=== PATIENT | female | born 1960 | race Caucasian/White ===

== ENCOUNTER 2020-02-05 20:45 | Emergency (ER) | payer MEDICARE, MEDICAID, SELFPAY ==
[2020-02-05 21:00] VITALS: BP 139/71; BP 150/61; PULSE 83; PULSE 98; RESP 24; TEMP 36.6; O2SAT 94; O2SAT 96; BMI 40.7
--- NOTE | 2020-02-05 21:14 | ECG_ITS ---
Test Reason : DIABEETES Blood Pressure : / mmHG Vent. Rate : 082 BPM Atrial Rate : 082 BPM P-R Int : 128 ms QRS Dur : 080 ms QT Int : 372 ms P-R-T Axes : 079 071 068 degrees QTc Int : 434 ms Normal sinus rhythm Normal ECG When compared with ECG of 23-AUG-2011 15:49, Questionable change in QRS axis T wave inversion no longer evident in Inferior leads Referred By: Gladys Pedersen Electronically Signed By:DESHAUN GOEL MD
--- NOTE | 2020-02-05 21:15 | XR_ITS ---
EXAMINATION: XR CHEST CLINICAL INFORMATION: Cough COMPARISON: Chest x-ray 10/25/2018 TECHNIQUE: 2 views of the chest were obtained. FINDINGS: Cardiac silhouette is normal in size. Lungs are well aerated. No lobar consolidation. No pleural effusion or pneumothorax. Moderate degenerative changes of the thoracic spine. Partially visualized fusion hardware of the cervical spine. Calcification adjacent to the right humeral head consistent with tendinosis. IMPRESSION: No acute pulmonary pathology.
--- NOTE | 2020-02-05 21:18 | ED.GENADULT ---
HPI - General Adult General Chief complaint: General Medical Stated complaint: nausea Time Seen by Provider: 02/05/20 21:14 History of Present Illness HPI narrative: This is a 59-year-old female smoker who states that she has become progressively more fatigued with associated increase in thirst and urination and noted that she had a bad yeast infection in her perineal area. She states that she contacted her primary care provider to set up an appointment, but is still waiting to hear back. Patient sources that she then proceeded to urgent care where she was noted to have a point of care glucose greater than 500. In addition, patient states that she has COPD and is not currently on any medication and has had some feelings of increased shortness of breath but denies any fevers, chills, new cough, increased phlegm production. In addition, patient states she has felt like she has gained weight with an increase in abdominal girth and some noted bilateral lower extremity swelling. Related Data Previous Rx's Medication Instructions Recorded gabapentin 800 mg tablet See Rx Instructions PO TID #60 tab 02/03/20 metformin 500 mg PO BID 14 Days #28 tab 02/06/20 Allergies Allergy/AdvReac Type Severity Reaction Status Date / Time bupropion [From WELLBUTRIN] Allergy Intermediate ITCHING Unverified 01/07/20 17:55 amoxicillin [AMOXICILLIN] Allergy Unknown UNKNOWN Unverified 01/07/20 17:55 influenza virus vaccine, Allergy Unknown RASH Unverified 01/07/20 17:55 specific [FLU VACCINE] latex [Latex] Allergy Unknown UNKNOWN Unverified 01/07/20 17:55 latex Allergy Unknown rash Unverified 10/20/19 00:00 phenazopyridine [Pyridium] Allergy Unknown Verified 08/26/19 00:00 Sulfa (Sulfonamide Allergy Unknown UNKNOWN, Unverified 01/07/20 17:55 Antibiotics) itch, itching vancomycin Allergy Unknown unknown Unverified 10/20/19 00:00 reaction adhesive bandage Allergy Unknown Uncoded 08/26/19 00:00 Influenza Vac Typ A&B Surf Allergy Unknown rash Uncoded 10/20/19 00:00 Ant influenza virus vaccine Allergy Unknown rash Uncoded 08/26/19 00:00 Review of Systems Review of Systems: Pertinent positives and negatives as stated in HPI 10 point review of systems is otherwise negative. PMFSH Past Medical History Source: nursing notes reviewed Medical History Asthma COPD (chronic obstructive pulmonary disease) Social History Social History Advance Directives: No Advance Directives Information Provided: Yes Physical Exam Vital Signs: Vital Signs: Vital Signs Temp Pulse Resp BP Pulse Ox 02/05/20 22:00 98.2 F 89 16 109/53 L 94 02/05/20 21:00 98 F 83 24 H 150/61 H 94 Body Mass Index 40.7 VITAL SIGNS: Reviewed. GENERAL: Well developed, well nourished, in no acute distress. HEAD: Normocephalic/atraumatic, EYES: PERRLA, EOMI intact without pain, no nystagmus/pallor/icterus noted EARS: Ext canals without abnormality, TMs non-bulging and non-erythematous NOSE: Nares patent bilateral OROPHARYNX: no oral lesions noted, posterior pharynx clear and non-erythematous without noted tonsillar enlargement/erythema/exudates NECK: Supple, no adenopathy LUNGS: Normal breath sounds. No adventitious sounds or accessory muscle use. SpO2<94%> CARDIOVASCULAR: Regular rate and rhythm without noted murmurs, no JVD , bilateral lower extremity non pitting edema. ABDOMEN: obese,Soft, non-tender, non-distended with bowel sounds. No rigidity. No guarding. No palpable masses or hernias noted MUSCULOSKELETAL: No tenderness, deformities, or effusions noted on gross inspection. EXTREMITIES: No cyanosis, clubbing or edema. SKIN: Inspection of the skin reveals no rashes, ulcerations, jaundice, pallor, or petechiae. NEUROLOGIC: Alert and oriented x 4. Strength and sensation to light touch were grossly intact Course Course Course Narrative: This is a 59-year-old female with history and clinical presentation consistent with new diagnosis of diabetes. Labs, chest x-ray, EKG, as well as 2 L of IV fluid were ordered. On review of all investigations there is no evidence for acute infection or anemia, no evidence of DKA /HHS and patient improved with 2 L of IV fluids with the decrease an point of care glucose from 558 to just over 300. patient was also treated for [place] vulvovaginitis with fluconazole as well as initial dose of metformin. All results and findings were discussed with her bedside and she was discharged to home with a 2 week prescription for metformin and strict recommendations to follow-up with her primary care provider. Review of EKG and chest x-ray were negative for any acute abnormalities. Medical Decision Making Lab Data Result diagrams: 02/05/20 21:25 02/05/20 21:25 Labs: Lab Results 02/05/20 02/05/20 02/05/20 Range/Units 21:25 21:25 21:25 WBC 7.8 (4.8-10.8) X10*3/uL RBC 4.84 (4.20-5.50) X10*6/uL Hgb 14.6 (12.0-16.0) g/dl Hct 43.4 (37-47) % MCV 89.7 (80-98) fL MCH 30.2 (27.0-33.0) pg MCHC 33.6 (31.0-35.0) g/dl RDW 13.0 (11.0-16.0) % Plt Count 149 L (160-400) X10*3/uL MPV 10.0 (9.4-12.3) fL Immature Gran % (Auto) 0.3 (0.0-0.4) % Neut % (Auto) 64.2 (45-73) % Lymph % (Auto) 29.0 (20-40) % [place] % (Auto) 5.8 (2-11) % Eos % (Auto) 0.4 (0-4) % Baso % (Auto) 0.3 (0-2) % Lymph # (Auto) 2.3 (1.2-4.9) X10*3/uL [place] # (Auto) 0.5 (0.1-1.2) X10*3/uL Eos # (Auto) 0.0 (0.0-0.4) X10*3/uL Baso # (Auto) 0.0 (0.0-0.2) X10*3/uL Abs Immat Gran (auto) 0.02 (0.00-0.03) X10*3/uL Absolute Neuts (auto) 5.0 (2.0-8.3) X10*3/uL Absolute Nucleated RBC 0.000 (0.0-0.012) X10*3/uL Nucleated RBC % (auto) 0.0 (0.0-0.2) /100WBC Smear Tech's Comments VERIFIED Sodium (135-145) mmol/L Potassium (3.3-5.1) mmol/l Chloride (96-108) mmol/L Carbon Dioxide (22-29) mmol/L Anion Gap (12-20) BUN (9-16) mg/dL Creatinine (0.5-1.4) mg/dL Estim Creat Clear Calc Estimated GFR Random Glucose (60-115) mg/dL Calcium (8.4-10.2) mg/dL Magnesium (1.6-2.6) mg/dL Total Bilirubin (0.0-1.0) mg/dL AST (5-31) U/L ALT (0-31) U/L Alkaline Phosphatase (39-117) U/L Total Protein (6.5-8.0) g/dL Albumin (3.5-5.0) g/dL Urine Color YELLOW Urine Appearance CLEAR Urine pH 6.5 (5.0-8.0) Ur Specific [place] <= 1.005 (1.005-1.025) Urine Protein NEG (NEG-TRACE) MG/DL Urine Glucose (UA) >=1000 H (NEG) MG/DL Urine Ketones 5 (NEG) MG/DL Urine Blood TRACE (NEG) Urine Nitrite NEG (NEG) Ur Leukocyte Esterase NEG (NEG) Urine RBC 0-2 (0) /HPF Urine WBC 0 (0-4) /HPF Ur Squamous Epith Cells TRACE /LPF Urine Bacteria TRACE /LPF Urine Yeast TRACE /HPF Acetone, Qual Small H (Negative) 02/05/20 Range/Units 21:25 WBC (4.8-10.8) X10*3/uL RBC (4.20-5.50) X10*6/uL Hgb (12.0-16.0) g/dl Hct (37-47) % MCV (80-98) fL MCH (27.0-33.0) pg MCHC (31.0-35.0) g/dl RDW (11.0-16.0) % Plt Count (160-400) X10*3/uL MPV (9.4-12.3) fL Immature Gran % (Auto) (0.0-0.4) % Neut % (Auto) (45-73) % Lymph % (Auto) (20-40) % [place] % (Auto) (2-11) % Eos % (Auto) (0-4) % Baso % (Auto) (0-2) % Lymph # (Auto) (1.2-4.9) X10*3/uL [place] # (Auto) (0.1-1.2) X10*3/uL Eos # (Auto) (0.0-0.4) X10*3/uL Baso # (Auto) (0.0-0.2) X10*3/uL Abs Immat Gran (auto) (0.00-0.03) X10*3/uL Absolute Neuts (auto) (2.0-8.3) X10*3/uL Absolute Nucleated RBC (0.0-0.012) X10*3/uL Nucleated RBC % (auto) (0.0-0.2) /100WBC Smear Tech's Comments Sodium 130 L (135-145) mmol/L Potassium 4.0 (3.3-5.1) mmol/l Chloride 90 L (96-108) mmol/L Carbon Dioxide 32 H (22-29) mmol/L Anion Gap 12 (12-20) BUN 6 L (9-16) mg/dL Creatinine 0.83 (0.5-1.4) mg/dL Estim Creat Clear Calc 86.4 Estimated GFR > 60 Random Glucose 558 H* (60-115) mg/dL Calcium 8.9 (8.4-10.2) mg/dL Magnesium 1.8 (1.6-2.6) mg/dL Total Bilirubin 0.3 (0.0-1.0) mg/dL AST 30 (5-31) U/L ALT 40 H (0-31) U/L Alkaline Phosphatase 98 (39-117) U/L Total Protein 6.5 (6.5-8.0) g/dL Albumin 3.8 (3.5-5.0) g/dL Urine Color Urine Appearance Urine pH (5.0-8.0) Ur Specific [place] (1.005-1.025) Urine Protein (NEG-TRACE) MG/DL Urine Glucose (UA) (NEG) MG/DL Urine Ketones (NEG) MG/DL Urine Blood (NEG) Urine Nitrite (NEG) Ur Leukocyte Esterase (NEG) Urine RBC (0) /HPF Urine WBC (0-4) /HPF Ur Squamous Epith Cells /LPF Urine Bacteria /LPF Urine Yeast /HPF Acetone, Qual (Negative) ECG Data Attestation: I personally reviewed and interpreted this ECG as follows: Interpretation: NSR, HR-82, no evidence of ischemia Discharge Plan Discharge Clinical Impression: Diabetes Qualifiers: Diabetes mellitus type: other specified (including SHANE) 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 Prescriptions: New metformin 500 mg tablet 500 mg PO BID 14 Days Qty: 28 RF: 0 No Action gabapentin 800 mg tablet See Rx Instructions PO TID Qty: 60 RF: 0 Referrals: Melissa Topete MD [Primary Care Provider] - 2 days (For further outpatient management of your newly diagnosed diabetes. You have been provided 14 days of metformin that should be taken twice daily.)
[2020-02-05 22:00] VITALS: BP 109/53; PULSE 89; RESP 16; TEMP 36.8; O2SAT 94
[2020-02-05 22:06] LABS: Basophils Percent Auto 0.3 % (0-2); Hematocrit 43.4 % (37-47); Hemoglobin 14.6 g/dl (12.0-16.0); Imm Gran Abs Auto 0.02 X10*3/uL (0.00-0.03); Imm Gran Pct Auto 0.3 % (0.0-0.4); MANUAL DIFF FLAG SCAN; Mean Corpuscular HGB Conc 33.6 g/dl (31.0-35.0); Mean Corpuscular Hemoglobin 30.2 pg (27.0-33.0); Mean Corpuscular Volume 89.7 fL (80-98); Monocytes Absolute Auto 0.5 X10*3/uL (0.1-1.2); PLT CLUMP 1; Red Blood Count 4.84 X10*6/uL (4.20-5.50); SCAN SMEAR FLAG 1
[2020-02-05 22:07] LABS: Eosinophils Percent Auto 0.4 % (0-4); Lymphocytes Absolute Auto 2.3 X10*3/uL (1.2-4.9); Monocytes Percent Auto 5.8 % (2-11); Neutrophils Percent Auto 64.2 % (45-73); Platelet Count 149 X10*3/uL (160-400); White Blood Count 7.8 X10*3/uL (4.8-10.8)
[2020-02-05 22:25] LABS: Glucose Urine UA >=1000 MG/DL (NEG); Leukocyte Esterase Urine NEG (NEG); Nitrite Urine NEG (NEG); PH 6.5 (5.0-8.0); Specific Gravity - Urine <= 1.005 (1.005-1.025); Urine Blood TRACE (NEG); Urine Ketones 5 MG/DL (NEG); Urine Protein NEG (NEG-TRACE)
[2020-02-05 22:30] LABS: Acetone, serum QL Small (Negative)
[2020-02-05 22:32] LABS: Appearance Urine CLEAR; Color Urine YELLOW
[2020-02-05 22:38] LABS: SLIDE REVIEW VERIFIED
[2020-02-05] MEDS: 0.9 % Sodium Chloride 1,000 ML 999 ML IVCONT (22:40)
[2020-02-05 22:45] LABS: Alanine Aminotransferase 40 U/L (0-31); Albumin Level 3.8 g/dL (3.5-5.0); Alkaline Phosphatase 98 U/L (39-117); Anion Gap 12 (12-20); Aspartate Amino Transferase 30 U/L (5-31); Bilirubin Total 0.3 mg/dL (0.0-1.0); Blood Urea Nitrogen 6 mg/dL (9-16); Calcium 8.9 mg/dL (8.4-10.2); Carbon Dioxide 32 mmol/L (22-29); Chloride 90 mmol/L (96-108); Creatinine Clr Calc Pharmacy 86.4; Estimated Glomerular Filt Rate > 60; Glucose Random 558 mg/dL (60-115); Magnesium 1.8 mg/dL (1.6-2.6); Sodium 130 mmol/L (135-145); Total Protein 6.5 g/dL (6.5-8.0)
[2020-02-05 23:06] LABS: Bacteria Urine TRACE /LPF; RBC Urine 0-2 /HPF (0); Squamous Epithelial Cell Urine TRACE /LPF; WBC Urine 0 /HPF (0-4)
[2020-02-05] MEDS: Fluconazole 150 MG TABLET PO (23:48)
[2020-02-06] MEDS: metFORMIN HCl 500 MG TABLET PO (00:04)
[2020-02-06 01:00] LABS: Glucose, Whole Blood 398 mg/dL (60-115)
[2020-02-06] MEDS: 0.9 % Sodium Chloride 1,000 ML 999 ML IVCONT (01:21)
== END 2020-02-06 02:08 | disposition home or self-care (01) ==
PROVIDERS: Emergency Provider Student in an Organized Health Care Education/Training Program; PCP Internal Medicine
DX: E13.69 Other specified diabetes mellitus with other specified complication (principal); J44.9 Chronic obstructive pulmonary disease, unspecified; Z79.899 Other long term (current) drug therapy
CPT/HCPCS: 36415; 71046; 80053; 81001; 81003; 82009; 82947; 83735; 85025; 93005; 96360; 96361; 99283; 99284

== ENCOUNTER → 2020-04-05 08:28 | Outpatient (BNVA) | payer MEDICARE, MEDICAID, SELFPAY | PROVIDERS: PCP Internal Medicine; Referring Provider Internal Medicine; Visit Provider Internal Medicine Endocrinology, Diabetes & Metabolism | DX: Z76.89 Persons encountering health services in other specified circumstances (principal) | CPT/HCPCS: 82947; 99202 ==

== ENCOUNTER 2020-04-05 09:51 | Outpatient (REF) | payer MEDICARE, MEDICAID, SELFPAY ==
[2020-04-05 14:18] LABS: Alanine Aminotransferase 31 U/L (0-31); Alkaline Phosphatase 64 U/L (39-117); Anion Gap 18 (12-20); Aspartate Amino Transferase 33 U/L (5-31); Bilirubin Total 0.3 mg/dL (0.0-1.0); Blood Urea Nitrogen 8 mg/dL (9-16); Carbon Dioxide 26 mmol/L (22-29); Chloride 98 mmol/L (96-108); Estimated Glomerular Filt Rate > 60; Glucose Fasting 139 mg/dL (60-99); Potassium 4.5 mmol/l (3.3-5.1); Sodium 137 mmol/L (135-145)
[2020-04-05 14:24] LABS: Alanine Aminotransferase 31 U/L (0-31); Aspartate Amino Transferase 33 U/L (5-31); Cholesterol 275 mg/dL; HDL Cholesterol 42 mg/dL; LDL Cholesterol Calculated 158 mg/dl; Triglycerides 379 mg/dL
[2020-04-05 14:42] LABS: Creatinine Urine 120.84 mg/dL; Free T4 (Free Thyroxine) 1.03 ng/dL (0.71-1.85); Microalbum/Creatinine Ratio Ur 9.9 ug/mg cr; Vitamin D 25-OH Total 29.8 ng/mL (>30)
[2020-04-05 14:43] LABS: Vitamin B12 580 pg/mL (200-900)
[2020-04-06 06:58] LABS: LDL Cholesterol Direct 210 mg/dL (<100)
== END 2020-04-05 09:52 | disposition home or self-care (01) ==
LOC: HO.10HDL 09:51
PROVIDERS: Absent Provider Internal Medicine; PCP Internal Medicine; Visit Provider Internal Medicine Endocrinology, Diabetes & Metabolism
DX: E11.40 Type 2 diabetes mellitus with diabetic neuropathy, unspecified (principal); E11.65 Type 2 diabetes mellitus with hyperglycemia
CPT/HCPCS: 80053; 80061; 82043; 82306; 82607; 82947; 83721; 84439; 84443; 84450; 84460; 99202

== ENCOUNTER → 2020-05-16 14:22 | Outpatient (BNVA) | payer MEDICARE, MEDICAID, SELFPAY | PROVIDERS: PCP Internal Medicine; Visit Provider Dietitian, Registered ==

== ENCOUNTER → 2020-06-13 11:06 | Outpatient (BNVA) | payer MEDICARE, MEDICAID, SELFPAY | PROVIDERS: PCP Internal Medicine; Visit Provider Dietitian, Registered ==

== ENCOUNTER → 2020-07-06 14:12 | Outpatient (BNVA) | payer MEDICARE, MEDICAID, SELFPAY | PROVIDERS: PCP Internal Medicine; Visit Provider Internal Medicine Endocrinology, Diabetes & Metabolism | DX: E11.65 Type 2 diabetes mellitus with hyperglycemia (principal); E11.42 Type 2 diabetes mellitus with diabetic polyneuropathy; E78.5 Hyperlipidemia, unspecified; E66.01 Morbid (severe) obesity due to excess calories; Z68.41 Body mass index [BMI] 40.0-44.9, adult | CPT/HCPCS: 82947; 99212 ==

== ENCOUNTER 2021-02-20 | Outpatient (REF) | payer MEDICARE, MEDICAID, SELFPAY ==
[2021-02-21 12:56] LABS: Influenza A PCR NEGATIVE (Negative); Influenza B PCR NEGATIVE (Negative); Resp Syncy Virus RNA Qual PCR NEGATIVE (Negative); SARS COV2 PCR INHOUSE NEGATIVE (Negative)
== END 2021-02-20 00:01 | disposition home or self-care (01) ==
LOC: HO.LNP
PROVIDERS: Visit Provider Physician Assistant Medical
DX: Z20.822 Contact with and (suspected) exposure to COVID-19 (principal); N39.0 Urinary tract infection, site not specified; J06.9 Acute upper respiratory infection, unspecified; R05.9 Cough, unspecified
CPT/HCPCS: 0241U; 87086; 87088; 87186

== ENCOUNTER 2021-02-21 16:22 | Outpatient (REF) | payer MEDICARE, MEDICAID, SELFPAY ==
--- NOTE | ~2021-02-21 | XR_ITS ---
EXAMINATION: XR CHEST CLINICAL INFORMATION: Cough. COMPARISON: Chest x-ray February 05, 2020 TECHNIQUE: 2 views of the chest were obtained. FINDINGS: Lungs are clear. No pulmonary vascular congestion. There is no pleural effusion. The heart size is normal. The cardiac and mediastinal contours are normal. . There are multilevel degenerative changes of dorsal spine. Orthopedic plate and screw at lower cervical spine. XR/XR chest 2V IMPRESSION: No acute abnormality of the chest.
== END 2021-02-21 16:23 | disposition home or self-care (01) ==
LOC: HO.HMGCX 16:22
PROVIDERS: PCP Internal Medicine; Visit Provider Physician Assistant Medical
DX: R05.9 Cough, unspecified (principal)
CPT/HCPCS: 71046

== ENCOUNTER 2021-03-12 12:45 | Emergency (ER) | payer MEDICARE, MEDICAID, SELFPAY ==
--- NOTE | ~2021-03-12 | CT_ITS ---
EXAMINATION: CT HEAD WITHOUT CONTRAST CLINICAL INFORMATION: Right facial droop. Rule out stroke. COMPARISON: None TECHNIQUE: Contiguous axial imaging was performed from the skull base to vertex without intravenous administration of contrast. This CT examination was performed using dose optimization techniques as appropriate, variously including the following: *Automated exposure control *Adjustment of mA and/or kV according to patient size (this includes techniques or standardized protocols for targeted exams where dose is matched to indication/reason for exam; i.e. extremities or head) *Use of iterative reconstruction technique DLP: 688 mGy-cm FINDINGS: There is no evidence of acute intracranial hemorrhage or territorial infarction. No abnormal mass effect or midline shift is seen. Viera to white matter differentiation is well preserved. No extra-axial fluid collections are identified. No acute fracture.. The mastoid air cells and visualized portions of the paranasal sinuses are well aerated. CT/CT head/brain wo con IMPRESSION: No CT evidence of acute intracranial hemorrhage or edematous territorial infarction. Subtle early/evolving infarctions may not be evident on noncontrast CT . Consider further evaluation with CTA head or MRI, as clinically indicated.. The report will be called to the ordering clinician by a [facility] [employer].
--- NOTE | ~2021-03-12 | CT_ITS ---
EXAMINATION: CT FACIAL BONES WITH CONTRAST CLINICAL INFORMATION: Right facial swelling. Rule out abscess. COMPARISON: None TECHNIQUE: Axial images through the facial bones following contrast. The patient received 85 mL Omnipaque [address] examination was performed using dose optimization techniques as appropriate, variously including the following: *Automated exposure control *Adjustment of mA and/or kV according to patient size (this includes techniques or standardized protocols for targeted exams where dose is matched to indication/reason for exam; i.e. extremities or head) *Use of iterative reconstruction technique DLP: 295 mGy-cm FINDINGS: There is soft tissue swelling over the right side of the face and inferior preseptal soft tissues of the right orbit. There is poor dentition and multiple dental caries. There is increased soft tissue seen adjacent to the upper and lower teeth/first premolar questionable for a focal abscess. This measures 1 x 2 cm axial image 65 series 2. There are inflammatory changes in the right maxillary sinus with membranous soft tissue thickening. The paranasal sinuses are otherwise clear. There are degenerative changes of the temporomandibular joints. Visualized intracranial structures are normal. There are small bilateral cervical lymph nodes. There are degenerative changes of the cervical spine. There is postsurgical change at the C3-C4 disc space level. CT/CT facial bones w con IMPRESSION: Poor dentition and multiple dental caries. Soft tissue swelling over the right side of the face and inferior preseptal orbital soft tissues. Focal asymmetric soft tissue measuring 1 x 2 cm in the right side of the face adjacent to the upper and lower teeth/first premolar questionable for abscess. Right maxillary sinus disease.
--- NOTE | ~2021-03-12 | XR_ITS ---
EXAMINATION: XR KNEE, RIGHT CLINICAL INFORMATION: Right knee pain, rule out fracture COMPARISON: None TECHNIQUE: Four views of the right knee. FINDINGS: Bones and soft tissues are normal. No fracture or joint effusion. Alignment is anatomic. Mild medial compartment joint space narrowing. No abnormal soft tissue calcification. XR/XR knee RT 3V IMPRESSION: Mild degenerative disease of the right knee.
[2021-03-12 12:56] VITALS: BP 125/77; PULSE 93; RESP 18; TEMP 36.7; O2SAT 96; BMI 37.8
--- NOTE | 2021-03-12 14:55 | PC.NURSE ---
patient being moved from [facility] to ED 21
[2021-03-12 15:18] LABS: MANUAL DIFF FLAG NO
[2021-03-12 15:22] LABS: Basophils Percent Auto 0.3 % (0-2); Eosinophils Absolute Auto 0.1 X10*3/uL (0.0-0.4); Eosinophils Percent Auto 0.6 % (0-4); Hemoglobin 14.3 g/dl (12.0-16.0); Imm Gran Abs Auto 0.03 X10*3/uL (0.00-0.03); Imm Gran Pct Auto 0.3 % (0.0-0.4); Lymphocytes Absolute Auto 2.9 X10*3/uL (1.2-4.9); Lymphocytes Percent Auto 33.3 % (20-40); Mean Corpuscular HGB Conc 32.5 g/dl (31.0-35.0); Mean Corpuscular Hemoglobin 30.4 pg (27.0-33.0); Mean Corpuscular Volume 93.6 fL (80.0-98.0); Mean Platelet Volume 9.3 fL (9.4-12.3); Monocytes Absolute Auto 0.6 X10*3/uL (0.1-1.2); Monocytes Percent Auto 6.7 % (2-11); Neutrophils Absolute Auto 5.1 x10*3/uL (2.0-8.3); Neutrophils Percent Auto 58.8 % (45-73); Platelet Count 167 X10*3/uL (160-400); Red Cell Distribution Width 12.8 % (11.0-16.0); White Blood Count 8.8 X10*3/uL (4.8-10.8)
--- NOTE | 2021-03-12 15:25 | PC.NURSE ---
patient a&ox3, iv inserted, labs drawn, patient noted to have rt facial droop- with rt facial swelling noted, pt has equal back closer and strength in upper/lower extremities, no arm drift noted, speaking in clear/full sentences, able to close both eyes equally.
[2021-03-12 15:39] LABS: Alanine Aminotransferase 16 U/L (0-31); Albumin Level 3.7 g/dL (3.5-5.0); Alkaline Phosphatase 58 U/L (39-117); Anion Gap 15 (12-20); Aspartate Amino Transferase 14 U/L (5-31); Bilirubin Total 0.3 mg/dL (0.0-1.0); Blood Urea Nitrogen 7 mg/dL (9-16); C Reactive Protein 1.29 mg/dL (< or = 0.50); Calcium 9.2 mg/dL (8.4-10.2); Carbon Dioxide 26 mmol/L (22-29); Chloride 100 mmol/L (96-108); Creatinine Clr Calc Pharmacy 106.7; Estimated Glomerular Filt Rate > 60; Glucose Random 135 mg/dL (60-115); Potassium 4.4 mmol/L (3.3-5.1); Sodium 137 mmol/L (135-145); Total Protein 6.6 g/dL (6.5-8.0)
[2021-03-12 15:56] LABS: Appearance Urine HAZY; Color Urine DK YELLOW; Glucose Urine UA NEG (NEG); Leukocyte Esterase Urine 2+ (NEG); Nitrite Urine POS (NEG); Specific Gravity - Urine >= 1.030 (1.005-1.025); UACC Culture Trigger YES; Urine Blood 2+ (NEG); Urine Ketones 5 MG/DL (NEG); Urine Protein 1+ MG/DL (NEG-TRACE)
[2021-03-12 16:00] VITALS: BP 124/80; PULSE 92; RESP 18; TEMP 36.8; O2SAT 94
--- NOTE | 2021-03-12 16:03 | PC.NURSE ---
pt at radiology
[2021-03-12 16:04] LABS: Erythrocyte Sedimentation Rate 16 MM/HR (0-20)
[2021-03-12 16:35] LABS: WBC Urine TNTC /HPF (0-4)
[2021-03-12 16:36] LABS: Bacteria Urine 2+ /LPF; Calcium Oxalate Crystals Urine 1+ /LPF; Mucus Urine 1+ /LPF; Squamous Epithelial Cell Urine 1+ /LPF
--- NOTE | 2021-03-12 16:49 | ECG_ITS ---
Test Reason : CHEST PAIN Blood Pressure : / mmHG Vent. Rate : 087 BPM Atrial Rate : 087 BPM P-R Int : 132 ms QRS Dur : 074 ms QT Int : 344 ms P-R-T Axes : 070 072 066 degrees QTc Int : 413 ms Normal sinus rhythm Normal ECG When compared with ECG of 05-FEB-2020 22:18, No significant change was found Referred By: Tobias Mercer Electronically Signed By:DESHAUN GOEL MD
--- NOTE | 2021-03-12 16:51 | ED.GENADULT ---
HPI - General Adult General Chief complaint: General Medical Stated complaint: dental pain, rt knee pain, swelling Time Seen by Provider: 03/12/21 14:35 Source: patient and family () Mode of arrival: ambulatory Limitations: no limitations History of Present Illness HPI narrative: 60-year-old female who presents emergency department right-sided facial pain, right sided facial droop, right arm numbness, headache, nausea and dysuria x2 days. The patient is a difficult informed that his questions seem to make her angry. Patient states that 4 days prior she had chest pain the center of her chest, she states that she was seen in urgent care clinic and then went to [facility] and was discharged. She states that yesterday at 9:00 a.m. she developed right-sided facial pain with swelling. She felt that she may have had a dental infection. She states that this morning at 4:00 a.m., she woke up and her right side of her face was swollen. She also states that she was unable to move her right lip. She reported her that she had right arm tingling this but she denied this when I asked. She had associated headache which is since resolved. She had nausea with no vomiting. She has also noted dysuria and urinary frequency for 2 days and believes that she has a urinary tract infection. She is also complaining of right knee pain that she states is chronic but she has had for many years but it is worse over the past 1-2 weeks. The patient denies fever, chills, chest pain, shortness of breath, dyspnea on exertion. She has not had any myalgias arthralgias. She denies any known recent tick bites, she does not have any pets and she states she has not been in a wooded areas. Patient does have a history of opiate addiction but takes Suboxone 8 mg/2 mg twice a day. The patient was initially triaged EM area however given her multiple complaints, I did evaluate her in EM area and had her transferred to the emergency department for workup for possible stroke. Related Data Home Medications Medication Instructions Recorded Confirmed buprenorphine 8 mg-naloxone 2 mg 1 film BUCCAL DAILY 02/11/20 10/19/20 sublingual film (Suboxone) risperidone 4 mg tablet 4 mg PO BEDTIME 02/11/20 10/19/20 trazodone 100 mg tablet mg PO 02/11/20 10/19/20 dextroamphetamine-amphetamine 30 1 tab PO BID 02/18/20 10/19/20 mg tablet divalproex 500 mg tablet,extended mg PO 02/18/20 10/19/20 release 24 hr ondansetron HCl 4 mg tablet 4 mg PO Q8H 04/12/20 10/19/20 Previous Rx's Medication Instructions Recorded blood sugar diagnostic (FreeStyle #100 ea 02/23/20 Lite Strips) blood-glucose meter (FreeStyle #1 ea 02/23/20 [place] Lite) lancets 28 gauge (FreeStyle #100 ea 02/23/20 Lancets) diclofenac sodium 1 % topical gel 2 g TOPICAL BID PRN #100 g 06/16/20 walker with seat #1 ea 08/11/20 Shower Chair #1 ea 08/18/20 albuterol sulfate 90 mcg/actuation 2 puff PO Q4H PRN #8.5 g 10/19/20 aerosol inhaler metformin 1,000 mg tablet 1,000 mg PO BID 30 Days #60 tab 11/16/20 Symbicort 160 mcg-4.5 2 puff PO BID #10.2 g NS 12/28/20 mcg/actuation HFA aerosol inhaler (budesonide-formoterol) cefpodoxime 200 mg tablet 200 mg PO BID #14 tab 02/20/21 doxycycline hyclate 100 mg tablet 100 mg PO BID 5 Days #10 tab 02/20/21 prednisone 20 mg tablet 40 mg PO DAILY 5 Days #10 tab 02/20/21 gabapentin 800 mg tablet 800 mg PO TID #90 tab 03/06/21 Allergies Allergy/AdvReac Type Severity Reaction Status Date / Time bupropion [From WELLBUTRIN] Allergy Intermediate ITCHING Verified 03/12/21 12:56 influenza virus vaccine, Allergy Unknown RASH Verified 03/12/21 12:56 specific [FLU VACCINE] latex Allergy Unknown rash Verified 03/12/21 12:56 Sulfa (Sulfonamide Allergy Unknown UNKNOWN, Verified 03/12/21 12:56 Antibiotics) itch, itching Review of Systems Review of Systems: Yes all other systems are reviewed and are negative PMFSH Past Medical History Medical History Cigarette smoker motivated to quit COPD (chronic obstructive pulmonary disease) Depression Diabetes mellitus with hyperglycemia, without long-term current use of insulin Diabetic neuropathy Dyslipidemia Dysuria GERD (gastroesophageal reflux disease) Left shoulder pain Lumbar degenerative disc disease Mixed incontinence urge and stress Nausea Obesity Opiate addiction TEA on CPAP Patchy loss of hair Smoker unmotivated to quit Type 2 diabetes mellitus without complication, with no history of insulin use Surgical History H/O colonoscopy H/O tubal ligation History of lumbar fusion History of lumbar spinal fusion History of partial hysterectomy Hx of cholecystectomy Family History Family History Father Aneurysm Social History Social History Alcohol intake: never Cigarette Packs Per Day: 0.5 Cigarettes Per Day: 10 Advance Directives: No Advance Directives Information Provided: Yes Patient : No Physical Exam Vital Signs: Vital Signs: Last Vital Signs Temp 98.3 F 03/12/21 16:00 Pulse 92 03/12/21 16:00 Resp 18 03/12/21 16:00 BP 124/80 03/12/21 16:00 Pulse Ox 94 03/12/21 16:00 Body Mass Index 37.8 Const: Other: Awake, alert, female patient, she gets extremely agitated when she has to answer questions and gets agitated with her when he corrects her answers. She is oriented to person and place. She does not appear to be in any distress. Orientation/consciousness: oriented to person and oriented to place HENMT: Other: The patient's right side of her face appears to be swollen compared to her left, she does have a right facial droop involving her lower half of her face only and spares her forehead bilaterally, she does not have any tenderness with palpation of her buddhist artery areas, she does however have tenderness with palpation over her upper and lower mandible, she does have poor dentition but I do not see any obvious gingival swelling or abscess. Eyes: General: appearance normal, both eyes and all related structures Pupils: Pinpoint pupils EOM: EOMs intact bilaterally Neck: Neck: Yes normal visual inspection, Yes no lymphadenopathy, Yes trachea midline and Yes supple Chest: Chest palpation & inspection: normal inspection of the chest and normal palpation of entire chest wall Resp: Effort & Inspection: normal respiratory effort and able to speak in complete sentences Auscultation: clear to auscultation bilaterally Cardio: Rate: regular rate Rhythm: regular rhythm Heart sounds: S1 normal heart sound present, S2 normal heart sound present and no murmurs GI: Inspection: Yes normal to inspection Palpation (GI): Soft to palpation, nontender and no guarding Auscultation: normal bowel sounds : General: Yes no CVA tenderness Back/Spine/Pelvis: Back: no CVA tenderness Skin: General skin exam: no rashes or lesions noted Neuro: General: oriented to person and oriented to place Cranial nerves: Yes Bilaterally intact EOM present, Yes Nystagmus not present, Yes Midline tongue present, Yes Symmetric palate elevation present and Yes Individual cranial nerve findings present II: normal, III: normal, IV: normal, V: normal, : normal, VII: abnormal (Right lower facial droop, spares forehead), VIII: normal, IX: normal, X: normal, XI: normal and XII: normal Cognition (Neuro): normal cognition Motor exam (neuro): 5/5 motor strength present throughout Extrem: Other: Patient has tenderness palpation of her right knee, she is able walk in the emergency department without any difficulty General: Yes normal to inspection Psych: Appearance: grossly normal Speech and movement: Normal speech and movement present Affect: Labile affect present Attitude: Belligerent attititude/behavior present Thought process: Normal thought process present Thought content: Normal thought content present NIH Stroke Scale Internal: Initial- Upon Arrival (Into the emergency department) Level of Consciousness: Alert Level of Consciousness Questions: Answers both questions correctly Level of Consciousness Commands: Performs both tasks correctly Best Gaze: Normal Visual: No visual loss Facial Palsy: Partial paralysis Motor Arm (Right): No drift Motor Arm (Left): No drift Motor Leg (Right): No drift Motor Leg (Left): No drift Limb Ataxia: Absent Sensory: Normal Best Language: No aphasia Dysarthia: Normal Extinction and Inattention: No abnormality Score: 2 Course Course Course Narrative: 60-year-old female who presents emergency department for evaluation of right-sided facial pain which began 24 hours prior to evaluation, right sided facial pain and swelling with lower right-sided facial droop that spares the upper face which began at 4:00 a.m. on the day of arrival. She did report right sided arm tingling this to her but this is now resolved. She has also had dysuria for 2 days. Initial vital signs were normal and repeat vital signs at 4:00 p.m. were normal. Physical examination did reveal a partial right facial droop to the lower face sparing the upper face. She also has right-sided facial swelling with tenderness with palpation of her right upper and lower mandible with dental caries. The patient's NIH stroke scale was 2. The patient's symptoms have been present for greater than 24 hours therefore she is outside of the thrombolytics window therefore she was not given tPA and she is outside of the clot retrieval window. Differential includes but is not limited to stroke, Egan's palsy, dental infection, Lyme infection, urinary tract infection. 1706: Laboratory evaluation: CBC was normal. CMP revealed an elevated glucose of 135. CRP was slightly elevated at 1.29. ESR was normal at 16. UA revealed 2+ blood, positive nitrates, 2+ leukocyte esterase. Microscopic revealed 1-4 RBCs, too numerous to count wbc's, 1+ epithelial cells, 1+ calcium oxalate crystals, 2+ bacteria. Given these findings, the patient will be treated for urinary tract infection and possible facial infection with ceftriaxone 1 g IV. I am also concerned that the patient may have a stroke given her right facial droop and reported right arm tingling this which is now resolved. The patient is outside of the thrombo lytic and clot retrieval window.The nurse swallowing test. The patient will be treated for nicotine withdrawal with nicotine patch 21 mg to her skin and nicotine gum. The patient is on Suboxone and this medication will need to be continued. I will discuss admission with the covering hospitalist. 1723: I did discuss the patient's presentation with Dr. Agustin and the patient will be admitted for further management and workup. After discussion, I did order a CT scan of the patient's face with IV contrast to rule out a possible dental abscess as the cause of her facial swelling and pain. Medical Decision Making Lab Data Result diagrams: 03/12/21 15:14 03/12/21 15:14 Labs: Lab Results 03/12/21 03/12/21 03/12/21 Range/Units 15:14 15:14 15:14 WBC 8.8 (4.8-10.8) X10*3/uL RBC 4.70 (4.20-5.50) X10*6/uL Hgb 14.3 (12.0-16.0) g/dl Hct 44.0 (37.0-47.0) % MCV 93.6 (80.0-98.0) fL MCH 30.4 (27.0-33.0) pg MCHC 32.5 (31.0-35.0) g/dl RDW 12.8 (11.0-16.0) % Plt Count 167 (160-400) X10*3/uL MPV 9.3 L (9.4-12.3) fL Immature Gran % (Auto) 0.3 (0.0-0.4) % Neut % (Auto) 58.8 (45-73) % Lymph % (Auto) 33.3 (20-40) % Weber % (Auto) 6.7 (2-11) % Eos % (Auto) 0.6 (0-4) % Baso % (Auto) 0.3 (0-2) % Lymph # (Auto) 2.9 (1.2-4.9) X10*3/uL [place] # (Auto) 0.6 (0.1-1.2) X10*3/uL Eos # (Auto) 0.1 (0.0-0.4) X10*3/uL Baso # (Auto) 0.0 (0.0-0.2) X10*3/uL Abs Immat Gran (auto) 0.03 (0.00-0.03) X10*3/uL Absolute Neuts (auto) 5.1 (2.0-8.3) x10*3/uL Absolute Nucleated RBC 0.000 (0.0-0.012) X10*3/uL Nucleated RBC % (auto) 0.0 (0.0-0.2) /100WBC ESR 16 (0-20) MM/HR Sodium 137 (135-145) mmol/L Potassium 4.4 (3.3-5.1) mmol/L Chloride 100 (96-108) mmol/L Carbon Dioxide 26 (22-29) mmol/L Anion Gap 15 (12-20) BUN 7 L (9-16) mg/dL Creatinine 0.66 (0.5-1.4) mg/dL Estim Creat Clear Calc 106.7 Estimated GFR > 60 Random Glucose 135 H D (60-115) mg/dL Calcium 9.2 (8.4-10.2) mg/dL Total Bilirubin 0.3 (0.0-1.0) mg/dL AST 14 D (5-31) U/L ALT 16 (0-31) U/L Alkaline Phosphatase 58 (39-117) U/L C-Reactive Protein 1.29 H (< or = 0.50) mg/dL Total Protein 6.6 (6.5-8.0) g/dL Albumin 3.7 (3.5-5.0) g/dL Urine Color Urine Appearance Urine pH (5.0-8.0) Ur Specific [place] (1.005-1.025) Urine Protein (NEG-TRACE) MG/DL Urine Glucose (UA) (NEG) MG/DL Urine Ketones (NEG) MG/DL Urine Blood (NEG) Urine Nitrite (NEG) Ur Leukocyte Esterase (NEG) Urine RBC (0) /HPF Urine WBC (0-4) /HPF Ur Squamous Epith Cells /LPF Calcium Oxalate Crystal /LPF Urine Bacteria /LPF Urine Mucus /LPF 03/12/21 Range/Units 15:50 WBC (4.8-10.8) X10*3/uL RBC (4.20-5.50) X10*6/uL Hgb (12.0-16.0) g/dl Hct (37.0-47.0) % MCV (80.0-98.0) fL MCH (27.0-33.0) pg MCHC (31.0-35.0) g/dl RDW (11.0-16.0) % Plt Count (160-400) X10*3/uL MPV (9.4-12.3) fL Immature Gran % (Auto) (0.0-0.4) % Neut % (Auto) (45-73) % Lymph % (Auto) (20-40) % Weber % (Auto) (2-11) % Eos % (Auto) (0-4) % Baso % (Auto) (0-2) % Lymph # (Auto) (1.2-4.9) X10*3/uL [place] # (Auto) (0.1-1.2) X10*3/uL Eos # (Auto) (0.0-0.4) X10*3/uL Baso # (Auto) (0.0-0.2) X10*3/uL Abs Immat Gran (auto) (0.00-0.03) X10*3/uL Absolute Neuts (auto) (2.0-8.3) x10*3/uL Absolute Nucleated RBC (0.0-0.012) X10*3/uL Nucleated RBC % (auto) (0.0-0.2) /100WBC ESR (0-20) MM/HR Sodium (135-145) mmol/L Potassium (3.3-5.1) mmol/L Chloride (96-108) mmol/L Carbon Dioxide (22-29) mmol/L Anion Gap (12-20) BUN (9-16) mg/dL Creatinine (0.5-1.4) mg/dL Estim Creat Clear Calc Estimated GFR Random Glucose (60-115) mg/dL Calcium (8.4-10.2) mg/dL Total Bilirubin (0.0-1.0) mg/dL AST (5-31) U/L ALT (0-31) U/L Alkaline Phosphatase (39-117) U/L C-Reactive Protein (< or = 0.50) mg/dL Total Protein (6.5-8.0) g/dL Albumin (3.5-5.0) g/dL Urine Color DK YELLOW Urine Appearance HAZY Urine pH 6.0 (5.0-8.0) Ur Specific [place] >= 1.030 H (1.005-1.025) Urine Protein 1+ H (NEG-TRACE) MG/DL Urine Glucose (UA) NEG (NEG) MG/DL Urine Ketones 5 (NEG) MG/DL Urine Blood 2+ H (NEG) Urine Nitrite POS H (NEG) Ur Leukocyte Esterase 2+ H (NEG) Urine RBC 1-4 (0) /HPF Urine WBC TNTC H (0-4) /HPF Ur Squamous Epith Cells 1+ /LPF Calcium Oxalate Crystal 1+ /LPF Urine Bacteria 2+ /LPF Urine Mucus 1+ /LPF Discharge Plan Discharge Patient Disposition: Admitted As Inpatient Prescriptions: No Action (DME) blood-glucose meter [FreeStyle [place] Lite] Kit See Rx Instructions .ROUTE .MEDSUPPLY Qty: 1 RF: 0 (DME) FreeStyle Lite Strips Strip See Rx Instructions .ROUTE .MEDSUPPLY Qty: 100 RF: 5 (DME) lancets [FreeStyle Lancets] 28 gauge misc See Rx Instructions .ROUTE .MEDSUPPLY Qty: 100 RF: 5 ondansetron HCl 4 mg tablet 4 mg PO Q8H RF: 0 (DME) walker with seat See Rx Instructions .Route .MEDSUPPLY Qty: 1 RF: 0 (DME) Shower Chair Misc See Rx Instructions .ROUTE .MEDSUPPLY Qty: 1 RF: 0 metformin 1,000 mg tablet 1,000 mg PO BID 30 Days Qty: 60 RF: 3 budesonide-formoterol [Symbicort] 160-4.5 mcg/actuation HFA aerosol inhaler 2 puff PO BID Qty: 10.2 RF: 1 gabapentin 800 mg tablet 800 mg PO TID Qty: 90 RF: 0 risperidone 4 mg tablet 4 mg PO BEDTIME RF: 0 trazodone 100 mg tablet PO RF: 0 buprenorphine-naloxone [Suboxone] 8-2 mg film 1 film buccal DAILY RF: 0 dextroamphetamine-amphetamine 30 mg tablet 1 tab PO BID RF: 0 divalproex 500 mg tablet extended release 24 hr PO RF: 0 albuterol sulfate 90 mcg/actuation HFA aerosol inhaler 2 puff PO Q4H PRN (Reason: dyspnea) Qty: 8.5 RF: 3 diclofenac sodium 1 % gel 2 g topical BID PRN (Reason: left shoulder pain) Qty: 100 RF: 0 doxycycline hyclate 100 mg tablet 100 mg PO BID 5 Days Qty: 10 RF: 0 cefpodoxime 200 mg tablet 200 mg PO BID Qty: 14 RF: 0 prednisone 20 mg tablet 40 mg PO DAILY 5 Days Qty: 10 RF: 0
[2021-03-12] MEDS: Nicotine Polacrilex 2 MG GUM BUCCAL (17:02)
[2021-03-12] MEDS: Nicotine 21 MG PATCH.TD24 TRANSDERMA (17:02)
[2021-03-12 17:17] LABS: Troponin-I High Sensitivity 3.6 ng/L (<3.5-17.0)
[2021-03-12 17:36] LABS: COVID-19 Test Negative (Negative)
[2021-03-12 18:00] VITALS: BP 126/82; PULSE 90; RESP 18; TEMP 36.8; O2SAT 95
--- NOTE | 2021-03-12 19:00 | PC.NURSE ---
patient loud and inappropriate/rude with staff, pt is angry that she has to stay in the hospital
[2021-03-12 20:00] VITALS: BP 126/79; PULSE 94; RESP 18; TEMP 36.8; O2SAT 96
--- NOTE | 2021-03-12 20:12 | ED.GENADULT ---
HPI - General Adult General Chief complaint: General Medical Stated complaint: dental pain, rt knee pain, swelling Time Seen by Provider: 03/12/21 14:35 Source: patient and family () Mode of arrival: ambulatory Limitations: no limitations Related Data Home Medications Medication Instructions Recorded Confirmed buprenorphine 8 mg-naloxone 2 mg 1 film BUCCAL DAILY 02/11/20 03/12/21 sublingual film (Suboxone) risperidone 4 mg tablet 4 mg PO BEDTIME 02/11/20 03/12/21 trazodone 100 mg tablet 100 mg PO BEDTIME 02/11/20 03/12/21 dextroamphetamine-amphetamine 30 1 tab PO BID 02/18/20 03/12/21 mg tablet divalproex 500 mg tablet,extended 1 tab PO TID 03/12/21 03/12/21 release 24 hr Previous Rx's Medication Instructions Recorded blood sugar diagnostic (FreeStyle #100 ea 02/23/20 Lite Strips) blood-glucose meter (FreeStyle #1 ea 02/23/20 [place] Lite) lancets 28 gauge (FreeStyle #100 ea 02/23/20 Lancets) walker with seat #1 ea 08/11/20 Shower Chair #1 ea 08/18/20 albuterol sulfate 90 mcg/actuation 2 puff PO Q4H PRN #8.5 g 10/19/20 aerosol inhaler metformin 1,000 mg tablet 1,000 mg PO BID 30 Days #60 tab 11/16/20 Symbicort 160 mcg-4.5 2 puff PO BID #10.2 g NS 12/28/20 mcg/actuation HFA aerosol inhaler (budesonide-formoterol) gabapentin 800 mg tablet 800 mg PO TID #90 tab 03/06/21 amoxicillin 875 mg-potassium 1 tab PO BID #20 tab 03/12/21 clavulanate 125 mg tablet (Augmentin) Allergies Allergy/AdvReac Type Severity Reaction Status Date / Time bupropion [From WELLBUTRIN] Allergy Intermediate ITCHING Verified 03/12/21 12:56 influenza virus vaccine, Allergy Unknown RASH Verified 03/12/21 12:56 specific [FLU VACCINE] latex Allergy Unknown rash Verified 03/12/21 12:56 Sulfa (Sulfonamide Allergy Unknown UNKNOWN, Verified 03/12/21 12:56 Antibiotics) itch, itching PMFSH Past Medical History Medical History Cigarette smoker motivated to quit COPD (chronic obstructive pulmonary disease) Depression Diabetes mellitus with hyperglycemia, without long-term current use of insulin Diabetic neuropathy Dyslipidemia Dysuria GERD (gastroesophageal reflux disease) Left shoulder pain Lumbar degenerative disc disease Mixed incontinence urge and stress Nausea Obesity Opiate addiction TEA on CPAP Patchy loss of hair Smoker unmotivated to quit Type 2 diabetes mellitus without complication, with no history of insulin use Surgical History H/O colonoscopy H/O tubal ligation History of lumbar fusion History of lumbar spinal fusion History of partial hysterectomy Hx of cholecystectomy Family History Family History Father Aneurysm Social History Social History Alcohol intake: never Cigarette Packs Per Day: 0.5 Cigarettes Per Day: 10 Advance Directives: No Advance Directives Information Provided: Yes Patient : No Physical Exam Vital Signs: Vital Signs: Last Vital Signs Temp 98.2 F 03/12/21 20:00 Pulse 94 03/12/21 20:00 Resp 18 03/12/21 20:00 BP 126/79 03/12/21 20:00 Pulse Ox 96 03/12/21 20:00 Body Mass Index 37.8 Course Course Course Narrative: Taken at sign-out pending results of CT scan. CT scan shows dental infection with possible developing abscess. Repeat exam shows facial asymmetry is most consistent with swelling as opposed to droop or neuro deficit Will treat with IV antibiotics and discharged home. No evidence for stroke or other neurologic abnormality. Medical Decision Making Lab Data Result diagrams: 03/12/21 15:14 03/12/21 15:14 Labs: Lab Results 03/12/21 03/12/21 03/12/21 Range/Units 15:14 15:14 15:14 WBC 8.8 (4.8-10.8) X10*3/uL RBC 4.70 (4.20-5.50) X10*6/uL Hgb 14.3 (12.0-16.0) g/dl Hct 44.0 (37.0-47.0) % MCV 93.6 (80.0-98.0) fL MCH 30.4 (27.0-33.0) pg MCHC 32.5 (31.0-35.0) g/dl RDW 12.8 (11.0-16.0) % Plt Count 167 (160-400) X10*3/uL MPV 9.3 L (9.4-12.3) fL Immature Gran % (Auto) 0.3 (0.0-0.4) % Neut % (Auto) 58.8 (45-73) % Lymph % (Auto) 33.3 (20-40) % [place] % (Auto) 6.7 (2-11) % Eos % (Auto) 0.6 (0-4) % Baso % (Auto) 0.3 (0-2) % Lymph # (Auto) 2.9 (1.2-4.9) X10*3/uL [place] # (Auto) 0.6 (0.1-1.2) X10*3/uL Eos # (Auto) 0.1 (0.0-0.4) X10*3/uL Baso # (Auto) 0.0 (0.0-0.2) X10*3/uL Abs Immat Gran (auto) 0.03 (0.00-0.03) X10*3/uL Absolute Neuts (auto) 5.1 (2.0-8.3) x10*3/uL Absolute Nucleated RBC 0.000 (0.0-0.012) X10*3/uL Nucleated RBC % (auto) 0.0 (0.0-0.2) /100WBC ESR 16 (0-20) MM/HR Sodium 137 (135-145) mmol/L Potassium 4.4 (3.3-5.1) mmol/L Chloride 100 (96-108) mmol/L Carbon Dioxide 26 (22-29) mmol/L Anion Gap 15 (12-20) BUN 7 L (9-16) mg/dL Creatinine 0.66 (0.5-1.4) mg/dL Estim Creat Clear Calc 106.7 Estimated GFR > 60 Random Glucose 135 H D (60-115) mg/dL Calcium 9.2 (8.4-10.2) mg/dL Total Bilirubin 0.3 (0.0-1.0) mg/dL AST 14 D (5-31) U/L ALT 16 (0-31) U/L Alkaline Phosphatase 58 (39-117) U/L Troponin I High Sens (<3.5-17.0) ng/L C-Reactive Protein 1.29 H (< or = 0.50) mg/dL Total Protein 6.6 (6.5-8.0) g/dL Albumin 3.7 (3.5-5.0) g/dL Urine Color Urine Appearance Urine pH (5.0-8.0) Ur Specific [place] (1.005-1.025) Urine Protein (NEG-TRACE) MG/DL Urine Glucose (UA) (NEG) MG/DL Urine Ketones (NEG) MG/DL Urine Blood (NEG) Urine Nitrite (NEG) Ur Leukocyte Esterase (NEG) Urine RBC (0) /HPF Urine WBC (0-4) /HPF Ur Squamous Epith Cells /LPF Calcium Oxalate Crystal /LPF Urine Bacteria /LPF Urine Mucus /LPF COVID-19 (PRINCESS) (Negative) COVID-19 Clin Com 03/12/21 03/12/21 03/12/21 Range/Units 15:17 15:50 17:03 WBC (4.8-10.8) X10*3/uL RBC (4.20-5.50) X10*6/uL Hgb (12.0-16.0) g/dl Hct (37.0-47.0) % MCV (80.0-98.0) fL MCH (27.0-33.0) pg MCHC (31.0-35.0) g/dl RDW (11.0-16.0) % Plt Count (160-400) X10*3/uL MPV (9.4-12.3) fL Immature Gran % (Auto) (0.0-0.4) % Neut % (Auto) (45-73) % Lymph % (Auto) (20-40) % [place] % (Auto) (2-11) % Eos % (Auto) (0-4) % Baso % (Auto) (0-2) % Lymph # (Auto) (1.2-4.9) X10*3/uL [place] # (Auto) (0.1-1.2) X10*3/uL Eos # (Auto) (0.0-0.4) X10*3/uL Baso # (Auto) (0.0-0.2) X10*3/uL Abs Immat Gran (auto) (0.00-0.03) X10*3/uL Absolute Neuts (auto) (2.0-8.3) x10*3/uL Absolute Nucleated RBC (0.0-0.012) X10*3/uL Nucleated RBC % (auto) (0.0-0.2) /100WBC ESR (0-20) MM/HR Sodium (135-145) mmol/L Potassium (3.3-5.1) mmol/L Chloride (96-108) mmol/L Carbon Dioxide (22-29) mmol/L Anion Gap (12-20) BUN (9-16) mg/dL Creatinine (0.5-1.4) mg/dL Estim Creat Clear Calc Estimated GFR Random Glucose (60-115) mg/dL Calcium (8.4-10.2) mg/dL Total Bilirubin (0.0-1.0) mg/dL AST (5-31) U/L ALT (0-31) U/L Alkaline Phosphatase (39-117) U/L Troponin I High Sens 3.6 (<3.5-17.0) ng/L C-Reactive Protein (< or = 0.50) mg/dL Total Protein (6.5-8.0) g/dL Albumin (3.5-5.0) g/dL Urine Color DK YELLOW Urine Appearance HAZY Urine pH 6.0 (5.0-8.0) Ur Specific [place] >= 1.030 H (1.005-1.025) Urine Protein 1+ H (NEG-TRACE) MG/DL Urine Glucose (UA) NEG (NEG) MG/DL Urine Ketones 5 (NEG) MG/DL Urine Blood 2+ H (NEG) Urine Nitrite POS H (NEG) Ur Leukocyte Esterase 2+ H (NEG) Urine RBC 1-4 (0) /HPF Urine WBC TNTC H (0-4) /HPF Ur Squamous Epith Cells 1+ /LPF Calcium Oxalate Crystal 1+ /LPF Urine Bacteria 2+ /LPF Urine Mucus 1+ /LPF COVID-19 ([facility]INCESS) Negative (Negative) COVID-19 Clin Com See Note Discharge Plan Discharge Clinical Impression: Dental abscess Patient Disposition: Home, Self-Care Instructions: Dental Abscess (ED) Prescriptions: New amoxicillin-pot clavulanate [Augmentin] 875-125 mg tablet 1 tab PO BID Qty: 20 RF: 0 No Action (DME) blood-glucose meter [FreeStyle [place] Lite] Kit See Rx Instructions .ROUTE .MEDSUPPLY Qty: 1 RF: 0 (DME) FreeStyle Lite Strips Strip See Rx Instructions .ROUTE .MEDSUPPLY Qty: 100 RF: 5 (DME) lancets [FreeStyle Lancets] 28 gauge misc See Rx Instructions .ROUTE .MEDSUPPLY Qty: 100 RF: 5 (DME) walker with seat See Rx Instructions .Route .MEDSUPPLY Qty: 1 RF: 0 (DME) Shower Chair Misc See Rx Instructions .ROUTE .MEDSUPPLY Qty: 1 RF: 0 metformin 1,000 mg tablet 1,000 mg PO BID 30 Days Qty: 60 RF: 3 budesonide-formoterol [Symbicort] 160-4.5 mcg/actuation HFA aerosol inhaler 2 puff PO BID Qty: 10.2 RF: 1 gabapentin 800 mg tablet 800 mg PO TID Qty: 90 RF: 0 divalproex 500 mg tablet extended release 24 hr 1 tab PO TID RF: 0 risperidone 4 mg tablet 4 mg PO BEDTIME RF: 0 trazodone 100 mg tablet 100 mg PO BEDTIME RF: 0 buprenorphine-naloxone [Suboxone] 8-2 mg film 1 film buccal DAILY RF: 0 dextroamphetamine-amphetamine 30 mg tablet 1 tab PO BID RF: 0 albuterol sulfate 90 mcg/actuation HFA aerosol inhaler 2 puff PO Q4H PRN (Reason: dyspnea) Qty: 8.5 RF: 3
[2021-03-12] MEDS: Piperacillin Sodium/Tazobactam 3.375 GM in 0.9 % Sodium Chloride 50 ML IV (20:17)
[2021-03-12] MEDS: Buprenorphine/Naloxone 8/2 mg FILM 1 FILM SUBLINGUAL (20:17)
--- NOTE | 2021-03-12 20:19 | PC.NURSE ---
patient to discharge home after abx
[2021-03-13 17:57] LABS: A. Phagocytphilium DNA,RT-PCR NOT DETECTED (NOT DETECTED); Babesia Microti DNA, RT-PCR NOT DETECTED (NOT DETECTED); Borrelia Miyamotoi,DNA RT-PCR NOT DETECTED (NOT DETECTED); E.Chaffeensis DNA RT-PCR NOT DETECTED (NOT DETECTED); Lyme(Borrelia ssp)DNA RT-PCR NOT DETECTED (NOT DETECTED); Source-Tick borne disease EDTA
== END 2021-03-12 20:53 | disposition home or self-care (01) ==
PROVIDERS: Emergency Medicine Emergency Medical Services; Emergency Provider Emergency Medicine; PCP Internal Medicine
DX: K04.7 Periapical abscess without sinus (principal); M25.561 Pain in right knee; R51.9 Headache, unspecified; F17.210 Nicotine dependence, cigarettes, uncomplicated; Z20.822 Contact with and (suspected) exposure to COVID-19; Z71.6 Tobacco abuse counseling; Z79.899 Other long term (current) drug therapy
CPT/HCPCS: 36415; 70450; 70487; 73562; 80053; 81001; 84484; 85025; 85652; 86140; 87086; 87088; 87186; 87635; 87798; 87801; 93005; 96365; 99284; J2543

== ENCOUNTER → 2021-03-20 09:49 | Outpatient (BNVA) | payer MEDICARE, MEDICAID, SELFPAY | PROVIDERS: PCP Internal Medicine; Visit Provider Nurse Practitioner Gerontology | DX: E11.42 Type 2 diabetes mellitus with diabetic polyneuropathy (principal); E66.01 Morbid (severe) obesity due to excess calories; S99.922A Unspecified injury of left foot, initial encounter; L84 Corns and callosities; Z68.38 Body mass index [BMI] 38.0-38.9, adult | CPT/HCPCS: 82947; 83036; 99212 ==

== ENCOUNTER 2021-03-20 10:49 | Outpatient (REF) | payer MEDICARE, MEDICAID, SELFPAY ==
[2021-03-20 14:30] LABS: Estimated Average Glucose 131 mg/dL; Hemoglobin A1c % 6.2 %
[2021-03-20 14:41] LABS: Alanine Aminotransferase 22 U/L (0-31); Albumin Level 4.2 g/dL (3.5-5.0); Alkaline Phosphatase 56 U/L (39-117); Anion Gap 22 (12-20); Aspartate Amino Transferase 23 U/L (5-31); Bilirubin Total 0.3 mg/dL (0.0-1.0); Blood Urea Nitrogen 11 mg/dL (9-16); Calcium 9.3 mg/dL (8.4-10.2); Carbon Dioxide 20 mmol/L (22-29); Chloride 99 mmol/L (96-108); Cholesterol 320 mg/dL; Estimated Glomerular Filt Rate > 60; Glucose Fasting 86 mg/dL (60-99); HDL Cholesterol 48 mg/dL; LDL Cholesterol Calculated 211 mg/dl; Potassium 5.1 mmol/L (3.3-5.1); Sodium 136 mmol/L (135-145); Total Protein 7.3 g/dL (6.5-8.0); Triglycerides 309 mg/dL
[2021-03-20 14:49] LABS: Creatinine Urine 173.98 mg/dL; Microalbum/Creatinine Ratio Ur 20.1 ug/mg cr
== END 2021-03-20 10:50 | disposition home or self-care (01) ==
LOC: HO.10HDL 10:49
PROVIDERS: Visit Provider Nurse Practitioner Gerontology
DX: E11.42 Type 2 diabetes mellitus with diabetic polyneuropathy (principal)
CPT/HCPCS: 36415; 80053; 80061; 82043; 82947; 83036; 99212

== ENCOUNTER 2021-03-23 12:37 | Outpatient (RCR) | payer MEDICARE, MEDICAID, SELFPAY | END 2021-03-30 11:40 | disposition home or self-care (01) | LOC: HO.WCC 12:37 | PROVIDERS: PCP Internal Medicine; Visit Provider Surgery | DX: E11.69 Type 2 diabetes mellitus with other specified complication (principal); M79.5 Residual foreign body in soft tissue; F17.210 Nicotine dependence, cigarettes, uncomplicated; L84 Corns and callosities; Z79.84 Long term (current) use of oral hypoglycemic drugs | CPT/HCPCS: 99212 ==

== ENCOUNTER 2021-04-26 11:12 | Outpatient (REF) | payer MEDICARE, MEDICAID, SELFPAY ==
--- NOTE | ~2021-04-26 | XR_ITS ---
EXAMINATION: XR CHEST CLINICAL INFORMATION: Cough. COMPARISON: Chest 02/21/2021 TECHNIQUE: 2 views of the chest were obtained. FINDINGS: The lungs are well-expanded with patchy opacities in both lower lobes suspicious for developing infiltrates. Heart size and pulmonary vascularity is normal. There is moderate spondylosis dorsal spine. There is lower anterior cervical fusion XR/XR chest 2V IMPRESSION: Patchy opacity in both lower lobes left greater than right suggestive of developing infiltrates.
== END 2021-04-26 11:13 | disposition home or self-care (01) ==
LOC: HO.HMGCX 11:12
PROVIDERS: PCP Internal Medicine; Visit Provider Physician Assistant
DX: R05.9 Cough, unspecified (principal)
CPT/HCPCS: 71046

== ENCOUNTER → 2021-05-01 08:27 | Outpatient (BNVA) | payer MEDICARE, MEDICAID, SELFPAY | PROVIDERS: PCP Internal Medicine; Referring Provider Internal Medicine; Visit Provider Physician Assistant Surgical ==

== ENCOUNTER → 2021-05-03 08:11 | Outpatient (BNVA) | payer MEDICARE, MEDICAID, SELFPAY | PROVIDERS: PCP Internal Medicine; Visit Provider Surgery | DX: Z13.89 Encounter for screening for other disorder (principal) | CPT/HCPCS: Q3014 ==

== ENCOUNTER 2021-05-08 10:04 | Outpatient (REF) | payer MEDICARE, MEDICAID, SELFPAY ==
--- NOTE | ~2021-05-08 | XR_ITS ---
EXAMINATION: XR CHEST CLINICAL INFORMATION: Obesity COMPARISON: Previous chest x-rays most recent 04/26/2021 TECHNIQUE: 2 views of the chest were obtained. FINDINGS: The cardiac and mediastinal contours are normal. The lungs are clear. The previously identified increased opacities at the lung bases, left greater than right, appear improved. There is no pleural effusion or pneumothorax. There are degenerative changes of the thoracic spine. There are postsurgical changes of the cervical spine. There is soft tissue calcification adjacent to the right greater tuberosity. XR/XR chest 2V IMPRESSION: Resolved basilar infiltrates 04/26/2021 exam.
--- NOTE | 2021-05-08 10:21 | ECG_ITS ---
Test Reason : E66.01 Blood Pressure : / mmHG Vent. Rate : 093 BPM Atrial Rate : 093 BPM P-R Int : 128 ms QRS Dur : 074 ms QT Int : 344 ms P-R-T Axes : 077 076 072 degrees QTc Int : 427 ms Normal sinus rhythm Normal ECG When compared with ECG of 12-MAR-2021 17:10, No significant change was found Referred By: Maximo Asencio Electronically Signed By:Miguel A Girard
[2021-05-08 10:37] LABS: MANUAL DIFF FLAG NO
[2021-05-08 10:47] LABS: Basophils Percent Auto 0.3 % (0-2); Eosinophils Absolute Auto 0.1 X10*3/uL (0.0-0.4); Eosinophils Percent Auto 0.8 % (0-4); Hematocrit 45.8 % (37.0-47.0); Hemoglobin 14.8 g/dl (12.0-16.0); Imm Gran Abs Auto 0.03 X10*3/uL (0.00-0.03); Imm Gran Pct Auto 0.3 % (0.0-0.4); Lymphocytes Absolute Auto 3.2 X10*3/uL (1.2-4.9); Lymphocytes Percent Auto 37.1 % (20-40); Mean Corpuscular HGB Conc 32.3 g/dl (31.0-35.0); Mean Corpuscular Hemoglobin 30.2 pg (27.0-33.0); Mean Corpuscular Volume 93.5 fL (80.0-98.0); Mean Platelet Volume 9.7 fL (9.4-12.3); Monocytes Absolute Auto 0.5 X10*3/uL (0.1-1.2); Monocytes Percent Auto 6.3 % (2-11); Neutrophils Absolute Auto 4.7 x10*3/uL (2.0-8.3); Neutrophils Percent Auto 55.2 % (45-73); Platelet Count 179 X10*3/uL (160-400); Red Cell Distribution Width 13.2 % (11.0-16.0); White Blood Count 8.6 X10*3/uL (4.8-10.8)
[2021-05-08 10:58] LABS: Estimated Average Glucose 131 mg/dL; Hemoglobin A1c % 6.2 %
[2021-05-08 11:15] LABS: Alanine Aminotransferase 21 U/L (0-31); Albumin Level 3.9 g/dL (3.5-5.0); Alkaline Phosphatase 50 U/L (39-117); Anion Gap 17 (12-20); Aspartate Amino Transferase 15 U/L (5-31); Bilirubin Total 0.4 mg/dL (0.0-1.0); Blood Urea Nitrogen 11 mg/dL (9-16); C Reactive Protein 0.72 mg/dL (< or = 0.50); Calcium 9.3 mg/dL (8.4-10.2); Carbon Dioxide 23 mmol/L (22-29); Chloride 101 mmol/L (96-108); Cholesterol 247 mg/dL; Estimated Glomerular Filt Rate > 60; Glucose Random 135 mg/dL (60-115); HDL Cholesterol 43 mg/dL; Iron 75 mcg/dL (30-160); LDL Cholesterol Calculated 144 mg/dl; Percent Iron Saturation 22 % (15-50); Potassium 4.4 mmol/L (3.3-5.1); Sodium 137 mmol/L (135-145); Total Iron Binding Capacity 339 mcg/dL (228-428); Total Protein 6.6 g/dL (6.5-8.0); Triglycerides 300 mg/dL; Unsaturated Iron Binding 264 ug/dL
[2021-05-08 11:30] LABS: Ferritin 116 ng/mL (10-250); Insulin 23 uU/mL (2-29)
[2021-05-08 11:32] LABS: Free T4 (Free Thyroxine) 1.18 ng/dL (0.71-1.85); Thyroid Stimulating Hormone 1.21 uIU/mL (0.32-4.0)
[2021-05-08 11:46] LABS: Folate 12.2 ng/mL (> or = 4.0); Vitamin B12 312 pg/mL (200-900)
[2021-05-08 14:24] LABS: H Pylori Breath Test Negative (Negative)
[2021-05-09 15:06] LABS: Calcium (PTHI) 9.4 mg/dL (8.6-10.4); PTHI 20 pg/mL (14-64)
[2021-05-11 15:51] LABS: Zinc 75 mcg/dL (60-130)
[2021-05-12 11:52] LABS: Vitamin B1 11 nmol/L (8-30)
[2021-05-12 15:31] LABS: Vitamin A 42 mcg/dL (38-98)
== END 2021-05-08 10:05 | disposition home or self-care (01) ==
LOC: HO.XRAY 10:04
PROVIDERS: Nurse Practitioner Gerontology; PCP Internal Medicine; Visit Provider Surgery
DX: E11.42 Type 2 diabetes mellitus with diabetic polyneuropathy (principal); E66.01 Morbid (severe) obesity due to excess calories; Z68.41 Body mass index [BMI] 40.0-44.9, adult; G47.33 Obstructive sleep apnea (adult) (pediatric); J44.9 Chronic obstructive pulmonary disease, unspecified; K21.9 Gastro-esophageal reflux disease without esophagitis; Z99.89 Dependence on other enabling machines and devices
CPT/HCPCS: 36415; 71046; 80053; 80061; 82306; 82607; 82728; 82746; 83013; 83036; 83525; 83540; 83970; 84425; 84439; 84443; 84590; 84630; 85025; 86140; 93005; 99211

== ENCOUNTER → 2021-05-15 08:43 | Outpatient (BNVA) | payer MEDICARE, MEDICAID, SELFPAY | PROVIDERS: PCP Internal Medicine; Visit Provider Physician Assistant Surgical ==

== ENCOUNTER → 2021-06-02 08:13 | Outpatient (BNVA) | payer MEDICARE, MEDICAID, SELFPAY | PROVIDERS: PCP Internal Medicine; Visit Provider Surgery | DX: Z13.89 Encounter for screening for other disorder (principal) | CPT/HCPCS: Q3014 ==

== ENCOUNTER → 2021-06-05 08:08 | Outpatient (BNVA) | payer MEDICARE, MEDICAID, SELFPAY | PROVIDERS: PCP Internal Medicine; Visit Provider Dietitian, Registered | DX: E66.9 Obesity, unspecified (principal); E11.9 Type 2 diabetes mellitus without complications | CPT/HCPCS: 97802 ==

== ENCOUNTER 2021-06-07 09:21 | Outpatient (REF) | payer MEDICARE, MEDICAID, SELFPAY ==
--- NOTE | ~2021-06-07 | FL_ITS ---
EXAMINATION: XR FLUOROSCOPY UPPER GI WITH AIR CLINICAL INFORMATION: Morbid/severe obesity due to excess calories. COMPARISON: None. TECHNIQUE: Routine upper GI air-contrast study was performed in upright and lying positions. FINDINGS: Following oral administration of thick barium and effervescent granules, there is normal propagation of bolus from the oral cavity through the pharynx and esophagus and into the stomach without any evidence of obstruction, narrowing or stricture. There is C6, C7 and T1 ventral plate and screws for C6-C7 and C7-T1 disc fusion. On placing patient supine and prone lying, the course, caliber and peristalsis of the stomach are normal. No gastroesophageal reflux or hiatal hernia seen. The mucosal pattern of the stomach, duodenal bulb and the sweep is normal. Incidental findings of L4-L5 and L5-S1 disc prosthesis with posterior hardware for fusion. FLUOROSCOPY TIME: 2.3 minutes. DOSE AREA PRODUCT: 38.581 Gy-cm2 (cobb-centimeter squared) FL/FL upper GI w air IMPRESSION: Unremarkable upper GI air-contrast study.
--- NOTE | ~2021-06-07 | US_ITS ---
EXAMINATION: US COMPLETE ABDOMEN WITH LIVER ELASTOGRAPHY CLINICAL INFORMATION: Obesity COMPARISON: Previous CT of the abdomen and pelvis September 2018 TECHNIQUE: Real-time imaging of the abdominal viscera. Noninvasive ultrasound liver fibrosis assessment is performed using [employer] ElastPQ point quantification shear wave elastography (2D-SWE) with a C5-2 MHz transducer. Multiple elastography samples are obtained. FINDINGS: PANCREAS: Normal. ABDOMINAL AORTA: The proximal, middle, and distal aortic segments are normal in caliber. INFERIOR VENA CAVA: Visualized portions are normal. LIVER: Liver echotexture is increased. The liver is normal in size and contour.. No focal lesion or intrahepatic biliary duct dilatation. The right lobe measures 16 cm in length. The left lobe measures 15 cm in length. Portal flow is normal/hepatopedal Shear wave liver elastography median stiffness is 1.5 m/s (reference: normal median stiffness is 1.3 m/s or less). IQR/median stiffness to assess sampling precision is 0.13 (reference: good quality data set is IQR/median stiffness of 0.15 or less). GALLBLADDER: Surgically removed COMMON BILE DUCT: Normal in caliber measuring 1.1 cm in diameter. RIGHT KIDNEY: Normal. No hydronephrosis. No renal calculi or focal parenchymal lesions. The kidney measures 12.3 cm in maximum dimension. LEFT KIDNEY: Normal. No hydronephrosis. No renal calculi or focal parenchymal lesions. The kidney measures 12.3 cm in maximum dimension. SPLEEN: Upper normal in size.. The spleen measures 12.8 cm in maximum dimension. FREE FLUID: None. US/US abdomen comp w elastography IMPRESSION: 1. Impression: Echogenic liver probably representing fatty infiltration. Upper normal-size spleen. Postcholecystectomy. 2. Liver elastography: Adequate liver sampling. In the absence of other known clinical signs, rules out compensated advanced chronic liver disease. REFERENCE: Society of Radiologists in Ultrasound Liver Stiffness Thresholds (2020): LIVER STIFFNESS THRESHOLDS: *Liver Stiffness equal or less than 1.3 m/s: High probability of being normal. *Liver Stiffness less than 1.7 m/s: In the absence of other known clinical signs, rules out compensated advanced chronic liver disease. *Liver Stiffness 1.7-2.1 m/s: Suggestive of compensated advanced chronic liver disease but need further test for confirmation. *Liver Stiffness over 2.1 m/s: Rules in compensated advanced chronic liver disease. *Liver Stiffness over 2.4 m/s: Suggestive of clinically significant portal hypertension. QUALITY OF DATA SET: *IQR/Median value equal or less than 0.15 implies a quality data set. *IQR/Median value over 0.15 implies a poor quality data set. SIGNIFICANT CHANGE FROM PRIOR EXAM: Significant change if liver stiffness measurement is 10% or greater from prior exam. OTHER CONSIDERATIONS: The stage of liver fibrosis may be overestimated in the setting of acute hepatitis, liver inflammation, elevated liver function tests, hepatic vascular congestion, obstructive cholestasis, non-fasting state, and infiltrative diseases such as amyloidosis and lymphoma. In some patients with NAFLD, the liver stiffness thresholds for compensated advanced chronic liver disease may be lower. In causes other than viral hepatitis and NAFLD, liver stiffness thresholds are not well established.
== END 2021-06-07 09:22 | disposition home or self-care (01) ==
LOC: HO.US 09:21
PROVIDERS: PCP Internal Medicine; Visit Provider Surgery
DX: E66.01 Morbid (severe) obesity due to excess calories (principal); Z68.41 Body mass index [BMI] 40.0-44.9, adult; E11.42 Type 2 diabetes mellitus with diabetic polyneuropathy; G47.33 Obstructive sleep apnea (adult) (pediatric); J44.9 Chronic obstructive pulmonary disease, unspecified; K21.9 Gastro-esophageal reflux disease without esophagitis; Z99.89 Dependence on other enabling machines and devices
CPT/HCPCS: 74246; 76705; 76981

== ENCOUNTER → 2021-06-27 12:30 | Outpatient (BNVA) | payer MEDICARE, MEDICAID, SELFPAY | PROVIDERS: PCP Internal Medicine; Visit Provider Counselor Mental Health | DX: F06.30 Mood disorder due to known physiological condition, unspecified (principal) | CPT/HCPCS: 90832 ==

== ENCOUNTER → 2021-07-04 08:10 | Outpatient (BNVA) | payer MEDICARE, MEDICAID, SELFPAY | PROVIDERS: PCP Internal Medicine; Referring Provider Surgery; Visit Provider Dietitian, Registered | DX: E66.9 Obesity, unspecified (principal); E11.9 Type 2 diabetes mellitus without complications; Z71.3 Dietary counseling and surveillance | CPT/HCPCS: 97803 ==

== ENCOUNTER → 2021-07-07 08:15 | Outpatient (BNVA) | payer MEDICARE, MEDICAID, SELFPAY | PROVIDERS: PCP Internal Medicine; Visit Provider Surgery | DX: Z13.89 Encounter for screening for other disorder (principal) ==

== ENCOUNTER 2021-07-12 15:21 | Emergency (ER) | payer MEDICARE, MEDICAID, SELFPAY ==
--- NOTE | 2021-07-12 | ECG_ITS ---
Test Reason : WEAKNESS Blood Pressure : / mmHG Vent. Rate : 081 BPM Atrial Rate : 081 BPM P-R Int : 130 ms QRS Dur : 084 ms QT Int : 362 ms P-R-T Axes : 077 064 058 degrees QTc Int : 420 ms Normal sinus rhythm Normal ECG When compared with ECG of 08-MAY-2021 10:34, No significant change was found Referred By: Generic ED Physician Electronically Signed By:RAFAELA YOUNG MD
[2021-07-12 15:53] VITALS: BP 112/62; PULSE 96; RESP 19; TEMP 36.6; O2SAT 94; BMI 40.6
[2021-07-12 16:32] LABS: Anion Gap 15 (12-20); Blood Urea Nitrogen 12 mg/dL (9-16); Calcium 9.4 mg/dL (8.4-10.2); Carbon Dioxide 26 mmol/L (22-29); Chloride 100 mmol/L (96-108); Estimated Glomerular Filt Rate > 60; Glucose Fasting 158 mg/dL (60-99); Potassium 4.4 mmol/L (3.3-5.1); Sodium 137 mmol/L (135-145)
[2021-07-12 19:51] LABS: Alanine Aminotransferase 16 U/L (0-31); Albumin Level 3.8 g/dL (3.5-5.0); Alkaline Phosphatase 53 U/L (39-117); Aspartate Amino Transferase 15 U/L (5-31); Bilirubin Direct < 0.2 mg/dL (0.0-0.5); Bilirubin Total 0.4 mg/dL (0.0-1.0); Total Protein 6.5 g/dL (6.5-8.0)
[2021-07-12 19:55] LABS: Appearance Urine HAZY; Color Urine YELLOW; Glucose Urine UA NEG (NEG); Leukocyte Esterase Urine TRACE (NEG); Nitrite Urine NEG (NEG); PH 5.5 (5.0-8.0); Specific Gravity - Urine >= 1.030 (1.005-1.025); UACC Culture Trigger YES; Urine Blood 1+ (NEG); Urine Ketones 15 MG/DL (NEG); Urine Protein TRACE MG/DL (NEG-TRACE)
[2021-07-12 20:01] LABS: Bacteria Urine 1+ /LPF; Squamous Epithelial Cell Urine 4+ /LPF
[2021-07-12 20:10] LABS: Influenza A Negative (Negative); Influenza B2 Negative (Negative)
[2021-07-12 20:11] LABS: COVID-19 Test Negative (Negative)
[2021-07-12 20:47] LABS: Basophils Percent Auto 0.4 % (0-2); Eosinophils Absolute Auto 0.1 X10*3/uL (0.0-0.4); Eosinophils Percent Auto 0.9 % (0-4); Hematocrit 45.8 % (37.0-47.0); Hemoglobin 14.2 g/dl (12.0-16.0); Imm Gran Abs Auto 0.04 X10*3/uL (0.00-0.03); Imm Gran Pct Auto 0.6 % (0.0-0.4); MANUAL DIFF FLAG SCAN; Monocytes Absolute Auto 0.5 X10*3/uL (0.1-1.2); Monocytes Percent Auto 7.7 % (2-11); PLT CLUMP 1; Red Cell Distribution Width 12.7 % (11.0-16.0); SCAN SMEAR FLAG 1
[2021-07-12 20:49] LABS: Lymphocytes Absolute Auto 3.4 X10*3/uL (1.2-4.9); Lymphocytes Percent Auto 48.4 % (20-40); Mean Corpuscular Hemoglobin 29.6 pg (27.0-33.0); Mean Corpuscular Volume 95.4 fL (80.0-98.0); Mean Platelet Volume 9.9 fL (9.4-12.3); Neutrophils Absolute Auto 2.9 x10*3/uL (2.0-8.3)
--- NOTE | 2021-07-12 20:54 | ED.GENADULT ---
HPI - General Adult General Chief complaint: General Medical Stated complaint: hot flashes/body aches/high blood sugar Time Seen by Provider: 07/12/21 15:24 Source: patient Mode of arrival: ambulatory History of Present Illness HPI narrative: 61-year-old female with a past medical history of ADHD, COPD, depression, diabetes, HLD, GERD, obesity, TEA on CPAP, on Suboxone, presenting to the ED complaining of low back pain radiating down bilateral LE, hot flashes, chills, dysuria, generalized fatigue x several weeks. Also reports subjective fever & intermittent urinary incontinence at night. Denies CP, SOB, abdominal pain, nausea/vomiting, diarrhea, urinary retention Onset (ago): week(s) Related Data Home Medications Medication Instructions Recorded Confirmed buprenorphine 8 mg-naloxone 2 mg 1 film BUCCAL DAILY 02/11/20 06/13/21 sublingual film (Suboxone) risperidone 4 mg tablet 4 mg PO BEDTIME 02/11/20 06/13/21 trazodone 100 mg tablet 100 mg PO BEDTIME 02/11/20 06/13/21 dextroamphetamine-amphetamine 30 1 tab PO BID 02/18/20 06/13/21 mg tablet divalproex 500 mg tablet,extended 1 tab PO TID 03/12/21 06/13/21 release 24 hr Previous Rx's Medication Instructions Recorded blood-glucose meter (FreeStyle #1 ea 02/23/20 [place] Lite) lancets 28 gauge (FreeStyle #100 ea 02/23/20 Lancets) walker with seat #1 ea 08/11/20 Shower Chair #1 ea 08/18/20 Symbicort 160 mcg-4.5 2 puff PO BID #10.2 g NS 12/28/20 mcg/actuation HFA aerosol inhaler (budesonide-formoterol) blood-glucose meter (FreeStyle #1 ea 03/20/21 Lite Meter) blood sugar diagnostic (FreeStyle #100 ea 03/22/21 Lite Strips) atorvastatin 10 mg tablet 10 mg PO BEDTIME #30 tab 05/09/21 nicotine 21 mg/24 hr daily 1 patch TRANSDERMAL DAILY #28 ea 05/09/21 transdermal patch cholecalciferol (vitamin D3) 125 125 mcg PO DAILY #30 cap 05/11/21 mcg (5,000 unit) capsule mecobalamin (vitamin B12) 1,000 1,000 mcg SUBLINGUAL DAILY #30 tab 05/11/21 mcg disintegrating tablet,sublingual metformin 1,000 mg tablet 1,000 mg PO BID 30 Days #60 tab 05/16/21 gabapentin 800 mg tablet 800 mg PO TID #90 tab 05/30/21 azithromycin 250 mg tablet See Rx Instructions PO .COMPLEX #6 06/13/21 tab diclofenac potassium 50 mg tablet 50 mg PO BID PRN #30 tab 06/13/21 acetaminophen 500 mg tablet 500 mg PO Q6H PRN #20 tab 07/12/21 (Tylenol Extra Strength) albuterol sulfate 90 mcg/actuation 2 puff INHALATION QID PRN #8.5 g 07/12/21 aerosol inhaler (Ventolin HFA) cefuroxime axetil 250 mg tablet 250 mg PO BID 7 Days #14 tab 07/12/21 cyclobenzaprine 5 mg tablet 5 mg PO Q8H PRN 5 Days #14 tab 07/12/21 lidocaine 5 % topical patch 1 patch TOPICAL DAILY PRN #30 ea 07/12/21 (Lidoderm) MDD remove after 12 hours naproxen 500 mg tablet 500 mg PO BID PRN 10 Days #20 tab 07/12/21 Allergies Allergy/AdvReac Type Severity Reaction Status Date / Time bupropion [From WELLBUTRIN] Allergy Intermediate ITCHING Verified 06/13/21 13:50 influenza virus vaccine, Allergy Unknown RASH Verified 06/13/21 13:50 specific [FLU VACCINE] latex Allergy Unknown rash Verified 06/13/21 13:50 Sulfa (Sulfonamide Allergy Unknown UNKNOWN, Verified 06/13/21 13:50 Antibiotics) itch, itching Review of Systems Review of Systems: Constitutional: No Fever, + Chills, No Night Sweats, + Fatigue, + Malaise ENT/Mouth: No Ear Pain, No Nasal Congestion, No sore throat, No Rhinorrhea, No Swallowing Difficulty Eyes: No Eye Pain, No Swelling, No Redness, No Discharge, No Vision Changes Cardiovascular: No Chest Pain, No SOB, No Edema, No Palpitations Respiratory: No Cough, No Sputum, No Dyspnea Gastrointestinal: No Nausea, No Vomiting, No Diarrhea, No Constipation, No Abdominal pain Genitourinary: No irregular bleeding, + Dysuria, No Urinary Frequency, No Hematuria, +intermittent Urinary Incontinence (only at night), no urinary retention, No Urgency, No Flank Pain, No Urinary Flow Changes Musculoskeletal: No joint pain, No Myalgias, No Joint Swelling Skin: No Skin Lesions, No rash Neuro: +generalized Weakness, No Numbness, No Paresthesias, No Dizziness, No Headache Yes all other systems are reviewed and are negative Neurologic: Denies Abnormal speech present and Denies Sensory deficit (Neuro) [facility] Past Medical History Attestation statement: The following information was validated with the patient. Medical History ADHD Cigarette smoker motivated to quit COPD (chronic obstructive pulmonary disease) Depression Diabetes mellitus with hyperglycemia, without long-term current use of insulin Diabetic neuropathy DM2 (diabetes mellitus, type 2) Dyslipidemia Dysuria GERD (gastroesophageal reflux disease) History of pneumonia Insomnia Left shoulder pain Lumbar degenerative disc disease Mixed incontinence urge and stress Nausea Obesity Obesity due to excess calories Opiate addiction TEA on CPAP Patchy loss of hair Smoker unmotivated to quit Type 2 diabetes mellitus without complication, with no history of insulin use Surgical History H/O colonoscopy H/O tubal ligation History of lumbar fusion History of lumbar spinal fusion History of partial hysterectomy Hx of cholecystectomy Family History Family History Father Aneurysm Social History Social History Household Members: Children Household Members Other:: daughter Housing: House Alcohol intake: never Patient Tobacco Use Status: Current everyday Tobacco user Cigarette Packs Per Day: 0.5 Cigarettes Per Day: 10 e-Cigarette/Vaping Use: Never Used Second Hand Smoke Exposure: Yes Advance Directives: No Advance Directives Information Provided: No Current occupational status: unemployed Cognitive needs: Yes (walker) Hearing needs: No Vision needs: Yes (glasses) Physical Exam ED Vital Signs: Vital Signs - 24 hr 07/12/21 15:53 Temperature 98 F Pulse Rate 96 Respiratory Rate 19 Blood Pressure 112/62 Pulse Oximetry 94 BMI result Body Mass Index 40.6 Const General: cooperative, healthy appearing, no acute distress, alert, awake and Physically active Orientation/consciousness: patient oriented x3 Limitations: no limitations HENMT Head: Yes normal to inspection and Yes atraumatic Ears: hearing grossly normal bilaterally General nose exam: Normal external nose present Face and sinus: Yes normal facial exam Eyes General: appearance normal, both eyes and all related structures EOM: EOMs intact bilaterally Neck Other: No midline cervical spinous tenderness Neck: Yes normal visual inspection Resp Effort & Inspection: normal respiratory effort and no respiratory distress Auscultation: clear to auscultation bilaterally Cardio Rate: regular rate Heart sounds: S1 normal heart sound present and S2 normal heart sound present GI Inspection: Yes normal to inspection Palpation (GI): Soft to palpation, nontender, no guarding and not rigid General: Yes no CVA tenderness Back/Spine/Pelvis Other: No midline thoracic/lumbar spinous tenderness or paraspinal tenderness. + bilateral lower lumbar/buttock tenderness to palpation Back: no CVA tenderness Skin Rashes: no rashes Wounds: no wounds Neuro Other: Strength intact throughout, ambulating with steady gait, no saddle anesthesia General: patient oriented x3, gait normal, tone normal and moves all extremities Cognition (Neuro): normal cognition Speech: No Abnormal speech present Gait exam (Neuro): Normal gait present Motor exam (neuro): 5/5 motor strength present throughout Sensory Exam: No Sensory deficit (Neuro) Extrem General: Yes normal to inspection Course Course Course Narrative: -2054--WBC and platelet count pending, other labs unremarkable > patient would like to leave prior to remaining results. -COVID-19/influenza negative, UA infected will DC with Ceftin Discussed worrisome signs and symptoms and strict return precautions and need close follow-up with PCP, she verbalized understanding of like to be discharged at once prior to all results Medical Decision Making MDM Narrative Medical decision making narrative: 61-year-old female with a past medical history of ADHD, COPD, depression, diabetes, HLD, GERD, obesity, TEA on CPAP, on Suboxone, presenting to the ED complaining of low back pain radiating down bilateral LE, hot flashes, chills, dysuria, generalized fatigue x several weeks. On exam vital signs stable, NAD/nontoxic, no midline spinous tenderness throughout, no saddle anesthesia, ambulating with steady gait. Lungs CTA. No focal deficits. Concern for viral syndrome vs metabolic or infectious etiologies vs lumbar radiculopathy/sciatic nerve pain. Unlikely cauda equina/cord compression or epidural abscess Plan: EKG, Labs, UA, influenza/COVID 19 testing Lab Data Result diagrams: 07/12/21 20:41 07/12/21 16:12 Labs: Lab Results 07/12/21 07/12/21 07/12/21 Range/Units 16:12 19:45 19:45 RBC (4.20-5.50) X10*6/uL Hgb (12.0-16.0) g/dl Hct (37.0-47.0) % MCV (80.0-98.0) fL MCH (27.0-33.0) pg MCHC (31.0-35.0) g/dl RDW (11.0-16.0) % MPV (9.4-12.3) fL Immature Gran % (Auto) (0.0-0.4) % Neut % (Auto) (45-73) % Lymph % (Auto) (20-40) % Andrew % (Auto) (2-11) % Eos % (Auto) (0-4) % Baso % (Auto) (0-2) % Lymph # (Auto) (1.2-4.9) X10*3/uL Andrew # (Auto) (0.1-1.2) X10*3/uL Eos # (Auto) (0.0-0.4) X10*3/uL Baso # (Auto) (0.0-0.2) X10*3/uL Abs Immat Gran (auto) (0.00-0.03) X10*3/uL Absolute Neuts (auto) (2.0-8.3) x10*3/uL Absolute Nucleated RBC (0.0-0.012) X10*3/uL Nucleated RBC % (auto) (0.0-0.2) /100WBC Sodium 137 (135-145) mmol/L Potassium 4.4 (3.3-5.1) mmol/L Chloride 100 (96-108) mmol/L Carbon Dioxide 26 (22-29) mmol/L Anion Gap 15 (12-20) BUN 12 (9-16) mg/dL Creatinine 0.71 (0.5-1.4) mg/dL Estim Creat Clear Calc 102.0 Estimated GFR > 60 Fasting Glucose 158 H (60-99) mg/dL Calcium 9.4 (8.4-10.2) mg/dL Magnesium 2.0 (1.6-2.6) mg/dL Total Bilirubin 0.4 (0.0-1.0) mg/dL Direct Bilirubin < 0.2 (0.0-0.5) mg/dL AST 15 (5-31) U/L ALT 16 (0-31) U/L Alkaline Phosphatase 53 (39-117) U/L Total Protein 6.5 (6.5-8.0) g/dL Albumin 3.8 (3.5-5.0) g/dL Urine Color Urine Appearance Urine pH (5.0-8.0) Ur Specific Crocker (1.005-1.025) Urine Protein (NEG-TRACE) MG/DL Urine Glucose (UA) (NEG) MG/DL Urine Ketones (NEG) MG/DL Urine Blood (NEG) Urine Nitrite (NEG) Ur Leukocyte Esterase (NEG) Urine RBC (0) /HPF Urine WBC (0-4) /HPF Ur Squamous Epith Cells /LPF Urine Bacteria /LPF COVID-19 ([facility]) Negative (Negative) COVID-19 Clin Com See Note Influenza Type A ([facility]) Negative (Negative) Influenza Type B ([facility]OLOME) Negative (Negative) Influenza A & B Note See Note 07/12/21 07/12/21 Range/Units 19:45 20:41 RBC 4.80 (4.20-5.50) X10*6/uL Hgb 14.2 (12.0-16.0) g/dl Hct 45.8 (37.0-47.0) % MCV 95.4 (80.0-98.0) fL MCH 29.6 (27.0-33.0) pg MCHC 31.0 (31.0-35.0) g/dl RDW 12.7 (11.0-16.0) % MPV 9.9 (9.4-12.3) fL Immature Gran % (Auto) 0.6 H (0.0-0.4) % Neut % (Auto) 42.0 L (45-73) % Lymph % (Auto) 48.4 H (20-40) % Andrew % (Auto) 7.7 (2-11) % Eos % (Auto) 0.9 (0-4) % Baso % (Auto) 0.4 (0-2) % Lymph # (Auto) 3.4 (1.2-4.9) X10*3/uL Andrew # (Auto) 0.5 (0.1-1.2) X10*3/uL Eos # (Auto) 0.1 (0.0-0.4) X10*3/uL Baso # (Auto) 0.0 (0.0-0.2) X10*3/uL Abs Immat Gran (auto) 0.04 H (0.00-0.03) X10*3/uL Absolute Neuts (auto) 2.9 (2.0-8.3) x10*3/uL Absolute Nucleated RBC 0.000 (0.0-0.012) X10*3/uL Nucleated RBC % (auto) 0.0 (0.0-0.2) /100WBC Sodium (135-145) mmol/L Potassium (3.3-5.1) mmol/L Chloride (96-108) mmol/L Carbon Dioxide (22-29) mmol/L Anion Gap (12-20) BUN (9-16) mg/dL Creatinine (0.5-1.4) mg/dL Estim Creat Clear Calc Estimated GFR Fasting Glucose (60-99) mg/dL Calcium (8.4-10.2) mg/dL Magnesium (1.6-2.6) mg/dL Total Bilirubin (0.0-1.0) mg/dL Direct Bilirubin (0.0-0.5) mg/dL AST (5-31) U/L ALT (0-31) U/L Alkaline Phosphatase (39-117) U/L Total Protein (6.5-8.0) g/dL Albumin (3.5-5.0) g/dL Urine Color YELLOW Urine Appearance HAZY Urine pH 5.5 (5.0-8.0) Ur Specific Crocker >= 1.030 H (1.005-1.025) Urine Protein TRACE (NEG-TRACE) MG/DL Urine Glucose (UA) NEG (NEG) MG/DL Urine Ketones 15 (NEG) MG/DL Urine Blood 1+ H (NEG) Urine Nitrite NEG (NEG) Ur Leukocyte Esterase TRACE H (NEG) Urine RBC 5-9 H (0) /HPF Urine WBC 10-14 H (0-4) /HPF Ur Squamous Epith Cells 4+ /LPF Urine Bacteria 1+ /LPF COVID-19 ([facility]) (Negative) COVID-19 Clin Com Influenza Type A ([facility]) (Negative) Influenza Type B ([facility]) (Negative) Influenza A & B Note ECG Data Attestation: I personally reviewed and interpreted this ECG as follows: Prior ECG tracings: available for review Interpretation: EKG normal sinus rhythm at a rate of 81. QRS 84. QTC 420. No STEMI. Unchanged from prior EKGs Discharge Plan Discharge Clinical Impression: UTI (urinary tract infection), Lumbar radiculopathy Patient Disposition: Home, Self-Care Instructions: Urinary Tract Infection in Women (DC), Back Pain (ED) Additional Instructions: You have urinary tract infection, Ceftin is an antibiotic please take as prescribed. Your blood work was reassuring/unremarkable Flexeril is a muscle relaxer, take at night as it makes you drowsy, do not drive, drink alcohol, or operate machinery while taking it Naproxen as an anti-inflammatory / pain medication, take with food Lidoderm patches are numbing patches, apply to painful area In addition take Tylenol at home If symptoms persist or worsen, pain becomes unbearable, you developed urinary retention or incontinence, or weakness return to the ED Prescriptions: New cyclobenzaprine 5 mg tablet 5 mg PO Q8H PRN (Reason: pain (scale score 7-10)) 5 Days Qty: 14 0RF lidocaine [Lidoderm] 5 % adhesive patch,medicated 1 patch topical DAILY MDD remove after 12 hours PRN (Reason: pain) Qty: 30 0RF Rx Instructions: leave on most painful area for up to 12 hrs naproxen 500 mg tablet 500 mg PO BID PRN (Reason: pain) 10 Days Qty: 20 0RF acetaminophen [Tylenol Extra Strength] 500 mg tablet 500 mg PO Q6H PRN (Reason: pain or fever) Qty: 20 0RF cefuroxime axetil 250 mg tablet 250 mg PO BID 7 Days Qty: 14 0RF No Action (DME) blood-glucose meter [FreeStyle [place] Lite] Kit See Rx Instructions .ROUTE .MEDSUPPLY Qty: 1 0RF Rx Instructions: check blood sugar twice a day before meals and keep a log of the readings (DME) lancets [FreeStyle Lancets] 28 gauge misc See Rx Instructions .ROUTE .MEDSUPPLY Qty: 100 5RF Rx Instructions: used to check (DME) walker with seat See Rx Instructions .Route .MEDSUPPLY Qty: 1 0RF Rx Instructions: As directed (DME) Shower Chair Misc See Rx Instructions .ROUTE .MEDSUPPLY Qty: 1 0RF Rx Instructions: As directed budesonide-formoterol [Symbicort] 160-4.5 mcg/actuation HFA aerosol inhaler 2 puff PO BID Qty: 10.2 1RF (DME) FreeStyle Lite Strips Strip See Rx Instructions .ROUTE .MEDSUPPLY Qty: 100 5RF Rx Instructions: check blood sugar twice a day atorvastatin 10 mg tablet 10 mg PO BEDTIME Qty: 30 11RF cholecalciferol (vitamin D3) 125 mcg (5,000 unit) capsule 125 mcg PO DAILY Qty: 30 2RF mecobalamin (vitamin B12) 1,000 mcg tablet,disintegrating 1,000 mcg sublingual DAILY Qty: 30 2RF Rx Instructions: place tablet under tongue and allow to dissolve for at least30 secs before swallowing metformin 1,000 mg tablet 1,000 mg PO BID 30 Days Qty: 60 4RF Rx Instructions: Needs labs for more refills gabapentin 800 mg tablet 800 mg PO TID Qty: 90 2RF albuterol sulfate [Ventolin HFA] 90 mcg/actuation HFA aerosol inhaler 2 puff inhalation QID PRN (Reason: shortness of breath or wheezing) Qty: 8.5 1RF divalproex 500 mg tablet extended release 24 hr 1 tab PO TID 0RF risperidone 4 mg tablet 4 mg PO BEDTIME 0RF trazodone 100 mg tablet 100 mg PO BEDTIME 0RF buprenorphine-naloxone [Suboxone] 8-2 mg film 1 film buccal DAILY 0RF dextroamphetamine-amphetamine 30 mg tablet 1 tab PO BID 0RF azithromycin 250 mg tablet See Rx Instructions PO .COMPLEX Qty: 6 0RF Rx Instructions: For 250 mg dose pack: take 500 mg today (day 1), then 250 mg for 4 days (days 2-5) PO diclofenac potassium 50 mg tablet 50 mg PO BID PRN (Reason: pain) Qty: 30 0RF nicotine 21 mg/24 hr patch 24 hour 1 patch transdermal DAILY Qty: 28 0RF (DME) blood-glucose meter [FreeStyle Lite Meter] Kit See Rx Instructions .ROUTE .MEDSUPPLY Qty: 1 0RF Rx Instructions: As directed twice a day Referrals: Melissa Topete MD [Primary Care Provider] - 2 days
[2021-07-12 21:05] LABS: Platelet Count 142 X10*3/uL (160-400)
[2021-07-12 21:06] LABS: SLIDE REVIEW VERIFIED
== END 2021-07-12 21:26 | disposition home or self-care (01) ==
PROVIDERS: Physician Assistant; Emergency Provider Internal Medicine; PCP Internal Medicine
DX: M54.16 Radiculopathy, lumbar region (principal); N39.0 Urinary tract infection, site not specified; M79.10 Myalgia, unspecified site; N95.1 Menopausal and female climacteric states; J44.9 Chronic obstructive pulmonary disease, unspecified; F17.210 Nicotine dependence, cigarettes, uncomplicated; Z71.6 Tobacco abuse counseling; Z20.822 Contact with and (suspected) exposure to COVID-19; Z79.899 Other long term (current) drug therapy
CPT/HCPCS: 36415; 80048; 80076; 81001; 83735; 85025; 87086; 87502; 87635; 93005; 99283; 99284

== ENCOUNTER → 2021-07-19 08:12 | Outpatient (BNVA) | payer MEDICARE, MEDICAID, SELFPAY | PROVIDERS: PCP Internal Medicine; Referring Provider Surgery; Visit Provider Dietitian, Registered | DX: E66.9 Obesity, unspecified (principal); E11.9 Type 2 diabetes mellitus without complications | CPT/HCPCS: 97803 ==

== ENCOUNTER 2021-07-28 16:16 | Emergency (ER) | payer MEDICARE, MEDICAID, SELFPAY ==
--- NOTE | ~2021-07-28 | XR_ITS ---
EXAMINATION: XR CHEST CLINICAL INFORMATION: Dyspnea COMPARISON: May 08, 2021 TECHNIQUE: AP portable view of the chest was obtained. FINDINGS: There is no evidence of acute parenchymal disease, pneumothorax, or pleural effusion. Heart normal size. No evidence of pulmonary edema. Patient is status post previous cervical spine surgery. There is calcific tendinitis of the right shoulder. XR/XR chest 1V IMPRESSION: No significant acute parenchymal disease.
--- NOTE | ~2021-07-28 | US_ITS ---
EXAMINATION: US VENOUS ULTRASOUND WITH DOPPLER LOWER EXTREMITY, BILATERAL CLINICAL INFORMATION: Bilateral lower extremity swelling and pain. COMPARISON: 10/17/2019 TECHNIQUE: Ultrasound of the deep veins is performed from the hip to the calf with compression sonography and color and pulse Doppler assessment. Spectral analysis with color-flow imaging is performed. FINDINGS: RIGHT: There is normal venous compression and respiratory variation and augmented flow. The visualized common femoral vein, superficial femoral vein, profunda femoral vein, popliteal vein, and the trifurcation region shows no evidence of deep venous thrombosis. There is no significant popliteal fossa cyst. LEFT: There is normal venous compression and respiratory variation and augmented flow. The visualized common femoral vein, superficial femoral vein, profunda femoral vein, popliteal vein, and the trifurcation region shows no evidence of deep venous thrombosis. There is no significant popliteal fossa cyst. US/US venous duplex LE BI IMPRESSION: No DVT demonstrated in the bilateral lower extremity.
--- NOTE | ~2021-07-28 | CT_ITS ---
EXAMINATION: CT LUMBAR SPINE WITHOUT CONTRAST CLINICAL INFORMATION: Pain COMPARISON: Lumbar spine radiographs TECHNIQUE: Multidetector helical imaging of the lumbar spine was obtained without contrast. Coronal and sagittal reformats were performed at an independent workstation. This CT examination was performed using dose optimization techniques as appropriate, variously including the following: *Automated exposure control *Adjustment of mA and/or kV according to patient size (this includes techniques or standardized protocols for targeted exams where dose is matched to indication/reason for exam; i.e. extremities or head) *Use of iterative reconstruction technique DLP; 956 mGy-cm FINDINGS: There are 5 nonrib-bearing lumbar-type vertebral bodies. No acute fracture. There is reversal of the usual lumbar lordosis. Status post L4-L5 posterior spinal fusion with interbody disc spacers across L4-L5 and L5-S1. No evidence of hardware fracture or complication. Susceptibility artifact from fusion hardware somewhat limits evaluation at these levels. Moderate multilevel degenerative disc disease at additional levels with Schmorl's nodes and vacuum disc phenomenon with multilevel facet arthropathy. Streak artifact obscures evaluation of the canal at L4-L5 and L5-S1. At L2-L3 there is a small posterior disc osteophyte complex resulting in mild canal stenosis. No severe canal stenosis at the visualized levels. Facet arthropathy results in mild neural foraminal narrowing on the left at L5-S1. At L4-L5 the right L4 exiting nerve root appears to contact a small broad-based disc bulge. No prevertebral soft tissue swelling. Limited views of the abdomen are remarkable for a circumaortic left renal vein. Surgical clips are seen in the left pelvis. CT/CT lumbar spine wo con IMPRESSION: Status post L4-L5 posterior spinal fusion with interbody disc spacers across L4-L5 and L5-S1. No evidence of hardware fracture or complication. Moderate multilevel degenerative disc disease with multilevel facet arthropathy, result of the usual cervical spine lordosis and mild canal stenosis at L2-L3. No severe canal stenosis appreciated however the canal is obscured by streak artifact at L4-L5 and L5-S1 secondary to hardware. At L4-L5 the right L4 exiting nerve root appears to contact a small broad-based disc bulge. Facet arthropathy results in mild neural foraminal narrowing on the left at L5-S1.
[2021-07-28 16:50] VITALS: BP 124/85; PULSE 93; RESP 24; TEMP 37; O2SAT 95; BMI 43.4
--- NOTE | 2021-07-28 16:51 | ECG_ITS ---
Test Reason : LEG PAIN Blood Pressure : / mmHG Vent. Rate : 074 BPM Atrial Rate : 074 BPM P-R Int : 142 ms QRS Dur : 076 ms QT Int : 372 ms P-R-T Axes : 068 071 067 degrees QTc Int : 412 ms Normal sinus rhythm Normal ECG When compared with ECG of 12-JUL-2021 15:55, No significant change was found Referred By: Generic ED Physician Electronically Signed By:RAFAELA YOUNG MD
[2021-07-28 17:12] LABS: Appearance Urine HAZY; Color Urine YELLOW; Glucose Urine UA NEG (NEG); Leukocyte Esterase Urine 1+ (NEG); Nitrite Urine NEG (NEG); PH 6.5 (5.0-8.0); Specific Gravity - Urine 1.015 (1.005-1.025); UACC Culture Trigger YES; Urine Blood NEG (NEG); Urine Ketones NEG (NEG); Urine Protein NEG (NEG-TRACE)
[2021-07-28 18:09] LABS: Basophils Percent Auto 0.3 % (0-2); Eosinophils Absolute Auto 0.1 X10*3/uL (0.0-0.4); Eosinophils Percent Auto 0.7 % (0-4); Hematocrit 44.2 % (37.0-47.0); Hemoglobin 14.3 g/dl (12.0-16.0); Imm Gran Abs Auto 0.04 X10*3/uL (0.00-0.03); Imm Gran Pct Auto 0.4 % (0.0-0.4); Lymphocytes Absolute Auto 3.2 X10*3/uL (1.2-4.9); Lymphocytes Percent Auto 34.9 % (20-40); MANUAL DIFF FLAG NO; Mean Corpuscular HGB Conc 32.4 g/dl (31.0-35.0); Mean Corpuscular Hemoglobin 29.8 pg (27.0-33.0); Mean Corpuscular Volume 92.1 fL (80.0-98.0); Mean Platelet Volume 9.6 fL (9.4-12.3); Monocytes Absolute Auto 0.7 X10*3/uL (0.1-1.2); Monocytes Percent Auto 7.6 % (2-11); Neutrophils Absolute Auto 5.1 x10*3/uL (2.0-8.3); Neutrophils Percent Auto 56.1 % (45-73); Platelet Count 156 X10*3/uL (160-400); Red Cell Distribution Width 12.7 % (11.0-16.0); White Blood Count 9.1 X10*3/uL (4.8-10.8)
[2021-07-28 18:14] LABS: RBC Urine 0-2 /HPF (0); Renal Epithelial Cells Urine 1+ /LPF; UACC CULT YES
[2021-07-28 18:23] LABS: Anion Gap 15 (12-20); Blood Urea Nitrogen 14 mg/dL (9-16); Calcium 9.2 mg/dL (8.4-10.2); Carbon Dioxide 29 mmol/L (22-29); Chloride 98 mmol/L (96-108); Creatinine Clr Calc Pharmacy 95.9; Estimated Glomerular Filt Rate > 60; Glucose Random 148 mg/dL (60-115); Potassium 4.6 mmol/L (3.3-5.1); Sodium 137 mmol/L (135-145)
[2021-07-28 18:30] LABS: Troponin-I High Sensitivity < 3.5 ng/L (<3.5-17.0)
--- NOTE | 2021-07-28 21:02 | ED_ITS ---
HPI - General Adult General Chief complaint: General Medical Stated complaint: leg pain Time Seen by Provider: 07/28/21 21:00 Source: patient Mode of arrival: ambulatory Limitations: no limitations History of Present Illness MD complaint: LE edema, back pain, feels like she can't walk Onset (ago): week(s) (1) Location: back, left, right and lower extremity Radiation: non-radiation Severity: moderate Quality: stabbing, dull and constant Pain Consistency: constant Relieving factors: none Exacerbating factors: movement Associated symptoms: other (frequent urination - told she had UTI 2 weeks ago sent home with abx did not finish course stopped taking after a few days because the burning went away) Treatments prior to arrival: other (take suboxone) Related Data Home Medications Medication Instructions Recorded Confirmed buprenorphine 8 mg-naloxone 2 mg 1 film BUCCAL DAILY 02/11/20 06/13/21 sublingual film (Suboxone) risperidone 4 mg tablet 4 mg PO BEDTIME 02/11/20 06/13/21 trazodone 100 mg tablet 100 mg PO BEDTIME 02/11/20 06/13/21 dextroamphetamine-amphetamine 30 1 tab PO BID 02/18/20 06/13/21 mg tablet divalproex 500 mg tablet,extended 1 tab PO TID 03/12/21 06/13/21 release 24 hr Previous Rx's Medication Instructions Recorded blood-glucose meter (FreeStyle #1 ea 02/23/20 Hiland Lite) lancets 28 gauge (FreeStyle #100 ea 02/23/20 Lancets) walker with seat #1 ea 08/11/20 Shower Chair #1 ea 08/18/20 Symbicort 160 mcg-4.5 2 puff PO BID #10.2 g NS 12/28/20 mcg/actuation HFA aerosol inhaler (budesonide-formoterol) blood-glucose meter (FreeStyle #1 ea 03/20/21 Lite Meter) blood sugar diagnostic (FreeStyle #100 ea 03/22/21 Lite Strips) atorvastatin 10 mg tablet 10 mg PO BEDTIME #30 tab 05/09/21 nicotine 21 mg/24 hr daily 1 patch TRANSDERMAL DAILY #28 ea 05/09/21 transdermal patch cholecalciferol (vitamin D3) 125 125 mcg PO DAILY #30 cap 05/11/21 mcg (5,000 unit) capsule mecobalamin (vitamin B12) 1,000 1,000 mcg SUBLINGUAL DAILY #30 tab 05/11/21 mcg disintegrating tablet,sublingual metformin 1,000 mg tablet 1,000 mg PO BID 30 Days #60 tab 05/16/21 gabapentin 800 mg tablet 800 mg PO TID #90 tab 05/30/21 azithromycin 250 mg tablet See Rx Instructions PO .COMPLEX #6 06/13/21 tab diclofenac potassium 50 mg tablet 50 mg PO BID PRN #30 tab 06/13/21 acetaminophen 500 mg tablet 500 mg PO Q6H PRN #20 tab 07/12/21 (Tylenol Extra Strength) albuterol sulfate 90 mcg/actuation 2 puff INHALATION QID PRN #8.5 g 07/12/21 aerosol inhaler (Ventolin HFA) cefuroxime axetil 250 mg tablet 250 mg PO BID 7 Days #14 tab 07/12/21 cyclobenzaprine 5 mg tablet 5 mg PO Q8H PRN 5 Days #14 tab 07/12/21 lidocaine 5 % topical patch 1 patch TOPICAL DAILY PRN #30 ea 07/12/21 (Lidoderm) MDD remove after 12 hours naproxen 500 mg tablet 500 mg PO BID PRN 10 Days #20 tab 07/12/21 diazepam 5 mg tablet (Valium) 5 mg PO TID PRN #8 tab 07/28/21 furosemide 20 mg tablet (Lasix) 20 mg PO DAILY #3 tab 07/28/21 lidocaine 4 % topical patch 1 patch TOPICAL DAILY PRN #10 ea 07/28/21 nitrofurantoin 100 mg PO BID 7 Days #14 cap 07/28/21 monohydrate/macrocrystals 100 mg capsule (Macrobid) Allergies Allergy/AdvReac Type Severity Reaction Status Date / Time bupropion [From WELLBUTRIN] Allergy Intermediate ITCHING Verified 07/28/21 16:54 influenza virus vaccine, Allergy Unknown RASH Verified 07/28/21 16:54 specific [FLU VACCINE] latex Allergy Unknown rash Verified 07/28/21 16:54 Sulfa (Sulfonamide Allergy Unknown UNKNOWN, Verified 07/28/21 16:54 Antibiotics) itch, itching Review of Systems Review of Systems: Constitutional : No Weight loss, No Fever, No Chills, ENT/Mouth : No Hearing loss, No Ear Pain, No Nasal Congestion, No Sinus Pain, No Hoarseness, No sore throat, No Rhinorrhea, No Swallowing Difficulty Cardiovascular : No Chest Pain, No SOB, pos lower ext edema Respiratory : No Cough, No Dyspnea Gastrointestinal : No Nausea, No Vomiting, No Diarrhea, No abdominal Pain, No Hematochezia, No Melena Genitourinary : No Dysuria, pos Urinary Frequency, No Hematuria, No Urinary Incontinence, Musculoskeletal : positive back pain Skin : No Skin Lesions, No rash Neuro : No Weakness, No Numbness, No Paresthesias, no loss of bowel or bladder incontinence, no saddle anesthesia All other systems reviewed and are negative [facility] Past Medical History Attestation statement: The following information was validated with the patient. Medical History ADHD Cigarette smoker motivated to quit COPD (chronic obstructive pulmonary disease) Depression Diabetes mellitus with hyperglycemia, without long-term current use of insulin Diabetic neuropathy DM2 (diabetes mellitus, type 2) Dyslipidemia Dysuria GERD (gastroesophageal reflux disease) History of pneumonia Insomnia Left shoulder pain Lumbar degenerative disc disease Mixed incontinence urge and stress Nausea Obesity Obesity due to excess calories Opiate addiction TEA on CPAP Patchy loss of hair Smoker unmotivated to quit Type 2 diabetes mellitus without complication, with no history of insulin use Surgical History H/O colonoscopy H/O tubal ligation History of lumbar fusion History of lumbar spinal fusion History of partial hysterectomy Hx of cholecystectomy Family History Family History Father Aneurysm Social History Social History Household Members: Children Household Members Other:: daughter Housing: House Alcohol intake: never Patient Tobacco Use Status: Current everyday Tobacco user Cigarette Packs Per Day: 0.5 Cigarettes Per Day: 10 e-Cigarette/Vaping Use: Never Used Second Hand Smoke Exposure: Yes Advance Directives: No Advance Directives Information Provided: No Current occupational status: unemployed Cognitive needs: Yes (walker) Hearing needs: No Vision needs: Yes (glasses) Physical Exam ED Vital Signs: Vital Signs - 24 hr 07/28/21 16:50 07/28/21 22:28 Temperature 98.6 F Pulse Rate 93 84 Respiratory Rate 24 H 16 Blood Pressure 124/85 108/66 Pulse Oximetry 95 96 BMI result Body Mass Index 43.4 Appearance: Alert. Oriented X3. No acute distress. Anxious seems somewhat agitated Eyes: Pupils equal, round and reactive to light. ENT: Pharynx normal. Neck: Normal inspection. Neck supple. CVS: Normal heart rate and rhythm. Pulses normal. Respiratory: No respiratory distress. Breath sounds normal. Abdomen: Soft and nontender. Rectal: normal rectal tone, sensation inner thigh Back: ttp along lower lumbar spine Skin: Skin warm and dry. Normal skin color. Normal skin turgor. Extremities: 1+ pitting lower extremity edema along ankles. No calf ttp Neuro: Oriented X 3. No motor deficit. No sensory deficit. L5 5/5 bilaterally 2+ DTR in achilles no clonus present Course Course Course Narrative: able to go to and from bathroom with her walker without issue negative workup at this time no hardware failure Medical Decision Making [facility] Narrative Medical decision making narrative: 61 yo female with hx of chronic pain and recovery on suboxone, depression, prior back pain with surgeries, DM, UTI recently untreated, HLD, here with c/o LE edema - will order labs, US to r/o DVT though she has been sitting in a chair with her feet dangling could be dependent edema. Also c/o back pain - she is neuro intact doubt CE syndrome will obtain CT lumbar films - valium and lidocaine patches. She also has UTI did not finish recent abx course will start on macrobid. She is overall not toxic - did discuss she needs MRI with PCP and likely our pain managmeent clinic. Lab Data Result diagrams: 07/28/21 17:49 07/28/21 17:49 Labs: Lab Results 07/28/21 07/28/21 07/28/21 Range/Units 16:58 17:49 17:49 WBC 9.1 (4.8-10.8) X10*3/uL RBC 4.80 (4.20-5.50) X10*6/uL Hgb 14.3 (12.0-16.0) g/dl Hct 44.2 (37.0-47.0) % MCV 92.1 (80.0-98.0) fL MCH 29.8 (27.0-33.0) pg MCHC 32.4 (31.0-35.0) g/dl RDW 12.7 (11.0-16.0) % Plt Count 156 L (160-400) X10*3/uL MPV 9.6 (9.4-12.3) fL Immature Gran % (Auto) 0.4 (0.0-0.4) % Neut % (Auto) 56.1 (45-73) % Lymph % (Auto) 34.9 (20-40) % [place] % (Auto) 7.6 (2-11) % Eos % (Auto) 0.7 (0-4) % Baso % (Auto) 0.3 (0-2) % Lymph # (Auto) 3.2 (1.2-4.9) X10*3/uL [place] # (Auto) 0.7 (0.1-1.2) X10*3/uL Eos # (Auto) 0.1 (0.0-0.4) X10*3/uL Baso # (Auto) 0.0 (0.0-0.2) X10*3/uL Abs Immat Gran (auto) 0.04 H (0.00-0.03) X10*3/uL Absolute Neuts (auto) 5.1 (2.0-8.3) x10*3/uL Absolute Nucleated RBC 0.000 (0.0-0.012) X10*3/uL Nucleated RBC % (auto) 0.0 (0.0-0.2) /100WBC Sodium 137 (135-145) mmol/L Potassium 4.6 (3.3-5.1) mmol/L Chloride 98 (96-108) mmol/L Carbon Dioxide 29 (22-29) mmol/L Anion Gap 15 (12-20) BUN 14 (9-16) mg/dL Creatinine 0.73 (0.5-1.4) mg/dL Estim Creat Clear Calc 95.9 Estimated GFR > 60 Random Glucose 148 H (60-115) mg/dL Calcium 9.2 (8.4-10.2) mg/dL Total Bilirubin 0.3 (0.0-1.0) mg/dL Direct Bilirubin < 0.2 (0.0-0.5) mg/dL AST 23 D (5-31) U/L ALT 25 (0-31) U/L Alkaline Phosphatase 60 (39-117) U/L Troponin I High Sens (<3.5-17.0) ng/L B-Natriuretic Peptide (<100) pg/mL Total Protein 6.8 (6.5-8.0) g/dL Albumin 4.1 (3.5-5.0) g/dL Urine Color YELLOW Urine Appearance HAZY Urine pH 6.5 (5.0-8.0) Ur Specific [place] 1.015 (1.005-1.025) Urine Protein NEG (NEG-TRACE) MG/DL Urine Glucose (UA) NEG (NEG) MG/DL Urine Ketones NEG (NEG) MG/DL Urine Blood NEG (NEG) Urine Nitrite NEG (NEG) Ur Leukocyte Esterase 1+ H (NEG) Urine RBC 0-2 (0) /HPF Urine WBC 10-14 H (0-4) /HPF Ur Squamous Epith Cells NONE /LPF Ur Renal Epithelial Cell 1+ /LPF Urine Bacteria NONE /LPF 07/28/21 07/28/21 Range/Units 17:49 22:16 WBC (4.8-10.8) X10*3/uL RBC (4.20-5.50) X10*6/uL Hgb (12.0-16.0) g/dl Hct (37.0-47.0) % MCV (80.0-98.0) fL MCH (27.0-33.0) pg MCHC (31.0-35.0) g/dl RDW (11.0-16.0) % Plt Count (160-400) X10*3/uL MPV (9.4-12.3) fL Immature Gran % (Auto) (0.0-0.4) % Neut % (Auto) (45-73) % Lymph % (Auto) (20-40) % [place] % (Auto) (2-11) % Eos % (Auto) (0-4) % Baso % (Auto) (0-2) % Lymph # (Auto) (1.2-4.9) X10*3/uL [place] # (Auto) (0.1-1.2) X10*3/uL Eos # (Auto) (0.0-0.4) X10*3/uL Baso # (Auto) (0.0-0.2) X10*3/uL Abs Immat Gran (auto) (0.00-0.03) X10*3/uL Absolute Neuts (auto) (2.0-8.3) x10*3/uL Absolute Nucleated RBC (0.0-0.012) X10*3/uL Nucleated RBC % (auto) (0.0-0.2) /100WBC Sodium (135-145) mmol/L Potassium (3.3-5.1) mmol/L Chloride (96-108) mmol/L Carbon Dioxide (22-29) mmol/L Anion Gap (12-20) BUN (9-16) mg/dL Creatinine (0.5-1.4) mg/dL Estim Creat Clear Calc Estimated GFR Random Glucose (60-115) mg/dL Calcium (8.4-10.2) mg/dL Total Bilirubin (0.0-1.0) mg/dL Direct Bilirubin (0.0-0.5) mg/dL AST (5-31) U/L ALT (0-31) U/L Alkaline Phosphatase (39-117) U/L Troponin I High Sens < 3.5 (<3.5-17.0) ng/L B-Natriuretic Peptide 10 (<100) pg/mL Total Protein (6.5-8.0) g/dL Albumin (3.5-5.0) g/dL Urine Color Urine Appearance Urine pH (5.0-8.0) Ur Specific [place] (1.005-1.025) Urine Protein (NEG-TRACE) MG/DL Urine Glucose (UA) (NEG) MG/DL Urine Ketones (NEG) MG/DL Urine Blood (NEG) Urine Nitrite (NEG) Ur Leukocyte Esterase (NEG) Urine RBC (0) /HPF Urine WBC (0-4) /HPF Ur Squamous Epith Cells /LPF Ur Renal Epithelial Cell /LPF Urine Bacteria /LPF ECG Data Interpretation: Rate: 74 Rhythm: NSR Ava: normal Normal P waves. Normal DEDE. Normal QRS complex. ST T wave : normal no MICKEY qTC: normal prior studies: no acute ischemia The study has been interpreted contemporaneously by me. S Discharge Plan Discharge Clinical Impression: Leg edema UTI (urinary tract infection) Qualifiers: Urinary tract infection type: acute cystitis Hematuria presence: without hematuria Qualified Code(s): N30.00 - Acute cystitis without hematuria Low back pain Qualifiers: Chronicity: chronic Back pain laterality: bilateral Sciatica presence: without sciatica Qualified Code(s): M54.50 - Low back pain, unspecified Patient Disposition: Home, Self-Care Instructions: Urinary Tract Infection in Women (ED), Leg Edema (ED), Chronic Back Pain (DC) Additional Instructions: return to ED for any worsening symptoms or concerns you need MRI with your doctor please call as soon as possible Prescriptions: New diazepam [Valium] 5 mg tablet 5 mg PO TID PRN (Reason: muscle spasm) Qty: 8 0RF lidocaine 4 % adhesive patch,medicated 1 patch topical DAILY PRN (Reason: pain) Qty: 10 0RF Rx Instructions: may leave on for up to 12 hrs furosemide [Lasix] 20 mg tablet 20 mg PO DAILY Qty: 3 0RF nitrofurantoin monohyd/m-cryst [Macrobid] 100 mg capsule 100 mg PO BID 7 Days Qty: 14 0RF Rx Instructions: must administer with a meal/food No Action (DME) blood-glucose meter [FreeStyle Hiland Lite] Kit See Rx Instructions .ROUTE .MEDSUPPLY Qty: 1 0RF Rx Instructions: check blood sugar twice a day before meals and keep a log of the readings (DME) lancets [FreeStyle Lancets] 28 gauge misc See Rx Instructions .ROUTE .MEDSUPPLY Qty: 100 5RF Rx Instructions: used to check (DME) walker with seat See Rx Instructions .Route .MEDSUPPLY Qty: 1 0RF Rx Instructions: As directed (DME) Shower Chair Misc See Rx Instructions .ROUTE .MEDSUPPLY Qty: 1 0RF Rx Instructions: As directed budesonide-formoterol [Symbicort] 160-4.5 mcg/actuation HFA aerosol inhaler 2 puff PO BID Qty: 10.2 1RF (DME) FreeStyle Lite Strips Strip See Rx Instructions .ROUTE .MEDSUPPLY Qty: 100 5RF Rx Instructions: check blood sugar twice a day atorvastatin 10 mg tablet 10 mg PO BEDTIME Qty: 30 11RF cholecalciferol (vitamin D3) 125 mcg (5,000 unit) capsule 125 mcg PO DAILY Qty: 30 2RF mecobalamin (vitamin B12) 1,000 mcg tablet,disintegrating 1,000 mcg sublingual DAILY Qty: 30 2RF Rx Instructions: place tablet under tongue and allow to dissolve for at least30 secs before swallowing metformin 1,000 mg tablet 1,000 mg PO BID 30 Days Qty: 60 4RF Rx Instructions: Needs labs for more refills gabapentin 800 mg tablet 800 mg PO TID Qty: 90 2RF albuterol sulfate [Ventolin HFA] 90 mcg/actuation HFA aerosol inhaler 2 puff inhalation QID PRN (Reason: shortness of breath or wheezing) Qty: 8.5 1RF divalproex 500 mg tablet extended release 24 hr 1 tab PO TID 0RF cyclobenzaprine 5 mg tablet 5 mg PO Q8H PRN (Reason: pain (scale score 7-10)) 5 Days Qty: 14 0RF lidocaine [Lidoderm] 5 % adhesive patch,medicated 1 patch topical DAILY MDD remove after 12 hours PRN (Reason: pain) Qty: 30 0RF Rx Instructions: leave on most painful area for up to 12 hrs naproxen 500 mg tablet 500 mg PO BID PRN (Reason: pain) 10 Days Qty: 20 0RF acetaminophen [Tylenol Extra Strength] 500 mg tablet 500 mg PO Q6H PRN (Reason: pain or fever) Qty: 20 0RF cefuroxime axetil 250 mg tablet 250 mg PO BID 7 Days Qty: 14 0RF risperidone 4 mg tablet 4 mg PO BEDTIME 0RF trazodone 100 mg tablet 100 mg PO BEDTIME 0RF buprenorphine-naloxone [Suboxone] 8-2 mg film 1 film buccal DAILY 0RF dextroamphetamine-amphetamine 30 mg tablet 1 tab PO BID 0RF azithromycin 250 mg tablet See Rx Instructions PO .COMPLEX Qty: 6 0RF Rx Instructions: For 250 mg dose pack: take 500 mg today (day 1), then 250 mg for 4 days (days 2-5) PO diclofenac potassium 50 mg tablet 50 mg PO BID PRN (Reason: pain) Qty: 30 0RF nicotine 21 mg/24 hr patch 24 hour 1 patch transdermal DAILY Qty: 28 0RF (DME) blood-glucose meter [FreeStyle Lite Meter] Kit See Rx Instructions .ROUTE .MEDSUPPLY Qty: 1 0RF Rx Instructions: As directed twice a day
[2021-07-28 21:16] LABS: Alanine Aminotransferase 25 U/L (0-31); Albumin Level 4.1 g/dL (3.5-5.0); Alkaline Phosphatase 60 U/L (39-117); Aspartate Amino Transferase 23 U/L (5-31); Bilirubin Direct < 0.2 mg/dL (0.0-0.5); Bilirubin Total 0.3 mg/dL (0.0-1.0); Total Protein 6.8 g/dL (6.5-8.0)
[2021-07-28] MEDS: Nitrofurantoin Monohyd/M-Cryst 100 MG CAPSULE PO (22:04)
[2021-07-28] MEDS: diazePAM 2 MG TABLET 5 MG PO (22:04)
[2021-07-28] MEDS: Lidocaine 4 % Patch ADH..PATCH 2 PATCH TRANSDERMA (22:09)
[2021-07-28 22:28] VITALS: BP 108/66; PULSE 84; RESP 16; O2SAT 96
[2021-07-28 22:40] LABS: B Type Natriuretic Peptide 10 pg/mL (<100)
== END 2021-07-28 23:53 | disposition home or self-care (01) ==
PROVIDERS: Emergency Provider Emergency Medicine; PCP Internal Medicine
DX: R60.0 Localized edema (principal); N30.00 Acute cystitis without hematuria; M54.50 Low back pain, unspecified; J44.9 Chronic obstructive pulmonary disease, unspecified; F17.210 Nicotine dependence, cigarettes, uncomplicated; Z79.899 Other long term (current) drug therapy; Z71.6 Tobacco abuse counseling
CPT/HCPCS: 36415; 71045; 72131; 80048; 80076; 81001; 83880; 84484; 85025; 87086; 87088; 87186; 93005; 93970; 99284

== ENCOUNTER 2021-08-03 13:57 | Outpatient (REF) | payer MEDICARE, MEDICAID, SELFPAY ==
--- NOTE | ~2021-08-03 | XR_ITS ---
EXAMINATION: XR BILATERAL HIPS WITH AP PELVIS CLINICAL INFORMATION: Pain. COMPARISON: CT lumbar spine dated from 07/28/2021. TECHNIQUE: AP view of the pelvis and single views of each hip were obtained. FINDINGS: No acute fractures or malalignment. The femoral heads are well-seated in their respective acetabula. Mild to moderate degenerative osteoarthritis in both hips with joint space narrowing, subcortical a cyst and osteophytes. SI joints are symmetric. Pubic symphysis is maintained. Partially imaged lumbar fusion hardware. XR/XR hip BI w [id number] IMPRESSION: No acute fractures or malalignment. 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
== END 2021-08-03 13:58 | disposition home or self-care (01) ==
LOC: HO.HMGCX 13:57
PROVIDERS: PCP Internal Medicine; Visit Provider Internal Medicine
DX: M25.551 Pain in right hip (principal); M25.552 Pain in left hip; R26.89 Other abnormalities of gait and mobility
CPT/HCPCS: 73521

== ENCOUNTER → 2021-08-04 08:12 | Outpatient (BNVA) | payer MEDICARE, MEDICAID, SELFPAY | PROVIDERS: PCP Internal Medicine; Visit Provider Dietitian, Registered | DX: E66.9 Obesity, unspecified (principal); Z68.41 Body mass index [BMI] 40.0-44.9, adult; E11.9 Type 2 diabetes mellitus without complications; Z71.3 Dietary counseling and surveillance | CPT/HCPCS: 97803 ==

== ENCOUNTER → 2021-08-28 09:58 | Outpatient (BNVA) | payer MEDICARE, MEDICAID, SELFPAY | PROVIDERS: PCP Internal Medicine; Visit Provider Nurse Practitioner Family | DX: M51.36 Other intervertebral disc degeneration, lumbar region (principal); M47.816 Spondylosis without myelopathy or radiculopathy, lumbar region; M54.16 Radiculopathy, lumbar region; M16.0 Bilateral primary osteoarthritis of hip; M25.551 Pain in right hip; M25.552 Pain in left hip; Z98.1 Arthrodesis status | CPT/HCPCS: 99202 ==

== ENCOUNTER 2021-09-13 13:00 | Outpatient (REF) | payer MEDICARE, MEDICAID, SELFPAY ==
[2021-09-13 13:53] LABS: Appearance Urine HAZY; Color Urine YELLOW; Glucose Urine UA NEG (NEG); Leukocyte Esterase Urine 1+ (NEG); Nitrite Urine POS (NEG); Specific Gravity - Urine >= 1.030 (1.005-1.025); UACC Culture Trigger YES; Urine Blood 3+ (NEG); Urine Ketones NEG (NEG); Urine Protein 2+ MG/DL (NEG-TRACE)
[2021-09-13 14:06] LABS: Squamous Epithelial Cell Urine 2+ /LPF
[2021-09-13 14:07] LABS: Bacteria Urine 1+ /LPF; WBC Urine 50-75 /HPF (0-4)
[2021-09-13 14:08] LABS: WBC Clumps Urine NOTED
== END 2021-09-13 13:01 | disposition home or self-care (01) ==
LOC: HO.HMGCLDS 13:00
PROVIDERS: Visit Provider Internal Medicine
DX: R30.0 Dysuria (principal)
CPT/HCPCS: 81001; 87086; 87088; 87186

== ENCOUNTER 2021-09-17 19:17 | Observation (INO) | payer MEDICARE, MEDICAID, SELFPAY ==
--- NOTE | ~2021-09-17 | CT_ITS ---
EXAMINATION: CT ABDOMEN AND PELVIS WITHOUT CONTRAST CLINICAL INFORMATION: Abdominal pain, nausea and vomiting. COMPARISON: Abdominal ultrasound dated from 06/07/2021. CT abdomen/pelvis dated from 10/16/2018. TECHNIQUE: Multidetector volumetric imaging was performed from the superior aspect of the liver through the pubic symphysis. Sagittal and coronal reformatted images were obtained on the technologist's workstation. This CT examination was performed using dose optimization techniques as appropriate, variously including the following: *Automated exposure control *Adjustment of mA and/or kV according to patient size (this includes techniques or standardized protocols for targeted exams where dose is matched to indication/reason for exam; i.e. extremities or head) *Use of iterative reconstruction technique DLP: 903 mGy-cm FINDINGS: LUNG BASES: No focal consolidation or pleural effusion. LIVER, GALLBLADDER, AND BILIARY TREE: Chronic hepatomegaly and hepatic steatosis. Cholecystectomy with unchanged mild dilatation of the common bile duct. No intrahepatic biliary ductal dilatation. PANCREAS: Atrophic. The main pancreatic duct is nondilated. There is no pericholecystic fat stranding or free fluid. SPLEEN: Mild chronic splenomegaly. ADRENAL GLANDS: Unremarkable. KIDNEYS AND URETERS: The kidneys are normal in size, shape, and attenuation. No hydronephrosis, hydroureter, or calculi seen. No perinephric stranding. BLADDER: Underdistended limiting its evaluation. GASTROINTESTINAL TRACT: Small hiatal hernia. The stomach and the small bowel are nondilated. There is diffuse colonic distention with large amount of stool burden. No evidence of acute diverticulitis or acute colitis. ABDOMINAL WALL: Anterior abdominal rectus muscle diastases. Lower surgical abdominal scarring. LYMPH NODES: No lymphadenopathy by size criteria. VASCULAR: Scattered atherosclerotic disease. PELVIC VISCERA: Hysterectomy. No pelvic mass. OSSEOUS STRUCTURES: Posterior instrumentation with interdisc spacers at L4-L5 and L5-S1. No acute or aggressive appearing osseous abnormalities. CT/CT abdomen pelvis wo con IMPRESSION: Colonic distention and significant amount of stool burden suggesting constipation. Chronic hepatosplenomegaly, redemonstration of hepatic steatosis.
[2021-09-17 19:23] VITALS: BP 160/76; PULSE 100; RESP 18; TEMP 37.2; O2SAT 95
[2021-09-17 19:59] VITALS: BMI 37.8
[2021-09-17 20:12] LABS: MANUAL DIFF FLAG NO
[2021-09-17 20:13] LABS: Basophils Percent Auto 0.5 % (0-2); Eosinophils Percent Auto 0.5 % (0-4); Hematocrit 44.8 % (37.0-47.0); Hemoglobin 14.8 g/dl (12.0-16.0); Imm Gran Abs Auto 0.02 X10*3/uL (0.00-0.03); Imm Gran Pct Auto 0.2 % (0.0-0.4); Lymphocytes Percent Auto 33.6 % (20-40); Mean Corpuscular Hemoglobin 29.8 pg (27.0-33.0); Mean Corpuscular Volume 90.3 fL (80.0-98.0); Mean Platelet Volume 9.6 fL (9.4-12.3); Monocytes Absolute Auto 0.7 X10*3/uL (0.1-1.2); Monocytes Percent Auto 7.3 % (2-11); Neutrophils Absolute Auto 5.1 x10*3/uL (2.0-8.3); Neutrophils Percent Auto 57.9 % (45-73); Platelet Count 175 X10*3/uL (160-400); Red Blood Count 4.96 X10*6/uL (4.20-5.50); Red Cell Distribution Width 12.4 % (11.0-16.0); White Blood Count 8.9 X10*3/uL (4.8-10.8)
[2021-09-17 20:14] LABS: Appearance Urine HAZY; Color Urine YELLOW; Glucose Urine UA NEG (NEG); Leukocyte Esterase Urine TRACE (NEG); Nitrite Urine NEG (NEG); Urine Blood NEG (NEG); Urine Ketones NEG (NEG); Urine Protein NEG (NEG-TRACE)
[2021-09-17 20:24] LABS: Bacteria Urine 1+ /LPF; RBC Urine 0 /HPF (0); Squamous Epithelial Cell Urine 1+ /LPF; WBC Urine 0-2 /HPF (0-4)
[2021-09-17 20:35] LABS: Alanine Aminotransferase 25 U/L (0-31); Alkaline Phosphatase 89 U/L (39-117); Anion Gap 15 (12-20); Aspartate Amino Transferase 19 U/L (5-31); Bilirubin Total 0.4 mg/dL (0.0-1.0); Blood Urea Nitrogen 7 mg/dL (9-16); Carbon Dioxide 28 mmol/L (22-29); Chloride 98 mmol/L (96-108); Creatinine Clr Calc Pharmacy 91.5; Estimated Glomerular Filt Rate > 60; Glucose Random 139 mg/dL (60-115); Lipase 38 U/L (8-78); Potassium 4.2 mmol/L (3.3-5.1); Sodium 137 mmol/L (135-145); Total Protein 7.2 g/dL (6.5-8.0)
--- NOTE | 2021-09-17 22:56 | ECG_ITS ---
Test Reason : NAUSEA/VOMITING Blood Pressure : / mmHG Vent. Rate : 081 BPM Atrial Rate : 081 BPM P-R Int : 130 ms QRS Dur : 068 ms QT Int : 328 ms P-R-T Axes : 063 069 057 degrees QTc Int : 381 ms Normal sinus rhythm Normal ECG When compared with ECG of 28-JUL-2021 17:52, No significant change was found Referred By: Tete Longo Electronically Signed By:Miugel A Girard
[2021-09-17 22:58] VITALS: BP 132/78; PULSE 103; RESP 18; TEMP 36.7; O2SAT 95
--- NOTE | 2021-09-17 22:58 | ED.NAVMDI ---
HPI - Nausea/Vomiting/Diarrhea General Chief complaint: Nausea/Vomiting/Diarrhea Stated complaint: Vomiting Time Seen by Provider: 09/17/21 22:56 History of Present Illness HPI Narrative: Patient is a 61-year-old female presents today with abdominal pain nausea vomiting patient vomiting mostly clear liquids. Status post cholecystectomy in the past. Status post hysterectomy in the past. No history of small-bowel obstruction in the past. Complaining of nausea vomiting getting worse. Positive history of diabetes. Positive minimal coughing. No fever no chills. No shortness of breath. No diaphoresis. Patient immunized for COVID. Related Data Home Medications Medication Instructions Recorded Confirmed buprenorphine 8 mg-naloxone 2 mg 1 film BUCCAL DAILY 02/11/20 09/05/21 sublingual film (Suboxone) risperidone 4 mg tablet 4 mg PO BEDTIME 02/11/20 09/05/21 dextroamphetamine-amphetamine 30 1 tab PO BID 02/18/20 09/05/21 mg tablet divalproex 500 mg tablet,extended 1 tab PO TID 03/12/21 09/05/21 release 24 hr Previous Rx's Medication Instructions Recorded blood-glucose meter (FreeStyle #1 ea 02/23/20 [facility] Lite) lancets 28 gauge (FreeStyle #100 ea 02/23/20 Lancets) walker with seat #1 ea 08/11/20 Shower Chair #1 ea 08/18/20 Symbicort 160 mcg-4.5 2 puff PO BID #10.2 g NS 12/28/20 mcg/actuation HFA aerosol inhaler (budesonide-formoterol) blood-glucose meter (FreeStyle #1 ea 03/20/21 Lite Meter) blood sugar diagnostic (FreeStyle #100 ea 03/22/21 Lite Strips) atorvastatin 10 mg tablet 10 mg PO BEDTIME #30 tab 05/09/21 cholecalciferol (vitamin D3) 125 125 mcg PO DAILY #30 cap 05/11/21 mcg (5,000 unit) capsule mecobalamin (vitamin B12) 1,000 1,000 mcg SUBLINGUAL DAILY #30 tab 05/11/21 mcg disintegrating tablet,sublingual albuterol sulfate 90 mcg/actuation 2 puff INHALATION QID PRN #8.5 g 07/12/21 aerosol inhaler (Ventolin HFA) furosemide 20 mg tablet (Lasix) 20 mg PO DAILY #3 tab 07/28/21 metformin 1,000 mg tablet 1,000 mg PO BID 30 Days #60 tab 08/11/21 gabapentin 800 mg tablet See Rx Instructions PO BID #90 tab 08/17/21 nitrofurantoin macrocrystal 100 mg 100 mg PO Q12H 10 Days #20 cap 08/17/21 capsule triamcinolone acetonide 0.1 % 1 appl TOPICAL DAILY 10 Days #15 g 08/17/21 topical cream carboxymethylcellulose-citric acid 3 cap PO BID #90 cap 08/28/21 0.75 gram capsule (Plenity (Welcome Kit)) sulindac 200 mg tablet 200 mg PO BID PRN 30 Days #60 tab 08/29/21 cephalexin 500 mg capsule 500 mg PO Q12H 10 Days #20 cap 09/15/21 ondansetron 4 mg disintegrating 4 mg PO TID PRN 5 Days #10 tab 09/18/21 tablet Allergies Allergy/AdvReac Type Severity Reaction Status Date / Time bupropion [From WELLBUTRIN] Allergy Intermediate ITCHING Verified 09/17/21 19:59 influenza virus vaccine, Allergy Unknown RASH Verified 09/17/21 19:59 specific [FLU VACCINE] latex Allergy Unknown rash Verified 09/17/21 19:59 Sulfa (Sulfonamide Allergy Unknown UNKNOWN, Verified 09/17/21 19:59 Antibiotics) itch, itching Review of Systems Review of Systems: Positive nausea vomiting diarrhea positive generalized malaise Yes all other systems are reviewed and are negative PMFSH Past Medical History Attestation statement: The following information was validated with the patient. Medical History ADHD Bilateral groin pain Cigarette smoker motivated to quit COPD (chronic obstructive pulmonary disease) Depression Diabetes mellitus with hyperglycemia, without long-term current use of insulin Diabetic neuropathy DM2 (diabetes mellitus, type 2) Dyslipidemia Dysuria GERD (gastroesophageal reflux disease) History of pneumonia Insomnia Left shoulder pain Lumbar degenerative disc disease Mixed incontinence urge and stress Nausea Obesity Obesity due to excess calories Opiate addiction TEA on CPAP Patchy loss of hair Smoker unmotivated to quit Type 2 diabetes mellitus without complication, with no history of insulin use Surgical History H/O colonoscopy H/O tubal ligation History of lumbar fusion History of lumbar spinal fusion History of partial hysterectomy Hx of cholecystectomy Family History Family History Father Aneurysm Social History Social History Household Members: Children Household Members Other:: daughter Housing: House Alcohol intake: never Patient Tobacco Use Status: Current everyday Tobacco user Cigarette Packs Per Day: 0.5 Cigarettes Per Day: 10 e-Cigarette/Vaping Use: Currently Using Second Hand Smoke Exposure: Yes Advance Directives: No Current occupational status: unemployed Cognitive needs: Yes (walker) Hearing needs: No Vision needs: Yes (glasses) Physical Exam Vital Signs: Vital Signs: Last Vital Signs Temp 98.0 F 09/17/21 22:58 Pulse 103 H 09/17/21 22:58 Resp 18 09/17/21 22:58 BP 132/78 09/17/21 22:58 Pulse Ox 95 09/17/21 22:58 BMI result Body Mass Index 37.8 MDM - Nausea/Vomiting/Diarrhea MDM Narrative Medical decision making narrative: Patient is 61 years old presented with nausea vomiting also had diarrhea. Patient claims she has vomiting mostly clear liquid. Patient's electrolytes unremarkable. CT scan of the abdomen showed no obstruction no abscess no perforation it did show constipation. Patient was given a Fleet enema with good results. Patient's symptom improved with Zofran and Reglan. Question gastroparesis. Will start patient on regular doses of Reglan. Patient's urine showed no signs of infection. White count is normal. In stable condition. Patient's EKG showed a sinus pattern heart rate is 80 ME QRS QT within normal limits is no acute ST segment elevation. Medical Records Attestation: I reviewed the patient's medical records. Lab Data Attestation: I reviewed the patient's lab results. Result diagrams: 09/17/21 20:06 09/17/21 20:06 Labs: Lab Results 09/17/21 09/17/21 09/17/21 Range/Units 20:06 20:06 20:06 WBC 8.9 (4.8-10.8) X10*3/uL RBC 4.96 (4.20-5.50) X10*6/uL Hgb 14.8 (12.0-16.0) g/dl Hct 44.8 (37.0-47.0) % MCV 90.3 (80.0-98.0) fL MCH 29.8 (27.0-33.0) pg MCHC 33.0 (31.0-35.0) g/dl RDW 12.4 (11.0-16.0) % Plt Count 175 (160-400) X10*3/uL MPV 9.6 (9.4-12.3) fL Immature Gran % (Auto) 0.2 (0.0-0.4) % Neut % (Auto) 57.9 (45-73) % Lymph % (Auto) 33.6 (20-40) % [place] % (Auto) 7.3 (2-11) % Eos % (Auto) 0.5 (0-4) % Baso % (Auto) 0.5 (0-2) % Lymph # (Auto) 3.0 (1.2-4.9) X10*3/uL [place] # (Auto) 0.7 (0.1-1.2) X10*3/uL Eos # (Auto) 0.0 (0.0-0.4) X10*3/uL Baso # (Auto) 0.0 (0.0-0.2) X10*3/uL Abs Immat Gran (auto) 0.02 (0.00-0.03) X10*3/uL Absolute Neuts (auto) 5.1 (2.0-8.3) x10*3/uL Absolute Nucleated RBC 0.000 (0.0-0.012) X10*3/uL Nucleated RBC % (auto) 0.0 (0.0-0.2) /100WBC Sodium 137 (135-145) mmol/L Potassium 4.2 (3.3-5.1) mmol/L Chloride 98 (96-108) mmol/L Carbon Dioxide 28 (22-29) mmol/L Anion Gap 15 (12-20) BUN 7 L (9-16) mg/dL Creatinine 0.76 (0.5-1.4) mg/dL Estim Creat Clear Calc 91.5 Estimated GFR > 60 Random Glucose 139 H (60-115) mg/dL Calcium 10.0 D (8.4-10.2) mg/dL Total Bilirubin 0.4 (0.0-1.0) mg/dL AST 19 (5-31) U/L ALT 25 (0-31) U/L Alkaline Phosphatase 89 D (39-117) U/L Total Protein 7.2 (6.5-8.0) g/dL Albumin 4.0 (3.5-5.0) g/dL Lipase 38 (8-78) U/L Urine Color YELLOW Urine Appearance HAZY Urine pH 7.0 (5.0-8.0) Ur Specific [place] 1.020 (1.005-1.025) Urine Protein NEG (NEG-TRACE) MG/DL Urine Glucose (UA) NEG (NEG) MG/DL Urine Ketones NEG (NEG) MG/DL Urine Blood NEG (NEG) Urine Nitrite NEG (NEG) Ur Leukocyte Esterase TRACE H (NEG) Urine RBC 0 (0) /HPF Urine WBC 0-2 (0-4) /HPF Ur Squamous Epith Cells 1+ /LPF Urine Bacteria 1+ /LPF COVID-19 ([facility]INCESS) (Negative) COVID-19 Clin Com 09/17/21 Range/Units 23:30 WBC (4.8-10.8) X10*3/uL RBC (4.20-5.50) X10*6/uL Hgb (12.0-16.0) g/dl Hct (37.0-47.0) % MCV (80.0-98.0) fL MCH (27.0-33.0) pg MCHC (31.0-35.0) g/dl RDW (11.0-16.0) % Plt Count (160-400) X10*3/uL MPV (9.4-12.3) fL Immature Gran % (Auto) (0.0-0.4) % Neut % (Auto) (45-73) % Lymph % (Auto) (20-40) % [place] % (Auto) (2-11) % Eos % (Auto) (0-4) % Baso % (Auto) (0-2) % Lymph # (Auto) (1.2-4.9) X10*3/uL [place] # (Auto) (0.1-1.2) X10*3/uL Eos # (Auto) (0.0-0.4) X10*3/uL Baso # (Auto) (0.0-0.2) X10*3/uL Abs Immat Gran (auto) (0.00-0.03) X10*3/uL Absolute Neuts (auto) (2.0-8.3) x10*3/uL Absolute Nucleated RBC (0.0-0.012) X10*3/uL Nucleated RBC % (auto) (0.0-0.2) /100WBC Sodium (135-145) mmol/L Potassium (3.3-5.1) mmol/L Chloride (96-108) mmol/L Carbon Dioxide (22-29) mmol/L Anion Gap (12-20) BUN (9-16) mg/dL Creatinine (0.5-1.4) mg/dL Estim Creat Clear Calc Estimated GFR Random Glucose (60-115) mg/dL Calcium (8.4-10.2) mg/dL Total Bilirubin (0.0-1.0) mg/dL AST (5-31) U/L ALT (0-31) U/L Alkaline Phosphatase (39-117) U/L Total Protein (6.5-8.0) g/dL Albumin (3.5-5.0) g/dL Lipase (8-78) U/L Urine Color Urine Appearance Urine pH (5.0-8.0) Ur Specific [place] (1.005-1.025) Urine Protein (NEG-TRACE) MG/DL Urine Glucose (UA) (NEG) MG/DL Urine Ketones (NEG) MG/DL Urine Blood (NEG) Urine Nitrite (NEG) Ur Leukocyte Esterase (NEG) Urine RBC (0) /HPF Urine WBC (0-4) /HPF Ur Squamous Epith Cells /LPF Urine Bacteria /LPF COVID-19 (PRINCESS) Negative (Negative) COVID-19 Clin Com See Note Discharge Plan Discharge Clinical Impression: Diabetic gastroparesis Patient Disposition: Home, Self-Care Instructions: Gastroparesis (ED) Prescriptions: New ondansetron 4 mg tablet,disintegrating 4 mg PO TID PRN (Reason: nausea and vomiting) 5 Days Qty: 10 0RF No Action (DME) blood-glucose meter [FreeStyle [facility] Lite] Kit See Rx Instructions .ROUTE .MEDSUPPLY Qty: 1 0RF Rx Instructions: check blood sugar twice a day before meals and keep a log of the readings (DME) lancets [FreeStyle Lancets] 28 gauge misc See Rx Instructions .ROUTE .MEDSUPPLY Qty: 100 5RF Rx Instructions: used to check (DME) walker with seat See Rx Instructions .Route .MEDSUPPLY Qty: 1 0RF Rx Instructions: As directed (DME) Shower Chair Misc See Rx Instructions .ROUTE .MEDSUPPLY Qty: 1 0RF Rx Instructions: As directed budesonide-formoterol [Symbicort] 160-4.5 mcg/actuation HFA aerosol inhaler 2 puff PO BID Qty: 10.2 1RF (DME) FreeStyle Lite Strips Strip See Rx Instructions .ROUTE .MEDSUPPLY Qty: 100 5RF Rx Instructions: check blood sugar twice a day atorvastatin 10 mg tablet 10 mg PO BEDTIME Qty: 30 11RF cholecalciferol (vitamin D3) 125 mcg (5,000 unit) capsule 125 mcg PO DAILY Qty: 30 2RF mecobalamin (vitamin B12) 1,000 mcg tablet,disintegrating 1,000 mcg sublingual DAILY Qty: 30 2RF Rx Instructions: place tablet under tongue and allow to dissolve for at least30 secs before swallowing albuterol sulfate [Ventolin HFA] 90 mcg/actuation HFA aerosol inhaler 2 puff inhalation QID PRN (Reason: shortness of breath or wheezing) Qty: 8.5 1RF metformin 1,000 mg tablet 1,000 mg PO BID 30 Days Qty: 60 2RF Rx Instructions: Needs labs for more refills Plenity (Welcome Kit) 0.75 gram capsule 3 cap PO BID Qty: 90 0RF Rx Instructions: administer before lunch and evening meal/dinner sulindac 200 mg tablet 200 mg PO BID PRN (Reason: pain) 30 Days Qty: 60 0RF cephalexin 500 mg capsule 500 mg PO Q12H 10 Days Qty: 20 0RF furosemide [Lasix] 20 mg tablet 20 mg PO DAILY Qty: 3 0RF divalproex 500 mg tablet extended release 24 hr 1 tab PO TID 0RF risperidone 4 mg tablet 4 mg PO BEDTIME 0RF buprenorphine-naloxone [Suboxone] 8-2 mg film 1 film buccal DAILY 0RF dextroamphetamine-amphetamine 30 mg tablet 1 tab PO BID 0RF gabapentin 800 mg tablet See Rx Instructions PO BID Qty: 90 2RF Rx Instructions: 1 tablet in am and 2 tablets in pm triamcinolone acetonide 0.1 % cream 1 appl topical DAILY 10 Days Qty: 15 0RF nitrofurantoin macrocrystal 100 mg capsule 100 mg PO Q12H 10 Days Qty: 20 0RF Rx Instructions: must administer with a meal/food (DME) blood-glucose meter [FreeStyle Lite Meter] Kit See Rx Instructions .ROUTE .MEDSUPPLY Qty: 1 0RF Rx Instructions: As directed twice a day Referrals: Melissa Topete MD [Primary Care Provider] -
[2021-09-17] MEDS: ondansetron HCL 4 MG/2 ML VIAL IVPUSH (23:24)
[2021-09-17] MEDS: Metoclopramide HCl 10 MG/2 ML VIAL IVPUSH (23:24)
[2021-09-17] MEDS: 0.9 % Sodium Chloride 1,000 ML 999 ML IV (23:25)
[2021-09-17 23:51] LABS: COVID-19 Test Negative (Negative)
--- NOTE | 2021-09-18 00:12 | PC.NURSE ---
Pt just returned from radiology to ED Bed 8. Reports that nausea has improved slightly since medicating, but describing heartburn-like discomfort. notified.
[2021-09-18] MEDS: Famotidine/PF 20 MG/2 ML VIAL IVPUSH (00:36)
--- NOTE | 2021-09-18 00:42 | PC.NURSE ---
Patient refused oral Maalox at this time, but accepted Pepcid administration for heartburn. Pt reports that nausea continues, and for this reason, won't tolerate Maalox. aware. Pt continues to dry heave/gag at this time. Call oden within reach.
[2021-09-18] MEDS: Sodium Phosphate,Mono-Dibasic 133 ML ENEMA PR (01:14)
[2021-09-18] MEDS: ondansetron HCL 4 MG/2 ML VIAL IVPUSH (01:14)
[2021-09-18] MEDS: Prochlorperazine Edisylate 10 MG/2 ML VIAL 5 MG IVPUSH (02:03)
--- NOTE | 2021-09-18 02:06 | PC.NURSE ---
Fleet enema administered per MD orders-patient tolerated well. Patient reports small, soft, brown BM after Fleet enema. Patient continues to c/o nausea and vomiting small amounts of whitish, foamy vomitus every 1-15 min. Provider notified-Zofran IV push administered-effect pending. Patient unable to tolerate oral fluid/bites of food. Provider is aware.
[2021-09-18 04:02] VITALS: BP 128/55; PULSE 99; RESP 18; O2SAT 94
--- NOTE | 2021-09-18 05:21 | PC.NURSE ---
Patient reports nausea improving, no vomiting at present-patient resting in bed with her eyes closed. + BSx4, + flatus-small soft brown BM earlier today.
--- NOTE | 2021-09-18 06:02 | P.HPHOSP_ITS ---
History of Present Illness Date of Service: 09/18/21 Chief Complaint: nausea/vomiting 61-year-old female with a past medical history of hypertension, hyperlipidemia, diabetes, diabetic neuropathy, anxiety, depression, chronic back pain, GERD, obesity, TEA on CPAP, insomnia, tobacco dependence, ADHD presented to the hospital today with a chief complaint of nausea vomiting and abdominal discomfort. Patient reports that the past 1 day she has been having nausea and vomiting; had multiple episodes of vomiting; denies any blood in the vomitus. Denies any concerns for food poisoning. Also complains of abdominal discomfort. Denies any diarrhea. Denies any chest pain or palpitations. Denies any history of cannabis use. Reports that she is on Suboxone. Review of all other systems is negative except mentioned above ER course: Per ER team patient noted a mild abdominal discomfort; CT scan showed constipation; labs essentially benign; given Zofran and Reglan with no significant improvement. Decided to admit to the hospital for observation. Patient was given enema PMF Medical History ADHD Bilateral groin pain Cigarette smoker motivated to quit COPD (chronic obstructive pulmonary disease) Depression Diabetes mellitus with hyperglycemia, without long-term current use of insulin Diabetic neuropathy DM2 (diabetes mellitus, type 2) Dyslipidemia Dysuria GERD (gastroesophageal reflux disease) History of pneumonia Insomnia Left shoulder pain Lumbar degenerative disc disease Mixed incontinence urge and stress Nausea Obesity Obesity due to excess calories Opiate addiction TEA on CPAP Patchy loss of hair Smoker unmotivated to quit Type 2 diabetes mellitus without complication, with no history of insulin use Family History Father Aneurysm Surgical History H/O colonoscopy H/O tubal ligation History of lumbar fusion History of lumbar spinal fusion History of partial hysterectomy Hx of cholecystectomy Social History Household Members: Children Household Members Other:: daughter Housing: House Alcohol intake: never Patient Tobacco Use Status: Current everyday Tobacco user Cigarette Packs Per Day: 0.5 Cigarettes Per Day: 10 e-Cigarette/Vaping Use: Currently Using Second Hand Smoke Exposure: Yes Advance Directives: No Current occupational status: unemployed Cognitive needs: Yes (walker) Hearing needs: No Vision needs: Yes (glasses) Meds Allergies Allergy/AdvReac Type Severity Reaction Status Date / Time bupropion [From WELLBUTRIN] Allergy Intermediate ITCHING Verified 09/17/21 19:59 influenza virus vaccine, Allergy Unknown RASH Verified 09/17/21 19:59 specific [FLU VACCINE] latex Allergy Unknown rash Verified 09/17/21 19:59 Sulfa (Sulfonamide Allergy Unknown UNKNOWN, Verified 09/17/21 19:59 Antibiotics) itch, itching Home Medications Medication Instructions Recorded Confirmed Last Taken Type atorvastatin 10 mg tablet 1 tab PO BEDTIME 09/18/21 09/18/21 Unknown History buprenorphine 8 mg-naloxone 2 mg strip SUBLINGUAL 09/18/21 Unknown History sublingual film buspirone 10 mg tablet 1 tab BID 09/18/21 09/18/21 Unknown History cephalexin 500 mg capsule 1 cap PO Q12H 09/18/21 09/18/21 Unknown History dextroamphetamine-amphetamine 30 1 tab PO BID 09/18/21 09/18/21 Unknown History mg tablet dextroamphetamine-amphetamine 30 1 tab PO BID 09/18/21 09/18/21 Unknown History mg tablet (Adderall) divalproex 500 mg tablet,extended 3 tab PO QPM 09/18/21 09/18/21 Unknown History release 24 hr divalproex 500 mg tablet,extended 3 tab PO QPM 09/18/21 09/18/21 Unknown History release 24 hr (Depakote ER) doxepin 25 mg capsule 1 - 2 cap PO BEDTIME 09/18/21 09/18/21 Unknown History doxepin 50 mg capsule 1 cap PO BEDTIME 09/18/21 09/18/21 Unknown History gabapentin 800 mg tablet 1 tab PO TID 09/18/21 09/18/21 Unknown History metformin 1,000 mg tablet 1 tab PO BID 09/18/21 09/18/21 Unknown History risperidone 2 mg tablet (Risperdal) 1 tab PO BEDTIME 09/18/21 09/18/21 Unknown History risperidone 4 mg tablet (Risperdal) 1 tab PO BEDTIME 09/18/21 09/18/21 Unknown History sulindac 200 mg tablet 1 tab PO BID PRN 09/18/21 09/18/21 Unknown History trazodone 100 mg tablet 3 tab PO BEDTIME 09/18/21 09/18/21 Unknown History Physical Exam Vital Signs and Narrative: Vital Signs: Last Vital Signs Temp 98.0 F 09/17/21 22:58 Pulse 99 09/18/21 04:02 Resp 18 09/18/21 04:02 BP 128/55 L 09/18/21 04:02 Pulse Ox 94 09/18/21 04:02 BMI result Body Mass Index 37.8 Gen: Appears be in no acute distress HEENT: NCAT, Moist mucosa. Pulmonary: Vesicular breath sounds, fair air entry CVS: Normal S1-S2 Abdomen: BS+, Soft, Nontender Extremities: Warm well perfused Neuro: Alert and awake. Results Labs CBC and Chem 7: 09/17/21 20:06 09/17/21 20:06 Labs: Laboratory Results - last 24 hr 09/17/21 09/17/21 09/17/21 20:06 20:06 20:06 MCV 90.3 MCH 29.8 MCHC 33.0 RDW 12.4 Plt Count 175 MPV 9.6 Immature Gran % (Auto) 0.2 Neut % (Auto) 57.9 Lymph % (Auto) 33.6 [place] % (Auto) 7.3 Eos % (Auto) 0.5 Baso % (Auto) 0.5 Lymph # (Auto) 3.0 [place] # (Auto) 0.7 Eos # (Auto) 0.0 Baso # (Auto) 0.0 Abs Immat Gran (auto) 0.02 Absolute Neuts (auto) 5.1 Absolute Nucleated RBC 0.000 Nucleated RBC % (auto) 0.0 Anion Gap 15 Estim Creat Clear Calc 91.5 Estimated GFR > 60 Random Glucose 139 H Calcium 10.0 D Total Bilirubin 0.4 AST 19 ALT 25 Alkaline Phosphatase 89 D Total Protein 7.2 Albumin 4.0 Lipase 38 Urine Color YELLOW Urine Appearance HAZY Urine pH 7.0 Ur Specific [place] 1.020 Urine Protein NEG Urine Glucose (UA) NEG Urine Ketones NEG Urine Blood NEG Urine Nitrite NEG Ur Leukocyte Esterase TRACE H Urine RBC 0 Urine WBC 0-2 Ur Squamous Epith Cells 1+ Urine Bacteria 1+ COVID-19 ([facility]INCESS) COVID-19 Clin Com 09/17/21 23:30 MCV MCH MCHC RDW Plt Count MPV Immature Gran % (Auto) Neut % (Auto) Lymph % (Auto) [place] % (Auto) Eos % (Auto) Baso % (Auto) Lymph # (Auto) [place] # (Auto) Eos # (Auto) Baso # (Auto) Abs Immat Gran (auto) Absolute Neuts (auto) Absolute Nucleated RBC Nucleated RBC % (auto) Anion Gap Estim Creat Clear Calc Estimated GFR Random Glucose Calcium Total Bilirubin AST ALT Alkaline Phosphatase Total Protein Albumin Lipase Urine Color Urine Appearance Urine pH Ur Specific [place] Urine Protein Urine Glucose (UA) Urine Ketones Urine Blood Urine Nitrite Ur Leukocyte Esterase Urine RBC Urine WBC Ur Squamous Epith Cells Urine Bacteria COVID-19 ([facility]INCESS) Negative COVID-19 Clin Com See Note Imaging Radiologist's Impressions: Impressions Abdomen/Pelvis CT 09/18/21 00:13 IMPRESSION: Colonic distention and significant amount of stool burden suggesting constipation. Chronic hepatosplenomegaly, redemonstration of hepatic steatosis. Assessment and Plan (1) Nausea & vomiting: Status: Acute 61-year-old female with a past medical history of hypertension, hyperlipidemia, diabetes, diabetic neuropathy, anxiety, depression, chronic back pain, GERD, obesity, TEA on CPAP, insomnia, tobacco dependence, ADHD presented to the hospital today with a chief complaint of nausea vomiting and abdominal discomfort. Nausea/vomiting /abdominal discomfort: Improving Will keep the patient on Reglan Supportive care Will also obtain gastric emptying study to check for any gastroparesis given history of diabetes. Constipation: Bowel regimen History of diabetes: Insulin sliding scale history of opiate dependence: Patient on Suboxone. Addiction Medicine consult. For all other chronic conditions, home medications will be continued, pending med rec. DVT prophylaxis: Lovenox Code status: Full code Quality Stroke Does the patient have a stroke diagnosis?: No VTE Prior VTE?: No VTE Risk Level:: Medical - moderate - high VTE Device Contraindication: Treatment Not Indicated VTE Drug Contraindication: N/A - Med Ordered
[2021-09-18 08:09] VITALS: BP 122/78; PULSE 72; RESP 14; TEMP 36.9; O2SAT 92
[2021-09-18 08:17] LABS: Glucose, Whole Blood 121 mg/dL (60-115)
--- NOTE | 2021-09-18 08:42 | PHA.MEDREC ---
Pharmacy Consult ? Medication Reconciliation Pharmacy has completed the medication reconciliation.
[2021-09-18] MEDS: Gabapentin 400 MG CAPSULE 800 MG PO ×2 (10:10→15:41)
[2021-09-18] MEDS: Amphetamine Mixed Salts 10 MG TABLET 30 MG PO (10:10)
[2021-09-18] MEDS: busPIRone HCl 10 MG TABLET PO (10:11)
--- NOTE | 2021-09-18 11:39 | MHC.RECOVSUP ---
Recovery Support note: Patient is a 61 year old Lithuanian speaking female who presented to [facility] due to vomiting. This marketing underwriter met with patient to discuss Suboxone. Patient reports she last took her Suboxone yesterday and that she has not taking any opioids or illicit substances. Discussed case with Jessica RADFORD and patient's attending, plan for patient to resume Suboxone while inpatient.
[2021-09-18] MEDS: Buprenorphine/Naloxone 8/2 mg FILM 2 FILM SUBLINGUAL (15:41)
[2021-09-18] MEDS: Heparin Sodium,Porcine 5,000 UNIT/ML VIAL 5000 UNIT SUBCUT (15:41)
[2021-09-18] MEDS: Acetaminophen 325 MG TABLET 650 MG PO (15:41)
[2021-09-18 16:00] VITALS: BP 171/63; PULSE 78; RESP 20; TEMP 37.1; O2SAT 97
[2021-09-18 16:03] LABS: Glucose, Whole Blood 114 mg/dL (60-115)
--- NOTE | 2021-09-18 17:33 | PM.DS ---
DS: Providers Provider Date of Service: 09/18/21 Date of admission: 09/18/21 06:00 Primary care physician: Melissa Topete MD Consults: 09/18/21 06:00 Addiction Medicine Routine Consulting Provider: Kitty Holden Reason for consultation: pt on suboxone DS: Diagnosis Discharge Diagnosis (1) Nausea & vomiting: Status: Acute DS: Summary Hospital Course Hospital Course: Chief Complaint:? nausea/vomiting ?61-year-old female with a past medical history of hypertension, hyperlipidemia, diabetes, diabetic neuropathy, anxiety, depression, chronic back pain, GERD, obesity, TEA on CPAP, insomnia, tobacco dependence, ADHD presented to the hospital today with a chief complaint of nausea vomiting and abdominal discomfort. Patient reports that the past 1 day she has been having nausea and vomiting; had multiple episodes of vomiting; denies any blood in the vomitus.? Denies any concerns for food poisoning.? Also complains of abdominal discomfort.? Denies any diarrhea.? Denies any chest pain or palpitations.? Denies any history of cannabis use.? Reports that she is on Suboxone.? Review of all other systems is negative except mentioned above ER course: Per ER team patient noted a mild abdominal discomfort; CT scan showed constipation; labs essentially benign; given Zofran and Reglan with no significant improvement.? Decided to admit to the hospital for observation. ? Patient was given enema Hospital course: She presented with nausea and vomitting. CT of abdomen and pelvis showed no acute finding other than constipation. She was admitted for diabetes gastroparesis and treated conservatively with antiemetics, enema for constipation, she has had BM, nausea and vomitting have resolved and her diet was advanced and is tolerating. She will be discharged with Zofran PRN for n/v, Bisacodyl and Colace for constipation and encourage to drink plenty of fluid and high fiber diet Time Spent with Patient Time attestation: Total time spent providing and/or coordinating discharge services: Discharge coordination time: Greater than 30 minutes Quality: Safe Use of Opioids Does Pt have an Active Cancer Diagnosis on the Problem List?: No Quality: Stroke Does the patient have a stroke diagnosis?: No Physical Exam Vital Signs: Vital Signs: Last Vital Signs Temp 98.7 F 09/18/21 16:00 Pulse 78 09/18/21 16:00 Resp 20 09/18/21 16:00 BP 171/63 H 09/18/21 16:00 Pulse Ox 97 09/18/21 16:00 BMI result Body Mass Index 37.8 DS: Data Data Completed and Pending Labs on day of discharge: Laboratory Results - last 24 hr 09/17/21 09/17/21 09/17/21 20:06 20:06 20:06 WBC 8.9 RBC 4.96 Hgb 14.8 Hct 44.8 MCV 90.3 MCH 29.8 MCHC 33.0 RDW 12.4 Plt Count 175 MPV 9.6 Immature Gran % (Auto) 0.2 Neut % (Auto) 57.9 Lymph % (Auto) 33.6 [place] % (Auto) 7.3 Eos % (Auto) 0.5 Baso % (Auto) 0.5 Lymph # (Auto) 3.0 [place] # (Auto) 0.7 Eos # (Auto) 0.0 Baso # (Auto) 0.0 Abs Immat Gran (auto) 0.02 Absolute Neuts (auto) 5.1 Absolute Nucleated RBC 0.000 Nucleated RBC % (auto) 0.0 Sodium 137 Potassium 4.2 Chloride 98 Carbon Dioxide 28 Anion Gap 15 BUN 7 L Creatinine 0.76 Estim Creat Clear Calc 91.5 Estimated GFR > 60 POC Glucose Random Glucose 139 H Calcium 10.0 D Total Bilirubin 0.4 AST 19 ALT 25 Alkaline Phosphatase 89 D Total Protein 7.2 Albumin 4.0 Lipase 38 Urine Color YELLOW Urine Appearance HAZY Urine pH 7.0 Ur Specific [place] 1.020 Urine Protein NEG Urine Glucose (UA) NEG Urine Ketones NEG Urine Blood NEG Urine Nitrite NEG Ur Leukocyte Esterase TRACE H Urine RBC 0 Urine WBC 0-2 Ur Squamous Epith Cells 1+ Urine Bacteria 1+ COVID-19 ([facility]) COVID-19 Clin Com 09/17/21 09/18/21 09/18/21 23:30 08:05 15:35 WBC RBC Hgb Hct MCV MCH MCHC RDW Plt Count MPV Immature Gran % (Auto) Neut % (Auto) Lymph % (Auto) [place] % (Auto) Eos % (Auto) Baso % (Auto) Lymph # (Auto) [place] # (Auto) Eos # (Auto) Baso # (Auto) Abs Immat Gran (auto) Absolute Neuts (auto) Absolute Nucleated RBC Nucleated RBC % (auto) Sodium Potassium Chloride Carbon Dioxide Anion Gap BUN Creatinine Estim Creat Clear Calc Estimated GFR POC Glucose 121 H 114 Random Glucose Calcium Total Bilirubin AST ALT Alkaline Phosphatase Total Protein Albumin Lipase Urine Color Urine Appearance Urine pH Ur Specific [place] Urine Protein Urine Glucose (UA) Urine Ketones Urine Blood Urine Nitrite Ur Leukocyte Esterase Urine RBC Urine WBC Ur Squamous Epith Cells Urine Bacteria COVID-19 ([facility]) Negative COVID-19 Clin Com See Note Discharge Plan Discharge Anticipated Discharge Date/Time: 09/18/21 17:27 Patient Disposition: Home, Self-Care Discharge Diagnosis: Diabetes gastroparesis, Constipation Referrals: Melissa Topete MD [Primary Care Provider] - Discharge Medications: New ondansetron 4 mg tablet,disintegrating 4 mg PO BEDTIME 4 Days Qty: 4 0RF bisacodyl 5 mg Tablet,Delayed Release (Dr/Ec) 10 mg PO BEDTIME Qty: 60 0RF docusate sodium [Colace] 100 mg capsule 100 mg PO BID Qty: 60 0RF Continued atorvastatin 10 mg tablet 10 mg PO BEDTIME 0RF doxepin 25 mg capsule 25 - 50 mg PO BEDTIME 0RF dextroamphetamine-amphetamine 30 mg tablet 30 mg PO BID@0900,1300 0RF risperidone [Risperdal] 2 mg tablet 2 mg PO BEDTIME 0RF gabapentin 800 mg tablet 800 mg PO TID 0RF trazodone 100 mg tablet 300 mg PO BEDTIME 0RF cephalexin 500 mg capsule 500 mg PO Q12H 0RF metformin 1,000 mg tablet 500 mg PO BIDWM 0RF buspirone 10 mg tablet 10 mg PO BID 0RF divalproex 500 mg tablet extended release 24 hr 1,500 mg PO QPM 0RF sulindac 200 mg tablet 200 mg PO BID PRN (Reason: pain) 0RF buprenorphine-naloxone 8-2 mg film 2 strip sublingual DAILY 0RF Discharge Orders: Discharge Order (Routine); Ordered 09/18/21 Ordered By: Alfred Terrell Diet: advance to usual diet and diabetic diet Activity on Discharge: As tolerated Stand Alone Forms: Patient Portal Discharge page Care Plan Goals: control of diabetes and gastroparesis Health Concerns: diabetes with diabetes complications Plan of Treatment: Take zofran as directed for nausea or vomitting, follow up with your Doctor in a week, call for appointment Take Bisacodyl and colace for consitpation, also drink plenty of fluid and eat high fiber diet or take over the counter Metamucil Assessment: as above Patient Instructions: Gastroparesis (ED)
[2021-09-18 17:46] VITALS: BP 124/56; PULSE 85; RESP 20; TEMP 37; O2SAT 99
--- NOTE | 2021-09-18 17:46 | PC.NURSE ---
pt brought up from ED overflow. said if pt eats dinner without vomiting she could be discharged home. Pt tolerated dinner with no vomiting. Dr Terrell made aware. BP taken 124/56 pt reports last BM 09/[address] Terrell made aware and discharge order put in.
== END 2021-09-18 18:03 | disposition home or self-care (01) ==
LOC: HO.ED 09-18 01:38 → HO.EDOVER 09-18 06:07 → HO.S3 09-18 14:27
PROVIDERS: Admitting Provider Hospitalist; Emergency Provider Emergency Medicine Emergency Medical Services; PCP Internal Medicine; Visit Provider Internal Medicine
DX: R11.2 Nausea with vomiting, unspecified (principal); R10.9 Unspecified abdominal pain; E11.43 Type 2 diabetes mellitus with diabetic autonomic (poly)neuropathy; E11.65 Type 2 diabetes mellitus with hyperglycemia; E11.42 Type 2 diabetes mellitus with diabetic polyneuropathy; R16.0 Hepatomegaly, not elsewhere classified; K76.0 Fatty (change of) liver, not elsewhere classified; K91.5 Postcholecystectomy syndrome; M62.08 Separation of muscle (nontraumatic), other site; I10 Essential (primary) hypertension; G89.29 Other chronic pain; M54.9 Dorsalgia, unspecified; K59.00 Constipation, unspecified; K21.9 Gastro-esophageal reflux disease without esophagitis; J44.9 Chronic obstructive pulmonary disease, unspecified; E66.01 Morbid (severe) obesity due to excess calories; G47.33 Obstructive sleep apnea (adult) (pediatric); U07.0 Vaping-related disorder; F17.210 Nicotine dependence, cigarettes, uncomplicated; F41.8 Other specified anxiety disorders; F90.9 Attention-deficit hyperactivity disorder, unspecified type; Z68.37 Body mass index [BMI] 37.0-37.9, adult; Z20.822 Contact with and (suspected) exposure to COVID-19; Z90.49 Acquired absence of other specified parts of digestive tract; Z90.710 Acquired absence of both cervix and uterus; Z88.2 Allergy status to sulfonamides; Z88.7 Allergy status to serum and vaccine; Z88.8 Allergy status to other drugs, medicaments and biological substances; Z91.040 Latex allergy status; Z99.89 Dependence on other enabling machines and devices; Z79.891 Long term (current) use of opiate analgesic; Z79.84 Long term (current) use of oral hypoglycemic drugs; Z79.899 Other long term (current) drug therapy
CPT/HCPCS: 36415; 74176; 80053; 81001; 82947; 83690; 85025; 87635; 93005; 96361; 96372; 96374; 96375; 96376; 99218; 99285; J2405; J2765

== ENCOUNTER 2021-10-12 10:06 | Day surgery (SDC) | payer MEDICARE, MEDICAID, SELFPAY ==
--- NOTE | 2021-10-11 10:38 | P.CONAN_ITS ---
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 (Acute) BMI 37.0-37.9, adult (Acute) History of pneumonia (Acute) Vitamin B12 deficiency (Acute) Vitamin D deficiency (Acute) Insomnia (Acute) ADHD (Acute) BMI 38.0-38.9,adult (Acute) Community acquired bilateral lower lobe pneumonia (Acute) Obesity due to excess calories (Acute) DM2 (diabetes mellitus, type 2) (Acute) Injury of left heel (Acute) UTI (urinary tract infection) (Acute) Cough (Acute) Cigarette smoker motivated to quit (Acute) Type 2 diabetes mellitus without complication, with no history of insulin use (Acute) Dysuria (Acute) Left shoulder pain (Acute) Patchy loss of hair (Acute) Dyslipidemia (Acute) History of lumbar spinal fusion (Acute) Low back pain (Acute) Smoker unmotivated to quit (Acute) Diabetic neuropathy (Acute) Obesity (Acute) Lumbar degenerative disc disease (Acute) GERD (gastroesophageal reflux disease) (Acute) Mixed incontinence urge and stress (Acute) TEA on CPAP (Acute) Depression (Acute) COPD (chronic obstructive pulmonary disease) (Acute) Past Medical History Medical History (Updated 10/11/21 @ 10:40 by Ana Watkins NP) ADHD COPD (chronic obstructive pulmonary disease) Depressive 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 Diabetic neuropathy DM2 (diabetes mellitus, type 2) Dyslipidemia GERD (gastroesophageal reflux disease) Nausea Opiate addiction TEA on CPAP Family History Family History Father Aneurysm Surgical History Surgical History H/O colonoscopy H/O tubal ligation History of lumbar fusion History of partial hysterectomy Hx of cholecystectomy Social History Social History Household Members: Children Household Members Other:: daughter Housing: House Alcohol intake: never Patient Tobacco Use Status: Current everyday Tobacco user Cigarette Packs Per Day: 0.5 Cigarettes Per Day: 10 e-Cigarette/Vaping Use: Currently Using Second Hand Smoke Exposure: Yes Current occupational status: unemployed Cognitive needs: Yes (walker) Hearing needs: No Vision needs: Yes (glasses) Meds Allergies Allergy/AdvReac Type Severity Reaction Status Date / Time bupropion [From WELLBUTRIN] Allergy Intermediate ITCHING Verified 09/17/21 19:59 influenza virus vaccine, Allergy Unknown RASH Verified 09/17/21 19:59 specific [FLU VACCINE] latex Allergy Unknown rash Verified 09/17/21 19:59 Sulfa (Sulfonamide Allergy Unknown UNKNOWN, Verified 09/17/21 19:59 Antibiotics) itch, itching Home Medications Medication Instructions Recorded Confirmed Last Taken Type atorvastatin 10 mg tablet 10 mg PO BEDTIME 09/18/21 10/04/21 Unknown History buprenorphine 8 mg-naloxone 2 mg 2 strip sublingual DAILY 09/18/21 10/04/21 Unk nown History sublingual film buspirone 10 mg tablet 10 mg PO BID 09/18/21 10/04/21 Unknown History cephalexin 500 mg capsule 500 mg PO Q12H 09/18/21 10/04/21 Unknown History dextroamphetamine-amphetamine 30 30 mg PO BID@0900,1300 09/18/21 10/04/21 Unknown History mg tablet divalproex 500 mg tablet,extended 1,500 mg PO QPM 09/18/21 10/04/21 Unknown History release 24 hr doxepin 25 mg capsule 25 - 50 mg PO BEDTIME 09/18/21 10/04/21 Unknown History gabapentin 800 mg tablet 800 mg PO TID 09/18/21 10/04/21 Unknown History metformin 1,000 mg tablet 500 mg PO BIDWM 09/18/21 10/04/21 Unknown History risperidone 2 mg tablet (Risperdal) 2 mg PO BEDTIME 09/18/21 10/04/21 Unknown History sulindac 200 mg tablet 200 mg PO BID PRN pain 09/18/21 10/04/21 Unknown History trazodone 100 mg tablet 300 mg PO BEDTIME 09/18/21 10/04/21 Unknown History albuterol sulfate 90 mcg/actuation 2 puff PO QID PRN wheezing 10/04/21 10/04/21 Unknown History aerosol inhaler (Ventolin HFA) Exam Exam Date and Time: October 11, 2021 1038 Pertinent Lab Results Pertinent Lab Results: Laboratory Tests 09/17/21 09/17/21 20:06 20:06 WBC 8.9 Hgb 14.8 Hct 44.8 Plt Count 175 Sodium 137 Potassium 4.2 Chloride 98 Carbon Dioxide 28 BUN 7 L Creatinine 0.76 Narrative Narrative: EKG 08/2021 Vent. Rate : 081 BPM ? ? Atrial Rate : 081 BPM ?? P-R Int : 130 ms? QRS Dur : 068 ms ? ? QT Int : 328 ms ? ? ? P-R-T Axes : 063 069 057 degrees ?? QTc Int : 381 ms ? Normal sinus rhythm Normal ECG When compared with ECG of 28-JUL-2021 17:52, No significant change was found Assessment and Plan Assessment Anesthesia Assessment: Chart Reviewed
--- NOTE | ~2021-10-12 | FL_ITS ---
EXAMINATION: XR FLUOROSCOPY WITH IMAGES CLINICAL INFORMATION: Intra-articular right hip injection. COMPARISON: None. TECHNIQUE: FLUOROSCOPY PERFORMED BY: Dr. Ludin De. FLUOROSCOPY TIME: 0.2 minutes. DAP: 3.60 Gy-cm2 FLUOROSCOPIC IMAGES: 1 FINDINGS: Single AP image demonstrates contrast within the right hip joint space with needle over the superior aspect of the hip joint. Spurring of the greater trochanter is noted. FL/FL guidance in OR IMPRESSION: Intra-articular injection for pain management procedure.
[2021-10-12 10:21] VITALS: BMI 37.8
--- NOTE | 2021-10-12 10:29 | PC.NURSE ---
cough. smoker. lungs dim and clear throughout.
[2021-10-12 10:40] VITALS: BP 140/80; PULSE 80; RESP 16; TEMP 36.2; O2SAT 96
--- NOTE | 2021-10-12 10:50 | P.CONAN_ITS ---
HPI - Anesthesia Eval Pulmonary Results: No Data to Display [facility] Active Problems Active Problems: All Active Problems (Updated 10/11/21 @ 10:40 by Ana Watkins NP) Osteoarthritis, hip, bilateral (Acute) Bilateral hip pain (Acute) Lumbar spondylosis (Acute) Bilateral groin pain (Acute) BMI 37.0-37.9, adult (Acute) History of pneumonia (Acute) Vitamin B12 deficiency (Acute) Vitamin D deficiency (Acute) Insomnia (Acute) BMI 38.0-38.9,adult (Acute) Community acquired bilateral lower lobe pneumonia (Acute) Obesity due to excess calories (Acute) Injury of left heel (Acute) UTI (urinary tract infection) (Acute) Cough (Acute) Cigarette smoker motivated to quit (Acute) Type 2 diabetes mellitus without complication, with no history of insulin use (Acute) Dysuria (Acute) Left shoulder pain (Acute) Patchy loss of hair (Acute) History of lumbar spinal fusion (Acute) Low back pain (Acute) Smoker unmotivated to quit (Acute) Obesity (Acute) Lumbar degenerative disc disease (Acute) Mixed incontinence urge and stress (Acute) Depression (Acute) Past Medical History Medical History ADHD COPD (chronic obstructive pulmonary disease) Depressive 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 Diabetic neuropathy DM2 (diabetes mellitus, type 2) Dyslipidemia GERD (gastroesophageal reflux disease) Nausea Opiate addiction TEA on CPAP Family History Family History Father Aneurysm Family history of problems with anesthesia: No Surgical History Surgical History H/O colonoscopy H/O tubal ligation History of lumbar fusion History of partial hysterectomy Hx of cholecystectomy History of Problems with Anesthesia: No Social History Social History Household Members: Children Household Members Other:: daughter Housing: House Alcohol intake: never Patient Tobacco Use Status: Current everyday Tobacco user Tobacco use type: Cigarette Cigarette Packs Per Day: 0.5 Cigarettes Per Day: 6 e-Cigarette/Vaping Use: Currently Using Second Hand Smoke Exposure: Yes Use of substances other than those prescribed or required for medical reasons: No Are you DNR?: No Advance Directives: No Advance Directives Information Provided: Yes Recently lost weight without trying: Yes How much weight loss: 14-23 pounds Nutrition Risks: No Nutritional Risk Patient : No Current occupational status: unemployed Cognitive needs: Yes (walker) Hearing needs: No Vision needs: Yes (glasses) Meds Allergies Allergy/AdvReac Type Severity Reaction Status Date / Time bupropion [From WELLBUTRIN] Allergy Intermediate ITCHING Verified 09/17/21 19:59 influenza virus vaccine, Allergy Unknown RASH Verified 09/17/21 19:59 specific [FLU VACCINE] latex Allergy Unknown rash Verified 09/17/21 19:59 Sulfa (Sulfonamide Allergy Unknown UNKNOWN, Verified 09/17/21 19:59 Antibiotics) itch, itching Active Medications: Current Medications Albuterol Sulfate (Albuterol Sulfate (0.083%) 2.5 Mg/3 Ml Vial.Neb) 2.5 mg INHALE ONCE PRN PRN Reason: Shortness of Breath/Wheezing Fentanyl (Fentanyl Citrate/Pf 100 Mcg/2 Ml Vial) 25 mcg IVPUSH Q5M PRN; Protocol PRN Reason: Pain, Moderate (Pain Scale 4-6 Lactated Ringer's (Lr) 1,000 mls @ 100 mls/hr IVCONT .Q10H RAO Ondansetron HCl (Ondansetron Hcl 4 Mg/2 Ml Vial) 4 mg IVPUSH ONCE PRN PRN Reason: Nausea and Vomiting Oxycodone HCl (Oxycodone Hcl Immed Release 5 Mg Tablet) 5 mg PO ONCE PRN PRN Reason: Pain, Severe (Pain Scale 7-10) Home Medications Medication Instructions Recorded Confirmed Last Taken Type atorvastatin 10 mg tablet 10 mg PO BEDTIME 09/18/21 10/04/21 Unknown History buprenorphine 8 mg-naloxone 2 mg 2 strip sublingual DAILY 09/18/21 10/04/21 Unknown History sublingual film buspirone 10 mg tablet 10 mg PO BID 09/18/21 10/04/21 Unknown History cephalexin 500 mg capsule 500 mg PO Q12H 09/18/21 10/04/21 Unknown History dextroamphetamine-amphetamine 30 30 mg PO BID@0900,1300 09/18/21 10/04/21 Unknown History mg tablet divalproex 500 mg tablet,extended 1,500 mg PO QPM 09/18/21 10/04/21 Unknown History release 24 hr doxepin 25 mg capsule 25 - 50 mg PO BEDTIME 09/18/21 10/04/21 Unknown History gabapentin 800 mg tablet 800 mg PO TID 09/18/21 10/04/21 10/12/21 History metformin 1,000 mg tablet 500 mg PO BIDWM 09/18/21 10/04/21 Unknown History risperidone 2 mg tablet (Risperdal) 2 mg PO BEDTIME 09/18/21 10/04/21 Unknown History sulindac 200 mg tablet 200 mg PO BID PRN pain 09/18/21 10/04/21 Unknown History trazodone 100 mg tablet 300 mg PO BEDTIME 09/18/21 10/04/21 Unknown History albuterol sulfate 90 mcg/actuation 2 puff PO QID PRN wheezing 10/04/21 10/04/21 10/12/21 History aerosol inhaler (Ventolin HFA) Exam Exam Date and Time: October 12, 2021 1050 Height,Weight and Vital Signs: Height 5 ft 4 in Weight 99.79 kg Last Vital Signs Temp 97.2 F 10/12/21 10:40 Pulse 80 10/12/21 10:40 Resp 16 10/12/21 10:40 BP 140/80 H 10/12/21 10:40 Pulse Ox 96 10/12/21 10:40 O2 Del Method 10/12/21 10:40 Airway Mallampati Class: III TM Dist: >3cm Neck ROM: Full Partial: Lower Loose/Missing/Broken Teeth: Yes and Lower Heart: rrr Lungs: clear Assessment and Plan Final Anesthetic Review Family History of Problems with Anesthesia: No History of Problems with Anesthesia: No NPO: Yes ASA Class: III Final Preanesthetic Review: No Changes in Pt Med Stat, Meds/Allgs Chart Reviewed, Consent Obtained/Reviewed and Anes Risks/Benef Reviewed Patient Risk: High Procedure Risk: Low Anesthetic Plan Anesthetic Plan: MAC: Disposition: Standard PACU
--- NOTE | 2021-10-12 10:57 | PC.NURSE ---
attempted two iv insertions with no success. patient agitated. anesthesia by bedside attempting iv insertion with ultrasound. refusing ac and bilateral hand insertion. wants forearm only.
[2021-10-12] MEDS: Lactated Ringers 1,000 ML 100 ML IVCONT (11:13)
[2021-10-12 11:15] LABS: Glucose, Whole Blood 157 mg/dL (60-115)
--- NOTE | 2021-10-12 11:46 | MHC.SHP ---
Pre-Procedural Eval Section A Date of Service: 10/12/21 Section B Chief Complaint: osteoarthritis Details of Present Illness: right hip joint arthritis Relevant Family History (Specify if Yes): No Relevant Social History: Other (specify) Present Medications: None Medical History: No relevant PMH History of Previous Operations: No relevant previous surgery Allergies: Allergies Allergy/AdvReac Type Severity Reaction Status Date / Time bupropion [From WELLBUTRIN] Allergy Intermediate ITCHING Verified 09/17/21 19:59 influenza virus vaccine, Allergy Unknown RASH Verified 09/17/21 19:59 specific [FLU VACCINE] latex Allergy Unknown rash Verified 09/17/21 19:59 Sulfa (Sulfonamide Allergy Unknown UNKNOWN, Verified 09/17/21 19:59 Antibiotics) itch, itching Review of Systems Sugical H&P ROS: Negative: Constitution, Cardiovascular, Respiratory, Neurological, Psychiatric, Hem-Onc, Allergic/Immunologic, Gastrointestinal, Genitourinary, Musculoskeletal, Integumentary, Endocrine and Eyes/Ears/Nose/Throat Exam Surgical H&P Exam: Normal: HEENT, Normal: Heart, Normal: Lungs, Normal: Extremities, Normal: Abdomen, Normal: Skin and Normal: Neurological Plan Diagnosis/Plan: Change I have reviewed the history and physical and performed a pertinent physical examination on my patient. I will perform right hip steroid injection today. The patient needs to be scheduled for the left hip joint injectionon another day.
--- NOTE | 2021-10-12 12:09 | P.BOP_ITS ---
Brief Operative Note Date of Service: 10/12/21 Pre-op diagnosis: Osteoarthritis right hip Post-op diagnosis: same Procedure: right hip steroid injection Implants: none Surgeon: Ludin De MD Anesthesia: MAC Was an Cottage Supervisor used for this Procedure?: No Estimated blood loss (mL): 0 Pathology: none sent Condition: stable Disposition: PACU
--- NOTE | 2021-10-12 12:11 | W.PM.OPN ---
Operative Note Operative Note Date of Service: 10/12/21 Narrative: after obtaining informed consent the patient was brought to the operating room where she was positioned in left lateral decubitus position on the operating table. [employer] monitors were applied and patient was was not sedated. Time-out was performed delineating correct site and side of the procedure name and date of of the patient risk of fire needs for antibiotics. The patient is lateral hip and upper thigh were prepped and ChloraPrep and draped with sterile towels. C-arm was brought of the opting field and picture of the smaller femoral head was mated target of the injection. The projection of the trochanter to the skin was injected with small amount of lidocaine 1%. After that 22 gauge 5 in needle was inserted through the skin and started to advance to were the right hip on anterior posterior and lateral intermittent views. When tip of the needle on anterior posterior view entered the silhouette of the hip joint injection of the contrast was performed demonstrating arthrogram. After that injection solution of bupivacaine 0.5% mixed with Kenalog 40 mg was injected into the joint. Upon completion of the injection needle was withdrawn sterile Band-Aid was applied. Patient tolerated procedure well she was taking outside of the operating room to recovery room where she recovered uneventfully.
[2021-10-12 12:17] VITALS: BP 107/44; PULSE 74; RESP 16; TEMP 36.6; O2SAT 92
[2021-10-12 12:32] VITALS: BP 120/60; PULSE 78; RESP 18; O2SAT 92
[2021-10-12 12:47] VITALS: BP 129/55; PULSE 74; RESP 16; O2SAT 94
[2021-10-12 13:02] VITALS: BP 121/51; PULSE 67; RESP 16; O2SAT 93
[2021-10-12 13:17] VITALS: BP 126/53; PULSE 83; RESP 18; TEMP 36.6; O2SAT 95
== END 2021-10-12 13:47 | disposition home or self-care (01) ==
PROVIDERS: PCP Internal Medicine; Visit Provider Anesthesiology
PROC: (CPT 20610; principal; 2021-10-12 11:30)
DX: M16.0 Bilateral primary osteoarthritis of hip (principal); M25.551 Pain in right hip; M25.552 Pain in left hip; G89.4 Chronic pain syndrome; M47.816 Spondylosis without myelopathy or radiculopathy, lumbar region; M51.36 Other intervertebral disc degeneration, lumbar region; M54.9 Dorsalgia, unspecified; R26.89 Other abnormalities of gait and mobility; Z98.1 Arthrodesis status; F11.20 Opioid dependence, uncomplicated; G47.33 Obstructive sleep apnea (adult) (pediatric); F90.9 Attention-deficit hyperactivity disorder, unspecified type; E11.40 Type 2 diabetes mellitus with diabetic neuropathy, unspecified; E11.65 Type 2 diabetes mellitus with hyperglycemia; F17.210 Nicotine dependence, cigarettes, uncomplicated; Z88.2 Allergy status to sulfonamides; Z88.8 Allergy status to other drugs, medicaments and biological substances; Z91.040 Latex allergy status; Z88.7 Allergy status to serum and vaccine
CPT/HCPCS: 20610; 82947; J2250; J3010; J3300; Q9966

== ENCOUNTER → 2021-10-13 08:27 | Outpatient (BNVA) | payer MEDICARE, MEDICAID, SELFPAY | PROVIDERS: PCP Internal Medicine; Visit Provider Surgery | DX: E66.01 Morbid (severe) obesity due to excess calories (principal); Z68.41 Body mass index [BMI] 40.0-44.9, adult | CPT/HCPCS: Q3014 ==

== ENCOUNTER 2021-10-17 11:41 | Outpatient (REF) | payer MEDICARE, MEDICAID, SELFPAY ==
[2021-10-17 12:11] LABS: MANUAL DIFF FLAG NO
[2021-10-17 12:34] LABS: Basophils Percent Auto 0.4 % (0-2); Eosinophils Percent Auto 0.5 % (0-4); Hematocrit 46.9 % (37.0-47.0); Imm Gran Abs Auto 0.06 X10*3/uL (0.00-0.03); Imm Gran Pct Auto 0.7 % (0.0-0.4); Lymphocytes Absolute Auto 3.7 X10*3/uL (1.2-4.9); Lymphocytes Percent Auto 43.9 % (20-40); Mean Corpuscular Hemoglobin 28.9 pg (27.0-33.0); Mean Corpuscular Volume 90.4 fL (80.0-98.0); Mean Platelet Volume 9.6 fL (9.4-12.3); Monocytes Absolute Auto 0.5 X10*3/uL (0.1-1.2); Monocytes Percent Auto 6.2 % (2-11); Neutrophils Absolute Auto 4.1 x10*3/uL (2.0-8.3); Neutrophils Percent Auto 48.3 % (45-73); Platelet Count 176 X10*3/uL (160-400); Red Blood Count 5.19 X10*6/uL (4.20-5.50); Red Cell Distribution Width 12.6 % (11.0-16.0); White Blood Count 8.4 X10*3/uL (4.8-10.8)
[2021-10-17 12:39] LABS: INTERNATIONAL NORM RATIO 0.9 (0.9-1.1); Prothrombin Time 10.7 SEC (10.0-13.1)
[2021-10-17 12:42] LABS: Partial Thromboplastin Time 30.7 SEC (24.1-38.0)
[2021-10-17 12:54] LABS: Estimated Average Glucose 151 mg/dL; Hemoglobin A1c % 6.9 %
[2021-10-17 12:56] LABS: Alanine Aminotransferase 30 U/L (0-31); Albumin Level 4.1 g/dL (3.5-5.0); Alkaline Phosphatase 65 U/L (39-117); Anion Gap 14 (12-20); Aspartate Amino Transferase 30 U/L (5-31); Bilirubin Total 0.4 mg/dL (0.0-1.0); Blood Urea Nitrogen 15 mg/dL (9-16); Calcium 9.1 mg/dL (8.4-10.2); Carbon Dioxide 31 mmol/L (22-29); Chloride 100 mmol/L (96-108); Cholesterol 309 mg/dL; Estimated Glomerular Filt Rate > 60; Glucose Random 152 mg/dL (60-115); HDL Cholesterol 42 mg/dL; LDL Cholesterol Calculated 206 mg/dl; Potassium 4.1 mmol/L (3.3-5.1); Sodium 141 mmol/L (135-145); Total Protein 6.8 g/dL (6.5-8.0); Triglycerides 306 mg/dL
[2021-10-17 13:22] LABS: Insulin 17 uU/mL (2-29); TSH reflex Free T4 1.26 uIU/mL (0.32-4.0)
== END 2021-10-17 11:42 | disposition home or self-care (01) ==
LOC: HO.LAB 11:41
PROVIDERS: PCP Internal Medicine; Visit Provider Surgery
DX: E66.9 Obesity, unspecified (principal); E11.65 Type 2 diabetes mellitus with hyperglycemia; Z68.37 Body mass index [BMI] 37.0-37.9, adult
CPT/HCPCS: 36415; 80053; 80061; 83036; 83525; 84443; 85025; 85610; 85730; 86140

== ENCOUNTER 2021-10-24 08:33 | Inpatient (IN) | payer MEDICARE, MEDICAID, SELFPAY ==
[2021-10-13 14:05] VITALS: BMI 40.1
--- NOTE | 2021-10-20 08:30 | HO.ANESPROP2 ---
Documented by User: Ana Watkins NP 10/20/21 08:32 HPI - Anesthesia Eval Consult details Narrative: 61yo F for Gastrectomy Sleeve,EGD, Possible diaphragmatic hernia,possible ventral hernia,possible open Suboxone daily - instructed to decrease per Dr Luis ALFONSO Active Problems Active Problems: All Active Problems (Updated 10/13/21 @ 15:56 by Maximo Asencio MD) GERD (gastroesophageal reflux disease) (Acute) Osteoarthritis, hip, bilateral (Acute) Bilateral hip pain (Acute) Lumbar spondylosis (Acute) Bilateral groin pain (Acute) BMI 37.0-37.9, adult (Acute) History of pneumonia (Acute) Vitamin B12 deficiency (Acute) Vitamin D deficiency (Acute) Insomnia (Acute) BMI 38.0-38.9,adult (Acute) Community acquired bilateral lower lobe pneumonia (Acute) Obesity due to excess calories (Acute) Injury of left heel (Acute) UTI (urinary tract infection) (Acute) Cough (Acute) Cigarette smoker motivated to quit (Acute) Type 2 diabetes mellitus without complication, with no history of insulin use (Acute) Dysuria (Acute) Left shoulder pain (Acute) Patchy loss of hair (Acute) History of lumbar spinal fusion (Acute) Low back pain (Acute) Smoker unmotivated to quit (Acute) Obesity (Acute) Lumbar degenerative disc disease (Acute) Mixed incontinence urge and stress (Acute) Depression (Acute) Past Medical History Medical History ADHD Bilateral groin pain Cigarette smoker motivated to quit COPD (chronic obstructive pulmonary disease) Depression Depressive 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 Diabetes mellitus with hyperglycemia, without long-term current use of insulin Diabetic neuropathy DM2 (diabetes mellitus, type 2) Dyslipidemia Dysuria History of pneumonia Insomnia Left shoulder pain Lumbar degenerative disc disease Mixed incontinence urge and stress Nausea Obesity Obesity due to excess calories Opiate addiction TEA on CPAP Patchy loss of hair Smoker unmotivated to quit Type 2 diabetes mellitus without complication, with no history of insulin use Family History Family History Father Aneurysm Family history of problems with anesthesia: No Surgical History Surgical History H/O colonoscopy H/O tubal ligation History of lumbar fusion History of lumbar spinal fusion History of partial hysterectomy Hx of cholecystectomy History of Problems with Anesthesia: No Social History Social History Household Members: Children Household Members Other:: daughter Housing: House Are you a primary palliative care nurse to a significant other at home: No Do you presently have visiting nurse or other home services: No Alcohol intake: never Patient Tobacco Use Status: Current everyday Tobacco user Tobacco use type: Cigarette Cigarette Packs Per Day: 0.5 Cigarettes Per Day: 6 Smoked in Last 30 Days: Yes e-Cigarette/Vaping Use: Currently Using Patient Given Instructions on How to Stop Smoking: Yes Date Education Initiated: 10/13/21 Second Hand Smoke Exposure: Yes Have you been hit, kicked, punched, or otherwise hurt by someone within the past year? If so, by whom?: No Are you DNR?: No Advance Directives: No Advance Directives Information Provided: Yes (Mailed w/ instructions) Advance Directives on File: No Recently lost weight without trying: No Patient : No Current occupational status: unemployed Cognitive needs: Yes (walker) Hearing needs: No Vision needs: Yes (glasses) Meds Allergies Allergy/AdvReac Type Severity Reaction Status Date / Time bupropion [From WELLBUTRIN] Allergy Intermediate ITCHING Verified 10/13/21 15:59 influenza virus vaccine, Allergy Unknown RASH Verified 10/13/21 15:59 specific [FLU VACCINE] latex Allergy Unknown rash Verified 10/13/21 15:59 Sulfa (Sulfonamide Allergy Unknown UNKNOWN, Verified 10/13/21 15:59 Antibiotics) itch, itching Home Medications Medication Instructions Recorded Confirmed Last Taken Type atorvastatin 10 mg tablet 10 mg PO BEDTIME 09/18/21 10/13/21 Unknown History buprenorphine 8 mg-naloxone 2 mg 2 strip sublingual DAILY 09/18/21 10/13/21 Unknown History sublingual film buspirone 10 mg tablet 10 mg PO BID 09/18/21 10/13/21 Unknown History dextroamphetamine-amphetamine 30 30 mg PO BID@0900,1300 09/18/21 10/13/21 Unknown History mg tablet divalproex 500 mg tablet,extended 1,500 mg PO QPM 09/18/21 10/13/21 Unknown History release 24 hr doxepin 25 mg capsule 25 - 50 mg PO BEDTIME 09/18/21 10/13/21 Unknown History gabapentin 800 mg tablet 800 mg PO TID 09/18/21 10/13/21 10/12/21 History metformin 1,000 mg tablet 500 mg PO BIDWM 09/18/21 10/13/21 Unknown History risperidone 2 mg tablet (Risperdal) 2 mg PO BEDTIME 09/18/21 10/13/21 Unknown History sulindac 200 mg tablet 200 mg PO BID PRN pain 09/18/21 10/13/21 Unknown History trazodone 100 mg tablet 300 mg PO BEDTIME 09/18/21 10/13/21 Unknown History albuterol sulfate 90 mcg/actuation 2 puff PO QID PRN wheezing 10/04/21 10/13/21 10/12/21 History aerosol inhaler (Ventolin HFA) Exam Exam Date and Time: October 20, 2021 0830 Height,Weight and Vital Signs: Height 5 ft 2 in Weight 99.7 kg Pertinent Lab Results Pertinent Lab Results: Laboratory Tests 10/17/21 12:00 Blood Type B Positive Antibody Screen NEGATIVE Laboratory Tests 10/17/21 10/17/21 12:00 12:00 WBC 8.4 Hgb 15.0 Hct 46.9 Plt Count 176 Sodium 141 Potassium 4.1 Chloride 100 Carbon Dioxide 31 H BUN 15 D Creatinine 0.73 Narrative Narrative: EKG 08/2021 Vent. Rate : 081 BPM ? ? Atrial Rate : 081 BPM ?? P-R Int : 130 ms? QRS Dur : 068 ms ? ? QT Int : 328 ms ? ? ? P-R-T Axes : 063 069 057 degrees ?? QTc Int : 381 ms ? Normal sinus rhythm Normal ECG When compared with ECG of 28-JUL-2021 17:52, No significant change was found Assessment and Plan Assessment Anesthesia Assessment: Chart Reviewed Final Anesthetic Review Family History of Problems with Anesthesia: No History of Problems with Anesthesia: No Documented by User: Marie Pascual MD 10/24/21 11:21 [facility] Past Medical History Medical History ADHD Bilateral groin pain Cigarette smoker motivated to quit COPD (chronic obstructive pulmonary disease) Depression Depressive 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 Diabetes mellitus with hyperglycemia, without long-term current use of insulin Diabetic neuropathy DM2 (diabetes mellitus, type 2) Dyslipidemia Dysuria History of pneumonia Insomnia Left shoulder pain Lumbar degenerative disc disease Mixed incontinence urge and stress Nausea Obesity Obesity due to excess calories Opiate addiction TEA on CPAP Patchy loss of hair Smoker unmotivated to quit Type 2 diabetes mellitus without complication, with no history of insulin use Family History Family History Father Aneurysm Surgical History Surgical History H/O colonoscopy H/O tubal ligation History of lumbar fusion History of lumbar spinal fusion History of partial hysterectomy Hx of cholecystectomy Social History Social History Household Members: Children Household Members Other:: daughter Housing: House Are you a primary palliative care nurse to a significant other at home: No Do you presently have visiting nurse or other home services: No Alcohol intake: never Patient Tobacco Use Status: Current everyday Tobacco user Tobacco use type: Cigarette Cigarette Packs Per Day: 0.5 Cigarettes Per Day: 6 Smoked in Last 30 Days: Yes e-Cigarette/Vaping Use: Currently Using Patient Given Instructions on How to Stop Smoking: Yes Date Education Initiated: 10/13/21 Second Hand Smoke Exposure: Yes Have you been hit, kicked, punched, or otherwise hurt by someone within the past year? If so, by whom?: No Are you DNR?: No Advance Directives: No Advance Directives Information Provided: Yes (Mailed w/ instructions) Advance Directives on File: No Recently lost weight without trying: No Patient : No Current occupational status: unemployed Cognitive needs: Yes (walker) Hearing needs: No Vision needs: Yes (glasses) Meds Allergies Allergy/AdvReac Type Severity Reaction Status Date / Time bupropion [From WELLBUTRIN] Allergy Intermediate ITCHING Verified 10/13/21 15:59 influenza virus vaccine, Allergy Unknown RASH Verified 10/13/21 15:59 specific [FLU VACCINE] latex Allergy Unknown rash Verified 10/13/21 15:59 Sulfa (Sulfonamide Allergy Unknown UNKNOWN, Verified 10/13/21 15:59 Antibiotics) itch, itching Home Medications Medication Instructions Recorded Confirmed Last Taken Type atorvastatin 10 mg tablet 10 mg PO BEDTIME 09/18/21 10/13/21 Unknown History buprenorphine 8 mg-naloxone 2 mg 2 strip sublingual DAILY 09/18/21 10/13/21 Unknown History sublingual film buspirone 10 mg tablet 10 mg PO BID 09/18/21 10/13/21 Unknown History dextroamphetamine-amphetamine 30 30 mg PO BID@0900,1300 09/18/21 10/13/21 Unknown History mg tablet divalproex 500 mg tablet,extended 1,500 mg PO QPM 09/18/21 10/13/21 Unknown History release 24 hr doxepin 25 mg capsule 25 - 50 mg PO BEDTIME 09/18/21 10/13/21 Unknown History gabapentin 800 mg tablet 800 mg PO TID 09/18/21 10/13/21 10/12/21 History metformin 1,000 mg tablet 500 mg PO BIDWM 09/18/21 10/13/21 Unknown History risperidone 2 mg tablet (Risperdal) 2 mg PO BEDTIME 09/18/21 10/13/21 Unknown History sulindac 200 mg tablet 200 mg PO BID PRN pain 09/18/21 10/13/21 Unknown History trazodone 100 mg tablet 300 mg PO BEDTIME 09/18/21 10/13/21 Unknown History albuterol sulfate 90 mcg/actuation 2 puff PO QID PRN wheezing 10/04/21 10/13/21 10/12/21 History aerosol inhaler (Ventolin HFA) Exam Height,Weight and Vital Signs: Height 5 ft 2 in Weight 99.7 kg Vital Signs Temp Pulse Resp BP Pulse Ox O2 Del Method 10/24/21 08:52 97.9 F 90 18 125/69 94 Room Air Pertinent Lab Results Pertinent Lab Results: Laboratory Tests 10/17/21 12:00 Blood Type B Positive Antibody Screen NEGATIVE Laboratory Tests 10/17/21 10/17/21 12:00 12:00 WBC 8.4 Hgb 15.0 Hct 46.9 Plt Count 176 Sodium 141 Potassium 4.1 Chloride 100 Carbon Dioxide 31 H BUN 15 D Creatinine 0.73 Laboratory Results - last 24 hr 10/24/21 10/24/21 08:57 09:00 POC Glucose 168 H COVID-19 (PRINCESS) Negative COVID-19 Clin Com See Note Airway Mallampati Class: III TM Dist: >3cm Neck ROM: Full Partial: Lower Loose/Missing/Broken Teeth: Yes (Broken top front) Heart: RRR Lungs: CTAB Assessment and Plan Assessment Anesthesia Assessment: Anesthesia Plan Discussed Final Anesthetic Review NPO: Yes ASA Class: III Final Preanesthetic Review: No Changes in Pt Med Stat, Meds/Allgs Chart Reviewed, Consent Obtained/Reviewed and Anes Risks/Benef Reviewed Patient Risk: Intermediate Procedure Risk: Intermediate Assessment/Block/Sedation in SS: Assess/Block/Sedation-SS Anesthetic Plan Anesthetic Plan: GA Disposition: Standard PACU and Inp. Admit - Standard Bed
--- NOTE | 2021-10-21 22:42 | P.HPSUR_ITS ---
Pre-Procedural Eval Section A Date of Service: 10/21/21 The patient is an INPATIENT: Yes The History & Physical has been completed within 30 days and I have reviewed it.: Yes Section B Chief Complaint: obesity Relevant Family History (Specify if Yes): No Relevant Social History: None Present Medications: None Medical History: No relevant PMH History of Previous Operations: No relevant previous surgery Allergies: Allergies Allergy/AdvReac Type Severity Reaction Status Date / Time bupropion [From WELLBUTRIN] Allergy Intermediate ITCHING Verified 10/13/21 15:59 influenza virus vaccine, Allergy Unknown RASH Verified 10/13/21 15:59 specific [FLU VACCINE] latex Allergy Unknown rash Verified 10/13/21 15:59 Sulfa (Sulfonamide Allergy Unknown UNKNOWN, Verified 10/13/21 15:59 Antibiotics) itch, itching Review of Systems Sugical H&P ROS: Negative: Constitution, Cardiovascular, Respiratory, Neurological, Psychiatric, Hem-Onc, Allergic/Immunologic, Gastrointestinal, Genitourinary, Musculoskeletal, Integumentary, Endocrine and Eyes/Ears/Nose/Throat Exam Surgical H&P Exam: Normal: HEENT, Normal: Heart, Normal: Lungs, Normal: Extremi ties, Normal: Abdomen, Normal: Skin and Normal: Neurological Plan Diagnosis/Plan: Unchanged I have reviewed the history and physical and performed a pertinent physical examination on my patient. No changes have occurred unless specified.
[2021-10-24] VITALS (21 sets, daily range): BP systolic 125–200; BP diastolic 66–101; PULSE 72–98; RESP 16–18; TEMP 35.9–36.8; O2SAT 79–98
--- NOTE | 2021-10-24 08:56 | PHA.MEDREC ---
Pharmacy Consult ? Medication Reconciliation Pharmacy has reviewed the medication reconciliation completed by nursing. Medina Bahena, AbrilD
[2021-10-24 09:04] LABS: Glucose, Whole Blood 168 mg/dL (60-115)
[2021-10-24 09:21] LABS: COVID-19 Test Negative (Negative)
[2021-10-24] MEDS: Lactated Ringers 1,000 ML 999 ML IV (09:52)
--- NOTE | 2021-10-24 11:20 | P.PNGS_ITS ---
Subjective Subjective Date of Service: 10/25/21 Interval history: Feels well. Mild incisional pain. She is tolerating phase 1 bariatric diet Very sleepy from own sedative medications Physical Exam Vital Signs: Vital Signs: Last Vital Signs Temp 97.9 F 10/24/21 08:52 Pulse 90 10/24/21 08:52 Resp 18 10/24/21 08:52 BP 125/69 10/24/21 08:52 Pulse Ox 94 10/24/21 08:52 O2 Del Method 10/24/21 08:52 BMI result Body Mass Index 40.1 GI: Inspection: Yes normal to inspection, Yes incision (clean, dry and intact) and Yes obesity Extrem: Right lower extremity: normal to inspection (no calf tenderness) Left lower extremity: normal to inspection (no calf tenderness) Objective Data Labs CBC & Chem 7: 10/25/21 05:57 10/25/21 05:57 Labs: Laboratory Results - last 24 hr 10/24/21 10/24/21 08:57 09:00 POC Glucose 168 H COVID-19 ([facility]INCESS) Negative COVID-19 Clin Com See Note Procedures Date of Service Date of Service: 10/25/21 Progress Note: A&P Assessment and plan (1) Obesity: Status: Acute Assessment and Plan: s/p laparoscopic sleeve gastrectomy, lysis of adhesions, diaphragmatic hernia repair and gastropexy Doing well. Stop Gabapentin and Trazodone Will monitor for a few more hours to make sure she is more awake before d ischarge (2) BMI 37.0-37.9, adult: Status: Acute (3) GERD (gastroesophageal reflux disease): Status: Acute (4) DM2 (diabetes mellitus, type 2): Status: Acute (5) ADHD: Status: Acute (6) COPD (chronic obstructive pulmonary disease): Status: Acute (7) Depression: Status: Acute (8) Steatosis, liver: Status: Acute (9) Status post sleeve gastrectomy: Status: Acute (10) Hepatomegaly: Status: Acute Time Spent With Patient Time: Total time spent is greater than 50% in coordination of care (as documented) at patient's floor/unit and/or counseling patient: Quality Stroke Does the patient have a stroke diagnosis?: No VTE Prior VTE?: No VTE Risk Level:: Surgical - moderate VTE Device Contraindication: N/A - Device Ordered VTE Drug Contraindication: Treatment Not Indicated
--- NOTE | 2021-10-24 11:23 | P.BOP_ITS ---
Brief Operative Note Date of Service: 10/24/21 Pre-op diagnosis: Severe obesity with comorbidities (see below) Post-op diagnosis: same (& severe hepatomegaly) Procedure: INITIAL PATIENT BMI ON PRESENTATION AT OUR OFFICE: 38.1 kg/m2 LAST BMI BEFORE SURGERY: 37.8 kg/m2 COMORBIDITIES: GERD, non-insulin dependent diabetes, ADHD, COPD, DJD, depression, anxiety, liver steatosis, insomnia, liver fibrosis ?The patient presented to the Weight Management Program with significant obesity that was negatively impacting the patient's comorbidities as listed above.? The program is a phased program with a special focus on preoperative medical weight management to promote substantial weight loss and prepare the patients for the second phase of the program: bariatric surgery. The patient participated in an intensive weekly lifestyle ?intervention and exercise program during which the patient ?has lost between the initial office visit and the last preoperative visit 1.5 lbs, or 1% of initial actual body weight. It was deemed appropriate for the patient to now have bariatric surgery. In light of the current Covid-19 pandemic and the well documented strong association of obesity and increased risk of worse outcomes if infected with Covid-19 (REFERENCES: https://pubmed.ncbi.nlm.nih.gov/92868193/ ,? https://pubmed.ncbi.nlm.nih.gov/73957927/ ), any delay in undergoing bariatric surgery may lead to the patient's worsening health condition and increased?risk of more severe Covid-19 disease if infected. In addition a recent?study from [facility] published in [facility] on 04/17/2021 (file: ///[email or web address]) found that, among patients with obesity, substantial weight loss achieved with surgery was associated with improved outcomes of COVID-19 infection. The findings suggest that obesity can be a modifiable risk factor for the severity of COVID-19 infection. In addition, the patient met the BMI-criteria for bariatric surgery based on the BMI on initial presentation. The patient should not be penalized for achieving such weight loss because ?it is not sustainable long-term without surgical intervention and it was achieved in preparation for bariatric surgery ?under my direction and based on my published research ([email or web address]).[email or web address] and? https://www.soard.org/article/I5793-0161(60)01349-X/pdf ) ?that a 10% preoperative weight loss improves long-term weight loss after surgery and reduces perioperative complications.? Insurance carriers such as [facility] have endorsed my recommendations ?and have included in their policies criteria to include a 10% preoperative weight loss requirement. PROCEDURE: Esophago-gastroscopy, laparoscopic sleeve gastrectomy and laparoscopic gastropexy INDICATIONS: This is a 61 year-old female who was electively scheduled for laparoscopic, possibly open sleeve gastrectomy. The risks and complications of the procedure were discussed with the patient in advance, particularly the possibility of ; pulmonary embolism; staple line leak; bleeding; GERD; cardiac, pulmonary, or renal complications; as well as long-term problems such as insufficient weight loss, vitamin deficiency, strictures, or ulcers. The patient understood all the risks, and was in agreement to proceed with surgery. DESCRIPTION OF PROCEDURE: After informed consent was obtained from the patient, the patient was given preoperative antibiotics, and was transferred to the operating room. After successful induction of general anesthesia, pneumatic compression devices were placed on both lower extremities. An upper endoscopy was performed next. The oropharynx and esophagus appeared to be within normal limits. There was no diaphragmatic hernia present of moderate size consistent with the findings of the preoperative upper GI. The stomach was entered. Then after all fluid and air were suctioned and the stomach was fully decompressed, the scope was withdrawn and secured in the mid esophagus. The patient was then prepped and draped in the usual sterile manner, and abdominal access was established at the right upper quadrant with the Slava technique. A 12 mm blunt port was inserted, and the abdomen was insufflated with CO2 to a pressure of 15 mmHg. Under direct visualization, additional ports were placed, specifically two 5 mm Versi-step ports to the left upper quadrant, and a 5 mm Versi-Step port to the right upper quadrant. 1% lidocaine plain was used to infiltrate all port sites as well as all fascia defects. Using the EndoClose suture passer device, I placed a #1 Polysorb tie across the falciform ligament in order to retract it up against the abdominal wall and prevent injury of the ligament with our instruments during the procedure. Following that, the patient was placed in a steep reverse Trendelenburg position. An additional 5 mm port was placed to the right flank for the Mediflex retractor that was used to retract the left lobe of the liver. There was severe hepatomegaly and that made the exposure very difficult and prolonged the operation significantly with a total operative time of 2 hours. The gastro-esophageal fat pad was opened with the ultrasonic device (Thunderbeat, Olympus) and the anterior esophagus and hiatus were exposed. The angle of His was opened with the ultrasonic device the fundus of the stomach from any diaphragmatic and splenic attachments. I then opened the gastrocolic ligament between the transverse colon and the greater curvature of the stomach with the ultrasonic device to enter the lesser sac and facilitate the ligation of the short gastric vessels. I started at a mid-point along the greater curvature and using the Thunderbeat, all short gastric vessels were divided all the way to the angle of His until the left merissa was completely dissected at its entirety. I then divided the gastro-colic ligament distally to a distance of about 3-4 cm proximal to the pylorus. The stomach was then divided transversely with one Endo MAISHA-45 purple, one MAISHA- 60 purple load, four MAISHA-45 orange loads and two MAISHA-60 articulating orange loads using the AEON stapler and loads. Every effort was made that the gastric sleeve had a tubular shape and an even caliber throughout. Once the sleeve resection was completed, the staple line of the gastric sleeve was reinforced wi th Hemoclips. The resected stomach was retrieved without difficulty from the Slava port. A gastropexy was then performed in order to prevent postoperative GERD and partial gastric volvulus. Several interrupted 2.0 Surgidac sutures were placed between the sleeve's staple line and the previously divided greater omentum and gastro-colic ligament using the Endo-Stitch device. ?An upper endoscopy was performed. There was no narrowing at the GE junction. The scope was easily advanced all the way to the pylorus which was clearly visualized. There was no narrowing anywhere and the sleeve's caliber was even throughout. The sleeve's staple line was inspected and there was no evidence of ischemia, bleeding or dehiscence. At that point the gastroscope was withdrawn from the patient?s mouth while we were decompressing the bowel and the stomach from any remaining air. I looked into the lesser sac to see how the sleeve was situating and it was situating well. There was no bleeding from the staple line, spleen, or short gastric vessels. The Mediflex retractor was removed, and the undersurface of the liver was inspected and there was no bleeding. The patient was placed in supine position. I closed the fascial defect of the 12 mm port site with a figure of eight #1 Polysorb suture. Then 40ml of Rupivacaine plain with 10 mg of Dexamethasone were used to infiltrate the fascial closure as well as all skin incisions. A total of 7ml of Zynrelef was placed into the Slava wound. At this point, the abdomen was deflated, all ports were removed under direct vision, and no bleeding was noted from any of the port sites. The skin incisions were irrigated with saline and were closed with 4-0 absorbable monofilament sutures. Steri-Strips and OpSites were used to cover all incisions. The patient was extubated and was transferred in stable condition to the recovery room for further care. I was present and performed all garcia parts of the procedure. Frank was the or first assist registered nurse. There were no residents to assist with this case. Ramos Asencio MD, PhD, FACS Surgeon: Maximo Asencio MD Anesthesia: GETA, local and other (TAP block & 7ml Zynrelef) Was an Division Order Analyst used for this Procedure?: No Division Order Analyst: Radha Marie Estimated blood loss (mL): 10 IV fluids (mL): 2,000 Urine output (mL): 0 (No Shin to record) Pathology: other (Stomach) Condition: stable Disposition: PACU
[2021-10-24] MEDS: ceFAZolin Sodium/Dextrose,Iso 2 GM/50 ML PIGGYBACK IV ×2 (11:36→17:34)
--- NOTE | 2021-10-24 14:40 | PM.DS ---
DS: Providers Provider Date of Service: 10/25/21 Date of admission: 10/24/21 08:33 Primary care physician: Melissa Topete MD DS: Diagnosis Discharge Diagnosis (1) Obesity: Status: Acute (2) BMI 37.0-37.9, adult: Status: Acute (3) GERD (gastroesophageal reflux disease): Status: Acute (4) DM2 (diabetes mellitus, type 2): Status: Acute (5) ADHD: Status: Acute (6) COPD (chronic obstructive pulmonary disease): Status: Acute (7) Depression: Status: Acute (8) Steatosis, liver: Status: Acute (9) Status post sleeve gastrectomy: Status: Acute (10) Hepatomegaly: Status: Acute DS: Summary Hospital Course Hospital Course: ADMITTING DIAGNOSIS: morbid obesity, GERD, TEA, hyperlipidemia, COPD, asthma, SDHD, hx opiod use DISCHARGE DIAGNOSIS: same, s/p laparoscopic sleeve gastrectomy PAST SURGICAL HISTORY: hysterectomy, cholecystectomy PROCEDURE: upper endoscopy, laparoscopic sleeve gastrectomy DISCHARGE SUMMARY: History of Present Illness: The patient is a 61 year-old woman with a BMI of 38.0kg/m2 and associated co-morbidities as described above. The patient had extensive work-up, lost 1 lb preoperatively and was electively scheduled for laparoscopic, possible open sleeve gastrectomy and gastropexy. Risks and complications of the surgery were discussed with the patient in advance, particularly the possibility of , pulmonary embolism, anastomotic leak, bleeding, bowel injury, GERD, cardiac, renal or pulmonary complications. The patient understood all the risks and was in agreement with the surgical plan. Hospital Course: The patient underwent an uneventful laparoscopic sleeve gastrectomy with gastropexy on the day of admission. Postoperatively, the patient was transferred to the surgical floor. The patient received IV Acetaminophen and IV dilaudid for pain control. Patient was started on bariatric phase 1 diet POD #0. On postoperative day one, the patient was feeling well without nausea, vomiting, fevers, or tachycardia. The patient had some mild incisional pain and the abdomen was soft. On the morning of postoperative day one, the patient was continued on 1 ounce of water or ice every half hour. During the day, the patient did fairly well, having some incisional pain, but able to ambulate adequately and to tolerate liquids well. Since the patient is doing well, we decided that the patient was ready to be discharged. The patient was given instructions to follow-up with me next week and to call my office for any fever over 101, persistent abdominal pain, nausea, vomiting, GERD, symptoms of DVT such as calf tenderness, or leg swelling, or pulmonary embolism such as chest pain or shortness of breath. The patient was also instructed to drink 40-60 ounces of liquids per day using the 1-ounce cups. The patient had been given prescriptions for Tylenol for pain, Zofran prn for nausea, and pantoprazole and carafate previously. The patient was encouraged to ambulate and use the incentive spirometer. The patient was allowed to shower, but no baths, and encouraged to stay active at home. All of these instructions were given to the patient personally. All questions were answered and the patient understood all instructions, the instructions were also given to the patient in print. Time Spent with Patient Time attestation: Total time spent providing and/or coordinating discharge services: Discharge coordination time: Less than 30 minutes Quality: Safe Use of Opioids Does Pt have an Active Cancer Diagnosis on the Problem List?: No Quality: Stroke Does the patient have a stroke diagnosis?: No Physical Exam Vital Signs: Vital Signs: Last Vital Signs Temp 97.9 F 10/24/21 08:52 Pulse 90 10/24/21 08:52 Resp 18 10/24/21 08:52 BP 125/69 10/24/21 08:52 Pulse Ox 94 10/24/21 08:52 O2 Del Method 10/24/21 08:52 BMI result Body Mass Index 40.1 DS: Data Data Completed and Pending Pending studies at discharge: Pending at discharge 10/24/21 13:36 Surgical [PTH] Routine Labs on day of discharge: Laboratory Results - last 24 hr 10/24/21 10/24/21 08:57 09:00 POC Glucose 168 H COVID-19 (PRINCESS) Negative COVID-19 Clin Com See Note Discharge Plan Discharge Patient Disposition: Home, Self-Care Discharge Diagnosis: s/p sleeve gastrectomy Referrals: Melissa Topete MD [Primary Care Provider] - 1 Week Discharge Medications: Continued doxepin 25 mg capsule 25 - 50 mg PO BEDTIME dextroamphetamine-amphetamine 30 mg tablet 30 mg PO BID@0900,1300 risperidone [Risperdal] 2 mg tablet 2 mg PO BEDTIME buspirone 10 mg tablet 10 mg PO BID buprenorphine-naloxone 8-2 mg film 1 strip sublingual BID albuterol sulfate [Ventolin HFA] 90 mcg/actuation HFA aerosol inhaler 2 puff PO QID PRN (Reason: wheezing) Discontinued atorvastatin 10 mg tablet 10 mg PO BEDTIME gabapentin 800 mg tablet 800 mg PO TID trazodone 100 mg tablet 300 mg PO BEDTIME metformin 1,000 mg tablet 500 mg PO BIDWM divalproex 500 mg tablet extended release 24 hr 1,500 mg PO QPM bisacodyl 5 mg Tablet,Delayed Release (Dr/Ec) 10 mg PO BEDTIME Qty: 60 0RF docusate sodium [Colace] 100 mg capsule 100 mg PO BID Qty: 60 0RF polyethylene glycol 3350 [Miralax] 17 gram powder in packet 17 g PO DAILY Qty: 14 0RF Rx Instructions: Mix each packet with 8oz of water and do 7 packets on 10/22/21 and another 7 packets on 10/23/21 Discharge Orders: Discharge Order (Routine); Ordered 10/25/21 Ordered By: Yosef Egan Activity on Discharge: No heavy lifting Stand Alone Forms: Patient Portal Discharge page Care Plan Goals: weight loss Health Concerns: obesity Plan of Treatment: No tub baths, sex or returning to work until discussed at first post op appointment. No exercise, alcohol, tobacco or illegal drug use. Continue to use incentive spirometer hourly while awake. Walk in home for 5- 10 minutes every 2 hours during the first week. Continue phase 1 diet today and start phase 2 diet tomorrow morning. Follow all instructions in the bariatric handbook and call with any questions. 1. Please call your doctor or come back to the emergency room should any new symptoms arise. 2. You will receive a courtesy call from [facility] 24-48 hours after discharge. 3. Activity: abstain from alcohol, practice limited stair climbing, no bending, no driving, no exercise, no illicit substances, no lifting, no sex, no tub bath, no work. 4. Diet: continue as discussed with Dr. Asencio. 5. Dressing Change/Wound Care: Do not change or remove surgical dressings unless they are wet or soiled. 6. Call your doctor if: - Your temperature exceeds 101.5 F - You experience excessive pain or swelling - You have an unexpected reaction to medication - You have excessive bleeding - You experience continued vomiting/nausea - Your incision begins to separate - Your incision shows signs of infection such as increased redness, swelling, excessive pain, heat, or drainage (light blood or clear fluid is normal) 7. General instructions: No lifting greater than 5 lbs for the next 4 weeks[address] driving within 24 hours of taking narcotic pain medications. If you do not move your bowels in the next 2 days, please take milk of magnesia over the counter. Please follow the post op diet and do not advance your diet until you are seen in the office in about 2 weeks. Please walk around your home every hour or two to prevent blood clots from forming in your legs. You do not need to wake from sleeping to walk. Please sleep in a bed or couch to prevent kinking at the hips and knees. Please take your incentive spirometer (your lung decision support manager) home with you and use it for the next few days to prevent pneumonias. You may shower, no hot tubs, baths or swimming pools. Please call the office with any questions or concerns such as increasing abdominal pain, fever, chills, shortness of breath, chest pain, leg pain or swelling, or redness or drainage from your incisions. Do not hesitate to contact the office with any questions at . The patient's medical history has been reviewed and they are considered low risk for post op DVT and therefore DVT prophylaxis is not considered necessary. Travel after surgery was reviewed. The patient has not disclosed any travel plans during the first 30 days after surgery and they have been advised that within the first 30 days after surgery any bus, plane, train or car travel over 2 hours in duration is contraindicated due to the possibility of developing blood clots from immobility. Any travel, needs to include periods of ambulation of 10 minutes in duration every 2 hours. The patient was instructed to discuss any plans for travel during this period with their bariatric surgeon. Assessment: stable, post op sleeve gastrectomy Discharge Date/Time: 10/25/21 12:42
[2021-10-24] MEDS: Famotidine/PF 20 MG/2 ML VIAL IVPUSH ×2 (14:55→20:22)
[2021-10-24] MEDS: Metoclopramide HCl 10 MG/2 ML VIAL IVPUSH (15:20)
[2021-10-24 15:24] LABS: Hematocrit 46.9 % (37.0-47.0); Hemoglobin 15.1 g/dl (12.0-16.0)
[2021-10-24 15:34] LABS: Anion Gap 15 (12-20); Blood Urea Nitrogen 10 mg/dL (9-16); Calcium 8.7 mg/dL (8.4-10.2); Carbon Dioxide 24 mmol/L (22-29); Chloride 100 mmol/L (96-108); Creatinine Clr Calc Pharmacy 79.6; Estimated Glomerular Filt Rate > 60; Glucose Random 251 mg/dL (60-115); Potassium 3.8 mmol/L (3.3-5.1); Sodium 135 mmol/L (135-145)
[2021-10-24] MEDS: Lactated Ringers 1,000 ML 100 ML IVCONT (15:34)
[2021-10-24] MEDS: Gabapentin 400 MG CAPSULE 800 MG PO ×2 (16:11→20:28)
[2021-10-24] MEDS: HYDROmorphone HCl 0.5 MG/0.5 ML SYRINGE 0.25 MG IVPUSH ×3 (17:09→21:49)
[2021-10-24] MEDS: Labetalol HCL 100 MG/20 ML VIAL 10 MG IVPUSH (17:45)
--- NOTE | 2021-10-24 20:04 | PHA.MEDREC ---
Pharmacy Consult ? Medication Reconciliation Pharmacy has completed the medication reconciliation. Spoke to patient directly. She also had a list of her current meds on her person. List has been updated.
[2021-10-24] MEDS: ondansetron HCL 4 MG/2 ML VIAL IVPUSH (20:23)
[2021-10-24] MEDS: busPIRone HCl 10 MG TABLET PO (20:26)
[2021-10-24] MEDS: Doxepin HCl 25 MG CAPSULE PO (20:26)
[2021-10-24] MEDS: risperiDONE 2 MG TABLET PO (20:27)
[2021-10-24] MEDS: Buprenorphine/Naloxone 8/2 mg FILM 1 FILM SUBLINGUAL (20:37)
[2021-10-25] MEDS: Lactated Ringers 1,000 ML 100 ML IVCONT (01:21)
[2021-10-25 03:16] VITALS: BP 129/76; PULSE 84; RESP 17; TEMP 36.3; O2SAT 94
--- NOTE | 2021-10-25 04:41 | PC.NURSE ---
Around 0330 pt unable to hold medicine cup to drink her water, able to pick the cup up but then drops it, also able to grab the call [place] but then drops it. Vital signs stable, no c/o pain or nausea, but alert & oriented but very drowsy. [place] text sent to ALON Diaz. 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 No facial asymmetry noted. Asked pt to hold her arms out, she's able to for a few seconds then her arms drop down. 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 After all of this, around 0 she states that this is nothing new, she has trouble at home with her knees buckling and gripping things. Although, she did not make that known to me when all of this started. ALON Diaz is aware.
[2021-10-25] MEDS: ondansetron HCL 4 MG/2 ML VIAL IVPUSH (04:48)
[2021-10-25 06:35] LABS: MANUAL DIFF FLAG NO
[2021-10-25 06:49] LABS: Basophils Percent Auto 0.1 % (0-2); Hematocrit 43.5 % (37.0-47.0); Imm Gran Abs Auto 0.09 X10*3/uL (0.00-0.03); Imm Gran Pct Auto 0.6 % (0.0-0.4); Lymphocytes Absolute Auto 1.6 X10*3/uL (1.2-4.9); Lymphocytes Percent Auto 10.8 % (20-40); Mean Corpuscular HGB Conc 32.2 g/dl (31.0-35.0); Mean Corpuscular Hemoglobin 29.4 pg (27.0-33.0); Mean Corpuscular Volume 91.4 fL (80.0-98.0); Mean Platelet Volume 10.1 fL (9.4-12.3); Monocytes Absolute Auto 0.8 X10*3/uL (0.1-1.2); Monocytes Percent Auto 5.1 % (2-11); Neutrophils Absolute Auto 12.4 x10*3/uL (2.0-8.3); Neutrophils Percent Auto 83.4 % (45-73); Platelet Count 182 X10*3/uL (160-400); Red Blood Count 4.76 X10*6/uL (4.20-5.50); Red Cell Distribution Width 12.9 % (11.0-16.0); White Blood Count 14.9 X10*3/uL (4.8-10.8)
[2021-10-25 07:10] LABS: Anion Gap 12 (12-20); Blood Urea Nitrogen 8 mg/dL (9-16); Calcium 8.6 mg/dL (8.4-10.2); Carbon Dioxide 28 mmol/L (22-29); Chloride 102 mmol/L (96-108); Creatinine Clr Calc Pharmacy 94.2; Estimated Glomerular Filt Rate > 60; Glucose Random 185 mg/dL (60-115); Potassium 4.3 mmol/L (3.3-5.1); Sodium 138 mmol/L (135-145)
[2021-10-25 07:56] VITALS: BP 125/64; PULSE 85; RESP 18; TEMP 36
[2021-10-25] MEDS: Amphetamine Mixed Salts 10 MG TABLET 30 MG PO (08:50)
[2021-10-25] MEDS: Buprenorphine/Naloxone 8/2 mg FILM 1 FILM SUBLINGUAL (08:50)
[2021-10-25] MEDS: Famotidine/PF 20 MG/2 ML VIAL IVPUSH (08:53)
--- NOTE | 2021-10-25 11:18 | HO.POSTANES ---
Post Anesthesia Evaluation Post Anesthesia Evaluation Vital Signs: Vital Signs Temp Pulse Resp BP Pulse Ox O2 Del Method 10/25/21 07:56 96.8 F 85 18 125/64 10/25/21 03:16 97.3 F 84 17 129/76 94 Room Air 10/24/21 23:43 97.5 F 74 17 157/72 H 94 Room Air Anesthesia: General Endotracheal-GETA Mental Status: Awake Pain Control: Satisfactory Nausea/Vomiting: None Hydration: Adequate Anesthesia-Related Issues: No Anes. Related Issues
[2021-10-25 11:23] VITALS: BP 113/63; PULSE 88; RESP 16; TEMP 37.1; O2SAT 91
== END 2021-10-25 12:42 | disposition home or self-care (01) | DRG 621 ==
LOC: HO.SSSA 14:39 → HO.S3 17:32
PROVIDERS: Physician Assistant; Admitting Provider Surgery; PCP Internal Medicine; Visit Provider Surgery
PROC: 0DB64Z3 Excision of Stomach, Percutaneous Endoscopic Approach, Vertical (ICD-10-PCS; CPT 43845; principal; 2021-10-24 10:10)
DX: E66.01 Morbid (severe) obesity due to excess calories (principal); J44.9 Chronic obstructive pulmonary disease, unspecified; F90.9 Attention-deficit hyperactivity disorder, unspecified type; E11.9 Type 2 diabetes mellitus without complications; G47.33 Obstructive sleep apnea (adult) (pediatric); Z98.1 Arthrodesis status; F17.210 Nicotine dependence, cigarettes, uncomplicated; K21.9 Gastro-esophageal reflux disease without esophagitis; Z68.37 Body mass index [BMI] 37.0-37.9, adult; Z20.822 Contact with and (suspected) exposure to COVID-19; Z71.6 Tobacco abuse counseling; R16.0 Hepatomegaly, not elsewhere classified; Z91.040 Latex allergy status; Z88.2 Allergy status to sulfonamides; Z88.7 Allergy status to serum and vaccine; Z88.8 Allergy status to other drugs, medicaments and biological substances; Z79.899 Other long term (current) drug therapy
CPT/HCPCS: 36415; 80048; 82947; 85014; 85018; 85025; 86850; 86900; 86901; 87635; 88307; 88342; A4649; C9088; J0131; J0690; J1100; J1170; J2250; J2405; J2765; J2795; J3010

== ENCOUNTER → 2021-11-08 13:21 | Outpatient (BNVA) | payer MEDICARE, MEDICAID, SELFPAY | PROVIDERS: PCP Internal Medicine; Visit Provider Anesthesiology | DX: Z98.1 Arthrodesis status (principal); M51.36 Other intervertebral disc degeneration, lumbar region; M47.816 Spondylosis without myelopathy or radiculopathy, lumbar region; M54.16 Radiculopathy, lumbar region; M16.0 Bilateral primary osteoarthritis of hip; M25.551 Pain in right hip; M25.552 Pain in left hip | CPT/HCPCS: Q3014 ==

== ENCOUNTER → 2021-11-29 15:29 | Outpatient (BNVA) | payer MEDICARE, MEDICAID, SELFPAY | PROVIDERS: PCP Internal Medicine; Visit Provider Physician Assistant | DX: Z90.3 Acquired absence of stomach [part of] (principal) | CPT/HCPCS: 99212 ==

== ENCOUNTER → 2021-12-15 09:49 | Outpatient (BNVA) | payer MEDICARE, MEDICAID, SELFPAY | PROVIDERS: PCP Internal Medicine; Visit Provider Physician Assistant | DX: E11.65 Type 2 diabetes mellitus with hyperglycemia (principal); E11.40 Type 2 diabetes mellitus with diabetic neuropathy, unspecified; Z90.49 Acquired absence of other specified parts of digestive tract; Z90.3 Acquired absence of stomach [part of] | CPT/HCPCS: 99212 ==

== ENCOUNTER → 2021-12-28 12:32 | Outpatient (BNVA) | payer MEDICARE, MEDICAID, SELFPAY | PROVIDERS: PCP Internal Medicine; Visit Provider Physician Assistant | DX: M70.61 Trochanteric bursitis, right hip (principal) | CPT/HCPCS: 20610; 99202; J1020 ==

== ENCOUNTER 2022-02-05 12:14 | Outpatient (REF) | payer MEDICARE, MEDICAID, SELFPAY ==
[2022-02-05 13:56] LABS: MANUAL DIFF FLAG NO
[2022-02-05 14:02] LABS: Basophils Percent Auto 0.5 % (0-2); Eosinophils Percent Auto 0.7 % (0-4); Hematocrit 44.5 % (37.0-47.0); Hemoglobin 14.4 g/dl (12.0-16.0); Imm Gran Abs Auto 0.02 X10*3/uL (0.00-0.03); Imm Gran Pct Auto 0.3 % (0.0-0.4); Lymphocytes Absolute Auto 2.5 X10*3/uL (1.2-4.9); Lymphocytes Percent Auto 41.2 % (20-40); Mean Corpuscular HGB Conc 32.4 g/dl (31.0-35.0); Mean Corpuscular Hemoglobin 28.7 pg (27.0-33.0); Mean Corpuscular Volume 88.8 fL (80.0-98.0); Monocytes Absolute Auto 0.4 X10*3/uL (0.1-1.2); Monocytes Percent Auto 6.3 % (2-11); Neutrophils Absolute Auto 3.1 x10*3/uL (2.0-8.3); Platelet Count 142 X10*3/uL (160-400); Red Blood Count 5.01 X10*6/uL (4.20-5.50); Red Cell Distribution Width 13.2 % (11.0-16.0)
[2022-02-05 14:24] LABS: Alanine Aminotransferase 11 U/L (0-31); Albumin Level 4.2 g/dL (3.5-5.0); Alkaline Phosphatase 70 U/L (39-117); Anion Gap 14 (12-20); Aspartate Amino Transferase 16 U/L (5-31); Bilirubin Total 0.5 mg/dL (0.0-1.0); Blood Urea Nitrogen 15 mg/dL (9-16); Calcium 9.3 mg/dL (8.4-10.2); Carbon Dioxide 31 mmol/L (22-29); Chloride 98 mmol/L (96-108); Cholesterol 241 mg/dL; Estimated Glomerular Filt Rate > 60; Glucose Fasting 94 mg/dL (60-99); HDL Cholesterol 48 mg/dL; LDL Cholesterol Calculated 168 mg/dl; Potassium 3.9 mmol/L (3.3-5.1); Sodium 139 mmol/L (135-145); Total Protein 6.8 g/dL (6.5-8.0); Triglycerides 129 mg/dL
== END 2022-02-05 12:15 | disposition home or self-care (01) ==
LOC: HO.HMGCLDS 12:14
PROVIDERS: PCP Internal Medicine; Visit Provider Internal Medicine
DX: E11.40 Type 2 diabetes mellitus with diabetic neuropathy, unspecified (principal); E66.01 Morbid (severe) obesity due to excess calories; Z68.41 Body mass index [BMI] 40.0-44.9, adult; G47.00 Insomnia, unspecified; K21.9 Gastro-esophageal reflux disease without esophagitis; R12 Heartburn
CPT/HCPCS: 36415; 80053; 80061; 82306; 85025

== ENCOUNTER 2022-02-06 15:11 | Outpatient (REF) | payer MEDICARE, MEDICAID, SELFPAY ==
[2022-02-06 17:05] LABS: Creatinine Urine 167.19 mg/dL; Microalbum/Creatinine Ratio Ur 5.9 ug/mg cr
== END 2022-02-06 15:12 | disposition home or self-care (01) ==
LOC: HO.HMGCLDS 15:11
PROVIDERS: PCP Internal Medicine; Visit Provider Internal Medicine
DX: E11.40 Type 2 diabetes mellitus with diabetic neuropathy, unspecified (principal); G47.00 Insomnia, unspecified; E66.01 Morbid (severe) obesity due to excess calories; K21.9 Gastro-esophageal reflux disease without esophagitis; R12 Heartburn; Z68.41 Body mass index [BMI] 40.0-44.9, adult
CPT/HCPCS: 82043

== ENCOUNTER → 2022-02-07 14:30 | Outpatient (BNVA) | payer MEDICARE, MEDICAID, SELFPAY | PROVIDERS: PCP Internal Medicine; Visit Provider Physician Assistant Surgical | DX: E66.01 Morbid (severe) obesity due to excess calories (principal); Z90.3 Acquired absence of stomach [part of]; Z68.31 Body mass index [BMI] 31.0-31.9, adult | CPT/HCPCS: Q3014 ==

== ENCOUNTER → 2022-02-09 08:30 | Outpatient (BNVA) | payer MEDICARE, MEDICAID, SELFPAY | PROVIDERS: PCP Internal Medicine; Visit Provider Nurse Practitioner Family | DX: K21.9 Gastro-esophageal reflux disease without esophagitis (principal); K59.01 Slow transit constipation | CPT/HCPCS: 99202 ==

== ENCOUNTER 2022-02-14 08:17 | Outpatient (REF) | payer MEDICARE, MEDICAID, SELFPAY ==
[2022-02-14 11:27] LABS: MANUAL DIFF FLAG NO
[2022-02-14 11:34] LABS: Basophils Percent Auto 0.6 % (0-2); Eosinophils Absolute Auto 0.1 X10*3/uL (0.0-0.4); Eosinophils Percent Auto 1.1 % (0-4); Hematocrit 45.3 % (37.0-47.0); Hemoglobin 14.2 g/dl (12.0-16.0); Imm Gran Abs Auto 0.01 X10*3/uL (0.00-0.03); Imm Gran Pct Auto 0.2 % (0.0-0.4); Lymphocytes Percent Auto 47.5 % (20-40); Mean Corpuscular HGB Conc 31.3 g/dl (31.0-35.0); Mean Corpuscular Hemoglobin 28.3 pg (27.0-33.0); Mean Corpuscular Volume 90.4 fL (80.0-98.0); Mean Platelet Volume 10.9 fL (9.4-12.3); Monocytes Absolute Auto 0.4 X10*3/uL (0.1-1.2); Monocytes Percent Auto 7.1 % (2-11); Neutrophils Absolute Auto 2.7 x10*3/uL (2.0-8.3); Neutrophils Percent Auto 43.5 % (45-73); Platelet Count 146 X10*3/uL (160-400); Red Blood Count 5.01 X10*6/uL (4.20-5.50); Red Cell Distribution Width 13.2 % (11.0-16.0); White Blood Count 6.2 X10*3/uL (4.8-10.8)
== END 2022-02-14 08:18 | disposition home or self-care (01) ==
LOC: HO.HMGCLDS 08:17
PROVIDERS: PCP Internal Medicine; Visit Provider Internal Medicine
DX: R23.3 Spontaneous ecchymoses (principal)
CPT/HCPCS: 36415; 85025

== ENCOUNTER 2022-03-01 10:35 | Outpatient (REF) | payer MEDICARE, MEDICAID, SELFPAY ==
--- NOTE | ~2022-03-01 | MM_ITS ---
EXAMINATION: MM SCREENING DIGITAL BREAST TOMOSYNTHESIS, BILATERAL CLINICAL INFORMATION: Screening. Asymptomatic. COMPARISON: Mammography: None TECHNIQUE: Digital breast tomosynthesis is performed in both the craniocaudal and mediolateral oblique views along with computer-aided detection (CAD). Synthesized 2D images are generated from the tomosynthesis. FINDINGS: There are scattered areas of fibroglandular density (ACR BI-RADS breast composition Category b). Within the lateral aspect of the right breast there is a circumscribed 5 mm density approximately 7.5 cm from the nipple. No suspicious grouping of microcalcifications identified. About the upper outer aspect of the left breast approximately 4 cm from the nipple there is a 7 x 5 mm partially circumscribed density. Bilateral spot compression films are recommended as well as possible ultrasound if these findings are persistent. MM/MM tomosynthesis screening BI IMPRESSION: Bilateral breast densities for further evaluation as described. ASSESSMENT: BI-RADS 0: Incomplete - Need Additional Imaging Evaluation RECOMMENDATION: 1. Additional views of the bilateral breasts 2. Targeted ultrasound if warranted after review of the additional views. 3. Radiology department staff will contact the patient for additional imaging. This patient's information was entered into a reminder system with a target due date for their next mammogram.
== END 2022-03-01 10:36 | disposition home or self-care (01) ==
LOC: HO.MAMMO 10:35
PROVIDERS: PCP Internal Medicine; Visit Provider Internal Medicine
DX: Z12.31 Encounter for screening mammogram for malignant neoplasm of breast (principal)
CPT/HCPCS: 77063; 77067

== ENCOUNTER → 2022-03-05 13:36 | Outpatient (BNV) | payer MEDICARE, MEDICAID, SELFPAY | PROVIDERS: PCP Internal Medicine; Visit Provider Internal Medicine Medical Oncology | DX: D69.6 Thrombocytopenia, unspecified (principal) | CPT/HCPCS: 99204; 99212; 99213 ==

== ENCOUNTER 2022-03-09 09:15 | Outpatient (REF) | payer MEDICARE, MEDICAID, SELFPAY ==
--- NOTE | ~2022-03-09 | US_ITS ---
EXAMINATION: US VENOUS WITH DOPPLER UPPER EXTREMITY, RIGHT CLINICAL INFORMATION: Edema COMPARISON: None TECHNIQUE: Ultrasound of the upper extremity is performed using compression sonography and color and pulse Doppler flow with assessment of augmentation of flow. There is also imaging and Doppler assessment of the jugular and subclavian veins. Spectral analysis with color-flow imaging is performed. FINDINGS: Respiratory variation, normal compression, and augmented flow are noted throughout the upper extremity including the axillary, brachial, cubital, and radial and ulnar veins. There is normal flow in the internal jugular and subclavian veins. There is no visible deep or superficial thrombophlebitis. If the patient's symptoms progress, a followup ultrasound in 5 -7 days might be of value to exclude proximal propagation from a nonvisualized distal arm vein. US/US venous duplex UE RT IMPRESSION: No DVT demonstrated in the right upper extremity
== END 2022-03-09 09:16 | disposition home or self-care (01) ==
LOC: HO.US 09:15
PROVIDERS: Visit Provider Internal Medicine Medical Oncology
DX: R60.0 Localized edema (principal)
CPT/HCPCS: 93971

== ENCOUNTER → 2022-03-13 09:02 | Outpatient (BNVA) | payer MEDICARE, MEDICAID, SELFPAY | PROVIDERS: PCP Internal Medicine; Visit Provider Nurse Practitioner Family | DX: K21.9 Gastro-esophageal reflux disease without esophagitis (principal); R13.10 Dysphagia, unspecified; Z79.899 Other long term (current) drug therapy | CPT/HCPCS: 99212 ==

== ENCOUNTER 2022-03-14 13:51 | Outpatient (REF) | payer MEDICARE, MEDICAID, SELFPAY ==
--- NOTE | ~2022-03-14 | MM_ITS ---
EXAMINATION: MM DIAGNOSTIC DIGITAL BREAST TOMOSYNTHESIS, BILATERAL US DIAGNOSTIC ULTRASOUND BREAST, BILATERAL CLINICAL INFORMATION: Recall from baseline mammography for small nodule mid 9:00 right breast and upper outer left breast, respectively. COMPARISON: Mammography: 03/01/2022 (baseline, BI-RADS 0) TECHNIQUE: Digital breast tomosynthesis is performed. 2D images are generated from the tomosynthesis. The following views are obtained: Bilateral spot CC, bilateral spot ML x2. Ultrasound of each breast is performed using grayscale imaging and color Doppler without and with harmonics, targeted to the areas for additional evaluation. FINDINGS: There are scattered areas of fibroglandular density (ACR BI-RADS breast composition Category b). The additional views demonstrate small circumscribed nodule mid outer right breast and small circumscribed nodule mid outer left breast. No angulation or associated calcification. Ultrasound right breast demonstrates probable cyst under 5 mm right breast mid 11:00 position which may correspond to the finding on mammography. There is no associated color flow. No definite increased through-transmission of sound. No solid mass or architectural abnormality. Ultrasound left breast demonstrates circumscribed nodule 4 x 5 mm mid 1:00 position which may correspond to finding on mammography. No associated color flow. No architectural abnormality. Results are discussed with the patient at time of visit. The bilateral small solitary nodularity have benign features. Recommendation is for short interval follow-up bilateral mammography in 6 months. MM/MM tomosynthesis added view BI IMPRESSION: -Small solitary benign-appearing nodule mid outer right breast. -Small solitary benign-appearing nodule mid outer left breast. ASSESSMENT: BI-RADS 3: Probably Benign RECOMMENDATION: Diagnostic bilateral mammography in 6 months. This patient's information was entered into a reminder system with a target due date for their next mammogram.
== END 2022-03-14 13:52 | disposition home or self-care (01) ==
LOC: HO.MAMMO 13:51
PROVIDERS: PCP Internal Medicine; Visit Provider Internal Medicine
DX: R92.2 Inconclusive mammogram (principal)
CPT/HCPCS: 76642; 77062; 77066

== ENCOUNTER → 2022-07-19 12:56 | Outpatient (BNVA) | payer MEDICARE, MEDICAID, SELFPAY | PROVIDERS: PCP Internal Medicine; Visit Provider Physician Assistant Surgical | DX: E66.3 Overweight (principal); L98.7 Excessive and redundant skin and subcutaneous tissue; B37.0 Candidal stomatitis; Z90.3 Acquired absence of stomach [part of]; Z68.28 Body mass index [BMI] 28.0-28.9, adult | CPT/HCPCS: 99212 ==

== ENCOUNTER 2022-07-21 12:24 | Emergency (ER) | payer OTHER, SELFPAY ==
--- NOTE | ~2022-07-21 | XR_ITS ---
EXAMINATION: XR CERVICAL SPINE CLINICAL INFORMATION: Pain COMPARISON: Previous x-ray November 2010 TECHNIQUE: 3 views of the cervical spine were obtained. FINDINGS: Odontoid view is limited. There is exaggerated cervical lordosis. Bone alignment is otherwise normal. There is fusion hardware with interbody disc interspacer at C4-C5. There is anterior hardware with plate and screws at C5-C6 and C6-C7. Surgical hardware appears intact and unchanged from 2011. There is mild degenerative spondylosis and degenerative disc disease at C3-C4. Bilateral facet arthritis. Prevertebral soft tissues are normal. XR/XR cervical spine 3V IMPRESSION: Stable postsurgical changes from C4-C5 to C6-C7. Degenerative changes. Limited odontoid view.
--- NOTE | ~2022-07-21 | XR_ITS ---
EXAMINATION: XR LUMBOSACRAL SPINE CLINICAL INFORMATION: Low back pain COMPARISON: Previous x-ray August [address] July 2021 TECHNIQUE: Three views of the lumbosacral spine. FINDINGS: Bone alignment is normal. No fracture or dislocation. Postsurgical changes from fusion at L4-L5 and L5-S1 with interbody disc spacers. Posterior fusion hardware with rods and interpedicular screws at L4-L5. Orthopedic hardware appears intact and unchanged. Multilevel degenerative spondylosis and degenerative disc disease of the more proximal lumbar spine. Constipation. Surgical clips in bilateral upper quadrants. XR/XR lumbar spine 2-3V IMPRESSION: No fracture or dislocation. Postsurgical changes. Degenerative changes. Constipation.
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
[2022-07-21 12:46] VITALS: BP 122/73; PULSE 78; RESP 16; TEMP 36; O2SAT 99; BMI 28.5
[2022-07-21] MEDS: Lidocaine 4 % Patch ADH..PATCH 2 PATCH TRANSDERMA (13:12)
[2022-07-21] MEDS: Acetaminophen 325 MG TABLET 650 MG PO (13:13)
== END 2022-07-21 14:55 | disposition home or self-care (01) ==
PROVIDERS: Emergency Provider Emergency Medicine; PCP Internal Medicine
DX: S39.012A Strain of muscle, fascia and tendon of lower back, initial encounter (principal); S16.1XXA Strain of muscle, fascia and tendon at neck level, initial encounter; V43.02XA Car driver injured in collision with other type car in nontraffic accident, initial encounter; F17.210 Nicotine dependence, cigarettes, uncomplicated; F11.20 Opioid dependence, uncomplicated; Y93.89 Activity, other specified; Y92.481 Parking lot as the place of occurrence of the external cause; Y99.9 Unspecified external cause status
CPT/HCPCS: 72040; 72100; 99283

== ENCOUNTER → 2022-08-13 12:45 | Outpatient (BNVA) | payer MEDICARE, MEDICAID, SELFPAY | PROVIDERS: PCP Internal Medicine; Visit Provider Nurse Practitioner Family | DX: K21.9 Gastro-esophageal reflux disease without esophagitis (principal); K59.01 Slow transit constipation | CPT/HCPCS: 99212 ==

== ENCOUNTER → 2022-10-25 11:12 | Outpatient (BNVA) | payer MEDICARE, MEDICAID, OTHER, SELFPAY | PROVIDERS: PCP Internal Medicine; Visit Provider Physician Assistant Surgical | DX: E66.3 Overweight (principal); L98.7 Excessive and redundant skin and subcutaneous tissue; Z90.3 Acquired absence of stomach [part of]; Z68.26 Body mass index [BMI] 26.0-26.9, adult | CPT/HCPCS: 99212 ==

== ENCOUNTER 2022-11-01 09:59 | Outpatient (AMB) | payer MEDICARE, MEDICAID, SELFPAY ==
--- NOTE | 2022-11-01 10:08 | MHC.OFFVIS ---
Intake Vital Signs 11/01/22 10:09 Height 5 ft 3 in Weight 148 lb BMI 26.2 BP 116/56 L Blood Pressure Location Rt brachial Position Sitting Respiration 18 Pulse 83 Pulse Source Pulse Oximeter Pulse Oximetry (%) 98 Oxygen Delivery Method Room Air Intake Visit Reasons: Follow Up/Osteoarthritis Intake Note: patient comes in for follow up. Allergies bupropion [From Wellbutrin] Allergy (Intermediate, Verified 11/01/22 10:08) Itching influenza virus vaccine, specific [FLU VACCINE] Allergy (Unknown, Verified 11/01/22 10:08) RASH latex Allergy (Unknown, Verified 11/01/22 10:08) Rash Sulfa (Sulfonamide Antibiotics) Allergy (Unknown, Verified 11/01/22 10:08) UNKNOWN, itch, itching baclofen Allergy (Verified 11/01/22 10:08) twitching, falling down HPI HPI Comments History of Present Illness Details [place] is in the office for the follow-up and discussion. She was referred to me to perform intra-articular hip injection. She received intra-articular hip injection? on 10/12/2021 for intra-articular hip injection steroids. She reported no pain relief from the procedure. She is 62 years old and could be a good candidate for total hip replacement. I discussed in 2021 with her possibility of referring her to an orthopedic surgeon for evaluation and indications for total hip replacement. The patient came today however to discuss her lower back pain with me. She is suffering from postlaminectomy syndrome. She has pain in the lower back with minimal radiation bilaterally. She reports that she had 4 surgeries on her lumbar spine on her x-ray of the lumbar spine there is intradiscal hardware at L5-S1 interspace as well as L4-5 interspace and there is also transpedicular screws and rods fusing L4-5 vertebra as. Today we had very difficult and prolonged discussion about her condition. I told her that I need to have an MRI of her lumbar spine and 6 views of the x-ray of the lumbar spine to make appropriate decision on what is actually her pain generator. She is very upset that I cannot make my conclusion today. Explained to her that we need to meet again after the evaluation studies MRI and x-ray will be done in our x-ray department. She requests me to start her on gabapentin 800 mg t.i.d.. She reports that in the past she had 400 mg t.i.d. gabapentin and she had initially good pain relieve with this medicine but now she reports that gabapentin ceased helping her. PE she requests me and I will do start her on gabapentin 800 mg t.i.d.. We also will request [facility] to send us the reports of the surgeries he received in this organization. She has her surgeries done 20 years ago so therefore it might be impossible to obtain her records. Prior: ?chronic pain in her back, lower legs, bilateral hips and groins.? Getting worse for the past 6 months .? Denies trauma, injury, or falls.? significant bilateral hips pain that is worsening with movements, prolonged standing, unable to bend down and stiffness. Patient states she had 5 back surgeries in the past, last being a lumbar fusion. She had completed physical therapy years ago without improvement in her symptoms. Currently, she is unable to participate in PT due to severe pain. . CT lumbar spine was consistent with post L4-L5 posterior spinal fusion with interbody disc spacers across L4-L5 and L5-S1 without evidence of hardware fracture or complication. Venous US 07/28/21 was negative for DVT in both lower extremities. ?She has tried gabapentin, Tylenol, ibuprofen, naproxen, meloxicam and topical creams with mild relief. Reports gabapentin has been helpful. She is currently on Suboxone for?history of OUD.?? Patient has been seen in [facility] and [facility] for knee injections in the past.. [facility] Medical History (Updated 11/01/22 @ 10:43 by Ludin De MD) ADHD Bilateral finger arthralgia Bilateral groin pain Bilateral hip pain Cigarette smoker motivated to quit Coccyx pain Community acquired bilateral lower lobe pneumonia COPD (chronic obstructive pulmonary disease) Cough Depression Depressive 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 Diabetes mellitus with diabetic neuropathy, without long-term current use of insulin Dyslipidemia Dysuria Heartburn Hepatomegaly History of pneumonia Injury of left heel Insomnia Left shoulder pain Low back pain Lumbar degenerative disc disease Lumbar spondylosis Mixed incontinence urge and stress Opiate addiction TEA on CPAP Osteoarthritis, hip, bilateral Pain or burning when swallowing Vitamin B12 deficiency Vitamin D deficiency Surgical History H/O colonoscopy H/O neck surgery H/O tubal ligation History of lumbar fusion History of lumbar spinal fusion History of partial hysterectomy Hx of cholecystectomy Status post sleeve gastrectomy Family History Father Aneurysm Other No family history of cancer Social History Household Members: Children Household Members Other:: daughter Housing: House Are you a primary health care attorney to a significant other at home: No Do you presently have visiting nurse or other home services: No Alcohol intake: never Patient Tobacco Use Status: Current everyday Tobacco user Tobacco use type: Cigarette Cigarettes Per Day: 10 e-Cigarette/Vaping Use: Currently Using Second Hand Smoke Exposure: Yes service: No Current occupational status: unemployed Cognitive needs: Yes (walker) Hearing needs: No Vision needs: Yes (glasses) Review of Systems Const All systems reviewed & are unremarkable except as noted in HPI and below ENT Reports Normal hearing present Neuro Reports Normal hearing present, Denies confusion and Denies Sensory deficit (Neuro) Psych Denies confusion Physical Exam Vital Signs: Last Vital Signs Pulse 83 11/01/22 10:09 Resp 18 11/01/22 10:09 BP 116/56 L 11/01/22 10:09 Pulse Ox 98 11/01/22 10:09 Oxygen Delivery Method Room Air 11/01/22 10:09 BMI result Body Mass Index 26.2 Const General: cooperative, alert, awake, in distress (due to pain) mild and moderate and anxious; No confusion Nutritional Appearance: obese morbidly obese Orientation/consciousness: patient oriented x3 and No confusion Limitations: ambulation with walker HEENT Head: Yes normal to inspection, Yes normocephalic and No occipital foramen tenderness Ears: hearing grossly normal bilaterally and external ears normal Face and sinus: Yes normal facial exam and Yes face symmetric Eyes General: appearance normal, both eyes and all related structures Visual Pandey: normal visual pandey by confrontation Pupils: Equal, round and reactive pupils present EOM: EOMs intact bilaterally Neck Neck: Yes normal visual inspection, Yes full ROM, Yes no lymphadenopathy, Yes supple, No anterior neck swelling and Yes no JVD Chest Chest palpation & inspection: normal inspection of the chest Resp Effort & Inspection: normal respiratory effort, able to speak in complete sentences, no audible wheezes, no cough, no respiratory distress and symmetric chest movement Cardio Jugular venous distension: no JVD Bruits: no carotid bruits Peripheral pulses: radial pulses present, posterior tibial pulses present and dorsalis pedis present GI Inspection: Yes normal to inspection, No distended, Yes Abdominal panniculus present and Yes obesity Palpation (GI): Soft to palpation and nontender General: Yes no CVA tenderness Back/Spine/Pelvis Other: Limited exam due to significant back and groin pain with movements or walking, able to stand on heels and tip toes with moderate difficulty due to pain. Can flex forward up to 50-60 degrees and extend to 5-10 degrees before experiencing moderate lumbar pain. Facet loading positive bilaterally, ROM limited to pain. Demonstrates 4/5 strength of quadriceps bilaterally as well as flexion/dorsiflexion of bilateral feet against resistance. 2+ pedal pulses bilaterally. Straight leg rise with dorsiflexion positive on the left. Significant groin pain with bilateral internal and external hip rotations. Antalgic gate, ambulates slowly with walker. Back: no CVA tenderness Cervical Spine: cervical ROM normal Thoracic/Lumbar Spine: thoracic and lumbar spine normal to inspection, Thoracic/lumbar spine scar(s), Lasegue's sign positive, pain with thoraco-lumbar ROM, paraspinal muscle tenderness, thoraco-lumbar ROM limited with forward flexion (WNL) and with lateral flexion to the left (limited by pain) and straight leg raise positive left other (at 20 degrees) Pelvis: pain with anterior-posterior compression, pain with lateral compression, buttock tenderness bilaterally and no sciatic notch tenderness Skin General skin exam: no rashes or lesions noted Neuro General: patient oriented x3, moves all extremities, Normal light touch and pain sensation, deep tendon reflexes 2+ bilaterally and No confusion Cranial nerves: Yes Equal, round and reactive pupils present and Yes Normal hearing present Cognition (Neuro): normal cognition Gait exam (Neuro): Antalgic gait present and Assistive device used Motor exam (neuro): no tremor noted and Normal motor muscle tone present throughout Sensory Exam: No Sensory deficit (Neuro) Deep tendon reflexes (DTR's): Right patellar reflex intensity grade: 1+, Left patellar reflex intensity grade: 2+, Right ankle reflex intensity grade: 1+ and Left ankle reflex intensity grade: 1+ Extrem General: Yes full ROM, Yes capillary refill normal, Yes no clubbing, cyanosis or edema and Yes no calf tenderness Psych Appearance: grossly normal Mental Status: mental status grossly normal Speech and movement: Normal speech and movement present, Pressured speech present and Psychomotor agitation in speech present Affect: normal affect and Irritable affect present Attitude: cooperative and Avoids eye contact (attititude/behavior) Thought process: Normal thought process present and Circumstantial thought process present Thought content: Normal thought content present, suicidality, no hallucinations and No Depressive thoughts present Insight: Good insight present (Psych) Judgement: Good judgement present (Psych) Results Reviewed Results Reviewed: XR BILATERAL HIPS WITH AP PELVIS 08/03/21 FINDINGS: No acute fractures or malalignment. The femoral heads are well-seated in their respective acetabula. Mild to moderate degenerative osteoarthritis in both hips with joint space narrowing, subcortical a cyst and osteophytes. SI joints are symmetric. Pubic symphysis is maintained. Partially imaged lumbar fusion hardware. IMPRESSION: No acute fractures or malalignment. 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 CT LUMBAR SPINE WITHOUT CONTRAST 07/28/21 FINDINGS: There are 5 nonrib-bearing lumbar-type vertebral bodies. No acute fracture. There is reversal of the usual lumbar lordosis. Status post L4-L5 posterior spinal fusion with interbody disc spacers across L4-L5 and L5-S1. No evidence of hardware fracture or complication. Susceptibility artifact from fusion hardware somewhat limits evaluation at these levels. Moderate multilevel degenerative disc disease at additional levels with Schmorl's nodes and vacuum disc phenomenon with multilevel facet arthropathy. Streak artifact obscures evaluation of the canal at L4-L5 and L5-S1. At L2-L3 there is a small posterior disc osteophyte complex resulting in mild canal stenosis. No severe canal stenosis at the visualized levels. Facet arthropathy results in mild neural foraminal narrowing on the left at L5-S1. At L4-L5 the right L4 exiting nerve root appears to contact a small broad-based disc bulge. No prevertebral soft tissue swelling. Limited views of the abdomen are remarkable for a circumaortic left renal vein. Surgical clips are seen in the left pelvis. IMPRESSION: Status post L4-L5 posterior spinal fusion with interbody disc spacers across L4-L5 and L5-S1. No evidence of hardware fracture or complication. Moderate multilevel degenerative disc disease with multilevel facet arthropathy, result of the usual cervical spine lordosis and mild canal stenosis at L2-L3. No severe canal stenosis appreciated however the canal is obscured by streak artifact at L4-L5 and L5-S1 secondary to hardware. At L4-L5 the right L4 exiting nerve root appears to contact a small broad-based disc bulge. Facet arthropathy results in mild neural foraminal narrowing on the left at L5-S1. US VENOUS ULTRASOUND WITH DOPPLER LOWER EXTREMITY, BILATERAL 07/28/21 CLINICAL INFORMATION: Bilateral lower extremity swelling and pain. FINDINGS: RIGHT: There is normal venous compression and respiratory variation and augmented flow. The visualized common femoral vein, superficial femoral vein, profunda femoral vein, popliteal vein, and the trifurcation region shows no evidence of deep venous thrombosis. There is no significant popliteal fossa cyst. LEFT: There is normal venous compression and respiratory variation and augmented flow. The visualized common femoral vein, superficial femoral vein, profunda femoral vein, popliteal vein, and the trifurcation region shows no evidence of deep venous thrombosis. There is no significant popliteal fossa cyst. IMPRESSION: No DVT demonstrated in the bilateral lower extremity. Assessment & Plan Assessment & Plan (1) Postlaminectomy syndrome: Code(s): M96.1 - Postlaminectomy syndrome, not elsewhere classified (2) History of lumbar spinal fusion: Code(s): Z98.1 - Arthrodesis status (3) Lumbar degenerative disc disease: Code(s): M51.36 - Other intervertebral disc degeneration, lumbar region (4) Lumbar spondylosis: Code(s): M47.816 - Spondylosis without myelopathy or radiculopathy, lumbar region (5) Lumbar radiculopathy: Code(s): M54.16 - Radiculopathy, lumbar region (6) Osteoarthritis, hip, bilateral: Code(s): M16.0 - Bilateral primary osteoarthritis of hip (7) Bilateral hip pain: Code(s): M25.551 - Pain in right hip; M25.552 - Pain in left hip (8) Low back pain: Code(s): M54.5 - Low back pain Qualifiers: Back pain laterality: bilateral Chronicity: chronic Sciatica presence: without sciatica Qualified Code(s): M54.50 - Low back pain, unspecified; G89.29 - Other chronic pain Plan 1. Patient with chronic pain syndrome related to arthritis and degenerative changes of her lumbar spine, s/p 5 back surgeries with lumbar fusion. Her most troublesome pain is consistent with lower back pain without radiation. She is working with walker, she reports she cannot ambulate normally because of her lower back pain. 2.Trial of oxaprozin as she has failed many over the counter and prescribed NSAIDs. Patient is aware to take it with food once daily, to avoid other NSAIDs and monitor for any side effects. 3. She failed hip injection to alleviate pain in the hips. However her concerns now are lower back pain. I will send her for x-ray of the lumbar spine. I also will preauthorize her for MRIs of the lumbar spine. We will try to obtain medical records about her procedures on the lower back. It was long time ago and the maybe not available. 4. This patient is on Suboxone for OUD. We can offer her neuromodulation treatments provided she can not pass through psychological evaluation. She was also diagnosed with thrombocytopenia however the range of platelets are between 130 in [id number] per micro L. 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 5. I will increase her gabapentin to 800 mg t.i.d.. 6. When her MRI will be ready she will schedule appointment with us again. Anticoagulation: Patient not on anticoagulant Justification for interventional therapy: ? Patient with average pain > 6/10 ? Patient has exhausted conservative therapy ? Patient unable to tolerate physical therapy due to pain The risks, consequences, alternatives, and benefits of various treatment options were discussed with the patient in great detail, including conservative management, injections and procedures. I informed her of the hyperglycemic effects of steroids. Orders: Orders XR lumbar spine 6V w bending Today M96.1 - Postlaminectomy syndrome, not elsewhere classified MR lumbar spine wo/w con Today M96.1 - Postlaminectomy syndrome, not elsewhere classified Medications: New gabapentin 800 mg PO TID 30 days 90 tabs 6RF Discontinued gabapentin Discontinued Reason: Doctor's Order 400 mg PO TID 90 caps 6RF E11.40 - Type 2 diabetes mellitus with diabetic neuropathy, unspecified Coding Level of Care Code Est Pt Level 4 (50274) Diagnoses Postlaminectomy syndrome M96.1 History of lumbar spinal fusion Z98.1 Lumbar degenerative disc disease M51.36 Lumbar spondylosis M47.816 Lumbar radiculopathy M54.16 Osteoarthritis, hip, bilateral M16.0 Bilateral hip pain M25.551; M25.552 Low back pain M54.50; G89.29 Back pain laterality: bilateral Chronicity: chronic Sciatica presence: without sciatica
[2022-11-01 10:09] VITALS: BP 116/56; PULSE 83; RESP 18; O2SAT 98; BMI 26.2
== END 2022-11-01 10:43 | disposition home or self-care (01) ==
PROVIDERS: PCP Internal Medicine; Visit Provider Anesthesiology
DX: M96.1 Postlaminectomy syndrome, not elsewhere classified (principal); Z98.1 Arthrodesis status; M51.36 Other intervertebral disc degeneration, lumbar region; M47.816 Spondylosis without myelopathy or radiculopathy, lumbar region; M54.16 Radiculopathy, lumbar region; M16.0 Bilateral primary osteoarthritis of hip; M25.551 Pain in right hip; M25.552 Pain in left hip; M54.50 Low back pain, unspecified; G89.29 Other chronic pain
CPT/HCPCS: 99214

== ENCOUNTER → 2022-11-01 09:59 | Outpatient (BNVA) | payer MEDICARE, MEDICAID, OTHER, SELFPAY | PROVIDERS: PCP Internal Medicine; Visit Provider Anesthesiology | DX: M96.1 Postlaminectomy syndrome, not elsewhere classified (principal); M51.36 Other intervertebral disc degeneration, lumbar region; M47.26 Other spondylosis with radiculopathy, lumbar region; M16.0 Bilateral primary osteoarthritis of hip; G89.29 Other chronic pain; M54.50 Low back pain, unspecified; M25.551 Pain in right hip; M25.552 Pain in left hip; Z98.1 Arthrodesis status | CPT/HCPCS: 99212 ==

== ENCOUNTER 2022-11-12 10:47 | Outpatient (REF) | payer MEDICARE, MEDICAID, SELFPAY ==
--- NOTE | ~2022-11-12 | XR_ITS ---
EXAMINATION: XR LUMBOSACRAL SPINE WITH OBLIQUES CLINICAL INFORMATION: Postlaminectomy syndrome. COMPARISON: None available. TECHNIQUE: AP, both oblique, and lateral views of the lumbar spine. Lateral view of the lumbosacral junction. FINDINGS: There is reversal of lumbar lordosis with disc cages at L4-L5 and L5-S1 disc level. There is posterior hardware from L4 through L5 vertebra. There are degenerative disc changes at all lumbar disc levels with moderate bridging osteophytes at L1-L2 and L2-L3 disc levels. No aggressive lytic or sclerotic process seen. The paravertebral soft tissues are normal. SI joints are normal. XR/XR lumbar spine 6V w bending IMPRESSION: 1. Degenerative disc changes at all lumbar disc levels with moderate bridging osteophytes at the L1-L2 and L2-L3 disc levels. 2. There is posterior hardware from L4 through L5 vertebra and disc cages at the L4-L5 and L5-S1 disc level. No acute fracture or dislocation seen.
== END 2022-11-12 10:48 | disposition home or self-care (01) ==
LOC: HO.XRAY 10:47
PROVIDERS: PCP Internal Medicine; Visit Provider Anesthesiology
DX: M96.1 Postlaminectomy syndrome, not elsewhere classified (principal)
CPT/HCPCS: 72114

== ENCOUNTER 2022-11-22 13:48 | Outpatient (AMB) | payer MEDICARE, MEDICAID, SELFPAY ==
[2022-11-22 14:53] VITALS: BP 122/60; PULSE 79; O2SAT 94; BMI 26.4
--- NOTE | 2022-11-22 14:53 | MHC.PC.OV ---
Vital Signs 11/22/22 14:53 Height 5 ft 3 in Weight 149 lb BMI 26.4 BP 122/60 Blood Pressure Location Rt brachial Position Sitting Pulse 79 Pulse Source Pulse Oximeter Pulse Oximetry (%) 94 Oxygen Delivery Method Room Air Intake Visit Reasons: Urinating in Bed Intake Note: pt is here today for urinating in bed, Allergies bupropion [From Wellbutrin] Allergy (Intermediate, Verified 11/22/22 15:10) Itching influenza virus vaccine, specific [FLU VACCINE] Allergy (Unknown, Verified 11/22/22 15:10) RASH latex Allergy (Unknown, Verified 11/22/22 15:10) Rash Sulfa (Sulfonamide Antibiotics) Allergy (Unknown, Verified 11/22/22 15:10) UNKNOWN, itch, itching baclofen Allergy (Verified 11/22/22 15:10) twitching, falling down Medication List - Last Reconciled 11/22/22 by Melissa Topete MD albuterol sulfate 2.5 mg (3 mL) inhalation Q6H PRN albuterol sulfate 90 mcg/actuation (Ventolin HFA) 2 puffs PO QID PRN atorvastatin 20 mg PO DAILY buprenorphine-naloxone 8-2 mg 1 strip sublingual BID clotrimazole 1% 1 appl topical BID dextroamphetamine-amphetamine 30 mg 30 mg PO BID@0900,1300 diclofenac sodium 1% 2 grams topical QID PRN divalproex ER 1,500 mg PO QPM famotidine 40 mg PO BEDTIME gabapentin 800 mg PO TID 30 days linaclotide (Linzess) 145 mcg PO DAILY nystatin 1 mL PO QID pantoprazole 40 mg PO DAILY risperidone (Risperdal) 2 mg PO BEDTIME sertraline 100 mg PO QAM tamsulosin (Flomax) 0.4 mg PO DAILY trazodone 3 tabs PO BEDTIME Tobacco use date assessed: 11/22/22 Dental Screening Dental Screen Date: 11/22/22 Did you have a dental visit in the last 12 months?: Yes Did you have a dental problem in the last 6 months where you did not have access to dental care?: No Was dental information given to patient?: No HPI Urinating in Bed HPI Details 62 year old lady with diabetes mellitus, dyslipidemia, thrombocytopenia, with chronic low back pain status post postlaminectomy syndrome, here today complaining of enuresis, the last several days now. She denies any urinary frequency, dysuria. Diabetes mellitus stable and well controlled with present treatment, with hemoglobin A1c today at 5.3%. Urinalysis done showed presence of leukocytes, no nitrites no blood, no glucose with positive ketones. Patient's reports feeling uncomfortable , with sensation of something falling inside her vaginal canal. [facility] Medical History (Updated 11/22/22 @ 15:29 by Melissa Topete MD) ADHD Bilateral finger arthralgia Bilateral groin pain Bilateral hip pain Cigarette smoker motivated to quit Coccyx pain Community acquired bilateral lower lobe pneumonia COPD (chronic obstructive pulmonary disease) Cough Depression Depressive 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 Diabetes mellitus with diabetic neuropathy, without long-term current use of insulin Dyslipidemia Dysuria Heartburn Hepatomegaly History of pneumonia Injury of left heel Insomnia Left shoulder pain Low back pain Lumbar degenerative disc disease Lumbar spondylosis Mixed incontinence urge and stress Opiate addiction TEA on CPAP Osteoarthritis, hip, bilateral Pain or burning when swallowing Prolapse of female pelvic organs Vitamin B12 deficiency Vitamin D deficiency Surgical History H/O colonoscopy H/O neck surgery H/O tubal ligation History of lumbar fusion History of lumbar spinal fusion History of partial hysterectomy Hx of cholecystectomy Status post sleeve gastrectomy Family History Father Aneurysm Other No family history of cancer Social History Household Members: Children Household Members Other:: daughter Housing: House Are you a primary hearing healthcare practitioner to a significant other at home: No Do you presently have visiting nurse or other home services: No Alcohol intake: never Patient Tobacco Use Status: Current everyday Tobacco user Tobacco use type: Cigarette Cigarettes Per Day: 10 e-Cigarette/Vaping Use: Currently Using Second Hand Smoke Exposure: Yes service: No Current occupational status: unemployed Cognitive needs: Yes (walker) Hearing needs: No Vision needs: Yes (glasses) Questionnaire Thrive Questionnaire Date Thrive assessed: 05/07/22 AUDIT C Alcohol Use Questionnaire (AUDIT-C) 1. How often do you have a drink containing alcohol?: Never 3. How often do you have six or more drinks on one occasion?: Never Total Score: 0 Score Reviewed/Action Taken: Yes AMANDA-7 AMB Questionnaire AMANDA-7 Date AMANDA - 7 assessed: 05/07/22 Source: Developed by Drs. Mark Cota, Alva Ghotra, Adis Kramer and colleagues, with an educational adeel from [employer]. Review of Systems Const Denies chills, Denies fever(s) and Denies headache(s) ENT Reports no additional complaints, Denies vertigo and Denies headache(s) Card Denies chest pain, Denies chest pain at rest, Denies rapid heart rate, Denies irregular heart rhythm, Denies lightheadedness, Denies palpitations and Denies dyspnea Resp Denies chest congestion, Denies cough and Denies dyspnea GI Denies abdominal pain, Denies melena, Denies bloating, Denies change in bowel habits, Denies change in stool character, Denies heartburn and Denies fecal incontinence Denies urinary frequency, Denies difficulty voiding, Denies genital pruritis, Denies genital lesions, Denies dysuria, Denies urinary hesitancy, Reports urinary urgency and Denies vaginal discharge Musc Denies abnormal gait Neuro Denies abnormal gait, Denies burning sensations, Denies vertigo, Denies headache(s), Denies lack of coordination and Denies focal weakness Endo Denies polyphagia, Denies polydipsia and Denies palpitations Physical exam (Primary Care) Vital Signs: Last Vital Signs Pulse 79 11/22/22 14:53 BP 122/60 11/22/22 14:53 Pulse Ox 94 11/22/22 14:53 Oxygen Delivery Method Room Air 11/22/22 14:53 BMI result Body Mass Index 26.4 Tobacco/Smoking Status: Tobacco use Status Tobacco use date assessed 11/22/22 11/22/22 14:56 Patient Tobacco Use Status Current everyday Tobacco 11/22/22 14:56 Tobacco use type Cigarette 11/22/22 14:56 e-Cigarette/Vaping Use Currently Using 11/22/22 14:56 Thrive Assessment: Date of Thrive Assessment Date Thrive assessed 05/07/22 11/22/22 14:56 Const Other: Alert oriented x3, in no acute cardiorespiratory distress noted, ambulatory with a stooped posture and antalgic gait HENMT Head: Yes normocephalic and Yes atraumatic Face and sinus: Yes face symmetric Resp Auscultation: clear to auscultation bilaterally Cardio Other: S1-S2 present regular rate and rhythm GI Palpation (GI): Soft to palpation, nontender, no guarding and no masses General: Yes no CVA tenderness External Female Exam: normal external appearance and normal appearance of the urethra Speculum Exam - Vagina: normal appearance of the vagina and normal vaginal discharge Bimanual Exam- Adnexa, other: cystocele Back/Spine/Pelvis Back: no CVA tenderness Thoracic/Lumbar Spine: Lasegue's sign negative, bend over test abnormal and paraspinal muscle tenderness Results AMB Hemoglobin A1c AMB Hemoglobin A1c 5.3 % Last Edit by Yoko Wilder CMA on 11/22/22 15:19 AMB Urinalysis, Automated UA Leukoctes 70 Joanna/uL Last Edit by Yoko Wilder CMA on 11/22/22 15:21 UA Nitrite Negative Last Edit by Yoko Wilder CMA on 11/22/22 15:21 UA Urobilinogen 1 mg/dL Last Edit by Yoko Wilder CMA on 11/22/22 15:21 UA Protein 30 mg/dL Last Edit by Yoko Wilder CMA on 11/22/22 15:21 UA pH 5.5 Last Edit by Yoko Wilder CMA on 11/22/22 15:21 UA Blood 0 Benjamin/uL Last Edit by Yoko Wilder CMA on 11/22/22 15:21 UA Specific [place] 1.025 Last Edit by Yoko Wilder CMA on 11/22/22 15:21 UA Ketone Positive Last Edit by Yoko Wilder CMA on 11/22/22 15:21 UA Bilirubin 2 mg/dL Last Edit by Yoko Wilder CMA on 11/22/22 15:21 UA Glucose 0 mg/dL Last Edit by Yoko Wilder CMA on 11/22/22 15:21 Results Reviewed Results Reviewed: Laboratory Last Values Hgb A1c (Clinic) 5.3 % (4.0-6.0) 11/22/22 15:13 Urine pH (Auto) 5.5 11/22/22 15:13 Specific [place] (Auto) 1.025 11/22/22 15:13 Urine Protein (Auto) 30 mg/dL 11/22/22 15:13 Glucose (UA)(Auto) 0 mg/dL 11/22/22 15:13 Urine Ketones (Auto) Positive 11/22/22 15:13 Urine Blood (Auto) 0 Benjamin/uL 11/22/22 15:13 Urine Nitrite (Auto) Negative 11/22/22 15:13 Urine Bilirubin (Auto) 2 mg/dL 11/22/22 15:13 Urine Urobilinogen (Auto) 1 mg/dL 11/22/22 15:13 Leukocyte Esterase (Auto) 70 Joanna/uL 11/22/22 15:13 Assessment and Plan Assessment & Plan (1) Urinary incontinence: Code(s): R32 - Unspecified urinary incontinence Plan: Urine culture sent, empirically started on nitrofurantoin 100 mg per capsule to take 1 every 12 hours for 10 days. (2) Prolapse of female pelvic organs: Code(s): N81.9 - Female genital prolapse, unspecified Plan: Urogynecology consult order (3) Dyslipidemia: Code(s): E78.5 - Hyperlipidemia, unspecified Plan: Ordered a fasting lipid panel to be recheck in 3 months. Continue atorvastatin 20 mg daily (4) Diabetes mellitus with diabetic neuropathy, without long-term current use of insulin: Code(s): E11.40 - Type 2 diabetes mellitus with diabetic neuropathy, unspecified Plan: Recent lab results reviewed with patient, with sugar and hemoglobin A1c stable and at goal. Reinforced diabetic diet and regular exercise with patient. Counseled regarding importance of yearly diabetes retinopathy screening. Patient advised to inspect feet daily, for any signs of injury, callus or infection. Compliance with diet and regular exercise again stressed. Blood pressure goal is less than 130/80, goal LDL is less than 100 and goal hemoglobin A1c is less than 7% Orders: Orders Hemoglobin A1c 3 Months E11.40 - Type 2 diabetes mellitus with diabetic neuropathy, unspecified, E78.5 - Hyperlipidemia, unspecified Basic Metabolic Panel Fasting 3 Months E11.40 - Type 2 diabetes mellitus with diabetic neuropathy, unspecified, E78.5 - Hyperlipidemia, unspecified Lipid Panel 3 Months E11.40 - Type 2 diabetes mellitus with diabetic neuropathy, unspecified, E78.5 - Hyperlipidemia, unspecified Microalbumin, Random (w Creat) 3 Months E11.40 - Type 2 diabetes mellitus with diabetic neuropathy, unspecified, E78.5 - Hyperlipidemia, unspecified Urine Culture 11/23/22 R32 - Unspecified urinary incontinence, R35.0 - Frequency of micturition AMB Hemoglobin A1c 11/22/22 E11.40 - Type 2 diabetes mellitus with diabetic neuropathy, unspecified AMB Urinalysis Automated 11/22/22 Z13.9 - Encounter for screening, unspecified Referrals Urogynecology Referral N81.9 - Female genital prolapse, unspecified, R32 - Unspecified urinary incontinence Medications: New nitrofurantoin macrocrystal must administer with a meal/food 100 mg PO Q12H 20 caps 0RF Coding Level of Care Code Est Pt Level 3 (21786) Diagnoses Urinary incontinence R32 Prolapse of female pelvic organs N81.9 Dyslipidemia E78.5 Diabetes mellitus with diabetic neuropathy, without long-term current use of insulin E11.40
== END 2022-11-22 15:44 | disposition home or self-care (01) ==
PROVIDERS: PCP Internal Medicine; Visit Provider Internal Medicine
DX: R32 Unspecified urinary incontinence (principal); N81.9 Female genital prolapse, unspecified; E78.5 Hyperlipidemia, unspecified; E11.40 Type 2 diabetes mellitus with diabetic neuropathy, unspecified
CPT/HCPCS: 81003; 83036; 99213

== ENCOUNTER 2022-11-22 15:42 | Outpatient (REF) | payer MEDICARE, MEDICAID, SELFPAY | END 2022-11-22 15:43 | disposition home or self-care (01) | LOC: HO.LAB 15:42 | PROVIDERS: Visit Provider Internal Medicine | DX: R32 Unspecified urinary incontinence (principal); R35.0 Frequency of micturition | CPT/HCPCS: 87086 ==

== ENCOUNTER 2022-12-13 10:12 | Outpatient (AMB) | payer MEDICARE, MEDICAID, SELFPAY ==
--- NOTE | 2022-12-13 10:13 | MHC.OFFVIS ---
Intake Vital Signs 12/13/22 10:20 Height 5 ft 3 in Weight 149 lb BMI 26.4 BP 108/58 L Blood Pressure Location Rt brachial Position Sitting Respiration 18 Pulse 63 Pulse Source Pulse Oximeter Pulse Oximetry (%) 97 Oxygen Delivery Method Room Air Intake Visit Reasons: Follow up/MRI, X-Ray results Intake Note: patient comes in for follow up. Allergies bupropion [From Wellbutrin] Allergy (Intermediate, Verified 12/13/22 10:20) Itching influenza virus vaccine, specific [FLU VACCINE] Allergy (Unknown, Verified 12/13/22 10:20) RASH latex Allergy (Unknown, Verified 12/13/22 10:20) Rash Sulfa (Sulfonamide Antibiotics) Allergy (Unknown, Verified 12/13/22 10:20) UNKNOWN, itch, itching baclofen Allergy (Verified 12/13/22 10:20) twitching, falling down HPI HPI Comments History of Present Illness Details Justa is in the office for the follow-up and discussion. She was referred to me to perform intra-articular hip injection. She received intra-articular hip injection? on 10/12/2021 for intra-articular hip injection steroids. She reported no pain relief from the procedure. She is 62 years old and could be a good candidate for total hip replacement. I discussed in 2021 with her possibility of referring her to an orthopedic surgeon for evaluation and indications for total hip replacement. The patient came today however to discuss her lower back pain with me. She is suffering from postlaminectomy syndrome. She has pain in the lower back with minimal radiation bilaterally. She reports that she had 4 surgeries on her lumbar spine on her x-ray of the lumbar spine there is intradiscal hardware at L5-S1 interspace as well as L4-5 interspace and there is also transpedicular screws and rods fusing L4-5 vertebra as. T I send her to MRI of the lumbar spine results of which dictated as below. She has multiple changes in the MRI specially above the level of her fusion. She has reversal of spinal lordosis. She has kissing osteophytes of the L1 through L3 and into L4 lumbar vertebra as. Those are most seen on the x-ray which was done for her as well. She has Modic type 1 changes in upper lumbar vertebra as. She has minimal facet arthritis. She has some ligamentum flavum thickening. There is no spinal canal or foraminal stenosis on any levels. Therefore I think that this patient is suffering from postlaminectomy syndrome. I would like to consider neuromodulation for her including pain pump and spinal cord stimulator. I will send her for psychological evaluation 1st. Also there is significant Modic changes which could be addressed with intracept procedure. She also reported today she that she fell in her house and now her right-sided ribs are hurting her. I will prescribe her ibuprofen 400 mg for 10 days on the clock not p.r.n. to take for this kind of pain. Prior: ?chronic pain in her back, lower legs, bilateral hips and groins.? Getting worse for the past 6 months .? Denies trauma, injury, or falls.? significant bilateral hips pain that is worsening with movements, prolonged standing, unable to bend down and stiffness. Patient states she had 5 back surgeries in the past, last being a lumbar fusion. She had completed physical therapy years ago without improvement in her symptoms. Currently, she is unable to participate in PT due to severe pain. . CT lumbar spine was consistent with post L4-L5 posterior spinal fusion with interbody disc spacers across L4-L5 and L5-S1 without evidence of hardware fracture or complication. Venous US 07/28/21 was negative for DVT in both lower extremities. ?She has tried gabapentin, Tylenol, ibuprofen, naproxen, meloxicam and topical creams with mild relief. Reports gabapentin has been helpful. She is currently on Suboxone for?history of OUD.?? Patient has been seen in [facility] and [facility] for knee injections in the past. COUNT INCLUDES THE [facility] Medical History (Updated 11/22/22 @ 15:29 by Melissa Topete MD) ADHD Bilateral finger arthralgia Bilateral groin pain Bilateral hip pain Cigarette smoker motivated to quit Coccyx pain Community acquired bilateral lower lobe pneumonia COPD (chronic obstructive pulmonary disease) Cough Depression Depressive 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 Diabetes mellitus with diabetic neuropathy, without long-term current use of insulin Dyslipidemia Dysuria Heartburn Hepatomegaly History of pneumonia Injury of left heel Insomnia Left shoulder pain Low back pain Lumbar degenerative disc disease Lumbar spondylosis Mixed incontinence urge and stress Opiate addiction TEA on CPAP Osteoarthritis, hip, bilateral Pain or burning when swallowing Prolapse of female pelvic organs Vitamin B12 deficiency Vitamin D deficiency Surgical History H/O colonoscopy H/O neck surgery H/O tubal ligation History of lumbar fusion History of lumbar spinal fusion History of partial hysterectomy Hx of cholecystectomy Status post sleeve gastrectomy Family History Father Aneurysm Other No family history of cancer Social History Household Members: Children Household Members Other:: daughter Housing: House Are you a primary transitional care manager to a significant other at home: No Do you presently have visiting nurse or other home services: No Alcohol intake: never Patient Tobacco Use Status: Current everyday Tobacco user Tobacco use type: Cigarette Cigarettes Per Day: 10 e-Cigarette/Vaping Use: Currently Using Second Hand Smoke Exposure: Yes service: No Current occupational status: unemployed Cognitive needs: Yes (walker) Hearing needs: No Vision needs: Yes (glasses) Review of Systems Const All systems reviewed & are unremarkable except as noted in HPI and below ENT Reports Normal hearing present Neuro Reports Normal hearing present, Denies confusion and Denies Sensory deficit (Neuro) Psych Denies confusion Physical Exam Vital Signs: Last Vital Signs Pulse 63 12/13/22 10:20 Resp 18 12/13/22 10:20 BP 108/58 L 12/13/22 10:20 Pulse Ox 97 12/13/22 10:20 Oxygen Delivery Method Room Air 12/13/22 10:20 BMI result Body Mass Index 26.4 Const General: cooperative, alert, awake, in distress (due to pain) mild and moderate and anxious; No confusion Nutritional Appearance: obese morbidly obese Orientation/consciousness: patient oriented x3 and No confusion Limitations: ambulation with walker HEENT Head: Yes normal to inspection, Yes normocephalic and No occipital foramen tenderness Ears: hearing grossly normal bilaterally and external ears normal Face and sinus: Yes normal facial exam and Yes face symmetric Eyes General: appearance normal, both eyes and all related structures Visual Evangelista: normal visual evangelista by confrontation Pupils: Equal, round and reactive pupils present EOM: EOMs intact bilaterally Neck Neck: Yes normal visual inspection, Yes full ROM, Yes no lymphadenopathy, Yes supple, No anterior neck swelling and Yes no JVD Chest Chest palpation & inspection: normal inspection of the chest Resp Effort & Inspection: normal respiratory effort, able to speak in complete sentences, no audible wheezes, no cough, no respiratory distress and symmetric chest movement Cardio Jugular venous distension: no JVD Bruits: no carotid bruits Peripheral pulses: radial pulses present, posterior tibial pulses present and dorsalis pedis present GI Inspection: Yes normal to inspection, No distended, Yes Abdominal panniculus present and Yes obesity Palpation (GI): Soft to palpation and nontender General: Yes no CVA tenderness Back/Spine/Pelvis Other: Limited exam due to significant back and groin pain with movements or walking, able to stand on heels and tip toes with moderate difficulty due to pain. Can flex forward up to 50-60 degrees and extend to 5-10 degrees before experiencing moderate lumbar pain. Facet loading positive bilaterally, ROM limited to pain. Demonstrates 4/5 strength of quadriceps bilaterally as well as flexion/dorsiflexion of bilateral feet against resistance. 2+ pedal pulses bilaterally. Straight leg rise with dorsiflexion positive on the left. Significant groin pain with bilateral internal and external hip rotations. Antalgic gate, ambulates slowly with walker. Back: no CVA tenderness Cervical Spine: cervical ROM normal Thoracic/Lumbar Spine: thoracic and lumbar spine normal to inspection, Thoracic/lumbar spine scar(s), Lasegue's sign positive, pain with thoraco-lumbar ROM, paraspinal muscle tenderness, thoraco-lumbar ROM limited with forward flexion (WNL) and with lateral flexion to the left (limited by pain) and straight leg raise positive left other (at 20 degrees) Pelvis: pain with anterior-posterior compression, pain with lateral compression, buttock tenderness bilaterally and no sciatic notch tenderness Skin General skin exam: no rashes or lesions noted Neuro General: patient oriented x3, moves all extremities, Normal light touch and pain sensation, deep tendon reflexes 2+ bilaterally and No confusion Cranial nerves: Yes Equal, round and reactive pupils present and Yes Normal hearing present Cognition (Neuro): normal cognition Gait exam (Neuro): Antalgic gait present and Assistive device used Motor exam (neuro): no tremor noted and Normal motor muscle tone present throughout Sensory Exam: No Sensory deficit (Neuro) Deep tendon reflexes (DTR's): Right patellar reflex intensity grade: 1+, Left patellar reflex intensity grade: 2+, Right ankle reflex intensity grade: 1+ and Left ankle reflex intensity grade: 1+ Extrem General: Yes full ROM, Yes capillary refill normal, Yes no clubbing, cyanosis or edema and Yes no calf tenderness Psych Appearance: grossly normal Mental Status: mental status grossly normal Speech and movement: Normal speech and movement present, Pressured speech present and Psychomotor agitation in speech present Affect: normal affect and Irritable affect present Attitude: cooperative and Avoids eye contact (attititude/behavior) Thought process: Normal thought process present and Circumstantial thought process present Thought content: Normal thought content present, suicidality, no hallucinations and No Depressive thoughts present Insight: Good insight present (Psych) Judgement: Good judgement present (Psych) Results Reviewed Results Reviewed: MRI lumbar spine without contrast 11/19/2022 Interpretation the conus is identified at T12-L1 level with normal signal and no evidence of a mass. There is straightening of the usual lumbar lordosis. There are normal vertebral body heights. No bone marrow edema is seen given the metallic artifact. T10-T11 no disc is herniation is seen. T11-T12 minimal disc bulge T12-L1 no disc herniation. L1-L2 no disc herniation. L2-L3 loss of disc space height with very prominent anterior endplate Modic type discogenic reactive changes. There are mild broad-based disc protrusions which mildly indents on the thecal sac. The neural foramina is patent. At L3-L4 level there is a mild broad-based disc bulge with minimally indents the thecal sacs neural foramina patent. Prominent Modic type 1 endplate discogenic reactive changes. L4-L5 there are status post discectomy and fusion changes within intervertebral disc spacers and bilateral pedicle screws in the L4 and L5 vertebral bodies. No canal or foraminal narrowing is seen given the metallic artifact. Prominent Modic type 1 endplate discogenic reactive changes. L5-S1 there status post cystectomy infusion changes within the intervertebral disc spacer. No canal or foraminal narrowing is seen given the metallic artifact. There is no evidence of any a symmetric atrophy or muscle edema involving visualized paraspinal or iliopsoas muscle. A tiny T2 bright rounded focus associated with right kidney statistically may be represented renal cyst. Addendum A colon findings: Postsurgical changes from instrumental posterior spinal fusion spanning L4-5 with interbody spacer in place. There is also interbody device at L5-S1. Slight reversal of usual lumbar lordosis. No significant spondylolisthesis. No suspicious marrow spinal of focal osseous lesions. Endplate marrow edema at L2-L3. There is also some mild edema involving anterior aspect of L1 vertebral body. Vertebral body heights are maintained. The intervertebral discs are normal height and signal. The conus medullaris terminates the level of L1. The distal spinal cord is normal in appearance. The cauda equina nerve roots appears normal. There is some fatty atrophy as well as mild edema involving the medial aspect of psoas muscles. Likely reflecting sequela of denervation. Limited evaluation of intra-abdominal structures without significant abnormalities. The abdominal aorta is normal contour in caliber. Spinal levels: T12-L1 mild facet arthropathy no significant spinal canal or neural foraminal narrowing. L1-L2 no significant spinal canal or neural foraminal narrowing. Shallow disc bulge and mild facet arthropathy. Ligamentum flavum thickening. L2-L3 shallow broad-based disc bulge, mild facet arthropathy, ligamentum flavum thickening. Mild central canal stenosis and ventral thecal sac flattening. No significant neural foraminal narrowing. L3-L4: No significant spinal canal or neural foraminal narrowing. Shallow disc bulge and mild facet arthropathy. L4-5: No significant spinal canal neural foraminal narrowing. L5-S1 no significant spinal canal stenosis neural foramina somewhat obscured due to hardware susceptibility artifact without evidence of high-grade stenosis. Impression postsurgical changes from L4-5 instrumental posterior spinal fusion and L4-5 and L5 S for 1 interbody fusion. Overall mild multilevel lumbar spondylosis as described above without high-grade spinal canal or neural foraminal narrowing. X-ray lumbar sacral spine 11/12/2022. Findings: There is reversal of lumbar lordosis with disc ages at L4-5 and L5-S1 disc levels. There is posterior hardware from L4 through L5 vertebra. There is degenerative disc changes and all lumbar disc levels with moderate bridging osteophytes at L1-L2 and L2-L3 disc levels. No aggressive lytic or sclerotic process seen. The paravertebral soft tissues are normal. SI joints are normal. Assessment & Plan Assessment & Plan (1) Postlaminectomy syndrome: Code(s): M96.1 - Postlaminectomy syndrome, not elsewhere classified (2) History of lumbar spinal fusion: Code(s): Z98.1 - Arthrodesis status (3) Lumbar degenerative disc disease: Code(s): M51.36 - Other intervertebral disc degeneration, lumbar region (4) Lumbar spondylosis: Code(s): M47.816 - Spondylosis without myelopathy or radiculopathy, lumbar region (5) Lumbar radiculopathy: Code(s): M54.16 - Radiculopathy, lumbar region (6) Osteoarthritis, hip, bilateral: Code(s): M16.0 - Bilateral primary osteoarthritis of hip (7) Bilateral hip pain: Code(s): M25.551 - Pain in right hip; M25.552 - Pain in left hip (8) Low back pain: Code(s): M54.5 - Low back pain Qualifiers: Back pain laterality: bilateral Chronicity: chronic Sciatica presence: without sciatica Qualified Code(s): M54.50 - Low back pain, unspecified; G89.29 - Other chronic pain Plan 1. Patient with chronic pain syndrome related to arthritis and degenerative changes of her lumbar spine, s/p 5 back surgeries with lumbar fusion. After MRI becomes more clear that she is suffering from postlaminectomy syndrome. No spinal canal stenosis. The vertebras above the fusion are demonstrating Modic 1 type changes which could be another pain generator for her. She reports most significant pain when she is laying in bed. Spinal cord stimulator, intrathecal drug delivery system pain pump could be considered for the patient provided that she can past psychological evaluation. She has a psychologist who will be able to confirm that she is currently stable. She is on Suboxone for opioid use disorder. 2. I will prescribed NSAIDs ibuprofen 400 mg for minor sprain on the right loin side she sustained after falling in her household. 4. She failed hip injection to alleviate pain in the hips. However her concerns now are lower back pain. I 4. This patient is on Suboxone for OUD. We can offer her neuromodulation treatments provided she can pass through psychological evaluation. She was also diagnosed with thrombocytopenia however the range of platelets are between 130 in [id number] per micro L. 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 LAST PLATELET COUT IS [id number]. 5. I will increase her gabapentin to 800 mg t.i.d.. 6. When her MRI will be ready she will schedule appointment with us again. Anticoagulation: Patient not on anticoagulant Justification for interventional therapy: ? Patient with average pain > 6/10 ? Patient has exhausted conservative therapy ? Patient unable to tolerate physical therapy due to pain The risks, consequences, alternatives, and benefits of various treatment options were discussed with the patient in great detail, including conservative management, injections and procedures. I informed her of the hyperglycemic effects of steroids. Medications: New ibuprofen Take medications not p.r.n. but rather on the clock every 6 hours for 10 days and then stop. 400 mg PO Q6H 40 tabs 0RF pain 10 days Coding Level of Care Code Est Pt Level 4 (22606) Diagnoses Postlaminectomy syndrome M96.1 History of lumbar spinal fusion Z98.1 Lumbar degenerative disc disease M51.36 Lumbar spondylosis M47.816 Lumbar radiculopathy M54.16 Osteoarthritis, hip, bilateral M16.0 Bilateral hip pain M25.551; M25.552 Low back pain M54.50; G89.29 Back pain laterality: bilateral Chronicity: chronic Sciatica presence: without sciatica
[2022-12-13 10:20] VITALS: BP 108/58; PULSE 63; RESP 18; O2SAT 97; BMI 26.4
== END 2022-12-13 10:41 | disposition home or self-care (01) ==
PROVIDERS: PCP Internal Medicine; Visit Provider Anesthesiology
DX: M96.1 Postlaminectomy syndrome, not elsewhere classified (principal); Z98.1 Arthrodesis status; M51.36 Other intervertebral disc degeneration, lumbar region; M47.816 Spondylosis without myelopathy or radiculopathy, lumbar region; M54.16 Radiculopathy, lumbar region; M16.0 Bilateral primary osteoarthritis of hip; M25.551 Pain in right hip; M25.552 Pain in left hip; M54.50 Low back pain, unspecified; G89.29 Other chronic pain
CPT/HCPCS: 99214

== ENCOUNTER → 2022-12-13 10:12 | Outpatient (BNVA) | payer MEDICARE, MEDICAID, SELFPAY | PROVIDERS: PCP Internal Medicine; Visit Provider Anesthesiology | DX: M96.1 Postlaminectomy syndrome, not elsewhere classified (principal); M16.0 Bilateral primary osteoarthritis of hip; M51.36 Other intervertebral disc degeneration, lumbar region; M47.816 Spondylosis without myelopathy or radiculopathy, lumbar region; M54.16 Radiculopathy, lumbar region; M25.552 Pain in left hip; M25.551 Pain in right hip; M54.50 Low back pain, unspecified; G89.29 Other chronic pain; Z98.1 Arthrodesis status | CPT/HCPCS: 99212 ==

== ENCOUNTER 2022-12-20 11:11 | Outpatient (AMB) | payer MEDICARE, MEDICAID, SELFPAY ==
--- NOTE | 2022-12-20 11:16 | AM.OFFWIN_ITS ---
Intake Vital Signs 12/20/22 11:18 Weight 151 lb BP 110/70 Blood Pressure Location Lt brachial Position Sitting Pulse 72 Pulse Source Pulse Oximeter Pulse Oximetry (%) 96 Oxygen Delivery Method Room Air Intake Visit Reasons: EST/right rib pain Intake Note: Patient here because she was knocked down by her dog while walking it and now has right rib and shoulder pain. Patient Tobacco Use Status: Current everyday Tobacco user Allergies bupropion [From Wellbutrin] Allergy (Intermediate, Verified 12/20/22 11:18) Itching influenza virus vaccine, specific [FLU VACCINE] Allergy (Unknown, Verified 12/20/22 11:18) RASH latex Allergy (Unknown, Verified 12/20/22 11:18) Rash Sulfa (Sulfonamide Antibiotics) Allergy (Unknown, Verified 12/20/22 11:18) UNKNOWN, itch, itching baclofen Allergy (Verified 12/20/22 11:18) twitching, falling down Do you need a note to return to daycare/school/sports/work: No HPI HPI Comments History of Present Illness Details 62-year-old female who presents for right rib pain. Patient was walking her dog and fell on her right side proximally for 5 days ago. She has dressings in right-sided rib to be reduced back this wounds pain with deep inspiration. [facility] Medical History (Updated 11/22/22 @ 15:29 by Melissa Topete MD) ADHD Bilateral finger arthralgia Bilateral groin pain Bilateral hip pain Cigarette smoker motivated to quit Coccyx pain Community acquired bilateral lower lobe pneumonia COPD (chronic obstructive pulmonary disease) Cough Depression Depressive 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 Diabetes mellitus with diabetic neuropathy, without long-term current use of insulin Dyslipidemia Dysuria Heartburn Hepatomegaly History of pneumonia Injury of left heel Insomnia Left shoulder pain Low back pain Lumbar degenerative disc disease Lumbar spondylosis Mixed incontinence urge and stress Opiate addiction TEA on CPAP Osteoarthritis, hip, bilateral Pain or burning when swallowing Prolapse of female pelvic organs Vitamin B12 deficiency Vitamin D deficiency Surgical History H/O colonoscopy H/O neck surgery H/O tubal ligation History of lumbar fusion History of lumbar spinal fusion History of partial hysterectomy Hx of cholecystectomy Status post sleeve gastrectomy Family History Father Aneurysm Other No family history of cancer Social History Household Members: Children Household Members Other:: daughter Housing: House Are you a primary hospice care transitions coordinator to a significant other at home: No Do you presently have visiting nurse or other home services: No Alcohol intake: never Patient Tobacco Use Status: Current everyday Tobacco user Tobacco use type: Cigarette Cigarettes Per Day: 10 e-Cigarette/Vaping Use: Currently Using Second Hand Smoke Exposure: Yes service: No Current occupational status: unemployed Cognitive needs: Yes (walker) Hearing needs: No Vision needs: Yes (glasses) Review of Systems Const All systems reviewed & are unremarkable except as noted in HPI and below Musc Details: Right rib pain Physical Exam Vital Signs: Last Vital Signs Pulse 72 12/20/22 11:18 BP 110/70 12/20/22 11:18 Pulse Ox 96 12/20/22 11:18 Oxygen Delivery Method Room Air 12/20/22 11:18 Const General: cooperative, no acute distress and alert Extrem Other: TTP anterior axillary line on the right side right ribs 5-7 Assessment & Plan Assessment & Plan (1) Rib pain on right side: Code(s): R07.81 - Pleurodynia Plan VSS. exam notable for point tenderness anterior x-ray lateral right side. We should check x-ray to evaluate for rib fracture if negative will treat symptomatically for rib fracture given low sensitivity of x-rays and inability to access CT scanning. On preliminary read no obvious fracture present. Will still treat symptomatically for rib contusion versus fracture. Discharge instructions, follow up and treatment are discussed with patient in my usual fashion. Alternatives in treatment are also discussed. The patient will return for worsening symptoms or as needed. Advised that any labs/imaging ordered will be followed up on and contact made if further treatment needed. Counseled that patient's condition may require further evaluation and/or treatment. Symptoms of concern for worsening disorder discussed in detail in my customary manner. Patient does verbalize understanding of the plan, there are no apparent barriers to communication. The patient is given the opportunity to ask questions and have them answered to his/her satisfaction Orders: Orders XR chest 2V Today R07.81 - Pleurodynia Medications: New lidocaine 5% leave on most painful area for up to 12 hrs 1 patch topical DAILY 15 ea 0RF meloxicam 7.5 mg PO DAILY 7 tabs 0RF Patient Instructions: The x-rays do not show any obvious fracture. If experiencing new worsening symptoms such as shortness of breath worsening pain or any concerning symptoms I mentioned above Coding Level of Care Code Est Pt Level 3 (02544) Diagnoses Rib pain on right side R07.81
[2022-12-20 11:18] VITALS: BP 110/70; PULSE 72; O2SAT 96
== END 2022-12-20 11:51 | disposition home or self-care (01) ==
PROVIDERS: PCP Internal Medicine; Visit Provider Physician Assistant
DX: R07.81 Pleurodynia (principal)
CPT/HCPCS: 99213

== ENCOUNTER 2022-12-20 11:39 | Outpatient (REF) | payer MEDICARE, MEDICAID, SELFPAY ==
--- NOTE | ~2022-12-20 | XR_ITS ---
EXAMINATION: XR CHEST CLINICAL INFORMATION: Pleurodynia. COMPARISON: 07/28/2021 chest radiograph. TECHNIQUE: 2 views of the chest were obtained. FINDINGS: No significant abnormality is noted involving the heart, lungs, mediastinum, bony thorax or soft tissues. Cervical spine fusion hardware appears intact. XR/XR chest 2V IMPRESSION: No acute cardiopulmonary process.
== END 2022-12-20 11:40 | disposition home or self-care (01) ==
LOC: HO.HMGCX 11:39
PROVIDERS: PCP Internal Medicine; Visit Provider Physician Assistant
DX: R07.81 Pleurodynia (principal)
CPT/HCPCS: 71046

== ENCOUNTER 2023-01-03 15:38 | Emergency (ER) | payer MEDICARE, MEDICAID, SELFPAY ==
[2023-01-03 16:20] VITALS: BP 100/51; PULSE 63; RESP 18; TEMP 36.7; O2SAT 97; BMI 27.5
--- NOTE | 2023-01-03 16:21 | ED.EYEPROB ---
HPI - Eye Problem General Chief complaint: Eye Problems Stated complaint: biliteral eye discharge and swollen Time Seen by Provider: 01/03/23 20:22 Source: patient Mode of arrival: ambulatory Limitations: no limitations History of Present Illness HPI Narrative: Patient been having frequent redness of the both eyes for last 6 months with watering unknown allergen comes here for similar itching and burning sensation for last 1 week no fever no trauma no other rash Related Data Home Medications Medication Instructions Recorded Confirmed buprenorphine 8 mg-naloxone 2 mg 1 strip sublingual BID 09/18/21 10/25/22 sublingual film dextroamphetamine-amphetamine 30 30 mg PO BID@0900,1300 09/18/21 10/25/22 mg tablet risperidone 2 mg tablet (Risperdal) 2 mg PO BEDTIME 09/18/21 10/25/22 trazodone 100 mg tablet 3 tab PO BEDTIME 03/05/22 10/25/22 sertraline 100 mg tablet 100 mg PO QAM 07/31/22 10/25/22 atorvastatin 20 mg tablet 20 mg PO DAILY 08/13/22 10/25/22 divalproex 500 mg tablet,extended 1,500 mg PO QPM 08/13/22 10/25/22 release 24 hr nystatin 100,000 unit/mL oral 1 ml PO QID 08/13/22 10/25/22 suspension Previous Rx's Medication Instructions Recorded clotrimazole 1 % topical cream 1 appl topical BID #90 grams 06/25/22 famotidine 40 mg tablet 40 mg PO BEDTIME #90 tabs 08/13/22 diclofenac sodium 1 % topical gel 2 g topical QID PRN pain and 08/28/22 stiffness in fingers #100 grams albuterol sulfate 2.5 mg/3 mL 2.5 mg (3 mL) inhalation Q6H PRN 08/30/22 (0.083 %) solution for nebulization shortness of breath or wheezing #90 mL pantoprazole 40 mg tablet,delayed 40 mg PO DAILY #90 tabs 10/08/22 release albuterol sulfate 90 mcg/actuation 2 puff PO QID PRN wheezing #8.5 10/25/22 aerosol inhaler (Ventolin HFA) grams gabapentin 800 mg tablet 800 mg PO TID 30 days #90 tabs 11/01/22 nitrofurantoin 100 mg PO Q12H 10 days #20 caps 08/10/23 monohydrate/macrocrystals 100 mg capsule tamsulosin 0.4 mg capsule (Flomax) 0.4 mg PO DAILY #90 caps 12/03/22 ibuprofen 400 mg tablet 400 mg PO Q6H pain 10 days #40 tabs 12/13/22 lidocaine 5 % topical patch 1 patch topical DAILY #15 ea 12/20/22 meloxicam 7.5 mg tablet 7.5 mg PO DAILY #7 tabs 12/20/22 linaclotide 290 mcg capsule 290 mcg PO QAM #30 caps 12/21/22 (Linzess) diphenhydramine HCl 25 mg capsule 50 mg (2 x 25 mg) PO TID PRN 01/03/23 (Benadryl) allergic reaction #30 caps olopatadine 0.1 % eye drops 1 drp ophthalmic (eye) BID #5 mL 01/03/23 (Pataday Twice Daily Relief) Allergies Allergy/AdvReac Type Severity Reaction Status Date / Time bupropion [From Wellbutrin] Allergy Intermediate Itching Verified 12/20/22 11:18 influenza virus vaccine, Allergy Unknown RASH Verified 12/20/22 11:18 specific [FLU VACCINE] latex Allergy Unknown Rash Verified 12/20/22 11:18 Sulfa (Sulfonamide Allergy Unknown UNKNOWN, Verified 12/20/22 11:18 Antibiotics) itch, itching baclofen Allergy twitching, Verified 12/20/22 11:18 falling down PMFSH Past Medical History Medical History Prolapse of female pelvic organs Bilateral finger arthralgia Coccyx pain Diabetes mellitus with diabetic neuropathy, without long-term current use of insulin Pain or burning when swallowing Heartburn Hepatomegaly Osteoarthritis, hip, bilateral Bilateral hip pain Lumbar spondylosis Bilateral groin pain Depressive 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 History of pneumonia Vitamin B12 deficiency Vitamin D deficiency Insomnia ADHD Community acquired bilateral lower lobe pneumonia Injury of left heel Cough Cigarette smoker motivated to quit Dysuria Left shoulder pain Dyslipidemia Low back pain Lumbar degenerative disc disease Mixed incontinence urge and stress TEA on CPAP Opiate addiction Depression COPD (chronic obstructive pulmonary disease) Surgical History H/O neck surgery Status post sleeve gastrectomy History of lumbar spinal fusion H/O colonoscopy Hx of cholecystectomy History of partial hysterectomy H/O tubal ligation History of lumbar fusion Family History Family History Father Aneurysm Other No family history of cancer Social History Social History Household Members: Children Household Members Other:: daughter Housing: House Are you a primary reproductive healthcare assistant to a significant other at home: No Do you presently have visiting nurse or other home services: No Alcohol intake: never Patient Tobacco Use Status: Current everyday Tobacco user Tobacco use type: Cigarette Cigarettes Per Day: 10 e-Cigarette/Vaping Use: Currently Using Second Hand Smoke Exposure: Yes Advance Directives: No Advance Directives Information Provided: No service: No Current occupational status: unemployed Cognitive needs: Yes (walker) Hearing needs: No Vision needs: Yes (glasses) Physical Exam Vital Signs: Vital Signs: Last Vital Signs Temp 98.0 F 01/03/23 16:20 Pulse 63 01/03/23 16:20 Resp 18 01/03/23 16:20 BP 100/51 L 01/03/23 16:20 Pulse Ox 97 01/03/23 16:20 O2 Del Method Room Air 01/03/23 16:20 BMI result Body Mass Index 27.5 Eyes: Visual Pandey: normal visual pandey by confrontation Alignment and Position: alignment normal Periorbital: periorbital findings abnormal (Swelling of infraorbital area bilateral) Eyelids: Yes eyelids normal Conjunctivae: conjunctival abnormal (Inflamed conjunctiva) bilateral Sclerae: scleral abnormal (Inflamed) bilateral Corneas: corneas normal Pupils: Equal, round and reactive pupils present EOM: EOMs intact bilaterally and EOM abnormal Direct Ophthalmoscopy: no photophobia and anterior chamber normal Neuro: Cranial nerves: Yes Equal, round and reactive pupils present Course Course Course Narrative: This is an RME: Additional HPI, ROS, PE not included below will be deferred to primary provider. This is a [id number]-female, with a hx of ADHD, COPD, dysplipidemia, hepatomegaly, lumbar spondylosis, TEA, presenting to the emergency department with complaints of left eye burning and drainage x 1 week, worsening today. Pt states that 6 months ago she used an eye patch that she had an allergic reaction to and her eye was swollen shut. She states that her symptoms improved, but has had continued problems with her eye which includes intermittent lower eye swelling and drainage. She states that starting one week ago, she has had a burning sensation in her left eye with blurred vision. Endorsing photophobia. She does not wear contact lenses. She called her eye physician who is unable to see her until March. Plan: Further ER evaluation needed, [facility], eye exam Medical Decision Making Medical Decision Making MDM Narrative: Patient with bilateral allergic conjunctivitis discharge on Pataday eyedrops and Benadryl Discharge Plan Discharge Clinical Impression: Allergic conjunctivitis Patient Disposition: Home, Self-Care Instructions: Allergies (ED), Conjunctivitis (ED) Additional Instructions: Use eyedrops as prescribed Take Benadryl as advised Prescriptions: New olopatadine [Pataday Twice Daily Relief] 0.1 % drops 1 drp ophthalmic (eye) BID Qty: 5 0RF Rx Instructions: separate doses by at least 6-8 hours diphenhydramine HCl [Benadryl] 25 mg capsule 50 mg PO TID PRN (Reason: allergic reaction) Qty: 30 0RF No Action clotrimazole 1 % cream 1 appl topical BID Qty: 90 3RF diclofenac sodium 1 % gel 2 g topical QID PRN (Reason: pain and stiffness in fingers) Qty: 100 0RF pantoprazole 40 mg tablet,delayed release (DR/EC) 40 mg PO DAILY Qty: 90 3RF Rx Instructions: take one tablet half an hour before breakfast albuterol sulfate [Ventolin HFA] 90 mcg/actuation HFA aerosol inhaler 2 puff PO QID PRN (Reason: wheezing) Qty: 8.5 3RF nitrofurantoin monohyd/m-cryst 100 mg capsule 100 mg PO Q12H 10 Days Qty: 20 0RF Rx Instructions: must administer with a meal/food tamsulosin [Flomax] 0.4 mg capsule 0.4 mg PO DAILY Qty: 90 0RF Linzess 290 mcg capsule 290 mcg PO QAM Qty: 30 4RF dextroamphetamine-amphetamine 30 mg tablet 30 mg PO BID@0900,1300 risperidone [Risperdal] 2 mg tablet 2 mg PO BEDTIME buprenorphine-naloxone 8-2 mg film 1 strip sublingual BID trazodone 100 mg tablet 3 tab PO BEDTIME albuterol sulfate 2.5 mg /3 mL (0.083 %) solution for nebulization 2.5 mg inhalation Q6H PRN (Reason: shortness of breath or wheezing) Qty: 90 1RF sertraline 100 mg tablet 100 mg PO QAM lidocaine 5 % adhesive patch,medicated 1 patch topical DAILY Qty: 15 0RF Rx Instructions: leave on most painful area for up to 12 hrs meloxicam 7.5 mg tablet 7.5 mg PO DAILY Qty: 7 0RF gabapentin 800 mg tablet 800 mg PO TID 30 Days Qty: 90 6RF ibuprofen 400 mg tablet 400 mg PO Q6H 10 Days Qty: 40 0RF Rx Instructions: Take medications not p.r.n. but rather on the clock every 6 hours for 10 days and then stop. atorvastatin 20 mg tablet 20 mg PO DAILY nystatin 100,000 unit/mL suspension 1 ml PO QID Rx Instructions: swish and swallow divalproex 500 mg tablet extended release 24 hr 1,500 mg PO QPM famotidine 40 mg tablet 40 mg PO BEDTIME Qty: 90 3RF
[2023-01-03 20:49] VITALS: BP 142/60; PULSE 60; RESP 16; O2SAT 96
[2023-01-03] MEDS: dexAMETHasone 2 MG TABLET 10 MG PO (20:55)
== END 2023-01-03 20:59 | disposition home or self-care (01) ==
PROVIDERS: Emergency Provider Internal Medicine; PCP Internal Medicine
DX: H10.13 Acute atopic conjunctivitis, bilateral (principal); E11.9 Type 2 diabetes mellitus without complications; E78.5 Hyperlipidemia, unspecified; F11.20 Opioid dependence, uncomplicated; F17.210 Nicotine dependence, cigarettes, uncomplicated; Z98.84 Bariatric surgery status; Z90.49 Acquired absence of other specified parts of digestive tract; Z90.711 Acquired absence of uterus with remaining cervical stump
CPT/HCPCS: 99282; 99283; J8540

== ENCOUNTER 2023-01-21 15:49 | Outpatient (AMB) | payer MEDICARE, MEDICAID, SELFPAY ==
--- NOTE | 2023-01-21 15:49 | A.OFFVIS_ITS ---
Intake Intake Visit Reasons: ITDD TRIAL/IMPLANT PROC. QUEST./Confirmed Allergies bupropion [From Wellbutrin] Allergy (Intermediate, Verified 01/21/23 15:49) Itching influenza virus vaccine, specific [FLU VACCINE] Allergy (Unknown, Verified 01/21/23 15:49) RASH latex Allergy (Unknown, Verified 01/21/23 15:49) Rash Sulfa (Sulfonamide Antibiotics) Allergy (Unknown, Verified 01/21/23 15:49) UNKNOWN, itch, itching baclofen Allergy (Verified 01/21/23 15:49) twitching, falling down HPI HPI Comments History of Present Illness Details Justa is in the office for the follow-up and discussion. She was referred to me to perform intra-articular hip injection. She received intra- articular hip injection? on 10/12/2021 for intra-articular hip injection steroids. She reported no pain relief from the procedure. She is 62 years old and could be a good candidate for total hip replacement. I discussed in 2021 with her possibility of referring her to an orthopedic surgeon for evaluation and indications for total hip replacement. The patient came today however to discuss her lower back pain with me. She is suffering from postlaminectomy syndrome. She has pain in the lower back with minimal radiation bilaterally. She reports that she had 4 surgeries on her lumbar spine on her x-ray of the lumbar spine there is intradiscal hardware at L5-S1 interspace as well as L4-5 interspace and there is also transpedicular screws and rods fusing L4-5 vertebra as. I send her to MRI of the lumbar spine results of which dictated as below. She has multiple changes in the MRI specially above the level of her fusion. She has reversal of spinal lordosis. She has kissing osteophytes of the L1 through L3 and into L4 lumbar vertebra as. Those are most seen on the x-ray which was done for her as well. She has Modic type 1 changes in upper lumbar vertebra as. She has minimal facet arthritis. She has some ligamentum flavum thickening. There is no spinal canal or foraminal stenosis on any levels. Therefore I think that this patient is suffering from postlaminectomy syndrome. I would like to consider neuromodulation for her including pain pump and spinal cord stimulator. I will send her for psychological evaluation 1st. Also there is significant Modic changes which could be addressed with intracept procedure. All this options were given to the patient. The patient after consideration decided that she wants to go for the pain pump. She adamantly refused to try spinal cord stimulator. She said that she had spinal cord stimulator in the past and it did not work for her. I offered her also intrasept procedure but she adamantly refused to go for intracept as well. I will schedule her for trial with bupivacaine because she is on Suboxone for OUD. Risks and benefits of the procedure were explained today to the patient. The patient will be scheduled for trial. Prior: ?chronic pain in her back, lower legs, bilateral hips and groins.? Getting worse for the past 6 months .? Denies trauma, injury, or falls.? significant bilateral hips pain that is worsening with movements, prolonged standing, unable to bend d own and stiffness. Patient states she had 5 back surgeries in the past, last being a lumbar fusion. She had completed physical therapy years ago without improvement in her symptoms. Currently, she is unable to participate in PT due to severe pain. . CT lumbar spine was consistent with post L4-L5 posterior spinal fusion with interbody disc spacers across L4-L5 and L5-S1 without evidence of hardware fracture or complication. Venous US 07/28/21 was negative for DVT in both lower extremities. ?She has tried gabapentin, Tylenol, ibuprofen, naproxen, meloxicam and topical creams with mild relief. Reports gabapentin has been helpful. She is currently on Suboxone for?history of OUD.?? Patient has been seen in [facility] and [facility] for knee injections in the past. [facility] Medical History Prolapse of female pelvic organs Bilateral finger arthralgia Coccyx pain Diabetes mellitus with diabetic neuropathy, without long-term current use of insulin Pain or burning when swallowing Heartburn Hepatomegaly Osteoarthritis, hip, bilateral Bilateral hip pain Lumbar spondylosis Bilateral groin pain Depressive 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 History of pneumonia Vitamin B12 deficiency Vitamin D deficiency Insomnia ADHD Community acquired bilateral lower lobe pneumonia Injury of left heel Cough Cigarette smoker motivated to quit Dysuria Left shoulder pain Dyslipidemia Low back pain Lumbar degenerative disc disease Mixed incontinence urge and stress TEA on CPAP Opiate addiction Depression COPD (chronic obstructive pulmonary disease) Surgical History H/O neck surgery Status post sleeve gastrectomy History of lumbar spinal fusion H/O colonoscopy Hx of cholecystectomy History of partial hysterectomy H/O tubal ligation History of lumbar fusion Family History Father Aneurysm Other No family history of cancer Social History Household Members: Children Household Members Other:: daughter Housing: House Are you a primary home care and home health aides teacher to a significant other at home: No Do you presently have visiting nurse or other home services: No Alcohol intake: never Patient Tobacco Use Status: Current everyday Tobacco user Tobacco use type: Cigarette Cigarettes Per Day: 10 e-Cigarette/Vaping Use: Currently Using Second Hand Smoke Exposure: Yes service: No Current occupational status: unemployed Cognitive needs: Yes (walker) Hearing needs: No Vision needs: Yes (glasses) Review of Systems Const All systems reviewed & are unremarkable except as noted in HPI and below Results Reviewed Results Reviewed: MRI lumbar spine without contrast 11/19/2022 Interpretation the conus is identified at T12-L1 level with normal signal and no evidence of a mass. There is straightening of the usual lumbar lordosis. There are normal vertebral body heights. No bone marrow edema is seen given the metallic artifact. T10-T11 no disc is herniation is seen. T11-T12 minimal disc bulge T12-L1 no disc herniation. L1-L2 no disc herniation. L2-L3 loss of disc space height with very prominent anterior endplate Modic type discogenic reactive changes. There are mild broad-based disc protrusions which mildly indents on the thecal sac. The neural foramina is patent. At L3-L4 level there is a mild broad-based disc bulge with minimally indents the thecal sacs neural foramina patent. Prominent Modic type 1 endplate discogenic reactive changes. L4-L5 there are status post discectomy and fusion changes within intervertebral disc spacers and bilateral pedicle screws in the L4 and L5 vertebral bodies. No canal or foraminal narrowing is seen given the metallic artifact. Prominent Modic type 1 endplate discogenic reactive changes. L5-S1 there status post cystectomy infusion changes within the intervertebral disc spacer. No canal or foraminal narrowing is seen given the metallic artifact. There is no evidence of any a symmetric atrophy or muscle edema involving visualized paraspinal or iliopsoas muscle. A tiny T2 bright rounded focus associated with right kidney statistically may be represented renal cyst. Addendum A colon findings: Postsurgical changes from instrumental posterior spinal fusion spanning L4-5 with interbody spacer in place. There is also interbody device at L5-S1. Slig ht reversal of usual lumbar lordosis. No significant spondylolisthesis. No suspicious marrow spinal of focal osseous lesions. Endplate marrow edema at L2- L3. There is also some mild edema involving anterior aspect of L1 vertebral body. Vertebral body heights are maintained. The intervertebral discs are normal height and signal. The conus medullaris terminates the level of L1. The distal spinal cord is normal in appearance. The cauda equina nerve roots appears normal. There is some fatty atrophy as well as mild edema involving the medial aspect of psoas muscles. Likely reflecting sequela of denervation. Limited evaluation of intra-abdominal structures without significant abnormalities. The abdominal aorta is normal contour in caliber. Spinal levels: T12-L1 mild facet arthropathy no significant spinal canal or neural foraminal narrowing. L1-L2 no significant spinal canal or neural foraminal narrowing. Shallow disc bulge and mild facet arthropathy. Ligamentum flavum thickening. L2-L3 shallow broad-based disc bulge, mild facet arthropathy, ligamentum flavum thickening. Mild central canal stenosis and ventral thecal sac flattening. No significant neural foraminal narrowing. L3-L4: No significant spinal canal or neural foraminal narrowing. Shallow disc bulge and mild facet arthropathy. L4-5: No significant spinal canal neural foraminal narrowing. L5-S1 no significant spinal canal stenosis neural foramina somewhat obscured due to hardware susceptibility artifact without evidence of high-grade stenosis. Impression postsurgical changes from L4-5 instrumental posterior spinal fusion and L4-5 and L5 S for 1 interbody fusion. Overall mild multilevel lumbar spondylosis as described above without high-grade spinal canal or neural foraminal narrowing. X-ray lumbar sacral spine 11/12/2022. Findings: There is reversal of lumbar lordosis with disc ages at L4-5 and L5-S1 disc levels. There is posterior hardware from L4 through L5 vertebra. There is degenerative disc changes and all lumbar disc levels with moderate bridging osteophytes at L1-L2 and L2-L3 disc levels. No aggressive lytic or sclerotic process seen. The paravertebral soft tissues are normal. SI joints are normal. Assessment & Plan Assessment & Plan (1) Postlaminectomy syndrome: Code(s): M96.1 - Postlaminectomy syndrome, not elsewhere classified (2) History of lumbar spinal fusion: Code(s): Z98.1 - Arthrodesis status (3) Lumbar degenerative disc disease: Code(s): M51.36 - Other intervertebral disc degeneration, lumbar region (4) Lumbar spondylosis: Code(s): M47.816 - Spondylosis without myelopathy or radiculopathy, lumbar region (5) Lumbar radiculopathy: Code(s): M54.16 - Radiculopathy, lumbar region (6) Osteoarthritis, hip, bilateral: Code(s): M16.0 - Bilateral primary osteoarthritis of hip (7) Bilateral hip pain: Code(s): M25.551 - Pain in right hip; M25.552 - Pain in left hip (8) Low back pain: Code(s): M54.5 - Low back pain Qualifiers: Back pain laterality: bilateral Chronicity: chronic Sciatica presence: without sciatica Qualified Code(s): M54.50 - Low back pain, unspecified; G89.29 - Other chronic pain (9) Chronic pain syndrome: Code(s): G89.4 - Chronic pain syndrome (10) Thrombocytopenia: Code(s): D69.6 - Thrombocytopenia, unspecified Plan 1. Patient with chronic pain syndrome related to arthritis and degenerative changes of her lumbar spine, s/p 5 back surgeries with lumbar fusion. After MRI becomes more clear that she is suffering from postlaminectomy syndrome. No spinal canal stenosis. The vertebras above the fusion are demonstrating Modic 1 type changes which could be another pain generator for her. She reports most significant pain when she is laying in bed. Spinal cord stimulator, intrathecal drug delivery system pain pump are considered. the patient the patient chose to go for pain pump trial. She is on Suboxone for opioid use disorder. She was diagnosed with thrombocytopenia but her platelets last time were 137,000. Nevertheless I need her to submit platelets 2 days before the trial. Because she is on Suboxone the 1st trial will be with bupivacaine. Trial with clonidine and baclofen could be considered. If she wants to go for opioid trial she needs to stop her medications Suboxone for 1 week before the trial and 4 months before the implant. Anticoagulation: Patient not on anticoagulant Justification for interventional therapy: ? Patient with average pain > 6/10 ? Patient has exhausted conservative therapy ? Patient unable to tolerate physical therapy due to pain The risks, consequences, alternatives, and benefits of various treatment options were discussed with the patient in great detail, including conservative management, injections and procedures. I informed her of the hyperglycemic effects of steroids. Orders: Orders Complete Blood Count Man Dif Today D69.6 - Thrombocytopenia, unspecified Patient Instructions: I here by testify that I spent 30 minutes in conversation with this patient as well as planning her care and organizing this note. Telehealth Telehealth Location of provider rendering services: practice address Location of patient: address on file Patient Identification confirmed using: Name, : Yes Telehealth method: voice only Patient verbally consented to treatment: Yes Patient verbally consented to billing insurance company: Yes Patient informed of any privacy concerns related to visit: Yes Coding Level of Care Code Tele Est Pt Level 4 (67356) Diagnoses Postlaminectomy syndrome M96.1 History of lumbar spinal fusion Z98.1 Lumbar degenerative disc disease M51.36 Lumbar spondylosis M47.816 Lumbar radiculopathy M54.16 Osteoarthritis, hip, bilateral M16.0 Bilateral hip pain M25.551; M25.552 Low back pain M54.50; G89.29 Back pain laterality: bilateral Chronicity: chronic Sciatica presence: without sciatica Chronic pain syndrome G89.4 Thrombocytopenia D69.6
== END 2023-01-21 16:18 | disposition home or self-care (01) ==
LOC: HO.PMC 15:49
PROVIDERS: PCP Internal Medicine; Visit Provider Anesthesiology
DX: M96.1 Postlaminectomy syndrome, not elsewhere classified (principal); Z98.1 Arthrodesis status; M51.36 Other intervertebral disc degeneration, lumbar region; M16.0 Bilateral primary osteoarthritis of hip; M47.816 Spondylosis without myelopathy or radiculopathy, lumbar region; M54.16 Radiculopathy, lumbar region; M25.551 Pain in right hip; M25.552 Pain in left hip
CPT/HCPCS: 99443

== ENCOUNTER → 2023-01-21 15:49 | Outpatient (BNVA) | payer MEDICARE, MEDICAID, SELFPAY | PROVIDERS: PCP Internal Medicine; Visit Provider Anesthesiology ==

== ENCOUNTER 2023-01-23 12:09 | Outpatient (AMB) | payer MEDICARE, MEDICAID, SELFPAY ==
--- NOTE | 2023-01-23 12:53 | MHC.PC.OV ---
Vital Signs 01/23/23 12:54 Height 5 ft 4 in Weight 157 lb BMI 26.9 BP 100/70 Blood Pressure Location Lt brachial Position Sitting Pulse 71 Pulse Source Pulse Oximeter Pulse Oximetry (%) 94 Oxygen Delivery Method Room Air Intake Visit Reasons: Hair Loss Intake Note: Pt is here today for he hair loss Allergies bupropion [From Wellbutrin] Allergy (Intermediate, Verified 10/11/23 11:28) Itching influenza virus vaccine, specific [FLU VACCINE] Allergy (Unknown, Verified 10/11/23 11:28) RASH latex Allergy (Unknown, Verified 10/11/23 11:28) Rash Sulfa (Sulfonamide Antibiotics) Allergy (Unknown, Verified 10/11/23 11:28) UNKNOWN, itch, itching baclofen Allergy (Verified 10/11/23 11:28) twitching, falling down Medication List - Last Reconciled 10/12/23 by Melissa Topete MD acetaminophen ER (Tylenol Arthritis Pain) 650 mg PO Q8H PRN albuterol sulfate 2.5 mg (3 mL) inhalation Q6H PRN albuterol sulfate 90 mcg/actuation (Ventolin HFA) 2 puffs PO QID PRN amoxicillin 500 mg PO Q8H budesonide-formoterol 160-4.5 mcg/actuation (Symbicort) 2 puffs inhalation Q12H buprenorphine-naloxone 8-2 mg 1 strip sublingual BID clotrimazole 1% 1 appl topical BID dextroamphetamine-amphetamine 10 mg 1 tab PO DAILY dextroamphetamine-amphetamine 30 mg 30 mg PO BID@0900,1300 diclofenac sodium 1% 2 grams topical QID PRN divalproex ER 1,500 mg PO QPM doxepin 50 mg PO BEDTIME Dulera 200-5 mcg/actuation (mometasone-formoterol) 2 puffs inhalation Q12H NS gabapentin 800 mg PO TID 30 days linaclotide (Linzess) 290 mcg PO QAM pantoprazole 40 mg PO DAILY risperidone (Risperdal) 2 mg PO BEDTIME rosuvastatin 5 mg PO DAILY sertraline 100 mg PO QAM trazodone 3 tabs PO BEDTIME Veozah (fezolinetant) 45 mg PO DAILY NS Tobacco use date assessed: 01/23/23 Dental Screening Dental Screen Date: 01/23/23 Did you have a dental visit in the last 12 months?: Yes Did you have a dental problem in the last 6 months where you did not have access to dental care?: Yes Was dental information given to patient?: Patient has dentist HPI Hair Loss HPI Details 63-year-old lady here today complaining of noticeable hair loss. Currently on on her frontal scalp. Reviewed recent labs which does not show any evidence of anemia, no evidence of infection, normal renal function, electrolytes, fasting glucose, but cholesterol levels are elevated. Patient states that she does have a lot of stress in her family life, however this is nothing new. [facility]LY [facility] Medical History (Updated 10/11/23 @ 11:35 by Melissa Topete MD) Vasomotor symptoms due to menopause Impaired fasting glucose Smoker unmotivated to quit Cough present for greater than 3 weeks Hair thinning Prolapse of female pelvic organs Bilateral finger arthralgia Coccyx pain Diabetes mellitus with diabetic neuropathy, without long-term current use of insulin Pain or burning when swallowing Heartburn Hepatomegaly Osteoarthritis, hip, bilateral Bilateral hip pain Lumbar spondylosis Bilateral groin pain Depressive 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 History of pneumonia Vitamin B12 deficiency Vitamin D deficiency Insomnia ADHD Community acquired bilateral lower lobe pneumonia Injury of left heel Cough Cigarette smoker motivated to quit Dysuria Left shoulder pain Dyslipidemia Low back pain Lumbar degenerative disc disease Mixed incontinence urge and stress TEA on CPAP Opiate addiction Depression COPD (chronic obstructive pulmonary disease) Surgical History (Updated 10/11/23 @ 11:35 by Melissa Topete MD) H/O neck surgery Status post sleeve gastrectomy History of lumbar spinal fusion H/O colonoscopy Hx of cholecystectomy History of partial hysterectomy H/O tubal ligation History of lumbar fusion Family History Father Aneurysm Other No family history of cancer Social History Household Members: Children Household Members Other:: daughter Housing: House Are you a primary transitional care nurse to a significant other at home: No Do you presently have visiting nurse or other home services: No Alcohol intake: never Comment: NOT INDICATED Patient Tobacco Use Status: Current everyday Tobacco user Tobacco use type: Cigarette Cigarettes Per Day: 10 e-Cigarette/Vaping Use: Currently Using Second Hand Smoke Exposure: Yes service: No Current occupational status: unemployed Cognitive needs: Yes (walker) Hearing needs: No Vision needs: Yes (glasses) Questionnaire Thrive Questionnaire Date Thrive assessed: 05/07/22 AMANDA-7 AMB Questionnaire AMANDA-7 Date AMANDA - 7 assessed: 05/07/22 Source: Developed by Drs. Mark Cota, Alva Ghotra, Adis Kramer and colleagues, with an educational adeel from [employer]. Review of Systems Const Denies body aches, Reports difficulty sleeping, Reports excessive sweating, Denies headache(s) and Reports lethargy ENT Denies dysphagia, Denies dizziness, Denies headache(s), Denies neck pain and Denies sinus pain Card Denies chest pain, Denies irregular heart rhythm, Denies lightheadedness and Denies dyspnea Resp Denies chest congestion and Denies dyspnea GI Denies abdominal pain and Denies dysphagia Reports no additional complaints Musc Denies muscle cramps, Denies muscle weakness and Denies neck pain Skin/Breast Denies breast swelling, Denies breast pain, Denies breast mass, Reports dry skin, Denies pruritus, Denies lesions and Denies rash Neuro Denies dizziness and Denies headache(s) Endo Reports excessive sweating Aaron/Lymph Denies easy bleeding and Denies easy bruising Aller/Immun Reports seasonal rhinorrhea Physical exam (Primary Care) Vital Signs: Last Vital Signs Pulse 71 01/23/23 12:54 BP 100/70 01/23/23 12:54 Pulse Ox 94 01/23/23 12:54 Oxygen Delivery Method Room Air 01/23/23 12:54 BMI result Body Mass Index 26.9 Tobacco/Smoking Status: Tobacco use Status Tobacco use date assessed 01/23/23 01/23/23 12:58 Patient Tobacco Use Status Current everyday Tobacco 01/23/23 12:58 Tobacco use type Cigarette 01/23/23 12:58 e-Cigarette/Vaping Use Currently Using 01/23/23 12:58 Thrive Assessment: Date of Thrive Assessment Date Thrive assessed 05/07/22 01/23/23 12:58 Const Other: Mild thinning on frontal part of his scalp. No patchy alopecia seen Orientation/consciousness: patient oriented x3 HENMT Mouth: Normal oral and palatal mucosa present and moist mucous membranes Eyes General: appearance normal, both eyes and all related structures Neck Other: Nonpalpable thyroid gland Neck: Yes full ROM, Yes no lymphadenopathy and Yes supple Resp Effort & Inspection: normal respiratory effort and able to speak in complete sentences Auscultation: clear to auscultation bilaterally Cardio Other: S1-S2 present regular rate and rhythm GI Other: Normal bowel sounds soft, nontender with no mass palpated Skin General skin exam: no rashes or lesions noted Neuro General: patient oriented x3, moves all extremities and no focal motor deficits Assessment and Plan Assessment & Plan (1) Hair thinning: Code(s): L65.9 - Nonscarring hair loss, unspecified Plan: Advised to avoid who using shampoos with a lot of chemicals in it, advised to try switching to Jose's baby shampoo instead, avoid hair dyes with harsh chemicals, avoid pulling hair back into a tight ponytail. If symptoms progress will refer to dermatology for further evaluation. Explained to patient that this is all possibly due to hormonal changes now that she is undergoing menopause Coding Level of Care Code Est Pt Level 3 (37841) Diagnoses Hair thinning L65.9
[2023-01-23 12:54] VITALS: BP 100/70; PULSE 71; O2SAT 94; BMI 26.9
== END 2023-01-23 14:59 | disposition home or self-care (01) ==
PROVIDERS: PCP Internal Medicine; Visit Provider Internal Medicine
DX: L65.9 Nonscarring hair loss, unspecified (principal)
CPT/HCPCS: 99213

== ENCOUNTER 2023-02-02 10:19 | Outpatient (REF) | payer MEDICARE, MEDICAID, SELFPAY ==
[2023-02-02 11:12] LABS: Baso%MD 0.3 %; Eos%MD 0.3 %; Hemoglobin 13.4 g/dl (12.0-16.0); IG%MD 0.3 %; Lymph%MD 39.8 %; Mean Corpuscular HGB Conc 31.9 g/dl (31.0-35.0); Mean Corpuscular Hemoglobin 30.4 pg (27.0-33.0); Mean Corpuscular Volume 95.2 fL (80.0-98.0); Mean Platelet Volume 10.3 fL (9.4-12.3); Mono%MD 7.6 %; Neut%MD 51.7 %; Platelet Count 142 X10*3/uL (160-400); Red Blood Count 4.41 X10*6/uL (4.20-5.50); Red Cell Distribution Width 13.4 % (11.0-16.0); White Blood Count 6.3 X10*3/uL (4.8-10.8)
[2023-02-02 13:33] LABS: Lymphocytes Absolute Manual 2.9 X10*3/uL (1.2-4.9); Lymphocytes Percent Manual 46 % (20-40); Monocytes Absolute Manual 0.1 X10*3/uL (0.1-1.2); Monocytes Percent Manual 2 % (2-11); Neutrophils Percent Manual 52 % (45-73)
[2023-02-02 13:34] LABS: Band Neutrophils Percent 0 % (3-5); Neutrophils Absolute Manual 3.3 X10*3/uL (2.0-8.3)
[2023-02-02 13:35] LABS: Platelet Estimate SLIGHTLY DECREASED (NORMAL); Platelet Morphology Comment NORMAL; RBC Morphology NORMAL
== END 2023-02-02 10:20 | disposition home or self-care (01) ==
LOC: HO.LAB 10:19
PROVIDERS: PCP Internal Medicine; Visit Provider Anesthesiology
DX: D69.6 Thrombocytopenia, unspecified (principal)
CPT/HCPCS: 36415; 85007; 85027

== ENCOUNTER 2023-02-05 07:25 | Outpatient (REF) | payer MEDICARE, MEDICAID, SELFPAY ==
--- NOTE | ~2023-02-05 | FL_ITS ---
EXAMINATION: XR FLUOROSCOPY WITH IMAGES CLINICAL INFORMATION: Chronic pain syndrome. COMPARISON: None available. TECHNIQUE: Fluoroscopy Supervised By: Dr. Ludin De. Fluoroscopy Time: 0.2. Cumulative Dose: 4.11 mGy. DAP: 0.0714 Gycm2. Images: 2. FINDINGS: Image demonstrates needle projecting over the spinal canal at the L2-L3 interlaminar level FL/FL guidance in treatment room IMPRESSION: Fluoroscopy guidance for lumbar puncture
== END 2023-02-05 07:26 | disposition home or self-care (01) ==
LOC: CF 07:25
PROVIDERS: Visit Provider Anesthesiology
DX: M96.1 Postlaminectomy syndrome, not elsewhere classified (principal); M51.36 Other intervertebral disc degeneration, lumbar region; M47.816 Spondylosis without myelopathy or radiculopathy, lumbar region; M54.16 Radiculopathy, lumbar region; G89.4 Chronic pain syndrome
CPT/HCPCS: 62323

== ENCOUNTER 2023-02-05 10:57 | Outpatient (AMB) | payer OTHER, MEDICARE, MEDICAID, SELFPAY ==
[2023-02-05 11:01] VITALS: BP 110/68; BP 98/80; PULSE 66; PULSE 71; RESP 16; O2SAT 95; O2SAT 97; BMI 26.9
--- NOTE | 2023-02-05 11:01 | A.OFFVIS_ITS ---
Intake Vital Signs 02/05/23 11:01 02/05/23 11:01 02/05/23 12:58 Height 5 ft 4 in 5 ft 4 in 5 ft 4 in Weight 157 lb 157 lb 157 lb BMI 26.9 26.9 26.9 BP 98/80 110/68 114/68 Blood Pressure Location Lt brachial Rt brachial Rt brachial Position Sitting Supine Sitting Respiration 16 16 16 Pulse 71 66 71 Pulse Source Pulse Oximeter Pulse Oximeter Pulse Oximeter Pulse Oximetry (%) 97 95 97 Oxygen Delivery Method Room Air Room Air Room Air Comment pre-op post-op @12:29 pm Intake Visit Reasons: ITDD TRIAL W/BUPI/LOCAL Allergies bupropion [From Wellbutrin] Allergy (Intermediate, Verified 02/05/23 12:14) Itching influenza virus vaccine, specific [FLU VACCINE] Allergy (Unknown, Verified 02/05/23 12:14) RASH latex Allergy (Unknown, Verified 02/05/23 12:14) Rash Sulfa (Sulfonamide Antibiotics) Allergy (Unknown, Verified 02/05/23 12:14) UNKNOWN, itch, itching baclofen Allergy (Verified 02/05/23 12:14) twitching, falling down HPI HPI Comments History of Present Illness Details Justa is in the injection center for the trial of ITDD . She came today with c/o pain in the left thigh which she thinks is a new pain for her. She was referred to me to perform intra-articular hip injection. She received intra- articular hip injection? on 10/12/2021 for intra-articular hip injection steroids. She reported no pain relief from the procedure. She is 62 years old and could be a good candidate for total hip replacement. I discussed in 2021 with her possibility of referring her to an orthopedic surgeon for evaluation and indications for total hip replacement. She is suffering from postlaminectomy syndrome. She has pain in the lower back with minimal radiation bilaterally. She reports that she had 4 surgeries on her lumbar spine on her x-ray of the lumbar spine there is intradiscal hardware at L5-S1 interspace as well as L4-5 interspace and there is also transpedicular screws and rods fusing L4-5 vertebra as. I send her to MRI of the lumbar spine results of which dictated as below. She has multiple changes in the MRI specially above the level of her fusion. She has reversal of spinal lordosis. She has kissing osteophytes of the L1 through L3 and into L4 lumbar vertebra as. Those are most seen on the x-ray which was done for her as well. She has Modic type 1 changes in upper lumbar vertebras. She has minimal facet arthritis and ligamentum flavum thickening. There is no spinal canal or foraminal stenosis on any levels. Therefore I think that this patient is suffering from postlaminectomy syndrome. I would like to consider neuromodulation for her including pain pump and spinal cord stimulator. She past psych evaluation. Also there is significant Modic changes which could be addressed with intracept procedure. All this options were given to the patient. The patient after consideration decided that she wants to go for the pain pump. She adamantly refused to try spinal cord stimulator. She said that she had spinal cord stimulator in the past and it did not work for her. I offered her also intrasept procedure but she adamantly refused to go for intracept as well. I will schedule her for trial with bupivacaine because she is on Suboxone for OUD. Risks and benefits of the procedure were explained today to the patient. The patient will be scheduled fo r trial. [facility] Medical History Hair thinning Prolapse of female pelvic organs Bilateral finger arthralgia Coccyx pain Diabetes mellitus with diabetic neuropathy, without long-term current use of insulin Pain or burning when swallowing Heartburn Hepatomegaly Osteoarthritis, hip, bilateral Bilateral hip pain Lumbar spondylosis Bilateral groin pain Depressive 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 History of pneumonia Vitamin B12 deficiency Vitamin D deficiency Insomnia ADHD Community acquired bilateral lower lobe pneumonia Injury of left heel Cough Cigarette smoker motivated to quit Dysuria Left shoulder pain Dyslipidemia Low back pain Lumbar degenerative disc disease Mixed incontinence urge and stress TEA on CPAP Opiate addiction Depression COPD (chronic obstructive pulmonary disease) Surgical History H/O neck surgery Status post sleeve gastrectomy History of lumbar spinal fusion H/O colonoscopy Hx of cholecystectomy History of partial hysterectomy H/O tubal ligation History of lumbar fusion Family History Father Aneurysm Other No family history of cancer Social History Household Members: Children Household Members Other:: daughter Housing: House Are you a primary personal care attendant to a significant other at home: No Do you presently have visiting nurse or other home services: No Alcohol intake: never Patient Tobacco Use Status: Current everyday Tobacco user Tobacco use type: Cigarette Cigarettes Per Day: 10 e-Cigarette/Vaping Use: Currently Using Second Hand Smoke Exposure: Yes service: No Current occupational status: unemployed Cognitive needs: Yes (walker) Hearing needs: No Vision needs: Yes (glasses) Review of Systems Const All systems reviewed & are unremarkable except as noted in HPI and below ENT Reports Normal hearing present Neuro Reports Normal hearing present, Denies confusion and Denies Sensory deficit (Neuro) Psych Denies confusion Physical Exam Vital Signs: Last Vital Signs Pulse 71 02/05/23 12:58 Resp 16 02/05/23 12:58 BP 114/68 02/05/23 12:58 Pulse Ox 97 02/05/23 12:58 Oxygen Delivery Method Room Air 02/05/23 12:58 BMI result Body Mass Index 26.9 Const General: cooperative, alert, awake, in distress (due to pain) mild and moderate and anxious; No confusion Nutritional Appearance: obese morbidly obese Orientation/consciousness: patient oriented x3 and No confusion Limitations: ambulation with walker HEENT Head: Yes normal to inspection, Yes normocephalic and No occipital foramen tenderness Ears: hearing grossly normal bilaterally and external ears normal Face and sinus: Yes normal facial exam and Yes face symmetric Eyes General: appearance normal, both eyes and all related structures Visual Evangelista: normal visual evangelista by confrontation Pupils: Equal, round and reactive pupils present EOM: EOMs intact bilaterally Neck Neck: Yes normal visual inspection, Yes full ROM, Yes no lymphadenopathy, Yes supple, No anterior neck swelling and Yes no JVD Chest Chest palpation & inspection: normal inspection of the chest Resp Effort & Inspection: normal respiratory effort, able to speak in complete sentences, no audible wheezes, no cough, no respiratory distress and symmetric chest movement Cardio Jugular venous distension: no JVD Bruits: no carotid bruits Peripheral pulses: radial pulses present, posterior tibial pulses present and dorsalis pedis present GI Inspection: Yes normal to inspection, No distended, Yes Abdominal panniculus present and Yes obesity Palpation (GI): Soft to palpation and nontender General: Yes no CVA tenderness Back/Spine/Pelvis Other: Limited exam due to significant back and groin pain with movements or walking, able to stand on heels and tip toes with moderate difficulty due to pain. Can flex forward up to 50-60 degrees and extend to 5-10 degrees before experiencing moderate lumbar pain. Facet loading positive bilaterally, ROM limited to pain. Demonstrates 4/5 strength of quadriceps bilaterally as well as flexion/dorsiflexion of bilateral feet against resistance. 2+ pedal pulses bilaterally. Straight leg rise with dorsiflexion positive on the left. Significant groin pain with bilateral internal and external hip rotations. Antalgic gate, ambulates slowly with walker. Lateral and medial left hip rotation causes significant groin discomfort. The patient also reports groin pain with walking Back: no CVA tenderness Cervical Spine: cervical ROM normal Thoracic/Lumbar Spine: thoracic and lumbar spine normal to inspection, Thoracic/lumbar spine scar(s), Lasegue's sign positive, pain with thoraco-lumbar ROM, paraspinal muscle tenderness, thoraco-lumbar ROM limited with forward flexion (WNL) and with lateral flexion to the left (limited by pain) and straight leg raise positive left other (at 20 degrees) Pelvis: pain with anterior-posterior compression, pain with lateral compression, buttock tenderness bilaterally and no sciatic notch tenderness Skin General skin exam: no rashes or lesions noted Neuro General: patient oriented x3, moves all extremities, Normal light touch and pain sensation, deep tendon reflexes 2+ bilaterally and No confusion Cranial nerves: Yes Equal, round and reactive pupils present and Yes Normal hearing present Cognition (Neuro): normal cognition Gait exam (Neuro): Antalgic gait present and Assistive device used Motor exam (neuro): no tremor noted and Normal motor muscle tone present th roughout Sensory Exam: No Sensory deficit (Neuro) Deep tendon reflexes (DTR's): Right patellar reflex intensity grade: 1+, Left patellar reflex intensity grade: 2+, Right ankle reflex intensity grade: 1+ and Left ankle reflex intensity grade: 1+ Extrem General: Yes full ROM, Yes capillary refill normal, Yes no clubbing, cyanosis or edema and Yes no calf tenderness Psych Appearance: grossly normal Mental Status: mental status grossly normal Speech and movement: Normal speech and movement present, Pressured speech present and Psychomotor agitation in speech present Affect: normal affect and Irritable affect present Attitude: cooperative and Avoids eye contact (attititude/behavior) Thought process: Normal thought process present and Circumstantial thought process present Thought content: Normal thought content present Assessment & Plan Assessment & Plan (1) Postlaminectomy syndrome: Code(s): M96.1 - Postlaminectomy syndrome, not elsewhere classified (2) History of lumbar spinal fusion: Code(s): Z98.1 - Arthrodesis status (3) Lumbar degenerative disc disease: Code(s): M51.36 - Other intervertebral disc degeneration, lumbar region (4) Lumbar spondylosis: Code(s): M47.816 - Spondylosis without myelopathy or radiculopathy, lumbar region (5) Lumbar radiculopathy: Code(s): M54.16 - Radiculopathy, lumbar region (6) Osteoarthritis, hip, bilateral: Code(s): M16.0 - Bilateral primary osteoarthritis of hip (7) Bilateral hip pain: Code(s): M25.551 - Pain in right hip; M25.552 - Pain in left hip (8) Low back pain: Code(s): M54.5 - Low back pain Qualifiers: Back pain laterality: bilateral Chronicity: chronic Sciatica presence: without sciatica Qualified Code(s): M54.50 - Low back pain, unspecified; G89.29 - Other chronic pain (9) Chronic pain syndrome: Code(s): G89.4 - Chronic pain syndrome Plan: Intrathecal pain pump trial Informed consent was explained to the patient. All questions were explained and answered.? The patient was taken inside of the operating room where he was positioned prone on the operating table.? Time-out was performed delineating patient's name and date of , correct site, side, the nature of the procedure, patient's allergy, preoperative antibiotic if needed.? All operating room staff And the patient were participating in OR time-out procedure. ?the patient's lower back was prepped with ChloraPrep and draped with sterile? utility draped.? Sterilely draped C-arm was brought over the operating field and sq picture of? lumbar vertebrae were delineated on the screen. the target of needle insertion was chosen between L2 and L3 vertebrae. extensive hardware in the patient's L4-5 and S1 lower back was noted.? The projection of the right lamina of the L2 vertebra was chosen as the starting point of the injection.? 22 gauge 3-1/2 inch whittackre needle was inserted thr ough the skin after skin wheal was raised with lidocaine 2%.? The needle was directed to the interlaminar space.? The advancement of the needle was performed on intermittent anterior posterior and lateral views.? On anterior posterior view needle was keppped strictly in the midline.? On the lateral view needle entered in the projection of the center of the spinal canal.? At that moment the stylet was removed from the needle and clear flow CSF was detected in the needle hub.? After that ? 0.4 mL solution containing 2 mg of bupivacaine PF was injected into the needle. After that needle was removed sterile dressing was applied.? Patient tolerated procedure well.? She was taken outside of the operating room to the recovery room where he recovered uneventfully. (10) Thrombocytopenia: Code(s): D69.6 - Thrombocytopenia, unspecified Plan Reports today with the new severe pain in the anterior hip and thigh. Reports pain radiation in the groin. Had x ray 1 year ago demonstrating hip osteoarthritis. She received hip steroid injection with pain aggravation only. I will refer her to Orthopedic surgery for possible evaluation of total hip replacement. The pain pump trial as above. Patient with chronic pain syndrome related to arthritis and degenerative changes of her lumbar spine, s/p 5 back surgeries with lumbar fusion. After MRI becomes more clear that she is suffering from postlaminectomy syndrome. No spinal canal stenosis. The vertebras above the fusion are demonstrating Modic 1 type changes which could be another pain generator for her. She reports most significant pain when she is laying in bed. Spinal cord stimulator, intrathecal drug delivery system pain pump are conside red. the patient the patient chose to go for pain pump trial. She is on Suboxone for opioid use disorder. She was diagnosed with thrombocytopenia but her platelets last time were 137,000. Nevertheless I need her to submit platelets 2 days before the trial. Because she is on Suboxone the 1st trial will be with bupivacaine. Trial with clonidine and baclofen could be considered. If she wants to go for opioid trial she needs to stop her medications Suboxone for 1 week before the trial and 4 months before the implant. Anticoagulation: Patient not on anticoagulant Justification for interventional therapy: ? Patient with average pain > 6/10 ? Patient has exhausted conservative therapy ? Patient unable to tolerate physical therapy due to pain The risks, consequences, alternatives, and benefits of various treatment options were discussed with the patient in great detail, including conservative management, injections and procedures. I informed her of the hyperglycemic effects of steroids. Orders: Orders FL guidance in treatment room Today G89.4 - Chronic pain syndrome Coding Level of Care Code Procedure Only Diagnoses Postlaminectomy syndrome M96.1 History of lumbar spinal fusion Z98.1 Lumbar degenerative disc disease M51.36 Lumbar spondylosis M47.816 Lumbar radiculopathy M54.16 Osteoarthritis, hip, bilateral M16.0 Bilateral hip pain M25.551; M25.552 Low back pain M54.50; G89.29 Back pain laterality: bilateral Chronicity: chronic Sciatica presence: without sciatica Chronic pain syndrome G89.4 Thrombocytopenia D69.6
[2023-02-05 12:58] VITALS: BP 114/68; PULSE 71; RESP 16; O2SAT 97; BMI 26.9
== END 2023-02-05 12:35 | disposition home or self-care (01) ==
LOC: HO.PMCPRC 10:58
PROVIDERS: PCP Internal Medicine; Visit Provider Anesthesiology
DX: M96.1 Postlaminectomy syndrome, not elsewhere classified (principal); G89.4 Chronic pain syndrome; Z98.1 Arthrodesis status; M51.36 Other intervertebral disc degeneration, lumbar region
CPT/HCPCS: 62323

== ENCOUNTER 2023-02-11 10:20 | Outpatient (AMB) | payer MEDICARE, MEDICAID, SELFPAY ==
--- NOTE | 2023-02-11 10:27 | A.OFFVIS_ITS ---
Intake Vital Signs 02/11/23 10:49 Height 5 ft 4 in Weight 158 lb BMI 27.1 BP 113/52 L Blood Pressure Location Rt brachial Position Sitting Respiration 16 Pulse 68 Pulse Source Pulse Oximeter Pulse Oximetry (%) 95 Oxygen Delivery Method Room Air Intake Visit Reasons: ITDD TRIAL W/BUPI 02/05/23 Allergies bupropion [From Wellbutrin] Allergy (Intermediate, Verified 02/11/23 10:49) Itching influenza virus vaccine, specific [FLU VACCINE] Allergy (Unknown, Verified 02/11/23 10:49) RASH latex Allergy (Unknown, Verified 02/11/23 10:49) Rash Sulfa (Sulfonamide Antibiotics) Allergy (Unknown, Verified 02/11/23 10:49) UNKNOWN, itch, itching baclofen Allergy (Verified 02/11/23 10:49) twitching, falling down HPI HPI Comments History of Present Illness Details Justa is back in my office to discuss the results of the trial of intrathecal drug delivery system pain pump. She reported 2 days of 50% pain reduction. She reported that her activities of daily living improved, her mobility remain the same mostly on the account of right hip pain. She had significant right hip arthritis. She received intra-articular hip injections in the past with no result. She requests me to send her for orthopedic surgery consult in relation to THR on the left. As of her pain pump she would like me to schedule her for implantation of intrathecal drug delivery system pain pump. Risks and benefits were carefully explained to the patient. She does not want to continue trialing. She requests me to prescribe her motorized scooter to improve her mobility. I will issue prescription to her on paper. She will bring it to [facility]. She is suffering from postlaminectomy syndrome. She has pain in the lower back with minimal radiation bilaterally. She reports that she had 4 surgeries on her lumbar spine on her x-ray of the lumbar spine there is intradiscal hardware at L5-S1 interspace as well as L4-5 interspace and there is also transpedicular screws and rods fusing L4-5 vertebra as. I send her to MRI of the lumbar spine results of which dictated as below. She has multiple changes in the MRI specially above the level of her fusion. She has reversal of spinal lordosis. She has kissing osteophytes of the L1 through L3 and into L4 lumbar vertebra as. Those are most seen on the x-ray which was done for her as well. She has Modic type 1 changes in upper lumbar vertebras. She has minimal facet arthritis and ligamentum flavum thickening. There is no spinal canal or foraminal stenosis on any levels. Therefore I think that this patient is suffering from postlaminectomy syndrome. I would like to consider neuromodulation for her including pain pump and spinal cord stimulator. She past psych evaluation. She has negative about spinal cord stimulation and insisted on intrathecal drug delivery system pain pump. Also there is significant Modic changes which could be addressed with intracept procedure. All this options were again given to the patient. She would like to proceed with bupivacaine pain pump. The patient after consideration decided that she wants to go for the pain pump. She adamantly refused to try spinal cord stimulator. She said that she had spinal cord stimulator in the past and it did not work for her. I offered her also intrasept procedure but she adamantly refused to go for intracept as well. She is on Suboxone for OUD. Risks and benefits of the procedure were explained today to the patient. The patient will be scheduled for trial. [facility] Medical History Hair thinning Prolapse of female pelvic organs Bilateral finger arthralgia Coccyx pain Diabetes mellitus with diabetic neuropathy, without long-term current use of insulin Pain or burning when swallowing Heartburn Hepatomegaly Osteoarthritis, hip, bilateral Bilateral hip pain Lumbar spondylosis Bilateral groin pain Depressive 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 History of pneumonia Vitamin B12 deficiency Vitamin D deficiency Insomnia ADHD Community acquired bilateral lower lobe pneumonia Injury of left heel Cough Cigarette smoker motivated to quit Dysuria Left shoulder pain Dyslipidemia Low back pain Lumbar degenerative disc disease Mixed incontinence urge and stress TEA on CPAP Opiate addiction Depression COPD (chronic obstructive pulmonary disease) Surgical History H/O neck surgery Status post sleeve gastrectomy History of lumbar spinal fusion H/O colonoscopy Hx of cholecystectomy History of partial hysterectomy H/O tubal ligation History of lumbar fusion Family History Father Aneurysm Other No family history of cancer Social History Household Members: Children Household Members Other:: daughter Housing: House Are you a primary out of school hours care worker to a significant other at home: No Do you presently have visiting nurse or other home services: No Alcohol intake: never Patient Tobacco Use Status: Current everyday Tobacco user Tobacco use type: Cigarette Cigarettes Per Day: 10 e-Cigarette/Vaping Use: Currently Using Second Hand Smoke Exposure: Yes service: No Current occupational status: unemployed Cognitive needs: Yes (walker) Hearing needs: No Vision needs: Yes (glasses) Review of Systems Const All systems reviewed & are unremarkable except as noted in HPI and below ENT Reports Normal hearing present Neuro Reports Normal hearing present, Denies confusion and Denies Sensory deficit (Neuro) Psych Denies confusion Physical Exam Vital Signs: Last Vital Signs Pulse 68 02/11/23 10:49 Resp 16 02/11/23 10:49 BP 113/52 L 02/11/23 10:49 Pulse Ox 95 02/11/23 10:49 Oxygen Delivery Method Room Air 02/11/23 10:49 BMI result Body Mass Index 27.1 Const General: cooperative, alert, awake, in distress (due to pain) mild and moderate and anxious; No confusion Nutritional Appearance: obese morbidly obese Orientation/consciousness: patient oriented x3 and No confusion Limitations: ambulation with walker HEENT Head: Yes normal to inspection, Yes normocephalic and No occipital foramen tenderness Ears: hearing grossly normal bilaterally and external ears normal Face and sinus: Yes normal facial exam and Yes face symmetric Eyes General: appearance normal, both eyes and all related structures Visual Evangelista: normal visual evangelista by confrontation Pupils: Equal, round and reactive pupils present EOM: EOMs intact bilaterally Neck Neck: Yes normal visual inspection, Yes full ROM, Yes no lymphadenopathy, Yes supple, No anterior neck swelling and Yes no JVD Chest Chest palpation & inspection: normal inspection of the chest Resp Effort & Inspection: normal respiratory effort, able to speak in complete sentences, no audible wheezes, no cough, no respiratory distress and symmetric chest movement Cardio Jugular venous distension: no JVD Bruits: no carotid bruits Peripheral pulses: radial pulses present, posterior tibial pulses present and dorsalis pedis present GI Inspection: Yes normal to inspection, No distended, Yes Abdominal panniculus present and Yes obesity Palpation (GI): Soft to palpation and nontender General: Yes no CVA tenderness Back/Spine/Pelvis Other: Limited exam due to significant back and groin pain with movements or walking, able to stand on heels and tip toes with moderate difficulty due to pain. Can flex forward up to 50-60 degrees and extend to 5-10 degrees before experiencing moderate lumbar pain. Facet loading positive bilaterally, ROM limited to pain. Demonstrates 4/5 strength of quadriceps bilaterally as well as flexion/dorsiflexion of bilateral feet against resistance. 2+ pedal pulses bilaterally. Straight leg rise with dorsiflexion positive on the left. Significant groin pain with bilateral internal and external hip rotations. Antalgic gate, ambulates slowly with walker. Lateral and medial left hip rotation causes significant groin discomfort. The patient also reports groin pain with walking Back: no CVA tenderness Cervical Spine: cervical ROM normal Thoracic/Lumbar Spine: thoracic and lumbar spine normal to inspection, Thoracic/lumbar spine scar(s), Lasegue's sign positive, pain with thoraco-lumbar ROM, paraspinal muscle tenderness, thoraco-lumbar ROM limited with forward flexion (WNL) and with lateral flexion to the left (limited by pain) and straight leg raise positive left other (at 20 degrees) Pelvis: pain with anterior-posterior compression, pain with lateral compression, buttock tenderness bilaterally and no sciatic notch tenderness Skin General skin exam: no rashes or lesions noted Neuro General: patient oriented x3, moves all extremities, Normal light touch and pain sensation, deep tendon reflexes 2+ bilaterally and No confusion Cranial nerves: Yes Equal, round and reactive pupils present and Yes Normal hearing present Cognition (Neuro): normal cognition Gait exam (Neuro): Antalgic gait present and Assistive device used Motor exam (neuro): no tremor noted and Normal motor muscle tone present throughout Sensory Exam: No Sensory deficit (Neuro) Deep tendon reflexes (DTR's): Right patellar reflex intensity grade: 1+, Left patellar reflex intensity grade: 2+, Right ankle reflex intensity grade: 1+ and Left ankle reflex intensity grade: 1+ Extrem General: Yes full ROM, Yes capillary refill normal, Yes no clubbing, cyanosis or edema and Yes no calf tenderness Psych Appearance: grossly normal Mental Status: mental status grossly normal Speech and movement: Normal speech and movement present, Pressured speech present and Psychomotor agitation in speech present Affect: normal affect and Irritable affect present Attitude: cooperative and Avoids eye contact (attititude/behavior) Thought process: Normal thought process present and Circumstantial thought process present Thought content: Normal thought content present Assessment & Plan Assessment & Plan (1) Osteoarthritis of right hip: Code(s): M16.11 - Unilateral primary osteoarthritis, right hip (2) Postlaminectomy syndrome: Code(s): M96.1 - Postlaminectomy syndrome, not elsewhere classified (3) History of lumbar spinal fusion: Code(s): Z98.1 - Arthrodesis status (4) Lumbar degenerative disc disease: Code(s): M51.36 - Other intervertebral disc degeneration, lumbar region (5) Lumbar spondylosis: Code(s): M47.816 - Spondylosis without myelopathy or radiculopathy, lumbar region (6) Lumbar radiculopathy: Code(s): M54.16 - Radiculopathy, lumbar region (7) Osteoarthritis, hip, bilateral: Code(s): M16.0 - Bilateral primary osteoarthritis of hip (8) Bilateral hip pain: Code(s): M25.551 - Pain in right hip; M25.552 - Pain in left hip (9) Low back pain: Code(s): M54.5 - Low back pain Qualifiers: Back pain laterality: bilateral Chronicity: chronic Sciatica presence: without sciatica Qualified Code(s): M54.50 - Low back pain, unspecified; G89.29 - Other chronic pain (10) Chronic pain syndrome: Code(s): G89.4 - Chronic pain syndrome Plan: (11) Thrombocytopenia: Code(s): D69.6 - Thrombocytopenia, unspecified Plan Severe hip OA, intra-articular hip injection did not work, see arthrogram image please. Patient is knee interested in THR. Will schedule her for the pain pump implantation. She had only 50% pain relief however it was lasting for 48 hours. This is much longer than presumable action of bupivacaine. Risks and benefits and caution were explained to the patient in regarding of the pain pump.. Adamantly refused SCS, adamantly refused intercept. Patient with chronic pain syndrome related to arthritis and degenerative changes of her lumbar spine, s/p 5 back surgeries with lumbar fusion. After MRI becomes more clear that she is suffering from postlaminectomy syndrome. No spinal canal stenosis. The vertebras above the fusion are demonstrating Modic 1 type changes which could be another pain generator for her. She reports most significant pain when she is laying in bed. the patient the patient chose to go for pain pump trial. She is on Suboxone for opioid use disorder. She was diagnosed with thrombocytopenia but her platelets last time were 137,000. I entered the scheduling CBC to be done to to 4 days before the procedure She is on Suboxone for OUD. Patient not on anticoagulant Justification for interventional therapy: ? Patient with average pain > 6/10 ? Patient has exhausted conservative therapy ? Patient unable to tolerate physical therapy due to pain The risks, consequences, alternatives, and benefits of various treatment options were discussed with the patient in great detail, including conservative management, injections and procedures. I informed her of the hyperglycemic effects of steroids. Orders: Orders Complete Blood Count Auto Diff Today D69.6 - Thrombocytopenia, unspecified Referrals Orthopedics Referral M16.11 - Unilateral primary osteoarthritis, right hip Patient Instructions: I here by testify that I spent 40 minutes in conversation with this patient as well as planning her care, make necessary referral regarding to THR, organizing her note, and make preparation necessary for future surgery. Coding Level of Care Code Est Pt Level 5 (43561) Diagnoses Osteoarthritis of right hip M16.11 Postlaminectomy syndrome M96.1 History of lumbar spinal fusion Z98.1 Lumbar degenerative disc disease M51.36 Lumbar spondylosis M47.816 Lumbar radiculopathy M54.16 Osteoarthritis, hip, bilateral M16.0 Bilateral hip pain M25.551; M25.552 Low back pain M54.50; G89.29 Back pain laterality: bilateral Chronicity: chronic Sciatica presence: without sciatica Chronic pain syndrome G89.4 Thrombocytopenia D69.6
[2023-02-11 10:49] VITALS: BP 113/52; PULSE 68; RESP 16; O2SAT 95; BMI 27.1
== END 2023-02-11 11:05 | disposition home or self-care (01) ==
PROVIDERS: PCP Internal Medicine; Visit Provider Anesthesiology
DX: M16.11 Unilateral primary osteoarthritis, right hip (principal); M96.1 Postlaminectomy syndrome, not elsewhere classified; Z98.1 Arthrodesis status; M51.36 Other intervertebral disc degeneration, lumbar region; M47.816 Spondylosis without myelopathy or radiculopathy, lumbar region; M54.16 Radiculopathy, lumbar region; M16.0 Bilateral primary osteoarthritis of hip; M25.551 Pain in right hip; M25.552 Pain in left hip; M54.50 Low back pain, unspecified; G89.29 Other chronic pain; G89.4 Chronic pain syndrome
CPT/HCPCS: 99215

== ENCOUNTER → 2023-02-11 10:20 | Outpatient (BNVA) | payer OTHER, MEDICARE, MEDICAID, SELFPAY | PROVIDERS: PCP Internal Medicine; Visit Provider Anesthesiology | DX: M16.11 Unilateral primary osteoarthritis, right hip (principal); M96.1 Postlaminectomy syndrome, not elsewhere classified; M51.36 Other intervertebral disc degeneration, lumbar region; M47.816 Spondylosis without myelopathy or radiculopathy, lumbar region; M16.0 Bilateral primary osteoarthritis of hip; M54.16 Radiculopathy, lumbar region; M54.50 Low back pain, unspecified; G89.29 Other chronic pain; D69.6 Thrombocytopenia, unspecified; Z98.1 Arthrodesis status | CPT/HCPCS: 99212 ==

== ENCOUNTER 2023-02-19 12:23 | Outpatient (AMB) | payer MEDICARE, MEDICAID, SELFPAY ==
--- NOTE | 2023-02-19 12:28 | A.OFFVIS_ITS ---
Intake VS Expanded 02/19/23 12:32 BP 110/53 L Blood Pressure Location Rt brachial Blood Pressure Position Sitting Pulse 65 Pulse Source Pulse Oximeter Temp 97.4 F Temperature Source Tympanic Pulse Oximetry 97 Oxygen Delivery Method Room Air Height 5 ft 4 in Weight 163 lb 2.273 oz BMI 28.0 Intake Visit Reasons: (OV) PO LSG 10/24/21 Allergies bupropion [From Wellbutrin] Allergy (Intermediate, Verified 02/19/23 12:37) Itching influenza virus vaccine, specific [FLU VACCINE] Allergy (Unknown, Verified 01/22 05/14 12:37) RASH latex Allergy (Unknown, Verified 02/19/23 12:37) Rash Sulfa (Sulfonamide Antibiotics) Allergy (Unknown, Verified 02/19/23 12:37) UNKNOWN, itch, itching baclofen Allergy (Verified 02/19/23 12:37) twitching, falling down Medication List - Last Reconciled 02/19/23 by ALON Inman albuterol sulfate 2.5 mg (3 mL) inhalation Q6H PRN albuterol sulfate 90 mcg/actuation (Ventolin HFA) 2 puffs PO QID PRN atorvastatin 20 mg PO DAILY buprenorphine-naloxone 8-2 mg 1 strip sublingual BID clotrimazole 1% 1 appl topical BID dextroamphetamine-amphetamine 30 mg 30 mg PO BID@0900,1300 diclofenac sodium 1% 2 grams topical QID PRN divalproex ER 1,500 mg PO QPM gabapentin 800 mg PO TID 30 days linaclotide (Linzess) 290 mcg PO QAM olopatadine 0.1% (Pataday Twice Daily Relief) 1 drp ophthalmic (eye) BID pantoprazole 40 mg PO DAILY risperidone (Risperdal) 2 mg PO BEDTIME sertraline 100 mg PO QAM trazodone 3 tabs PO BEDTIME HPI HPI Comments History of Present Illness Details This?is a?62?yo female who is s/p LSG 10/24/2021. Presents for 15 month post op visit. Weight at last visit on 10/25/2022 was 148 pounds with a BMI of 26.2, weight today is 163 pounds, representing a 15 pound weight gain with a BMI today of 28.? She reports that her home scale says 154lbs. No complaints of nausea, emesis, abdominal pain or reflux, or constipation. Present meal plan includes: has a Celebrate protein shake in morning, has a muffin not eating lunch meat, side, veg for dinner will sometimes have a protein bar or bowl of cereal at night All meals last 20 - 30 minutes and does not drink and eat at the same time. Exercise routine includes: limited due to pain, walks with a walker Pt reports problems with excess skin of abdomen. She continues to have difficulty with rashes, not well controlled by clotrimazole. If sweat or moisture collects in the skin fold it becomes very malodorous, has to wash frequently. Very uncomfortable and painful even when walking due to the heaviness of the skin. She also complains of problems of excess skin of arms. She develops irritation from excess skin rubbing against her body. Also causes discomfort due to heaviness. [facility] Medical History Hair thinning Prolapse of female pelvic organs Bilateral finger arthralgia Coccyx pain Diabetes mellitus with diabetic neuropathy, without long-term current use of insulin Pain or burning when swallowing Heartburn Hepatomegaly Osteoarthritis, hip, bilateral Bilateral hip pain Lumbar spondylosis Bilateral groin pain Depressive 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 History of pneumonia Vitamin B12 deficiency Vitamin D deficiency Insomnia ADHD Community acquired bilateral lower lobe pneumonia Injury of left heel Cough Cigarette smoker motivated to quit Dysuria Left shoulder pain Dyslipidemia Low back pain Lumbar degenerative disc disease Mixed incontinence urge and stress TEA on CPAP Opiate addiction Depression COPD (chronic obstructive pulmonary disease) Surgical History H/O neck surgery Status post sleeve gastrectomy History of lumbar spinal fusion H/O colonoscopy Hx of cholecystectomy History of partial hysterectomy H/O tubal ligation History of lumbar fusion Family History Father Aneurysm Other No family history of cancer Social History Household Members: Children Household Members Other:: daughter Housing: House Are you a primary life care planner to a significant other at home: No Do you presently have visiting nurse or other home services: No Alcohol intake: never Patient Tobacco Use Status: Current everyday Tobacco user Tobacco use type: Cigarette Cigarettes Per Day: 10 e-Cigarette/Vaping Use: Currently Using Second Hand Smoke Exposure: Yes service: No Current occupational status: unemployed Cognitive needs: Yes (walker) Hearing needs: No Vision needs: Yes (glasses) Physical Exam Const General: cooperative, comfortable and no acute distress Orientation/consciousness: patient oriented x3 GI Other: soft, nontender, nondistended, incisions well healed, no hernia, no masses Grade II pannus, some scattered erythema at umbilicus Neuro General: patient oriented x3 Assessment & Plan Assessment & Plan (1) Overweight: Code(s): E66.3 - Overweight (2) Status post sleeve gastrectomy: Comment: 10/24/2021 Code(s): Z90.3 - Acquired absence of stomach [part of] Plan Pt eating off plan items, skipping meals, not getting enough protein. New meal plan: breakfast- 2 scoops in 8 oz unsweetened almond milk, no muffin lunch- another shake dinner- 4-6 forks protein, 4-6 forks veg, 2-4 forkfuls starch at this time she is only interested in panniculectomy. Continue clotrimazole ointment for rashes of excess skin. Excess skin of abdomen is causing recurrent painful rashes not completely resolved by topical rx, and causing limitation to physical function. pt aware that she needs to be smoke free for 1 month prior to additional surgery. She feels motivated to quit and has nicotine patches at home. RTC 3 months for 18 month visit. Patient is overweight and is not considered stable at this time. I spent a total of 30 minutes reviewing/updating records, examining the patient and counseling the patient on weight management as detailed above. Coding Level of Care Code Est Pt Level 4 (46790) Diagnoses Overweight E66.3 Status post sleeve gastrectomy Z90.3
[2023-02-19 12:32] VITALS: BP 110/53; PULSE 65; TEMP 36.3; O2SAT 97; BMI 28.0
== END 2023-02-19 13:06 | disposition home or self-care (01) ==
PROVIDERS: PCP Internal Medicine; Visit Provider Physician Assistant Surgical
DX: E66.3 Overweight (principal); Z68.28 Body mass index [BMI] 28.0-28.9, adult; Z90.3 Acquired absence of stomach [part of]; Z98.84 Bariatric surgery status; L98.7 Excessive and redundant skin and subcutaneous tissue
CPT/HCPCS: 99214

== ENCOUNTER → 2023-02-19 12:23 | Outpatient (BNVA) | payer MEDICARE, MEDICAID, SELFPAY | PROVIDERS: PCP Internal Medicine; Visit Provider Physician Assistant Surgical | DX: E66.3 Overweight (principal); Z90.3 Acquired absence of stomach [part of]; Z68.28 Body mass index [BMI] 28.0-28.9, adult | CPT/HCPCS: 99212 ==

== ENCOUNTER 2023-02-21 08:55 | Outpatient (REF) | payer MEDICARE, MEDICAID, SELFPAY ==
[2023-02-21 11:40] LABS: Estimated Average Glucose 105 mg/dL; Hemoglobin A1c % 5.3 % (<6.0)
[2023-02-21 12:13] LABS: Anion Gap 9 (12-20); Blood Urea Nitrogen 16 mg/dL (9-16); Calcium 9.5 mg/dL (8.4-10.2); Carbon Dioxide 35 mmol/L (22-29); Chloride 103 mmol/L (96-108); Cholesterol 252 mg/dL (<200); Estimated Glomerular Filt Rate > 60; Glucose Fasting 105 mg/dL (60-99); HDL Cholesterol 57 mg/dL (>40); LDL Cholesterol Calculated 173 mg/dL (<100); Sodium 143 mmol/L (135-145); Triglycerides 111 mg/dL (<150)
[2023-02-21 12:27] LABS: Creatinine Urine 165.78 mg/dL
== END 2023-02-21 08:56 | disposition home or self-care (01) ==
LOC: HO.HMGCLDS 08:55
PROVIDERS: PCP Internal Medicine; Visit Provider Internal Medicine
DX: E78.5 Hyperlipidemia, unspecified (principal); E11.40 Type 2 diabetes mellitus with diabetic neuropathy, unspecified
CPT/HCPCS: 36415; 80048; 80061; 82043; 82570; 83036

== ENCOUNTER 2023-02-28 11:42 | Outpatient (REF) | payer MEDICARE, MEDICAID, SELFPAY ==
--- NOTE | ~2023-02-28 | XR_ITS ---
EXAMINATION: XR PELVIS CLINICAL INFORMATION: Hip pain. COMPARISON: Radiographs dated 08/03/2021. TECHNIQUE: AP view of the pelvis. FINDINGS: Bony alignment and mineralization are normal. The acetabular joint spaces are well-maintained. There is mild irregularity of the acetabular roofs. The femoral heads appear smooth. There is no fracture or dislocation. The sacroiliac joints are symmetric and well-maintained, and the pubic symphysis is intact. There are incompletely characterized degenerative changes of the lower lumbar spine, and orthopedic hardware is noted at L4-L5 and L5-S1. XR/XR pelvis 1-2V IMPRESSION: There is very mild degenerative change of the hips. No fracture or dislocation is seen.
== END 2023-02-28 11:43 | disposition home or self-care (01) ==
LOC: HO.HOSX 11:42
PROVIDERS: Visit Provider Orthopaedic Surgery
DX: M16.12 Unilateral primary osteoarthritis, left hip (principal); M79.605 Pain in left leg; G89.4 Chronic pain syndrome; M96.1 Postlaminectomy syndrome, not elsewhere classified; E11.40 Type 2 diabetes mellitus with diabetic neuropathy, unspecified; Z79.891 Long term (current) use of opiate analgesic; Z79.899 Other long term (current) drug therapy
CPT/HCPCS: 72170; 99212

== ENCOUNTER 2023-02-28 14:36 | Outpatient (AMB) | payer MEDICARE, MEDICAID, SELFPAY ==
--- NOTE | 2023-02-28 14:43 | MHC.OFFVIS ---
Intake Vital Signs 02/28/23 14:44 Height 5 ft 4 in Weight 163 lb BMI 28.0 Intake Visit Reasons: ov- discuss right hip arthroplasty Intake Note: Justa is a 62 year old female who presents today to discuss possible Left LEYDI. On suboxone, moving forward with intrathecal drug delivery system pain pump for post laminectomy syndrome. Patient reports that she has had no previous treatment of the left hip, her pain is felt on the thigh and radiates to the groin area. Allergies bupropion [From Wellbutrin] Allergy (Intermediate, Verified 02/19/23 12:37) Itching influenza virus vaccine, specific [FLU VACCINE] Allergy (Unknown, Verified 02/19/23 12:37) RASH latex Allergy (Unknown, Verified 02/19/23 12:37) Rash Sulfa (Sulfonamide Antibiotics) Allergy (Unknown, Verified 02/19/23 12:37) UNKNOWN, itch, itching baclofen Allergy (Verified 02/19/23 12:37) twitching, falling down HPI ov- discuss right hip arthroplasty HPI Details This is a 62 year old Diabetic woman who presents with complaints of left leg & hip pain. She has pain with daily activity, which she says is constant. She says this has been present o ~2 months now and finds no relief from her pain. She says her pain occurs primarily in her thigh as well as an ache, when she walks. She walks using a walker and denies any prior treatment for her left hip. She says she has been using a walker for the last year or so . She says she has tried hip joint injections for her right hip, which didn't help at all. She is on Suboxone and Gabapentin for pain control. She has a hx of chronic pain syndrome, postlaminectomy syndrome, and follows with pain management for lumbar injections, which are not helpful, and is scheduled to have an intrathecal pain pump implanted on 03/22/23. [facility] Medical History Hair thinning Prolapse of female pelvic organs Bilateral finger arthralgia Coccyx pain Diabetes mellitus with diabetic neuropathy, without long-term current use of insulin Pain or burning when swallowing Heartburn Hepatomegaly Osteoarthritis, hip, bilateral Bilateral hip pain Lumbar spondylosis Bilateral groin pain Depressive 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 History of pneumonia Vitamin B12 deficiency Vitamin D deficiency Insomnia ADHD Community acquired bilateral lower lobe pneumonia Injury of left heel Cough Cigarette smoker motivated to quit Dysuria Left shoulder pain Dyslipidemia Low back pain Lumbar degenerative disc disease Mixed incontinence urge and stress TEA on CPAP Opiate addiction Depression COPD (chronic obstructive pulmonary disease) Surgical History H/O neck surgery Status post sleeve gastrectomy History of lumbar spinal fusion H/O colonoscopy Hx of cholecystectomy History of partial hysterectomy H/O tubal ligation History of lumbar fusion Family History Father Aneurysm Other No family history of cancer Social History Household Members: Children Household Members Other:: daughter Housing: House Are you a primary dog daycare provider to a significant other at home: No Do you presently have visiting nurse or other home services: No Alcohol intake: never Patient Tobacco Use Status: Current everyday Tobacco user Tobacco use type: Cigarette Cigarettes Per Day: 10 e-Cigarette/Vaping Use: Currently Using Second Hand Smoke Exposure: Yes service: No Current occupational status: unemployed Cognitive needs: Yes (walker) Hearing needs: No Vision needs: Yes (glasses) Review of Systems Const All systems reviewed & are unremarkable except as noted in HPI and below Physical Exam Vital Signs: BMI result Body Mass Index 28.0 Const General: no acute distress, alert and awake Orientation/consciousness: patient oriented x3 HEENT Head: Yes normocephalic and Yes atraumatic Eyes EOM: EOMs intact bilaterally Resp Effort & Inspection: normal respiratory effort and able to speak in complete sentences Cardio Jugular venous distension: no JVD Skin General skin exam: turgor normal Rashes: no rashes Neuro General: patient oriented x3 Extrem Other: Left Hip: Very mild pain with FADIR Stooped gait with limited hip flexion bilaterally Psych Appearance: grossly normal Affect: normal affect Attitude: cooperative Results Reviewed Results Reviewed: I personally reviewed relevant radiographs s/p lumbar fusion Mild right hip OA and moderate left hip OA Assessment & Plan Assessment & Plan (1) Osteoarthritis of left hip: Code(s): M16.12 - Unilateral primary osteoarthritis, left hip Plan: This is a 62 year old woman with left hip OA, and ~2 months of pain in her thigh. She has pain with daily activity, worse with ambulation, and no relieving factors. She denies any prior treatment and ambulates with an assistive walker. She currently follows with Pain Management for multiple pain generators and is scheduled to have an intrathecal pain pump implanted on 03/22/23. She is currently on Suboxone BID. I discussed her diagnosis and treatment options. I recommend left hip injection. I prescribed NSAIDs for her, she will follow up when completed for review. (2) Chronic pain syndrome: Code(s): G89.4 - Chronic pain syndrome (3) Postlaminectomy syndrome: Code(s): M96.1 - Postlaminectomy syndrome, not elsewhere classified (4) Diabetes mellitus with diabetic neuropathy, without long-term current use of insulin: Code(s): E11.40 - Type 2 diabetes mellitus with diabetic neuropathy, unspecified Plan: Her most recent HgA1c was 5.3% on 02/21/23. Plan Scribed for Emanuel Kunz MD by Jose Antonio Servin, medical detail representative, on 02/28/23 at 3:00 PM, EST. Orders: Orders XR pelvis 1-2V 02/28/23 M25.559 - Pain in unspecified hip Referrals Pain Management Referral M16.12 - Unilateral primary osteoarthritis, left hip Coding Level of Care Code Est Pt Level 4 (01745) Diagnoses Osteoarthritis of left hip M16.12 Chronic pain syndrome G89.4 Postlaminectomy syndrome M96.1 Diabetes mellitus with diabetic neuropathy, without long-term current use of insulin E11.40
[2023-02-28 14:44] VITALS: BMI 28.0
== END 2023-02-28 15:30 | disposition home or self-care (01) ==
PROVIDERS: PCP Internal Medicine; Visit Provider Orthopaedic Surgery
DX: M16.12 Unilateral primary osteoarthritis, left hip (principal); M96.1 Postlaminectomy syndrome, not elsewhere classified; G89.4 Chronic pain syndrome; E11.40 Type 2 diabetes mellitus with diabetic neuropathy, unspecified
CPT/HCPCS: 99214

== ENCOUNTER 2023-03-08 12:06 | Outpatient (AMB) | payer MEDICARE, MEDICAID, SELFPAY ==
[2023-03-08 12:10] VITALS: BMI 28.0
--- NOTE | 2023-03-08 12:10 | MHC.OFFVIS ---
Intake Vital Signs 03/08/23 12:10 Height 5 ft 4 in Weight 163 lb BMI 28.0 Intake Visit Reasons: OV - Left Hip Pain Intake Note: Justa is a 62 year old female who presents today for a follow up of her left hip pain. Currently on suboxone BID. At her last visit on 02/28/23 she was given a prescription for Celebrex and a referral to pain mgmt for injection. Booked for pain pump on 03/22/23, recently contacted pain mgmt for medication as celebrex is not helping they provided her with tylenol arthritis. Allergies bupropion [From Wellbutrin] Allergy (Intermediate, Verified 03/27/23 13:04) Itching influenza virus vaccine, specific [FLU VACCINE] Allergy (Unknown, Verified 03/27/23 13:04) RASH latex Allergy (Unknown, Verified 03/27/23 13:04) Rash Sulfa (Sulfonamide Antibiotics) Allergy (Unknown, Verified 03/27/23 13:04) UNKNOWN, itch, itching baclofen Allergy (Verified 03/27/23 13:04) twitching, falling down HPI OV - Left Hip Pain HPI Details Justa is a 62 year old Diabetic woman who presents with complaints of worsening left hip pain. She says her sister on 03/06/23, which has been difficult for her. She was last seen on 02/28/23 and was referred back to Pain Management. She has pain with daily activity, which she says is constant. She says this has been present for ~2 months now and finds no relief from her pain. She says her pain occurs primarily in her thigh as well as an ache, when she walks. She walks using a walker and denies any prior treatment for her left hip. She says she has been using a walker for the last year or so . She says she has tried hip joint injections for her right hip, which didn't help at all. She is on Suboxone and Gabapentin for pain control. She has a hx of chronic pain syndrome, postlaminectomy syndrome, and follows with pain management for lumbar injections, which are not helpful, and is scheduled to have an intrathecal pain pump implanted on 03/22/23. [facility] Medical History Hair thinning Prolapse of female pelvic organs Bilateral finger arthralgia Coccyx pain Diabetes mellitus with diabetic neuropathy, without long-term current use of insulin Pain or burning when swallowing Heartburn Hepatomegaly Osteoarthritis, hip, bilateral Bilateral hip pain Lumbar spondylosis Bilateral groin pain Depressive 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 History of pneumonia Vitamin B12 deficiency Vitamin D deficiency Insomnia ADHD Community acquired bilateral lower lobe pneumonia Injury of left heel Cough Cigarette smoker motivated to quit Dysuria Left shoulder pain Dyslipidemia Low back pain Lumbar degenerative disc disease Mixed incontinence urge and stress TEA on CPAP Opiate addiction Depression COPD (chronic obstructive pulmonary disease) Surgical History H/O neck surgery Status post sleeve gastrectomy History of lumbar spinal fusion H/O colonoscopy Hx of cholecystectomy History of partial hysterectomy H/O tubal ligation History of lumbar fusion Family History Father Aneurysm Other No family history of cancer Social History Household Members: Children Household Members Other:: daughter Housing: House Are you a primary neonatal intensive care unit nurse to a significant other at home: No Do you presently have visiting nurse or other home services: No Alcohol intake: never Comment: NOT INDICATED Patient Tobacco Use Status: Current everyday Tobacco user Tobacco use type: Cigarette Cigarettes Per Day: 10 e-Cigarette/Vaping Use: Currently Using Second Hand Smoke Exposure: Yes service: No Current occupational status: unemployed Cognitive needs: Yes (walker) Hearing needs: No Vision needs: Yes (glasses) Review of Systems Const All systems reviewed & are unremarkable except as noted in HPI and below Physical Exam Vital Signs: BMI result Body Mass Index 28.0 Const General: no acute distress, alert and awake Orientation/consciousness: patient oriented x3 HEENT Head: Yes normocephalic and Yes atraumatic Eyes EOM: EOMs intact bilaterally Resp Effort & Inspection: normal respiratory effort and able to speak in complete sentences Cardio Jugular venous distension: no JVD Skin General skin exam: turgor normal Rashes: no rashes Neuro General: patient oriented x3 Extrem Other: Left Hip: Very mild pain with FADIR Stooped gait with limited hip flexion bilaterally Psych Appearance: grossly normal Affect: normal affect Attitude: cooperative Assessment & Plan Assessment & Plan (1) Osteoarthritis of left hip: Code(s): M16.12 - Unilateral primary osteoarthritis, left hip Plan: This is a 62 year old woman with left hip OA, and ~2 months of pain in her thigh. She has pain with daily activity, worse with ambulation, and no relieving factors. She denies any prior treatment and ambulates with an assistive walker. She currently follows with Pain Management for multiple pain generators and is scheduled to have an intrathecal pain pump implanted on 03/22/23. She is currently on Suboxone BID. I discussed her diagnosis and treatment options. I recommend NSAIDs and she follow with Pain Management for treatment. (2) Chronic pain syndrome: Code(s): G89.4 - Chronic pain syndrome (3) Postlaminectomy syndrome: Code(s): M96.1 - Postlaminectomy syndrome, not elsewhere classified (4) Diabetes mellitus with diabetic neuropathy, without long-term current use of insulin: Code(s): E11.40 - Type 2 diabetes mellitus with diabetic neuropathy, unspecified Plan: Her most recent HgA1c was 5.3% on 02/21/23. (5) Osteoarthritis of right hip: Code(s): M16.11 - Unilateral primary osteoarthritis, right hip Plan: No relief from hip arthrogram in the past. Plan Scribed for Emanuel Kunz MD by Jose Antonio Servin, bilingual medical receptionist, on 03/08/23 at 12:25 PM, EST. Coding Level of Care Code Est Pt Level 4 (25181) Diagnoses Osteoarthritis of left hip M16.12 Chronic pain syndrome G89.4 Postlaminectomy syndrome M96.1 Diabetes mellitus with diabetic neuropathy, without long-term current use of insulin E11.40 Osteoarthritis of right hip M16.11
== END 2023-03-08 13:17 | disposition home or self-care (01) ==
PROVIDERS: PCP Internal Medicine; Visit Provider Orthopaedic Surgery
DX: M16.0 Bilateral primary osteoarthritis of hip (principal); G89.4 Chronic pain syndrome; M96.1 Postlaminectomy syndrome, not elsewhere classified; E11.40 Type 2 diabetes mellitus with diabetic neuropathy, unspecified
CPT/HCPCS: 99214

== ENCOUNTER → 2023-03-08 12:06 | Outpatient (BNVA) | payer MEDICARE, MEDICAID, SELFPAY | PROVIDERS: PCP Internal Medicine; Visit Provider Orthopaedic Surgery | DX: M16.12 Unilateral primary osteoarthritis, left hip (principal); M16.11 Unilateral primary osteoarthritis, right hip; M96.1 Postlaminectomy syndrome, not elsewhere classified; E11.40 Type 2 diabetes mellitus with diabetic neuropathy, unspecified; G89.4 Chronic pain syndrome | CPT/HCPCS: 99212 ==

== ENCOUNTER 2023-03-20 10:47 | Outpatient (REF) | payer MEDICARE, MEDICAID, SELFPAY ==
[2023-03-20 10:58] LABS: MANUAL DIFF FLAG NO
[2023-03-20 11:48] LABS: Basophils Percent Auto 0.4 % (0-2); Eosinophils Percent Auto 0.4 % (0-4); Hematocrit 43.7 % (37.0-47.0); Hemoglobin 13.8 g/dl (12.0-16.0); Imm Gran Abs Auto 0.03 X10*3/uL (0.00-0.03); Imm Gran Pct Auto 0.3 % (0.0-0.4); Lymphocytes Absolute Auto 3.3 X10*3/uL (1.2-4.9); Mean Corpuscular HGB Conc 31.6 g/dl (31.0-35.0); Mean Corpuscular Hemoglobin 29.7 pg (27.0-33.0); Monocytes Absolute Auto 0.7 X10*3/uL (0.1-1.2); Monocytes Percent Auto 7.5 % (2-11); Neutrophils Absolute Auto 5.8 x10*3/uL (2.0-8.3); Neutrophils Percent Auto 58.4 % (45-73); Platelet Count 191 X10*3/uL (160-400); Red Blood Count 4.65 X10*6/uL (4.20-5.50); Red Cell Distribution Width 13.2 % (11.0-16.0); White Blood Count 9.9 X10*3/uL (4.8-10.8)
== END 2023-03-20 10:48 | disposition home or self-care (01) ==
LOC: HO.LAB 10:47
PROVIDERS: PCP Internal Medicine; Visit Provider Anesthesiology
DX: D69.6 Thrombocytopenia, unspecified (principal)
CPT/HCPCS: 36415; 85025

== ENCOUNTER 2023-03-22 10:52 | Day surgery (SDC) | payer MEDICARE, MEDICAID, SELFPAY ==
[2023-03-21 09:25] VITALS: BMI 27.1
--- NOTE | 2023-03-21 09:50 | P.CONAN_ITS ---
Documented by User: Ana Watkins NP 03/21/23 09:51 HPI - Anesthesia Eval Consult details Narrative: 62yo F for Intrathecal Drug Delivery Pain Pump Implant Suboxone daily PMFSH Active Problems Active Problems: All Active Problems (Updated 02/28/23 @ 15:07 by Jose Antonio Servin) Osteoarthritis of left hip (Acute) Hair thinning (Acute) Chronic pain syndrome (Acute) Prolapse of female pelvic organs (Acute) Postlaminectomy syndrome (Acute) Urinary incontinence (Acute) Low back pain (Acute) Bilateral finger arthralgia (Acute) Overweight (Acute) Thrombocytopenia (Acute) Dyslipidemia (Acute) Thrombocytopenia (Acute) Diabetes mellitus with diabetic neuropathy, without long-term current use of insulin (Acute) Osteoarthritis of right hip (Acute) Status post sleeve gastrectomy (Acute) Steatosis, liver (Acute) COPD (chronic obstructive pulmonary disease) (Acute) ADHD (Acute) GERD (gastroesophageal reflux disease) (Acute) Insomnia (Acute) Past Medical History Medical History Hair thinning Prolapse of female pelvic organs Bilateral finger arthralgia Coccyx pain Diabetes mellitus with diabetic neuropathy, without long-term current use of insulin Pain or burning when swallowing Heartburn Hepatomegaly Osteoarthritis, hip, bilateral Bilateral hip pain Lumbar spondylosis Bilateral groin pain Depressive 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 History of pneumonia Vitamin B12 deficiency Vitamin D deficiency Insomnia ADHD Community acquired bilateral lower lobe pneumonia Injury of left heel Cough Cigarette smoker motivated to quit Dysuria Left shoulder pain Dyslipidemia Low back pain Lumbar degenerative disc disease Mixed incontinence urge and stress TEA on CPAP Opiate addiction Depression COPD (chronic obstructive pulmonary disease) Family History Family History Father Aneurysm Other No family history of cancer Family history of problems with anesthesia: No Surgical History Surgical History H/O neck surgery Status post sleeve gastrectomy History of lumbar spinal fusion H/O colonoscopy Hx of cholecystectomy History of partial hysterectomy H/O tubal ligation History of lumbar fusion History of Problems with Anesthesia: No Social History Social History Household Members: Children Household Members Other:: daughter Housing: House Are you a primary medicare contact specialist to a significant other at home: No Do you presently have visiting nurse or other home services: No Alcohol intake: never Patient Tobacco Use Status: Current everyday Tobacco user Tobacco use type: Cigarette Cigarettes Per Day: 10 e-Cigarette/Vaping Use: Currently Using Second Hand Smoke Exposure: Yes Are you DNR?: No Advance Directives: No Advance Directives Information Provided: Yes service: No Current occupational status: unemployed Cognitive needs: Yes (walker) Hearing needs: No Vision needs: Yes (glasses) Meds Allergies Allergy/AdvReac Type Severity Reaction Status Date / Time bupropion [From Wellbutrin] Allergy Intermediate Itching Verified 03/22/23 11:06 influenza virus vaccine, Allergy Unknown RASH Verified 03/22/23 11:06 specific [FLU VACCINE] latex Allergy Unknown Rash Verified 03/22/23 11:06 Sulfa (Sulfonamide Allergy Unknown UNKNOWN, Verified 03/22/23 11:06 Antibiotics) itch, itching baclofen Allergy twitching, Verified 03/22/23 11:06 falling down Home Medications Medication Instructions Recorded Confirmed Last Taken Type buprenorphine 8 mg-naloxone 2 mg 1 strip sublingual BID 09/18/21 03/22/23 03/22/23 08:30 History sublingual film dextroamphetamine-amphetamine 30 30 mg PO BID@0900,1300 09/18/21 03/22/23 03/22/23 08:30 History mg tablet risperidone 2 mg tablet (Risperdal) 2 mg PO BEDTIME 09/18/21 03/22/23 Unknown History trazodone 100 mg tablet 3 tab PO BEDTIME 03/05/22 03/22/23 Unknown History sertraline 100 mg tablet 100 mg PO QAM 07/31/22 03/22/23 03/22/23 08:30 History divalproex 500 mg tablet,extended 1,500 mg PO QPM 08/13/22 03/22/23 Unknown History release 24 hr Exam Height,Weight and Vital Signs: Height 5 ft 4 in Weight 71.668 kg Pertinent Lab Results Pertinent Lab Results: Laboratory Tests 02/21/23 03/20/23 09:10 10:57 WBC 9.9 Hgb 13.8 Hct 43.7 Plt Count 191 D Sodium 143 Potassium 4.0 Chloride 103 Carbon Dioxide 35 H BUN 16 Creatinine 0.75 Assessment and Plan Assessment Anesthesia Assessment: Chart Reviewed Final Anesthetic Review Family History of Problems with Anesthesia: No History of Problems with Anesthesia: No Documented by User: Genesis Alfaro MD 03/22/23 11:53 PMFSH Past Medical History Medical History Hair thinning Prolapse of female pelvic organs Bilateral finger arthralgia Coccyx pain Diabetes mellitus with diabetic neuropathy, without long-term current use of insulin Pain or burning when swallowing Heartburn Hepatomegaly Osteoarthritis, hip, bilateral Bilateral hip pain Lumbar spondylosis Bilateral groin pain Depressive 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 History of pneumonia Vitamin B12 deficiency Vitamin D deficiency Insomnia ADHD Community acquired bilateral lower lobe pneumonia Injury of left heel Cough Cigarette smoker motivated to quit Dysuria Left shoulder pain Dyslipidemia Low back pain Lumbar degenerative disc disease Mixed incontinence urge and stress TEA on CPAP Opiate addiction Depression COPD (chronic obstructive pulmonary disease) Family History Family History Father Aneurysm Other No family history of cancer Surgical History Surgical History H/O neck surgery Status post sleeve gastrectomy History of lumbar spinal fusion H/O colonoscopy Hx of cholecystectomy History of partial hysterectomy H/O tubal ligation History of lumbar fusion Social History Social History Household Members: Children Household Members Other:: daughter Housing: House Are you a primary medicare contact specialist to a significant other at home: No Do you presently have visiting nurse or other home services: No Alcohol intake: never Patient Tobacco Use Status: Current everyday Tobacco user Tobacco use type: Cigarette Cigarettes Per Day: 10 e-Cigarette/Vaping Use: Currently Using Second Hand Smoke Exposure: Yes Are you DNR?: No Advance Directives: No Advance Directives Information Provided: Yes service: No Current occupational status: unemployed Cognitive needs: Yes (walker) Hearing needs: No Vision needs: Yes (glasses) Meds Allergies Allergy/AdvReac Type Severity Reaction Status Date / Time bupropion [From Wellbutrin] Allergy Intermediate Itching Verified 03/22/23 11:06 influenza virus vaccine, Allergy Unknown RASH Verified 03/22/23 11:06 specific [FLU VACCINE] latex Allergy Unknown Rash Verified 03/22/23 11:06 Sulfa (Sulfonamide Allergy Unknown UNKNOWN, Verified 03/22/23 11:06 Antibiotics) itch, itching baclofen Allergy twitching, Verified 03/22/23 11:06 falling down Home Medications Medication Instructions Recorded Confirmed Last Taken Type buprenorphine 8 mg-naloxone 2 mg 1 strip sublingual BID 09/18/21 03/22/23 03/22/23 08:30 History sublingual film dextroamphetamine-amphetamine 30 30 mg PO BID@0900,1300 09/18/21 03/22/23 03/22/23 08:30 History mg tablet risperidone 2 mg tablet (Risperdal) 2 mg PO BEDTIME 09/18/21 03/22/23 Unknown History trazodone 100 mg tablet 3 tab PO BEDTIME 03/05/22 03/22/23 Unknown History sertraline 100 mg tablet 100 mg PO QAM 07/31/22 03/22/23 03/22/23 08:30 History divalproex 500 mg tablet,extended 1,500 mg PO QPM 08/13/22 03/22/23 Unknown History release 24 hr Exam Airway Mallampati Class: III TM Dist: >3cm Neck ROM: Full Assessment and Plan Assessment Anesthesia Assessment: Anesthesia Plan Discussed Final Anesthetic Review NPO: Yes ASA Class: III Final Preanesthetic Review: No Changes in Pt Med Stat and Consent Obtained/Reviewed Patient Risk: Intermediate Procedure Risk: Low Anesthetic Plan Anesthetic Plan: GA Disposition: Standard PACU
[2023-03-22] VITALS (9 sets, daily range): BP systolic 105–150; BP diastolic 56–91; PULSE 71–97; RESP 12–16; TEMP 36.3–36.9; O2SAT 93–100; BMI 29.0
--- NOTE | ~2023-03-22 | FL_ITS ---
EXAMINATION: XR FLUOROSCOPY WITH IMAGES CLINICAL INFORMATION: Intrathecal drug delivery pain pump implant. COMPARISON: None available. TECHNIQUE: Fluoroscopy Supervised By: Dr. Ludin De. Fluoroscopy Time: 0.7 minutes. Cumulative Dose: 31.3 mGy. DAP: 5.41 Gycm2. Images: 2. FINDINGS: Images demonstrate catheter in the lower thoracic and upper lumbar spinal canal. Postsurgical changes to the lower lumbar spine FL/FL guidance in OR IMPRESSION: Fluoroscopy guidance for pain management procedure
[2023-03-22] MEDS: Lactated Ringers 1,000 ML 100 ML IVCONT (11:41)
--- NOTE | 2023-03-22 12:20 | MHC.SHP ---
Pre-Procedural Eval Section A Date of Service: 03/22/23 The patient is an INPATIENT: No Changes since office visit: Yes Patient answered all questions The History & Physical has been completed within 30 days and I have reviewed it.: No Section B Chief Complaint: Postlaminectomy syndrome, not elsewhere classified Details of Present Illness: as above Relevant Family History (Specify if Yes): No Relevant Social History: None Present Medications: see Short Stay Collaborative assessment Medical History: Significant History ( opioid use disorder) History of Previous Operations: No relevant previous surgery ( postlaminectomy syndrome) Allergies: Allergies Allergy/AdvReac Type Severity Reaction Status Date / Time bupropion [From Wellbutrin] Allergy Intermediate Itching Verified 03/22/23 11:06 influenza virus vaccine, Allergy Unknown RASH Verified 03/22/23 11:06 specific [FLU VACCINE] latex Allergy Unknown Rash Verified 03/22/23 11:06 Sulfa (Sulfonamide Allergy Unknown UNKNOWN, Verified 03/22/23 11:06 Antibiotics) itch, itching baclofen Allergy twitching, Verified 03/22/23 11:06 falling down Review of Systems Sugical H&P ROS: Negative: Respiratory, Neurological, Hem-Onc, Allergic/Immunologic, Genitourinary, Integumentary, Endocrine and Eyes/Ears/Nose/Throat and Yes, Specify: Constitution ( obesity), Cardiovascular ( COPD), Psychiatric ( opioid use disorder, insomnia), Gastrointestinal ( GERD) and Musculoskeletal ( postlaminectomy syndrome) Exam Surgical H&P Exam: Normal: HEENT, Normal: Heart, Normal: Lungs, Normal: Extremities, Normal: Skin and Normal: Neurological and Significant Findings: Abdomen ( enlarged) Plan Diagnosis/Plan: Unchanged I have reviewed the history and physical and performed a pertinent physical examination on my patient. No changes have occurred unless specified. Time Spent With Patient Time: Total time managing care of this patient today __10_ minutes.
--- NOTE | 2023-03-22 15:17 | W.PM.OPN ---
Operative Note Operative Note Date of Service: 03/22/23 Narrative: Implantation of intrathecal drug delivery system pain pump [employer]. After obtaining informed consent and explaining to the patient risks, benefits and alternatives to treat her pain, the patient was brought up to the operating room where she was positioned supine on the stretcher..? [place] [employer] monitors were applied and General anesthesia with LMA was initiated. The patient received antibiotic cefazolin 2 g 30 minutes before incision. Time-out was performed delineating correct site and side of the procedure, name and date of of the patient, risk of fire, need for antibiotic prophylaxis risk of DVT and need for DVT prophylaxis. ? After that the patient?s entire back? and upper buttocks were prepped with Chloraprep and draped with full body drape including ioban film. Sterilely drape C-arm was brought over the OR field and square pictures of the L1, L2, L3 vertebrae were demonstrated on the screen. hardware at L4-5 and inter discal spacers at L5-S1 were noted on the screen. the entrance point? for the catheter was chosen as the L2-L3 interspace. In the strict midline fashion 8.5 cm vertical skin incision was made with #10 scalpel. The incision was widened with the Weitlaner retractor and deepened with electrocautery. Thorough hemostasis was obtained using electrocautery. The prevertebral fascia was freed from overlaying tissues. After that 100 mm introducer spinal 16 g needle was Inserted under x-ray guidance in the projection of the right L3 pedicle on AP view. The needle advanced to word [id number] under the x-ray guidance with intemittent A-P? and lateral pictures toward the spinal canal. When on the lateral view the needle entered the center of the spinal canal and on the AP view the tip of the needle was position in the strict midline location the stylet was removed and the clear flow of the CSF was obtain through the needle hub. Intrathecal Ascenda catheter was inserted through the needle and advanced under the x-ray guidance toward the T9 mid body vertebral body projection. The stylet was removed from the catheter and the flow of CSF fluid slightly bloody tinged but then turning into the straw color and clear was observed coming from the catheter.? 2. Pursestring sutures were applied surrounding? the a needle and the were tied.? After that the needle was withdrawn with care taken to keep the catheter in place.? Anchoring device was dislodged on the catheter and advanced until it met prevertebral fascia.? It was engaged on the body of the catheter.? Two anchoring Tycron sutures were used to suture left wing of the anchor to prevertebral fascia and 1 anchoring suture was used to stitch in the right wing of anchoring device to prevertebral fascia. ?After that the thorough irrigation of the wound was performed and wound was packed with vancomycin soaked 4 x 4. Attention then was concentrated on the patient's left upper buttock.Sterilely draped C-arm was brought over the operative field again and position of the patient's left iliac crest was demonstrated on the screen.? 2 cm below the projection of the? iliac crest? to the skin of the local anesthetic lidocaine plus Ropivacaine 1-1 was injected in the linear oblique fashion.? After that 9.5 cm incision was performed in patient's? left upper buttock alongside the injected line. ? Thorough hemostasis was obtained using cautery device.? After that the wound was widened and made 3cm deep .? The wound was extended medially and laterally as well as caudally and cranially to form the space to accommodate the body of the pump.? Thorough hemostasis was performed.? The wound was irrigated with vancomycin containing normal saline and then tunneling device was used to connect both wounds and dislodged the intrathecal catheter into the side wound.? The catheter was trimmed appropriately after that and sutureless connection device was mounted on the catheter.? After that sutureless connection device was connected to the pump.? Aspiration of the side port of the pump revealed clear straw-colored flow of CSF.? Three anchoring 1-0 Tycron sutures were applied in most superior lateral most superior medial and the most inferior lateral corner of the wound.? After that the sutures were connected to the brackets on the body of the pump, intrathecal catheter was gathered behind the body of the pump and pump was dislodged into the wound.? After that the anchoring sutures were tied.? After that noncoring needle was used again to reach side port of the pump in clear flow of CSF 0.5 mL was demonstrated in the syringe connected to the noncoring needle. ? Thorough irrigation was performed again in both wounds.? Thorough hemostasis was verified.? 0 polisorb sutures were used to close both wounds, 2-0 suture of the same nature were used to approximate the skin.? [place] were applied to the skin line and Bacitracin ointment was applied to the staple lines.? Sterile dressing with sterile 4x4s was performed, a fixed to the skin with Medipore tape, abdominal binder was applied.? Upon completion of the procedure patient was awaken , extubated and taken outside of the operating room to recovery room where she recovered uneventfully.?
--- NOTE | 2023-03-22 15:22 | PM.OP ---
Brief Operative Note Date of Service: 03/22/23 Pre-op diagnosis: postlaminectomy syndrome Post-op diagnosis: same Procedure: implantation of [employer] intrathecal drug delivery system pain pump Implants: SynchroMed 2 pain pump and ascenda intrathecal catheter Surgeon: Ludin De MD Was an Funeral Car Chauffeur used for this Procedure?: No Estimated blood loss (mL): 20 Condition: stable Disposition: PACU
[2023-03-22] MEDS: fentaNYL citrate/PF 100 MCG/2 ML VIAL 50 MCG IVPUSH (16:25)
[2023-03-22] MEDS: oxyCODONE HCl Immed Release 5 MG TABLET PO (16:26)
== END 2023-03-22 17:02 | disposition home or self-care (01) ==
PROVIDERS: PCP Internal Medicine; Visit Provider Anesthesiology
PROC: (CPT 62350; principal; 2023-03-22 12:20)
DX: M96.1 Postlaminectomy syndrome, not elsewhere classified (principal); M54.50 Low back pain, unspecified; G89.4 Chronic pain syndrome; M53.3 Sacrococcygeal disorders, not elsewhere classified; M51.36 Other intervertebral disc degeneration, lumbar region; M47.816 Spondylosis without myelopathy or radiculopathy, lumbar region; M54.16 Radiculopathy, lumbar region; M25.551 Pain in right hip; M16.11 Unilateral primary osteoarthritis, right hip; G47.33 Obstructive sleep apnea (adult) (pediatric); J44.9 Chronic obstructive pulmonary disease, unspecified; F11.20 Opioid dependence, uncomplicated; E11.40 Type 2 diabetes mellitus with diabetic neuropathy, unspecified; Z79.84 Long term (current) use of oral hypoglycemic drugs; D69.6 Thrombocytopenia, unspecified; Z98.1 Arthrodesis status; Z79.899 Other long term (current) drug therapy; Z99.89 Dependence on other enabling machines and devices; Z88.8 Allergy status to other drugs, medicaments and biological substances; Z88.7 Allergy status to serum and vaccine; Z98.84 Bariatric surgery status; Z98.890 Other specified postprocedural states; F17.210 Nicotine dependence, cigarettes, uncomplicated
CPT/HCPCS: 62350; 62362; C1755; C1772; J0665; J0690; J1100; J2250; J2371; J2405; J2704; J2795; J3010; J3370

== ENCOUNTER → 2023-03-22 10:52 | Outpatient (BNV) | payer OTHER, MEDICARE, MEDICAID, SELFPAY | PROVIDERS: PCP Internal Medicine; Visit Provider Anesthesiology | DX: M96.1 Postlaminectomy syndrome, not elsewhere classified (principal) | CPT/HCPCS: 62362 ==

== ENCOUNTER 2023-03-27 12:56 | Outpatient (AMB) | payer MEDICARE, MEDICAID, SELFPAY ==
[2023-03-27 13:03] VITALS: BP 120/57; PULSE 81; RESP 12; O2SAT 97; BMI 29.2
--- NOTE | 2023-03-27 13:03 | MHC.OFFVIS ---
Intake Vital Signs 03/27/23 13:03 Height 5 ft 4 in Weight 170 lb BMI 29.2 BP 120/57 L Blood Pressure Location Rt brachial Position Sitting Respiration 12 Pulse 81 Pulse Source Pulse Oximeter Pulse Oximetry (%) 97 Oxygen Delivery Method Room Air Intake Visit Reasons: S/p ITDD Implant 03/22/23/Confirmed Allergies bupropion [From Wellbutrin] Allergy (Intermediate, Verified 03/27/23 13:04) Itching influenza virus vaccine, specific [FLU VACCINE] Allergy (Unknown, Verified 03/27/23 13:04) RASH latex Allergy (Unknown, Verified 03/27/23 13:04) Rash Sulfa (Sulfonamide Antibiotics) Allergy (Unknown, Verified 03/27/23 13:04) UNKNOWN, itch, itching baclofen Allergy (Verified 03/27/23 13:04) twitching, falling down Medication List - Last Reconciled 03/27/23 by Opal Kingsley LPN acetaminophen ER (Arthritis Pain Relief (acetaminophen) ER) 650 mg PO Q8H PRN albuterol sulfate 2.5 mg (3 mL) inhalation Q6H PRN albuterol sulfate 90 mcg/actuation (Ventolin HFA) 2 puffs PO QID PRN buprenorphine-naloxone 8-2 mg 1 strip sublingual BID clotrimazole 1% 1 appl topical BID dextroamphetamine-amphetamine 30 mg 30 mg PO BID@0900,1300 diclofenac sodium 1% 2 grams topical QID PRN divalproex ER 1,500 mg PO QPM gabapentin 800 mg PO TID 30 days linaclotide (Linzess) 290 mcg PO QAM pantoprazole 40 mg PO DAILY risperidone (Risperdal) 2 mg PO BEDTIME sertraline 100 mg PO QAM trazodone 3 tabs PO BEDTIME HPI HPI Comments History of Present Illness Details Justa is here today for the follow-up after the implantation of intrathecal drug delivery system pain pump on 03/22/2023. She reported that the pain postoperatively is very severe. She reports that Dilaudid does not help her pain. The dressing was removed. The wounds are are washed with ChloraPrep. The incisions are clean, no swelling, no redness, no local temperature no pathological discharge. The wounds were covered with bacitracin dressing and Tegaderm applied to the skin. Most likely her increased pain sensation secondary to hyperalgesia. I explained to the patient that because of her Suboxone she receives on regular basis very little she would have help from the opioid medications. She insists on prescribing her Percocet instead of hydromorphone which was prescribed to her after surgery. I do not mind to prescribe her moderate doses of Percocet if she feels that this is more helpful for postoperative pain. Staple removals will be done in 1 week. Prior: results of the trial of intrathecal drug delivery system pain pump. She reported 2 days of 50% pain reduction. She reported that her activities of daily living improved, her mobility remain the same mostly on the account of right hip pain. She had significant right hip arthritis. She received intra-articular hip injections in the past with no result. She requests me to send her for orthopedic surgery consult in relation to THR on the left. As of her pain pump she would like me to schedule her for implantation of intrathecal drug delivery system pain pump. Risks and benefits were carefully explained to the patient. She does not want to continue trialing. She requests me to prescribe her motorized scooter to improve her mobility. I will issue prescription to her on paper. She will bring it to [facility]. She is suffering from postlaminectomy syndrome. She has pain in the lower back with minimal radiation bilaterally. She reports that she had 4 surgeries on her lumbar spine on her x-ray of the lumbar spine there is intradiscal hardware at L5-S1 interspace as well as L4-5 interspace and there is also transpedicular screws and rods fusing L4-5 vertebra as. I send her to MRI of the lumbar spine results of which dictated as below. She has multiple changes in the MRI specially above the level of her fusion. She has reversal of spinal lordosis. She has kissing osteophytes of the L1 through L3 and into L4 lumbar vertebra as. Those are most seen on the x-ray which was done for her as well. She has Modic type 1 changes in upper lumbar vertebras. She has minimal facet arthritis and ligamentum flavum thickening. There is no spinal canal or foraminal stenosis on any levels. Therefore I think that this patient is suffering from postlaminectomy syndrome. I would like to consider neuromodulation for her including pain pump and spinal cord stimulator. She past psych evaluation. She has negative about spinal cord stimulation and insisted on intrathecal drug delivery system pain pump. Also there is significant Modic changes which could be addressed with intracept procedure. All this options were again given to the patient. She would like to proceed with bupivacaine pain pump. The patient after consideration decided that she wants to go for the pain pump. She adamantly refused to try spinal cord stimulator. She said that she had spinal cord stimulator in the past and it did not work for her. I offered her also intrasept procedure but she adamantly refused to go for intracept as well. She is on Suboxone for OUD. Risks and benefits of the procedure were explained today to the patient. The patient will be scheduled for trial. [facility] Medical History Hair thinning Prolapse of female pelvic organs Bilateral finger arthralgia Coccyx pain Diabetes mellitus with diabetic neuropathy, without long-term current use of insulin Pain or burning when swallowing Heartburn Hepatomegaly Osteoarthritis, hip, bilateral Bilateral hip pain Lumbar spondylosis Bilateral groin pain Depressive 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 History of pneumonia Vitamin B12 deficiency Vitamin D deficiency Insomnia ADHD Community acquired bilateral lower lobe pneumonia Injury of left heel Cough Cigarette smoker motivated to quit Dysuria Left shoulder pain Dyslipidemia Low back pain Lumbar degenerative disc disease Mixed incontinence urge and stress TEA on CPAP Opiate addiction Depression COPD (chronic obstructive pulmonary disease) Surgical History H/O neck surgery Status post sleeve gastrectomy History of lumbar spinal fusion H/O colonoscopy Hx of cholecystectomy History of partial hysterectomy H/O tubal ligation History of lumbar fusion Family History Father Aneurysm Other No family history of cancer Social History Household Members: Children Household Members Other:: daughter Housing: House Are you a primary home health care respiratory therapist to a significant other at home: No Do you presently have visiting nurse or other home services: No Alcohol intake: never Comment: NOT INDICATED Patient Tobacco Use Status: Current everyday Tobacco user Tobacco use type: Cigarette Cigarettes Per Day: 10 e-Cigarette/Vaping Use: Currently Using Second Hand Smoke Exposure: Yes service: No Current occupational status: unemployed Cognitive needs: Yes (walker) Hearing needs: No Vision needs: Yes (glasses) Review of Systems Const All systems reviewed & are unremarkable except as noted in HPI and below ENT Reports Normal hearing present Neuro Reports Normal hearing present, Denies confusion and Denies Sensory deficit (Neuro) Psych Denies confusion Physical Exam Vital Signs: Last Vital Signs Pulse 81 03/27/23 13:03 Resp 12 03/27/23 13:03 BP 120/57 L 03/27/23 13:03 Pulse Ox 97 03/27/23 13:03 Oxygen Delivery Method Room Air 03/27/23 13:03 BMI result Body Mass Index 29.2 Const General: cooperative, alert, awake, in distress (due to pain) mild and moderate and anxious; No confusion Nutritional Appearance: obese morbidly obese Orientation/consciousness: patient oriented x3 and No confusion Limitations: ambulation with walker HEENT Head: Yes normal to inspection, Yes normocephalic and No occipital foramen tenderness Ears: hearing grossly normal bilaterally and external ears normal Face and sinus: Yes normal facial exam and Yes face symmetric Eyes General: appearance normal, both eyes and all related structures Visual Pandey: normal visual pandey by confrontation Pupils: Equal, round and reactive pupils present EOM: EOMs intact bilaterally Neck Neck: Yes normal visual inspection, Yes full ROM, Yes no lymphadenopathy, Yes supple, No anterior neck swelling and Yes no JVD Chest Chest palpation & inspection: normal inspection of the chest Resp Effort & Inspection: normal respiratory effort, able to speak in complete sentences, no audible wheezes, no cough, no respiratory distress and symmetric chest movement Cardio Jugular venous distension: no JVD Bruits: no carotid bruits Peripheral pulses: radial pulses present, posterior tibial pulses present and dorsalis pedis present GI Inspection: Yes normal to inspection, No distended, Yes Abdominal panniculus present and Yes obesity Palpation (GI): Soft to palpation and nontender General: Yes no CVA tenderness Back/Spine/Pelvis Other: Limited exam due to significant back and groin pain with movements or walking, able to stand on heels and tip toes with moderate difficulty due to pain. Can flex forward up to 50-60 degrees and extend to 5-10 degrees before experiencing moderate lumbar pain. Facet loading positive bilaterally, ROM limited to pain. Demonstrates 4/5 strength of quadriceps bilaterally as well as flexion/dorsiflexion of bilateral feet against resistance. 2+ pedal pulses bilaterally. Straight leg rise with dorsiflexion positive on the left. Significant groin pain with bilateral internal and external hip rotations. Antalgic gate, ambulates slowly with walker. Lateral and medial left hip rotation causes significant groin discomfort. The patient also reports groin pain with walking Back: no CVA tenderness Cervical Spine: cervical ROM normal Thoracic/Lumbar Spine: thoracic and lumbar spine normal to inspection, Thoracic/lumbar spine scar(s), Lasegue's sign positive, pain with thoraco-lumbar ROM, paraspinal muscle tenderness, thoraco-lumbar ROM limited with forward flexion (WNL) and with lateral flexion to the left (limited by pain) and straight leg raise positive left other (at 20 degrees) Pelvis: pain with anterior-posterior compression, pain with lateral compression, buttock tenderness bilaterally and no sciatic notch tenderness Skin General skin exam: no rashes or lesions noted Neuro General: patient oriented x3, moves all extremities, Normal light touch and pain sensation, deep tendon reflexes 2+ bilaterally and No confusion Cranial nerves: Yes Equal, round and reactive pupils present and Yes Normal hearing present Cognition (Neuro): normal cognition Gait exam (Neuro): Antalgic gait present and Assistive device used Motor exam (neuro): no tremor noted and Normal motor muscle tone present throughout Sensory Exam: No Sensory deficit (Neuro) Deep tendon reflexes (DTR's): Right patellar reflex intensity grade: 1+, Left patellar reflex intensity grade: 2+, Right ankle reflex intensity grade: 1+ and Left ankle reflex intensity grade: 1+ Extrem General: Yes full ROM, Yes capillary refill normal, Yes no clubbing, cyanosis or edema and Yes no calf tenderness Psych Appearance: grossly normal Mental Status: mental status grossly normal Speech and movement: Normal speech and movement present, Pressured speech present and Psychomotor agitation in speech present Affect: normal affect and Irritable affect present Attitude: cooperative and Avoids eye contact (attititude/behavior) Thought process: Normal thought process present and Circumstantial thought process present Thought content: Normal thought content present Assessment & Plan Assessment & Plan (1) Osteoarthritis of right hip: Code(s): M16.11 - Unilateral primary osteoarthritis, right hip (2) Postlaminectomy syndrome: Code(s): M96.1 - Postlaminectomy syndrome, not elsewhere classified (3) History of lumbar spinal fusion: Code(s): Z98.1 - Arthrodesis status (4) Lumbar degenerative disc disease: Code(s): M51.36 - Other intervertebral disc degeneration, lumbar region (5) Lumbar spondylosis: Code(s): M47.816 - Spondylosis without myelopathy or radiculopathy, lumbar region (6) Lumbar radiculopathy: Code(s): M54.16 - Radiculopathy, lumbar region (7) Osteoarthritis, hip, bilateral: Code(s): M16.0 - Bilateral primary osteoarthritis of hip (8) Bilateral hip pain: Code(s): M25.551 - Pain in right hip; M25.552 - Pain in left hip (9) Low back pain: Code(s): M54.5 - Low back pain Qualifiers: Back pain laterality: bilateral Chronicity: chronic Sciatica presence: without sciatica Qualified Code(s): M54.50 - Low back pain, unspecified; G89.29 - Other chronic pain (10) Chronic pain syndrome: Code(s): G89.4 - Chronic pain syndrome Plan: (11) Thrombocytopenia: Code(s): D69.6 - Thrombocytopenia, unspecified Plan She had only 50% pain relief however it was lasting for 48 hours. This is much longer than presumable action of bupivacaine. Risks and benefits and caution were explained to the patient in regarding of the pain pump.. Implantation of the pump was performed of 03/22/2023. Dressing changed today. She insists on prescribing her Percocet. She reports that Dilaudid does not work for her. I will prescribe her short course of Percocet no more than 5 days. Dressing change in staple removals are on 04/03/2023. Adamantly refused SCS, adamantly refused intercept. Patient with chronic pain syndrome related to arthritis and degenerative changes of her lumbar spine, s/p 5 back surgeries with lumbar fusion. After MRI becomes more clear that she is suffering from postlaminectomy syndrome. No spinal canal stenosis. The vertebras above the fusion are demonstrating Modic 1 type changes which could be another pain generator for her. She reports most significant pain when she is laying in bed. Medications: New oxycodone-acetaminophen 7.5-325 mg (Percocet) Partial Fill upon patient request. 1 tab PO Q8H PRN 14 tabs 0RF postoperative pain 5 days Coding Level of Care Code Est Pt Level 3 (18518) Diagnoses Osteoarthritis of right hip M16.11 Postlaminectomy syndrome M96.1 History of lumbar spinal fusion Z98.1 Lumbar degenerative disc disease M51.36 Lumbar spondylosis M47.816 Lumbar radiculopathy M54.16 Osteoarthritis, hip, bilateral M16.0 Bilateral hip pain M25.551; M25.552 Low back pain M54.50; G89.29 Back pain laterality: bilateral Chronicity: chronic Sciatica presence: without sciatica Chronic pain syndrome G89.4 Thrombocytopenia D69.6
== END 2023-03-27 13:32 | disposition home or self-care (01) ==
PROVIDERS: PCP Internal Medicine; Visit Provider Anesthesiology
DX: M16.11 Unilateral primary osteoarthritis, right hip (principal); M96.1 Postlaminectomy syndrome, not elsewhere classified; Z98.1 Arthrodesis status; M51.36 Other intervertebral disc degeneration, lumbar region; M47.816 Spondylosis without myelopathy or radiculopathy, lumbar region; M54.16 Radiculopathy, lumbar region; M16.0 Bilateral primary osteoarthritis of hip; M25.551 Pain in right hip; M25.552 Pain in left hip; M54.50 Low back pain, unspecified; G89.29 Other chronic pain; G89.4 Chronic pain syndrome
CPT/HCPCS: 99024

== ENCOUNTER → 2023-03-27 12:56 | Outpatient (BNVA) | payer MEDICARE, MEDICAID, SELFPAY | PROVIDERS: PCP Internal Medicine; Visit Provider Anesthesiology | DX: M16.11 Unilateral primary osteoarthritis, right hip (principal); M96.1 Postlaminectomy syndrome, not elsewhere classified; M51.36 Other intervertebral disc degeneration, lumbar region; M47.816 Spondylosis without myelopathy or radiculopathy, lumbar region; M54.16 Radiculopathy, lumbar region; M16.0 Bilateral primary osteoarthritis of hip; M25.551 Pain in right hip; M25.552 Pain in left hip; M54.50 Low back pain, unspecified; G89.29 Other chronic pain; Z98.1 Arthrodesis status | CPT/HCPCS: 99212 ==

== ENCOUNTER 2023-04-03 12:52 | Outpatient (AMB) | payer MEDICARE, MEDICAID, SELFPAY ==
--- NOTE | 2023-04-03 12:53 | MHC.OFFVIS ---
Intake Vital Signs 04/03/23 13:07 Height 5 ft 4 in Weight 170 lb BMI 29.2 BP 124/60 Blood Pressure Location Lt brachial Position Sitting Respiration 16 Pulse 82 Pulse Source Pulse Oximeter Pulse Oximetry (%) 96 Oxygen Delivery Method Room Air Intake Visit Reasons: S/p ITDD *REFILL*Implant 03/22/23/lvm Allergies bupropion [From Wellbutrin] Allergy (Intermediate, Verified 04/03/23 13:08) Itching influenza virus vaccine, specific [FLU VACCINE] Allergy (Unknown, Verified 04/03/23 13:08) RASH latex Allergy (Unknown, Verified 04/03/23 13:08) Rash Sulfa (Sulfonamide Antibiotics) Allergy (Unknown, Verified 04/03/23 13:08) UNKNOWN, itch, itching baclofen Allergy (Verified 04/03/23 13:08) twitching, falling down HPI HPI Comments History of Present Illness Details Justa is here today for the follow-up after the implantation of intrathecal drug delivery system pain pump on 03/22/2023. We removed the dressing today and exposed the wounds. I worse the wounds with ChloraPrep and then removed all the haydee. There is no swelling, no redness, no pathological discharge, no or minimal tenderness on palpation. The intrathecal pump was read and refilled under ultrasound guidance. See the refill as below. She reports some pain relieve on PTM does she reports it lasts about 1 hour. We readjusted the doses today and new doses to be continuous 0.5 mg a day plus 3 doses of 2 mg on demand with each dose of the medication to be 6 hours apart with maximum of 3 doses in 24 hours. The wounds were covered with bacitracin dressing and Tegaderm applied to the skin. Prior: results of the trial of intrathecal drug delivery system pain pump. She reported 2 days of 50% pain reduction. She reported that her activities of daily living improved, her mobility remain the same mostly on the account of right hip pain. She had significant right hip arthritis. She received intra-articular hip injections in the past with no result. She requests me to send her for orthopedic surgery consult in relation to THR on the left. As of her pain pump she would like me to schedule her for implantation of intrathecal drug delivery system pain pump. Risks and benefits were carefully explained to the patient. She does not want to continue trialing. She requests me to prescribe her motorized scooter to improve her mobility. I will issue prescription to her on paper. She will bring it to [facility]. She is suffering from postlaminectomy syndrome. She has pain in the lower back with minimal radiation bilaterally. She reports that she had 4 surgeries on her lumbar spine on her x-ray of the lumbar spine there is intradiscal hardware at L5-S1 interspace as well as L4-5 interspace and there is also transpedicular screws and rods fusing L4-5 vertebra as. I send her to MRI of the lumbar spine results of which dictated as below. She has multiple changes in the MRI specially above the level of her fusion. She has reversal of spinal lordosis. She has kissing osteophytes of the L1 through L3 and into L4 lumbar vertebra as. Those are most seen on the x-ray which was done for her as well. She has Modic type 1 changes in upper lumbar vertebras. She has minimal facet arthritis and ligamentum flavum thickening. There is no spinal canal or foraminal stenosis on any levels. Therefore I think that this patient is suffering from postlaminectomy syndrome. I would like to consider neuromodulation for her including pain pump and spinal cord stimulator. She past psych evaluation. She has negative about spinal cord stimulation and insisted on intrathecal drug delivery system pain pump. Also there is significant Modic changes which could be addressed with intracept procedure. All this options were again given to the patient. She would like to proceed with bupivacaine pain pump. The patient after consideration decided that she wants to go for the pain pump. She adamantly refused to try spinal cord stimulator. She said that she had spinal cord stimulator in the past and it did not work for her. I offered her also intrasept procedure but she adamantly refused to go for intracept as well. She is on Suboxone for OUD. Risks and benefits of the procedure were explained today to the patient. The patient will be scheduled for trial. [facility] Medical History Hair thinning Prolapse of female pelvic organs Bilateral finger arthralgia Coccyx pain Diabetes mellitus with diabetic neuropathy, without long-term current use of insulin Pain or burning when swallowing Heartburn Hepatomegaly Osteoarthritis, hip, bilateral Bilateral hip pain Lumbar spondylosis Bilateral groin pain Depressive 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 History of pneumonia Vitamin B12 deficiency Vitamin D deficiency Insomnia ADHD Community acquired bilateral lower lobe pneumonia Injury of left heel Cough Cigarette smoker motivated to quit Dysuria Left shoulder pain Dyslipidemia Low back pain Lumbar degenerative disc disease Mixed incontinence urge and stress TAE on CPAP Opiate addiction Depression COPD (chronic obstructive pulmonary disease) Surgical History H/O neck surgery Status post sleeve gastrectomy History of lumbar spinal fusion H/O colonoscopy Hx of cholecystectomy History of partial hysterectomy H/O tubal ligation History of lumbar fusion Family History Father Aneurysm Other No family history of cancer Social History Household Members: Children Household Members Other:: daughter Housing: House Are you a primary caregivers homecare to a significant other at home: No Do you presently have visiting nurse or other home services: No Alcohol intake: never Comment: NOT INDICATED Patient Tobacco Use Status: Current everyday Tobacco user Tobacco use type: Cigarette Cigarettes Per Day: 10 e-Cigarette/Vaping Use: Currently Using Second Hand Smoke Exposure: Yes service: No Current occupational status: unemployed Cognitive needs: Yes (walker) Hearing needs: No Vision needs: Yes (glasses) Review of Systems Const All systems reviewed & are unremarkable except as noted in HPI and below ENT Reports Normal hearing present Neuro Reports Normal hearing present, Denies confusion and Denies Sensory deficit (Neuro) Psych Denies confusion Physical Exam Vital Signs: Last Vital Signs Pulse 82 04/03/23 13:07 Resp 16 04/03/23 13:07 BP 124/60 04/03/23 13:07 Pulse Ox 96 04/03/23 13:07 Oxygen Delivery Method Room Air 04/03/23 13:07 BMI result Body Mass Index 29.2 Const General: cooperative, alert, awake, in distress (due to pain) mild and moderate and anxious; No confusion Nutritional Appearance: obese morbidly obese Orientation/consciousness: patient oriented x3 and No confusion Limitations: ambulation with walker HEENT Head: Yes normal to inspection, Yes normocephalic and No occipital foramen tenderness Ears: hearing grossly normal bilaterally and external ears normal Face and sinus: Yes normal facial exam and Yes face symmetric Eyes General: appearance normal, both eyes and all related structures Visual Pandey: normal visual pandey by confrontation Pupils: Equal, round and reactive pupils present EOM: EOMs intact bilaterally Neck Neck: Yes normal visual inspection, Yes full ROM, Yes no lymphadenopathy, Yes supple, No anterior neck swelling and Yes no JVD Chest Chest palpation & inspection: normal inspection of the chest Resp Effort & Inspection: normal respiratory effort, able to speak in complete sentences, no audible wheezes, no cough, no respiratory distress and symmetric chest movement Cardio Jugular venous distension: no JVD Bruits: no carotid bruits Peripheral pulses: radial pulses present, posterior tibial pulses present and dorsalis pedis present GI Inspection: Yes normal to inspection, No distended, Yes Abdominal panniculus present and Yes obesity Palpation (GI): Soft to palpation and nontender General: Yes no CVA tenderness Back/Spine/Pelvis Other: Limited exam due to significant back and groin pain with movements or walking, able to stand on heels and tip toes with moderate difficulty due to pain. Can flex forward up to 50-60 degrees and extend to 5-10 degrees before experiencing moderate lumbar pain. Facet loading positive bilaterally, ROM limited to pain. Demonstrates 4/5 strength of quadriceps bilaterally as well as flexion/dorsiflexion of bilateral feet against resistance. 2+ pedal pulses bilaterally. Straight leg rise with dorsiflexion positive on the left. Significant groin pain with bilateral internal and external hip rotations. Antalgic gate, ambulates slowly with walker. Lateral and medial left hip rotation causes significant groin discomfort. The patient also reports groin pain with walking Back: no CVA tenderness Cervical Spine: cervical ROM normal Thoracic/Lumbar Spine: thoracic and lumbar spine normal to inspection, Thoracic/lumbar spine scar(s), Lasegue's sign positive, pain with thoraco-lumbar ROM, paraspinal muscle tenderness, thoraco-lumbar ROM limited with forward flexion (WNL) and with lateral flexion to the left (limited by pain) and straight leg raise positive left other (at 20 degrees) Pelvis: pain with anterior-posterior compression, pain with lateral compression, buttock tenderness bilaterally and no sciatic notch tenderness Skin General skin exam: no rashes or lesions noted Neuro General: patient oriented x3, moves all extremities, Normal light touch and pain sensation, deep tendon reflexes 2+ bilaterally and No confusion Cranial nerves: Yes Equal, round and reactive pupils present and Yes Normal hearing present Cognition (Neuro): normal cognition Gait exam (Neuro): Antalgic gait present and Assistive device used Motor exam (neuro): no tremor noted and Normal motor muscle tone present throughout Sensory Exam: No Sensory deficit (Neuro) Deep tendon reflexes (DTR's): Right patellar reflex intensity grade: 1+, Left patellar reflex intensity grade: 2+, Right ankle reflex intensity grade: 1+ and Left ankle reflex intensity grade: 1+ Extrem General: Yes full ROM, Yes capillary refill normal, Yes no clubbing, cyanosis or edema and Yes no calf tenderness Psych Appearance: grossly normal Mental Status: mental status grossly normal Speech and movement: Normal speech and movement present, Pressured speech present and Psychomotor agitation in speech present Affect: normal affect and Irritable affect present Attitude: cooperative and Avoids eye contact (attititude/behavior) Thought process: Normal thought process present and Circumstantial thought process present Thought content: Normal thought content present Assessment & Plan Assessment & Plan (1) Osteoarthritis of right hip: Code(s): M16.11 - Unilateral primary osteoarthritis, right hip (2) Postlaminectomy syndrome: Code(s): M96.1 - Postlaminectomy syndrome, not elsewhere classified (3) History of lumbar spinal fusion: Code(s): Z98.1 - Arthrodesis status (4) Lumbar degenerative disc disease: Code(s): M51.36 - Other intervertebral disc degeneration, lumbar region (5) Lumbar spondylosis: Code(s): M47.816 - Spondylosis without myelopathy or radiculopathy, lumbar region (6) Lumbar radiculopathy: Code(s): M54.16 - Radiculopathy, lumbar region (7) Osteoarthritis, hip, bilateral: Code(s): M16.0 - Bilateral primary osteoarthritis of hip (8) Bilateral hip pain: Code(s): M25.551 - Pain in right hip; M25.552 - Pain in left hip (9) Low back pain: Code(s): M54.5 - Low back pain Qualifiers: Back pain laterality: bilateral Chronicity: chronic Sciatica presence: without sciatica Qualified Code(s): M54.50 - Low back pain, unspecified; G89.29 - Other chronic pain Plan: Patient with chronic pain syndrome related to arthritis and degenerative changes of her lumbar spine, s/p 5 back surgeries with lumbar fusion. After MRI becomes more clear that she is suffering from postlaminectomy syndrome. No spinal canal stenosis. The vertebras above the fusion are demonstrating Modic 1 type changes which could be another pain generator for her. She reports most significant pain when she is laying in bed. (10) Chronic pain syndrome: Code(s): G89.4 - Chronic pain syndrome Plan: (11) Thrombocytopenia: Code(s): D69.6 - Thrombocytopenia, unspecified Plan Intrathecal pump refill. HE CHANGE OF THE MEDICATION IN her PAIN PUMP. The name and date of were verified and informed consent was obtained for the procedure. Informed consent was obtained. The pump was interrogated and the residual amount of fluid was found to be 15 mL. SHE WAS POSITIONED prone on the bed AND THE AREA OF THE INTRATHECAL PUMP WAS PREPPED WITH CHLORAPREP. The fenestrated drape was sterilely applied over the area of the pump. Sterile gloves were worn and of the aspiration system was assembled containing 2 in 22 gauge noncoring needle, the needle was connected to extension tubing which was connected to the 20 cc sterile syringe. The pain pump was palpated under the skin in the patient's right buttock area. The needle was inserted through the skin and the central plug of the pain pump and fluid was aspirated. The clear fluid was going into the syringe the total amount of the fluid was 6.0 mL .. After that a new batch? of medication was obtained which was containing bupivacaine 10 milligrams/mL. The admixture was made in 20 cc syringe prepared by [facility] compounding pharmacy. The syringe was connected to the bacterial filter, and then connected to the extension tubing. After that the medication in the syringe was slowly instilled into the pump with aspirations at 15 and 5 cc [place].? The pump was reprogrammed for the doses of bupivacaine continuous rate 0.5 milligrams/mL as well as on demand 3 times a day every 6 hours 1 dose of 2 mg given over the time of 20 minutes. A bridge bolus of 1 mg was given over the course of 41 hours. Coding Level of Care Code Est Pt Level 4 (21991) Procedure Only Diagnoses Osteoarthritis of right hip M16.11 Postlaminectomy syndrome M96.1 History of lumbar spinal fusion Z98.1 Lumbar degenerative disc disease M51.36 Lumbar spondylosis M47.816 Lumbar radiculopathy M54.16 Osteoarthritis, hip, bilateral M16.0 Bilateral hip pain M25.551; M25.552 Low back pain M54.50; G89.29 Back pain laterality: bilateral Chronicity: chronic Sciatica presence: without sciatica Chronic pain syndrome G89.4 Thrombocytopenia D69.6
[2023-04-03 13:07] VITALS: BP 124/60; PULSE 82; RESP 16; O2SAT 96; BMI 29.2
== END 2023-04-03 13:43 | disposition home or self-care (01) ==
PROVIDERS: PCP Internal Medicine; Visit Provider Anesthesiology
DX: G89.4 Chronic pain syndrome (principal); M96.1 Postlaminectomy syndrome, not elsewhere classified; Z98.1 Arthrodesis status; Z45.1 Encounter for adjustment and management of infusion pump; M51.36 Other intervertebral disc degeneration, lumbar region; M47.816 Spondylosis without myelopathy or radiculopathy, lumbar region; M54.16 Radiculopathy, lumbar region; M16.0 Bilateral primary osteoarthritis of hip
CPT/HCPCS: 62370

== ENCOUNTER → 2023-04-03 12:52 | Outpatient (BNVA) | payer MEDICARE, MEDICAID, SELFPAY | PROVIDERS: PCP Internal Medicine; Visit Provider Anesthesiology | DX: M16.11 Unilateral primary osteoarthritis, right hip (principal); M96.1 Postlaminectomy syndrome, not elsewhere classified; M51.36 Other intervertebral disc degeneration, lumbar region; M47.816 Spondylosis without myelopathy or radiculopathy, lumbar region; M54.16 Radiculopathy, lumbar region; M16.0 Bilateral primary osteoarthritis of hip; M25.551 Pain in right hip; M25.552 Pain in left hip; M54.50 Low back pain, unspecified; G89.29 Other chronic pain; D69.6 Thrombocytopenia, unspecified; Z98.1 Arthrodesis status | CPT/HCPCS: 62370 ==

== ENCOUNTER 2023-04-10 11:33 | Outpatient (AMB) | payer MEDICARE, MEDICAID, SELFPAY ==
[2023-04-10 11:58] VITALS: BP 110/68; PULSE 68; O2SAT 96; BMI 30.1
--- NOTE | 2023-04-10 11:58 | A.OFFPC_ITS ---
Vital Signs 04/10/23 11:58 Height 5 ft 4 in Weight 175 lb 4 oz BMI 30.1 BP 110/68 Blood Pressure Location Rt brachial Position Sitting Pulse 68 Pulse Source Pulse Oximeter Pulse Oximetry (%) 96 Oxygen Delivery Method Room Air Intake Visit Reasons: 3 Month follow Medications Intake Note: Pt is here to follow up for labs results pt also c/o a cough for over a month she says she is coughing all day and night she did 2 at home covid test that were neg Allergies bupropion [From Wellbutrin] Allergy (Intermediate, Verified 05/16/23 05:43) Itching influenza virus vaccine, specific [FLU VACCINE] Allergy (Unknown, Verified 05/16/23 05:43) RASH latex Allergy (Unknown, Verified 05/16/23 05:43) Rash Sulfa (Sulfonamide Antibiotics) Allergy (Unknown, Verified 05/16/23 05:43) UNKNOWN, itch, itching baclofen Allergy (Verified 05/16/23 05:43) twitching, falling down Medication List - Last Reconciled 04/10/23 by Melissa Topete MD acetaminophen ER (Arthritis Pain Relief (acetaminophen) ER) 650 mg PO Q8H PRN albuterol sulfate 2.5 mg (3 mL) inhalation Q6H PRN albuterol sulfate 90 mcg/actuation (Ventolin HFA) 2 puffs PO QID PRN buprenorphine-naloxone 8-2 mg 1 strip sublingual BID clotrimazole 1% 1 appl topical BID dextroamphetamine-amphetamine 30 mg 30 mg PO BID@0900,1300 diclofenac sodium 1% 2 grams topical QID PRN divalproex ER 1,500 mg PO QPM gabapentin 800 mg PO TID 30 days linaclotide (Linzess) 290 mcg PO QAM pantoprazole 40 mg PO DAILY risperidone (Risperdal) 2 mg PO BEDTIME sertraline 100 mg PO QAM trazodone 3 tabs PO BEDTIME Tobacco use date assessed: 04/10/23 Dental Screening Dental Screen Date: 04/10/23 Did you have a dental visit in the last 12 months?: Yes Did you have a dental problem in the last 6 months where you did not have access to dental care?: No Was dental information given to patient?: Patient has dentist HPI 3 Month follow Medications HPI Details 62-year-old lady with hyperlipidemia, im paired fasting glucose, here today for follow-up. She has been trying to follow recommended diet, but unable to exercise much due to her back pain, and joint pains. She also has been complaining of a chronic cough present now for the last several weeks, denies any accompanying shortness of breath, no chest pain, no phlegm, no accompanying chest pain reported. Continues to smoke cigarettes, down to just 10 cigarettes a day, but unwilling to quit at present time. [facility] Medical History (Updated 04/10/23 @ 12:41 by Melissa Topete MD) Impaired fasting glucose Smoker unmotivated to quit Cough present for greater than 3 weeks Hair thinning Prolapse of female pelvic organs Bilateral finger arthralgia Coccyx pain Diabetes mellitus with diabetic neuropathy, without long-term current use of insulin Pain or burning when swallowing Heartburn Hepatomegaly Osteoarthritis, hip, bilateral Bilateral hip pain Lumbar spondylosis Bilateral groin pain Depressive 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 History of pneumonia Vitamin B12 deficiency Vitamin D deficiency Insomnia ADHD Community acquired bilateral lower lobe pneumonia Injury of left heel Cough Cigarette smoker motivated to quit Dysuria Left shoulder pain Dyslipidemia Low back pain Lumbar degenerative disc disease Mixed incontinence urge and stress TEA on CPAP Opiate addiction Depression COPD (chronic obstructive pulmonary disease) Surgical History H/O neck surgery Status post sleeve gastrectomy History of lumbar spinal fusion H/O colonoscopy Hx of cholecystectomy History of partial hysterectomy H/O tubal ligation History of lumbar fusion Family History Father Aneurysm Other No family history of cancer Social History Household Members: Children Household Members Other:: daughter Housing: House Are you a primary careers adviser to a significant other at home: No Do you presently have visiting nurse or other home services: No Alcohol intake: never Comment: NOT INDICATED Patient Tobacco Use Status: Current everyday Tobacco user Tobacco use type: Cigarette Cigarettes Per Day: 10 e-Cigarette/Vaping Use: Currently Using Second Hand Smoke Exposure: Yes service: No Current occupational status: unemployed Cognitive needs: Yes (walker) Hearing needs: No Vision needs: Yes (glasses) Questionnaire Thrive Questionnaire Date Thrive assessed: 05/07/22 AMANDA-7 AMB Questionnaire AMANDA-7 Date AMANDA - 7 assessed: 05/07/22 Source: Developed by Drs. Mark Cota, Alva Ghotra, Adis Kramer and colleagues, with an educational adeel from [employer]. Review of Systems Const Denies chills and Denies fever(s) ENT Reports no additional complaints Card Denies chest pain, Denies rapid heart rate, Denies irregular heart rhythm, Denies lightheadedness, Denies palpitations and Denies dyspnea Resp Denies chest congestion, Denies cough and Denies dyspnea GI Denies abdominal pain, Denies melena, Denies change in bowel habits, Denies change in stool character, Denies heartburn and Denies fecal incontinence Denies urinary frequency, Denies genital pruritis, Denies dysuria and Denies urinary hesitancy Musc Denies abnormal gait Neuro Denies abnormal gait, Denies burning sensations, Denies lack of coordination and Denies focal weakness Endo Denies polyphagia, Denies polydipsia and Denies palpitations Physical exam (Primary Care) Vital Signs: Last Vital Signs Pulse 68 04/10/23 11:58 BP 110/68 04/10/23 11:58 Pulse Ox 96 04/10/23 11:58 Oxygen Delivery Method Room Air 04/10/23 11:58 BMI result Body Mass Index 30.1 Tobacco/Smoking Status: Tobacco use Status Tobacco use date assessed 04/10/23 04/10/23 12:05 Patient Tobacco Use Status Current everyday Tobacco 04/10/23 12:05 Tobacco use type Cigarette 04/10/23 12:05 e-Cigarette/Vaping Use Currently Using 04/10/23 12:05 Thrive Assessment: Date of Thrive Assessment Date Thrive assessed 05/07/22 04/10/23 12:05 Const Other: Alert oriented x3, no acute distress noted, ambulatory with normal gait Orientation/consciousness: patient oriented x3 HENMT Mouth: Normal oral and palatal mucosa present, tongue normal, oropharynx normal and moist mucous membranes Neck Neck: Yes full ROM, Yes no lymphadenopathy and Yes supple Resp Effort & Inspection: normal respiratory effort and able to speak in complete sentences Auscultation: clear to auscultation bilaterally Cardio Other: S1-S2 present regular rate and rhythm GI Other: Normal bowel sounds soft, nontender with no mass palpated Neuro General: patient oriented x3, tone normal, moves all extremities, Normal light touch and pain sensation, no focal motor deficits and CN's II-XI intact bilaterally Extrem General: Yes full ROM, Yes no joint enlargement and Yes no clubbing, cyanosis or edema Results Reviewed Results Reviewed: Laboratory Tests 03/20/23 10:57 WBC 9.9 Hgb 13.8 Hct 43.7 Plt Count 191 D Name: Justa Larsen Age/Sex: 62/F : 1960 Unit#: [id number] Attend Dr: Melissa Topete MD Re02/21/23 Status: DEP REF Location: [facility] Disch: SPEC : [id number] ELICIA: 02/21/23 STATUS: COMP REQ : [id number] RECD: 02/21/[address]: Melissa Topete MD COMP: 02/21/23 ENTERED: 02/21/[address]: ORDERED: Met Prof Fast, Lipid Panel Test Result Flag Reference Site Sodium 143 135-145 mmol/L Potassium 4.0 3.3-5.1 mmol/L CL 103 96-108 mmol/L CO2 35 H 22-29 mmol/L Gap 9 L 12-20 BUN 16 9-16 mg/dL Creat 0.75 0.5-1.4 mg/dL EGFR > 60 NOTE: For -Russian individuals, multiply the result by 1.210. Chronic Kidney Disease: Estimated GFR < 60 mL/min/1.73m2 Severe Kidney Disease: Estimated GFR < 15 mL/min/1.73m2 FBS 105 H 60-99 mg/dL A fasting glucose from 100-125 mg/dl is considered impaired (pre-diabetes). CA 9.5 # 8.4-10.2 mg/dL Triglyceride 111 <150 mg/dL Desirable Triglyceride: less than 150 mg/dL Borderline High Triglyceride 150-199 mg/dL High Triglyceride: 200-499 mg/dL Very High Triglyceride: greater than or equal to 5OO mg/dL Cholesterol 252 H <200 mg/dL Desirable Cholesterol: less than 200 mg/dL Borderline High Cholesterol: 200-239 mg/dL High Cholesterol: greater than 239 mg/dL LDL Calculated 173 H <100 mg/dL Desirable LDL: less than 100 mg/dL Near Optimal/Above Optimal LDL: 110-129 mg/dL Borderline High LDL: 130-159 mg/dL High LDL: 160-189 mg/dL Very High LDL: greater than or equal to 190 mg/dL HDL 57 >40 mg/dL Desirable HDL: greater than 40 mg/dL Note: This HDL assay may give artificially low results in patients with liver disease. Assessment and Plan Assessment & Plan (1) COPD (chronic obstructive pulmonary disease): Code(s): J44.9 - Chronic obstructive pulmonary disease, unspecified Plan: Strongly advised to quit smoking, patient states not ready to quit at present. pulmonary function test ordered started on Symbicort to use as directed, gargle after each use will check for COVID a, SARS and influenza (2) Dyslipidemia: Code(s): E78.5 - Hyperlipidemia, unspecified Plan: Reviewed recent fasting lipid profile with patient with elevated LDL cholesterol. Prescribed rosuvastatin 5 mg taken once daily , in addition to adherence to low-cholesterol diet and regular exercise, at least 30 minutes 3 to 4 times a week. Advised patient to make healthy food choices, eat more fruits, vegetables, whole grains, wild caught fish and low-fat dairy. Limit amount of m eat and fried or fatty food products, as well as processed foods and fast foods. Follow-up scheduled with repeat fasting lipid panel in 3 months. (3) Impaired fasting glucose: Code(s): R73.01 - Impaired fasting glucose Plan: Your fasting blood sugars elevated above 100 mg/dL. Impaired glucose metabolism O2 at risk for developing diabetes mellitus type 2, as well as heart attack and stroke later on. Lifestyle changes at just weight loss, healthy eating habits, and regular exercise are important, and can prevent the progression to diabetes Orders: Orders Lipid Panel 06/21/23 E78.5 - Hyperlipidemia, unspecified, R73.01 - Impaired fasting glucose Aspartate Amino Transferase 06/21/23 E78.5 - Hyperlipidemia, unspecified, R73.01 - Impaired fasting glucose Glucose Fasting 06/21/23 E78.5 - Hyperlipidemia, unspecified, R73.01 - Impaired fasting glucose SARS-CoV2/FLU/RSV 04/10/23 R09.89 - Other specified symptoms and signs involving the circulatory and respiratory systems PFT pulmonary function test 04/10/23 R05.8 - Other specified cough, F17.200 - Nicotine dependence, unspecified, uncomplicated Hemoglobin A1c 06/21/23 E78.5 - Hyperlipidemia, unspecified, R73.01 - Impaired fasting glucose Alanine Aminotransferase 06/21/23 E78.5 - Hyperlipidemia, unspecified, R73.01 - Impaired fasting glucose Medications: New rosuvastatin 5 mg PO DAILY 30 tabs 4RF budesonide-formoterol 160-4.5 mcg/actuation (Symbicort) 2 puffs inhalation Q12H 10.2 grams 3RF J44.9 - Chronic obstructive pulmonary disease, unspecified Coding Level of Care Code Est Pt Level 4 (26398) Diagnoses COPD (chronic obstructive pulmonary disease) J44.9 Dyslipidemia E78.5 Impaired fasting glucose R73.01
== END 2023-04-10 12:36 | disposition home or self-care (01) ==
PROVIDERS: PCP Internal Medicine; Visit Provider Internal Medicine
DX: J44.9 Chronic obstructive pulmonary disease, unspecified (principal); E78.5 Hyperlipidemia, unspecified; R73.01 Impaired fasting glucose
CPT/HCPCS: 99214

== ENCOUNTER 2023-04-10 12:26 | Outpatient (REF) | payer MEDICARE, MEDICAID, SELFPAY ==
[2023-04-10 19:34] LABS: Influenza A PCR NEGATIVE (Negative); Influenza B PCR NEGATIVE (Negative); Resp Syncy Virus RNA Qual PCR NEGATIVE (Negative); SARS COV2 PCR INHOUSE NEGATIVE (Negative)
== END 2023-04-10 12:27 | disposition home or self-care (01) ==
LOC: HO.LNP 12:26
PROVIDERS: Visit Provider Internal Medicine
DX: R09.89 Other specified symptoms and signs involving the circulatory and respiratory systems (principal); R05.8 Other specified cough; F17.200 Nicotine dependence, unspecified, uncomplicated; Z11.52 Encounter for screening for COVID-19
CPT/HCPCS: 0241U

== ENCOUNTER → 2023-05-02 10:55 | Outpatient (BNVA) | payer MEDICARE, MEDICAID, SELFPAY | PROVIDERS: PCP Internal Medicine; Visit Provider Anesthesiology | DX: M16.11 Unilateral primary osteoarthritis, right hip (principal); M96.1 Postlaminectomy syndrome, not elsewhere classified; M51.36 Other intervertebral disc degeneration, lumbar region; M47.816 Spondylosis without myelopathy or radiculopathy, lumbar region; M54.16 Radiculopathy, lumbar region; M16.0 Bilateral primary osteoarthritis of hip; M25.551 Pain in right hip; M25.552 Pain in left hip; M54.50 Low back pain, unspecified; G89.29 Other chronic pain; D69.6 Thrombocytopenia, unspecified; Z98.1 Arthrodesis status | CPT/HCPCS: 62370 ==

== ENCOUNTER 2023-05-02 10:56 | Outpatient (AMB) | payer MEDICARE, MEDICAID, SELFPAY ==
--- NOTE | 2023-05-02 11:36 | A.OFFVIS_ITS ---
Intake Vital Signs 05/02/23 11:37 Height 5 ft 4 in Weight 179 lb 6 oz BMI 30.8 BP 130/90 H Blood Pressure Location Lt brachial Position Sitting Respiration 16 Pulse 84 Pulse Source Pulse Oximeter Pulse Oximetry (%) 96 Oxygen Delivery Method Room Air Intake Visit Reasons: ITDD Refill /Lvm Intake Note: Patient comes in for intrathecal pain pump medication refill. Reports pain level 6/10. Allergies bupropion [From Wellbutrin] Allergy (Intermediate, Verified 05/02/23 11:37) Itching influenza virus vaccine, specific [FLU VACCINE] Allergy (Unknown, Verified 05/02/23 11:37) RASH latex Allergy (Unknown, Verified 05/02/23 11:37) Rash Sulfa (Sulfonamide Antibiotics) Allergy (Unknown, Verified 05/02/23 11:37) UNKNOWN, itch, itching baclofen Allergy (Verified 05/02/23 11:37) twitching, falling down HPI HPI Comments History of Present Illness Details Justa is here today for the follow-up after the implantation of intrathecal drug delivery system pain pump on 03/22/2023. She is here to receive her 1st pump refill. She reports that application of the PTM dose results in 1 hour of pain relief. She requests escalation of the dose of the bupivacaine with frequency of every 6 hours 3 times a day. This will be performed on the pump refill-see as below.. Prior: results of the trial of intrathecal drug delivery system pain pump. Mary Grace carr reported 2 days of 50% pain reduction. She reported that her activities of daily living improved, her mobility remain the same mostly on the account of right hip pain. She had significant right hip arthritis. She received intra- articular hip injections in the past with no result. She requests me to send her for orthopedic surgery consult in relation to THR on the left. As of her pain pump she would like me to schedule her for implantation of intrathecal drug delivery system pain pump. Risks and benefits were carefully explained to the patient. She does not want to continue trialing. She requests me to prescribe her motorized scooter to improve her mobility. I will issue prescription to her on paper. She will bring it to [facility]. She is suffering from postlaminectomy syndrome. She has pain in the lower back with minimal radiation bilaterally. She reports that she had 4 surgeries on her lumbar spine on her x-ray of the lumbar spine there is intradiscal h ardware at L5-S1 interspace as well as L4-5 interspace and there is also transpedicular screws and rods fusing L4-5 vertebra as. I send her to MRI of the lumbar spine results of which dictated as below. She has multiple changes in the MRI specially above the level of her fusion. She has reversal of spinal lordosis. She has kissing osteophytes of the L1 through L3 and into L4 lumbar vertebra as. Those are most seen on the x-ray which was done for her as well. She has Modic type 1 changes in upper lumbar vertebras. She has minimal facet arthritis and ligamentum flavum thickening. There is no spinal canal or foraminal stenosis on any levels. Therefore I think that this patient is suffering from postlaminectomy syndrome. I would like to consider neuromodulation for her including pain pump and spinal cord stimulator. She past psych evaluation. She has negative about spinal cord stimulation and insisted on intrathecal drug delivery system pain pump. Also there is significant Modic changes which could be addressed with intracept procedure. All this options were again given to the patient. She would like to proceed with bupivacaine pain pump. The patient after consideration decided that she wants to go for the pain pump. She adamantly refused to try spinal cord stimulator. She said that she had spinal cord stimulator in the past and it did not work for her. I offered her also intrasept procedure but she adamantly refused to go for intracept as well. She is on Suboxone for OUD. Risks and benefits of the procedure were explained today to the patient. The patient will be scheduled for trial. [facility] Medical History (Updated 04/10/23 @ 12:41 by Melissa Topete MD) Impaired fasting glucose Smoker unmotivated to quit Cough present for greater than 3 weeks Hair thinning Prolapse of female pelvic organs Bilateral finger arthralgia Coccyx pain Diabetes mellitus with diabetic neuropathy, without long-term current use of insulin Pain or burning when swallowing Heartburn Hepatomegaly Osteoarthritis, hip, bilateral Bilateral hip pain Lumbar spondylosis Bilateral groin pain Depressive 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 History of pneumonia Vitamin B12 deficiency Vitamin D deficiency Insomnia ADHD Community acquired bilateral lower lobe pneumonia Injury of left heel Cough Cigarette smoker motivated to quit Dysuria Left shoulder pain Dyslipidemia Low back pain Lumbar degenerative disc disease Mixed incontinence urge and stress TEA on CPAP Opiate addiction Depression COPD (chronic obstructive pulmonary disease) Surgical History H/O neck surgery Status post sleeve gastrectomy History of lumbar spinal fusion H/O colonoscopy Hx of cholecystectomy History of partial hysterectomy H/O tubal ligation History of lumbar fusion Family History Father Aneurysm Other No family history of cancer Social History Household Members: Children Household Members Other:: daughter Housing: House Are you a primary care center manager to a significant other at home: No Do you presently have visiting nurse or other home services: No Alcohol intake: never Comment: NOT INDICATED Patient Tobacco Use Status: Current everyday Tobacco user Tobacco use type: Cigarette Cigarettes Per Day: 10 e-Cigarette/Vaping Use: Currently Using Second Hand Smoke Exposure: Yes service: No Current occupational status: unemployed Cognitive needs: Yes (walker) Hearing needs: No Vision needs: Yes (glasses) Review of Systems Const All systems reviewed & are unremarkable except as noted in HPI and below ENT Reports Normal hearing present Neuro Reports Normal hearing present, Denies confusion and Denies Sensory deficit (Neuro) Psych Denies confusion Physical Exam Vital Signs: Last Vital Signs Pulse 84 05/02/23 11:37 Resp 16 05/02/23 11:37 BP 130/90 H 05/02/23 11:37 Pulse Ox 96 05/02/23 11:37 Oxygen Delivery Method Room Air 05/02/23 11:37 BMI result Body Mass Index 30.8 Const General: cooperative, alert, awake, in distress (due to pain) mild and moderate and anxious; No confusion Nutritional Appearance: obese morbidly obese Orientation/consciousness: patient oriented x3 and No confusion Limitations: ambulation with walker HEENT Head: Yes normal to inspection, Yes normocephalic and No occipital foramen tenderness Ears: hearing grossly normal bilaterally and external ears normal Face and sinus: Yes normal facial exam and Yes face symmetric Eyes General: appearance normal, both eyes and all related structures Visual Pandey: normal visual pandey by confrontation Pupils: Equal, round and reactive pupils present EOM: EOMs intact bilaterally Neck Neck: Yes normal visual inspection, Yes full ROM, Yes no lymphadenopathy, Yes supple, No anterior neck swelling and Yes no JVD Chest Chest palpation & inspection: normal inspection of the chest Resp Effort & Inspection: normal respiratory effort, able to speak in complete sentences, no audible wheezes, no cough, no respiratory distress and symmetric chest movement Cardio Jugular venous distension: no JVD Bruits: no carotid bruits Peripheral pulses: radial pulses present, posterior tibial pulses present and dorsalis pedis present GI Inspection: Yes normal to inspection, No distended, Yes Abdominal panniculus present and Yes obesity Palpation (GI): Soft to palpation and nontender General: Yes no CVA tenderness Back/Spine/Pelvis Other: Limited exam due to significant back and groin pain with movements or walking, able to stand on heels and tip toes with moderate difficulty due to pain. Can flex forward up to 50-60 degrees and extend to 5-10 degrees before experiencing moderate lumbar pain. Facet loading positive bilaterally, ROM limited to pain. Demonstrates 4/5 strength of quadriceps bilaterally as well as flexion/dorsiflexion of bilateral feet against resistance. 2+ pedal pulses bilaterally. Straight leg rise with dorsiflexion positive on the left. Significant groin pain with bilateral internal and external hip rotations. Antalgic gate, ambulates slowly with walker. Lateral and medial left hip rotation causes significant groin discomfort. The patient also reports groin pain with walking Back: no CVA tenderness Cervical Spine: cervical ROM normal Thoracic/Lumbar Spine: thoracic and lumbar spine normal to inspection, Thoracic/lumbar spine scar(s), Lasegue's sign positive, pain with thoraco-lumbar ROM, paraspinal muscle tenderness, thoraco-lumbar ROM limited with forward flexion (WNL) and with lateral flexion to the left (limited by pain) and straight leg raise positive left other (at 20 degrees) Pelvis: pain with anterior-posterior compression, pain with lateral compression, buttock tenderness bilaterally and no sciatic notch tenderness Skin General skin exam: no rashes or lesions noted Neuro General: patient oriented x3, moves all extremities, Normal light touch and pain sensation, deep tendon reflexes 2+ bilaterally and No confusion Cranial nerves: Yes Equal, round and reactive pupils present and Yes Normal hearing present Cognition (Neuro): normal cognition Gait exam (Neuro): Antalgic gait present and Assistive device used Motor exam (neuro): no tremor noted and Normal motor muscle tone present throug hout Sensory Exam: No Sensory deficit (Neuro) Deep tendon reflexes (DTR's): Right patellar reflex intensity grade: 1+, Left patellar reflex intensity grade: 2+, Right ankle reflex intensity grade: 1+ and Left ankle reflex intensity grade: 1+ Extrem General: Yes full ROM, Yes capillary refill normal, Yes no clubbing, cyanosis or edema and Yes no calf tenderness Psych Appearance: grossly normal Mental Status: mental status grossly normal Speech and movement: Normal speech and movement present, Pressured speech present and Psychomotor agitation in speech present Affect: normal affect and Irritable affect present Attitude: cooperative and Avoids eye contact (attititude/behavior) Thought process: Normal thought process present and Circumstantial thought process present Thought content: Normal thought content present Assessment & Plan Assessment & Plan (1) Osteoarthritis of right hip: Code(s): M16.11 - Unilateral primary osteoarthritis, right hip (2) Postlaminectomy syndrome: Code(s): M96.1 - Postlaminectomy syndrome, not elsewhere classified (3) History of lumbar spinal fusion: Code(s): Z98.1 - Arthrodesis status (4) Lumbar degenerative disc disease: Code(s): M51.36 - Other intervertebral disc degeneration, lumbar region (5) Lumbar spondylosis: Code(s): M47.816 - Spondylosis without myelopathy or radiculopathy, lumbar region (6) Lumbar radiculopathy: Code(s): M54.16 - Radiculopathy, lumbar region (7) Osteoarthritis, hip, bilateral: Code(s): M16.0 - Bilateral primary osteoarthritis of hip (8) Bilateral hip pain: Code(s): M25.551 - Pain in right hip; M25.552 - Pain in left hip (9) Low back pain: Code(s): M54.5 - Low back pain Qualifiers: Back pain laterality: bilateral Chronicity: chronic Sciatica presence: without sciatica Qualified Code(s): M54.50 - Low back pain, unspecified; G89.29 - Other chronic pain Plan: Patient with chronic pain syndrome related to arthritis and degenerative changes of her lumbar spine, s/p 5 back surgeries with lumbar fusion. After MRI becomes more clear that she is suffering from postlaminectomy syndrome. No spinal canal stenosis. The vertebras above the fusion are demonstrating Modic 1 type changes which could be another pain generator for her. She reports most significant pain when she is laying in bed. The pump healed very well. She experienced some pain relief with application of bupivacaine in the pump. Given the choice today on whether increasing the dose of the medication or increasing the frequency of medication administration she chose to go for dose increase. I will change the dose from 2 mg to 3 mg on demand. (10) Chronic pain syndrome: Code(s): G89.4 - Chronic pain syndrome Plan: (11) Thrombocytopenia: Code(s): D69.6 - Thrombocytopenia, unspecified Plan Intrathecal pump refill. The name and date of were verified and informed consent was obtained for the procedure. Informed consent was obtained. The pump was interrogated and the residual amount of fluid was found to be 2.5 mL. SHE WAS POSITIONED prone on the bed AND THE AREA OF THE INTRATHECAL PUMP WAS PREPPED WITH CHLORAPREP. The fenestrated drape was sterilely applied over the area of the pump. Sterile gloves were worn and of the aspiration system was ass embled containing 2 in 22 gauge noncoring needle, the needle was connected to extension tubing which was connected to the 20 cc sterile syringe. The pain pump was palpated under the skin in the patient's right buttock area. The needle was inserted through the skin and the central plug of the pain pump and fluid was aspirated. The clear fluid was going into the syringe the total amount of the fluid was 2.3 mL .. After that a new batch? of medication was obtained which was containing bupivacaine 10 milligrams/mL. The admixture was made in 20 cc syringe prepared by [facility] compounding pharmacy. The syringe was connected to the bacterial filter, and then connected to the extension tubing. After that the medication in the syringe was slowly instilled into the pump with aspirations at 15 and 5 cc [place].? The pump was reprogrammed for the doses of bupivacaine continuous rate 0.5 milligrams/mL as well as on demand 3 times a day every 6 hours 1 dose of 3 mg given over the time of 20 minutes. Coding Level of Care Code Est Pt Level 3 (74352) Procedure Only Diagnoses Osteoarthritis of right hip M16.11 Postlaminectomy syndrome M96.1 History of lumbar spinal fusion Z98.1 Lumbar degenerative disc disease M51.36 Lumbar spondylosis M47.816 Lumbar radiculopathy M54.16 Osteoarthritis, hip, bilateral M16.0 Bilateral hip pain M25.551; M25.552 Low back pain M54.50; G89.29 Back pain laterality: bilateral Chronicity: chronic Sciatica presence: without sciatica Chronic pain syndrome G89.4 Thrombocytopenia D69.6
[2023-05-02 11:37] VITALS: BP 130/90; PULSE 84; RESP 16; O2SAT 96; BMI 30.8
== END 2023-05-02 11:17 | disposition home or self-care (01) ==
PROVIDERS: PCP Internal Medicine; Visit Provider Anesthesiology
DX: G89.4 Chronic pain syndrome (principal); Z45.1 Encounter for adjustment and management of infusion pump; M16.11 Unilateral primary osteoarthritis, right hip; M96.1 Postlaminectomy syndrome, not elsewhere classified; M51.36 Other intervertebral disc degeneration, lumbar region; M47.816 Spondylosis without myelopathy or radiculopathy, lumbar region; M54.16 Radiculopathy, lumbar region; M16.0 Bilateral primary osteoarthritis of hip; M25.551 Pain in right hip; M25.552 Pain in left hip; M54.50 Low back pain, unspecified; G89.29 Other chronic pain
CPT/HCPCS: 62370

== ENCOUNTER 2023-05-20 09:49 | Outpatient (AMB) | payer MEDICARE, MEDICAID, SELFPAY ==
--- NOTE | 2023-05-20 09:55 | A.OFFVIS_ITS ---
Intake Vital Signs 05/20/23 10:32 Height 5 ft 4 in Weight 179 lb BMI 30.7 BP 120/60 Blood Pressure Location Lt brachial Position Sitting Respiration 14 Pulse 75 Pulse Source Pulse Oximeter Pulse Oximetry (%) 96 Oxygen Delivery Method Room Air Intake Visit Reasons: ITDD Refill/confirmed Intake Note: Patient comes in for intrathecal medication refill. Reports pain 01/29. Allergies bupropion [From Wellbutrin] Allergy (Intermediate, Verified 05/20/23 10:31) Itching influenza virus vaccine, specific [FLU VACCINE] Allergy (Unknown, Verified 05/20/23 10:31) RASH latex Allergy (Unknown, Verified 05/20/23 10:31) Rash Sulfa (Sulfonamide Antibiotics) Allergy (Unknown, Verified 05/20/23 10:31) UNKNOWN, itch, itching baclofen Allergy (Verified 05/20/23 10:31) twitching, falling down HPI HPI Comments History of Present Illness Details Justa is here today for the refill of the intrathecal pain pump. She reports significant side effects. She reports significant weakness in bilateral lower extremities when she administers herself dose of bupivacaine. She also states that the current medication which is bupivacaine does not help her pain. However when I told her that we could try to turn her pump to minimal rate so she would appreciate how much her pain is being relief-she adamantly refused. She wants to try something else. Unfortunately she is on Suboxone and we can not try opioid medications in her pump. We can try baclofen or clonidine, she reports that clonidine make her tired and she is allergic to baclofen. Finally we decided to try clonidine as 1 trial in 1 month from now. I will invite her for pump refill with clonidine, it will be 100 micro g of clonidine in 20 mL of preservative-free normal saline. I will start her on minimal dose of clonidine 20 micro g a day without a bolus dose to start with and I will slowly increase the dose in concentration of clonidine to maximal dose or to any side effects. Two alternatives could be offered to this patient: Prialt could be tried however she thinks that this medication could be too expensive for her, we would need to ask [facility] what would be her co-pay with her insurance she will go Prialt. Yet another alternative would be to stop a bupivacaine doses on demand and see how escalation of continuous bupivacaine medication will affect this patient's pain. Unfortunately she is allergic to baclofen, she is on Suboxone oral for opioid use disorder. Prior: results of the trial of intrathecal drug delivery system pain pump. She reported 2 days of 50% pain reduction. She reported that her activities of daily living improved, her mobility remain the same mostly on the account of right hip pain. She had significant right hip arthritis. She received intra- articular hip injections in the past with no result. She requests me to send her for orthopedic surgery consult in relation to THR on the left. As of her pain pump she would like me to schedule her for implantation of intrathecal drug delivery system pain pump. Risks and benefits were carefully explained to the patient. She does not want to continue trialing. She requests me to prescribe her motorized scooter to improve her mobility. I will issue prescription to her on paper. She will bring it to [facility]. She is suffering from postlaminectomy syndrome. She has pain in the lower back with minimal radiation bilaterally. She reports that she had 4 surgeries on her lumbar spine on her x-ray of the lumbar spine there is intradiscal hardware at L5-S1 interspace as well as L4-5 interspace and there is also transpedicular screws and rods fusing L4-5 vertebra as. I send her to MRI of the lumbar spine results of which dictated as below. She has multiple changes in the MRI specially above the level of her fusion. She has reversal of spinal lordosis. She has kissing osteophytes of the L1 through L3 and into L4 lumbar vertebra as. Those are most seen on the x-ray which was done for her as well. She has Modic type 1 changes in upper lumbar vertebras. She has minimal facet arthritis and ligamentum flavum thickening. There is no spinal canal or foraminal stenosis on any levels. Therefore I think that this patient is suffering from postlaminectomy syndrome. I would like to consider neuromodulation for her including pain pump and spinal cord stimulator. She past psych evaluation. She has negative about spinal cord stimulation and insisted on intrathecal drug delivery system pain pump. Also there is significant Modic changes which could be addressed with intracept procedure. All this options were again given to the patient. She would like to proceed with bupivacaine pain pump. The patient after consideration decided that she wants to go for the pain pump. She adamantly refused to try spinal cord stimulator. She said that she had spinal cord stimulator in the past and it did not work for her. I offered her also intrasept procedure but she adamantly refused to go for intracept as well. She is on Suboxone for OUD. Risks and benefits of the procedure were explained today to the patient. The patient will be scheduled for trial. [facility] Medical History (Updated 04/10/23 @ 12:41 by Melissa Topete MD) Impaired fasting glucose Smoker unmotivated to quit Cough present for greater than 3 weeks Hair thinning Prolapse of female pelvic organs Bilateral finger arthralgia Coccyx pain Diabetes mellitus with diabetic neuropathy, without long-term current use of insulin Pain or burning when swallowing Heartburn Hepatomegaly Osteoarthritis, hip, bilateral Bilateral hip pain Lumbar spondylosis Bilateral groin pain Depressive 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 History of pneumonia Vitamin B12 deficiency Vitamin D deficiency Insomnia ADHD Community acquired bilateral lower lobe pneumonia Injury of left heel Cough Cigarette smoker motivated to quit Dysuria Left shoulder pain Dyslipidemia Low back pain Lumbar degenerative disc disease Mixed incontinence urge and stress TEA on CPAP Opiate addiction Depression COPD (chronic obstructive pulmonary disease) Surgical History H/O neck surgery Status post sleeve gastrectomy History of lumbar spinal fusion H/O colonoscopy Hx of cholecystectomy History of partial hysterectomy H/O tubal ligation History of lumbar fusion Family History Father Aneurysm Other No family history of cancer Social History Household Members: Children Household Members Other:: daughter Housing: House Are you a primary healthcare network pricing consultant to a significant other at home: No Do you presently have visiting nurse or other home services: No Alcohol intake: never Comment: NOT INDICATED Patient Tobacco Use Status: Current everyday Tobacco user Tobacco use type: Cigarette Cigarettes Per Day: 10 e-Cigarette/Vaping Use: Currently Using Second Hand Smoke Exposure: Yes service: No Current occupational status: unemployed Cognitive needs: Yes (walker) Hearing needs: No Vision needs: Yes (glasses) Review of Systems Const All systems reviewed & are unremarkable except as noted in HPI and below ENT Reports Normal hearing present Neuro Reports Normal hearing present, Denies confusion and Denies Sensory deficit (Neuro) Psych Denies confusion Physical Exam Vital Signs: Last Vital Signs Pulse 75 05/20/23 10:32 Resp 14 05/20/23 10:32 BP 120/60 05/20/23 10:32 Pulse Ox 96 05/20/23 10:32 Oxygen Delivery Method Room Air 05/20/23 10:32 BMI result Body Mass Index 30.7 Const General: cooperative, alert, awake, in distress (due to pain) mild and moderate and anxious; No confusion Nutritional Appearance: obese morbidly obese Orientation/consciousness: patient oriented x3 and No confusion Limitations: ambulation with walker HEENT Head: Yes normal to inspection, Yes normocephalic and No occipital foramen tenderness Ears: hearing grossly normal bilaterally and external ears normal Face and sinus: Yes normal facial exam and Yes face symmetric Eyes General: appearance normal, both eyes and all related structures Visual Evangelista: normal visual evangelista by confrontation Pupils: Equal, round and reactive pupils present EOM: EOMs intact bilaterally Neck Neck: Yes normal visual inspection, Yes full ROM, Yes no lymphadenopathy, Yes supple, No anterior neck swelling and Yes no JVD Chest Chest palpation & inspection: normal inspection of the chest Resp Effort & Inspection: normal respiratory effort, able to speak in complete sentences, no audible wheezes, no cough, no respiratory distress and symmetric chest movement Cardio Jugular venous distension: no JVD Bruits: no carotid bruits Peripheral pulses: radial pulses present, posterior tibial pulses present and dorsalis pedis present GI Inspection: Yes normal to inspection, No distended, Yes Abdominal panniculus pre sent and Yes obesity Palpation (GI): Soft to palpation and nontender General: Yes no CVA tenderness Back/Spine/Pelvis Other: Limited exam due to significant back and groin pain with movements or walking, able to stand on heels and tip toes with moderate difficulty due to pain. Can flex forward up to 50-60 degrees and extend to 5-10 degrees before experiencing moderate lumbar pain. Facet loading positive bilaterally, ROM limited to pain. Demonstrates 4/5 strength of quadriceps bilaterally as well as flexion/dorsiflexion of bilateral feet against resistance. 2+ pedal pulses bilaterally. Straight leg rise with dorsiflexion positive on the left. Significant groin pain with bilateral internal and external hip rotations. Antalgic gate, ambulates slowly with walker. Lateral and medial left hip rotation causes significant groin discomfort. The patient also reports groin pain with walking Back: no CVA tenderness Cervical Spine: cervical ROM normal Thoracic/Lumbar Spine: thoracic and lumbar spine normal to inspection, Thoracic/lumbar spine scar(s), Lasegue's sign positive, pain with thoraco-lumbar ROM, paraspinal muscle tenderness, thoraco-lumbar ROM limited with forward flexion (WNL) and with lateral flexion to the left (limited by pain) and straight leg raise positive left other (at 20 degrees) Pelvis: pain with anterior-posterior compression, pain with lateral compression, buttock tenderness bilaterally and no sciatic notch tenderness Skin General skin exam: no rashes or lesions noted Neuro General: patient oriented x3, moves all extremities, Normal light touch and pain sensation, deep tendon reflexes 2+ bilaterally and No confusion Cranial nerves: Yes Equal, round and reactive pupils present and Yes Normal hearing present Cognition (Neuro): normal cognition Gait exam (Neuro): Antalgic gait present and Assistive device used Motor exam (neuro): no tremor noted and Normal motor muscle tone present throughout Sensory Exam: No Sensory deficit (Neuro) Deep tendon reflexes (DTR's): Right patellar reflex intensity grade: 1+, Left patellar reflex intensity grade: 2+, Right ankle reflex intensity grade: 1+ and Left ankle reflex intensity grade: 1+ Extrem General: Yes full ROM, Yes capillary refill normal, Yes no clubbing, cyanosis or edema and Yes no calf tenderness Psych Appearance: grossly normal Mental Status: mental status grossly normal Speech and movement: Normal speech and movement present, Pressured speech present and Psychomotor agitation in speech present Affect: normal affect and Irritable affect present Attitude: cooperative and Avoids eye contact (attititude/behavior) Thought process: Normal thought process present and Circumstantial thought process present Thought content: Normal thought content present Assessment & Plan Assessment & Plan (1) Osteoarthritis of right hip: Code(s): M16.11 - Unilateral primary osteoarthritis, right hip (2) Postlaminectomy syndrome: Code(s): M96.1 - Postlaminectomy syndrome, not elsewhere classified (3) History of lumbar spinal fusion: Code(s): Z98.1 - Arthrodesis status (4) Lumbar degenerative disc disease: Code(s): M51.36 - Other intervertebral disc degeneration, lumbar region (5) Lumbar spondylosis: Code(s): M47.816 - Spondylosis without myelopathy or radiculopathy, lumbar region (6) Lumbar radiculopathy: Code(s): M54.16 - Radiculopathy, lumbar region (7) Osteoarthritis, hip, bilateral: Code(s): M16.0 - Bilateral primary osteoarthritis of hip (8) Bilateral hip pain: Code(s): M25.551 - Pain in right hip; M25.552 - Pain in left hip (9) Low back pain: Code(s): M54.5 - Low back pain Qualifiers: Back pain laterality: bilateral Chronicity: chronic Sciatica presence: without sciatica Qualified Code(s): M54.50 - Low back pain, unspecified; G89.29 - Other chronic pain Plan: Patient with chronic pain syndrome related to arthritis and degenerative changes of her lumbar spine, s/p 5 back surgeries with lumbar fusion. After MRI becomes more clear that she is suffering from postlaminectomy syndrome. No spinal canal stenosis. The vertebras above the fusion are demonstrating Modic 1 type changes which could be another pain generator for her. She reports most significant pain when she is laying in bed. She is not very happy about effectiveness of her her pain pump, she is experiencing side effects her legs becoming weak when she administers PTM for her. See the discussion is as above. The pump refill is as below. (10) Chronic pain syndrome: Code(s): G89.4 - Chronic pain syndrome Plan: (11) Thrombocytopenia: Code(s): D69.6 - Thrombocytopenia, unspecified Plan Intrathecal pump refill. The name and date of were verified and informed consent was obtained for the procedure. Informed consent was obtained. The pump was interrogated and the residual amount of fluid was found to be 4.8 mL. SHE WAS POSITIONED prone on the bed AND THE AREA OF THE INTRATHECAL PUMP WAS PREPPED WITH CHLORAPREP. The fenestrated drape was sterilely applied over the area of the pump. Sterile gloves were worn and of the aspiration system was assembled containing 2 in 22 gauge noncoring needle, the needle was connected to extension tubing which was connected to the 20 cc sterile syringe. The pain pump was palpated under the skin in the patient's right buttock area. The needle was inserted through the skin and the central plug of the pain pump and fluid was aspirated. The clear fluid was going into the syringe the total amount of the fluid was 4.9 mL .. After that a new batch? of medication was obtained which was containing bupivacaine 10 milligrams/mL. The admixture was made in 20 cc syringe prepared by [facility] compounding pharmacy. The syringe was connected to the bacterial filter, and then connected to the extension tubing. After that the medication in the syringe was slowly instilled into the pump with aspirations at 15 and 5 cc [place].? The pump was reprogrammed for the doses of bupivacaine continuous rate 0.5 milligrams/mL as well as on demand 3 times a day every 6 hours 1 dose of 3 mg given over the time of 20 minutes. Patient Instructions: I here by testify that I spent 36 minutes in conversation with this patient as well as filling up her pump, as well as evaluating her prior records and organizing her note. Coding Level of Care Code Est Pt Level 4 (27671) Procedure Only Diagnoses Osteoarthritis of right hip M16.11 Postlaminectomy syndrome M96.1 History of lumbar spinal fusion Z98.1 Lumbar degenerative disc disease M51.36 Lumbar spondylosis M47.816 Lumbar radiculopathy M54.16 Osteoarthritis, hip, bilateral M16.0 Bilateral hip pain M25.551; M25.552 Low back pain M54.50; G89.29 Back pain laterality: bilateral Chronicity: chronic Sciatica presence: without sciatica Chronic pain syndrome G89.4 Thrombocytopenia D69.6
[2023-05-20 10:32] VITALS: BP 120/60; PULSE 75; RESP 14; O2SAT 96; BMI 30.7
== END 2023-05-20 10:20 | disposition home or self-care (01) ==
PROVIDERS: PCP Internal Medicine; Visit Provider Anesthesiology
DX: G89.4 Chronic pain syndrome (principal); M16.11 Unilateral primary osteoarthritis, right hip; M96.1 Postlaminectomy syndrome, not elsewhere classified; Z98.1 Arthrodesis status; M51.36 Other intervertebral disc degeneration, lumbar region; Z45.1 Encounter for adjustment and management of infusion pump
CPT/HCPCS: 62370; 99214

== ENCOUNTER → 2023-05-20 09:49 | Outpatient (BNVA) | payer MEDICARE, MEDICAID, SELFPAY | PROVIDERS: PCP Internal Medicine; Visit Provider Anesthesiology | DX: M16.0 Bilateral primary osteoarthritis of hip (principal); M96.1 Postlaminectomy syndrome, not elsewhere classified; Z98.1 Arthrodesis status; M51.36 Other intervertebral disc degeneration, lumbar region; M47.816 Spondylosis without myelopathy or radiculopathy, lumbar region; M54.16 Radiculopathy, lumbar region; M54.50 Low back pain, unspecified; D69.6 Thrombocytopenia, unspecified; G89.29 Other chronic pain | CPT/HCPCS: 62370; 99212 ==

== ENCOUNTER 2023-05-21 11:20 | Outpatient (AMB) | payer MEDICARE, MEDICAID, SELFPAY ==
--- NOTE | 2023-05-21 11:00 | MHC.OFFVISWM ---
Intake VS Expanded 05/21/23 11:09 Height 5 ft 4 in Weight 173 lb BMI 29.7 Intake Visit Reasons: (TELEPHONE) PO LSG 10/24/21 Allergies bupropion [From Wellbutrin] Allergy (Intermediate, Verified 05/20/23 10:31) Itching influenza virus vaccine, specific [FLU VACCINE] Allergy (Unknown, Verified 05/20/23 10:31) RASH latex Allergy (Unknown, Verified 05/20/23 10:31) Rash Sulfa (Sulfonamide Antibiotics) Allergy (Unknown, Verified 05/20/23 10:31) UNKNOWN, itch, itching baclofen Allergy (Verified 05/20/23 10:31) twitching, falling down HPI HPI Comments History of Present Illness Details This?is a?62?yo female who is s/p LSG 10/24/2021. Presents for 18 month post op visit. Weight at last visit on 02/18/2023 was 163.2 pounds with a BMI of 28, weight today is 173 pounds, representing a 10.2 pound weight gain with a BMI today of 29.7.? No complaints of nausea, emesis, abdominal pain or reflux, or constipation. Present meal plan includes: breakfast- 2 scoops in 8 oz unsweetened almond milk lunch- another shake dinner- 4-6 forks protein, 4-6 forks veg, 2-4 forkfuls starch created at last visit One protein shake- Celebrate 4:1, 1 scoop in 8oz UAM Atkins protein bars- 3 per day 1 meal- chicken with baked potato, vegetables; or steak with just vegetables She has been taking GOLO weight loss supplement Exercise routine includes: mobility is difficult, walks with a walker Pt reports problems with excess skin of abdomen. She continues to have difficulty with rashes, not well controlled by clotrimazole. If sweat or moisture collects in the skin fold it becomes very malodorous, has to wash frequently. Very uncomfortable and painful even when walking due to the heaviness of the skin. She also complains of problems of excess skin of arms. She develops irritation from excess skin rubbing against her body. Also causes discomfort due to heaviness. [facility] Medical History (Updated 04/10/23 @ 12:41 by Melissa Topete MD) Impaired fasting glucose Smoker unmotivated to quit Cough present for greater than 3 weeks Hair thinning Prolapse of female pelvic organs Bilateral finger arthralgia Coccyx pain Diabetes mellitus with diabetic neuropathy, without long-term current use of insulin Pain or burning when swallowing Heartburn Hepatomegaly Osteoarthritis, hip, bilateral Bilateral hip pain Lumbar spondylosis Bilateral groin pain Depressive 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 History of pneumonia Vitamin B12 deficiency Vitamin D deficiency Insomnia ADHD Community acquired bilateral lower lobe pneumonia Injury of left heel Cough Cigarette smoker motivated to quit Dysuria Left shoulder pain Dyslipidemia Low back pain Lumbar degenerative disc disease Mixed incontinence urge and stress TEA on CPAP Opiate addiction Depression COPD (chronic obstructive pulmonary disease) Surgical History H/O neck surgery Status post sleeve gastrectomy History of lumbar spinal fusion H/O colonoscopy Hx of cholecystectomy History of partial hysterectomy H/O tubal ligation History of lumbar fusion Family History Father Aneurysm Other No family history of cancer Social History Household Members: Children Household Members Other:: daughter Housing: House Are you a primary complex care nurse to a significant other at home: No Do you presently have visiting nurse or other home services: No Alcohol intake: never Comment: NOT INDICATED Patient Tobacco Use Status: Current everyday Tobacco user Tobacco use type: Cigarette Cigarettes Per Day: 10 e-Cigarette/Vaping Use: Currently Using Second Hand Smoke Exposure: Yes service: No Current occupational status: unemployed Cognitive needs: Yes (walker) Hearing needs: No Vision needs: Yes (glasses) Assessment & Plan Assessment & Plan (1) Overweight: Code(s): E66.3 - Overweight (2) Status post sleeve gastrectomy: Comment: 10/24/2021 Code(s): Z90.3 - Acquired absence of stomach [part of] (3) Excess skin: Code(s): L98.7 - Excessive and redundant skin and subcutaneous tissue Plan Pt wants a new meal plan to help with weight loss. Suggested 3 Celebrate shakes with 1 scoop in 8oz UAM each, plus 2 Atkins protein bars. Goal 10lbs weight loss prior to submission for skin removal surgery. Recommended pt stop GOLO supplement but she does not want to. Reviewed the need for smoking cessation 1 month prior to surgery. Pt overdue for labs, reminded to have done. RTC 6 weeks. Texted meal plan to pt and encouraged her to reach out between appts with any concerns. Once recovered from skin removal surgery she is interested in meeting with RD. Patient is overweight and is not considered stable at this time. I spent a total of 30 minutes reviewing/updating records, examining the patient and counseling the patient on weight management as detailed above. Telehealth Telehealth Location of provider rendering services: practice address Location of patient: address on file Patient Identification confirmed using: Name, : Yes Telehealth method: voice only Patient verbally consented to treatment: Yes Patient verbally consented to billing insurance company: Yes Patient informed of any privacy concerns related to visit: Yes Minutes spent on Phone/Video with Pt.: 15 Coding Level of Care Code Tele Est Pt Level 4 (17210) Diagnoses Overweight E66.3 Status post sleeve gastrectomy Z90.3 Excess skin L98.7
[2023-05-21 11:09] VITALS: BMI 29.7
== END 2023-05-21 11:26 | disposition home or self-care (01) ==
LOC: HO.HBS 11:21
PROVIDERS: PCP Internal Medicine; Visit Provider Physician Assistant Surgical
DX: E66.3 Overweight (principal); Z68.29 Body mass index [BMI] 29.0-29.9, adult; Z90.3 Acquired absence of stomach [part of]; L98.7 Excessive and redundant skin and subcutaneous tissue
CPT/HCPCS: 99442

== ENCOUNTER → 2023-05-21 11:20 | Outpatient (BNVA) | payer MEDICARE, MEDICAID, SELFPAY | PROVIDERS: PCP Internal Medicine; Visit Provider Physician Assistant Surgical ==

== ENCOUNTER 2023-05-29 11:20 | Outpatient (REF) | payer MEDICARE, MEDICAID, SELFPAY | END 2023-05-29 11:21 | disposition home or self-care (01) | LOC: HO.LAB 11:20 | PROVIDERS: Referring Provider Internal Medicine; Visit Provider Anesthesiology | DX: Z13.89 Encounter for screening for other disorder (principal) ==

== ENCOUNTER 2023-06-20 10:49 | Outpatient (AMB) | payer MEDICARE, MEDICAID, SELFPAY ==
--- NOTE | 2023-06-20 10:49 | A.OFFVIS_ITS ---
Intake Vital Signs 06/20/23 11:41 Height 5 ft 4 in Weight 174 lb 4 oz BMI 29.9 BP 112/62 Blood Pressure Location Lt brachial Position Sitting Respiration 16 Pulse 110 H Pulse Source Pulse Oximeter Pulse Oximetry (%) 96 Oxygen Delivery Method Room Air Intake Visit Reasons: ITDD REFILL - LVM Intake Note: Patient comes in for intrathecal medication refill. Reports pain 01/29. Allergies bupropion [From Wellbutrin] Allergy (Intermediate, Verified 05/20/23 10:31) Itching influenza virus vaccine, specific [FLU VACCINE] Allergy (Unknown, Verified 05/20/23 10:31) RASH latex Allergy (Unknown, Verified 05/20/23 10:31) Rash Sulfa (Sulfonamide Antibiotics) Allergy (Unknown, Verified 05/20/23 10:31) UNKNOWN, itch, itching baclofen Allergy (Verified 05/20/23 10:31) twitching, falling down HPI HPI Comments History of Present Illness Details Justa is here today for the refill of the intrathecal pain pump. She reports significant side effects. She reports significant weakness in bilateral lower extremities when she administers herself dose of bupivacaine. She also states that the current medication which is bupivacaine does not help her pain. However when I told her that we could try to turn her pump to minimal rate so she would appreciate how much her pain is being relief-she adamantly refused. She wants to try something else. Unfortunately she is on Suboxone and we can not try opioid medications in her pump. We can try baclofen or clonidine, she reports that clonidine make her tired and she is allergic to baclofen. Finally we decided to try clonidine as 1 trial in 1 month from now. I will invite her for pump refill with clonidine, it will be 100 micro g of clonidine in 20 mL of preservative-free normal saline. I will start her on minimal dose of clonidine 20 micro g a day without a bolus dose to start with and I will slowly increase the dose in concentration of clonidine to maximal dose or to any side effects. Two alternatives could be offered to this patient: Prialt could be tried however she thinks that this medication could be too expensive for her, we would need to ask [facility] what would be her co-pay with her insurance she will go Prialt. Yet another alternative would be to stop a bupivacaine doses on demand and see how escalation of continuous bupivacaine medication will affect this patient's pain. Unfortunately she is allergic to baclofen, she is on Suboxone oral for opioid use disorder. Prior: results of the trial of intrathecal drug delivery system pain pump. She reported 2 days of 50% pain reduction. She reported that her activities of daily living improved, her mobility remain the same mostly on the account of right hip pain. She had significant right hip arthritis. She received intra- articular hip injections in the past with no result. She requests me to send her for orthopedic surgery consult in relation to THR on the left. As of her pain pump she would like me to schedule her for implantation of intrathecal drug delivery system pain pump. Risks and benefits were carefully explained to the patient. She does not want to continue trialing. She requests me to prescribe her motorized scooter to improve her mobility. I will issue prescription to her on paper. She will bring it to [facility]. She is suffering from postlaminectomy syndrome. She has pain in the lower back with minimal radiation bilaterally. She reports that she had 4 surgeries on her lumbar spine on her x-ray of the lumbar spine there is intradiscal hardware at L5-S1 interspace as well as L4-5 interspace and there is also transpedicular screws and rods fusing L4-5 vertebra as. I send her to MRI of the lumbar spine results of which dictated as below. She has multiple changes in the MRI specially above the level of her fusion. She has reversal of spinal lordosis. She has kissing osteophytes of the L1 through L3 and into L4 lumbar vertebra as. Those are most seen on the x-ray which was done for her as well. She has Modic type 1 changes in upper lumbar vertebras. She has minimal facet arthritis and ligamentum flavum thickening. There is no spinal canal or foraminal stenosis on any levels. Therefore I think that this patient is suffering from postlaminectomy syndrome. I would like to consider neuromodulation for her including pain pump and spinal cord stimulator. She past psych evaluation. She has negative about spinal cord stimulation and insisted on intrathecal drug delivery system pain pump. Also there is significant Modic changes which could be addressed with intracept procedure. All this options were again given to the patient. She would like to proceed with bupivacaine pain pump. The patient after consideration decided that she wants to go for the pain pump. She adamantly refused to try spinal cord stimulator. She said that she had spinal cord stimulator in the past and it did not work for her. I offered her also intrasept procedure but she adamantly refused to go for intracept as well. She is on Suboxone for OUD. Risks and benefits of the procedure were explained today to the patient. The patient will be scheduled for trial. [facility] Medical History (Updated 04/10/23 @ 12:41 by Melissa Topete MD) Impaired fasting glucose Smoker unmotivated to quit Cough present for greater than 3 weeks Hair thinning Prolapse of female pelvic organs Bilateral finger arthralgia Coccyx pain Diabetes mellitus with diabetic neuropathy, without long-term current use of insulin Pain or burning when swallowing Heartburn Hepatomegaly Osteoarthritis, hip, bilateral Bilateral hip pain Lumbar spondylosis Bilateral groin pain Depressive 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 History of pneumonia Vitamin B12 deficiency Vitamin D deficiency Insomnia ADHD Community acquired bilateral lower lobe pneumonia Injury of left heel Cough Cigarette smoker motivated to quit Dysuria Left shoulder pain Dyslipidemia Low back pain Lumbar degenerative disc disease Mixed incontinence urge and stress TEA on CPAP Opiate addiction Depression COPD (chronic obstructive pulmonary disease) Surgical History H/O neck surgery Status post sleeve gastrectomy History of lumbar spinal fusion H/O colonoscopy Hx of cholecystectomy History of partial hysterectomy H/O tubal ligation History of lumbar fusion Family History Father Aneurysm Other No family history of cancer Social History Household Members: Children Household Members Other:: daughter Housing: House Are you a primary resident care coordinator to a significant other at home: No Do you presently have visiting nurse or other home services: No Alcohol intake: never Comment: NOT INDICATED Patient Tobacco Use Status: Current everyday Tobacco user Tobacco use type: Cigarette Cigarettes Per Day: 10 e-Cigarette/Vaping Use: Currently Using Second Hand Smoke Exposure: Yes service: No Current occupational status: unemployed Cognitive needs: Yes (walker) Hearing needs: No Vision needs: Yes (glasses) Review of Systems Const All systems reviewed & are unremarkable except as noted in HPI and below Physical Exam Vital Signs: Last Vital Signs Pulse 110 H 06/20/23 11:41 Resp 16 06/20/23 11:41 BP 112/62 06/20/23 11:41 Pulse Ox 96 06/20/23 11:41 Oxygen Delivery Method Room Air 06/20/23 11:41 BMI result Body Mass Index 29.9 Const General: cooperative, alert, awake, in distress (due to pain) mild and moderate and anxious Nutritional Appearance: obese morbidly obese Limitations: ambulation with walker HEENT Head: Yes normal to inspection, Yes normocephalic and No occipital foramen tenderness Ears: hearing grossly normal bilaterally and external ears normal Face and sinus: Yes normal facial exam and Yes face symmetric Eyes General: appearance normal, both eyes and all related structures Visual Evangelista: normal visual evangelista by confrontation EOM: EOMs intact bilaterally Neck Neck: Yes normal visual inspection, Yes full ROM, Yes no lymphadenopathy, Yes supple, No anterior neck swelling and Yes no JVD Chest Chest palpation & inspection: normal inspection of the chest Resp Effort & Inspection: normal respiratory effort, able to speak in complete sentences, no audible wheezes, no cough, no respiratory distress and symmetric chest movement Cardio Jugular venous distension: no JVD Bruits: no carotid bruits Peripheral pulses: radial pulses present, posterior tibial pulses present and dorsalis pedis present GI Inspection: Yes normal to inspection, No distended, Yes Abdominal panniculus present and Yes obesity Palpation (GI): Soft to palpation and nontender General: Yes no CVA tenderness Back/Spine/Pelvis Other: Limited exam due to significant back and groin pain with movements or walking, able to stand on heels and tip toes with moderate difficulty due to pain. Can flex forward up to 50-60 degrees and extend to 5-10 degrees before experiencing moderate lumbar pain. Facet loading positive bilaterally, ROM limited to pain. Demonstrates 4/5 strength of quadriceps bilaterally as well as flexion/dorsiflexion of bilateral feet against resistance. 2+ pedal pulses bilaterally. Straight leg rise with dorsiflexion positive on the left. Sign ificant groin pain with bilateral internal and external hip rotations. Antalgic gate, ambulates slowly with walker. Lateral and medial left hip rotation causes significant groin discomfort. The patient also reports groin pain with walking Back: no CVA tenderness Cervical Spine: cervical ROM normal Thoracic/Lumbar Spine: thoracic and lumbar spine normal to inspection, Thoracic/lumbar spine scar(s), Lasegue's sign positive, pain with thoraco-lumbar ROM, paraspinal muscle tenderness, thoraco-lumbar ROM limited with forward flexion (WNL) and with lateral flexion to the left (limited by pain) and straight leg raise positive left other (at 20 degrees) Pelvis: pain with anterior-posterior compression, pain with lateral compression, buttock tenderness bilaterally and no sciatic notch tenderness Skin General skin exam: no rashes or lesions noted Extrem General: Yes full ROM, Yes capillary refill normal, Yes no clubbing, cyanosis or edema and Yes no calf tenderness Psych Appearance: grossly normal Mental Status: mental status grossly normal Speech and movement: Normal speech and movement present, Pressured speech present and Psychomotor agitation in speech present Affect: normal affect and Irritable affect present Attitude: cooperative and Avoids eye contact (attititude/behavior) Thought process: Normal thought process present and Circumstantial thought process present Thought content: Normal thought content present Assessment & Plan Assessment & Plan (1) Osteoarthritis of right hip: Code(s): M16.11 - Unilateral primary osteoarthritis, right hip (2) Postlaminectomy syndrome: Code(s): M96.1 - Postlaminectomy syndrome, not elsewhere classified (3) History of lumbar spinal fusion: Code(s): Z98.1 - Arthrodesis status (4) Lumbar degenerative disc disease: Code(s): M51.36 - Other intervertebral disc degeneration, lumbar region (5) Lumbar spondylosis: Code(s): M47.816 - Spondylosis without myelopathy or radiculopathy, lumbar region (6) Lumbar radiculopathy: Code(s): M54.16 - Radiculopathy, lumbar region (7) Osteoarthritis, hip, bilateral: Code(s): M16.0 - Bilateral primary osteoarthritis of hip (8) Bilateral hip pain: Code(s): M25.551 - Pain in right hip; M25.552 - Pain in left hip (9) Low back pain: Code(s): M54.5 - Low back pain Qualifiers: Back pain laterality: bilateral Chronicity: chronic Sciatica presence: without sciatica Qualified Code(s): M54.50 - Low back pain, unspecified; G89.29 - Other chronic pain Plan: Patient with chronic pain syndrome related to arthritis and degenerative changes of her lumbar spine, s/p 5 back surgeries with lumbar fusion. After MRI becomes more clear that she is suffering from postlaminectomy syndrome. No spinal canal stenosis. The vertebras above the fusion are demonstrating Modic 1 type changes which could be another pain generator for her. She reports most significant pain when she is laying in bed. (10) Chronic pain syndrome: Code(s): G89.4 - Chronic pain syndrome Plan: (11) Thrombocytopenia: Code(s): D69.6 - Thrombocytopenia, unspecified Plan: Side effects of clonidine and behavior modifications needed while on intrathecal clonidine therapy was carefully explained to the patient, patient asked numerous questions, the questions were answered in detail. Plan Intrathecal pump refill. The patient came today to the office to change medication in her pain pump. Instead of previous bupivacaine 10 milligrams/mL she will receive clonidine 100 micro g per mL alone. The name and date of were verified and informed consent was obtained for the procedure. Informed consent was obtained. The pump was interrogated and the residual amount of fluid was found to be 14.1 mL. SHE WAS POSITIONED prone on the bed AND THE AREA OF THE INTRATHECAL PUMP WAS PREPPED WITH CHLORAPREP. The fenestrated drape was sterilely applied over the area of the pump. Sterile gloves were worn and of the aspiration system was assembled containing 2 in 22 gauge noncoring needle, the needle was connected to extension tubing which was connected to the 20 cc sterile syringe. The pain pump was palpated under the skin in the patient's right buttock area. The needle was inserted through the skin and the central plug of the pain pump and fluid was aspirated. The clear fluid was going into the syringe the total amount of the fluid was 14.0 mL .. After that a new batch? of medication was obtained which was containing clonidine 100 micro g per mL. The admixture was made in 20 cc syringe prepared by [facility] compounding pharmacy. The syringe was connected to the bacterial filter, and then connected to the extension tubing. After that the medication in the syringe was slowly instilled into the pump with aspirations at 15 and 5 cc [place].? The pump was reprogrammed for the continues doses of clonidine 20 micro g a day as well as clonidine 15 micro g on demand PTM doses 2 times a day once in 8 hours. Patient Instructions: I here by testify that I spent 35 minutes in conversation with this patient as well as evaluating her records, organizing her note, making future plans for this patient. Coding Level of Care Code Est Pt Level 4 (33152) Procedure Only Diagnoses Osteoarthritis of right hip M16.11 Postlaminectomy syndrome M96.1 History of lumbar spinal fusion Z98.1 Lumbar degenerative disc disease M51.36 Lumbar spondylosis M47.816 Lumbar radiculopathy M54.16 Osteoarthritis, hip, bilateral M16.0 Bilateral hip pain M25.551; M25.552 Low back pain M54.50; G89.29 Back pain laterality: bilateral Chronicity: chronic Sciatica presence: without sciatica Chronic pain syndrome G89.4 Thrombocytopenia D69.6
[2023-06-20 11:41] VITALS: BP 112/62; PULSE 110; RESP 16; O2SAT 96; BMI 29.9
== END 2023-06-20 11:26 | disposition home or self-care (01) ==
PROVIDERS: PCP Internal Medicine; Visit Provider Anesthesiology
DX: M16.11 Unilateral primary osteoarthritis, right hip (principal); M96.1 Postlaminectomy syndrome, not elsewhere classified; Z98.1 Arthrodesis status; Z45.1 Encounter for adjustment and management of infusion pump; M51.36 Other intervertebral disc degeneration, lumbar region; M47.816 Spondylosis without myelopathy or radiculopathy, lumbar region; M54.16 Radiculopathy, lumbar region; M16.0 Bilateral primary osteoarthritis of hip; M25.551 Pain in right hip; M25.552 Pain in left hip; M54.50 Low back pain, unspecified; G89.29 Other chronic pain
CPT/HCPCS: 62370; 99214

== ENCOUNTER → 2023-06-20 10:49 | Outpatient (BNVA) | payer MEDICARE, MEDICAID, SELFPAY | PROVIDERS: PCP Internal Medicine; Visit Provider Anesthesiology | DX: Z45.1 Encounter for adjustment and management of infusion pump (principal); F11.20 Opioid dependence, uncomplicated; M16.11 Unilateral primary osteoarthritis, right hip; M96.1 Postlaminectomy syndrome, not elsewhere classified; M51.36 Other intervertebral disc degeneration, lumbar region; M47.816 Spondylosis without myelopathy or radiculopathy, lumbar region; M54.16 Radiculopathy, lumbar region; M16.0 Bilateral primary osteoarthritis of hip; M25.551 Pain in right hip; M25.552 Pain in left hip; M54.50 Low back pain, unspecified; G89.29 Other chronic pain; D69.6 Thrombocytopenia, unspecified; Z98.1 Arthrodesis status | CPT/HCPCS: 62370; 99212 ==

== ENCOUNTER 2023-06-27 13:16 | Outpatient (AMB) | payer MEDICARE, MEDICAID, SELFPAY ==
--- NOTE | 2023-06-27 13:16 | MHC.OFFVISWM ---
Intake VS Expanded 06/27/23 13:18 Height 5 ft 4 in Weight 172 lb BMI 29.5 Intake Visit Reasons: PO LSG 10/24/21 Allergies bupropion [From Wellbutrin] Allergy (Intermediate, Verified 05/20/23 10:31) Itching influenza virus vaccine, specific [FLU VACCINE] Allergy (Unknown, Verified 05/20/23 10:31) RASH latex Allergy (Unknown, Verified 05/20/23 10:31) Rash Sulfa (Sulfonamide Antibiotics) Allergy (Unknown, Verified 05/20/23 10:31) UNKNOWN, itch, itching baclofen Allergy (Verified 05/20/23 10:31) twitching, falling down Medication List - Last Reconciled 06/27/23 by ALON Inman acetaminophen ER (Arthritis Pain Relief (acetaminophen) ER) 650 mg PO Q8H PRN albuterol sulfate 2.5 mg (3 mL) inhalation Q6H PRN albuterol sulfate 90 mcg/actuation (Ventolin HFA) 2 puffs PO QID PRN budesonide-formoterol 160-4.5 mcg/actuation (Symbicort) 2 puffs inhalation Q12H buprenorphine-naloxone 8-2 mg 1 strip sublingual BID clotrimazole 1% 1 appl topical BID dextroamphetamine-amphetamine 30 mg 30 mg PO BID@0900,1300 diclofenac sodium 1% 2 grams topical QID PRN divalproex ER 1,500 mg PO QPM Dulera 200-5 mcg/actuation (mometasone-formoterol) 2 puffs inhalation Q12H NS gabapentin 800 mg PO TID 30 days linaclotide (Linzess) 290 mcg PO QAM pantoprazole 40 mg PO DAILY risperidone (Risperdal) 2 mg PO BEDTIME rosuvastatin 5 mg PO DAILY sertraline 100 mg PO QAM trazodone 3 tabs PO BEDTIME HPI HPI Comments History of Present Illness Details This?is a?63?yo female who is s/p LSG 10/24/2022. Presents for 20 month post op visit. Weight at last visit on 05/21/23 was 178 pounds, weight today is 172 pounds, representing a 6 pound weight loss with a BMI today of 29.5.? No complaints of nausea, emesis, abdominal pain or reflux, or constipation. Present meal plan includes: 3 Celebrate shakes with 1 scoop in 8oz UAM each, plus 2 Atkins protein bars. Exercise routine includes: mobility is difficult, walks with a walker Pt reports problems with excess skin of abdomen. She continues to have difficulty with rashes, not well controlled by clotrimazole. If sweat or moisture collects in the skin fold it becomes very malodorous, has to wash frequently. Very uncomfortable and painful even when walking due to the heaviness of the skin. She also complains of problems of excess skin of arms. She develops irritation from excess skin rubbing against her body. Also causes discomfort due to heaviness. [facility] Medical History (Updated 04/10/23 @ 12:41 by Melissa Topete MD) Impaired fasting glucose Smoker unmotivated to quit Cough present for greater than 3 weeks Hair thinning Prolapse of female pelvic organs Bilateral finger arthralgia Coccyx pain Diabetes mellitus with diabetic neuropathy, without long-term current use of insulin Pain or burning when swallowing Heartburn Hepatomegaly Osteoarthritis, hip, bilateral Bilateral hip pain Lumbar spondylosis Bilateral groin pain Depressive 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 History of pneumonia Vitamin B12 deficiency Vitamin D deficiency Insomnia ADHD Community acquired bilateral lower lobe pneumonia Injury of left heel Cough Cigarette smoker motivated to quit Dysuria Left shoulder pain Dyslipidemia Low back pain Lumbar degenerative disc disease Mixed incontinence urge and stress TEA on CPAP Opiate addiction Depression COPD (chronic obstructive pulmonary disease) Surgical History H/O neck surgery Status post sleeve gastrectomy History of lumbar spinal fusion H/O colonoscopy Hx of cholecystectomy History of partial hysterectomy H/O tubal ligation History of lumbar fusion Family History Father Aneurysm Other No family history of cancer Social History Household Members: Children Household Members Other:: daughter Housing: House Are you a primary residential care officer to a significant other at home: No Do you presently have visiting nurse or other home services: No Alcohol intake: never Comment: NOT INDICATED Patient Tobacco Use Status: Current everyday Tobacco user Tobacco use type: Cigarette Cigarettes Per Day: 10 e-Cigarette/Vaping Use: Currently Using Second Hand Smoke Exposure: Yes service: No Current occupational status: unemployed Cognitive needs: Yes (walker) Hearing needs: No Vision needs: Yes (glasses) Assessment & Plan Assessment & Plan (1) Overweight: Code(s): E66.3 - Overweight (2) Status post sleeve gastrectomy: Comment: 10/24/2021 Code(s): Z90.3 - Acquired absence of stomach [part of] (3) Excess skin: Code(s): L98.7 - Excessive and redundant skin and subcutaneous tissue Plan Pt does not want VNA services, feels comfortable doing dressing changes with help of at home. Goal weight of 168lbs by next visit. If she is hungry can have half a protein bar or half scoop shake. Again discussed the need to quit smoking for 1 month prior to surgery with weekly nicotine testing. Pt needs labs done by next visit. Expected postop course discussed. Pt continues to experience painful rashes of excess skin of abdomen. Continue clotrimazole for now, however she would benefit from definitive treatment of panniculectomy. RTC 6 weeks for in person visit. Patient is overweight and is not considered stable at this time. I spent a total of 30 minutes reviewing/updating records, examining the patient and counseling the patient on weight management as detailed above. Telehealth Telehealth Location of provider rendering services: practice address Location of patient: address on file Patient Identification confirmed using: Name, : Yes Telehealth method: voice only Patient verbally consented to treatment: Yes Patient verbally consented to billing insurance company: Yes Patient informed of any privacy concerns related to visit: Yes Minutes spent on Phone/Video with Pt.: 15 Coding Level of Care Code Tele Est Pt Level 4 (30751) Diagnoses Overweight E66.3 Status post sleeve gastrectomy Z90.3 Excess skin L98.7
[2023-06-27 13:18] VITALS: BMI 29.5
== END 2023-06-27 13:33 | disposition home or self-care (01) ==
LOC: HO.HBS 13:17
PROVIDERS: PCP Internal Medicine; Visit Provider Physician Assistant Surgical
DX: E66.3 Overweight (principal); Z68.29 Body mass index [BMI] 29.0-29.9, adult; Z90.3 Acquired absence of stomach [part of]; L98.7 Excessive and redundant skin and subcutaneous tissue
CPT/HCPCS: 99442

== ENCOUNTER → 2023-06-27 13:16 | Outpatient (BNVA) | payer MEDICARE, MEDICAID, SELFPAY | PROVIDERS: PCP Internal Medicine; Visit Provider Physician Assistant Surgical ==

== ENCOUNTER 2023-06-27 14:48 | Outpatient (REF) | payer MEDICARE, MEDICAID, SELFPAY ==
[2023-06-27 16:29] LABS: Alanine Aminotransferase 9 U/L (0-31); Aspartate Amino Transferase 15 U/L (5-31); Cholesterol 306 mg/dL (<200); Estimated Average Glucose 114 mg/dL; Glucose Fasting 96 mg/dL (60-99); HDL Cholesterol 46 mg/dL (>40); Hemoglobin A1c % 5.6 % (<6.0); LDL Cholesterol Calculated 219 mg/dL (<100); Triglycerides 205 mg/dL (<150)
== END 2023-06-27 14:49 | disposition home or self-care (01) ==
LOC: HO.HMGCLDS 14:48
PROVIDERS: PCP Internal Medicine; Visit Provider Internal Medicine
DX: E78.5 Hyperlipidemia, unspecified (principal); R73.01 Impaired fasting glucose
CPT/HCPCS: 36415; 80061; 82947; 83036; 84450; 84460

== ENCOUNTER 2023-06-28 10:51 | Outpatient (AMB) | payer MEDICARE, MEDICAID, SELFPAY ==
[2023-06-28 10:54] VITALS: BP 130/80; PULSE 77; O2SAT 99; BMI 29.5
--- NOTE | 2023-06-28 10:54 | MHC.PC.OV ---
Vital Signs 06/28/23 10:54 Height 5 ft 4 in Weight 172 lb BMI 29.5 BP 130/80 Blood Pressure Location Lt brachial Position Sitting Pulse 77 Pulse Source Pulse Oximeter Pulse Oximetry (%) 99 Oxygen Delivery Method Room Air Intake Visit Reasons: 3 Month F/U Intake Note: Pt is here today for a follow up visit. Pt states that she is going through menopause and she sweats a lot. Allergies bupropion [From Wellbutrin] Allergy (Intermediate, Verified 06/28/23 11:15) Itching influenza virus vaccine, specific [FLU VACCINE] Allergy (Unknown, Verified 06/28/23 11:15) RASH latex Allergy (Unknown, Verified 06/28/23 11:15) Rash Sulfa (Sulfonamide Antibiotics) Allergy (Unknown, Verified 06/28/23 11:15) UNKNOWN, itch, itching baclofen Allergy (Verified 06/28/23 11:15) twitching, falling down Medication List - Last Reconciled 06/28/23 by Melissa Topete MD acetaminophen ER (Arthritis Pain Relief (acetaminophen) ER) 650 mg PO Q8H PRN albuterol sulfate 2.5 mg (3 mL) inhalation Q6H PRN albuterol sulfate 90 mcg/actuation (Ventolin HFA) 2 puffs PO QID PRN budesonide-formoterol 160-4.5 mcg/actuation (Symbicort) 2 puffs inhalation Q12H buprenorphine-naloxone 8-2 mg 1 strip sublingual BID clotrimazole 1% 1 appl topical BID dextroamphetamine-amphetamine 10 mg 1 tab PO DAILY dextroamphetamine-amphetamine 30 mg 30 mg PO BID@0900,1300 diclofenac sodium 1% 2 grams topical QID PRN divalproex ER 1,500 mg PO QPM doxepin 50 mg PO BEDTIME Dulera 200-5 mcg/actuation (mometasone-formoterol) 2 puffs inhalation Q12H NS gabapentin 800 mg PO TID 30 days linaclotide (Linzess) 290 mcg PO QAM pantoprazole 40 mg PO DAILY risperidone (Risperdal) 2 mg PO BEDTIME rosuvastatin 5 mg PO DAILY rosuvastatin 5 mg PO DAILY sertraline 100 mg PO QAM trazodone 3 tabs PO BEDTIME Veozah (fezolinetant) 45 mg PO DAILY NS Tobacco use date assessed: 06/28/23 Dental Screening Dental Screen Date: 06/28/23 Did you have a dental visit in the last 12 months?: Yes Did you have a dental problem in the last 6 months where you did not have access to dental care?: No Was dental information given to patient?: Patient has dentist HPI 3 Month F/U HPI Details 63-year-old lady here today for follow-up on her lipids. She had recent fasting labs done which showed marked elevation in her LDL cholesterol and triglycerides. Patient states that she has not really been eating a lot but has been eat drinking a lot of protein shakes and smoothies. No exercise at all due to her back pain. She also has been complaining of frequent hot flashes, accompanied by mood swings, which has been present now for the last several months. It has been interfering with her sleep, unable to rest due to frequent awakenings. She has tried [id number] medications for hot flashes all of which has not been helping. Would like to try the new medication for treatment of hot flashes. Laboratory Tests 02/21/23 02/21/23 02/21/23 09:10 09:10 09:10 Fasting Glucose 105 H Estimat Average Gl ucose 105 Hemoglobin A1c % 5.3 Calcium AST ALT Triglycerides 111 Cholesterol 252 H LDL Cholesterol, C alc HDL Cholesterol 02/21/23 02/21/23 06/27/23 09:10 09:10 14:54 Fasting Glucose 96 Estimat Average Gl ucose 114 Hemoglobin A1c % Calcium 9.5 D AST ALT Triglycerides Cholesterol LDL Cholesterol, C alc 173 H HDL Cholesterol 57 06/27/23 06/27/23 06/27/23 14:54 14:54 14:54 Fasting Glucose Estimat Average Gl ucose Hemoglobin A1c % 5.6 Calcium AST ALT Triglycerides 205 H Cholesterol 306 H LDL Cholesterol, C alc 219 H HDL Cholesterol 06/27/23 14:54 Fasting Glucose Estimat Average Gl ucose Hemoglobin A1c % Calcium AST 15 ALT 9 Triglycerides Cholesterol LDL Cholesterol, C alc HDL Cholesterol 46 [facility] Medical History (Updated 06/28/23 @ 11:12 by Melissa Topete MD) Vasomotor symptoms due to menopause Impaired fasting glucose Smoker unmotivated to quit Cough present for greater than 3 weeks Hair thinning Prolapse of female pelvic organs Bilateral finger arthralgia Coccyx pain Diabetes mellitus with diabetic neuropathy, without long-term current use of insulin Pain or burning when swallowing Heartburn Hepatomegaly Osteoarthritis, hip, bilateral Bilateral hip pain Lumbar spondylosis Bilateral groin pain Depressive 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 History of pneumonia Vitamin B12 deficiency Vitamin D deficiency Insomnia ADHD Community acquired bilateral lower lobe pneumonia Injury of left heel Cough Cigarette smoker motivated to quit Dysuria Left shoulder pain Dyslipidemia Low back pain Lumbar degenerative disc disease Mixed incontinence urge and stress TEA on CPAP Opiate addiction Depression COPD (chronic obstructive pulmonary disease) Surgical History H/O neck surgery Status post sleeve gastrectomy History of lumbar spinal fusion H/O colonoscopy Hx of cholecystectomy History of partial hysterectomy H/O tubal ligation History of lumbar fusion Family History Father Aneurysm Other No family history of cancer Social History Household Members: Children Household Members Other:: daughter Housing: House Are you a primary professional healthcare representative to a significant other at home: No Do you presently have visiting nurse or other home services: No Alcohol intake: never Comment: NOT INDICATED Patient Tobacco Use Status: Current everyday Tobacco user Tobacco use type: Cigarette Cigarettes Per Day: 10 e-Cigarette/Vaping Use: Currently Using Second Hand Smoke Exposure: Yes service: No Current occupational status: unemployed Cognitive needs: Yes (walker) Hearing needs: No Vision needs: Yes (glasses) Questionnaire PHQ-9 Over the last 2 weeks, how often have you been bothered by any of the following problems? 1. Little interest or pleasure in doing things: not at all 2. Feeling down, depressed, or hopeless: not at all 3. Trouble falling or staying asleep, or sleeping too much: not at all 4. Feeling tired or having little energy: several days 5. Poor appetite or overeating: several days 6. Feeling bad about yourself - or that you are a failure or have let yourself or your family down: not at all 7. Trouble concentrating on things, such as reading the newspaper or watching television: several days 8. Moving or speaking so slowly that other people could have noticed. Or the opposite - being so fidgety or restless that you have been moving around a lot more than usual: not at all 9. Thoughts that you would be better off or of hurting yourself in some way: not at all Total score: 3 Depression Screening Interpretation: Negative Depression Screening Done: Yes 16288 - PHQ-9 Billing: Yes Source: Developed by Drs. Mark Cota, Alva Ghotra, Adis Kramer and colleagues, with an educational adeel from [employer]. Thrive Questionnaire Date Thrive assessed: 06/28/23 I am a: Patient What is your living situation today?: I have a steady place to live Within the past 12 months, did the food you bought not last and you didn't have the money to get more?: Never true Within the past 12 months, did you worry whether your food would run out before you got money to buy more?: Never true Do you have trouble paying for medicines?: No Do you have trouble getting transportation to medical appointments?: No Do you have trouble paying your heating and electricity bill?: No Do you have trouble taking care of your child, family member or friend?: No Do you have trouble with day-to-day activities such as bathing, preparing meals, shopping, managing finances, etc.?: No Are you currently unemployed and looking for a job?: No Are you interested in more education?: No Please select the resources that you would like help with: None THRIVE Score: 0 AUDIT C Alcohol Use Questionnaire (AUDIT-C) 1. How often do you have a drink containing alcohol?: Never 3. How often do you have six or more drinks on one occasion?: Never Total Score: 0 AMANDA-7 AMB Questionnaire AMANDA-7 Date AMANDA - 7 assessed: 06/28/23 Feeling nervous, anxious, or on edge: 0 = Not at all Not being able to stop or control worryin = Not at all Worrying too much about different things: 0 = Not at all Trouble relaxin = Not at all Being so restless that it is hard to sit still: 0 = Not at all Becoming easily annoyed or irritable: 0 = Not at all Feeling afraid as if something awful might happen: 0 = Not at all Total AMANDA-7 score (0-4 normal; 5-9 mild; 10-14 moderate; 15-21 severe): 0 Source: Developed by Drs. Mark Cota, Alva Ghotra, Adis Kramer and colleagues, with an educational adeel from [employer]. MAANDA-7 Assessment Billing AMANDA-7 Assessment Tool: AMANDA-7 Assessment 00934 Review of Systems Const Reports as per HPI and Reports fatigue ENT Reports no additional complaints Card Denies irregular heart rhythm and Denies lightheadedness Resp Denies chest congestion and Denies cough GI Denies abdominal pain, Reports constipation and Reports heartburn Reports no additional complaints Endo Reports fatigue Physical exam (Primary Care) Vital Signs: Last Vital Signs Pulse 77 06/28/23 10:54 BP 130/80 06/28/23 10:54 Pulse Ox 99 06/28/23 10:54 Oxygen Delivery Method Room Air 06/28/23 10:54 BMI result Body Mass Index 29.5 Tobacco/Smoking Status: Tobacco use Status Tobacco use date assessed 06/28/23 06/28/23 11:00 Patient Tobacco Use Status Current everyday Tobacco 06/28/23 11:00 Tobacco use type Cigarette 06/28/23 11:00 e-Cigarette/Vaping Use Currently Using 06/28/23 11:00 PHQ-9: PHQ-9 Score PHQ-9: Total score 3 06/28/23 11:17 Depression Screening Interpretation: Negative Thrive Assessment: Date of Thrive Assessment Date Thrive assessed 06/28/23 06/28/23 11:01 HENMT Mouth: Normal oral and palatal mucosa present and moist mucous membranes Neck Neck: Yes full ROM, Yes no lymphadenopathy and Yes supple Resp Effort & Inspection: normal respiratory effort and able to speak in complete sentences Auscultation: clear to auscultation bilaterally Cardio Other: S1-S2 present regular rate and rhythm GI Other: Normal bowel sounds soft, nontender with no mass palpated Assessment and Plan Assessment & Plan (1) Dyslipidemia: Code(s): E78.5 - Hyperlipidemia, unspecified Plan: Latest fasting labs reviewed with patient which showed marked elevation in her total cholesterol, lipids and triglycerides. Started her on rosuvastatin 5 mg per tablet to take 1 tablet once a day. Avoid any alcohol intake when taking this medication. Stressed importance of following a low-cholesterol diet and get as much exercise as you can. Will repeat another fasting lipid panel liver enzymes in 3 months (2) Vasomotor symptoms due to menopause: Code(s): N95.1 - Menopausal and female climacteric states Plan: Prescription was sent for Veozah at 45 mg per tablet to take once a day. Return to the clinic for follow-up in 3 month Orders: Orders Alanine Aminotransferase 09/21/23 E78.5 - Hyperlipidemia, unspecified Aspartate Amino Transferase 09/21/23 E78.5 - Hyperlipidemia, unspecified Lipid Panel 09/21/23 E78.5 - Hyperlipidemia, unspecified Medications: New Veozah (fezolinetant) 45 mg PO DAILY 30 tabs 2RF NS N95.1 - Menopausal and female climacteric states rosuvastatin 5 mg PO DAILY 30 tabs 5RF Coding Level of Care Code Est Pt Level 4 (15416) Diagnoses Dyslipidemia E78.5 Vasomotor symptoms due to menopause N95.1 Additional Codes AMANDA-7 Assessment Billing - AMANDA-7 Assessment Tool: AMANDA-7 Assessment [id number] ([id number])
== END 2023-06-28 11:47 | disposition home or self-care (01) ==
PROVIDERS: PCP Internal Medicine; Visit Provider Internal Medicine
DX: E78.5 Hyperlipidemia, unspecified (principal); N95.1 Menopausal and female climacteric states
CPT/HCPCS: 99214

== ENCOUNTER 2023-07-16 09:08 | Emergency (ER) | payer MEDICARE, MEDICAID, SELFPAY ==
--- NOTE | ~2023-07-16 | XR_ITS ---
EXAMINATION: THORACIC SPINE, LUMBAR SPINE CLINICAL INFORMATION: Pain without trauma COMPARISON: Lumbar spine 11/12/2022, MRI lumbar spine 11/19/2022 TECHNIQUE: 3 views thoracic spine, 3 views lumbar spine FINDINGS: Degenerative changes are seen throughout the thoracic spine with disc space narrowing at most levels along with endplate changes with sclerosis and osteophytes. Vertebral body heights are well-maintained. Partial visualization of ACDF hardware. There is been posterior fixation with pedicular screws at L4-L5. Interbody screws are present at L4-L5 and L5-S1. Marked degenerative changes are present at most other levels with most marked disc space narrowing at L2-L3 and L3-L4 with associated endplate sclerosis and large osteophytes. Surgical clips are noted in the right upper and left upper quadrants as well as in the pelvis. A mechanical pump is present overlying the left buttocks. Some mild sclerotic changes are present in the SI joints. Appearances are similar to 11/12/2022. XR/XR lumbar spine 2-3V IMPRESSION: Degenerative changes throughout the thoracic and lumbar spine as described above.
--- NOTE | ~2023-07-16 | XR_ITS ---
EXAMINATION: XR CERVICAL SPINE CLINICAL INFORMATION: Pain. COMPARISON: Previous cervical spine x-ray July 2020. TECHNIQUE: 3 views of the cervical spine were obtained. FINDINGS: Bone alignment is normal. No fracture or dislocation. There is fusion hardware with intervertebral body disc spacer at C4-C5. There is ACDF at C5-C6 and C6-C7 with anterior plate and screws. There appears to be bony ankylosis at these disc spaces. Surgical hardware is intact. There is osteopenia of the C5-C7 vertebral bodies. There is mild degenerative spondylosis at C3-C4 and C7-T1. Prevertebral soft tissues are normal. Visualized lung apices are clear. XR/XR cervical spine 3V IMPRESSION: Postsurgical changes from C4-C5 to C6-C7 with solid arthrodesis radiographically. Osteopenia of the C5-C7 vertebral bodies.
--- NOTE | ~2023-07-16 | XR_ITS ---
EXAMINATION: THORACIC SPINE, LUMBAR SPINE CLINICAL INFORMATION: Pain without trauma COMPARISON: Lumbar spine 11/12/2022, MRI lumbar spine 11/19/2022 TECHNIQUE: 3 views thoracic spine, 3 views lumbar spine FINDINGS: Degenerative changes are seen throughout the thoracic spine with disc space narrowing at most levels along with endplate changes with sclerosis and osteophytes. Vertebral body heights are well-maintained. Partial visualization of ACDF hardware. There is been posterior fixation with pedicular screws at L4-L5. Interbody screws are present at L4-L5 and L5-S1. Marked degenerative changes are present at most other levels with most marked disc space narrowing at L2-L3 and L3-L4 with associated endplate sclerosis and large osteophytes. Surgical clips are noted in the right upper and left upper quadrants as well as in the pelvis. A mechanical pump is present overlying the left buttocks. Some mild sclerotic changes are present in the SI joints. Appearances are similar to 11/12/2022. XR/XR thoracic spine 3V IMPRESSION: Degenerative changes throughout the thoracic and lumbar spine as described above.
[2023-07-16 09:10] VITALS: BP 135/61; PULSE 88; RESP 18; TEMP 37; O2SAT 100; BMI 31.7
[2023-07-16] MEDS: HYDROcodone Bit/Acetam 5/325 TABLET 1 TAB PO (11:03)
[2023-07-16 11:04] LABS: Influenza A PCR NEGATIVE (Negative); Influenza B PCR NEGATIVE (Negative); Resp Syncy Virus RNA Qual PCR NEGATIVE (Negative); SARS COV2 PCR INHOUSE NEGATIVE (Negative)
--- NOTE | 2023-07-16 11:25 | ED_ITS ---
HPI - General Adult General Chief complaint: General Medical Stated complaint: Body aches 2 weeks Time Seen by Provider: 07/16/23 09:57 Source: patient Mode of arrival: ambulatory Limitations: no limitations History of Present Illness HPI narrative: This is a 63-year-old female, with a history of chronic back pain, with a history of dyslipidemia, TEA, depression, and COPD, who presents emergency department with complaints of acute on chronic back pain x1 year. Patient reports that she has had chronic body pain for the last year, and has been going to her paperhanger and painter however states that nothing she is taking or prescribed is helping her pain. She reports that she has neck pain, back pain, bilateral leg pain. She states that she has not had any new trauma, injury or falls. She has a pain pump which gives her clonidine which she states has not been helping her with her pain. She denies any fevers, chills, chest pain, shortness on breath, abdominal pain, nausea, vomiting or diarrhea. She endorses some bilateral leg weakness however states that this is chronic. She also states burning sensation in her legs. She states that she has gone to physical therapy as well. She states that she has had no urinary symptoms. No urinary or bowel retention or incontinence. No saddle anesthesia. No other complaints or concerns at this time. MD complaint: Chronic pain Onset (ago): year(s) Radiation: back Severity: moderate Quality: burning and aching Pain Consistency: constant Relieving factors: none Exacerbating factors: none Associated symptoms: denies other symptoms Treatments prior to arrival: none Related Data Home Medications Medication Instructions Recorded Confirmed buprenorphine 8 mg-naloxone 2 mg 1 strip sublingual BID 09/18/21 06/27/23 sublingual film dextroamphetamine-amphetamine 30 30 mg PO BID@0900,1300 09/18/21 06/27/23 mg tablet risperidone 2 mg tablet (Risperdal) 2 mg PO BEDTIME 09/18/21 06/27/23 trazodone 100 mg tablet 3 tab PO BEDTIME 03/05/22 06/27/23 sertraline 100 mg tablet 100 mg PO QAM 07/31/22 06/27/23 divalproex 500 mg tablet,extended 1,500 mg PO QPM 08/13/22 06/27/23 release 24 hr dextroamphetamine-amphetamine 10 1 tab PO DAILY 06/28/23 mg tablet doxepin 50 mg capsule 50 mg PO BEDTIME 06/28/23 Previous Rx's Medication Instructions Recorded diclofenac sodium 1 % topical gel 2 g topical QID PRN pain and 08/28/22 stiffness in fingers #100 grams albuterol sulfate 2.5 mg/3 mL 2.5 mg (3 mL) inhalation Q6H PRN 08/30/22 (0.083 %) solution for nebulization shortness of breath or wheezing #90 mL pantoprazole 40 mg tablet,delayed 40 mg PO DAILY #90 tabs 10/08/22 release albuterol sulfate 90 mcg/actuation 2 puff PO QID PRN wheezing #8.5 02/24/23 aerosol inhaler (Ventolin HFA) grams acetaminophen 650 mg 650 mg PO Q8H PRN pain #60 tabs 03/07/23 tablet,extended release (Arthritis Pain Relief (acetaminophen) ER) budesonide-formoterol HFA 160 2 puff inhalation Q12H #10.2 grams 04/10/23 mcg-4.5 mcg/actuation aerosol inhaler (Symbicort) rosuvastatin 5 mg tablet 5 mg PO DAILY #30 tabs 04/10/23 Dulera 200 mcg-5 mcg/actuation HFA 2 puff inhalation Q12H #8.8 grams 04/11/23 aerosol inhaler (mometasone-formoterol) gabapentin 800 mg tablet 800 mg PO TID 30 days #90 tabs 05/30/23 linaclotide 290 mcg capsule 290 mcg PO QAM #30 caps 05/30/23 (Linzess) clotrimazole 1 % topical cream 1 appl topical BID #90 grams 06/27/23 Veozah 45 mg tablet (fezolinetant) 45 mg PO DAILY #30 tabs 06/28/23 rosuvastatin 5 mg tablet 5 mg PO DAILY #30 tabs 06/28/23 acetaminophen 650 mg 650 mg PO Q8H PRN pain #30 tabs 07/16/23 tablet,extended release (Tylenol Arthritis Pain) Allergies Allergy/AdvReac Type Severity Reaction Status Date / Time bupropion [From Wellbutrin] Allergy Intermediate Itching Verified 07/16/23 09:13 influenza virus vaccine, Allergy Unknown RASH Verified 07/16/23 09:13 specific [FLU VACCINE] latex Allergy Unknown Rash Verified 07/16/23 09:13 Sulfa (Sulfonamide Allergy Unknown UNKNOWN, Verified 07/16/23 09:13 Antibiotics) itch, itching baclofen Allergy twitching, Verified 07/16/23 09:13 falling down Review of Systems Review of Systems: Yes all other systems are reviewed and are negative Constitutional: Constitutional: Reports as per HPI [facility] Past Medical History Medical History (Updated 07/16/23 @ 11:28 by ALON Lozano) Vasomotor symptoms due to menopause Impaired fasting glucose Smoker unmotivated to quit Cough present for greater than 3 weeks Hair thinning Prolapse of female pelvic organs Bilateral finger arthralgia Coccyx pain Diabetes mellitus with diabetic neuropathy, without long-term current use of insulin Pain or burning when swallowing Heartburn Hepatomegaly Osteoarthritis, hip, bilateral Bilateral hip pain Lumbar spondylosis Bilateral groin pain Depressive 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 History of pneumonia Vitamin B12 deficiency Vitamin D deficiency Insomnia ADHD Community acquired bilateral lower lobe pneumonia Injury of left heel Cough Cigarette smoker motivated to quit Dysuria Left shoulder pain Dyslipidemia Low back pain Lumbar degenerative disc disease Mixed incontinence urge and stress TEA on CPAP Opiate addiction Depression COPD (chronic obstructive pulmonary disease) Surgical History H/O neck surgery Status post sleeve gastrectomy History of lumbar spinal fusion H/O colonoscopy Hx of cholecystectomy History of partial hysterectomy H/O tubal ligation History of lumbar fusion Family History Family History Father Aneurysm Other No family history of cancer Social History Social History Household Members: Children Household Members Other:: daughter Housing: House Are you a primary spiritual care coordinator to a significant other at home: No Do you presently have visiting nurse or other home services: No Alcohol intake: never Comment: NOT INDICATED Patient Tobacco Use Status: Current everyday Tobacco user Tobacco use type: Cigarette Cigarettes Per Day: 10 Smoked in Last 30 Days: Yes e-Cigarette/Vaping Use: Currently Using Second Hand Smoke Exposure: Yes Use of substances other than those prescribed or required for medical reasons: No Advance Directives: Yes Advance Directives Information Provided: Yes Advance Directives on File: No service: No Current occupational status: unemployed Cognitive needs: Yes (walker) Hearing needs: No Vision needs: Yes (glasses) Physical Exam ED Vital Signs: Vital Signs - 24 hr 07/16/23 09:10 07/16/23 11:37 Temperature 98.6 F 98.6 F Pulse Rate 88 88 Respiratory Rate 18 16 Blood Pressure 135/61 135/61 Pulse Oximetry 100 100 Oxygen Delivery Method Room Air Room Air BMI result Body Mass Index 31.7 Const General: cooperative, comfortable and no acute distress Orientation/consciousness: patient oriented x3 Limitations: no limitations HENMT Head: Yes normal to inspection, Yes normocephalic and Yes atraumatic Ears: hearing grossly normal bilaterally General nose exam: Normal external nose present Face and sinus: Yes normal facial exam Mouth: Normal oral and palatal mucosa present, oropharynx normal and moist mucous membranes Throat: Yes posterior oropharynx normal Eyes General: appearance normal, both eyes and all related structures Eyelids: Yes eyelids normal Conjunctivae: conjunctivae normal Sclerae: sclerae normal Pupils: Equal, round and reactive pupils present EOM: EOMs intact bilaterally Neck Other: Mild tenderness palpation along the cervical spine, with no bony step-off or crepitus. Full range of motion. Neck: Yes normal visual inspection, Yes full ROM and Yes no lymphadenopathy Lymphatic: no lymphadenopathy noted Chest Chest palpation & inspection: normal inspection of the chest Resp Effort & Inspection: normal respiratory effort and able to speak in complete sentences Auscultation: clear to auscultation bilaterally, no crackles, no rales, no rhonchi and no wheezes Cardio Rate: regular rate Rhythm: regular rhythm Heart sounds: S1 normal heart sound present and S2 normal heart sound present GI Inspection: Yes normal to inspection General: Yes no CVA tenderness Back/Spine/Pelvis Other: No bony deformity or step-off. Patient is diffusely tender throughout her entire back without any point tenderness. No overlying erythema or rashes. Strength 5/5 in lower extremities. Distal sensation circulation intact. No calf tenderness Back: no CVA tenderness Cervical Spine: normal cervical lordosis Thoracic/Lumbar Spine: thoracic and lumbar spine normal to inspection Skin General skin exam: no rashes or lesions noted Trauma: no lacerations or abrasions Wounds: no wounds Neuro General: patient oriented x3 and moves all extremities Cranial nerves: Yes Equal, round and reactive pupils present Extrem Other: Patient has diffuse tenderness throughout bilateral legs without any point tenderness. Strength 5/5 in lower extremities, distal sensation circulation intact, no calf tenderness or pedal edema noted General: Yes normal to inspection Right upper extremity: normal to inspection Left upper extremity: normal to inspection Right lower extremity: normal to inspection Left lower extremity: normal to inspection Medications Administered Discontinued Medications Generic Name Dose Route Start Last Admin Trade Name Belem PRN Reason Stop Dose Admin Hydrocodone Bitart/Acetaminophen 1 tab 07/16/23 10:50 07/16/23 11:03 Hydrocodone Bit/Acetam 5/325 Tablet PO 07/16/23 10:51 1 tab ONCE ONE Administration Bacitracin 1 appl 07/16/23 11:25 07/16/23 11:32 Bacitracin Oint 0.9 Gm Packet TOPICAL 07/16/23 11:26 1 appl ONCE ONE Administration Protocol Medical Decision Making Medical Decision Making [facility] Narrative: This is a 63-year-old female presenting to the emergency department for evaluation of chronic body pain for the last year. On arrival, patient is well- appearing, vital signs within normal limits. She is nontoxic appearing and speaking in full sentences. Patient reports no new trauma or injury to her back or neck however states that she has not have this imaged in some time and states that every specialist who she sees is not helping her. She is currently enrolled in chronic pain care however states that they only prescribe her clonidine which is not beneficial in her opinion. 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 X-rays of her T-spine, C-spine and L-spine were performed without any acute bony abnormalities however degenerative changes and osteopenia is present. I discussed these findings with patient over the phone as she refused to stay for these results. She is medicated with Percocet in the department and was discharged on Tylenol. Educated patient to follow-up with her primary care physician paperhanger and painter for further evaluation. She understands and agrees with plan. She had no red flag back symptoms on examination, no fevers, chills, chest pain. No distal weakness. No abdominal pain, no urinary symptoms to suggest pyelonephritis or obstructive uropathy. No saddle anesthesia, urinary retention or incontinence to be concern for cauda equina syndrome. Patient stable for discharge Differential Diagnosis Differential Diagnoses: The differential diagnosis associated with the presentat ion includes See above Admission/Observation Consideration of admission/observation: Escalation of care including admission/observation considered Escalation of care including admission/observation considered however given workup today not warranted at this time. Lab Data MDM Lab Attestation statement: I reviewed the patient's lab results. Negative flu, RSV, COVID Labs: Lab Results 07/16/23 Range/Units 10:13 Influenza Type A (PCR) NEGATIVE (Negative) Influenza Type B (PCR) NEGATIVE (Negative) RSV RNA Qual (PCR) NEGATIVE (Negative) SARS-CoV-2 RNA (RT-PCR) NEGATIVE (Negative) Radiology Impression Discussion of test interpretation with radiology: I have reviewed the radiolog ist's reading. Radiologist Impression: FINDINGS: Degenerative changes are seen throughout the thoracic spine with disc space narrowing at most levels along with endplate changes with sclerosis and osteophytes. Vertebral body heights are well-maintained. Partial visualization of ACDF hardware. There is been posterior fixation with pedicular screws at L4-L5. Interbody screws are present at L4-L5 and L5-S1. Marked degenerative changes are present at most other levels with most marked disc space narrowing at L2-L3 and L3-L4 with associated endplate sclerosis and large osteophytes. Surgical clips are noted in the right upper and left upper quadrants as well as in the pelvis. A mechanical pump is present overlying the left buttocks. Some mild sclerotic changes are present in the SI joints. Appearances are similar to 11/12/2022. XR/XR thoracic spine 3V IMPRESSION: Degenerative changes throughout the thoracic and lumbar spine as described above. Dictated By: [place] MD EXAMINATION: XR CERVICAL SPINE CLINICAL INFORMATION: Pain. COMPARISON: Previous cervical spine x-ray July 2020. TECHNIQUE: 3 views of the cervical spine were obtained. FINDINGS: Bone alignment is normal. No fracture or dislocation. There is fusion hardware with intervertebral body disc spacer at C4-C5. There is ACDF at C5-C6 and C6-C7 with anterior plate and screws. There appears to be bony ankylosis at these disc spaces. Surgical hardware is intact. There is osteopenia of the C5-C7 vertebral bodies. There is mild degenerative spondylosis at C3-C4 and C7-T1. Prevertebral soft tissues are normal. Visualized lung apices are clear. XR/XR cervical spine 3V IMPRESSION: Postsurgical changes from C4-C5 to C6-C7 with solid arthrodesis radiographically. Osteopenia of the C5-C7 vertebral bodies. Dictated By: Gladys Dos Santos MD Discharge Plan Discharge Clinical Impression: Chronic pain, Abrasion, Callus of toe Patient Disposition: Home, Self-Care Instructions: Chronic Pain (ED) Additional Instructions: You were seen in the emergency department for chronic pain. Take prescribed Tylenol as directed. You need to follow-up with your paperhanger and painter to have this pain better managed. We will call you with any abnormal results from your x-rays that were performed today. You have a slight abrasion noted to your hand, keep this clean and dry. It does not appear to be infected. 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 If any new or worsening symptoms occur including but not limited to fevers, chills, chest pain or shortness of breath, please return for re-evaluation Prescriptions: New acetaminophen [Tylenol Arthritis Pain] 650 mg tablet extended release 650 mg PO Q8H PRN (Reason: pain) Qty: 30 0RF No Action diclofenac sodium 1 % gel 2 g topical QID PRN (Reason: pain and stiffness in fingers) Qty: 100 0RF pantoprazole 40 mg tablet,delayed release (DR/EC) 40 mg PO DAILY Qty: 90 3RF Rx Instructions: take one tablet half an hour before breakfast albuterol sulfate [Ventolin HFA] 90 mcg/actuation HFA aerosol inhaler 2 puff PO QID PRN (Reason: wheezing) Qty: 8.5 3RF acetaminophen [Arthritis Pain Relief (acetam)] 650 mg tablet extended release 650 mg PO Q8H PRN (Reason: pain) Qty: 60 0RF Dulera 200-5 mcg/actuation HFA aerosol inhaler 2 puff inhalation Q12H Qty: 8.8 0RF Linzess 290 mcg capsule 290 mcg PO QAM Qty: 30 4RF gabapentin 800 mg tablet 800 mg PO TID 30 Days Qty: 90 6RF clotrimazole 1 % cream 1 appl topical BID Qty: 90 3RF dextroamphetamine-amphetamine 30 mg tablet 30 mg PO BID@0900,1300 risperidone [Risperdal] 2 mg tablet 2 mg PO BEDTIME buprenorphine-naloxone 8-2 mg film 1 strip sublingual BID trazodone 100 mg tablet 3 tab PO BEDTIME albuterol sulfate 2.5 mg /3 mL (0.083 %) solution for nebulization 2.5 mg inhalation Q6H PRN (Reason: shortness of breath or wheezing) Qty: 90 1RF budesonide-formoterol [Symbicort] 160-4.5 mcg/actuation HFA aerosol inhaler 2 puff inhalation Q12H Qty: 10.2 3RF rosuvastatin 5 mg tablet 5 mg PO DAILY Qty: 30 4RF dextroamphetamine-amphetamine 10 mg tablet 1 tab PO DAILY doxepin 50 mg capsule 50 mg PO BEDTIME Veozah 45 mg tablet 45 mg PO DAILY Qty: 30 2RF rosuvastatin 5 mg tablet 5 mg PO DAILY Qty: 30 5RF sertraline 100 mg tablet 100 mg PO QAM divalproex 500 mg tablet extended release 24 hr 1,500 mg PO QPM Referrals: Chon Salguero MD [Physician] - Interventions: ED Discharge Assessment Last Done: 07/16/23 11:37 Discharge Date/Time: 07/16/23 11:37
[2023-07-16] MEDS: Bacitracin Oint 0.9 GM PACKET 1 APPL TOPICAL (11:32)
[2023-07-16 11:37] VITALS: BP 135/61; PULSE 88; RESP 16; TEMP 37; O2SAT 100
--- NOTE | 2023-07-16 11:37 | PC.NURSE ---
per pa order wrapped abrasion to hand and applied bacitracin. no distress.
== END 2023-07-16 11:37 | disposition home or self-care (01) ==
PROVIDERS: Physician Assistant; Emergency Provider Emergency Medicine; PCP Internal Medicine
DX: L84 Corns and callosities (principal); M79.10 Myalgia, unspecified site; M54.50 Low back pain, unspecified; G47.33 Obstructive sleep apnea (adult) (pediatric); M54.2 Cervicalgia; M79.605 Pain in left leg; M79.604 Pain in right leg; F17.200 Nicotine dependence, unspecified, uncomplicated; Z11.52 Encounter for screening for COVID-19; Z20.822 Contact with and (suspected) exposure to COVID-19; Z79.899 Other long term (current) drug therapy
CPT/HCPCS: 0241U; 72040; 72072; 72100; 99283; 99284

== ENCOUNTER 2023-08-07 15:41 | Outpatient (AMB) | payer MEDICARE, MEDICAID, SELFPAY ==
--- NOTE | 2023-08-07 15:46 | A.OFFVIS_ITS ---
Intake Vital Signs 08/07/23 16:27 Height 5 ft 3 in Weight 180 lb 2 oz BMI 31.9 BP 128/62 Blood Pressure Location Lt brachial Position Sitting Respiration 14 Pulse 83 Pulse Source Pulse Oximeter Pulse Oximetry (%) 98 Oxygen Delivery Method Room Air Intake Visit Reasons: ITDD REFILL Intake Note: Patient comes in for intrathecal medication refill. Reports pain 01/29. Allergies bupropion [From Wellbutrin] Allergy (Intermediate, Verified 08/07/23 16:26) Itching influenza virus vaccine, specific [FLU VACCINE] Allergy (Unknown, Verified 08/07/23 16:26) RASH latex Allergy (Unknown, Verified 08/07/23 16:26) Rash Sulfa (Sulfonamide Antibiotics) Allergy (Unknown, Verified 08/07/23 16:26) UNKNOWN, itch, itching baclofen Allergy (Verified 08/07/23 16:26) twitching, falling down HPI HPI Comments History of Present Illness Details Justa is here today for the refill of the intrathecal pain pump. She denies side effects on clonidine. She admits that clonidine PTM dose gives her some sensible pain relief. She requests me to increase number of the PTM doses from 3 doses in 24 hours to 6 doses every 4 hours in 24 hours previous magnitude of the dose. She is still trying to find out whether Prialt will be affordable for her with discount villafana from [facility]. However with new information about clonidine effective for her pain control and so far absence of side effects I would like to escalate clonidine 1st. I will increase concentration of clonidine next time threefold to 300 micro g per mL. I also will increase doses of the PTM clonidine her next refill will be scheduled on 08/23/2023 or before that date. Prior: results of the trial of intrathecal drug delivery system pain pump. She reported 2 days of 50% pain reduction. She reported that her activities of daily living improved, her mobility remain the same mostly on the account of right hip pain. She had significant right hip arthritis. She received intra- articular hip injections in the past with no result. She requests me to send her for orthopedic surgery consult in relation to THR on the left. As of her pain pump she would like me to schedule her for implantation of intrathecal drug delivery system pain pump. Risks and benefits were carefully explained to the patient. She does not want to continue trialing. She requests me to prescribe her motorized scooter to improve her mobility. I will issue prescription to her on paper. She will bring it to [facility]. She is suffering from postlaminectomy syndrome. She has pain in the lower back with minimal radiation bilaterally. She reports that she had 4 surgeries on her lumbar spine on her x-ray of the lumbar spine there is intradiscal hardware at L5-S1 interspace as well as L4-5 interspace and there is also transpedicular screws and rods fusing L4-5 vertebra as. I send her to MRI of the lumbar spine results of which dictated as below. She has multiple changes in the MRI specially above the level of her fusion. She has reversal of spinal lordosis. She has kissing osteophytes of the L1 through L3 and into L4 lumbar vertebra as. Those are most seen on the x-ray which was done for her as well. She has Modic type 1 changes in upper lumbar vertebras. She has minimal facet arthritis and ligamentum flavum thickening. There is no spinal canal or foraminal stenosis on any levels. Therefore I think that this patient is suffering from postlaminectomy syndrome. I would like to consider neuromodulation for her including pain pump and spinal cord stimulator. She past psych evaluation. She has negative about spinal cord stimulation and insisted on intrathecal drug delivery system pain pump. Also there is significant Modic changes which could be addressed with intracept procedure. All this options were again given to the patient. She would like to proceed with bupivacaine pain pump. The patient after consideration decided that she wants to go for the pain pump. She adamantly refused to try spinal cord stimulator. She said that she had spinal cord stimulator in the past and it did not work for her. I offered her also intrasept procedure but she adamantly refused to go for intracept as well. She is on Suboxone for OUD. Risks and benefits of the procedure were explained today to the patient. The patient will be scheduled for trial. [facility] Medical History (Updated 07/18/23 @ 05:32 by Background Daemon) Vasomotor symptoms due to menopause Impaired fasting glucose Smoker unmotivated to quit Cough present for greater than 3 weeks Hair thinning Prolapse of female pelvic organs Bilateral finger arthralgia Coccyx pain Diabetes mellitus with diabetic neuropathy, without long-term current use of insulin Pain or burning when swallowing Heartburn Hepatomegaly Osteoarthritis, hip, bilateral Bilateral hip pain Lumbar spondylosis Bilateral groin pain Depressive 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 History of pneumonia Vitamin B12 deficiency Vitamin D deficiency Insomnia ADHD Community acquired bilateral lower lobe pneumonia Injury of left heel Cough Cigarette smoker motivated to quit Dysuria Left shoulder pain Dyslipidemia Low back pain Lumbar degenerative disc disease Mixed incontinence urge and stress TEA on CPAP Opiate addiction Depression COPD (chronic obstructive pulmonary disease) Surgical History H/O neck surgery Status post sleeve gastrectomy History of lumbar spinal fusion H/O colonoscopy Hx of cholecystectomy History of partial hysterectomy H/O tubal ligation History of lumbar fusion Family History Father Aneurysm Other No family history of cancer Social History Household Members: Children Household Members Other:: daughter Housing: House Are you a primary career development coordinator to a significant other at home: No Do you presently have visiting nurse or other home services: No Alcohol intake: never Comment: NOT INDICATED Patient Tobacco Use Status: Current everyday Tobacco user Tobacco use type: Cigarette Cigarettes Per Day: 10 e-Cigarette/Vaping Use: Currently Using Second Hand Smoke Exposure: Yes service: No Current occupational status: unemployed Cognitive needs: Yes (walker) Hearing needs: No Vision needs: Yes (glasses) Review of Systems Const All systems reviewed & are unremarkable except as noted in HPI and below Physical Exam Vital Signs: Last Vital Signs Pulse 83 08/07/23 16:27 Resp 14 08/07/23 16:27 BP 128/62 08/07/23 16:27 Pulse Ox 98 08/07/23 16:27 Oxygen Delivery Method Room Air 08/07/23 16:27 BMI result Body Mass Index 31.9 Const General: cooperative, alert, awake, in distress (due to pain) mild and moderate and anxious Nutritional Appearance: obese morbidly obese Limitations: ambulation with walker HEENT Head: Yes normal to inspection, Yes normocephalic and No occipital foramen tenderness Ears: hearing grossly normal bilaterally and external ears normal Face and sinus: Yes normal facial exam and Yes face symmetric Eyes General: appearance normal, both eyes and all related structures Visual Evangelista: normal visual evangelista by confrontation EOM: EOMs intact bilaterally Neck Neck: Yes normal visual inspection, Yes full ROM, Yes no lymphadenopathy, Yes supple, No anterior neck swelling and Yes no JVD Chest Chest palpation & inspection: normal inspection of the chest Resp Effort & Inspection: normal respiratory effort, able to speak in complete sentences, no audible wheezes, no cough, no respiratory distress and symmetric chest movement Cardio Jugular venous distension: no JVD Bruits: no carotid bruits Peripheral pulses: radial pulses present, posterior tibial pulses present and dorsalis pedis present GI Inspection: Yes normal to inspection, No distended, Yes Abdominal panniculus present and Yes obesity Palpation (GI): Soft to palpation and nontender General: Yes no CVA tenderness Back/Spine/Pelvis Other: Limited exam due to significant back and groin pain with movements or walking, able to stand on heels and tip toes with moderate difficulty due to pain. Can flex forward up to 50-60 degrees and extend to 5-10 degrees before experiencing moderate lumbar pain. Facet loading positive bilaterally, ROM limited to pain. Demonstrates 4/5 strength of quadriceps bilaterally as well as flexion/dorsiflexion of bilateral feet against resistance. 2+ pedal pulses bilaterally. Straight leg rise with dorsiflexion positive on the left. Significant groin pain with bilateral internal and external hip rotations. Antalgic gate, ambulates slowly with walker. Lateral and medial left hip rotation causes significant groin discomfort. The patient also reports groin pain with walking Back: no CVA tenderness Cervical Spine: cervical ROM normal Thoracic/Lumbar Spine: thoracic and lumbar spine normal to inspection, Thoracic/lumbar spine scar(s), Lasegue's sign positive, pain with thoraco-lumbar ROM, paraspinal muscle tenderness, thoraco-lumbar ROM limited with forward flexion (WNL) and with lateral flexion to the left (limited by pain) and straight leg raise positive left other (at 20 degrees) Pelvis: pain with anterior-posterior compression, pain with lateral compression, buttock tenderness bilaterally and no sciatic notch tenderness Skin General skin exam: no rashes or lesions noted Extrem General: Yes full ROM, Yes capillary refill normal, Yes no clubbing, cyanosis or edema and Yes no calf tenderness Psych Appearance: grossly normal Mental Status: mental status grossly normal Speech and movement: Normal speech and movement present, Pressured speech present and Psychomotor agitation in speech present Affect: normal affect and Irritable affect present Attitude: cooperative and Avoids eye contact (attititude/behavior) Thought process: Normal thought process present and Circumstantial thought process present Thought content: Normal thought content present Assessment & Plan Assessment & Plan (1) Osteoarthritis of right hip: Code(s): M16.11 - Unilateral primary osteoarthritis, right hip (2) Postlaminectomy syndrome: Code(s): M96.1 - Postlaminectomy syndrome, not elsewhere classified (3) History of lumbar spinal fusion: Code(s): Z98.1 - Arthrodesis status (4) Lumbar degenerative disc disease: Code(s): M51.36 - Other intervertebral disc degeneration, lumbar region (5) Lumbar spondylosis: Code(s): M47.816 - Spondylosis without myelopathy or radiculopathy, lumbar region (6) Lumbar radiculopathy: Code(s): M54.16 - Radiculopathy, lumbar region (7) Osteoarthritis, hip, bilateral: Code(s): M16.0 - Bilateral primary osteoarthritis of hip (8) Bilateral hip pain: Code(s): M25.551 - Pain in right hip; M25.552 - Pain in left hip (9) Low back pain: Code(s): M54.5 - Low back pain Qualifiers: Back pain laterality: bilateral Chronicity: chronic Sciatica presence: without sciatica Qualified Code(s): M54.50 - Low back pain, unspecified; G89.29 - Other chronic pain Plan: Patient with chronic pain syndrome related to arthritis and degenerative changes of her lumbar spine, s/p 5 back surgeries with lumbar fusion. After MRI becomes more clear that she is suffering from postlaminectomy syndrome. No spinal canal stenosis. The vertebras above the fusion are demonstrating Modic 1 type changes which could be another pain generator for her. She reports most significant pain when she is laying in bed. She is adamantly negative about intercept procedure. (10) Chronic pain syndrome: Code(s): G89.4 - Chronic pain syndrome Plan: (11) Thrombocytopenia: Code(s): D69.6 - Thrombocytopenia, unspecified Plan: Side effects of clonidine and behavior modifications needed while on intrathecal clonidine therapy was carefully explained to the patient, patient asked numerous questions, the questions were answered in detail. Plan Intrathecal pump refill. The patient came today to the office to change medication in her pain pump. Today she will be refilled with 20 cc of clonidine 100 milligrams/mL. The pump was interrogated and the residual amount of fluid was found to be 1.2 mL. SHE WAS POSITIONED prone on the bed AND THE AREA OF THE INTRATHECAL PUMP WAS PREPPED WITH CHLORAPREP. The fenestrated drape was sterilely applied over the area of the pump. Sterile gloves were worn and of the aspiration system was assembled containing 2 in 22 gauge noncoring needle, the needle was connected to extension tubing which was connected to the 20 cc sterile syringe. The pain pump was palpated under the skin in the patient's right buttock area. The needle was inserted through the skin and the central plug of the pain pump and fluid was aspirated. The clear fluid was going into the syringe the total amount of the fluid was 1.0 mL .. After that a new batch? of medication was obtained which was containing clonidine 100 micro g per mL. The admixture was made in 20 cc syringe prepared by [facility] pharmacy. The syringe was connected to the bacterial filter, and then connected to the extension tubing. After that the medication in the syringe was slowly instilled into the pump with aspirations at 15 and 5 cc [place].? The pump was reprogrammed for the continues doses of clonidine 20 micro g a day as well as clonidine 15 micro g on demand PTM doses 6 times a day once in 4. hours. Coding Level of Care Code Est Pt Level 3 (45359) Procedure Only Diagnoses Osteoarthritis of right hip M16.11 Postlaminectomy syndrome M96.1 History of lumbar spinal fusion Z98.1 Lumbar degenerative disc disease M51.36 Lumbar spondylosis M47.816 Lumbar radiculopathy M54.16 Osteoarthritis, hip, bilateral M16.0 Bilateral hip pain M25.551; M25.552 Low back pain M54.50; G89.29 Back pain laterality: bilateral Chronicity: chronic Sciatica presence: without sciatica Chronic pain syndrome G89.4 Thrombocytopenia D69.6
[2023-08-07 16:27] VITALS: BP 128/62; PULSE 83; RESP 14; O2SAT 98; BMI 31.9
== END 2023-08-07 16:21 | disposition home or self-care (01) ==
PROVIDERS: PCP Internal Medicine; Visit Provider Anesthesiology
DX: M16.11 Unilateral primary osteoarthritis, right hip (principal); M96.1 Postlaminectomy syndrome, not elsewhere classified; Z98.1 Arthrodesis status; M51.36 Other intervertebral disc degeneration, lumbar region; M47.816 Spondylosis without myelopathy or radiculopathy, lumbar region; M54.16 Radiculopathy, lumbar region; M16.0 Bilateral primary osteoarthritis of hip; M25.551 Pain in right hip; M25.552 Pain in left hip; M54.50 Low back pain, unspecified; G89.29 Other chronic pain; G89.4 Chronic pain syndrome
CPT/HCPCS: 62370; 99213

== ENCOUNTER → 2023-08-07 15:41 | Outpatient (BNVA) | payer MEDICARE, MEDICAID, SELFPAY | PROVIDERS: PCP Internal Medicine; Visit Provider Anesthesiology | DX: M16.11 Unilateral primary osteoarthritis, right hip (principal); M96.1 Postlaminectomy syndrome, not elsewhere classified; M51.36 Other intervertebral disc degeneration, lumbar region; M47.816 Spondylosis without myelopathy or radiculopathy, lumbar region; M54.16 Radiculopathy, lumbar region; M16.0 Bilateral primary osteoarthritis of hip; M25.551 Pain in right hip; M25.552 Pain in left hip; M54.50 Low back pain, unspecified; G89.29 Other chronic pain; Z98.1 Arthrodesis status | CPT/HCPCS: 62370; 99212 ==

== ENCOUNTER 2023-08-22 13:00 | Outpatient (AMB) | payer MEDICARE, MEDICAID, SELFPAY ==
--- NOTE | 2023-08-22 13:05 | A.OFFVIS_ITS ---
Vital Signs 08/22/23 13:16 Height 5 ft 3 in Weight 182 lb BMI 32.2 BP 120/54 L Blood Pressure Location Lt brachial Position Sitting Respiration 14 Pulse 79 Pulse Source Pulse Oximeter Pulse Oximetry (%) 94 Oxygen Delivery Method Room Air Intake Visit Reasons: ITDD Refill Intake Note: Patient comes in for intrathecal medication refill. Reports pain 5/10. Allergies bupropion [From Wellbutrin] Allergy (Intermediate, Verified 08/22/23 13:17) Itching influenza virus vaccine, specific [FLU VACCINE] Allergy (Unknown, Verified 08/22/23 13:17) RASH latex Allergy (Unknown, Verified 08/22/23 13:17) Rash Sulfa (Sulfonamide Antibiotics) Allergy (Unknown, Verified 08/22/23 13:17) UNKNOWN, itch, itching baclofen Allergy (Verified 08/22/23 13:17) twitching, falling down HPI Comments Details: Justa is here today for the refill of the intrathecal pain pump. She denies side effects on clonidine. She admits that clonidine PTM dose gives her some sensible pain relief. She requests me to increase number of the PTM doses to 20 micro g at a time she still will be able to administer herself about 6 doses in 24 hours with interval of 4 hours between the dose. She is not able to afford Prialt. She was given a bridge bolus dose because her concentration went today from 100 micro g to 400 micro g she will be able to start using her PTM machine Saturday morning. Her next pump refill will be in October 16 of this year. It is 57 days from now. She did not use almost a half of the medication today her left ovaries were 9 cc. Therefore we can safely extend her medication refill time for at least 60 days. Prior: results of the trial of intrathecal drug delivery system pain pump. She reported 2 days of 50% pain reduction. She reported that her activities of daily living improved, her mobility remain the same mostly on the account of right hip pain. She had significant right hip arthritis. She received intra- articular hip injections in the past with no result. She requests me to send her for orthopedic surgery consult in relation to THR on the left. As of her pain pump she would like me to schedule her for implantation of intrathecal drug delivery system pain pump. Risks and benefits were carefully explained to the p atient. She does not want to continue trialing. She requests me to prescribe her motorized scooter to improve her mobility. I will issue prescription to her on paper. She will bring it to [facility]. She is suffering from postlaminectomy syndrome. She has pain in the lower back with minimal radiation bilaterally. She reports that she had 4 surgeries on her lumbar spine on her x-ray of the lumbar spine there is intradiscal hardware at L5-S1 interspace as well as L4-5 interspace and there is also transpedicular screws and rods fusing L4-5 vertebra as. I send her to MRI of the lumbar spine results of which dictated as below. She has multiple changes in the MRI specially above the level of her fusion. She has reversal of spinal lordosis. She has kissing osteophytes of the L1 through L3 and into L4 lumbar vertebra as. Those are most seen on the x-ray which was done for her as well. She has Modic type 1 changes in upper lumbar vertebras. She has minimal facet arthritis and ligamentum flavum thickening. There is no spinal canal or foraminal stenosis on any levels. Therefore I think that this patient is suffering from postlaminectomy syndrome. I would like to consider neuromodulation for her including pain pump and spinal cord stimulator. She past psych evaluation. She has negative about spinal cord stimulation and insisted on intrathecal drug delivery system pain pump. Also there is significant Modic changes which could be addressed with intracept procedure. All this options were again given to the patient. She would like to proceed with bupivacaine pain pump. The patient after consideration decided that she wants to go for the pain pump. She adamantly refused to try spinal cord stimulator. She said that she had spinal cord stimulator in the past and it did not work for her. I offered her also intrasept procedure but she adamantly refused to go for intracept as well. She is on Suboxone for OUD. Risks and benefits of the procedure were explained today to the patient. The patient will be scheduled for trial. REPLACED BY [facility] Medical History (Updated 07/18/23 @ 05:32 by Background Kallie) Vasomotor symptoms due to menopause Impaired fasting glucose Smoker unmotivated to quit Cough present for greater than 3 weeks Hair thinning Prolapse of female pelvic organs Bilateral finger arthralgia Coccyx pain Diabetes mellitus with diabetic neuropathy, without long-term current use of insulin Pain or burning when swallowing Heartburn Hepatomegaly Osteoarthritis, hip, bilateral Bilateral hip pain Lumbar spondylosis Bilateral groin pain Depressive 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 History of pneumonia Vitamin B12 deficiency Vitamin D deficiency Insomnia ADHD Community acquired bilateral lower lobe pneumonia Injury of left heel Cough Cigarette smoker motivated to quit Dysuria Left shoulder pain Dyslipidemia Low back pain Lumbar degenerative disc disease Mixed incontinence urge and stress TEA on CPAP Opiate addiction Depression COPD (chronic obstructive pulmonary disease) Surgical History H/O neck surgery Status post sleeve gastrectomy History of lumbar spinal fusion H/O colonoscopy Hx of cholecystectomy History of partial hysterectomy H/O tubal ligation History of lumbar fusion Family History Father Aneurysm Other No family history of cancer Social History Household Members: Children Household Members Other:: daughter Housing: House Are you a primary aged or disabled carer to a significant other at home: No Do you presently have visiting nurse or other home services: No Alcohol intake: never Comment: NOT INDICATED Patient Tobacco Use Status: Current everyday Tobacco user Tobacco use type: Cigarette Cigarettes Per Day: 10 e-Cigarette/Vaping Use: Currently Using Second Hand Smoke Exposure: Yes service: No Current occupational status: unemployed Cognitive needs: Yes (walker) Hearing needs: No Vision needs: Yes (glasses) Review of Systems Const All systems reviewed & are unremarkable except as noted in HPI and below Physical Exam Vital Signs: Last Vital Signs Pulse 79 08/22/23 13:16 Resp 14 08/22/23 13:16 BP 120/54 L 08/22/23 13:16 Pulse Ox 94 08/22/23 13:16 Oxygen Delivery Method Room Air 08/22/23 13:16 BMI result Body Mass Index 32.2 Const General: cooperative, alert, awake, in distress (due to pain) mild and moderate and anxious Nutritional Appearance: obese morbidly obese Limitations: ambulation with walker HEENT Head: Yes normal to inspection, Yes normocephalic and No occipital foramen tenderness Ears: hearing grossly normal bilaterally and external ears normal Face and sinus: Yes normal facial exam and Yes face symmetric Eyes General: appearance normal, both eyes and all related structures Visual Evangelista: normal visual evangelista by confrontation EOM: EOMs intact bilaterally Neck Neck: Yes normal visual inspection, Yes full ROM, Yes no lymphadenopathy, Yes supple, No anterior neck swelling and Yes no JVD Chest Chest palpation & inspection: normal inspection of the chest Resp Effort & Inspection: normal respiratory effort, able to speak in complete sentences, no audible wheezes, no cough, no respiratory distress and symmetric chest movement Cardio Jugular venous distension: no JVD Bruits: no carotid bruits Peripheral pulses: radial pulses present, posterior tibial pulses present and dorsalis pedis present GI Inspection: Yes normal to inspection, No distended, Yes Abdominal panniculus present and Yes obesity Palpation (GI): Soft to palpation and nontender General: Yes no CVA tenderness Back/Spine/Pelvis Other: Limited exam due to significant back and groin pain with movements or walking, able to stand on heels and tip toes with moderate difficulty due to pain. Can flex forward up to 50-60 degrees and extend to 5-10 degrees before experiencing moderate lumbar pain. Facet loading positive bilaterally, ROM limited to pain. Demonstrates 4/5 strength of quadriceps bilaterally as well as flexion/dorsiflexion of bilateral feet against resistance. 2+ pedal pulses bilaterally. Straight leg rise with dorsiflexion positive on the left. Significant groin pain with bilateral internal and external hip rotations. Antalgic gate, ambulates slowly with walker. Lateral and medial left hip rotation causes significant groin discomfort. The patient also reports groin pain with walking Back: no CVA tenderness Cervical Spine: cervical ROM normal Thoracic/Lumbar Spine: thoracic and lumbar spine normal to inspection, Thoracic/lumbar spine scar(s), Lasegue's sign positive, pain with thoraco-lumbar ROM, paraspinal muscle tenderness, thoraco-lumbar ROM limited with forward flexion (WNL) and with lateral flexion to the left (limited by pain) and straight leg raise positive left other (at 20 degrees) Pelvis: pain with anterior-posterior compression, pain with lateral compression, buttock tenderness bilaterally and no sciatic notch tenderness Skin General skin exam: no rashes or lesions noted Extrem General: Yes full ROM, Yes capillary refill normal, Yes no clubbing, cyanosis or edema and Yes no calf tenderness Psych Appearance: grossly normal Mental Status: mental status grossly normal Speech and movement: Normal speech and movement present, Pressured speech present and Psychomotor agitation in speech present Affect: normal affect and Irritable affect present Attitude: cooperative and Avoids eye contact (attititude/behavior) Thought process: Normal thought process present and Circumstantial thought process present Thought content: Normal thought content present Assessment & Plan Assessment & Plan (1) Osteoarthritis of right hip: Code(s): M16.11 - Unilateral primary osteoarthritis, right hip Category: Medical (2) Postlaminectomy syndrome: Code(s): M96.1 - Postlaminectomy syndrome, not elsewhere classified Category: Medical (3) History of lumbar spinal fusion: Code(s): Z98.1 - Arthrodesis status Category: Surgical (4) Lumbar degenerative disc disease: Code(s): M51.36 - Other intervertebral disc degeneration, lumbar region Category: Medical (5) Lumbar spondylosis: Code(s): M47.816 - Spondylosis without myelopathy or radiculopathy, lumbar region Category: Medical (6) Lumbar radiculopathy: Code(s): M54.16 - Radiculopathy, lumbar region Category: Medical (7) Osteoarthritis, hip, bilateral: Code(s): M16.0 - Bilateral primary osteoarthritis of hip Category: Medical (8) Bilateral hip pain: Code(s): M25.551 - Pain in right hip; M25.552 - Pain in left hip Category: Medical (9) Low back pain: Code(s): M54.5 - Low back pain Category: Medical Qualifiers: Back pain laterality: bilateral Chronicity: chronic Sciatica presence: without sciatica Qualified Code(s): M54.50 - Low back pain, unspecified; G89.29 - Other chronic pain Plan: Patient with chronic pain syndrome related to arthritis and degenerative changes of her lumbar spine, s/p 5 back surgeries with lumbar fusion. MRI demonstrated no No spinal canal stenosis. The vertebras above the fusion are demonstrating Modic 1 type changes which could be another pain generator for her. She reports most significant pain when she is laying in bed. She is adamantly negative about intercept procedure. (10) Chronic pain syndrome: Code(s): G89.4 - Chronic pain syndrome Category: Medical Plan: (11) Thrombocytopenia: Code(s): D69.6 - Thrombocytopenia, unspecified Category: Medical Plan: Side effects of clonidine and behavior modifications needed while on intrathecal clonidine therapy was carefully explained to the patient, patient asked numerous questions, the questions were answered in detail. Plan Intrathecal pump refill. The patient came today to the office to change medication in her pain pump. Today she will be refilled with 20 cc of clonidine 400 micro g per mL The pump was interrogated and the residual amount of fluid was found to be 9.6 mL. SHE WAS POSITIONED prone on the bed AND THE AREA OF THE INTRATHECAL PUMP WAS PREPPED WITH CHLORAPREP. The fenestrated drape was sterilely applied over the area of the pump. Sterile gloves were worn and of the aspiration system was assembled containing 2 in 22 gauge noncoring needle, the needle was connected to extension tubing which was connected to the 20 cc sterile syringe. The pain pump was palpated under the skin in the patient's right buttock area. The needle was inserted through the skin and the central plug of the pain pump and fluid was aspirated. The clear fluid was going into the syringe the total amount of the fluid was 9.0 mL .. After that a new batch? of medication was obtained which was containing clonidine 400 micro g per mL. The admixture was made in 20 cc syringe prepared by [facility] compounding pharmacy. The syringe was connected to the bacterial filter, and then connected to the extension tubing. After that the medication in the syringe was slowly instilled into the pump with aspirations at 15 and 5 cc [place].? The pump was reprogrammed for the continues doses of clonidine 20 micro g a day as well as clonidine 20 micro g on demand PTM doses 6 times a day once in 4. hours. Coding Level of Care Code Est Pt Level 3 (64262) Procedure Only Diagnoses Osteoarthritis of right hip M16.11 Postlaminectomy syndrome M96.1 History of lumbar spinal fusion Z98.1 Lumbar degenerative disc disease M51.36 Lumbar spondylosis M47.816 Lumbar radiculopathy M54.16 Osteoarthritis, hip, bilateral M16.0 Bilateral hip pain M25.551; M25.552 Low back pain M54.50; G89.29 Back pain laterality: bilateral Chronicity: chronic Sciatica presence: without sciatica Chronic pain syndrome G89.4 Thrombocytopenia D69.6
[2023-08-22 13:16] VITALS: BP 120/54; PULSE 79; RESP 14; O2SAT 94; BMI 32.2
== END 2023-08-22 13:40 | disposition home or self-care (01) ==
PROVIDERS: PCP Internal Medicine; Visit Provider Anesthesiology
DX: M16.11 Unilateral primary osteoarthritis, right hip (principal); M96.1 Postlaminectomy syndrome, not elsewhere classified; Z98.1 Arthrodesis status; M51.36 Other intervertebral disc degeneration, lumbar region; M47.816 Spondylosis without myelopathy or radiculopathy, lumbar region; M54.16 Radiculopathy, lumbar region; M16.0 Bilateral primary osteoarthritis of hip; M25.551 Pain in right hip; M25.552 Pain in left hip; M54.50 Low back pain, unspecified; G89.29 Other chronic pain; G89.4 Chronic pain syndrome
CPT/HCPCS: 62370; 99213

== ENCOUNTER → 2023-08-22 13:00 | Outpatient (BNVA) | payer MEDICARE, MEDICAID, SELFPAY | PROVIDERS: PCP Internal Medicine; Visit Provider Anesthesiology | DX: M16.11 Unilateral primary osteoarthritis, right hip (principal); M96.1 Postlaminectomy syndrome, not elsewhere classified; Z98.1 Arthrodesis status; M51.36 Other intervertebral disc degeneration, lumbar region; M47.816 Spondylosis without myelopathy or radiculopathy, lumbar region; M54.16 Radiculopathy, lumbar region; M16.0 Bilateral primary osteoarthritis of hip; M25.551 Pain in right hip; M25.552 Pain in left hip; M54.50 Low back pain, unspecified; G89.29 Other chronic pain; D69.6 Thrombocytopenia, unspecified; G89.4 Chronic pain syndrome | CPT/HCPCS: 62370; 99212 ==

== ENCOUNTER 2023-09-26 12:46 | Outpatient (AMB) | payer MEDICARE, MEDICAID, SELFPAY ==
--- NOTE | 2023-09-26 12:34 | MHC.OFFVISWM ---
VS Expanded 09/26/23 12:35 Height 5 ft 3 in Weight 178 lb BMI 31.5 Intake Visit Reasons: TV PO LSG 10/24/21 Allergies bupropion [From Wellbutrin] Allergy (Intermediate, Verified 08/22/23 13:17) Itching influenza virus vaccine, specific [FLU VACCINE] Allergy (Unknown, Verified 08/22/23 13:17) RASH latex Allergy (Unknown, Verified 08/22/23 13:17) Rash Sulfa (Sulfonamide Antibiotics) Allergy (Unknown, Verified 08/22/23 13:17) UNKNOWN, itch, itching baclofen Allergy (Verified 08/22/23 13:17) twitching, falling down Medication List - Last Reconciled 09/26/23 by ALON Inman acetaminophen ER (Tylenol Arthritis Pain) 650 mg PO Q8H PRN acetaminophen ER (Arthritis Pain Relief (acetaminophen) ER) 650 mg PO Q8H PRN albuterol sulfate 2.5 mg (3 mL) inhalation Q6H PRN albuterol sulfate 90 mcg/actuation (Ventolin HFA) 2 puffs PO QID PRN budesonide-formoterol 160-4.5 mcg/actuation (Symbicort) 2 puffs inhalation Q12H buprenorphine-naloxone 8-2 mg 1 strip sublingual BID clotrimazole 1% 1 appl topical BID dextroamphetamine-amphetamine 10 mg 1 tab PO DAILY dextroamphetamine-amphetamine 30 mg 30 mg PO BID@0900,1300 diclofenac sodium 1% 2 grams topical QID PRN divalproex ER 1,500 mg PO QPM doxepin 50 mg PO BEDTIME Dulera 200-5 mcg/actuation (mometasone-formoterol) 2 puffs inhalation Q12H NS gabapentin 800 mg PO TID 30 days linaclotide (Linzess) 290 mcg PO QAM pantoprazole 40 mg PO DAILY risperidone (Risperdal) 2 mg PO BEDTIME rosuvastatin 5 mg PO DAILY rosuvastatin 5 mg PO DAILY sertraline 100 mg PO QAM trazodone 3 tabs PO BEDTIME Veozah (fezolinetant) 45 mg PO DAILY NS HPI Comments Details: This?is a?63?yo female who is s/p LSG 10/24/2021. Weight at last visit on 06/27/2023 was 172 pounds with a BMI of 29.8, weight today is 178 pounds, representing a 6 pound weight gain with a BMI today of 31.5.? No complaints of nausea, emesis, abdominal pain or reflux, or constipation. Started on clonidine pump by Dr. De. Present meal plan includes: 3 Celebrate shakes with 1 scoop in 8oz UAM each, plus 2 Atkins protein bars was given above plan but pt also reports she will have dinner- usually chicken, pork chop plus vegetables (green beans, corn) Exercise routine includes: mobility is difficult, walks with a walker tries to exercise with seated movements Pt reports problems with excess skin of abdomen. She continues to have difficulty with rashes, not well controlled by clotrimazole. If sweat or moisture collects in the skin fold it becomes very malodorous, has to wash frequently. Very uncomfortable and painful even when walking due to the heaviness of the skin. She also complains of problems of excess skin of arms. She develops irritation from excess skin rubbing against her body. Also causes discomfort due to heaviness. [facility] Medical History (Updated 07/18/23 @ 05:32 by Background Daprabhakar) Vasomotor symptoms due to menopause Impaired fasting glucose Smoker unmotivated to quit Cough present for greater than 3 weeks Hair thinning Prolapse of female pelvic organs Bilateral finger arthralgia Coccyx pain Diabetes mellitus with diabetic neuropathy, without long-term current use of insulin Pain or burning when swallowing Heartburn Hepatomegaly Osteoarthritis, hip, bilateral Bilateral hip pain Lumbar spondylosis Bilateral groin pain Depressive 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 History of pneumonia Vitamin B12 deficiency Vitamin D deficiency Insomnia ADHD Community acquired bilateral lower lobe pneumonia Injury of left heel Cough Cigarette smoker motivated to quit Dysuria Left shoulder pain Dyslipidemia Low back pain Lumbar degenerative disc disease Mixed incontinence urge and stress TEA on CPAP Opiate addiction Depression COPD (chronic obstructive pulmonary disease) Surgical History H/O neck surgery Status post sleeve gastrectomy History of lumbar spinal fusion H/O colonoscopy Hx of cholecystectomy History of partial hysterectomy H/O tubal ligation History of lumbar fusion Family History Father Aneurysm Other No family history of cancer Social History Household Members: Children Household Members Other:: daughter Housing: House Are you a primary health care liaison to a significant other at home: No Do you presently have visiting nurse or other home services: No Alcohol intake: never Comment: NOT INDICATED Patient Tobacco Use Status: Current everyday Tobacco user Tobacco use type: Cigarette Cigarettes Per Day: 10 e-Cigarette/Vaping Use: Currently Using Second Hand Smoke Exposure: Yes service: No Current occupational status: unemployed Cognitive needs: Yes (walker) Hearing needs: No Vision needs: Yes (glasses) Telehealth Telehealth Telehealth Platform: Telephone Location of provider rendering services: other Location of patient: address on file Patient Identification confirmed using: Name, : Yes Telehealth method: voice only Patient verbally consented to treatment: Yes Patient verbally consented to billing insurance company: Yes Patient informed of any privacy concerns related to visit: Yes Minutes spent on Phone/Video with Pt.: 15 Assessment & Plan Assessment & Plan (1) Status post sleeve gastrectomy: Comment: 10/24/2021 Code(s): Z90.3 - Acquired absence of stomach [part of] Category: Surgical (2) Obesity: Code(s): E66.9 - Obesity, unspecified Category: Medical Qualifiers: Obesity type: due to excess calories Obesity classification: adult class 3 (BMI >= 40) Serious obesity comorbidity presence: with serious comorbidity Body mass index: BMI 40.0-44.9 Qualified Code(s): E66.01 - Morbid (severe) obesity due to excess calories; Z68.41 - Body mass index [BMI]40.0-44.9, adult Plan Pt to adhere to meal plan of 3 shakes, 2 bars and no meal. This worked well for her previously resulting in weight loss. Need to quit smoking for 1 month prior to surgery with weekly nicotine testing. Pt continues to experience painful rashes of excess skin of abdomen. Continue clotrimazole for now, however she would benefit from definitive treatment of panniculectomy. RTC 6 weeks and pt encouraged to reach out to me via text between appts with updates or any questions. Patient is obese and with ongoing problems of excess skin and is not considered stable at this time. I spent a total of 30 minutes reviewing/updating records, examining the patient and counseling the patient on weight management as detailed above.
[2023-09-26 12:35] VITALS: BMI 31.5
== END 2023-09-26 12:54 | disposition home or self-care (01) ==
LOC: HO.HBS 12:47
PROVIDERS: PCP Internal Medicine; Visit Provider Physician Assistant Surgical
DX: E66.01 Morbid (severe) obesity due to excess calories (principal); Z68.31 Body mass index [BMI] 31.0-31.9, adult; Z90.3 Acquired absence of stomach [part of]; Z98.84 Bariatric surgery status
CPT/HCPCS: 99442

== ENCOUNTER → 2023-09-26 12:46 | Outpatient (BNVA) | payer MEDICARE, MEDICAID, SELFPAY | PROVIDERS: PCP Internal Medicine; Visit Provider Physician Assistant Surgical ==

== ENCOUNTER 2023-10-04 12:12 | Outpatient (REF) | payer MEDICARE, MEDICAID, SELFPAY ==
[2023-10-04 14:40] LABS: Alanine Aminotransferase 11 U/L (0-31); Aspartate Amino Transferase 16 U/L (5-31); Cholesterol 184 mg/dL (<200); HDL Cholesterol 50 mg/dL (>40); LDL Cholesterol Calculated 101 mg/dL (<100); Triglycerides 167 mg/dL (<150)
== END 2023-10-04 12:13 | disposition home or self-care (01) ==
LOC: HO.HMGCLDS 12:12
PROVIDERS: PCP Internal Medicine; Visit Provider Internal Medicine
DX: E78.5 Hyperlipidemia, unspecified (principal)
CPT/HCPCS: 36415; 80061; 84450; 84460

== ENCOUNTER 2023-10-11 11:14 | Outpatient (AMB) | payer MEDICARE, MEDICAID, SELFPAY ==
--- NOTE | 2023-10-11 11:09 | A.OFFPC_ITS ---
Intake Visit Reasons: f/u lipids Andriod [phone] Intake Note: Pt is having a telehealth visit to f/u lipids Allergies bupropion [From Wellbutrin] Allergy (Intermediate, Verified 10/11/23 11:28) Itching influenza virus vaccine, specific [FLU VACCINE] Allergy (Unknown, Verified 10/11/23 11:28) RASH latex Allergy (Unknown, Verified 10/11/23 11:28) Rash Sulfa (Sulfonamide Antibiotics) Allergy (Unknown, Verified 10/11/23 11:28) UNKNOWN, itch, itching baclofen Allergy (Verified 10/11/23 11:28) twitching, falling down Medication List - Last Reconciled 10/11/23 by Melissa Topete MD acetaminophen ER (Tylenol Arthritis Pain) 650 mg PO Q8H PRN albuterol sulfate 2.5 mg (3 mL) inhalation Q6H PRN albuterol sulfate 90 mcg/actuation (Ventolin HFA) 2 puffs PO QID PRN budesonide-formoterol 160-4.5 mcg/actuation (Symbicort) 2 puffs inhalation Q12H buprenorphine-naloxone 8-2 mg 1 strip sublingual BID clotrimazole 1% 1 appl topical BID dextroamphetamine-amphetamine 10 mg 1 tab PO DAILY dextroamphetamine-amphetamine 30 mg 30 mg PO BID@0900,1300 diclofenac sodium 1% 2 grams topical QID PRN divalproex ER 1,500 mg PO QPM doxepin 50 mg PO BEDTIME Dulera 200-5 mcg/actuation (mometasone-formoterol) 2 puffs inhalation Q12H NS gabapentin 800 mg PO TID 30 days linaclotide (Linzess) 290 mcg PO QAM pantoprazole 40 mg PO DAILY risperidone (Risperdal) 2 mg PO BEDTIME rosuvastatin 5 mg PO DAILY sertraline 100 mg PO QAM trazodone 3 tabs PO BEDTIME Veozah (fezolinetant) 45 mg PO DAILY NS Tobacco use date assessed: 10/11/23 Dental Screening Dental Screen Date: 10/11/23 Did you have a dental visit in the last 12 months?: Yes Did you have a dental problem in the last 6 months where you did not have access to dental care?: Yes Was dental information given to patient?: Patient has dentist HPI f/u lipids Andriod [phone] HPI Details 63-year-old lady with hyperlipidemia, he re today for follow-up. She was started on lovastatin 5 mg daily on last visit approximately 3 months ago and advised to follow a low-cholesterol diet . Patient has been compliant with taking her medications, reported no side effects from taking it. Latest fasting labs showed marked improvement in all her lipid levels, which are now within normal limits. She has also been complaining of a sore throat and cough, but no fever , present now for the last 5 days. Patient states that she has been exposed to her granddaughter who lives with her and had strep. [facility] Medical History (Updated 10/11/23 @ 11:35 by Melissa Topete MD) Vasomotor symptoms due to menopause Impaired fasting glucose Smoker unmotivated to quit Cough present for greater than 3 weeks Hair thinning Prolapse of female pelvic organs Bilateral finger arthralgia Coccyx pain Diabetes mellitus with diabetic neuropathy, without long-term current use of insulin Pain or burning when swallowing Heartburn Hepatomegaly Osteoarthritis, hip, bilateral Bilateral hip pain Lumbar spondylosis Bilateral groin pain Depressive 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 History of pneumonia Vitamin B12 deficiency Vitamin D deficiency Insomnia ADHD Community acquired bilateral lower lobe pneumonia Injury of left heel Cough Cigarette smoker motivated to quit Dysuria Left shoulder pain Dyslipidemia Low back pain Lumbar degenerative disc disease Mixed incontinence urge and stress TEA on CPAP Opiate addiction Depression COPD (chronic obstructive pulmonary disease) Surgical History H/O neck surgery Status post sleeve gastrectomy History of lumbar spinal fusion H/O colonoscopy Hx of cholecystectomy History of partial hysterectomy H/O tubal ligation History of lumbar fusion Family History Father Aneurysm Other No family history of cancer Social History Household Members: Children Household Members Other:: daughter Housing: House Are you a primary urgent care technician to a significant other at home: No Do you presently have visiting nurse or other home services: No Alcohol intake: never Comment: NOT INDICATED Patient Tobacco Use Status: Current everyday Tobacco user Tobacco use type: Cigarette Cigarettes Per Day: 10 e-Cigarette/Vaping Use: Currently Using Second Hand Smoke Exposure: Yes service: No Current occupational status: unemployed Cognitive needs: Yes (walker) Hearing needs: No Vision needs: Yes (glasses) Questionnaire Thrive Questionnaire Date Thrive assessed: 06/28/23 AMANDA-7 AMB Questionnaire AMANDA-7 Date AMANDA - 7 assessed: 06/28/23 Source: Developed by Drs. Mark Cota, Alva Ghotra, Adis Kramer and colleagues, with an educational adeel from [employer]. Review of Systems Const Reports as per HPI ENT Reports as per HPI, Denies dysphagia, Denies neck pain and Denies sinus pain Card Denies chest pain, Denies irregular heart rhythm, Denies lightheadedness and Denies dyspnea Resp Reports as per HPI, Denies chest congestion and Denies dyspnea GI Denies abdominal pain and Denies dysphagia Reports no additional complaints Musc Denies muscle cramps, Denies muscle weakness and Denies neck pain Physical exam (Primary Care) Tobacco/Smoking Status: Tobacco use Status Tobacco use date assessed 10/11/23 10/11/23 11:10 Patient Tobacco Use Status Current everyday Tobacco 10/11/23 11:10 Tobacco use type Cigarette 10/11/23 11:10 e-Cigarette/Vaping Use Currently Using 10/11/23 11:10 Thrive Assessment: Date of Thrive Assessment Date Thrive assessed 06/28/23 10/11/23 11:10 Telehealth Telehealth Telehealth Platform: [facility] Location of provider rendering services: practice address Location of patient: address on file Patient Identification confirmed using: Name, : Yes Telehealth method: video Patient verbally consented to treatment: Yes Patient verbally consented to billing insurance company: Yes Patient informed of any privacy concerns related to visit: Yes Minutes spent on Phone/Video with Pt.: 15 Results Reviewed Results Reviewed: Name: Justa Larsen Age/Sex: 63/F : 1960 Unit#: [id number] Attend Dr: Melissa Topete MD Re10/04/23 Status: DEP REF Location: [facility] Disch: SPEC : [id number] ELICIA: 10/04/23-1216 STATUS: COMP REQ : [id number] RECD: 10/04/23-[address]: Melissa Topete MD COMP: 10/04/23-1440 ENTERED: 10/04/23-[address] [facility] [address]: ORDERED: AST, ALT, Lipid Panel Test Result Flag Reference AST (GOT) 16 5-31 U/L ALT (GPT) 11 0-31 U/L Triglyceride 167 H <150 mg/dL Desirable Triglyceride: less than 150 mg/dL Borderline High Triglyceride 150-199 mg/dL High Triglyceride: 200-499 mg/dL Very High Triglyceride: greater than or equal to 5OO mg/dL Cholesterol 184 <200 mg/dL Desirable Cholesterol: less than 200 mg/dL Borderline High Cholesterol: 200-239 mg/dL High Cholesterol: greater than 239 mg/dL LDL Calculated 101 H <100 mg/dL Desirable LDL: less than 100 mg/dL Near Optimal/Above Optimal LDL: 110-129 mg/dL Borderline High LDL: 130-159 mg/dL High LDL: 160-189 mg/dL Very High LDL: greater than or equal to 190 mg/dL HDL 50 >40 mg/dL Desirable HDL: greater than 40 mg/dL Note: This HDL assay may give artificially low results in patients with liver disease. Assessment and Plan Assessment & Plan (1) Dyslipidemia: Code(s): E78.5 - Hyperlipidemia, unspecified Plan: Reviewed recent fasting lipid profile with patient with marked improvement in lipid levels, now within normal limits . Continue rosuvastatin 5 mg daily , in addition to adherence to low-cholesterol diet and regular exercise, at least 30 minutes 3 to 4 times a week. Advised patient to make healthy food choices, eat more fruits, vegetables, whole grains, wild caught fish and low- fat dairy. Limit amount of meat and fried or fatty food products, as well as processed foods and fast foods. Follow-up scheduled with repeat fasting lipid panel in 5 months. (2) Sore throat: Code(s): J02.9 - Acute pharyngitis, unspecified Plan: With positive exposure to strep throat, empirically placed on amoxicillin 500 mg per capsule to take 1 every 8 hours for 7 days. Do warm salt water gargles. Return to clinic if no improvement of symptoms after 5 days Orders: Orders Lipid Panel 02/16/24 E78.5 - Hyperlipidemia, unspecified Aspartate Amino Transferase 02/16/24 E78.5 - Hyperlipidemia, unspecified Alanine Aminotransferase 02/16/24 E78.5 - Hyperlipidemia, unspecified Medications: New amoxicillin 500 mg PO Q8H 14 caps 0RF Refilled rosuvastatin 5 mg PO DAILY 30 tabs 5RF Coding Level of Care Code Est Pt Level 4 (41955) Complex EM visit Add On G2211 Diagnoses Dyslipidemia E78.5 Sore throat J02.9
== END 2023-10-11 15:39 | disposition home or self-care (01) ==
LOC: HO.HMGC 11:14
PROVIDERS: PCP Internal Medicine; Visit Provider Internal Medicine
DX: E78.5 Hyperlipidemia, unspecified (principal); J02.9 Acute pharyngitis, unspecified
CPT/HCPCS: 99213; G2211

== ENCOUNTER 2023-10-14 10:55 | Outpatient (AMB) | payer MEDICARE, MEDICAID, SELFPAY ==
--- NOTE | 2023-10-14 11:00 | MHC.OFFVIS ---
Vital Signs 10/14/23 11:18 Height 5 ft 3 in Weight 180 lb 4 oz BMI 31.9 BP 108/60 Blood Pressure Location Lt brachial Position Sitting Respiration 18 Pulse 74 Pulse Source Pulse Oximeter Pulse Oximetry (%) 93 Oxygen Delivery Method Room Air Intake Visit Reasons: ITDD REFILL Intake Note: Patient comes in for intrathecal medication refill. Reports pain 01/29. Allergies bupropion [From Wellbutrin] Allergy (Intermediate, Verified 10/14/23 11:20) Itching influenza virus vaccine, specific [FLU VACCINE] Allergy (Unknown, Verified 10/14/23 11:20) RASH latex Allergy (Unknown, Verified 10/14/23 11:20) Rash Sulfa (Sulfonamide Antibiotics) Allergy (Unknown, Verified 10/14/23 11:20) UNKNOWN, itch, itching baclofen Allergy (Verified 10/14/23 11:20) twitching, falling down HPI Comments Details: Justa is here today for the refill of the intrathecal pain pump. She denies side effects on clonidine. She admits that clonidine PTM dose gives her at least 50% pain relief. She admits that she forgets to apply PTM doses on herself. She denies dizziness drowsiness lightheadedness secondary to her medications. She presents herself today with excess of 11 cc of the medication. We discussed situation at hands. I offered her to reprogrammed her machine for 6 applications at equal times every 4 hours of the extra clonidine doses. The patient wants to be able to apply PTM doses on herself. With flexible doses she will lose ability to use PTM. She is also upset to the fact that she needs to walk flexed forward using walker. She states that it has a 63 years old she should not be walking like this. She insists on sending her to MRI and eventually to a neurosurgeon to evaluate her spine. She requests me to increase her PTM doses. I increased it to 26 mg from 20 mg. Her next pump refill in 23 days now. We will have to double the concentration of the medication to 800 micro g of clonidine. She told me that she lost her gabapentin pills. I will prescribe her 1 extra prescription of gabapentin. Prior: results of the trial of intrathecal drug delivery system pain pump. She reported 2 days of 50% pain reduction. She reported that her activities of daily living improved, her mobility remain the same mostly on the account of right hip pain. She had significant right hip arthritis. She received intra-articular hip injections in the past with no result. She requests me to send her for orthopedic surgery consult in relation to THR on the left. As of her pain pump she would like me to schedule her for implantation of intrathecal drug delivery system pain pump. Risks and benefits were carefully explained to the patient. She does not want to continue trialing. She requests me to prescribe her motorized scooter to improve her mobility. I will issue prescription to her on paper. She will bring it to [facility]. She is suffering from postlaminectomy syndrome. She has pain in the lower back with minimal radiation bilaterally. She reports that she had 4 surgeries on her lumbar spine on her x-ray of the lumbar spine there is intradiscal hardware at L5-S1 interspace as well as L4-5 interspace and there is also transpedicular screws and rods fusing L4-5 vertebra as. I send her to MRI of the lumbar spine results of which dictated as below. She has multiple changes in the MRI specially above the level of her fusion. She has reversal of spinal lordosis. She has kissing osteophytes of the L1 through L3 and into L4 lumbar vertebra as. Those are most seen on the x-ray which was done for her as well. She has Modic type 1 changes in upper lumbar vertebras. She has minimal facet arthritis and ligamentum flavum thickening. There is no spinal canal or foraminal stenosis on any levels. Therefore I think that this patient is suffering from postlaminectomy syndrome. I would like to consider neuromodulation for her including pain pump and spinal cord stimulator. She past psych evaluation. She has negative about spinal cord stimulation and insisted on intrathecal drug delivery system pain pump. Also there is significant Modic changes which could be addressed with intracept procedure. All this options were again given to the patient. She would like to proceed with bupivacaine pain pump. The patient after consideration decided that she wants to go for the pain pump. She adamantly refused to try spinal cord stimulator. She said that she had spinal cord stimulator in the past and it did not work for her. I offered her also intrasept procedure but she adamantly refused to go for intracept as well. She is on Suboxone for OUD. Risks and benefits of the procedure were explained today to the patient. The patient will be scheduled for trial. [facility] Medical History (Updated 10/11/23 @ 11:35 by Melissa Topete MD) Vasomotor symptoms due to menopause Impaired fasting glucose Smoker unmotivated to quit Cough present for greater than 3 weeks Hair thinning Prolapse of female pelvic organs Bilateral finger arthralgia Coccyx pain Diabetes mellitus with diabetic neuropathy, without long-term current use of insulin Pain or burning when swallowing Heartburn Hepatomegaly Osteoarthritis, hip, bilateral Bilateral hip pain Lumbar spondylosis Bilateral groin pain Depressive 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 History of pneumonia Vitamin B12 deficiency Vitamin D deficiency Insomnia ADHD Community acquired bilateral lower lobe pneumonia Injury of left heel Cough Cigarette smoker motivated to quit Dysuria Left shoulder pain Dyslipidemia Low back pain Lumbar degenerative disc disease Mixed incontinence urge and stress TEA on CPAP Opiate addiction Depression COPD (chronic obstructive pulmonary disease) Surgical History (Updated 10/11/23 @ 11:35 by Melissa Topete MD) H/O neck surgery Status post sleeve gastrectomy History of lumbar spinal fusion H/O colonoscopy Hx of cholecystectomy History of partial hysterectomy H/O tubal ligation History of lumbar fusion Family History Father Aneurysm Other No family history of cancer Social History Household Members: Children Household Members Other:: daughter Housing: House Are you a primary home care chaplain to a significant other at home: No Do you presently have visiting nurse or other home services: No Alcohol intake: never Comment: NOT INDICATED Patient Tobacco Use Status: Current everyday Tobacco user Tobacco use type: Cigarette Cigarettes Per Day: 10 e-Cigarette/Vaping Use: Currently Using Second Hand Smoke Exposure: Yes service: No Current occupational status: unemployed Cognitive needs: Yes (walker) Hearing needs: No Vision needs: Yes (glasses) Review of Systems Const All systems reviewed & are unremarkable except as noted in HPI and below Physical Exam Vital Signs: Last Vital Signs Pulse 74 10/14/23 11:18 Resp 18 10/14/23 11:18 BP 108/60 10/14/23 11:18 Pulse Ox 93 10/14/23 11:18 Oxygen Delivery Method Room Air 10/14/23 11:18 BMI result Body Mass Index 31.9 Const General: cooperative, alert, awake, in distress (due to pain) mild and moderate and anxious Nutritional Appearance: obese morbidly obese Limitations: ambulation with walker HEENT Head: Yes normal to inspection, Yes normocephalic and No occipital foramen tenderness Ears: hearing grossly normal bilaterally and external ears normal Face and sinus: Yes normal facial exam and Yes face symmetric Eyes General: appearance normal, both eyes and all related structures Visual Evangelista: normal visual evangelista by confrontation EOM: EOMs intact bilaterally Neck Neck: Yes normal visual inspection, Yes full ROM, Yes no lymphadenopathy, Yes supple, No anterior neck swelling and Yes no JVD Chest Chest palpation & inspection: normal inspection of the chest Resp Effort & Inspection: normal respiratory effort, able to speak in complete sentences, no audible wheezes, no cough, no respiratory distress and symmetric chest movement Cardio Jugular venous distension: no JVD Bruits: no carotid bruits Peripheral pulses: radial pulses present, posterior tibial pulses present and dorsalis pedis present GI Inspection: Yes normal to inspection, No distended, Yes Abdominal panniculus present and Yes obesity Palpation (GI): Soft to palpation and nontender General: Yes no CVA tenderness Back/Spine/Pelvis Other: Limited exam due to significant back and groin pain with movements or walking, able to stand on heels and tip toes with moderate difficulty due to pain. Can flex forward up to 50-60 degrees and extend to 5-10 degrees before experiencing moderate lumbar pain. Facet loading positive bilaterally, ROM limited to pain. Demonstrates 4/5 strength of quadriceps bilaterally as well as flexion/dorsiflexion of bilateral feet against resistance. 2+ pedal pulses bilaterally. Straight leg rise with dorsiflexion positive on the left. Significant groin pain with bilateral internal and external hip rotations. Antalgic gate, ambulates slowly with walker. Lateral and medial left hip rotation causes significant groin discomfort. The patient also reports groin pain with walking Back: no CVA tenderness Cervical Spine: cervical ROM normal Thoracic/Lumbar Spine: thoracic and lumbar spine normal to inspection, Thoracic/lumbar spine scar(s), Lasegue's sign positive, pain with thoraco-lumbar ROM, paraspinal muscle tenderness, thoraco-lumbar ROM limited with forward flexion (WNL) and with lateral flexion to the left (limited by pain) and straight leg raise positive left other (at 20 degrees) Pelvis: pain with anterior-posterior compression, pain with lateral compression, buttock tenderness bilaterally and no sciatic notch tenderness Skin General skin exam: no rashes or lesions noted Extrem General: Yes full ROM, Yes capillary refill normal, Yes no clubbing, cyanosis or edema and Yes no calf tenderness Psych Appearance: grossly normal Mental Status: mental status grossly normal Speech and movement: Normal speech and movement present, Pressured speech present and Psychomotor agitation in speech present Affect: normal affect and Irritable affect present Attitude: cooperative and Avoids eye contact (attititude/behavior) Thought process: Normal thought process present and Circumstantial thought process present Thought content: Normal thought content present Results Reviewed Results Reviewed: MRI lumbar spine without contrast 11/19/2022 Interpretation the conus is identified at T12-L1 level with normal signal and no evidence of a mass. There is straightening of the usual lumbar lordosis. There are normal vertebral body heights. No bone marrow edema is seen given the metallic artifact. T10-T11 no disc is herniation is seen. T11-T12 minimal disc bulge T12-L1 no disc herniation. L1-L2 no disc herniation. L2-L3 loss of disc space height with very prominent anterior endplate Modic type discogenic reactive changes. There are mild broad-based disc protrusions which mildly indents on the thecal sac. The neural foramina is patent. At L3-L4 level there is a mild broad-based disc bulge with minimally indents the thecal sacs neural foramina patent. Prominent Modic type 1 endplate discogenic reactive changes. L4-L5 there are status post discectomy and fusion changes within intervertebral disc spacers and bilateral pedicle screws in the L4 and L5 vertebral bodies. No canal or foraminal narrowing is seen given the metallic artifact. Prominent Modic type 1 endplate discogenic reactive changes. L5-S1 there status post cystectomy infusion changes within the intervertebral disc spacer. No canal or foraminal narrowing is seen given the metallic artifact. There is no evidence of any a symmetric atrophy or muscle edema involving visualized paraspinal or iliopsoas muscle. A tiny T2 bright rounded focus associated with right kidney statistically may be represented renal cyst. Addendum A colon findings: Postsurgical changes from instrumental posterior spinal fusion spanning L4-5 with interbody spacer in place. There is also interbody device at L5-S1. Slight reversal of usual lumbar lordosis. No significant spondylolisthesis. No suspicious marrow spinal of focal osseous lesions. Endplate marrow edema at L2-L3. There is also some mild edema involving anterior aspect of L1 vertebral body. Vertebral body heights are maintained. The intervertebral discs are normal height and signal. The conus medullaris terminates the level of L1. The distal spinal cord is normal in appearance. The cauda equina nerve roots appears normal. There is some fatty atrophy as well as mild edema involving the medial aspect of psoas muscles. Likely reflecting sequela of denervation. Limited evaluation of intra-abdominal structures without significant abnormalities. The abdominal aorta is normal contour in caliber. Spinal levels: T12-L1 mild facet arthropathy no significant spinal canal or neural foraminal narrowing. L1-L2 no significant spinal canal or neural foraminal narrowing. Shallow disc bulge and mild facet arthropathy. Ligamentum flavum thickening. L2-L3 shallow broad-based disc bulge, mild facet arthropathy, ligamentum flavum thickening. Mild central canal stenosis and ventral thecal sac flattening. No significant neural foraminal narrowing. L3-L4: No significant spinal canal or neural foraminal narrowing. Shallow disc bulge and mild facet arthropathy. L4-5: No significant spinal canal neural foraminal narrowing. L5-S1 no significant spinal canal stenosis neural foramina somewhat obscured due to hardware susceptibility artifact without evidence of high-grade stenosis. Impression postsurgical changes from L4-5 instrumental posterior spinal fusion and L4-5 and L5 S for 1 interbody fusion. Overall mild multilevel lumbar spondylosis as described above without high-grade spinal canal or neural foraminal narrowing. X-ray lumbar sacral spine 11/12/2022. Findings: There is reversal of lumbar lordosis with disc ages at L4-5 and L5-S1 disc levels. There is posterior hardware from L4 through L5 vertebra. There is degenerative disc changes and all lumbar disc levels with moderate bridging osteophytes at L1-L2 and L2-L3 disc levels. No aggressive lytic or sclerotic process seen. The paravertebral soft tissues are normal. SI joints are normal. Assessment & Plan Assessment & Plan (1) Osteoarthritis of right hip: Code(s): M16.11 - Unilateral primary osteoarthritis, right hip Category: Medical (2) Postlaminectomy syndrome: Code(s): M96.1 - Postlaminectomy syndrome, not elsewhere classified Category: Medical (3) History of lumbar spinal fusion: Code(s): Z98.1 - Arthrodesis status Category: Surgical (4) Lumbar degenerative disc disease: Code(s): M51.36 - Other intervertebral disc degeneration, lumbar region Category: Medical (5) Lumbar spondylosis: Code(s): M47.816 - Spondylosis without myelopathy or radiculopathy, lumbar region Category: Medical (6) Lumbar radiculopathy: Code(s): M54.16 - Radiculopathy, lumbar region Category: Medical (7) Osteoarthritis, hip, bilateral: Code(s): M16.0 - Bilateral primary osteoarthritis of hip Category: Medical (8) Bilateral hip pain: Code(s): M25.551 - Pain in right hip; M25.552 - Pain in left hip Category: Medical (9) Low back pain: Code(s): M54.5 - Low back pain Category: Medical Qualifiers: Back pain laterality: bilateral Chronicity: chronic Sciatica presence: without sciatica Qualified Code(s): M54.50 - Low back pain, unspecified; G89.29 - Other chronic pain Plan: Patient with chronic pain syndrome related to arthritis and degenerative changes of her lumbar spine, s/p 5 back surgeries with lumbar fusion. MRI demonstrated no No spinal canal stenosis. The vertebras above the fusion are demonstrating Modic 1 type changes which could be another pain generator for her. She reports most significant pain when she is laying in bed. She is adamantly negative about intercept procedure. She insistence sending her for yet another MRI and send her for evaluation with neurosurgeon. I will refer her to Dr. Eduardo. (10) Chronic pain syndrome: Code(s): G89.4 - Chronic pain syndrome Category: Medical Plan: (11) Thrombocytopenia: Code(s): D69.6 - Thrombocytopenia, unspecified Category: Medical Plan: The patient is very upset about the fact that she is walking leaning on the walker. She states: ? I am only 63 years old I can not walk like this, I can not live like this ?. She insists on appointment with the neurosurgeon. She states: ?The must be a surgery which will fix me and allowing me to walk straight. ? Plan Intrathecal pump refill. The patient came today to the office to change medication in her pain pump. Today she will be refilled with 20 cc of clonidine 400 micro g per mL The pump was interrogated and the residual amount of fluid was found to be 11.3 mL. SHE WAS POSITIONED prone on the bed AND THE AREA OF THE INTRATHECAL PUMP WAS PREPPED WITH CHLORAPREP. The fenestrated drape was sterilely applied over the area of the pump. Sterile gloves were worn and of the aspiration system was assembled containing 2 in 22 gauge noncoring needle, the needle was connected to extension tubing which was connected to the 20 cc sterile syringe. The pain pump was palpated under the skin in the patient's right buttock area. The needle was inserted through the skin and the central plug of the pain pump and fluid was aspirated. The clear fluid was going into the syringe the total amount of the fluid was 11.0 mL .. After that a new batch? of medication was obtained which was containing clonidine 400 micro g per mL. The admixture was made in 20 cc syringe prepared by [facility] compounding pharmacy. The syringe was connected to the bacterial filter, and then connected to the extension tubing. After that the medication in the syringe was slowly instilled into the pump with aspirations at 15 and 5 cc [place].? The pump was reprogrammed for the continues doses of clonidine 20 micro g a day as well as clonidine 20 micro g on demand PTM doses 6 times a day once in 4. hours. Orders: Orders MR lumbar spine wo/w con Today M96.1 - Postlaminectomy syndrome, not elsewhere classified Basic Metabolic Panel Today G89.29 - Other chronic pain, G89.4 - Chronic pain syndrome, M54.50 - Low back pain, unspecified, M96.1 - Postlaminectomy syndrome, not elsewhere classified Referrals Neurosurgery Referral G89.29 - Other chronic pain, G89.4 - Chronic pain syndrome, M54.50 - Low back pain, unspecified, M96.1 - Postlaminectomy syndrome, not elsewhere classified Medications: Refilled gabapentin 800 mg PO TID 30 days 90 tabs 6RF Coding Level of Care Code Est Pt Level 4 (53223) Procedure Only Diagnoses Osteoarthritis of right hip M16.11 Postlaminectomy syndrome M96.1 History of lumbar spinal fusion Z98.1 Lumbar degenerative disc disease M51.36 Lumbar spondylosis M47.816 Lumbar radiculopathy M54.16 Osteoarthritis, hip, bilateral M16.0 Bilateral hip pain M25.551; M25.552 Low back pain M54.50; G89.29 Back pain laterality: bilateral Chronicity: chronic Sciatica presence: without sciatica Chronic pain syndrome G89.4 Thrombocytopenia D69.6
[2023-10-14 11:18] VITALS: BP 108/60; PULSE 74; RESP 18; O2SAT 93; BMI 31.9
== END 2023-10-14 11:53 | disposition home or self-care (01) ==
PROVIDERS: PCP Internal Medicine; Visit Provider Anesthesiology
DX: M16.11 Unilateral primary osteoarthritis, right hip (principal); M96.1 Postlaminectomy syndrome, not elsewhere classified; Z98.1 Arthrodesis status; M51.36 Other intervertebral disc degeneration, lumbar region; Z45.1 Encounter for adjustment and management of infusion pump
CPT/HCPCS: 62370; 99214

== ENCOUNTER → 2023-10-14 10:55 | Outpatient (BNVA) | payer MEDICARE, MEDICAID, SELFPAY | PROVIDERS: PCP Internal Medicine; Visit Provider Anesthesiology | DX: Z45.1 Encounter for adjustment and management of infusion pump (principal); M96.1 Postlaminectomy syndrome, not elsewhere classified; M51.36 Other intervertebral disc degeneration, lumbar region; M47.26 Other spondylosis with radiculopathy, lumbar region; M16.0 Bilateral primary osteoarthritis of hip; M54.50 Low back pain, unspecified; G89.29 Other chronic pain; D69.6 Thrombocytopenia, unspecified; G89.4 Chronic pain syndrome; Z98.1 Arthrodesis status | CPT/HCPCS: 62370; 99212 ==

== ENCOUNTER 2023-10-23 12:53 | Outpatient (AMB) | payer MEDICARE, SELFPAY ==
--- NOTE | 2023-10-23 13:02 | A.SPINEOV_ITS ---
Intake Visit Reasons: LBP Intake Note: Ms. Larsen is here today c/o Low back pain. 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 Allergies bupropion [From Wellbutrin] Allergy (Intermediate, Verified 10/14/23 11:20) Itching influenza virus vaccine, specific [FLU VACCINE] Allergy (Unknown, Verified 10/14/23 11:20) RASH latex Allergy (Unknown, Verified 10/14/23 11:20) Rash Sulfa (Sulfonamide Antibiotics) Allergy (Unknown, Verified 10/14/23 11:20) UNKNOWN, itch, itching baclofen Allergy (Verified 10/23/23 13:12) twitching, falling down Assessment & Plan Assessment & Plan (1) Low back pain: Code(s): M54.5 - Low back pain Category: Medical Qualifiers: Back pain laterality: bilateral Chronicity: chronic Sciatica presence: without sciatica Qualified Code(s): M54.50 - Low back pain, unspecified; G89.29 - Other chronic pain Plan Dear Dr. De, Thank you for referring Justa to our office today. She is a pleasant 63-year- old female who comes in today with a chief complaint of low back pain and pain with ambulation. When describing her pain she states it is 10/10 everywhere. She does report that her low back is the worst source of her pain. When attempting to describe her radicular pain she states there are diffuse throughout her bilateral lower extremities. She is able to localize that she has numbness predominantly in the right anterior thigh. She denies any other sensational deficits. She has a history of 4 previous lumbar surgeries all completed by Dr. Quezada at [facility] in the . He has since retired. She reports zero resolution of pain after her surgeries in the and states she has been in constant pain for the last 30 years. She is currently on a ?pain pump? to help treat her chronic pain. She is also on 16 mg of Suboxone daily, and takes 800mg Gabapentin TID to help mitigate the pain. She states that a couple of years ago she began utilizing a walker to walk as this helps to alleviate some of her pain. She has been to physical therapy multiple times, has a chiropractor who she sees, has had many cortisone injections at [facility], and has attempted acupuncture. She states that nothing gives her relief of her pain. PMH: History of C4-7 ACDF completed at [facility]. History of L4-S1 lumbar fusion with instrumentation at L4-5 also completed at [facility]. Asthma, bipolar disorder, GERD, ADHD, insomnia, osteoarthritis, type 2 diabetes, urinary incontinence, hyperlipidemia, pelvic organ prolapse. Social hx: The patient smokes 1 pack of cigarettes per day. She denies any substance use. Medications: Veozah, trazodone, sertraline, rosuvastatin, Risperdal, pantoprazole, Linzess, gabapentin, Dulera, doxepin, divalproex, dextroamphetamin e, clotrimazole, Suboxone, Symbicort, albuterol. Allergies: Wellbutrin, flu vaccine, latex, sulfa, baclofen. Physical exam: The patient has 5/5 strength in her upper and lower extremities. She does elicit pain to strength testing of the bilateral iliopsoas. Other than this there are no significant deficits. Imaging review: MRI of the lumbar spine completed at [facility] in October of 2022 shows diffuse spondylosis of the lumbar spine with some loss of normal lordosis. There is evidence of lumbar fusion from L4-S1 with instrumentation at L4-5. From L1-L4 there are type 4 degenerative modic endplate changes. There is notable loss of disc height at L2-3 and L3-4, however there does not appear to be very significant stenosis at these levels. I would classify it as mild/moderate. CT scan of the lumbar spin completed back in 2021 shows eevidence of significant anterior osteophyte bridging without fusion at these levels. Impression: Justa is a pleasant 63-year-old female who comes in today with a chief complaint of predominantly severe low back pain that has been ongoing for the past 30 years. She has a history of multiple spine surgeries completed at [facility] all of which provided no relief for the patient. She is currently followed by our colleagues in pain management who currently have her on a pain pump. She was unwilling to discuss further interventions with them until evalu ation by Neurosurgery. The patient does have diffuse spondylosis of the lumbar spine, degenerative disc disease, and Modic endplate changes. Given this, she does not have any severe stenosis that I am able to identify that could be causing the type of pain that she is describing. She does have some straightening of the normal lumbar lordosis, but there is no significant degenerative scoliosis notable. In addition to this we extensively discussed that she has had 4 previous lumbar spine surgeries all of which were not successful. She understands that each time you have a lumbar spine surgery newer chances of positive outcomes declines. Dr. De currently has an order in for a lumbar spine MRI, and I believe we should review this once it is complete before providing the patient with any other recommendations. I provided her with one of our business cards and encouraged her to have them for the MRI results sent to us. I will call her when we have the results and are able to review them. Thank you for allowing us to care for your patient. The total time spent with this visit with this patient was 45 minutes reviewing history, physical exam, MRI imaging review, and implementation of treatment plan or further diagnostic testing Jamie Eduardo MD,PhD [facility] Coding Level of Care Code New Pt Level 4 (80317) Diagnoses Low back pain M54.50; G89.29 Back pain laterality: bilateral Chronicity: chronic Sciatica presence: without sciatica
== END 2023-10-23 13:36 | disposition home or self-care (01) ==
PROVIDERS: PCP Internal Medicine; Referring Provider Anesthesiology; Visit Provider Physician Assistant
DX: M54.50 Low back pain, unspecified (principal); G89.29 Other chronic pain
CPT/HCPCS: 99204; 99214

== ENCOUNTER → 2023-10-23 12:53 | Outpatient (BNVA) | payer MEDICARE, MEDICAID, SELFPAY | PROVIDERS: PCP Internal Medicine; Visit Provider Physician Assistant | DX: M54.50 Low back pain, unspecified (principal); G89.29 Other chronic pain | CPT/HCPCS: 99202 ==

== ENCOUNTER 2023-11-08 13:08 | Outpatient (AMB) | payer MEDICARE, SELFPAY ==
--- NOTE | 2023-11-08 13:21 | A.OFFVIS_ITS ---
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 She denies side effects on clonidine. She admits that clonidine PTM dose gives her at least 50% pain relief. She applies more doses of the medication now which is demonstrated by the reading of the pump which demonstrated 4.8 cc of left over. Unfortunately during the pump refill (see the full description as below) we notice big discrepancy between the delivered medication and documented medication. We withdrawn 11 cc of medication fluid out of the pump. Therefore the discrepancy is more than 7 mL. I need to perform a dye study on the patient if I will not be able to aspirate on a dye study CSF I need to schedule her for the revision of the intrathecal catheter. The dose of the medication PTM was increased today the concentration also was increased today because of the increase concentration patient was given bridge bolus for for 74 hours. Prior: She denies dizziness drowsiness lightheadedness secondary to her medications. She presents herself today with excess of 11 cc of the medication. We discussed situation at hands. I offered her to reprogrammed her machine for 6 applications at equal times every 4 hours of the extra clonidine doses. The patient wants to be able to apply PTM doses on herself. With flexible doses she will lose ability to use PTM. She is also upset to the fact that she needs to walk flexed forward using walker. She states that it has a 63 years old she should not be walking like this. She insists on sending her to MRI and eventually to a neurosurgeon to evaluate her spine. She requests me to increase her PTM doses. I increased it to 26 mg from 20 mg. Her next pump refill in 23 days now. We will have to double the concentration of the medication to 800 micro g of clonidine. She told me that she lost her gabapentin pills. I will prescribe her 1 extra prescription of gabapentin. Prior: results of the trial of intrathecal drug delivery system pain pump. She reported 2 days of 50% pain reduction. She reported that her activities of daily living improved, her mobility remain the same mostly on the account of right hip pain. She had significant right hip arthritis. She received intra- articular hip injections in the past with no result. She requests me to send her for orthopedic surgery consult in relation to THR on the left. As of her pain pump she would like me to schedule her for implantation of intrathecal drug delivery system pain pump. Risks and benefits were carefully explained to the patient. She does not want to continue trialing. She requests me to prescribe her motorized scooter to improve her mobility. I will issue prescription to her on paper. She will bring it to [facility]. She is suffering from postlaminectomy syndrome. She has pain in the lower back with minimal radiation bilaterally. She reports that she had 4 surgeries on her lumbar spine on her x-ray of the lumbar spine there is intradiscal hardware at L5-S1 interspace as well as L4-5 interspace and there is also transpedicular screws and rods fusing L4-5 vertebra as. I send her to MRI of the lumbar spine results of which dictated as below. She has multiple changes in the MRI specially above the level of her fusion. She has reversal of spinal lordosis. She has kissing osteophytes of the L1 through L3 and into L4 lumbar vertebra as. Those are most seen on the x-ray which was done for her as well. She has Modic type 1 changes in upper lumbar vertebras. She has minimal facet arthritis and ligamentum flavum thickening. There is no spinal canal or foraminal stenosis on any levels. Therefore I think that this patient is suffering from postlaminectomy syndrome. I would like to consider neuromodulation for her including pain pump and spinal cord stimulator. She past psych evaluation. She has negative about spinal cord stimulation and insisted on intrathecal drug delivery system pain pump. Also there is significant Modic changes which could be addressed with intracept procedure. All this options were again given to the patient. She would like to proceed with bupivacaine pain pump. The patient after consideration decided that she wants to go for the pain pump. She adamantly refused to try spinal cord stimulator. She said that she had spinal cord stimulator in the past and it did not work for her. I offered her also intrasept procedure but she adamantly refused to go for intracept as well. She is on Suboxone for OUD. Risks and benefits of the procedure were explained today to the patient. The pa nannette will be scheduled for trial. [facility] Medical History (Updated 10/11/23 @ 11:35 by Melissa Topete MD) Vasomotor symptoms due to menopause Impaired fasting glucose Smoker unmotivated to quit Cough present for greater than 3 weeks Hair thinning Prolapse of female pelvic organs Bilateral finger arthralgia Coccyx pain Diabetes mellitus with diabetic neuropathy, without long-term current use of insulin Pain or burning when swallowing Heartburn Hepatomegaly Osteoarthritis, hip, bilateral Bilateral hip pain Lumbar spondylosis Bilateral groin pain Depressive 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 History of pneumonia Vitamin B12 deficiency Vitamin D deficiency Insomnia ADHD Community acquired bilateral lower lobe pneumonia Injury of left heel Cough Cigarette smoker motivated to quit Dysuria Left shoulder pain Dyslipidemia Low back pain Lumbar degenerative disc disease Mixed incontinence urge and stress TEA on CPAP Opiate addiction Depression COPD (chronic obstructive pulmonary disease) Surgical History (Updated 10/11/23 @ 11:35 by Melissa Topete MD) H/O neck surgery Status post sleeve gastrectomy History of lumbar spinal fusion H/O colonoscopy Hx of cholecystectomy History of partial hysterectomy H/O tubal ligation History of lumbar fusion Family History Father Aneurysm Other No family history of cancer Social History Household Members: Children Household Members Other:: daughter Housing: House Are you a primary critical care paramedic to a significant other at home: No Do you presently have visiting nurse or other home services: No Alcohol intake: never Comment: NOT INDICATED Patient Tobacco Use Status: Current everyday Tobacco user Tobacco use type: Cigarette Cigarettes Per Day: 10 e-Cigarette/Vaping Use: Currently Using Second Hand Smoke Exposure: Yes service: No Current occupational status: unemployed Cognitive needs: Yes (walker) Hearing needs: No Vision needs: Yes (glasses) Review of Systems Const All systems reviewed & are unremarkable except as noted in HPI and below Physical Exam Vital Signs: Last Vital Signs Pulse 76 11/08/23 13:28 BP 107/56 L 11/08/23 13:28 Pulse Ox 98 11/08/23 13:28 Oxygen Delivery Method Room Air 11/08/23 13:28 BMI result Body Mass Index 31.9 Const General: cooperative, alert, awake, in distress (due to pain) mild and moderate and anxious Nutritional Appearance: obese morbidly obese Limitations: ambulation with walker HEENT Head: Yes normal to inspection, Yes normocephalic and No occipital foramen tenderness Ears: hearing grossly normal bilaterally and external ears normal Face and sinus: Yes normal facial exam and Yes face symmetric Eyes General: appearance normal, both eyes and all related structures Visual Evangelista: normal visual evangelista by confrontation EOM: EOMs intact bilaterally Neck Neck: Yes normal visual inspection, Yes full ROM, Yes no lymphadenopathy, Yes supple, No anterior neck swelling and Yes no JVD Chest Chest palpation & inspection: normal inspection of the chest Resp Effort & Inspection: normal respiratory effort, able to speak in complete sentences, no audible wheezes, no cough, no respiratory distress and symmetric chest movement Cardio Jugular venous distension: no JVD Bruits: no carotid bruits Peripheral pulses: radial pulses present, posterior tibial pulses present and dorsalis pedis present GI Inspection: Yes normal to inspection, No distended, Yes Abdominal panniculus present and Yes obesity Palpation (GI): Soft to palpation and nontender General: Yes no CVA tenderness Back/Spine/Pelvis Other: Limited exam due to significant back and groin pain with movements or walking, able to stand on heels and tip toes with moderate difficulty due to pain. Can flex forward up to 50-60 degrees and extend to 5-10 degrees before experiencing moderate lumbar pain. Facet loading positive bilaterally, ROM limited to pain. Demonstrates 4/5 strength of quadriceps bilaterally as well as flexion/dorsiflexion of bilateral feet against resistance. 2+ pedal pulses bilaterally. Straight leg rise with dorsiflexion positive on the left. Significant groin pain with bilateral internal and external hip rotations. Antalgic gate, ambulates slowly with walker. Lateral and medial left hip rotation causes significant groin discomfort. The patient also reports groin pain with walking Back: no CVA tenderness Cervical Spine: cervical ROM normal Thoracic/Lumbar Spine: thoracic and lumbar spine normal to inspection, Thoracic/lumbar spine scar(s), Lasegue's sign positive, pain with thoraco-lumbar ROM, paraspinal muscle tenderness, thoraco-lumbar ROM limited with forward flexion (WNL) and with lateral flexion to the left (limited by pain) and straight leg raise positive left other (at 20 degrees) Pelvis: pain with anterior-posterior compression, pain with lateral compression, buttock tenderness bilaterally and no sciatic notch tenderness Skin General skin exam: no rashes or lesions noted Extrem General: Yes full ROM, Yes capillary refill normal, Yes no clubbing, cyanosis or edema and Yes no calf tenderness Psych Appearance: grossly normal Mental Status: mental status grossly normal Speech and movement: Normal speech and movement present, Pressured speech present and Psychomotor agitation in speech present Affect: normal affect and Irritable affect present Attitude: cooperative and Avoids eye contact (attititude/behavior) Thought process: Normal thought process present and Circumstantial thought process present Thought content: Normal thought content present Assessment & Plan Assessment & Plan (1) Low back pain: Code(s): M54.5 - Low back pain Category: Medical Qualifiers: Back pain laterality: bilateral Chronicity: chronic Sciatica presence: without sciatica Qualified Code(s): M54.50 - Low back pain, unspecified; G89.29 - Other chronic pain Plan: Patient with chronic pain syndrome related to arthritis and degenerative changes of her lumbar spine, s/p 5 back surgeries with lumbar fusion. MRI demonstrated no No spinal canal stenosis. The vertebras above the fusion are demonstrating Modic 1 type changes which could be another pain generator for her. She reports most significant pain when she is laying in bed. She is adamantly negative about intercept procedure. She insistence sending her for yet another MRI and send her for evaluation with neurosurgeon. I will refer her to Dr. Eduardo. (2) Osteoarthritis of right hip: Code(s): M16.11 - Unilateral primary osteoarthritis, right hip Category: Medical (3) Postlaminectomy syndrome: Code(s): M96.1 - Postlaminectomy syndrome, not elsewhere classified Category: Medical (4) History of lumbar spinal fusion: Code(s): Z98.1 - Arthrodesis status Category: Surgical (5) Lumbar degenerative disc disease: Code(s): M51.36 - Other intervertebral disc degeneration, lumbar region Category: Medical (6) Lumbar spondylosis: Code(s): M47.816 - Spondylosis without myelopathy or radiculopathy, lumbar region Category: Medical (7) Lumbar radiculopathy: Code(s): M54.16 - Radiculopathy, lumbar region Category: Medical (8) Osteoarthritis, hip, bilateral: Code(s): M16.0 - Bilateral primary osteoarthritis of hip Category: Medical (9) Bilateral hip pain: Code(s): M25.551 - Pain in right hip; M25.552 - Pain in left hip Category: Medical (10) Chronic pain syndrome: Code(s): G89.4 - Chronic pain syndrome Category: Medical Plan: (11) Thrombocytopenia: Code(s): D69.6 - Thrombocytopenia, unspecified Category: Medical Plan: Because of very big discrepancy between delivered medication and medication pump considered to be delivered total of 7 cc I will schedule this patient for dye study. She will go to MRI at [facility], she did not fit to our MRI machine After new MRI will be available she will repeat her visit to neuro spine. They examined her and they waiting to see a fresh MRI. I also discussed with her possibility of putting her on Prialt she is unable to afford it full [place] but she wants to discuss it with the manufacture so maybe they will provide discount for her. Plan Intrathecal pump refill. The patient came today to the office to change medication in her pain pump. Today she will be refilled with 20 cc of clonidine 800 micro g per mL The pump was interrogated and the residual amount of fluid was found to be 4.8 mL. SHE WAS POSITIONED prone on the bed AND THE AREA OF THE INTRATHECAL PUMP WAS PREPPED WITH CHLORAPREP. The fenestrated drape was sterilely applied over the area of the pump. Sterile gloves were worn and of the aspiration system was assembled containing 2 in 22 gauge noncoring needle, the needle was connected to extension tubing which was connected to the 20 cc sterile syringe. The pain pump was palpated under the skin in the patient's right buttock area. The needle was inserted through the skin and the central plug of the pain pump and fluid was aspirated. The clear fluid was going into the syringe the total amount of the fluid was 11.0 mL .. After that a new batch? of medication was obtained which was containing clonidine 800 micro g per mL. The admixture was made in 20 cc syringe prepared by [facility] compounding pharmacy. The syringe was connected to the bacterial filter, and then connected to the extension tubing. After that the medication in the syringe was slowly instilled into the pump with aspirations at 15 and 5 cc [place].? The pump was reprogrammed for the continues doses of clonidine 32 micro g a day as well as clonidine 32 micro g on demand PTM doses 6 times a day once in 4. hours. Coding Level of Care Code Est Pt Level 3 (29343) Procedure Only Diagnoses Low back pain M54.50; G89.29 Back pain laterality: bilateral Chronicity: chronic Sciatica presence: without sciatica Osteoarthritis of right hip M16.11 Postlaminectomy syndrome M96.1 History of lumbar spinal fusion Z98.1 Lumbar degenerative disc disease M51.36 Lumbar spondylosis M47.816 Lumbar radiculopathy M54.16 Osteoarthritis, hip, bilateral M16.0 Bilateral hip pain M25.551; M25.552 Chronic pain syndrome G89.4 Thrombocytopenia D69.6
[2023-11-08 13:28] VITALS: BP 107/56; PULSE 76; O2SAT 98; BMI 31.9
== END 2023-11-08 13:55 | disposition home or self-care (01) ==
PROVIDERS: PCP Internal Medicine; Visit Provider Anesthesiology
DX: G89.29 Other chronic pain (principal); M54.50 Low back pain, unspecified; M16.11 Unilateral primary osteoarthritis, right hip; M96.1 Postlaminectomy syndrome, not elsewhere classified; Z45.1 Encounter for adjustment and management of infusion pump; Z98.1 Arthrodesis status; M51.36 Other intervertebral disc degeneration, lumbar region; M47.816 Spondylosis without myelopathy or radiculopathy, lumbar region; M54.16 Radiculopathy, lumbar region; M16.0 Bilateral primary osteoarthritis of hip; M25.551 Pain in right hip; M25.552 Pain in left hip; G89.4 Chronic pain syndrome; D69.6 Thrombocytopenia, unspecified
CPT/HCPCS: 62370; 99213

== ENCOUNTER → 2023-11-08 13:08 | Outpatient (BNVA) | payer MEDICARE, SELFPAY | PROVIDERS: PCP Internal Medicine; Visit Provider Anesthesiology | DX: M16.11 Unilateral primary osteoarthritis, right hip (principal); M96.1 Postlaminectomy syndrome, not elsewhere classified; M51.36 Other intervertebral disc degeneration, lumbar region; M47.816 Spondylosis without myelopathy or radiculopathy, lumbar region; M16.0 Bilateral primary osteoarthritis of hip; M25.511 Pain in right shoulder; M25.552 Pain in left hip; G89.4 Chronic pain syndrome; Z45.1 Encounter for adjustment and management of infusion pump; Z98.1 Arthrodesis status | CPT/HCPCS: 62370; 99212 ==

== ENCOUNTER 2023-12-18 12:03 | Outpatient (AMB) | payer OTHER, SELFPAY ==
--- NOTE | 2023-12-18 12:06 | MHC.OFFVIS ---
Vital Signs 12/18/23 12:07 Height 5 ft 3 in Weight 195 lb 2 oz BMI 34.6 BP 114/80 Blood Pressure Location Rt brachial Position Sitting Pulse 78 Pulse Source Pulse Oximeter Temp 98.1 F Temp Source Oral Pulse Oximetry (%) 94 Oxygen Delivery Method Room Air Intake Visit Reasons: EP Bad cough Intake Note: Justa is a 63 year old female who presents to the office today for c/o a bad cough that has been going on for about a month. Pt states she had a collapsed lung years ago and is concerned about this. Allergies bupropion [From Wellbutrin] Allergy (Intermediate, Verified 12/18/23 12:10) Itching influenza virus vaccine, specific [FLU VACCINE] Allergy (Unknown, Verified 12/18/23 12:10) RASH latex Allergy (Unknown, Verified 12/18/23 12:10) Rash Sulfa (Sulfonamide Antibiotics) Allergy (Unknown, Verified 12/18/23 12:10) UNKNOWN, itch, itching baclofen Allergy (Verified 12/18/23 12:10) twitching, falling down HPI HPI EP Bad cough: Details: This note is constructed using voice recognition software. While every effort has been made to ensure accuracy, broke beater operator errors may have been included. The patient is a 63 year old female who presents to the clinic today with cough for the past 1-2 months. She has an extensive smoking history, started smoking at age 18. She is actively trying to quit smoking, has a patch on right now. She notes that she has been coughing thick clear secretions, which keep her up at night. She reports dyspnea with exertion, but denies fever, chills, dyspnea at rest. She has had history of pneumonia twice, as well as having lung collapse x2, so she was nervous given the prolonged cough. [facility] Medical History Vasomotor symptoms due to menopause Impaired fasting glucose Smoker unmotivated to quit Cough present for greater than 3 weeks Hair thinning Prolapse of female pelvic organs Bilateral finger arthralgia Coccyx pain Diabetes mellitus with diabetic neuropathy, without long-term current use of insulin Pain or burning when swallowing Heartburn Hepatomegaly Osteoarthritis, hip, bilateral Bilateral hip pain Lumbar spondylosis Bilateral groin pain Depressive 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 History of pneumonia Vitamin B12 deficiency Vitamin D deficiency Insomnia ADHD Community acquired bilateral lower lobe pneumonia Injury of left heel Cough Cigarette smoker motivated to quit Dysuria Left shoulder pain Dyslipidemia Low back pain Lumbar degenerative disc disease Mixed incontinence urge and stress TEA on CPAP Opiate addiction Depression COPD (chronic obstructive pulmonary disease) Surgical History H/O neck surgery Status post sleeve gastrectomy History of lumbar spinal fusion H/O colonoscopy Hx of cholecystectomy History of partial hysterectomy H/O tubal ligation History of lumbar fusion Family History Father Aneurysm Other No family history of cancer Social History Household Members: Children Household Members Other:: daughter Housing: House Are you a primary healthcare administration internship to a significant other at home: No Do you presently have visiting nurse or other home services: No Alcohol intake: never Comment: NOT INDICATED Patient Tobacco Use Status: Current everyday Tobacco user Tobacco use type: Cigarette Cigarettes Per Day: 10 e-Cigarette/Vaping Use: Currently Using Second Hand Smoke Exposure: Yes service: No Current occupational status: unemployed Cognitive needs: Yes (walker) Hearing needs: No Vision needs: Yes (glasses) Review of Systems Const All systems reviewed & are unremarkable except as noted in HPI and below Physical Exam Vital Signs: Last Vital Signs Temp 98.1 F 12/18/23 12:07 Pulse 78 12/18/23 12:07 BP 114/80 12/18/23 12:07 Pulse Ox 94 12/18/23 12:07 Oxygen Delivery Method Room Air 12/18/23 12:07 BMI result Body Mass Index 34.6 Const General: cooperative, healthy appearing, comfortable and no acute distress Orientation/consciousness: patient oriented x3 Limitations: no limitations HEENT Head: Yes normal to inspection Ears: hearing grossly normal bilaterally, external ears normal and TM's normal bilaterally General nose exam: Normal external nose present, Normal nares present and No nasal discharge present Face and sinus: Yes normal facial exam and Yes sinuses nontender Mouth: Normal oral and palatal mucosa present and moist mucous membranes Throat: Yes posterior oropharynx normal, Yes tonsils normal and Yes uvula midline Eyes General: appearance normal, both eyes and all related structures Neck Neck: Yes normal visual inspection Resp Effort & Inspection: normal respiratory effort, able to speak in complete sentences, Actively coughing, no respiratory distress, not tachypneic, no tripod positioning and no use of accessory muscles Auscultation: clear to auscultation bilaterally (But slightly decreased in the right lower lobe) Cardio Jugular venous distension: no JVD Rate: regular rate Rhythm: regular rhythm Heart sounds: S1 normal heart sound present, S2 normal heart sound present, no click, no gallops, no murmurs and no rubs Skin General skin exam: no rashes or lesions noted, elasticity normal and turgor normal Neuro General: patient oriented x3 Extrem General: Yes normal to inspection and Yes no clubbing, cyanosis or edema Assessment & Plan Assessment & Plan (1) Atypical pneumonia: Code(s): J18.9 - Pneumonia, unspecified organism Plan: Antimicrobial sent to requested pharmacy. Did order chest x-ray today due to prolonged cough for additional evaluation, however patient is unsure if she will be able to obtain this today, and may be obtaining this tomorrow. Advised follow up with worsening symptoms or failure to resolve. Plan See above for full details and plan. Orders: Orders XR chest 2V Today R05.9 - Cough, unspecified Medications: New azithromycin For 250 mg dose pack: take 500 mg today (day 1), then 250 mg for 4 days (days 2-5) PO 6 tabs 0RF Coding Level of Care Code Est Pt Level 4 (55596) Diagnoses Atypical pneumonia J18.9
[2023-12-18 12:07] VITALS: BP 114/80; PULSE 78; TEMP 36.7; O2SAT 94; BMI 34.6
== END 2023-12-18 13:07 | disposition home or self-care (01) ==
PROVIDERS: PCP Internal Medicine; Visit Provider Registered Nurse
DX: J18.9 Pneumonia, unspecified organism (principal)
CPT/HCPCS: 99214

== ENCOUNTER 2023-12-19 21:31 | Inpatient (IN) | payer MEDICARE, SELFPAY ==
--- NOTE | ~2023-12-19 | XR_ITS ---
EXAMINATION: XR CHEST CLINICAL INFORMATION: Hypoxia COMPARISON: Chest x-ray on 12/20/2023 TECHNIQUE: Frontal view of the chest was obtained. FINDINGS: The cardiac silhouette is normal. There is mild diffuse bronchial wall thickening. Trace hazy opacity at the right lung base. There are no pleural effusions or pneumothoraces. The bones and soft tissues are unremarkable for the patient's age. XR/XR chest 1V IMPRESSION: Bronchial wall thickening and trace hazy opacity at the right lung base may be infectious and/or inflammatory in etiology. Electronically signed by: Rosa Mendez MD 12/22/2023 09:48 AM EDT
--- NOTE | ~2023-12-19 | XR_ITS ---
EXAMINATION: XR CHEST CLINICAL INFORMATION: Respiratory failure COMPARISON: Chest x-ray December 22, 2023 TECHNIQUE: Frontal view of the chest was obtained. FINDINGS: Mild pulmonary vascular congestion. Small right pleural effusion and bibasilar linear atelectasis. No pneumothorax. Cardiac mediastinal silhouette is within normal limits. Soft tissue and osseous structures are unremarkable. Partially evaluated cervical fusion hardware. XR/XR chest 1V IMPRESSION: Small right pleural effusion and bibasilar streaky atelectasis. No large airspace consolidation. Electronically signed by: Miles Parks DO 12/23/2023 09:58 PM EDT
--- NOTE | ~2023-12-19 | CT_ITS ---
EXAMINATION: CT ABDOMEN AND PELVIS WITH CONTRAST CLINICAL INFORMATION: Diffuse abdominal pain. Altered mental status. COMPARISON: CT abdomen/pelvis dated 09/18/2021. TECHNIQUE: Multidetector volumetric images were obtained from the superior aspect of the liver through the pubic symphysis following administration 85 mL of Omnipaque 350 intravenous contrast. Sagittal and coronal reformatted images were obtained on the technologist's workstation. Oral contrast: No This CT examination was performed using dose optimization techniques as appropriate, variously including the following: *Automated exposure control *Adjustment of mA and/or kV according to patient size (this includes techniques or standardized protocols for targeted exams where dose is matched to indication/reason for exam; i.e. extremities or head) *Use of iterative reconstruction technique DLP: 730 mGy-cm FINDINGS: LUNG BASES: The visualized lung bases are unremarkable. LIVER, GALLBLADDER, AND BILIARY TREE: The liver is enlarged, unchanged. Normal contour and attenuation.. No focal hepatic lesion or biliary ductal dilatation is present. Status post cholecystectomy. PANCREAS: Atrophic without ductal dilatation or inflammatory change. SPLEEN: Unremarkable. ADRENAL GLANDS: Unremarkable. KIDNEYS AND URETERS: The kidneys are normal in size, shape, and attenuation. No hydronephrosis, hydroureter, or calculi seen. No perinephric stranding. BLADDER: Unremarkable. GASTROINTESTINAL TRACT: Status post sleeve gastrectomy. Circumferential wall thickening of the distal ileum extending to the ileocecal junction with wall enhancement. The bowel loops are fluid-filled with adjacent stranding. No bowel wall pneumatosis. No significant cecal wall thickening or inflammatory change. No small or large bowel obstruction. Unremarkable appendix. Mild stool burden throughout the colon. PERITONEAL CAVITY: Trace fluid/stranding in the right lower quadrant adjacent to the inflamed small bowel loops. No intra-abdominal free air. No abscess formation. ABDOMINAL WALL: No significant hernia is appreciated. LYMPH NODES: No significant lymphadenopathy. VASCULAR: Unremarkable. PELVIC VISCERA: Status post hysterectomy. OSSEOUS STRUCTURES: No acute osseous abnormality. Postsurgical change and degenerative disc disease within the lumbar spine is redemonstrated. Pain pump within the left posterior soft tissues. CT/CT abdomen pelvis w IV con IMPRESSION: 1. Circumferential wall thickening and enhancement of the distal ileum extending to the ileocecal junction. The bowel loops are fluid-filled with adjacent stranding and trace fluid. No bowel wall pneumatosis. No significant cecal wall thickening or inflammatory change. Findings can be seen in the setting of an infectious or inflammatory enteritis. 2. No small or large bowel obstruction. Unremarkable appendix. Mild stool burden throughout the colon. 3. No intra-abdominal mass, lymphadenopathy, or ascites. Fleischner guidelines were followed. Electronically signed by: Emir Marrero MD 12/20/2023 06:26 AM EDT
--- NOTE | ~2023-12-19 | XR_ITS ---
EXAMINATION: XR CHEST XR PELVIS XR LEFT FEMUR CLINICAL INFORMATION: Pain. Pneumonia. COMPARISON: February 28, 2023 and December 20, 2022 TECHNIQUE: 2 views of the chest were obtained. 4 views of the left femur were obtained. AP view of the pelvis. FINDINGS: Chest: The lungs are well-expanded. No focal consolidation. No pleural effusion. Cardiac silhouette is unchanged. Pelvis: The sacrum is partially obscured. There is mild to moderate inferomedial cartilage space loss and hypertrophic lipping. There is left-sided acetabular over coverage. There is excreted contrast within the urinary bladder. There are sclerotic changes of the sacroiliac joints. Partial imaging of lumbar fusion hardware. A device projects over the left iliac bone. Left femur: Alignment is anatomic. No displaced fracture or dislocation. No abnormal soft tissue calcifications. XR/XR pelvis 1-2V IMPRESSION: No acute abnormality. Electronically signed by: Yinka Cartagena MD 12/20/2023 09:09 AM EDT
--- NOTE | ~2023-12-19 | XR_ITS ---
EXAMINATION: XR CHEST XR PELVIS XR LEFT FEMUR CLINICAL INFORMATION: Pain. Pneumonia. COMPARISON: February 28, 2023 and December 20, 2022 TECHNIQUE: 2 views of the chest were obtained. 4 views of the left femur were obtained. AP view of the pelvis. FINDINGS: Chest: The lungs are well-expanded. No focal consolidation. No pleural effusion. Cardiac silhouette is unchanged. Pelvis: The sacrum is partially obscured. There is mild to moderate inferomedial cartilage space loss and hypertrophic lipping. There is left-sided acetabular over coverage. There is excreted contrast within the urinary bladder. There are sclerotic changes of the sacroiliac joints. Partial imaging of lumbar fusion hardware. A device projects over the left iliac bone. Left femur: Alignment is anatomic. No displaced fracture or dislocation. No abnormal soft tissue calcifications. XR/XR femur LT 2V IMPRESSION: No acute abnormality. Electronically signed by: Yinka Cartagena MD 12/20/2023 09:09 AM EDT
--- NOTE | ~2023-12-19 | XR_ITS ---
EXAMINATION: XR CHEST XR PELVIS XR LEFT FEMUR CLINICAL INFORMATION: Pain. Pneumonia. COMPARISON: February 28, 2023 and December 20, 2022 TECHNIQUE: 2 views of the chest were obtained. 4 views of the left femur were obtained. AP view of the pelvis. FINDINGS: Chest: The lungs are well-expanded. No focal consolidation. No pleural effusion. Cardiac silhouette is unchanged. Pelvis: The sacrum is partially obscured. There is mild to moderate inferomedial cartilage space loss and hypertrophic lipping. There is left-sided acetabular over coverage. There is excreted contrast within the urinary bladder. There are sclerotic changes of the sacroiliac joints. Partial imaging of lumbar fusion hardware. A device projects over the left iliac bone. Left femur: Alignment is anatomic. No displaced fracture or dislocation. No abnormal soft tissue calcifications. XR/XR chest 2V IMPRESSION: No acute abnormality. Electronically signed by: Yinka Cartagena MD 12/20/2023 09:09 AM EDT
--- NOTE | ~2023-12-19 | US_ITS ---
EXAMINATION: US TRIPLEX LOWER EXTREMITY, LEFT CLINICAL INFORMATION: Bilateral lower extremity swelling COMPARISON: None available. TECHNIQUE: Color-flow triplex imaging with spectral analysis and compression Doppler were performed on the left lower extremity. FINDINGS: Respiratory variation, normal compression and augmented flow are noted throughout the left lower extremity. The visualized common femoral vein, superficial femoral vein, profunda femoral vein, popliteal vein and midcalf peroneal and posterior tibial venous segments show no evidence of deep venous thrombosis. There is no Laurent's cyst. US/US venous duplex LE LT IMPRESSION: No evidence of deep venous thrombosis involving the left lower extremity. Electronically signed by: Keagan Still MD 12/20/2023 07:59 AM EDT
--- NOTE | ~2023-12-19 | CT_ITS ---
EXAMINATION: CT HEAD WITHOUT CONTRAST CLINICAL INFORMATION: Altered mental status. COMPARISON: None available. TECHNIQUE: Contiguous axial imaging was performed from the skull base to vertex without intravenous administration of contrast. This CT examination was performed using dose optimization techniques as appropriate, variously including the following: *Automated exposure control *Adjustment of mA and/or kV according to patient size (this includes techniques or standardized protocols for targeted exams where dose is matched to indication/reason for exam; i.e. extremities or head) *Use of iterative reconstruction technique DLP: 709 mGy-cm FINDINGS: The lateral, third and fourth ventricles are normally outlined. The cortical sulci and basal cisterns are normally outlined as well. There is no acute territorial defect, hemorrhage or midline shift. The extra-axial spaces are unremarkable. Calvarium/scalp: Intact. Maxillofacial sinuses and mastoids: There is visualized. CT/CT head/brain wo IV con IMPRESSION: No acute intracranial process seen. Electronically signed by: Ludin Real MD 12/20/2023 04:56 AM EDT
[2023-12-19 22:34] VITALS: BP 94/61; PULSE 69; RESP 16; TEMP 36.9; O2SAT 95; BMI 30.9
[2023-12-20] VITALS (10 sets, daily range): BP systolic 141–184; BP diastolic 69–86; PULSE 72–80; RESP 12–20; TEMP 36.5–36.7; O2SAT 85–96
--- NOTE | 2023-12-20 00:56 | MHC.EDTECH ---
Patient ambulated to the bathroom slow steady gait,[facility] obtained and sent to lab.
[2023-12-20 01:01] LABS: Appearance Urine Clear; Color Urine Yellow; Glucose Urine UA Negative (Negative); Leukocyte Esterase Urine Small (1+) (Negative); Nitrite Urine Negative (Negative); PH 5.5 (5.0-9.0); Specific Gravity - Urine 1.025 (1.005-1.025); UMIC TRIGGER UACC YES; Urine Blood Negative (Negative); Urine Ketones Trace mg/dL (Negative); Urine Protein Negative (Neg-Trace)
[2023-12-20 01:14] LABS: Bacteria Urine None Seen (None Seen); Calcium Oxalate Crystals Urine Present; Hyaline Casts Urine 0-2 /LPF (0-2); UACC Culture Trigger YES
--- NOTE | 2023-12-20 01:56 | ECG_ITS ---
Test Reason : ABD PAIN Blood Pressure : / mmHG Vent. Rate : 073 BPM Atrial Rate : 073 BPM P-R Int : 136 ms QRS Dur : 078 ms QT Int : 410 ms P-R-T Axes : 080 066 063 degrees QTc Int : 451 ms Normal sinus rhythm Normal ECG When compared with ECG of 17-SEP-2021 23:15, QT has lengthened Referred By: Esme Hernandez Electronically Signed By:HIRO DO
--- NOTE | 2023-12-20 01:59 | ED.GENADULT ---
HPI - General Adult General Chief complaint: General Medical Stated complaint: pneumonia, leg pain, stomach pain Time Seen by Provider: 12/20/23 01:47 Source: patient and family Mode of arrival: EMS Limitations: no limitations History of Present Illness ED Provider: Dr. Esme Hernandez HPI narrative: Patient comes to the emergency room accompanied by her sister. According to the patient's sister, the patient came in complaining of abdominal pain, then left leg pain, also recently diagnosed with pneumonia, being treated with azithromycin. when I walked into the patient's room, patient is very somnolent. Patient wakes up, answers yes no questions and falls back asleep. According to the patient's sister, patient took her nighttime medications prior to coming in. Seems that patient takes trazodone 400 mg at bedtime. Patient states that she has no abdominal pain, only leg pain. however, patient's sister who is at bedside states that earlier today, she received a phone call from the patient, patient was crying saying that her abdomen hurt quite a bit was crying, and requested to bring her to the hospital Related Data Home Medications ?Medication ?Instructions ?Recorded ?Confirmed buprenorphine 8 mg-naloxone 2 mg 1 strip sublingual BID 09/18/21 10/12/23 sublingual film dextroamphetamine-amphetamine 30 30 mg PO BID@0900,1300 09/18/21 10/12/23 mg tablet risperidone 2 mg tablet (Risperdal) 2 mg PO BEDTIME 09/18/21 10/12/23 trazodone 100 mg tablet 3 tab PO BEDTIME 03/05/22 10/12/23 sertraline 100 mg tablet 100 mg PO QAM 07/31/22 10/12/23 divalproex 500 mg tablet,extended 1,500 mg PO QPM 08/13/22 10/12/23 release 24 hr dextroamphetamine-amphetamine 10 1 tab PO DAILY 06/28/23 10/12/23 mg tablet doxepin 50 mg capsule 50 mg PO BEDTIME 06/28/23 09/26/23 risperidone 3 mg tablet 3 mg PO BEDTIME 11/08/23 Previous Rx's ?Medication ?Instructions ?Recorded diclofenac sodium 1 % topical gel 2 g topical QID PRN pain and 08/28/22 stiffness in fingers #100 grams albuterol sulfate 2.5 mg/3 mL 2.5 mg (3 mL) inhalation Q6H PRN 08/30/22 (0.083 %) solution for nebulization shortness of breath or wheezing #90 mL albuterol sulfate 90 mcg/actuation 2 puff PO QID PRN wheezing #8.5 02/24/23 aerosol inhaler (Ventolin HFA) grams budesonide-formoterol HFA 160 2 puff inhalation Q12H #10.2 grams 04/10/23 mcg-4.5 mcg/actuation aerosol inhaler (Symbicort) Dulera 200 mcg-5 mcg/actuation HFA 2 puff inhalation Q12H #8.8 grams 04/11/23 aerosol inhaler (mometasone-formoterol) clotrimazole 1 % topical cream 1 appl topical BID #90 grams 06/27/23 Veozah 45 mg tablet (fezolinetant) 45 mg PO DAILY #30 tabs 06/28/23 acetaminophen 650 mg 650 mg PO Q8H PRN pain #30 tabs 07/16/23 tablet,extended release (Tylenol Arthritis Pain) rosuvastatin 5 mg tablet 5 mg PO DAILY #30 tabs 10/11/23 gabapentin 800 mg tablet 800 mg PO TID 30 days #90 tabs 10/14/23 linaclotide 290 mcg capsule 290 mcg PO QAM #30 caps 11/07/23 (Linzess) pantoprazole 40 mg tablet,delayed 40 mg PO DAILY #90 tabs 11/20/23 release azithromycin 250 mg tablet See Rx Instructions PO .COMPLEX #6 12/18/23 tabs Allergies Allergy/AdvReac Type Severity Reaction Status Date / Time bupropion [From Wellbutrin] Allergy Intermediate Itching Verified 12/19/23 22:35 influenza virus vaccine, Allergy Unknown RASH Verified 12/19/23 22:35 specific [FLU VACCINE] latex Allergy Unknown Rash Verified 12/19/23 22:35 Sulfa (Sulfonamide Allergy Unknown UNKNOWN, Verified 12/19/23 22:35 Antibiotics) itch, itching baclofen Allergy twitching, Verified 12/19/23 22:35 falling down Review of Systems Review of Systems: Constitutional : No Weight loss, No Fever, No Chills, No Night Sweats, No Fatigue, No Malaise ENT/Mouth : No Hearing loss, No Ear Pain, No Nasal Congestion, No Sinus Pain, No Hoarseness, No sore throat, No Rhinorrhea, No Swallowing Difficulty Eyes: No Eye Pain, No Swelling, No Redness, No Foreign Body, No Discharge, No Vision Changes Cardiovascular : No Chest Pain, No SOB, No Dyspnea on Exertion, No Orthopnea, No Edema, No Palpitations Respiratory : No Cough, No Sputum, No Wheezing, No Smoke Exposure, No Dyspnea Gastrointestinal : No Nausea, No Vomiting, No Diarrhea, No Constipation, No abdominal Pain, No Hematochezia, No Melena Genitourinary : no irregular bleeding, No Dysuria, No Urinary Frequency, No Hematuria, No Urinary Incontinence, No Urgency, No Flank Pain, No Urinary Flow Changes, No Hesitancy Musculoskeletal : complaining of leg pain, No Myalgias, No Joint Swelling Skin : No Skin Lesions, No rash Neuro : No Weakness, No Numbness, No Paresthesias, No Loss of Consciousness, No Dizziness, No Headache Psych : No Anxiety/Panic, No Depression, No SI/HI/AH/VH, No Social Issues, Heme/Lymph: No Bruising, No Bleeding,No Lymphadenopathy Endocrine : No Polyuria, No Polydipsia, No Temperature Intolerance [facility] Past Medical History Medical History Vasomotor symptoms due to menopause Impaired fasting glucose Smoker unmotivated to quit Cough present for greater than 3 weeks Hair thinning Prolapse of female pelvic organs Bilateral finger arthralgia Coccyx pain Diabetes mellitus with diabetic neuropathy, without long-term current use of insulin Pain or burning when swallowing Heartburn Hepatomegaly Osteoarthritis, hip, bilateral Bilateral hip pain Lumbar spondylosis Bilateral groin pain Depressive 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 History of pneumonia Vitamin B12 deficiency Vitamin D deficiency Insomnia ADHD Community acquired bilateral lower lobe pneumonia Injury of left heel Cough Cigarette smoker motivated to quit Dysuria Left shoulder pain Dyslipidemia Low back pain Lumbar degenerative disc disease Mixed incontinence urge and stress TEA on CPAP Opiate addiction Depression COPD (chronic obstructive pulmonary disease) Surgical History H/O neck surgery Status post sleeve gastrectomy History of lumbar spinal fusion H/O colonoscopy Hx of cholecystectomy History of partial hysterectomy H/O tubal ligation History of lumbar fusion Family History Family History Father Aneurysm Other No family history of cancer Social History Social History Household Members: Children Household Members Other:: daughter Housing: House Are you a primary lawn care worker to a significant other at home: No Do you presently have visiting nurse or other home services: No Alcohol intake: never Comment: NOT INDICATED Patient Tobacco Use Status: Current everyday Tobacco user Tobacco use type: Cigarette Cigarettes Per Day: 10 Smoked in Last 30 Days: Yes e-Cigarette/Vaping Use: Currently Using Second Hand Smoke Exposure: Yes Advance Directives: No Advance Directives Information Provided: No Do you have a plan to hurt others: No Plan service: No Current occupational status: unemployed Cognitive needs: Yes (walker) Hearing needs: No Vision needs: Yes (glasses) Physical Exam ED Vital Signs: Vital Signs - 24 hr 12/19/23 22:34 12/20/23 04:56 12/20/23 06:10 Temperature 98.5 F 97.7 F 98.0 F Pulse Rate 69 72 80 Respiratory Rate 16 18 20 Blood Pressure 94/61 168/86 H 156/79 H Pulse Oximetry 95 94 85 L Oxygen Delivery Method Room Air Room Air Room Air Oxygen Flow Rate 12/20/23 06:18 Temperature Pulse Rate Respiratory Rate Blood Pressure Pulse Oximetry 92 Oxygen Delivery Method Nasal Cannula Oxygen Flow Rate 3.5 BMI result Body Mass Index 30.9 Const Other: Appearance: very somnolent, wakes up to sternal rub, very slow to answer Eyes: Pupils equal, round and reactive to light. ENT: Pharynx normal. Neck: Normal inspection. Neck supple. No lymph nodes noted. No crepitus CVS: Normal heart rate and rhythm. Pulses normal. Normal S1 and S2 Respiratory: No respiratory distress. Breath sounds normal. No Wheezing. No rales Abdomen: Soft and nontender. No rigidity. No distention. Skin: Skin warm and dry. Normal skin color. Normal skin turgor. Extremities: No lower extremity edema. No Lacerations. No Rash. Patient able to flex and extend the legs hips knees ankles. Patient does not have any swelling, no pain to palpation over the posterior aspect of the legs Neuro: cranial nerves 2-12 grossly intact. Difficult to assess due to patient's somnolence Psych: calm, very somnolent Course Course Course Narrative: when patient came in, a urinalysis was taken, seems to be slightly positive. Given patient's symptoms we will go ahead and treat. patient receiving IV fluids and ceftriaxone which will cover for both UTI and patient has pneumonia. At home patient is taking azithromycin which she already took today - it is likely that patient is somnolent from taking trazodone. However patient is way too sleepy. - Patient to somnolent to make any decisions. I discussed with the patient's daughter that we will go ahead and do a full workup. Medications Administered Discontinued Medications Generic Name Dose Route Start Last Admin Trade Name Freq PRN Reason Stop Dose Admin Sodium Chloride 1,000 mls @ 999 mls/hr 12/20/23 01:55 12/20/23 04:28 Ns IVCONT 12/20/23 02:55 Infused .Q1H1M ONE Infusion Ceftriaxone Sodium 1 gm/ 50 mls @ 100 mls/hr 12/20/23 02:03 12/20/23 04:28 Sodium Chloride IV 12/20/23 02:32 Infused ONCE ONE Infusion Iohexol 85 ml 12/20/23 04:15 12/20/23 04:16 Iohexol 350 Mg/Ml 100 Ml Infus..Btl IV 12/20/23 04:16 85 ml ONCE ONE Administration Morphine Sulfate 4 mg 12/20/23 04:54 12/20/23 04:59 Morphine Sulfate 4 Mg/Ml Cartridge IVPUSH 12/20/23 04:55 4 mg ONCE ONE Administration Protocol Ondansetron HCl 4 mg 12/20/23 04:54 12/20/23 04:59 Ondansetron Hcl 4 Mg/2 Ml Vial IVPUSH 12/20/23 04:55 4 mg ONCE ONE Administration Medical Decision Making Medical Decision Making [facility] Narrative: - my interpretation of EKG: Normal sinus rhythm, heart rate 73, no ST segment depression or elevation, no T-wave inversion, QTC 451 - my interpretation hematology, normal white blood cell count, chemistry within normal limits, normal pCO2 levels, normal ammonia level, normal troponin, normal lipase - 04:55, patient more awake, alert, stating that she has abdominal pain, requesting pain medications. CT scans are still pending at this time - My interpretation of CT scan of the abdomen and pelvis: No obvious abnormality. - Patient's take tried getting the patient up for a walk. Patient now no longer has abdominal pain, now complaining of left leg pain. - X-ray and ultrasound of the left lower extremity pending. - Sign-out given to my colleague Dr. Donohue - Differential Diagnosis Differential Diagnoses: The differential diagnosis associated with the presentation includes ( anxiety, gastritis, gastroenteritis, left lower extremity DVT, contusion, musculoskeletal pain) Admission/Observation Consideration of admission/observation: Escalation of care including admission/observation considered ( given patient's multiple complaints, observation has been considered.) Lab Data MDM Lab Attestation statement: I reviewed the patient's lab results. 12/20/23 02:42 12/20/23 02:42 Labs: Lab Results 12/20/23 12/20/23 12/20/23 Range/Units 00:56 02:42 02:42 WBC 8.6 (4.8-10.8) X10*3/uL RBC 4.66 (4.20-5.50) X10*6/uL Hgb 13.9 (12.0-16.0) g/dl Hct 42.3 (37.0-47.0) % MCV 90.8 (80.0-98.0) fL MCH 29.8 (27.0-33.0) pg MCHC 32.9 (31.0-35.0) g/dl RDW 13.5 (11.0-16.0) % Plt Count 160 (160-400) X10*3/uL MPV 9.5 (9.4-12.3) fL Immature Gran % (Auto) 0.3 (0.0-0.4) % Neut % (Auto) 43.6 L (45-73) % Lymph % (Auto) 46.3 H (20-40) % [place] % (Auto) 7.9 (2-11) % Eos % (Auto) 1.2 (0-4) % Baso % (Auto) 0.7 (0-2) % Lymph # (Auto) 4.0 (1.2-4.9) X10*3/uL [place] # (Auto) 0.7 (0.1-1.2) X10*3/uL Eos # (Auto) 0.1 (0.0-0.4) X10*3/uL Baso # (Auto) 0.1 (0.0-0.2) X10*3/uL Abs Immat Gran (auto) 0.03 (0.00-0.03) X10*3/uL Absolute Neuts (auto) 3.7 (2.0-8.3) x10*3/uL Absolute Nucleated RBC 0.000 (0.0-0.012) X10*3/uL Nucleated RBC % (auto) 0.0 (0.0-0.2) /100WBC VBG pH (7.32-7.43) VBG pCO2 mmHg VBG pO2 mmHg VBG HCO3 (22-26) mmol/L VBG O2 Saturation % VBG Base Excess mmol/L Sodium 139 (135-145) mmol/L Potassium 4.2 (3.3-5.1) mmol/L Chloride 100 (96-108) mmol/L Carbon Dioxide 28 (22-29) mmol/L Anion Gap 15 (12-20) BUN 18 H (9-16) mg/dL Creatinine 0.69 (0.5-1.4) mg/dL Estim Creat Clear Calc 88.4 Estimated GFR > 60 Random Glucose 169 H (60-115) mg/dL Calcium 9.3 (8.4-10.2) mg/dL Magnesium 2.2 (1.6-2.6) mg/dL Total Bilirubin 0.2 (0.0-1.0) mg/dL Direct Bilirubin < 0.2 (0.0-0.5) mg/dL AST 20 (5-31) U/L ALT 15 (0-31) U/L Alkaline Phosphatase 69 (39-117) U/L Ammonia (13-55) umol/L Troponin I High Sens < 2.7 (<3.5-17.0) ng/L Total Protein 7.1 (6.5-8.0) g/dL Albumin 3.8 (3.5-5.0) g/dL Lipase 33 (8-78) U/L Urine Color Yellow Urine Appearance Clear Urine pH 5.5 (5.0-9.0) Ur Specific [place] 1.025 (1.005-1.025) Urine Protein Negative (Neg-Trace) mg/dL Urine Glucose (UA) Negative (Negative) mg/dL Urine Ketones Trace (Negative) mg/dL Urine Blood Negative (Negative) Urine Nitrite Negative (Negative) Ur Leukocyte Esterase Small (1+) H (Negative) Urine RBC 3-5 H (0-2) /HPF Urine WBC 11-20 H (0-5) /HPF Ur Squamous Epith Cells 3-5 (0-2) /HPF Calcium Oxalate Crystal Present Urine Bacteria None Seen (None Seen) Hyaline Casts 0-2 (0-2) /LPF Urine Opiates Screen Not Detected (Not Detect) Ur Buprenorphine Scrn Positive H (Not Detect) ng/mL Ur Oxycodone Screen Not Detected (Not Detect) ng/mL Urine Methadone Screen Not Detected (Not Detect) ng/mL Urine Fentanyl Screen Not Detected (Not Detect) Ur Barbiturates Screen Not Detected (Not Detect) Ur Phencyclidine Scrn Not Detected (Not Detect) Ur Amphetamines Screen POSITIVE H (Not Detect) U Benzodiazepines Scrn Not Detected (Not Detect) Urine Cocaine Screen Not Detected (Not Detect) U Marijuana (THC) Screen Not Detected (Not Detect) Ethyl Alcohol < 10 Cancelled mg/dL 12/20/23 12/20/23 Range/Units 02:52 03:14 WBC (4.8-10.8) X10*3/uL RBC (4.20-5.50) X10*6/uL Hgb (12.0-16.0) g/dl Hct (37.0-47.0) % MCV (80.0-98.0) fL MCH (27.0-33.0) pg MCHC (31.0-35.0) g/dl RDW (11.0-16.0) % Plt Count (160-400) X10*3/uL MPV (9.4-12.3) fL Immature Gran % (Auto) (0.0-0.4) % Neut % (Auto) (45-73) % Lymph % (Auto) (20-40) % [place] % (Auto) (2-11) % Eos % (Auto) (0-4) % Baso % (Auto) (0-2) % Lymph # (Auto) (1.2-4.9) X10*3/uL [place] # (Auto) (0.1-1.2) X10*3/uL Eos # (Auto) (0.0-0.4) X10*3/uL Baso # (Auto) (0.0-0.2) X10*3/uL Abs Immat Gran (auto) (0.00-0.03) X10*3/uL Absolute Neuts (auto) (2.0-8.3) x10*3/uL Absolute Nucleated RBC (0.0-0.012) X10*3/uL Nucleated RBC % (auto) (0.0-0.2) /100WBC VBG pH 7.46 H (7.32-7.43) VBG pCO2 43 mmHg VBG pO2 75 mmHg VBG HCO3 31 H (22-26) mmol/L VBG O2 Saturation 97.0 % VBG Base Excess 6.5 mmol/L Sodium (135-145) mmol/L Potassium (3.3-5.1) mmol/L Chloride (96-108) mmol/L Carbon Dioxide (22-29) mmol/L Anion Gap (12-20) BUN (9-16) mg/dL Creatinine (0.5-1.4) mg/dL Estim Creat Clear Calc Estimated GFR Random Glucose (60-115) mg/dL Calcium (8.4-10.2) mg/dL Magnesium (1.6-2.6) mg/dL Total Bilirubin (0.0-1.0) mg/dL Direct Bilirubin (0.0-0.5) mg/dL AST (5-31) U/L ALT (0-31) U/L Alkaline Phosphatase (39-117) U/L Ammonia 46 (13-55) umol/L Troponin I High Sens (<3.5-17.0) ng/L Total Protein (6.5-8.0) g/dL Albumin (3.5-5.0) g/dL Lipase (8-78) U/L Urine Color Urine Appearance Urine pH (5.0-9.0) Ur Specific [place] (1.005-1.025) Urine Protein (Neg-Trace) mg/dL Urine Glucose (UA) (Negative) mg/dL Urine Ketones (Negative) mg/dL Urine Blood (Negative) Urine Nitrite (Negative) Ur Leukocyte Esterase (Negative) Urine RBC (0-2) /HPF Urine WBC (0-5) /HPF Ur Squamous Epith Cells (0-2) /HPF Calcium Oxalate Crystal Urine Bacteria (None Seen) Hyaline Casts (0-2) /LPF Urine Opiates Screen (Not Detect) Ur Buprenorphine Scrn (Not Detect) ng/mL Ur Oxycodone Screen (Not Detect) ng/mL Urine Methadone Screen (Not Detect) ng/mL Urine Fentanyl Screen (Not Detect) Ur Barbiturates Screen (Not Detect) Ur Phencyclidine Scrn (Not Detect) Ur Amphetamines Screen (Not Detect) U Benzodiazepines Scrn (Not Detect) Urine Cocaine Screen (Not Detect) U Marijuana (THC) Screen (Not Detect) Ethyl Alcohol mg/dL Independent Interpretation I performed an independent interpretation of an: CT Scan Radiology Impression Discussion of test interpretation with radiology: I have reviewed the radiologist's reading. Radiologist Impression: FINDINGS: LUNG BASES: The visualized lung bases are unremarkable. LIVER, GALLBLADDER, AND BILIARY TREE: The liver is enlarged, unchanged. Normal contour and attenuation.. No focal hepatic lesion or biliary ductal dilatation is present. Status post cholecystectomy. PANCREAS: Atrophic without ductal dilatation or inflammatory change. SPLEEN: Unremarkable. ADRENAL GLANDS: Unremarkable. KIDNEYS AND URETERS: The kidneys are normal in size, shape, and attenuation. No hydronephrosis, hydroureter, or calculi seen. No perinephric stranding. BLADDER: Unremarkable. GASTROINTESTINAL TRACT: Status post sleeve gastrectomy. Circumferential wall thickening of the distal ileum extending to the ileocecal junction with wall enhancement. The bowel loops are fluid-filled with adjacent stranding. No bowel wall pneumatosis. No significant cecal wall thickening or inflammatory change. No small or large bowel obstruction. Unremarkable appendix. Mild stool burden throughout the colon. PERITONEAL CAVITY: Trace fluid/stranding in the right lower quadrant adjacent to the inflamed small bowel loops. No intra-abdominal free air. No abscess formation. ABDOMINAL WALL: No significant hernia is appreciated. LYMPH NODES: No significant lymphadenopathy. VASCULAR: Unremarkable. PELVIC VISCERA: Status post hysterectomy. OSSEOUS STRUCTURES: No acute osseous abnormality. Postsurgical change and degenerative disc disease within the lumbar spine is redemonstrated. Pain pump within the left posterior soft tissues. CT/CT abdomen pelvis w IV con IMPRESSION: 1. Circumferential wall thickening and enhancement of the distal ileum extending to the ileocecal junction. The bowel loops are fluid-filled with adjacent stranding and trace fluid. No bowel wall pneumatosis. No significant cecal wall thickening or inflammatory change. Findings can be seen in the setting of an infectious or inflammatory enteritis. 2. No small or large bowel obstruction. Unremarkable appendix. Mild stool burden throughout the colon. 3. No intra-abdominal mass, lymphadenopathy, or ascites. Fleischner guidelines were followed. Critical Care Time Critical Care Time Critical Care Time: Yes Total Critical Care Time: 60 Attestation: I have personally provided critical care time. Time includes review of lab data, radiology results, discussion with consultants, and monitoring for potential decompensation. Intervention performed as documented. Discharge Plan Discharge Clinical Impression: Abdominal pain, Leg pain, left Patient Disposition: Still a Patient Prescriptions: No Action diclofenac sodium 1 % gel 2 g topical QID PRN (Reason: pain and stiffness in fingers) Qty: 100 0RF albuterol sulfate [Ventolin HFA] 90 mcg/actuation HFA aerosol inhaler 2 puff PO QID PRN (Reason: wheezing) Qty: 8.5 3RF Dulera 200-5 mcg/actuation HFA aerosol inhaler 2 puff inhalation Q12H Qty: 8.8 0RF clotrimazole 1 % cream 1 appl topical BID Qty: 90 3RF Linzess 290 mcg capsule 290 mcg PO QAM Qty: 30 4RF pantoprazole 40 mg tablet,delayed release (DR/EC) 40 mg PO DAILY Qty: 90 3RF Rx Instructions: take one tablet half an hour before breakfast dextroamphetamine-amphetamine 30 mg tablet 30 mg PO BID@0900,1300 risperidone [Risperdal] 2 mg tablet 2 mg PO BEDTIME buprenorphine-naloxone 8-2 mg film 1 strip sublingual BID trazodone 100 mg tablet 3 tab PO BEDTIME acetaminophen [Tylenol Arthritis Pain] 650 mg tablet extended release 650 mg PO Q8H PRN (Reason: pain) Qty: 30 0RF albuterol sulfate 2.5 mg /3 mL (0.083 %) solution for nebulization 2.5 mg inhalation Q6H PRN (Reason: shortness of breath or wheezing) Qty: 90 1RF budesonide-formoterol [Symbicort] 160-4.5 mcg/actuation HFA aerosol inhaler 2 puff inhalation Q12H Qty: 10.2 3RF dextroamphetamine-amphetamine 10 mg tablet 1 tab PO DAILY doxepin 50 mg capsule 50 mg PO BEDTIME Veozah 45 mg tablet 45 mg PO DAILY Qty: 30 2RF rosuvastatin 5 mg tablet 5 mg PO DAILY Qty: 30 5RF azithromycin 250 mg tablet See Rx Instructions PO .COMPLEX Qty: 6 0RF Rx Instructions: For 250 mg dose pack: take 500 mg today (day 1), then 250 mg for 4 days (days 2-5) PO sertraline 100 mg tablet 100 mg PO QAM risperidone 3 mg tablet 3 mg PO BEDTIME divalproex 500 mg tablet extended release 24 hr 1,500 mg PO QPM gabapentin 800 mg tablet 800 mg PO TID 30 Days Qty: 90 6RF Print Language: [place]
[2023-12-20 02:15] LABS: Amphetamine Screen Urine POSITIVE (Not Detect); Barbiturates, Urine Not Detected (Not Detect); Benzodiazepines Screen Urine Not Detected (Not Detect); Buprenorphine Scr Positive (Not Detect); Cannabinoid Screen Urine Not Detected (Not Detect); Cocaine Screen Urine Not Detected (Not Detect); Fentanyl, urine Not Detected (Not Detect); Methadone Screen, Urine Not Detected (Not Detect); Opiate Screen Urine Not Detected (Not Detect); Oxycodone Screen Urine Not Detected (Not Detect); Phencyclidine Screen Urine Not Detected (Not Detect)
[2023-12-20] MEDS: 0.9 % Sodium Chloride 1,000 ML 999 ML IVCONT ×3 (02:45→10:31)
[2023-12-20 02:50] LABS: MANUAL DIFF FLAG NO
[2023-12-20] MEDS: cefTRIAXone sodium 1 GM in 0.9 % Sodium Chloride 50 ML IV (02:50)
[2023-12-20 02:51] LABS: Basophils Absolute Auto 0.1 X10*3/uL (0.0-0.2); Basophils Percent Auto 0.7 % (0-2); Eosinophils Absolute Auto 0.1 X10*3/uL (0.0-0.4); Eosinophils Percent Auto 1.2 % (0-4); Hematocrit 42.3 % (37.0-47.0); Hemoglobin 13.9 g/dl (12.0-16.0); Imm Gran Abs Auto 0.03 X10*3/uL (0.00-0.03); Imm Gran Pct Auto 0.3 % (0.0-0.4); Lymphocytes Percent Auto 46.3 % (20-40); Mean Corpuscular HGB Conc 32.9 g/dl (31.0-35.0); Mean Corpuscular Hemoglobin 29.8 pg (27.0-33.0); Mean Corpuscular Volume 90.8 fL (80.0-98.0); Mean Platelet Volume 9.5 fL (9.4-12.3); Monocytes Absolute Auto 0.7 X10*3/uL (0.1-1.2); Monocytes Percent Auto 7.9 % (2-11); Neutrophils Absolute Auto 3.7 x10*3/uL (2.0-8.3); Neutrophils Percent Auto 43.6 % (45-73); Platelet Count 160 X10*3/uL (160-400); Red Blood Count 4.66 X10*6/uL (4.20-5.50); Red Cell Distribution Width 13.5 % (11.0-16.0); White Blood Count 8.6 X10*3/uL (4.8-10.8)
[2023-12-20 02:56] LABS: VBG Base Excess 6.5 mmol/L; VBG HCO3 31 mmol/L (22-26); VBG pCO2 43 mmHg; VBG pH 7.46 (7.32-7.43); VBG pO2 75 mmHg
[2023-12-20 03:16] LABS: Alanine Aminotransferase 15 U/L (0-31); Albumin Level 3.8 g/dL (3.5-5.0); Alkaline Phosphatase 69 U/L (39-117); Anion Gap 15 (12-20); Aspartate Amino Transferase 20 U/L (5-31); Bilirubin Direct < 0.2 mg/dL (0.0-0.5); Bilirubin Total 0.2 mg/dL (0.0-1.0); Blood Urea Nitrogen 18 mg/dL (9-16); Calcium 9.3 mg/dL (8.4-10.2); Carbon Dioxide 28 mmol/L (22-29); Chloride 100 mmol/L (96-108); Creatinine Clr Calc Pharmacy 88.4; Estimated Glomerular Filt Rate > 60; Ethanol < 10 mg/dL; Glucose Random 169 mg/dL (60-115); Lipase 33 U/L (8-78); Magnesium 2.2 mg/dL (1.6-2.6); Potassium 4.2 mmol/L (3.3-5.1); Sodium 139 mmol/L (135-145); Total Protein 7.1 g/dL (6.5-8.0); Troponin-I High Sensitivity < 2.7 ng/L (<3.5-17.0)
[2023-12-20 03:34] LABS: Ammonia 46 umol/L (13-55)
[2023-12-20 03:55] LABS: Venous Blood Gas Refer to POC result
[2023-12-20] MEDS: iohexoL 350 MG/ML 100 ML INFUS..BTL 85 ML IV (04:16)
[2023-12-20] MEDS: ondansetron HCL 4 MG/2 ML VIAL IVPUSH (04:59)
[2023-12-20] MEDS: Morphine Sulfate 4 MG/ML CARTRIDGE IVPUSH ×5 (04:59→18:29)
--- NOTE | 2023-12-20 05:03 | PC.NURSE ---
Pt c/o 10 pain in abdomen, MD aware and ordered IV morphine and zofran, administered as ordered.
--- NOTE | 2023-12-20 06:19 | PC.NURSE ---
Pt ambulated to bathroom, Vital signs taken and SPO2 85-87%. Pt encouraged to cough and take some deep breaths, spo2 up to 89%. Pt placed on 3.5 L nasal cannula to maintain spo2: 92%
--- NOTE | 2023-12-20 08:05 | P.CONGS_ITS ---
History of Present Illness Consult details Consult date: 12/20/23 Reason for consult: abdominal pain Requesting physician: Nate Donohue Narrative: Patient is a 63-year-old female with a past medical history significant for sleeve gastrectomy performed in 11/08/2021. She additionally has multiple chronic medical conditions, presented to her primary care physician's office 2 days ago with complaints of cough. Diagnosed with atypical pneumonia and prescribed azithromycin. She states that she took this medication yesterday and then developed lower abdominal pain in the periumbilical area. This worsened and she presented to the emergency room. She describes this pain as colicky in nature, associated nausea without vomiting. She additionally reports that she has not been following any bariatric diet recommendations over the last 2 months. She has not had any significant changes in her diet over the last week. She has not had any recent travel, change in bowel habits or bladder habits. As above, due to the abdominal pain she presented to the emergency room. In the emergency room, she had a workup including lab data and CT scan without IV contrast or oral contrast. CT scan was revealing for circumferential wall thickening of the distal ileum extending into the ileocecal junction. There was no pneumatosis although while stranding was evident. No evidence of small-bowel obstruction. There was mild stool burden. Lab data showed very minimal left shift without leukocytosis or electrolyte dyscrasias. Review of Systems 2 Review of Systems: Yes all other systems are reviewed and are negative [facility] Past Medical History Medical History Vasomotor symptoms due to menopause Impaired fasting glucose Smoker unmotivated to quit Cough present for greater than 3 weeks Hair thinning Prolapse of female pelvic organs Bilateral finger arthralgia Coccyx pain Diabetes mellitus with diabetic neuropathy, without long-term current use of insulin Pain or burning when swallowing Heartburn Hepatomegaly Osteoarthritis, hip, bilateral Bilateral hip pain Lumbar spondylosis Bilateral groin pain Depressive 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 History of pneumonia Vitamin B12 deficiency Vitamin D deficiency Insomnia ADHD Community acquired bilateral lower lobe pneumonia Injury of left heel Cough Cigarette smoker motivated to quit Dysuria Left shoulder pain Dyslipidemia Low back pain Lumbar degenerative disc disease Mixed incontinence urge and stress TEA on CPAP Opiate addiction Depression COPD (chronic obstructive pulmonary disease) Family History Family History Father Aneurysm Other No family history of cancer Surgical History Surgical History H/O neck surgery Status post sleeve gastrectomy History of lumbar spinal fusion H/O colonoscopy Hx of cholecystectomy History of partial hysterectomy H/O tubal ligation History of lumbar fusion Social History Social History Household Members: Children Household Members Other:: daughter Housing: House Are you a primary child care centre manager to a significant other at home: No Do you presently have visiting nurse or other home services: No Alcohol intake: never Comment: NOT INDICATED Patient Tobacco Use Status: Current everyday Tobacco user Tobacco use type: Cigarette Cigarettes Per Day: 10 Smoked in Last 30 Days: Yes e-Cigarette/Vaping Use: Currently Using Second Hand Smoke Exposure: Yes Advance Directives: No Advance Directives Information Provided: No Do you have a plan to hurt others: No Plan service: No Current occupational status: unemployed Cognitive needs: Yes (walker) Hearing needs: No Vision needs: Yes (glasses) Meds Allergies Allergy/AdvReac Type Severity Reaction Status Date / Time bupropion [From Wellbutrin] Allergy Intermediate Itching Verified 12/19/23 22:35 influenza virus vaccine, Allergy Unknown RASH Verified 12/19/23 22:35 specific [FLU VACCINE] latex Allergy Unknown Rash Verified 12/19/23 22:35 Sulfa (Sulfonamide Allergy Unknown UNKNOWN, Verified 12/19/23 22:35 Antibiotics) itch, itching baclofen Allergy twitching, Verified 12/19/23 22:35 falling down Active Medications: Current Medications Sodium Chloride (Ns) 1,000 mls @ 999 mls/hr IVCONT .Q1H1M RAO Stop: 12/20/23 08:45 Home Medications ?Medication ?Instructions ?Recorded ?Confirmed ?Last Taken ?Type buprenorphine 8 mg-naloxone 2 mg 1 strip sublingual BID 09/18/21 10/12/23 03/22/23 08:30 History sublingual film dextroamphetamine-amphetamine 30 30 mg PO BID@0900,1300 09/18/21 10/12/23 03/22/23 08:30 History mg tablet risperidone 2 mg tablet (Risperdal) 2 mg PO BEDTIME 09/18/21 10/12/23 Unknown History trazodone 100 mg tablet 3 tab PO BEDTIME 03/05/22 10/12/23 Unknown History sertraline 100 mg tablet 100 mg PO QAM 07/31/22 10/12/23 03/22/23 08:30 History divalproex 500 mg tablet,extended 1,500 mg PO QPM 08/13/22 10/12/23 Unknown History release 24 hr dextroamphetamine-amphetamine 10 1 tab PO DAILY 06/28/23 10/12/23 Unknown History mg tablet doxepin 50 mg capsule 50 mg PO BEDTIME 06/28/23 09/26/23 Unknown History risperidone 3 mg tablet 3 mg PO BEDTIME 11/08/23 Unknown History Physical Exam 2 Vital Signs: Vital Signs: Last Vital Signs Temp 98.0 F 12/20/23 06:10 Pulse 80 12/20/23 06:10 Resp 16 12/20/23 07:38 BP 156/79 H 12/20/23 06:10 Pulse Ox 92 12/20/23 06:18 O2 Del Method Nasal Cannula 12/20/23 06:18 O2 Flow Rate 3.5 12/20/23 06:18 BMI result Body Mass Index 30.9 Const: General: cooperative, healthy appearing, comfortable and no acute distress GI: Inspection: Yes normal to inspection Palpation (GI): Tenderness to palpation present (GI) periumbilically, no guarding, not rigid and No Rebound tenderness present Results Labs 12/20/23 02:42 12/20/23 02:42 Labs: Abnormal lab results 12/20/23 12/20/23 12/20/23 Range/Units 00:56 02:42 02:52 Neut % (Auto) 43.6 L (45-73) % Lymph % (Auto) 46.3 H (20-40) % VBG pH 7.46 H (7.32-7.43) VBG HCO3 31 H (22-26) mmol/L BUN 18 H (9-16) mg/dL Random Glucose 169 H (60-115) mg/dL Ur Leukocyte Esterase Small (1+) H (Negative) Urine RBC 3-5 H (0-2) /HPF Urine WBC 11-20 H (0-5) /HPF Ur Buprenorphine Scrn Positive H (Not Detect) ng/mL Ur Amphetamines Screen POSITIVE H (Not Detect) Short CBC 12/20/23 Range/Units 02:42 WBC 8.6 (4.8-10.8) X10*3/uL Hgb 13.9 (12.0-16.0) g/dl Hct 42.3 (37.0-47.0) % Plt Count 160 (160-400) X10*3/uL BMP 12/20/23 02:42 Sodium 139 Potassium 4.2 Chloride 100 Carbon Dioxide 28 BUN 18 H Creatinine 0.69 Calcium 9.3 Liver Function 12/20/23 Range/Units 02:42 Total Bilirubin 0.2 (0.0-1.0) mg/dL Direct Bilirubin < 0.2 (0.0-0.5) mg/dL AST 20 (5-31) U/L ALT 15 (0-31) U/L Alkaline Phosphatase 69 (39-117) U/L Albumin 3.8 (3.5-5.0) g/dL Urine 12/20/23 Range/Units 00:56 Urine Color Yellow Urine Appearance Clear Urine pH 5.5 (5.0-9.0) Ur Specific [place] 1.025 (1.005-1.025) Urine Protein Negative (Neg-Trace) mg/dL Urine Glucose (UA) Negative (Negative) mg/dL All other labs normal. Assessment and Plan (1) Abdominal pain: Qualifiers: Abdominal location: periumbilical Qualified Code(s): R10.33 - Periumbilical pain Status: Acute 63-year-old female with a past medical history significant for sleeve gastrectomy performed in 11/08/2021. She presented to the emergency room with complaints of periumbilical pain. This seemingly started after taking antibiotics. CT scan concerning for possible distal ileitis. No evidence to suggest complication from bariatric surgery. She has been seen in our office in September and reportedly is not following any bariatric surgical recommendations from our office. I do not suspect that her abdominal pain is related to her noncompliance with her bariatric meal plan, but rather potentially related to an ileitis from possible infectious etiology or reaction to antibiotics. She certainly may follow-up in our office once discharged as previously scheduled. Thank you very much for allowing us to participate in the care of your patient. Total time managing care of this patient today: 25 minutes. Procedures Date of Service Date of Service: 12/20/23
[2023-12-20 08:53] LABS: MANUAL DIFF FLAG NO
[2023-12-20] MEDS: Pantoprazole Sodium 40 MG/10 ML VIAL IVPUSH (08:53)
[2023-12-20 08:55] LABS: Basophils Percent Auto 0.4 % (0-2); Eosinophils Absolute Auto 0.1 X10*3/uL (0.0-0.4); Hematocrit 46.6 % (37.0-47.0); Hemoglobin 15.5 g/dl (12.0-16.0); Imm Gran Abs Auto 0.02 X10*3/uL (0.00-0.03); Imm Gran Pct Auto 0.2 % (0.0-0.4); Lymphocytes Absolute Auto 2.6 X10*3/uL (1.2-4.9); Mean Corpuscular HGB Conc 33.3 g/dl (31.0-35.0); Mean Corpuscular Hemoglobin 29.8 pg (27.0-33.0); Mean Corpuscular Volume 89.6 fL (80.0-98.0); Mean Platelet Volume 9.3 fL (9.4-12.3); Monocytes Absolute Auto 0.7 X10*3/uL (0.1-1.2); Neutrophils Absolute Auto 5.7 x10*3/uL (2.0-8.3); Neutrophils Percent Auto 62.4 % (45-73); Platelet Count 163 X10*3/uL (160-400); Red Cell Distribution Width 13.4 % (11.0-16.0); White Blood Count 9.2 X10*3/uL (4.8-10.8)
--- NOTE | 2023-12-20 09:06 | PM.CNGS ---
History of Present Illness Consult details Consult date: 12/20/23 Narrative: [age] year old female with chronic pain issues for the back, the hips and joints, COPD, GERD, here in the ER because of abdominal pain. She describes this mostly on the mid abdominal area. This started yesterday morning. This had persisted throughout the night so she came to the emergency room early this morning. On presentation in the ER, she also had complained of left hip pain and left leg pain. She did not have any nausea or vomiting. She also had some urinary complaints. Review of Systems Constitutional: Constitutional: Denies chills and Denies fever(s) Cardiovascular: Cardiovascular: Denies chest pain, Denies dyspnea and Denies dyspnea on exertion Respiratory: Respiratory: Denies cough, Denies dyspnea and Denies dyspnea on exertion Gastrointestinal: Gastrointestinal: Denies hematochezia and Denies change in bowel habits Genitourinary: Genitourinary: Denies hematuria Musculoskeletal: Musculoskeletal: Denies back pain and Denies limited range of motion Neurologic: Denies focal weakness and Denies convulsions Psychiatric: Psychiatric: Denies depression and Denies mood swings [facility] Past Medical History Medical History Ileitis Vasomotor symptoms due to menopause Impaired fasting glucose Smoker unmotivated to quit Cough present for greater than 3 weeks Hair thinning Prolapse of female pelvic organs Bilateral finger arthralgia Coccyx pain Diabetes mellitus with diabetic neuropathy, without long-term current use of insulin Pain or burning when swallowing Heartburn Hepatomegaly Osteoarthritis, hip, bilateral Bilateral hip pain Lumbar spondylosis Bilateral groin pain Depressive 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 History of pneumonia Vitamin B12 deficiency Vitamin D deficiency Insomnia ADHD Community acquired bilateral lower lobe pneumonia Injury of left heel Cough Cigarette smoker motivated to quit Dysuria Left shoulder pain Dyslipidemia Low back pain Lumbar degenerative disc disease Mixed incontinence urge and stress TEA on CPAP Opiate addiction Depression COPD (chronic obstructive pulmonary disease) Family History Family History Father Aneurysm Other No family history of cancer Surgical History Surgical History H/O neck surgery Status post sleeve gastrectomy History of lumbar spinal fusion H/O colonoscopy Hx of cholecystectomy History of partial hysterectomy H/O tubal ligation History of lumbar fusion Social History Social History Household Members: Family Household Members Other:: daughter Housing: House Are you a primary resident care manager rn to a significant other at home: No Do you presently have visiting nurse or other home services: No Alcohol intake: never Comment: NOT INDICATED Patient Tobacco Use Status: Current everyday Tobacco user Tobacco use type: Cigarette Cigarettes Per Day: 10 Smoked in Last 30 Days: Yes e-Cigarette/Vaping Use: Currently Using Second Hand Smoke Exposure: Yes Use of substances other than those prescribed or required for medical reasons: No Currently Displaying Signs/Symptoms of Drug Intoxication Withdrawal: No Advance Directives: No Advance Directives Information Provided: No Do you have a plan to hurt others: No Plan Recently lost weight without trying: No Nutrition Risks: No Nutritional Risk Patient : No : No Poor oral hygiene: No service: No Current occupational status: unemployed Cognitive needs: Yes (walker) Hearing needs: No Vision needs: Yes (glasses) Meds Allergies Allergy/AdvReac Type Severity Reaction Status Date / Time bupropion [From Wellbutrin] Allergy Intermediate Itching Verified 12/19/23 22:35 influenza virus vaccine, Allergy Unknown RASH Verified 12/19/23 22:35 specific [FLU VACCINE] latex Allergy Unknown Rash Verified 12/19/23 22:35 Sulfa (Sulfonamide Allergy Unknown UNKNOWN, Verified 12/19/23 22:35 Antibiotics) itch, itching baclofen Allergy twitching, Verified 12/19/23 22:35 falling down Home Medications ?Medication ?Instructions ?Recorded ?Confirmed ?Last Taken ?Type buprenorphine 8 mg-naloxone 2 mg 1 strip sublingual DAILY 09/18/21 12/21/23 03/22/23 08:30 History sublingual film dextroamphetamine-amphetamine 30 30 mg PO BID@0900,1500 09/18/21 12/20/23 03/22/23 08:30 History mg tablet sertraline 100 mg tablet 200 mg PO DAILY 07/31/22 12/20/23 03/22/23 08:30 History divalproex 500 mg tablet,extended 1,500 mg PO BEDTIME 08/13/22 12/20/23 Unknown History release 24 hr dextroamphetamine-amphetamine 10 1 tab PO DAILY@1200 06/28/23 12/20/23 Unknown History mg tablet doxepin 50 mg capsule 50 mg PO BEDTIME 06/28/23 12/20/23 Unknown History risperidone 3 mg tablet 3 mg PO BEDTIME 11/08/23 12/20/23 Unknown History linaclotide 290 mcg capsule 290 mcg PO DAILY 12/20/23 12/20/23 Unknown History (Linzess) nicotine (polacrilex) 4 mg gum 4 mg buccal BID 12/20/23 12/20/23 Unknown History nicotine 21 mg/24 hr daily 1 patch topical DAILY 12/20/23 12/20/23 Unknown History transdermal patch pantoprazole 40 mg tablet,delayed 40 mg PO DAILY@0630 12/20/23 12/20/23 Unknown History release trazodone 100 mg tablet 400 mg PO BEDTIME 12/20/23 12/20/23 Unknown History buprenorphine 8 mg-naloxone 2 mg 1 film buccal DAILY@1400 12/21/23 12/21/23 Unknown History sublingual film (Suboxone) Physical Exam Vital Signs: Vital Signs: Last Vital Signs Temp 97.7 F 12/20/23 08:52 Pulse 74 12/20/23 08:52 Resp 12 12/20/23 08:52 BP 148/76 H 12/20/23 08:52 Pulse Ox 92 12/20/23 08:52 O2 Del Method Room Air 12/20/23 08:52 O2 Flow Rate 3.5 12/20/23 06:18 BMI result Body Mass Index 30.9 Const: Other: Appears anxious asking for pain med Resp: Effort & Inspection: normal respiratory effort Cardio: Rate: regular rate GI: Other: Tender mostly on the mid more area mild guarding no rebound Palpation (GI): Soft to palpation Results Labs 12/24/23 04:42 12/24/23 04:42 Labs: Abnormal lab results 12/20/23 12/20/23 12/20/23 Range/Units 00:56 02:42 02:52 MPV (9.4-12.3) fL Neut % (Auto) 43.6 L (45-73) % Lymph % (Auto) 46.3 H (20-40) % VBG pH 7.46 H (7.32-7.43) VBG HCO3 31 H (22-26) mmol/L BUN 18 H (9-16) mg/dL Random Glucose 169 H (60-115) mg/dL Ur Leukocyte Esterase Small (1+) H (Negative) Urine RBC 3-5 H (0-2) /HPF Urine WBC 11-20 H (0-5) /HPF Ur Buprenorphine Scrn Positive H (Not Detect) ng/mL Ur Amphetamines Screen POSITIVE H (Not Detect) 12/20/23 Range/Units 08:49 MPV 9.3 L (9.4-12.3) fL Neut % (Auto) (45-73) % Lymph % (Auto) (20-40) % VBG pH (7.32-7.43) VBG HCO3 (22-26) mmol/L BUN (9-16) mg/dL Random Glucose (60-115) mg/dL Ur Leukocyte Esterase (Negative) Urine RBC (0-2) /HPF Urine WBC (0-5) /HPF Ur Buprenorphine Scrn (Not Detect) ng/mL Ur Amphetamines Screen (Not Detect) Short CBC 12/20/23 12/20/23 Range/Units 02:42 08:49 WBC 8.6 9.2 (4.8-10.8) X10*3/uL Hgb 13.9 15.5 (12.0-16.0) g/dl Hct 42.3 46.6 (37.0-47.0) % Plt Count 160 163 (160-400) X10*3/uL BMP 12/20/23 02:42 Sodium 139 Potassium 4.2 Chloride 100 Carbon Dioxide 28 BUN 18 H Creatinine 0.69 Calcium 9.3 Liver Function 12/20/23 Range/Units 02:42 Total Bilirubin 0.2 (0.0-1.0) mg/dL Direct Bilirubin < 0.2 (0.0-0.5) mg/dL AST 20 (5-31) U/L ALT 15 (0-31) U/L Alkaline Phosphatase 69 (39-117) U/L Albumin 3.8 (3.5-5.0) g/dL Urine 12/20/23 Range/Units 00:56 Urine Color Yellow Urine Appearance Clear Urine pH 5.5 (5.0-9.0) Ur Specific [place] 1.025 (1.005-1.025) Urine Protein Negative (Neg-Trace) mg/dL Urine Glucose (UA) Negative (Negative) mg/dL All other labs normal. Laboratory Results WBC 9.2 X10*3/uL (4.8-10.8) 12/20/23 08:49 RBC 5.20 X10*6/uL (4.20-5.50) 12/20/23 08:49 Hgb 15.5 g/dl (12.0-16.0) 12/20/23 08:49 Hct 46.6 % (37.0-47.0) 12/20/23 08:49 MCV 89.6 fL (80.0-98.0) 12/20/23 08:49 MCH 29.8 pg (27.0-33.0) 12/20/23 08:49 MCHC 33.3 g/dl (31.0-35.0) 12/20/23 08:49 RDW 13.4 % (11.0-16.0) 12/20/23 08:49 Plt Count 163 X10*3/uL (160-400) 12/20/23 08:49 MPV 9.3 fL (9.4-12.3) L 12/20/23 08:49 Immature Gran % (Auto) 0.2 % (0.0-0.4) 12/20/23 08:49 Neut % (Auto) 62.4 % (45-73) 12/20/23 08:49 Lymph % (Auto) 28.0 % (20-40) 12/20/23 08:49 [place] % (Auto) 8.0 % (2-11) 12/20/23 08:49 Eos % (Auto) 1.0 % (0-4) 12/20/23 08:49 Baso % (Auto) 0.4 % (0-2) 12/20/23 08:49 Lymph # (Auto) 2.6 X10*3/uL (1.2-4.9) 12/20/23 08:49 [place] # (Auto) 0.7 X10*3/uL (0.1-1.2) 12/20/23 08:49 Eos # (Auto) 0.1 X10*3/uL (0.0-0.4) 12/20/23 08:49 Baso # (Auto) 0.0 X10*3/uL (0.0-0.2) 12/20/23 08:49 Abs Immat Gran (auto) 0.02 X10*3/uL (0.00-0.03) 12/20/23 08:49 Absolute Neuts (auto) 5.7 x10*3/uL (2.0-8.3) 12/20/23 08:49 Absolute Nucleated RBC 0.000 X10*3/uL (0.0-0.012) 12/20/23 08:49 Nucleated RBC % (auto) 0.0 /100WBC (0.0-0.2) 12/20/23 08:49 VBG pH 7.46 (7.32-7.43) H 12/20/23 02:52 VBG pCO2 43 mmHg 12/20/23 02:52 VBG pO2 75 mmHg 12/20/23 02:52 VBG HCO3 31 mmol/L (22-26) H 12/20/23 02:52 VBG O2 Saturation 97.0 % 12/20/23 02:52 VBG Base Excess 6.5 mmol/L 12/20/23 02:52 Sodium 139 mmol/L (135-145) 12/20/23 02:42 Potassium 4.2 mmol/L (3.3-5.1) 12/20/23 02:42 Chloride 100 mmol/L (96-108) 12/20/23 02:42 Carbon Dioxide 28 mmol/L (22-29) 12/20/23 02:42 Anion Gap 15 (12-20) 12/20/23 02:42 BUN 18 mg/dL (9-16) H 12/20/23 02:42 Creatinine 0.69 mg/dL (0.5-1.4) 12/20/23 02:42 Estim Creat Clear Calc 88.4 12/20/23 02:42 Estimated GFR > 60 12/20/23 02:42 Random Glucose 169 mg/dL (60-115) H 12/20/23 02:42 Calcium 9.3 mg/dL (8.4-10.2) 12/20/23 02:42 Magnesium 2.2 mg/dL (1.6-2.6) 12/20/23 02:42 Total Bilirubin 0.2 mg/dL (0.0-1.0) 12/20/23 02:42 Direct Bilirubin < 0.2 mg/dL (0.0-0.5) 12/20/23 02:42 AST 20 U/L (5-31) 12/20/23 02:42 ALT 15 U/L (0-31) 12/20/23 02:42 Alkaline Phosphatase 69 U/L (39-117) 12/20/23 02:42 Ammonia 46 umol/L (13-55) 12/20/23 03:14 Troponin I High Sens < 2.7 ng/L (<3.5-17.0) 12/20/23 02:42 Total Protein 7.1 g/dL (6.5-8.0) 12/20/23 02:42 Albumin 3.8 g/dL (3.5-5.0) 12/20/23 02:42 Lipase 33 U/L (8-78) 12/20/23 02:42 Urine Color Yellow 12/20/23 00:56 Urine Appearance Clear 12/20/23 00:56 Urine pH 5.5 (5.0-9.0) 12/20/23 00:56 Ur Specific [place] 1.025 (1.005-1.025) 12/20/23 00:56 Urine Protein Negative mg/dL (Neg-Trace) 12/20/23 00:56 Urine Glucose (UA) Negative mg/dL (Negative) 12/20/23 00:56 Urine Ketones Trace mg/dL (Negative) 12/20/23 00:56 Urine Blood Negative (Negative) 12/20/23 00:56 Urine Nitrite Negative (Negative) 12/20/23 00:56 Ur Leukocyte Esterase Small (1+) (Negative) H 12/20/23 00:56 Urine RBC 3-5 /HPF (0-2) H 12/20/23 00:56 Urine WBC 11-20 /HPF (0-5) H 12/20/23 00:56 Ur Squamous Epith Cells 3-5 /HPF (0-2) 12/20/23 00:56 Calcium Oxalate Crystal Present 12/20/23 00:56 Urine Bacteria None Seen (None Seen) 12/20/23 00:56 Hyaline Casts 0-2 /LPF (0-2) 12/20/23 00:56 Urine Opiates Screen Not Detected (Not Detect) 12/20/23 00:56 Ur Buprenorphine Scrn Positive ng/mL (Not Detect) H 12/20/23 00:56 Ur Oxycodone Screen Not Detected ng/mL (Not Detect) 12/20/23 00:56 Urine Methadone Screen Not Detected ng/mL (Not Detect) 12/20/23 00:56 Urine Fentanyl Screen Not Detected (Not Detect) 12/20/23 00:56 Ur Barbiturates Screen Not Detected (Not Detect) 12/20/23 00:56 Ur Phencyclidine Scrn Not Detected (Not Detect) 12/20/23 00:56 Ur Amphetamines Screen POSITIVE (Not Detect) H 12/20/23 00:56 U Benzodiazepines Scrn Not Detected (Not Detect) 12/20/23 00:56 Urine Cocaine Screen Not Detected (Not Detect) 12/20/23 00:56 U Marijuana (THC) Screen Not Detected (Not Detect) 12/20/23 00:56 Ethyl Alcohol < 10 mg/dL 12/20/23 02:42 Ethyl Alcohol Cancelled 12/20/23 02:[address] 12/20/23 02:10 IMPRESSION: No acute intracranial process seen. Electronically signed by: Ludin Real MD 12/20/2023 04:56 AM EDT Abdomen/Pelvis CT 12/20/23 02:33 IMPRESSION: 1. Circumferential wall thickening and enhancement of the distal ileum extending to the ileocecal junction. The bowel loops are fluid-filled with adjacent stranding and trace fluid. No bowel wall pneumatosis. No significant cecal wall thickening or inflammatory change. Findings can be seen in the setting of an infectious or inflammatory enteritis. 2. No small or large bowel obstruction. Unremarkable appendix. Mild stool burden throughout the colon. 3. No intra-abdominal mass, lymphadenopathy, or ascites. Fleischner guidelines were followed. Electronically signed by: Emir Marrero MD 12/20/2023 06:26 AM EDT Venous Duplex 12/20/23 07:24 IMPRESSION: No evidence of deep venous thrombosis involving the left lower extremity. Electronically signed by: Keagan Still MD 12/20/2023 07:59 AM EDT Imaging Abdomen CT scan report/results: report reviewed and image reviewed CT scan - pelvis: report reviewed and image reviewed Assessment and Plan (1) Ileitis: Status: Acute 63 year female with abdominal pain since yesterday. I have reviewed her CAT scan and this is suggestive of terminal ileitis. This thickening of the distal ileum along with some surrounding inflammatory changes. I would recommend pain management, bowel rest and IV fluids. I also have recommended gastroenterology consult. I explained the plan to the patient. She does understand that if there is worsening of her clinical picture, surgical intervention may be necessary although this is unlikely. The patient is also being followed by the bariatric service because of her bariatric procedure last year. I recommend having them check on the patient as well. Initial lactate was 2.5 but this improved to 1.5 after hydration with IV fluids. Procedures Date of Service Date of Service: 12/24/23
[2023-12-20 09:23] LABS: Lactic Acid 2.5 mmol/L (0.5-2.0)
[2023-12-20 10:52] LABS: Reflex Lactate? Lactic Acid Added
--- NOTE | 2023-12-20 11:08 | PC.NURSE ---
Pt c/o 11/29 pain to abd and left hip, this RN made MD Donohue aware. Pt medicated per JUN with 4mg morphine per MD Donohue. Per MD, pt will get 3rd L of NS and then start continuous NS at 200mls/hr.
--- NOTE | 2023-12-20 11:18 | P.HPHOSP_ITS ---
History of Present Illness Date of Service: 12/20/23 Attending physician on admission: Leon Parks Chief Complaint: Abdominal pain Pt is a 63-year-old female with a PMH significant for?COPD, HLD, chronic pain syndrome secondary to arthritis and 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 Pt reports earlier in the week presented to an urgent care with cough that has been ongoing for 1.5 months occasionally productive of whitish sputum, worsening past week. Was diagnosed with pneumonia and started on azithromycin. The next day patient developed periumbilical sharp, stabbing, nonradiating abdominal pain. Denies nausea, vomiting, diarrhea. Pt also complains of diffuse left leg pain radiating to back over same time period. No known trauma to the area. Also endorses polyuria, no dysuria. Family is at bedside and sister notes patient has been ?doubled over? due to pain and needing wheelchair for ambulation rather than her walker. No chest pain/pressure, palpitations. Denies fever, chills. In the ED pt was hypertensive up to 168/86 and desatting as low as 85% on RA. Labs were significant for lactic acid 2.5, otherwise grossly unremarkable. No leukocytosis. Stable H&H. No significant electrolyte abnormalities. Renal and hepatic function WNL. Ammonia WNL. Troponin negative. UTI showing leukocyte esterase with wbc's 11-20 and 3-5 squamous cells. CXR showed no acute abnormality. CT?of head showed no acute intracranial process. CT of abdomen and pelvis showed findings suggestive of infectious or inflammatory enteritis. X- ray of pelvis negative. Left femur x-ray negative. Ultrasound venous duplex of left lower extremity negative for DVT. EKG showed normal sinus rhythm without evidence of significant ST elevations or depressions. Pt was treated with 3L IVF, morphine, Protonix, ondansetron, and ceftriaxone. Pt will be admitted to the hospital for treatment and further evaluation intractable abdominal pain in the setting of enteritis. Review of Systems 2 Review of Systems: Periumbilical abd pain Cough x1.5 months Worsening chronic SOB Left leg pain radiating to back Polyuria, no dysuria Denies fever, chills, nausea, vomiting, diarrhea No chest pain pressure PMFSH Medical History Ileitis Vasomotor symptoms due to menopause Impaired fasting glucose Smoker unmotivated to quit Cough present for greater than 3 weeks Hair thinning Prolapse of female pelvic organs Bilateral finger arthralgia Coccyx pain Diabetes mellitus with diabetic neuropathy, without long-term current use of insulin Pain or burning when swallowing Heartburn Hepatomegaly Osteoarthritis, hip, bilateral Bilateral hip pain Lumbar spondylosis Bilateral groin pain Depressive 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 History of pneumonia Vitamin B12 deficiency Vitamin D deficiency Insomnia ADHD Community acquired bilateral lower lobe pneumonia Injury of left heel Cough Cigarette smoker motivated to quit Dysuria Left shoulder pain Dyslipidemia Low back pain Lumbar degenerative disc disease Mixed incontinence urge and stress TEA on CPAP Opiate addiction Depression COPD (chronic obstructive pulmonary disease) Family History Father Aneurysm Other No family history of cancer Surgical History H/O neck surgery Status post sleeve gastrectomy History of lumbar spinal fusion H/O colonoscopy Hx of cholecystectomy History of partial hysterectomy H/O tubal ligation History of lumbar fusion Social History Household Members: Children Household Members Other:: daughter Housing: House Are you a primary director of health care marketing to a significant other at home: No Do you presently have visiting nurse or other home services: No Alcohol intake: never Comment: NOT INDICATED Patient Tobacco Use Status: Current everyday Tobacco user Tobacco use type: Cigarette Cigarettes Per Day: 10 Smoked in Last 30 Days: Yes e-Cigarette/Vaping Use: Currently Using Second Hand Smoke Exposure: Yes Advance Directives: No Advance Directives Information Provided: No Do you have a plan to hurt others: No Plan service: No Current occupational status: unemployed Cognitive needs: Yes (walker) Hearing needs: No Vision needs: Yes (glasses) Meds Allergies Allergy/AdvReac Type Severity Reaction Status Date / Time bupropion [From Wellbutrin] Allergy Intermediate Itching Verified 12/19/23 22:35 influenza virus vaccine, Allergy Unknown RASH Verified 12/19/23 22:35 specific [FLU VACCINE] latex Allergy Unknown Rash Verified 12/19/23 22:35 Sulfa (Sulfonamide Allergy Unknown UNKNOWN, Verified 12/19/23 22:35 Antibiotics) itch, itching baclofen Allergy twitching, Verified 12/19/23 22:35 falling down Active Medications: Current Medications Sodium Chloride (Ns) 1,000 mls @ 200 mls/hr IVCONT .Q5H RAO Home Medications ?Medication ?Instructions ?Recorded ?Confirmed ?Last Taken ?Type buprenorphine 8 mg-naloxone 2 mg 1 strip sublingual BID 09/18/21 10/12/23 03/22/23 08:30 History sublingual film dextroamphetamine-amphetamine 30 30 mg PO BID@0900,1300 09/18/21 10/12/23 03/22/23 08:30 History mg tablet sertraline 100 mg tablet 100 mg PO QAM 07/31/22 10/12/23 03/22/23 08:30 History divalproex 500 mg tablet,extended 1,500 mg PO QPM 08/13/22 10/12/23 Unknown History release 24 hr dextroamphetamine-amphetamine 10 1 tab PO DAILY 06/28/23 10/12/23 Unknown History mg tablet doxepin 50 mg capsule 50 mg PO BEDTIME 06/28/23 09/26/23 Unknown History risperidone 3 mg tablet 3 mg PO BEDTIME 11/08/23 Unknown History linaclotide 290 mcg capsule 290 mcg PO DAILY 12/20/23 Unknown History (Linzess) nicotine (polacrilex) 4 mg gum 4 mg buccal BID 12/20/23 Unknown History nicotine 21 mg/24 hr daily 1 patch topical DAILY 12/20/23 Unknown History transdermal patch trazodone 100 mg tablet 400 mg PO BEDTIME 12/20/23 Unknown History Physical Exam 2 Vital Signs and Narrative: Vital Signs: Last Vital Signs Temp 97.7 F 12/20/23 08:52 Pulse 77 12/20/23 10:32 Resp 20 12/20/23 11:05 BP 141/69 H 12/20/23 10:32 Pulse Ox 96 12/20/23 10:32 O2 Del Method Room Air 12/20/23 10:32 O2 Flow Rate 3.5 12/20/23 06:18 BMI result Body Mass Index 30.9 General: AOx3, no acute distress Resp: CTA bilaterally CVS: S1, S2, RRR GI: Periumbilical abd tenderness. +BS, no distention Skin: Warm, dry Neuro: Cranial nerves II-XII grossly intact bilaterally. Motor grossly intact bilaterally Extremities: No edema Psych: Appropriate affect Results Labs 12/20/23 08:49 12/20/23 02:42 Labs: Laboratory Results - last 24 hr 12/20/23 12/20/23 12/20/23 00:56 02:42 02:42 MCV 90.8 MCH 29.8 MCHC 32.9 RDW 13.5 Plt Count 160 MPV 9.5 Immature Gran % (Auto) 0.3 Neut % (Auto) 43.6 L Lymph % (Auto) 46.3 H [place] % (Auto) 7.9 Eos % (Auto) 1.2 Baso % (Auto) 0.7 Lymph # (Auto) 4.0 [place] # (Auto) 0.7 Eos # (Auto) 0.1 Baso # (Auto) 0.1 Abs Immat Gran (auto) 0.03 Absolute Neuts (auto) 3.7 Absolute Nucleated RBC 0.000 Nucleated RBC % (auto) 0.0 VBG pH VBG pCO2 VBG pO2 VBG HCO3 VBG O2 Saturation VBG Base Excess Anion Gap 15 Estim Creat Clear Calc 88.4 Estimated GFR > 60 Random Glucose 169 H Lactic Acid Calcium 9.3 Magnesium 2.2 Total Bilirubin 0.2 Direct Bilirubin < 0.2 AST 20 ALT 15 Alkaline Phosphatase 69 Ammonia Troponin I High Sens < 2.7 Total Protein 7.1 Albumin 3.8 Lipase 33 Urine Color Yellow Urine Appearance Clear Urine pH 5.5 Ur Specific [place] 1.025 Urine Protein Negative Urine Glucose (UA) Negative Urine Ketones Trace Urine Blood Negative Urine Nitrite Negative Ur Leukocyte Esterase Small (1+) H Urine RBC 3-5 H Urine WBC 11-20 H Ur Squamous Epith Cells 3-5 Calcium Oxalate Crystal Present Urine Bacteria None Seen Hyaline Casts 0-2 Urine Opiates Screen Not Detected Ur Buprenorphine Scrn Positive H Ur Oxycodone Screen Not Detected Urine Methadone Screen Not Detected Urine Fentanyl Screen Not Detected Ur Barbiturates Screen Not Detected Ur Phencyclidine Scrn Not Detected Ur Amphetamines Screen POSITIVE H U Benzodiazepines Scrn Not Detected Urine Cocaine Screen Not Detected U Marijuana (THC) Screen Not Detected Ethyl Alcohol < 10 Cancelled 12/20/23 12/20/23 12/20/23 02:52 03:14 08:49 MCV 89.6 MCH 29.8 MCHC 33.3 RDW 13.4 Plt Count 163 MPV 9.3 L Immature Gran % (Auto) 0.2 Neut % (Auto) 62.4 Lymph % (Auto) 28.0 [place] % (Auto) 8.0 Eos % (Auto) 1.0 Baso % (Auto) 0.4 Lymph # (Auto) 2.6 [place] # (Auto) 0.7 Eos # (Auto) 0.1 Baso # (Auto) 0.0 Abs Immat Gran (auto) 0.02 Absolute Neuts (auto) 5.7 Absolute Nucleated RBC 0.000 Nucleated RBC % (auto) 0.0 VBG pH 7.46 H VBG pCO2 43 VBG pO2 75 VBG HCO3 31 H VBG O2 Saturation 97.0 VBG Base Excess 6.5 Anion Gap Estim Creat Clear Calc Estimated GFR Random Glucose Lactic Acid 2.5 H* Calcium Magnesium Total Bilirubin Direct Bilirubin AST ALT Alkaline Phosphatase Ammonia 46 Troponin I High Sens Total Protein Albumin Lipase Urine Color Urine Appearance Urine pH Ur Specific [place] Urine Protein Urine Glucose (UA) Urine Ketones Urine Blood Urine Nitrite Ur Leukocyte Esterase Urine RBC Urine WBC Ur Squamous Epith Cells Calcium Oxalate Crystal Urine Bacteria Hyaline Casts Urine Opiates Screen Ur Buprenorphine Scrn Ur Oxycodone Screen Urine Methadone Screen Urine Fentanyl Screen Ur Barbiturates Screen Ur Phencyclidine Scrn Ur Amphetamines Screen U Benzodiazepines Scrn Urine Cocaine Screen U Marijuana (THC) Screen Ethyl Alcohol Imaging Radiologist's Impressions: Impressions Head CT 12/20/23 02:10 IMPRESSION: No acute intracranial process seen. Electronically signed by: Ludin Real MD 12/20/2023 04:56 AM EDT Abdomen/Pelvis CT 12/20/23 02:33 IMPRESSION: 1. Circumferential wall thickening and enhancement of the distal ileum extending to the ileocecal junction. The bowel loops are fluid-filled with adjacent stranding and trace fluid. No bowel wall pneumatosis. No significant cecal wall thickening or inflammatory change. Findings can be seen in the setting of an infectious or inflammatory enteritis. 2. No small or large bowel obstruction. Unremarkable appendix. Mild stool burden throughout the colon. 3. No intra-abdominal mass, lymphadenopathy, or ascites. Fleischner guidelines were followed. Electronically signed by: Emir Marrero MD 12/20/2023 06:26 AM EDT RP Femur X-Ray 12/20/23 06:34 IMPRESSION: No acute abnormality. Electronically signed by: Yinka Cartagena MD 12/20/2023 09:09 AM EDT RP Pelvis X-Ray 12/20/23 06:34 IMPRESSION: No acute abnormality. Electronically signed by: Yinka Cartagena MD 12/20/2023 09:09 AM EDT RP Chest X-Ray 12/20/23 06:59 IMPRESSION: No acute abnormality. Electronically signed by: Yinka Cartagena MD 12/20/2023 09:09 AM EDT RP Venous Duplex 12/20/23 07:24 IMPRESSION: No evidence of deep venous thrombosis involving the left lower extremity. Electronically signed by: Keagan Still MD 12/20/2023 07:59 AM EDT RP Assessment and Plan (1) Abdominal pain: Qualifiers: Abdominal location: periumbilical Qualified Code(s): R10.33 - Periumbilical pain Status: Acute (2) Ileitis: Status: Acute Plan Pt is a 63-year-old female with a PMH significant for?COPD, HLD, chronic pain syndrome secondary to arthritis and 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 Enteritis Patient with sudden onset periumbilical abdominal pain x2-3 days No nausea, vomiting, diarrhea CT showing enteritis of distal ileum to ileocecal junction, likely infectious or inflammatory Patient does not meet sepsis criteria: No fever, tachycardia, tachypnea, or leukocytosis Pt received IVF in the ED Will cover with ceftriaxone and Flagyl, started 12/20/2023 Bowel rest and IVF for now, advance diet as tolerated Analgesics for pain management Was seen by general surgery in ED, no surgical intervention necessary at this time Was seen by bariatric surgery in ED, no gastric sleeve complication GI consult UTI Pt with polyuria, UA +leuks, WBCs 11-20 No sepsis: No fever, tachycardia, tachypnea, or leukocytosis Covering with ceftriaxone Follow urine cultures Lactic acidosis, resolved Initial lactic acid 2.5 with repeat 1.5 after IVF Secondary to albuterol use, not sepsis Question of pneumonia Cough x1.5 months, diagnosed with pneumonia at urgent care earlier in the week CXR today clear; no fever, leukocytosis, or productive cough No evidence of pneumonia will stop azithromycin Left leg pain Unclear etiology: X-rays negative, no known trauma Analgesics as above COPD Not in acute exacerbation Continue home inhalers GERD PPI Mood disorder Continue home mood stabalizers Full Code Attending:?Dr. Parks DVT Prophylaxis: Lovenox Pt will require a hospitalization of at least two nights for treatment of?intractable abdominal pain in the setting enteritis that will require IV antibiotics and IV pain medication. Quality Stroke Does the patient have a stroke diagnosis?: No VTE Prior VTE?: No VTE Risk Level:: Medical - moderate - high VTE Device Contraindication: Treatment Not Indicated VTE Drug Contraindication: N/A - Med Ordered
[2023-12-20] MEDS: 0.9 % Sodium Chloride 1,000 ML 200 ML IVCONT (12:07)
[2023-12-20 12:12] LABS: ~Lactic Acid-LAB USE ONLY 1.5 mmol/L (0.5-2.0)
--- NOTE | 2023-12-20 12:47 | P.CNGI_ITS ---
History of Present Illness Data of Consult Service Date: 12/20/23 Primary Care Provider: Melissa Topete MD HPI Reason for consult: enteritis 63-year-old female with a hx of?COPD, HLD, chronic pain syndrome secondary to arthritis and degenerative changes in lumbar spine s/p 5 back surgeries with lumbar fusion, intrathecal pump in place managed by pain clinic, s/p sleeve gastrectomy 10/24/2022, GERD, ADHD, and mood disorder who I am seeing for assessment for abdominal pain and enteritis. Patient had sudden onset mid abdominal pain, burning and severe 10/10 last few days, no relieving or exacerbating factors. She denies nausea, vomiting, and no diarrhea or constipation, no melena or rectal bleeding. Denies fever or chills. Denies eating any bad food, sick contacts or antibiotics last few months Imaging with entritis, labs with possible uti Review of Systems 2 Review of Systems: Constitutional : No Weight loss, No Fever, No Chills ENT/Mouth : No sore throat, No Rhinorrhea Eyes: No Swelling, No Redness Cardiovascular : No Chest Pain, No SOB, No Edema Respiratory : No Cough, No Sputum, No Wheezing Gastrointestinal : see HPI Genitourinary : NO Dysuria, No Urinary Frequency, No Hematuria, No Urgency Musculoskeletal : No joint pain, No Myalgias, No Joint Swelling Skin : No Skin Lesions, No rash Neuro : No Weakness, No Numbness, No Dizziness, No Headache Psych : No Anxiety/Panic, No Depression Heme/Lymph: No Bruising, No Lymphadenopathy Endocrine : No Polyuria, No Polydipsia All other systems reviewed and are negative. [facility] Past Medical History Medical History Ileitis Vasomotor symptoms due to menopause Impaired fasting glucose Smoker unmotivated to quit Cough present for greater than 3 weeks Hair thinning Prolapse of female pelvic organs Bilateral finger arthralgia Coccyx pain Diabetes mellitus with diabetic neuropathy, without long-term current use of insulin Pain or burning when swallowing Heartburn Hepatomegaly Osteoarthritis, hip, bilateral Bilateral hip pain Lumbar spondylosis Bilateral groin pain Depressive 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 History of pneumonia Vitamin B12 deficiency Vitamin D deficiency Insomnia ADHD Community acquired bilateral lower lobe pneumonia Injury of left heel Cough Cigarette smoker motivated to quit Dysuria Left shoulder pain Dyslipidemia Low back pain Lumbar degenerative disc disease Mixed incontinence urge and stress TEA on CPAP Opiate addiction Depression COPD (chronic obstructive pulmonary disease) Family History Family History Father Aneurysm Other No family history of cancer Surgical History Surgical History H/O neck surgery Status post sleeve gastrectomy History of lumbar spinal fusion H/O colonoscopy Hx of cholecystectomy History of partial hysterectomy H/O tubal ligation History of lumbar fusion Social History Social History Household Members: Family Household Members Other:: daughter Housing: House Are you a primary primary care sales representative to a significant other at home: No Do you presently have visiting nurse or other home services: No Alcohol intake: never Comment: NOT INDICATED Patient Tobacco Use Status: Current everyday Tobacco user Tobacco use type: Cigarette Cigarettes Per Day: 10 Smoked in Last 30 Days: Yes e-Cigarette/Vaping Use: Currently Using Second Hand Smoke Exposure: Yes Use of substances other than those prescribed or required for medical reasons: No Advance Directives: No Advance Directives Information Provided: No Do you have a plan to hurt others: No Plan Recently lost weight without trying: No Nutrition Risks: No Nutritional Risk Patient : No : No Poor oral hygiene: No service: No Current occupational status: unemployed Cognitive needs: Yes (walker) Hearing needs: No Vision needs: Yes (glasses) Meds Allergies Allergy/AdvReac Type Severity Reaction Status Date / Time bupropion [From Wellbutrin] Allergy Intermediate Itching Verified 12/19/23 22:35 influenza virus vaccine, Allergy Unknown RASH Verified 12/19/23 22:35 specific [FLU VACCINE] latex Allergy Unknown Rash Verified 12/19/23 22:35 Sulfa (Sulfonamide Allergy Unknown UNKNOWN, Verified 12/19/23 22:35 Antibiotics) itch, itching baclofen Allergy twitching, Verified 12/19/23 22:35 falling down Home Medications ?Medication ?Instructions ?Recorded ?Confirmed ?Last Taken ?Type buprenorphine 8 mg-naloxone 2 mg 2 strip sublingual DAILY 09/18/21 12/20/23 03/22/23 08:30 History sublingual film dextroamphetamine-amphetamine 30 30 mg PO BID@0900,1500 09/18/21 12/20/23 03/22/23 08:30 History mg tablet sertraline 100 mg tablet 200 mg PO DAILY 07/31/22 12/20/23 03/22/23 08:30 History divalproex 500 mg tablet,extended 1,500 mg PO BEDTIME 08/13/22 12/20/23 Unknown History release 24 hr dextroamphetamine-amphetamine 10 1 tab PO DAILY@1200 06/28/23 12/20/23 Unknown History mg tablet doxepin 50 mg capsule 50 mg PO BEDTIME 06/28/23 12/20/23 Unknown History risperidone 3 mg tablet 3 mg PO BEDTIME 11/08/23 12/20/23 Unknown History linaclotide 290 mcg capsule 290 mcg PO DAILY 12/20/23 12/20/23 Unknown History (Linzess) nicotine (polacrilex) 4 mg gum 4 mg buccal BID 12/20/23 12/20/23 Unknown History nicotine 21 mg/24 hr daily 1 patch topical DAILY 12/20/23 12/20/23 Unknown History transdermal patch pantoprazole 40 mg tablet,delayed 40 mg PO DAILY@0630 12/20/23 12/20/23 Unknown History release trazodone 100 mg tablet 400 mg PO BEDTIME 12/20/23 12/20/23 Unknown History Physical Exam 2 Vital Signs: Vital Signs: Last Vital Signs Temp 97.7 F 12/20/23 08:52 Pulse 77 12/20/23 10:32 Resp 18 12/20/23 11:56 BP 141/69 H 12/20/23 10:32 Pulse Ox 96 12/20/23 10:32 O2 Del Method Room Air 12/20/23 10:32 O2 Flow Rate 3.5 12/20/23 06:18 BMI result Body Mass Index 30.9 EXAM: GENERAL: The patient is well developed and nontoxic, uncomfortable VITAL SIGNS:see workflow HEENT: Nonicteric sclerae, PERRLA, EOMI. Oropharynx clear. Moist mucous membranes. Conjunctivae appear well perfused. No thyroid mass. CHEST: Chest wall is nontender. HEART: Regular rate and rhythm without murmurs. LUNGS: Clear to auscultation bilaterally. ABDOMEN: Soft, positive bowel sounds, diffusely tender, no organomegaly, no flank tenderness SKIN: No rash, no excessive bruising, petechiae, or purpura. NEUROLOGIC: Cranial nerves II-XII intact without motor/sensory deficit. Psych: normal affect Results Labs 12/20/23 08:49 12/20/23 02:42 Labs: Short CBC 12/20/23 12/20/23 Range/Units 02:42 08:49 WBC 8.6 9.2 (4.8-10.8) X10*3/uL Hgb 13.9 15.5 (12.0-16.0) g/dl Hct 42.3 46.6 (37.0-47.0) % Plt Count 160 163 (160-400) X10*3/uL BMP 12/20/23 02:42 Sodium 139 Potassium 4.2 Chloride 100 Carbon Dioxide 28 BUN 18 H Creatinine 0.69 Calcium 9.3 Liver Function 12/20/23 Range/Units 02:42 Total Bilirubin 0.2 (0.0-1.0) mg/dL Direct Bilirubin < 0.2 (0.0-0.5) mg/dL AST 20 (5-31) U/L ALT 15 (0-31) U/L Alkaline Phosphatase 69 (39-117) U/L Albumin 3.8 (3.5-5.0) g/dL Urine 12/20/23 Range/Units 00:56 Urine Color Yellow Urine Appearance Clear Urine pH 5.5 (5.0-9.0) Ur Specific [place] 1.025 (1.005-1.025) Urine Protein Negative (Neg-Trace) mg/dL Urine Glucose (UA) Negative (Negative) mg/dL Imaging CT scan - abdomen: Attestation: I personally reviewed and interpreted this imaging study as follows: (stranding TI and right sided colon, hyperattenuated mucosa ) Assessment and Plan (1) Ileitis: Status: Acute Plan 1/ Enteritis probably infectious less likely IBD or ischemic PLAN: 1/ IV fluids 2/ analgesia 3/ bowel rest, can allow clears if tolerated 4/ cont ceftriaxone, can add flagyl 5/ if sx persist then colonoscopy 6 trend crp Procedures Date of Service Date of Service: 12/20/23
[2023-12-20] MEDS: metroNIDAZOLE/NS 500 MG/100 ML PIGGYBACK 100 MG IV ×2 (13:13→20:48)
[2023-12-20] MEDS: Enoxaparin Sodium 40 MG/0.4 ML SYRINGE SUBCUT (13:17)
--- NOTE | 2023-12-20 14:39 | PHA.MEDREC ---
Addendum entered by Alba Dickey [facility] 12/20/23 18:11: Reviewed by [facility] Addendum entered by Tarik Francisco 12/20/23 17:46: Attempted to talk to patient around 1540 and patient was not complaint and requested I come back in a hour or two. I went back to speak to patient at 5:20 and she had a family member at her bedside when I came in and again patient was not being complaint and stated she didnt want to do this right now and I asked when a good time would be to come back and stated this was the 3rd time and I just wanted to make sure we can get her medications continued correctly according to how she does them. Patient states she did not care and They are giving her, her medications here when I asked more about that and if she takes anything at home patient again stated she did not bring anything in from home so no and I state that I am noting that she confirmed she is not taking anything at home and she just brushed me off. I confirmed her mediations using pharmacy claims. Original Note: Pharmacy Consult ? Medication Reconciliation Pharmacy has completed the medication reconciliation. Tried to speak with patient to confirm meds, however she said she was in to much pain to speak with me. Patient just kept asking for more pain medicine! Call primary contact Mark but was the wrong number. Also tried to call sister Lila [place] , however she didn't answer. So. utilized claim to confirm med list. Called [facility] pharmacy to verify claims. Confirmed what I can and will have PM pharmacy follow up.
--- NOTE | 2023-12-20 16:46 | PM.EVENT ---
Event Note Date of Service: 12/21/23 Event Note: Seen on afternoon rounds Still with pain but much improved Looks a lot more comfortable Abdomen is soft Some tenderness on the mid abdomen Not septic looking Stable vital signs GI follow-up for terminal ileitis Continue current care Time Spent With Patient Time: Total time managing care of this patient today ____ minutes.
[2023-12-20] MEDS: 0.9 % Sodium Chloride Flush 3 ML SYRINGE IVFLUSH ×2 (17:11→20:49)
[2023-12-20] MEDS: Gabapentin 400 MG CAPSULE 800 MG PO (20:48)
[2023-12-20] MEDS: risperiDONE 3 MG TABLET PO (20:48)
[2023-12-20] MEDS: Divalproex Sodium ER 500 MG TAB.ER.24H 1500 MG PO (20:48)
[2023-12-20] MEDS: traZODone HCL 100 MG TABLET 400 MG PO (20:48)
[2023-12-20] MEDS: Doxepin HCl 25 MG CAPSULE 50 MG PO (22:07)
[2023-12-21] MEDS: cefTRIAXone sodium 1 GM in 0.9 % Sodium Chloride 50 ML IV (02:02)
[2023-12-21 03:17] VITALS: BP 132/60; PULSE 80; RESP 16; TEMP 36.7; O2SAT 93
[2023-12-21] MEDS: Morphine Sulfate 4 MG/ML CARTRIDGE IVPUSH ×2 (04:49→08:49)
[2023-12-21] MEDS: metroNIDAZOLE/NS 500 MG/100 ML PIGGYBACK 100 MG IV ×3 (04:50→21:29)
[2023-12-21 07:07] LABS: Anion Gap 14 (12-20); Blood Urea Nitrogen 7 mg/dL (9-16); Calcium 8.6 mg/dL (8.4-10.2); Carbon Dioxide 26 mmol/L (22-29); Chloride 104 mmol/L (96-108); Estimated Glomerular Filt Rate > 60; Glucose Random 135 mg/dL (60-115); Potassium 4.1 mmol/L (3.3-5.1); Sodium 140 mmol/L (135-145)
[2023-12-21 08:00] VITALS: BP 141/65; PULSE 95; RESP 17; TEMP 37; O2SAT 93
[2023-12-21] MEDS: Sertraline HCL 100 MG TABLET 200 MG PO (08:48)
[2023-12-21] MEDS: Gabapentin 400 MG CAPSULE 800 MG PO ×2 (08:48→13:55)
[2023-12-21] MEDS: Atorvastatin Calcium 20 MG TABLET PO (08:48)
[2023-12-21] MEDS: Amphetamine Mixed Salts 10 MG TABLET 30 MG PO ×2 (08:48→13:56)
[2023-12-21 08:49] VITALS: RESP 18
[2023-12-21] MEDS: Nicotine 21 MG PATCH.TD24 TRANSDERMA (08:49)
[2023-12-21] MEDS: 0.9 % Sodium Chloride Flush 3 ML SYRINGE IVFLUSH ×2 (08:49→21:29)
[2023-12-21] MEDS: Nicotine Polacrilex 2 MG GUM 4 MG BUCCAL (08:50)
[2023-12-21] MEDS: Buprenorphine/Naloxone 8/2 mg FILM 2 FILM SUBLINGUAL (08:54)
[2023-12-21] MEDS: Omeprazole 20 MG CAPSULE.DR PO (09:35)
[2023-12-21] MEDS: ondansetron HCL 4 MG/2 ML VIAL IVPUSH (09:35)
--- NOTE | 2023-12-21 10:01 | P.PNGS_ITS ---
Subjective Subjective Date of Service: 12/21/23 Interval history: Still has abdominal pain though states this is better Passing flatus 1 small episode of emesis earlier Physical Exam 2 Vital Signs: Vital Signs: Last Vital Signs Temp 98.6 F 12/21/23 08:00 Pulse 95 12/21/23 08:00 Resp 18 12/21/23 08:49 BP 141/65 H 12/21/23 08:00 Pulse Ox 93 12/21/23 08:00 O2 Del Method Nasal Cannula 12/21/23 08:00 O2 Flow Rate 3.0 12/21/23 08:00 BMI result Body Mass Index 30.9 Const: General: no acute distress Resp: Effort & Inspection: normal respiratory effort Cardio: Rate: regular rate GI: Other: Nondistended, some tenderness in the mid abdomen Palpation (GI): Soft to palpation, not firm and no guarding Objective Data Active Medications Acetaminophen (Acetaminophen 325 Mg Tablet) 650 mg PO Q6H PRN PRN Reason: Pain, Mild (Pain Scale 1-3), fever or headache Albuterol Sulfate (Albuterol Sulfate 90 Mcg 8 Gm Inhaler) 2 puff INHALE QID PRN PRN Reason: wheezing Amphetamine/Dextroamphetamine (Amphetamine Mixed Salts 10 Mg Tablet) 10 mg PO DAILY@1200 [facility] Amphetamine/Dextroamphetamine (Amphetamine Mixed Salts 10 Mg Tablet) 30 mg PO BID@0900,1500 [facility] Last Admin: 12/21/23 08:48 Dose: 30 mg Documented By: EUGENIA Atorvastatin Calcium (Atorvastatin Calcium 20 Mg Tablet) 20 mg PO DAILY [facility] Last Admin: 12/21/23 08:48 Dose: 20 mg Documented By: EUGENIA Buprenorphine/Naloxone (Buprenorphine/Naloxone 8/2 Mg Film) 1 film SUBLINGUAL DAILY [facility] Buprenorphine/Naloxone (Buprenorphine/Naloxone 8/2 Mg Film) 1 film BUCCAL DAILY@1400 [facility] Clotrimazole (Clotrimazole 1 % Cream 15 Gm Tube) 1 appl TOPICAL BID [facility]; Protocol Last Admin: 12/21/23 08:49 Dose: Not Given Documented By: EUGENIA Non-Admin Reason: Patient Refused Divalproex Sodium (Divalproex Sodium Er 500 Mg Tab.Er.24h) 1,500 mg PO BEDTIME [facility] Last Admin: 12/20/23 20:48 Dose: 1,500 mg Documented By: ODRISM Docusate Sodium (Docusate Sodium 100 Mg Capsule) 100 mg PO BID PRN PRN Reason: Constipation Doxepin HCl (Doxepin Hcl 25 Mg Capsule) 50 mg PO BEDTIME [facility] Last Admin: 12/20/23 22:07 Dose: 50 mg Documented By: BERLIN Enoxaparin Sodium (Enoxaparin Sodium 40 Mg/0.4 Ml Syringe) 40 mg SUBCUT Q24H [facility] Last Admin: 12/20/23 13:17 Dose: 40 mg Documented By: GENTILLuis Gabapentin (Gabapentin 400 Mg Capsule) 800 mg PO TID [facility] Last Admin: 12/21/23 08:48 Dose: 800 mg Documented By: COTEMA Ceftriaxone Sodium 1 gm/ (Sodium Chloride) 50 mls @ 100 mls/hr IV Q24H [facility] Last Infusion: 12/21/23 02:36 Dose: Infused Documented By: BERLIN Metronidazole (Flagyl) 500 mg in 100 mls @ 100 mls/hr IV Q8H [facility] Last Infusion: 12/21/23 05:52 Dose: Infused Documented By: BERLIN Melatonin (Melatonin 3 Mg Tablet) 6 mg PO BEDTIME PRN PRN Reason: Insomnia Morphine Sulfate (Morphine Sulfate 4 Mg/Ml Cartridge) 4 mg IVPUSH Q3H PRN; Protocol PRN Reason: Pain, Severe (Pain Scale 7-10) Last Admin: 12/21/23 08:49 Dose: 4 mg Documented By: COTEMA Nicotine (Nicotine 21 Mg Patch.Td24) 21 mg TRANSDERMA DAILY [facility] Last Admin: 12/21/23 08:49 Dose: 21 mg Documented By: COTEMA Nicotine Polacrilex (Nicotine Polacrilex 2 Mg Gum) 4 mg BUCCAL BID [facility] Last Admin: 12/21/23 08:50 Dose: 4 mg Documented By: COTEMA Non-Formulary Medication (Linaclotide [Linzess]) 290 mcg PO DAILY [facility] Omeprazole (Omeprazole 20 Mg Capsule.) 20 mg PO DAILY@0630 [facility] Last Admin: 12/21/23 09:35 Dose: 20 mg Documented By: COTEMA Ondansetron HCl (Ondansetron Hcl 4 Mg/2 Ml Vial) 4 mg IVPUSH Q8H PRN PRN Reason: Nausea and Vomiting Last Admin: 12/21/23 09:35 Dose: 4 mg Documented By: COTEMA Polyethylene Glycol (Polyethylene Glycol 3350 17 Gm Powd.Pack) 17 gm PO DAILY PRN PRN Reason: Constipation Risperidone (Risperidone 3 Mg Tablet) 3 mg PO BEDTIME [facility] Last Admin: 12/20/23 20:48 Dose: 3 mg Documented By: ODRISM Sertraline HCl (Sertraline Hcl 100 Mg Tablet) 200 mg PO DAILY [facility] Last Admin: 12/21/23 08:48 Dose: 200 mg Documented By: COTEMA Sodium Chloride (0.9 % Sodium Chloride Flush 3 Ml Syringe) 3 ml IVFLUSH QSHIFT [facility] Last Admin: 12/21/23 08:49 Dose: 3 ml Documented By: COTEMA Trazodone HCl (Trazodone Hcl 100 Mg Tablet) 400 mg PO BEDTIME [facility] Last Admin: 12/20/23 20:48 Dose: 400 mg Documented By: ODRISM Labs 12/20/23 08:49 12/21/23 05:45 Labs: Laboratory Results - last 24 hr 12/20/23 12/21/23 11:59 05:45 Anion Gap 14 Estim Creat Clear Calc 100.0 Estimated GFR > 60 Random Glucose 135 H Lactic Acid F/U @ 2Hr 1.5 Calcium 8.6 D Procedures Date of Service Date of Service: 12/21/23 Progress Note: A&P Assessment and plan (1) Ileitis: Status: Acute Assessment and Plan: Has terminal ileitis on CT scan Okay to try on clear liquids for today Encouraged to get out of bed and ambulate Pain management Antibiotics as per GI Exam otherwise benign IV fluids Time Spent With Patient Time: Total time managing care of this patient today ____ minutes. Quality Stroke Does the patient have a stroke diagnosis?: No VTE Prior VTE?: No VTE Risk Level:: Medical - moderate - high VTE Device Contraindication: Treatment Not Indicated VTE Drug Contraindication: N/A - Med Ordered
--- NOTE | 2023-12-21 11:04 | HO.PM.IMPN ---
Subjective Subjective Date of Service: 12/21/23 Interval History: still with pain Physical Exam Vital Signs: Vital Signs: Last Vital Signs Temp 98.6 F 12/21/23 08:00 Pulse 95 12/21/23 08:00 Resp 18 12/21/23 08:49 BP 141/65 H 12/21/23 08:00 Pulse Ox 93 12/21/23 08:00 O2 Del Method Nasal Cannula 12/21/23 08:00 O2 Flow Rate 3.0 12/21/23 08:00 BMI result Body Mass Index 30.9 Const: General: no acute distress Resp: Effort & Inspection: normal respiratory effort Cardio: Rate: regular rate GI: Other: Nondistended, some tenderness in the mid abdomen Palpation (GI): Soft to palpation, not firm and no guarding Objective Data Active Medications Acetaminophen (Acetaminophen 325 Mg Tablet) 650 mg PO Q6H PRN PRN Reason: Pain, Mild (Pain Scale 1-3), fever or headache Albuterol Sulfate (Albuterol Sulfate 90 Mcg 8 Gm Inhaler) 2 puff INHALE QID PRN PRN Reason: wheezing Amphetamine/Dextroamphetamine (Amphetamine Mixed Salts 10 Mg Tablet) 10 mg PO DAILY@1200 [facility] Amphetamine/Dextroamphetamine (Amphetamine Mixed Salts 10 Mg Tablet) 30 mg PO BID@0900,1500 [facility] Last Admin: 12/21/23 08:48 Dose: 30 mg Documented By: EUGENIA Atorvastatin Calcium (Atorvastatin Calcium 20 Mg Tablet) 20 mg PO DAILY [facility] Last Admin: 12/21/23 08:48 Dose: 20 mg Documented By: COTSUKHJINDER Buprenorphine/Naloxone (Buprenorphine/Naloxone 8/2 Mg Film) 1 film SUBLINGUAL DAILY [facility] Buprenorphine/Naloxone (Buprenorphine/Naloxone 8/2 Mg Film) 1 film BUCCAL DAILY@1400 [facility] Clotrimazole (Clotrimazole 1 % Cream 15 Gm Tube) 1 appl TOPICAL BID [facility]; Protocol Last Admin: 12/21/23 08:49 Dose: Not Given Documented By: COTEMA Non-Admin Reason: Patient Refused Divalproex Sodium (Divalproex Sodium Er 500 Mg Tab.Er.24h) 1,500 mg PO BEDTIME [facility] Last Admin: 12/20/23 20:48 Dose: 1,500 mg Documented By: ODRISM Docusate Sodium (Docusate Sodium 100 Mg Capsule) 100 mg PO BID PRN PRN Reason: Constipation Doxepin HCl (Doxepin Hcl 25 Mg Capsule) 50 mg PO BEDTIME [facility] Last Admin: 12/20/23 22:07 Dose: 50 mg Documented By: BERLIN Enoxaparin Sodium (Enoxaparin Sodium 40 Mg/0.4 Ml Syringe) 40 mg SUBCUT Q24H [facility] Last Admin: 12/20/23 13:17 Dose: 40 mg Documented By: GENTNATHALY Gabapentin (Gabapentin 400 Mg Capsule) 800 mg PO TID [facility] Last Admin: 12/21/23 08:48 Dose: 800 mg Documented By: DENNY.COTEMA Ceftriaxone Sodium 1 gm/ (Sodium Chloride) 50 mls @ 100 mls/hr IV Q24H [facility] Last Infusion: 12/21/23 02:36 Dose: Infused Documented By: BERLIN Metronidazole (Flagyl) 500 mg in 100 mls @ 100 mls/hr IV Q8H [facility] Last Infusion: 12/21/23 05:52 Dose: Infused Documented By: BERLIN Melatonin (Melatonin 3 Mg Tablet) 6 mg PO BEDTIME PRN PRN Reason: Insomnia Morphine Sulfate (Morphine Sulfate 4 Mg/Ml Cartridge) 4 mg IVPUSH Q3H PRN; Protocol PRN Reason: Pain, Severe (Pain Scale 7-10) Last Admin: 12/21/23 08:49 Dose: 4 mg Documented By: COTEMA Nicotine (Nicotine 21 Mg Patch.Td24) 21 mg TRANSDERMA DAILY [facility] Last Admin: 12/21/23 08:49 Dose: 21 mg Documented By: DENNY.COTEMA Nicotine Polacrilex (Nicotine Polacrilex 2 Mg Gum) 4 mg BUCCAL BID [facility] Last Admin: 12/21/23 08:50 Dose: 4 mg Documented By: DENNY.COTEMA Non-Formulary Medication (Linaclotide [Linzess]) 290 mcg PO DAILY [facility] Omeprazole (Omeprazole 20 Mg Capsule.Dr) 20 mg PO DAILY@0630 [facility] Last Admin: 12/21/23 09:35 Dose: 20 mg Documented By: DENNY.COTEMA Ondansetron HCl (Ondansetron Hcl 4 Mg/2 Ml Vial) 4 mg IVPUSH Q8H PRN PRN Reason: Nausea and Vomiting Last Admin: 12/21/23 09:35 Dose: 4 mg Documented By: DENNY.COTEMA Polyethylene Glycol (Polyethylene Glycol 3350 17 Gm Powd.Pack) 17 gm PO DAILY PRN PRN Reason: Constipation Risperidone (Risperidone 3 Mg Tablet) 3 mg PO BEDTIME [facility] Last Admin: 12/20/23 20:48 Dose: 3 mg Documented By: ODRISM Sertraline HCl (Sertraline Hcl 100 Mg Tablet) 200 mg PO DAILY [facility] Last Admin: 12/21/23 08:48 Dose: 200 mg Documented By: COTEMA Sodium Chloride (0.9 % Sodium Chloride Flush 3 Ml Syringe) 3 ml IVFLUSH QSHIFT [facility] Last Admin: 12/21/23 08:49 Dose: 3 ml Documented By: COTEMA Trazodone HCl (Trazodone Hcl 100 Mg Tablet) 400 mg PO BEDTIME [facility] Last Admin: 12/20/23 20:48 Dose: 400 mg Documented By: ODRISM Labs 12/20/23 08:49 12/21/23 05:45 Labs: Laboratory Results - last 24 hr 12/20/23 12/21/23 11:59 05:45 Anion Gap 14 Estim Creat Clear Calc 100.0 Estimated GFR > 60 Random Glucose 135 H Lactic Acid F/U @ 2Hr 1.5 Calcium 8.6 D Assessment and Plan (1) Ileitis: Status: Acute Plan 63F PMH copd, hld, chronic pain, obesity s/p sleeve gastrectomy, gerd, adhdh, mood disorder presented with abd pain terminal ileitis continue rocephin, flagyl, ivf, monitor uti rocephin, follow up cultures copd stable gerd ppi full code dvt prophylaxis - lovenox reason for continued hospitalization: abd pain Quality Stroke Does the patient have a stroke diagnosis?: No VTE Prior VTE?: No VTE Risk Level:: Medical - moderate - high VTE Device Contraindication: Treatment Not Indicated VTE Drug Contraindication: N/A - Med Ordered
[2023-12-21] MEDS: Amphetamine Mixed Salts 10 MG TABLET PO (12:05)
[2023-12-21] MEDS: Acetaminophen 325 MG TABLET 650 MG PO (12:05)
[2023-12-21] MEDS: Enoxaparin Sodium 40 MG/0.4 ML SYRINGE SUBCUT (12:05)
[2023-12-21] MEDS: Buprenorphine/Naloxone 8/2 mg FILM 1 FILM BUCCAL (13:55)
[2023-12-21] MEDS: Albuterol Sulfate 90 MCG 8 GM INHALER 2 PUFF INHALE (13:56)
[2023-12-21 15:33] VITALS: BP 105/56; PULSE 88; RESP 18; TEMP 36; O2SAT 92
--- NOTE | 2023-12-21 16:33 | MHC.CM.PN ---
CM ATTEMPTED TO MEET WITH PT WHO WAS SLEEPING CM TO REVISIT
--- NOTE | 2023-12-21 19:38 | PC.NURSE ---
accepted care of patient at approx 3pm, pt drowsy/sleeping remainder of shift but easily rousable. She turned and repositioned self independently.
[2023-12-21 20:00] VITALS: BP 118/59; PULSE 77; RESP 18; TEMP 36.1; O2SAT 90
[2023-12-21 22:28] VITALS: O2SAT 97
[2023-12-22] MEDS: Morphine Sulfate 4 MG/ML CARTRIDGE IVPUSH ×2 (01:30→09:58)
[2023-12-22] MEDS: cefTRIAXone sodium 1 GM in 0.9 % Sodium Chloride 50 ML IV (01:30)
[2023-12-22] MEDS: ondansetron HCL 4 MG/2 ML VIAL IVPUSH (01:36)
[2023-12-22] MEDS: Acetaminophen 325 MG TABLET 650 MG PO ×3 (01:37→19:41)
[2023-12-22 03:04] VITALS: BP 139/74; PULSE 85; RESP 18; TEMP 36.1; O2SAT 95
[2023-12-22 04:08] VITALS: O2SAT 99
[2023-12-22] MEDS: metroNIDAZOLE/NS 500 MG/100 ML PIGGYBACK 100 MG IV (04:49)
[2023-12-22] MEDS: Omeprazole 20 MG CAPSULE.DR PO (06:21)
[2023-12-22 07:20] LABS: Blood Urea Nitrogen 10 mg/dL (9-16); Calcium 8.8 mg/dL (8.4-10.2); Creatinine Clr Calc Pharmacy 110.9; Estimated Glomerular Filt Rate > 60; Glucose Fasting 117 mg/dL (60-99); Glucose Random 117 mg/dL (60-115); Magnesium 2.3 mg/dL (1.6-2.6)
[2023-12-22 07:22] LABS: Hematocrit 41.2 % (37.0-47.0); Hemoglobin 12.9 g/dl (12.0-16.0); Mean Corpuscular HGB Conc 31.3 g/dl (31.0-35.0); Mean Corpuscular Hemoglobin 29.5 pg (27.0-33.0); Mean Corpuscular Volume 94.1 fL (80.0-98.0); Mean Platelet Volume 9.8 fL (9.4-12.3); Platelet Count 151 X10*3/uL (160-400); Red Blood Count 4.38 X10*6/uL (4.20-5.50); Red Cell Distribution Width 13.4 % (11.0-16.0); White Blood Count 10.4 X10*3/uL (4.8-10.8)
[2023-12-22 07:58] VITALS: BP 131/62; PULSE 65; RESP 18; TEMP 36.2; O2SAT 93
[2023-12-22 08:20] LABS: Anion Gap 12 (12-20); Carbon Dioxide 34 mmol/L (22-29); Chloride 100 mmol/L (96-108); Potassium 4.2 mmol/L (3.3-5.1); Sodium 142 mmol/L (135-145)
--- NOTE | 2023-12-22 09:04 | HO.PM.IMPN ---
Subjective Subjective Date of Service: 12/22/23 Interval History: ready for solids Physical Exam Vital Signs: Vital Signs: Last Vital Signs Temp 97.1 F 12/22/23 07:58 Pulse 65 12/22/23 07:58 Resp 18 12/22/23 07:58 BP 131/62 12/22/23 07:58 Pulse Ox 93 12/22/23 07:58 O2 Del Method Oxymask 12/22/23 07:58 O2 Flow Rate 3.0 12/22/23 07:58 BMI result Body Mass Index 30.9 Const: General: no acute distress Resp: Effort & Inspection: normal respiratory effort Cardio: Rate: regular rate GI: Other: Nondistended, some tenderness in the mid abdomen Palpation (GI): Soft to palpation, not firm and no guarding Objective Data Active Medications Acetaminophen (Acetaminophen 325 Mg Tablet) 650 mg PO Q6H PRN PRN Reason: Pain, Mild (Pain Scale 1-3), fever or headache Last Admin: 12/22/23 01:37 Dose: 650 mg Documented By: ODRISM Albuterol Sulfate (Albuterol Sulfate 90 Mcg 8 Gm Inhaler) 2 puff INHALE QID PRN PRN Reason: wheezing Last Admin: 12/21/23 13:56 Dose: 2 puff Documented By: COTEMA Amphetamine/Dextroamphetamine (Amphetamine Mixed Salts 10 Mg Tablet) 10 mg PO DAILY@1200 [facility] Last Admin: 12/21/23 12:05 Dose: 10 mg Documented By: COTEMA Amphetamine/Dextroamphetamine (Amphetamine Mixed Salts 10 Mg Tablet) 30 mg PO BID@0900,1500 [facility] Last Admin: 12/21/23 13:56 Dose: 30 mg Documented By: COTEMA Atorvastatin Calcium (Atorvastatin Calcium 20 Mg Tablet) 20 mg PO DAILY [facility] Last Admin: 12/21/23 08:48 Dose: 20 mg Documented By: COTEMA Buprenorphine/Naloxone (Buprenorphine/Naloxone 8/2 Mg Film) 1 film SUBLINGUAL DAILY [facility] Buprenorphine/Naloxone (Buprenorphine/Naloxone 8/2 Mg Film) 1 film BUCCAL DAILY@1400 [facility] Last Admin: 12/21/23 13:55 Dose: 1 film Documented By: COTEMA Clotrimazole (Clotrimazole 1 % Cream 15 Gm Tube) 1 appl TOPICAL BID [facility]; Protocol Last Admin: 12/21/23 21:34 Dose: Not Given Documented By: BERLIN Non-Admin Reason: Patient Refused Divalproex Sodium (Divalproex Sodium Er 500 Mg Tab.Er.24h) 1,500 mg PO BEDTIME [facility] Last Admin: 12/21/23 21:33 Dose: Not Given Documented By: BERLIN Non-Admin Reason: too sleepy Docusate Sodium (Docusate Sodium 100 Mg Capsule) 100 mg PO BID PRN PRN Reason: Constipation Doxepin HCl (Doxepin Hcl 25 Mg Capsule) 50 mg PO BEDTIME [facility] Last Admin: 12/21/23 21:34 Dose: Not Given Documented By: BERLIN Non-Admin Reason: too sleepy Enoxaparin Sodium (Enoxaparin Sodium 40 Mg/0.4 Ml Syringe) 40 mg SUBCUT Q24H [facility] Last Admin: 12/21/23 12:05 Dose: 40 mg Documented By: COTSUKHJINDER Gabapentin (Gabapentin 400 Mg Capsule) 800 mg PO TID [facility] Last Admin: 12/21/23 21:34 Dose: Not Given Documented By: BERLIN Non-Admin Reason: too sleepy Ceftriaxone Sodium 1 gm/ (Sodium Chloride) 50 mls @ 100 mls/hr IV Q24H [facility] Last Infusion: 12/22/23 02:04 Dose: Infused Documented By: BERLIN Metronidazole (Flagyl) 500 mg in 100 mls @ 100 mls/hr IV Q8H [facility] Last Infusion: 12/22/23 06:04 Dose: Infused Documented By: BERLIN Melatonin (Melatonin 3 Mg Tablet) 6 mg PO BEDTIME PRN PRN Reason: Insomnia Morphine Sulfate (Morphine Sulfate 4 Mg/Ml Cartridge) 4 mg IVPUSH Q3H PRN; Protocol PRN Reason: Pain, Severe (Pain Scale 7-10) Last Admin: 12/22/23 01:30 Dose: 4 mg Documented By: BERLIN Nicotine (Nicotine 21 Mg Patch.Td24) 21 mg TRANSDERMA DAILY [facility] Last Admin: 12/21/23 08:49 Dose: 21 mg Documented By: EUGENIA Nicotine Polacrilex (Nicotine Polacrilex 2 Mg Gum) 4 mg BUCCAL BID [facility] Last Admin: 12/21/23 21:33 Dose: Not Given Documented By: BERLIN Non-Admin Reason: too sleepy Non-Formulary Medication (Linaclotide [Linzess]) 290 mcg PO DAILY [facility] Omeprazole (Omeprazole 20 Mg Capsule.Dr) 20 mg PO DAILY@0630 [facility] Last Admin: 12/22/23 06:21 Dose: 20 mg Documented By: BERLIN Ondansetron HCl (Ondansetron Hcl 4 Mg/2 Ml Vial) 4 mg IVPUSH Q8H PRN PRN Reason: Nausea and Vomiting Last Admin: 12/22/23 01:36 Dose: 4 mg Documented By: BERLIN Polyethylene Glycol (Polyethylene Glycol 3350 17 Gm Powd.Pack) 17 gm PO DAILY PRN PRN Reason: Constipation Risperidone (Risperidone 3 Mg Tablet) 3 mg PO BEDTIME [facility] Last Admin: 12/21/23 21:33 Dose: Not Given Documented By: BERLIN Non-Admin Reason: too sleepy Sertraline HCl (Sertraline Hcl 100 Mg Tablet) 200 mg PO DAILY [facility] Last Admin: 12/21/23 08:48 Dose: 200 mg Documented By: COTEMA Sodium Chloride (0.9 % Sodium Chloride Flush 3 Ml Syringe) 3 ml IVFLUSH QSHIFT [facility] Last Admin: 12/21/23 21:29 Dose: 3 ml Documented By: BERLIN Trazodone HCl (Trazodone Hcl 100 Mg Tablet) 400 mg PO BEDTIME [facility] Last Admin: 12/21/23 21:33 Dose: Not Given Documented By: BERLIN Non-Admin Reason: too sleepy Labs 12/22/23 05:45 12/22/23 05:45 Labs: Laboratory Results - last 24 hr 12/22/23 05:45 MCV 94.1 MCH 29.5 MCHC 31.3 RDW 13.4 Plt Count 151 L MPV 9.8 Absolute Nucleated RBC 0.000 Nucleated RBC % (auto) 0.0 Anion Gap 12 Estim Creat Clear Calc 110.9 Estimated GFR > 60 Random Glucose 117 H Fasting Glucose 117 H Calcium 8.8 Magnesium 2.3 Microbiology Microbiology Results: Microbiology 12/20/23 02:42 Urine Culture - Final Urine clean catch - Clean Catch Midstream Assessment and Plan (1) Ileitis: Status: Acute Plan 63F PMH copd, hld, chronic pain, obesity s/p sleeve gastrectomy, gerd, adhdh, mood disorder presented with abd pain terminal ileitis continue rocephin, flagyl advancing to solids acute hpyoixc respiratory failure check cxr, wean o2 as tolerated uti rocephin day 3, culture negative copd stable gerd ppi full code dvt prophylaxis - lovenox reason for continued hospitalization: hypoxia Quality Stroke Does the patient have a stroke diagnosis?: No VTE Prior VTE?: No VTE Risk Level:: Medical - moderate - high VTE Device Contraindication: Treatment Not Indicated VTE Drug Contraindication: N/A - Med Ordered
[2023-12-22] MEDS: 0.9 % Sodium Chloride Flush 3 ML SYRINGE IVFLUSH (09:05)
[2023-12-22] MEDS: Nicotine Polacrilex 2 MG GUM 4 MG BUCCAL ×2 (09:06→19:41)
[2023-12-22] MEDS: Gabapentin 400 MG CAPSULE 800 MG PO ×3 (09:06→19:40)
[2023-12-22] MEDS: Sertraline HCL 100 MG TABLET 200 MG PO (09:07)
[2023-12-22] MEDS: Atorvastatin Calcium 20 MG TABLET PO (09:07)
[2023-12-22] MEDS: Buprenorphine/Naloxone 8/2 mg FILM 1 FILM SUBLINGUAL (09:08)
[2023-12-22] MEDS: Amphetamine Mixed Salts 10 MG TABLET 30 MG PO ×2 (09:09→14:36)
[2023-12-22] MEDS: Clotrimazole 1 % Cream 15 GM TUBE 1 APPL TOPICAL (09:11)
[2023-12-22] MEDS: Nicotine 21 MG PATCH.TD24 TRANSDERMA (09:11)
--- NOTE | 2023-12-22 09:39 | P.PNGS_ITS ---
Subjective Subjective Date of Service: 12/22/23 Interval history: Feels much better Still with some pain but much improved Passing flatus Tolerating clear liquids Physical Exam 2 Vital Signs: Vital Signs: Last Vital Signs Temp 97.1 F 12/22/23 07:58 Pulse 65 12/22/23 07:58 Resp 18 12/22/23 07:58 BP 131/62 12/22/23 07:58 Pulse Ox 93 12/22/23 07:58 O2 Del Method Oxymask 12/22/23 07:58 O2 Flow Rate 3.0 12/22/23 07:58 BMI result Body Mass Index 30.9 Const: Other: Looks well General: comfortable and no acute distress Resp: Effort & Inspection: normal respiratory effort Cardio: Rate: regular rate GI: Other: Mild tenderness mid abdomen Inspection: No distended Palpation (GI): Soft to palpation, not firm and no guarding Objective Data Active Medications Acetaminophen (Acetaminophen 325 Mg Tablet) 650 mg PO Q6H PRN PRN Reason: Pain, Mild (Pain Scale 1-3), fever or headache Last Admin: 12/22/23 09:07 Dose: 650 mg Documented By: LEXI Albuterol Sulfate (Albuterol Sulfate 90 Mcg 8 Gm Inhaler) 2 puff INHALE QID PRN PRN Reason: wheezing Last Admin: 12/21/23 13:56 Dose: 2 puff Documented By: EUGENIA Amphetamine/Dextroamphetamine (Amphetamine Mixed Salts 10 Mg Tablet) 10 mg PO DAILY@1200 [facility] Last Admin: 12/21/23 12:05 Dose: 10 mg Documented By: EUGENIA Amphetamine/Dextroamphetamine (Amphetamine Mixed Salts 10 Mg Tablet) 30 mg PO BID@0900,1500 [facility] Last Admin: 12/22/23 09:09 Dose: 30 mg Documented By: LEXI Atorvastatin Calcium (Atorvastatin Calcium 20 Mg Tablet) 20 mg PO DAILY [facility] Last Admin: 12/22/23 09:07 Dose: 20 mg Documented By: LEXI Buprenorphine/Naloxone (Buprenorphine/Naloxone 8/2 Mg Film) 1 film SUBLINGUAL DAILY [facility] Last Admin: 12/22/23 09:08 Dose: 1 film Documented By: LEXI Buprenorphine/Naloxone (Buprenorphine/Naloxone 8/2 Mg Film) 1 film BUCCAL DAILY@1400 [facility] Last Admin: 12/21/23 13:55 Dose: 1 film Documented By: EUGENIA Clotrimazole (Clotrimazole 1 % Cream 15 Gm Tube) 1 appl TOPICAL BID [facility]; Protocol Last Admin: 12/22/23 09:11 Dose: 1 appl Documented By: LEXI Divalproex Sodium (Divalproex Sodium Er 500 Mg Tab.Er.24h) 1,500 mg PO BEDTIME [facility] Last Admin: 12/21/23 21:33 Dose: Not Given Documented By: BERLIN Non-Admin Reason: too sleepy Docusate Sodium (Docusate Sodium 100 Mg Capsule) 100 mg PO BID PRN PRN Reason: Constipation Doxepin HCl (Doxepin Hcl 25 Mg Capsule) 50 mg PO BEDTIME [facility] Last Admin: 12/21/23 21:34 Dose: Not Given Documented By: BERLIN Non-Admin Reason: too sleepy Enoxaparin Sodium (Enoxaparin Sodium 40 Mg/0.4 Ml Syringe) 40 mg SUBCUT Q24H [facility] Last Admin: 12/21/23 12:05 Dose: 40 mg Documented By: EUGENIA Gabapentin (Gabapentin 400 Mg Capsule) 800 mg PO TID [facility] Last Admin: 12/22/23 09:06 Dose: 800 mg Documented By: LEXI Ceftriaxone Sodium 1 gm/ (Sodium Chloride) 50 mls @ 100 mls/hr IV Q24H [facility] Last Infusion: 12/22/23 02:04 Dose: Infused Documented By: BERLIN Metronidazole (Flagyl) 500 mg in 100 mls @ 100 mls/hr IV Q8H [facility] Last Infusion: 12/22/23 06:04 Dose: Infused Documented By: BERLIN Melatonin (Melatonin 3 Mg Tablet) 6 mg PO BEDTIME PRN PRN Reason: Insomnia Morphine Sulfate (Morphine Sulfate 4 Mg/Ml Cartridge) 4 mg IVPUSH Q3H PRN; Protocol PRN Reason: Pain, Severe (Pain Scale 7-10) Last Admin: 12/22/23 01:30 Dose: 4 mg Documented By: BERLIN Nicotine (Nicotine 21 Mg Patch.Td24) 21 mg TRANSDERMA DAILY [facility] Last Admin: 12/22/23 09:11 Dose: 21 mg Documented By: LEXI Nicotine Polacrilex (Nicotine Polacrilex 2 Mg Gum) 4 mg BUCCAL BID [facility] Last Admin: 12/22/23 09:06 Dose: 4 mg Documented By: LEXI Non-Formulary Medication (Linaclotide [Linzess]) 290 mcg PO DAILY [facility] Omeprazole (Omeprazole 20 Mg Capsule.Dr) 20 mg PO DAILY@0630 [facility] Last Admin: 12/22/23 06:21 Dose: 20 mg Documented By: BERLIN Ondansetron HCl (Ondansetron Hcl 4 Mg/2 Ml Vial) 4 mg IVPUSH Q8H PRN PRN Reason: Nausea and Vomiting Last Admin: 12/22/23 01:36 Dose: 4 mg Documented By: BERLIN Polyethylene Glycol (Polyethylene Glycol 3350 17 Gm Powd.Pack) 17 gm PO DAILY PRN PRN Reason: Constipation Risperidone (Risperidone 3 Mg Tablet) 3 mg PO BEDTIME [facility] Last Admin: 12/21/23 21:33 Dose: Not Given Documented By: BERLIN Non-Admin Reason: too sleepy Sertraline HCl (Sertraline Hcl 100 Mg Tablet) 200 mg PO DAILY [facility] Last Admin: 12/22/23 09:07 Dose: 200 mg Documented By: LEXI Sodium Chloride (0.9 % Sodium Chloride Flush 3 Ml Syringe) 3 ml IVFLUSH QSHIFT [facility] Last Admin: 12/22/23 09:05 Dose: 3 ml Documented By: LEXI Trazodone HCl (Trazodone Hcl 100 Mg Tablet) 400 mg PO BEDTIME [facility] Last Admin: 12/21/23 21:33 Dose: Not Given Documented By: BERLIN Non-Admin Reason: too sleepy Labs 12/22/23 05:45 12/22/23 05:45 Labs: Laboratory Results - last 24 hr 12/22/23 05:45 MCV 94.1 MCH 29.5 MCHC 31.3 RDW 13.4 Plt Count 151 L MPV 9.8 Absolute Nucleated RBC 0.000 Nucleated RBC % (auto) 0.0 Anion Gap 12 Estim Creat Clear Calc 110.9 Estimated GFR > 60 Random Glucose 117 H Fasting Glucose 117 H Calcium 8.8 Magnesium 2.3 Microbiology Microbiology Results: Microbiology 12/20/23 02:42 Urine Culture - Final Urine clean catch - Clean Catch Midstream Procedures Date of Service Date of Service: 12/22/23 Progress Note: A&P Assessment and plan (1) Ileitis: Status: Acute Assessment and Plan: Consistent with terminal ileitis Etiology uncertain GI following the patient Much improved Okay to try regular diet Future management as per the GI service - will need workup for etiology of terminal ileitis Abdominal exam benign Time Spent With Patient Time: Total time managing care of this patient today ____ minutes. Quality Stroke Does the patient have a stroke diagnosis?: No VTE Prior VTE?: No VTE Risk Level:: Medical - moderate - high VTE Device Contraindication: Treatment Not Indicated VTE Drug Contraindication: N/A - Med Ordered
[2023-12-22 09:58] VITALS: RESP 18
[2023-12-22] MEDS: Amphetamine Mixed Salts 10 MG TABLET PO (12:33)
[2023-12-22] MEDS: Docusate Sodium 100 MG CAPSULE PO (12:34)
[2023-12-22] MEDS: Enoxaparin Sodium 40 MG/0.4 ML SYRINGE SUBCUT (12:34)
[2023-12-22] MEDS: Buprenorphine/Naloxone 8/2 mg FILM 1 FILM BUCCAL (14:37)
--- NOTE | 2023-12-22 15:22 | PC.NURSE ---
Pt. was educated about keeping her Oxymask on, , she also refused bed alarm and chair alarm this afternoon, camera in the room. Pt still needs reeducation and redirection frequently,
[2023-12-22 15:38] VITALS: BP 118/83; PULSE 83; RESP 20; TEMP 36.1; O2SAT 93
[2023-12-22] MEDS: oxyCODONE HCl Immed Release 5 MG TABLET PO ×2 (16:10→20:21)
[2023-12-22] MEDS: Nicotine Polacrilex 2 MG GUM BUCCAL (16:33)
[2023-12-22] MEDS: Amoxicillin/Potassium Clav 875 MG TABLET PO (17:15)
[2023-12-22] MEDS: Divalproex Sodium ER 500 MG TAB.ER.24H 1500 MG PO (19:40)
[2023-12-22] MEDS: risperiDONE 3 MG TABLET PO (19:41)
[2023-12-22] MEDS: Doxepin HCl 25 MG CAPSULE 50 MG PO (19:41)
[2023-12-22] MEDS: traZODone HCL 100 MG TABLET 400 MG PO (19:42)
[2023-12-22 20:00] VITALS: BP 122/67; PULSE 91; RESP 18; TEMP 36.1; O2SAT 92
[2023-12-22] MEDS: Melatonin 3 MG TABLET 6 MG PO (20:21)
[2023-12-23] VITALS (12 sets, daily range): BP systolic 119–155; BP diastolic 49–75; PULSE 58–93; RESP 14–19; TEMP 36–36.7; O2SAT 85–98
[2023-12-23] MEDS: Omeprazole 20 MG CAPSULE.DR PO (05:09)
[2023-12-23] MEDS: Acetaminophen 325 MG TABLET 650 MG PO (05:09)
[2023-12-23] MEDS: Amoxicillin/Potassium Clav 875 MG TABLET PO ×2 (05:09→17:25)
[2023-12-23] MEDS: oxyCODONE HCl Immed Release 5 MG TABLET PO (05:13)
[2023-12-23] MEDS: Ondansetron ODT 4 MG TAB.RAPDIS TRANSLINGU (05:34)
--- NOTE | 2023-12-23 09:34 | P.PNIM_ITS ---
Subjective Subjective Date of Service: 12/23/23 Interval History: headache Physical Exam 2 Vital Signs: Vital Signs: Last Vital Signs Temp 97.1 F 12/23/23 08:00 Pulse 93 12/23/23 08:00 Resp 18 12/23/23 08:00 BP 119/58 L 12/23/23 08:00 Pulse Ox 94 12/23/23 08:48 O2 Del Method Nasal Cannula 12/23/23 08:48 O2 Flow Rate 3 12/23/23 08:48 BMI result Body Mass Index 30.9 Const: Other: Looks well General: comfortable and no acute distress Resp: Effort & Inspection: normal respiratory effort Cardio: Rate: regular rate GI: Other: Mild tenderness mid abdomen Inspection: No distended Palpation (GI): Soft to palpation, not firm and no guarding Objective Data Active Medications Acetaminophen (Acetaminophen 325 Mg Tablet) 650 mg PO Q6H PRN PRN Reason: Pain, Mild (Pain Scale 1-3), fever or headache Last Admin: 12/23/23 05:09 Dose: 650 mg Documented By: JENNIFER Albuterol Sulfate (Albuterol Sulfate 90 Mcg 8 Gm Inhaler) 2 puff INHALE QID PRN PRN Reason: wheezing Last Admin: 12/21/23 13:56 Dose: 2 puff Documented By: EUGENIA Amoxicillin/Clavulanate Potassium (Amoxicillin/Potassium Clav 875 Mg Tablet) 875 mg PO Q12H [facility] Last Admin: 12/23/23 05:09 Dose: 875 mg Documented By: JENNIFER Amphetamine/Dextroamphetamine (Amphetamine Mixed Salts 10 Mg Tablet) 10 mg PO DAILY@1200 [facility] Last Admin: 12/22/23 12:33 Dose: 10 mg Documented By: LEXI Amphetamine/Dextroamphetamine (Amphetamine Mixed Salts 10 Mg Tablet) 30 mg PO BID@0900,1500 [facility] Last Admin: 12/22/23 14:36 Dose: 30 mg Documented By: LEXI Atorvastatin Calcium (Atorvastatin Calcium 20 Mg Tablet) 20 mg PO DAILY [facility] Last Admin: 12/22/23 09:07 Dose: 20 mg Documented By: LEXI Buprenorphine/Naloxone (Buprenorphine/Naloxone 8/2 Mg Film) 1 film SUBLINGUAL DAILY [facility] Last Admin: 12/22/23 09:08 Dose: 1 film Documented By: LEXI Buprenorphine/Naloxone (Buprenorphine/Naloxone 8/2 Mg Film) 1 film BUCCAL DAILY@1400 [facility] Last Admin: 12/22/23 14:37 Dose: 1 film Documented By: LEXI Clotrimazole (Clotrimazole 1 % Cream 15 Gm Tube) 1 appl TOPICAL BID [facility]; Protocol Last Admin: 12/22/23 19:49 Dose: Not Given Documented By: JENNIFER Non-Admin Reason: Patient Refused Divalproex Sodium (Divalproex Sodium Er 500 Mg Tab.Er.24h) 1,500 mg PO BEDTIME [facility] Last Admin: 12/22/23 19:40 Dose: 1,500 mg Documented By: JENNIFER Docusate Sodium (Docusate Sodium 100 Mg Capsule) 100 mg PO BID PRN PRN Reason: Constipation Last Admin: 12/22/23 12:34 Dose: 100 mg Documented By: LEXI Doxepin HCl (Doxepin Hcl 25 Mg Capsule) 50 mg PO BEDTIME [facility] Last Admin: 12/22/23 19:41 Dose: 50 mg Documented By: JENNIFER Enoxaparin Sodium (Enoxaparin Sodium 40 Mg/0.4 Ml Syringe) 40 mg SUBCUT Q24H [facility] Last Admin: 12/22/23 12:34 Dose: 40 mg Documented By: LEXI Gabapentin (Gabapentin 400 Mg Capsule) 800 mg PO TID [facility] Last Admin: 12/22/23 19:40 Dose: 800 mg Documented By: JENNIFER Melatonin (Melatonin 3 Mg Tablet) 6 mg PO BEDTIME PRN PRN Reason: Insomnia Last Admin: 12/22/23 20:21 Dose: 6 mg Documented By: JENNIFER Nicotine (Nicotine 21 Mg Patch.Td24) 21 mg TRANSDERMA DAILY [facility] Last Admin: 12/22/23 09:11 Dose: 21 mg Documented By: LEXI Nicotine Polacrilex (Nicotine Polacrilex 2 Mg Gum) 4 mg BUCCAL BID [facility] Last Admin: 12/22/23 19:41 Dose: 4 mg Documented By: JENNIFER Nicotine Polacrilex (Nicotine Polacrilex 2 Mg Gum) 2 mg BUCCAL Q1H PRN PRN Reason: craving Last Admin: 12/22/23 16:33 Dose: 2 mg Documented By: JENNIFER Non-Formulary Medication (Linaclotide [Linzess]) 290 mcg PO DAILY [facility] Omeprazole (Omeprazole 20 Mg Capsule.Dr) 20 mg PO DAILY@0630 [facility] Last Admin: 12/23/23 05:09 Dose: 20 mg Documented By: JENNIFER Ondansetron HCl (Ondansetron Hcl 4 Mg/2 Ml Vial) 4 mg IVPUSH Q8H PRN PRN Reason: Nausea and Vomiting Last Admin: 12/22/23 01:36 Dose: 4 mg Documented By: BERLIN Ondansetron HCl (Ondansetron Odt 4 Mg Tab.Rapdis) 4 mg TRANSLINGU Q6H PRN PRN Reason: Nausea and Vomiting Last Admin: 12/23/23 05:34 Dose: 4 mg Documented By: JENNIFER Oxycodone HCl (Oxycodone Hcl Immed Release 5 Mg Tablet) 5 mg PO Q4H PRN PRN Reason: moderate pain Last Admin: 12/23/23 05:13 Dose: 5 mg Documented By: JENNIFER Polyethylene Glycol (Polyethylene Glycol 3350 17 Gm Powd.Pack) 17 gm PO DAILY PRN PRN Reason: Constipation Risperidone (Risperidone 3 Mg Tablet) 3 mg PO BEDTIME [facility] Last Admin: 12/22/23 19:41 Dose: 3 mg Documented By: JENNIFER Sertraline HCl (Sertraline Hcl 100 Mg Tablet) 200 mg PO DAILY [facility] Last Admin: 12/22/23 09:07 Dose: 200 mg Documented By: LEXI Sodium Chloride (0.9 % Sodium Chloride Flush 3 Ml Syringe) [facility] Last Admin: 12/23/23 08:06 Dose: Not Given Documented By: LEXI Non-Admin Reason: No Access Trazodone HCl (Trazodone Hcl 100 Mg Tablet) 400 mg PO BEDTIME [facility] Last Admin: 12/22/23 19:42 Dose: 400 mg Documented By: JENNIFER Labs 12/22/23 05:45 12/22/23 05:45 Assessment and Plan (1) Ileitis: Status: Acute Plan 63F PMH copd, hld, chronic pain, obesity s/p sleeve gastrectomy, gerd, adhdh, mood disorder presented with abd pain terminal ileitis continue rocephin, flagyl advancrf to solids acute hpyoixc respiratory failure wean o2 as tolerated uti rocephin day 4, culture negative copd stable gerd ppi full code dvt prophylaxis - lovenox reason for continued hospitalization: hypoxia Quality Stroke Does the patient have a stroke diagnosis?: No VTE Prior VTE?: No VTE Risk Level:: Medical - moderate - high VTE Device Contraindication: Treatment Not Indicated VTE Drug Contraindication: N/A - Med Ordered
[2023-12-23] MEDS: Buprenorphine/Naloxone 8/2 mg FILM 1 FILM SUBLINGUAL (09:40)
[2023-12-23] MEDS: Nicotine 21 MG PATCH.TD24 TRANSDERMA (09:41)
[2023-12-23] MEDS: Amphetamine Mixed Salts 10 MG TABLET 30 MG PO ×2 (09:41→14:00)
[2023-12-23] MEDS: Gabapentin 400 MG CAPSULE 800 MG PO ×2 (09:41→14:00)
[2023-12-23] MEDS: Atorvastatin Calcium 20 MG TABLET PO (09:41)
[2023-12-23] MEDS: Docusate Sodium 100 MG CAPSULE PO (09:41)
[2023-12-23] MEDS: Sertraline HCL 100 MG TABLET 200 MG PO (09:41)
[2023-12-23] MEDS: polyethylene glycoL 3350 17 GM POWD.PACK PO (09:42)
[2023-12-23] MEDS: Amphetamine Mixed Salts 10 MG TABLET PO (12:28)
[2023-12-23] MEDS: Enoxaparin Sodium 40 MG/0.4 ML SYRINGE SUBCUT (13:59)
[2023-12-23] MEDS: Buprenorphine/Naloxone 8/2 mg FILM 1 FILM BUCCAL (14:01)
--- NOTE | 2023-12-23 16:00 | MHC.CM.PN ---
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
[2023-12-23 19:19] LABS: VBG Base Excess 17.7 mmol/L; VBG HCO3 48 mmol/L (22-26); VBG pCO2 86 mmHg; VBG pH 7.35 (7.32-7.43); VBG pO2 36 mmHg
[2023-12-23 19:23] LABS: Ammonia 39 umol/L (13-55)
--- NOTE | 2023-12-23 19:25 | PC.NURSE ---
pt's came in to visit around 1830 and questioned why pt was acting like she was doped up . vital signs taken, tiger text to Dr. Hernandez who came to see the pt. Labs ordered, pt made high fall risk for safety, will continue to monitor.
[2023-12-23 19:30] LABS: Venous Blood Gas Refer to POC result
[2023-12-23 19:38] LABS: Alanine Aminotransferase 14 U/L (0-31); Albumin Level 3.5 g/dL (3.5-5.0); Alkaline Phosphatase 52 U/L (39-117); Anion Gap 12 (12-20); Aspartate Amino Transferase 18 U/L (5-31); Bilirubin Direct 0.1 mg/dL (0.0-0.5); Bilirubin Total 0.3 mg/dL (0.0-1.0); Blood Urea Nitrogen 7 mg/dL (9-16); Calcium 8.8 mg/dL (8.4-10.2); Carbon Dioxide 40 mmol/L (22-29); Chloride 94 mmol/L (96-108); Creatinine Clr Calc Pharmacy 101.7; Estimated Glomerular Filt Rate > 60; Glucose Random 115 mg/dL (60-115); Potassium 4.3 mmol/L (3.3-5.1); Sodium 142 mmol/L (135-145); Total Protein 6.4 g/dL (6.5-8.0)
[2023-12-23] MEDS: Doxepin HCl 25 MG CAPSULE 50 MG PO (20:09)
[2023-12-23] MEDS: Divalproex Sodium ER 500 MG TAB.ER.24H 1500 MG PO (20:10)
[2023-12-23 20:20] LABS: ABG Base Excess 16.7 mmol/L; ABG HCO3 46 mmol/L (22-26); ABG pCO2 84 mmHg (32-45); ABG pH 7.35 (7.35-7.45); ABG pO2 70 mmHg (83-108)
--- NOTE | 2023-12-23 20:26 | P.EN_ITS ---
Event Note Date of Service: 12/23/23 Event Note: I was signed out by day team regarding altered mentation with pending labs. VBG revealed pCO2 of 86. Obtained ABG with pCO2 84. Discussed with Dr. Adams, marketing financial analyst and patient to be trasnferred to ICU for management of acute metabolic encephalopathy due to hypercapnia with rescue BiPAP. Time Spent With Patient Time: Total time managing care of this patient today ____ minutes.
--- NOTE | 2023-12-23 21:16 | PC.NURSE ---
pt's ABG's were drawn and pt's CO2 is 84. Dr. Mix placed transfer order for pt to go to ICU on Bipap. Report given to MANPREET Orosco in ICU. RN Lehr Cutter Faith aware.
[2023-12-23 21:35] LABS: ABG Refer to POC result
[2023-12-23] MEDS: cefTRIAXone sodium 1 GM in 0.9 % Sodium Chloride 50 ML IV (22:05)
[2023-12-23 22:16] LABS: VBG Base Excess 17.5 mmol/L; VBG HCO3 46 mmol/L (22-26); VBG pCO2 77 mmHg; VBG pH 7.38 (7.32-7.43); VBG pO2 71 mmHg
[2023-12-23 22:21] LABS: Venous Blood Gas Refer to POC result
[2023-12-23] MEDS: metroNIDAZOLE/NS 500 MG/100 ML PIGGYBACK 100 MG IV (22:34)
[2023-12-23] MEDS: Albuterol Sulfate 2.5 MG, Albuterol/Iprat 2.5/0.5MG 3 ML 3 ML INHALE (22:52)
[2023-12-24] VITALS (25 sets, daily range): BP systolic 137–171; BP diastolic 44–86; PULSE 59–77; RESP 12–22; TEMP 36.1–36.3; O2SAT 85–99; BMI 34.1
[2023-12-24] MEDS: Acetaminophen 325 MG TABLET 650 MG PO (01:44)
[2023-12-24] MEDS: ondansetron HCL 4 MG/2 ML VIAL IVPUSH (01:48)
[2023-12-24 02:30] LABS: Amphetamine Screen Urine POSITIVE (Not Detect); Barbiturates, Urine Not Detected (Not Detect); Benzodiazepines Screen Urine Not Detected (Not Detect); Buprenorphine Scr Positive (Not Detect); Cannabinoid Screen Urine Not Detected (Not Detect); Cocaine Screen Urine Not Detected (Not Detect); Fentanyl, urine Not Detected (Not Detect); Methadone Screen, Urine Not Detected (Not Detect); Opiate Screen Urine POSITIVE (Not Detect); Oxycodone Screen Urine Positive (Not Detect); Phencyclidine Screen Urine Not Detected (Not Detect)
[2023-12-24 05:02] LABS: VBG Base Excess 17.8 mmol/L; VBG HCO3 44 mmol/L (22-26); VBG pCO2 61 mmHg; VBG pH 7.47 (7.32-7.43); VBG pO2 72 mmHg
[2023-12-24 05:18] LABS: MANUAL DIFF FLAG NO
[2023-12-24 05:33] LABS: Basophils Percent Auto 0.3 % (0-2); Eosinophils Percent Auto 0.7 % (0-4); Hematocrit 40.8 % (37.0-47.0); Hemoglobin 12.8 g/dl (12.0-16.0); Imm Gran Abs Auto 0.02 X10*3/uL (0.00-0.03); Imm Gran Pct Auto 0.3 % (0.0-0.4); Lymphocytes Absolute Auto 1.4 X10*3/uL (1.2-4.9); Lymphocytes Percent Auto 23.6 % (20-40); Mean Corpuscular HGB Conc 31.4 g/dl (31.0-35.0); Mean Corpuscular Hemoglobin 29.3 pg (27.0-33.0); Mean Corpuscular Volume 93.4 fL (80.0-98.0); Mean Platelet Volume 9.8 fL (9.4-12.3); Monocytes Absolute Auto 0.3 X10*3/uL (0.1-1.2); Monocytes Percent Auto 5.9 % (2-11); Neutrophils Percent Auto 69.2 % (45-73); Platelet Count 143 X10*3/uL (160-400); Red Blood Count 4.37 X10*6/uL (4.20-5.50); Red Cell Distribution Width 12.7 % (11.0-16.0); White Blood Count 5.8 X10*3/uL (4.8-10.8)
[2023-12-24 05:35] LABS: Albumin Level 3.6 g/dL (3.5-5.0)
[2023-12-24 05:39] LABS: Anion Gap 16 (12-20); Blood Urea Nitrogen 6 mg/dL (9-16); Calcium 8.6 mg/dL (8.4-10.2); Carbon Dioxide 35 mmol/L (22-29); Chloride 93 mmol/L (96-108); Creatinine Clr Calc Pharmacy 107.1; Estimated Glomerular Filt Rate > 60; Glucose Random 132 mg/dL (60-115); Magnesium 2.1 mg/dL (1.6-2.6); Phosphorus 3.2 mg/dL (2.7-4.5); Sodium 140 mmol/L (135-145)
[2023-12-24] MEDS: metroNIDAZOLE/NS 500 MG/100 ML PIGGYBACK 100 MG IV ×3 (05:47→22:37)
[2023-12-24 05:57] LABS: Venous Blood Gas Refer to POC result
[2023-12-24] MEDS: Albuterol/Iprat 2.5/0.5MG 3 ML AMPUL.NEB INHALE ×4 (07:52→19:33)
--- NOTE | 2023-12-24 08:17 | P.PNCC_ITS ---
Subjective Subjective Date of Service: 12/24/23 Interval History: admitted ICU for hypercarbic respiratory failure w/ quick improvement on BiPAP; otherwise no significant overnight events Critical Care Time (minutes): 60 Physical Exam 2 Vital Signs: Vital Signs: Last Vital Signs Temp 97.4 F 12/24/23 04:00 Pulse 66 12/24/23 08:00 Resp 17 12/24/23 08:00 BP 155/81 H 12/24/23 08:00 Pulse Ox 97 12/24/23 08:00 O2 Del Method BiPAP 12/24/23 08:00 O2 Flow Rate 2 12/23/23 18:52 FiO2 28 12/24/23 08:00 BMI result Body Mass Index 34.1 Objective Data Labs 12/24/23 04:42 12/24/23 04:42 Labs: Laboratory Results - last 24 hr 12/23/23 12/23/23 12/23/23 19:07 19:08 19:15 WBC RBC Hgb Hct MCV MCH MCHC RDW Plt Count MPV Immature Gran % (Auto) Neut % (Auto) Lymph % (Auto) [place] % (Auto) Eos % (Auto) Baso % (Auto) Lymph # (Auto) [place] # (Auto) Eos # (Auto) Baso # (Auto) Abs Immat Gran (auto) Absolute Neuts (auto) Absolute Nucleated RBC Nucleated RBC % (auto) O2 Saturation ABG pH at Pt Temp ABG pCO2 at Pt Temp ABG pO2 at Pt Temp ABG HCO3 ABG Base Excess (Actual) VBG pH 7.35 VBG pCO2 86 VBG pO2 36 VBG HCO3 48 H VBG O2 Saturation 67.0 VBG Base Excess 17.7 Sodium 142 Potassium 4.3 Chloride 94 L Carbon Dioxide 40 H* Anion Gap 12 BUN 7 L Creatinine 0.60 Estim Creat Clear Calc 101.7 Estimated GFR > 60 Random Glucose 115 Calcium 8.8 Phosphorus Magnesium Total Bilirubin 0.3 Direct Bilirubin 0.1 AST 18 ALT 14 Alkaline Phosphatase 52 Ammonia 39 Total Protein 6.4 L Albumin 3.5 Urine Opiates Screen Ur Buprenorphine Scrn Ur Oxycodone Screen Urine Methadone Screen Urine Fentanyl Screen Ur Barbiturates Screen Ur Phencyclidine Scrn Ur Amphetamines Screen U Benzodiazepines Scrn Urine Cocaine Screen U Marijuana (THC) Screen 09/02/24 09/02/24 09/03/24 20:10 22:11 01:57 WBC RBC Hgb Hct MCV MCH MCHC RDW Plt Count MPV Immature Gran % (Auto) Neut % (Auto) Lymph % (Auto) [place] % (Auto) Eos % (Auto) Baso % (Auto) Lymph # (Auto) [place] # (Auto) Eos # (Auto) Baso # (Auto) Abs Immat Gran (auto) Absolute Neuts (auto) Absolute Nucleated RBC Nucleated RBC % (auto) O2 Saturation 94.0 ABG pH at Pt Temp 7.35 ABG pCO2 at Pt Temp 84 H* ABG pO2 at Pt Temp 70 L ABG HCO3 46 H ABG Base Excess (Actual) 16.7 VBG pH 7.38 VBG pCO2 77 VBG pO2 71 VBG HCO3 46 H VBG O2 Saturation 97.0 VBG Base Excess 17.5 Sodium Potassium Chloride Carbon Dioxide Anion Gap BUN Creatinine Estim Creat Clear Calc Estimated GFR Random Glucose Calcium Phosphorus Magnesium Total Bilirubin Direct Bilirubin AST ALT Alkaline Phosphatase Ammonia Total Protein Albumin Urine Opiates Screen POSITIVE H Ur Buprenorphine Scrn Positive H Ur Oxycodone Screen Positive H Urine Methadone Screen Not Detected Urine Fentanyl Screen Not Detected Ur Barbiturates Screen Not Detected Ur Phencyclidine Scrn Not Detected Ur Amphetamines Screen POSITIVE H U Benzodiazepines Scrn Not Detected Urine Cocaine Screen Not Detected U Marijuana (THC) Screen Not Detected 12/24/23 12/24/23 04:42 04:51 WBC 5.8 RBC 4.37 Hgb 12.8 Hct 40.8 MCV 93.4 MCH 29.3 MCHC 31.4 RDW 12.7 Plt Count 143 L MPV 9.8 Immature Gran % (Auto) 0.3 Neut % (Auto) 69.2 Lymph % (Auto) 23.6 [place] % (Auto) 5.9 Eos % (Auto) 0.7 Baso % (Auto) 0.3 Lymph # (Auto) 1.4 [place] # (Auto) 0.3 Eos # (Auto) 0.0 Baso # (Auto) 0.0 Abs Immat Gran (auto) 0.02 Absolute Neuts (auto) 4.0 Absolute Nucleated RBC 0.000 Nucleated RBC % (auto) 0.0 O2 Saturation ABG pH at Pt Temp ABG pCO2 at Pt Temp ABG pO2 at Pt Temp ABG HCO3 ABG Base Excess (Actual) VBG pH 7.47 H VBG pCO2 61 VBG pO2 72 VBG HCO3 44 H VBG O2 Saturation 97.0 VBG Base Excess 17.8 Sodium 140 Potassium 4.0 Chloride 93 L Carbon Dioxide 35 H Anion Gap 16 BUN 6 L Creatinine 0.57 Estim Creat Clear Calc 107.1 Estimated GFR > 60 Random Glucose 132 H Calcium 8.6 Phosphorus 3.2 Magnesium 2.1 Total Bilirubin Direct Bilirubin AST ALT Alkaline Phosphatase Ammonia Total Protein Albumin 3.6 Urine Opiates Screen Ur Buprenorphine Scrn Ur Oxycodone Screen Urine Methadone Screen Urine Fentanyl Screen Ur Barbiturates Screen Ur Phencyclidine Scrn Ur Amphetamines Screen U Benzodiazepines Scrn Urine Cocaine Screen U Marijuana (THC) Screen Microbiology Microbiology Results: Microbiology 12/20/23 02:42 Urine clean catch - Clean Catch Midstream Urine Culture - Final Progress Note: A&P Assessment and plan (1) Respiratory failure with hypoxia and hypercapnia: Status: Acute (2) COPD (chronic obstructive pulmonary disease): Status: Acute (3) Obstructive sleep apnea: Status: Acute (4) Terminal ileitis: Status: Acute Plan Patient is a 63 Y F w/ multiple psychiatric co-morbidities, metabolic syndrome, obesity, and COPD c/b chronic mixed respiratory failure, presenting initially on 12/19 w/ abdominal pain, found to have terminal ileitis, admitted medicine; on 12/22, patient developed acute on chronic hypercarbic respiratory failure, admitted ICU on BiPAP N: encephalopathy, likely multifactorial, d/t hypercarbic respiratory failure, as well as significant polypharmacy CV: no acute issues R: COPD, c/b mixed respiratory failure; suspect needs non-invasive when sleeping at night and naps; follow-up sleep study GI: terminal ileitis, on ceftriaxone, metronidazole; regular diet : no acute issues H: no acute issues; chemical DVT prophylaxis ID: terminal ileitis, as described above E: diabetes melitus, to monitor hypo-/hyper-glycemia P: extensive, on multiple home medications; c/f polypharmacy contributing to encephalopathy Quality Stroke Does the patient have a stroke diagnosis?: No VTE Prior VTE?: No VTE Risk Level:: Medical - moderate - high VTE Device Contraindication: N/A - Device Ordered VTE Drug Contraindication: N/A - Med Ordered
[2023-12-24] MEDS: Atorvastatin Calcium 20 MG TABLET PO (10:10)
[2023-12-24] MEDS: 0.9 % Sodium Chloride Flush 3 ML SYRINGE IVFLUSH (10:10)
[2023-12-24] MEDS: Nicotine Polacrilex 2 MG GUM 4 MG BUCCAL (10:11)
[2023-12-24] MEDS: Nicotine 21 MG PATCH.TD24 TRANSDERMA (10:12)
[2023-12-24 11:07] LABS: Glucose, Whole Blood 125 mg/dL (60-115)
[2023-12-24 11:48] LABS: Venous Blood Gas Refer to POC result
[2023-12-24 11:48] LABS: VBG Base Excess 21.7 mmol/L; VBG HCO3 48 mmol/L (22-26); VBG pCO2 60 mmHg; VBG pH 7.51 (7.32-7.43); VBG pO2 197 mmHg
[2023-12-24 11:49] LABS: Glucose, Whole Blood 116 mg/dL (60-115)
[2023-12-24] MEDS: Amphetamine Mixed Salts 10 MG TABLET 30 MG PO (14:47)
[2023-12-24] MEDS: Enoxaparin Sodium 40 MG/0.4 ML SYRINGE SUBCUT (14:47)
[2023-12-24 16:42] LABS: Glucose, Whole Blood 114 mg/dL (60-115)
[2023-12-24 21:32] LABS: Glucose, Whole Blood 102 mg/dL (60-115)
[2023-12-24] MEDS: cefTRIAXone sodium 1 GM in 0.9 % Sodium Chloride 50 ML IV (22:01)
--- NOTE | 2023-12-24 22:40 | PC.RT ---
Pt placed on overnight sleep study @ [id number]. Pt is currently on 2LNC
[2023-12-25] VITALS (9 sets, daily range): BP systolic 147–171; BP diastolic 71–88; PULSE 64–82; RESP 18–20; TEMP 36.5–37; O2SAT 89–96; BMI 33.1
[2023-12-25] MEDS: Acetaminophen 325 MG TABLET 650 MG PO (03:28)
[2023-12-25 06:03] LABS: MANUAL DIFF FLAG NO
[2023-12-25] MEDS: metroNIDAZOLE/NS 500 MG/100 ML PIGGYBACK 100 MG IV ×3 (06:09→22:58)
[2023-12-25] MEDS: Omeprazole 20 MG CAPSULE.DR PO (06:11)
--- NOTE | 2023-12-25 06:19 | PC.RT ---
Sleep study completed at 0600, Rn stated patient was up frequently to commode became entangled with wires at one time, RT paged to assess sleep equipment to make some minor adjustments, pt continued sleep study. RN did state that patient was awake frequently.
[2023-12-25 06:22] LABS: Basophils Percent Auto 0.4 % (0-2); Eosinophils Absolute Auto 0.1 X10*3/uL (0.0-0.4); Eosinophils Percent Auto 0.8 % (0-4); Hematocrit 45.1 % (37.0-47.0); Hemoglobin 14.6 g/dl (12.0-16.0); Imm Gran Abs Auto 0.03 X10*3/uL (0.00-0.03); Imm Gran Pct Auto 0.4 % (0.0-0.4); Lymphocytes Absolute Auto 1.4 X10*3/uL (1.2-4.9); Lymphocytes Percent Auto 19.8 % (20-40); Mean Corpuscular HGB Conc 32.4 g/dl (31.0-35.0); Mean Corpuscular Volume 89.7 fL (80.0-98.0); Mean Platelet Volume 9.5 fL (9.4-12.3); Monocytes Absolute Auto 0.6 X10*3/uL (0.1-1.2); Monocytes Percent Auto 8.3 % (2-11); Neutrophils Absolute Auto 5.1 x10*3/uL (2.0-8.3); Neutrophils Percent Auto 70.3 % (45-73); Platelet Count 163 X10*3/uL (160-400); Red Blood Count 5.03 X10*6/uL (4.20-5.50); Red Cell Distribution Width 12.7 % (11.0-16.0); White Blood Count 7.2 X10*3/uL (4.8-10.8)
[2023-12-25 06:41] LABS: Anion Gap 16 (12-20); Blood Urea Nitrogen 9 mg/dL (9-16); Calcium 9.7 mg/dL (8.4-10.2); Carbon Dioxide 35 mmol/L (22-29); Chloride 91 mmol/L (96-108); Creatinine Clr Calc Pharmacy 105.3; Estimated Glomerular Filt Rate > 60; Glucose Random 112 mg/dL (60-115); Magnesium 2.1 mg/dL (1.6-2.6); Phosphorus 2.9 mg/dL (2.7-4.5); Potassium 3.6 mmol/L (3.3-5.1); Sodium 138 mmol/L (135-145)
[2023-12-25 07:26] LABS: Glucose, Whole Blood 119 mg/dL (60-115)
[2023-12-25] MEDS: Albuterol/Iprat 2.5/0.5MG 3 ML AMPUL.NEB INHALE (07:32)
--- NOTE | 2023-12-25 07:46 | P.CDIM_ITS ---
PROVIDER RESPONSE TEXT: To clarify, the appropriate diagnosis supported by the clinical indicators: Toxic metabolic QUERY TEXT: PHYSICIAN'S DOCUMENTATION REQUEST Date of Query: 12/24/2023 08:42 AM EDT Patient Name: Justa Larsen Admit Date: 12/20/2023 Dear Nahomy Adams MD, A review of the medical record indicates additional documentation may be needed. Please review below and update the documentation accordingly. Clinical Indicators: ICU progress note 12/22 - encephalopathy, likely multifactorial, d/t hypercarbic respiratory failure as well as significant polypharmacy. Based on the above, please further specify, in the Progress Notes, the known or suspected type of the documented encephalopathy: Metabolic Toxic Toxic metabolic Other (explain) Clinically unable to determine (explain) Thank you, Dang Maxwell, CCS, CDIS Use of terms such as suspected, likely, concern for, or probable (associated with a specific diagnosi s that is being evaluated, monitored, or treated as if it exists) are acceptable and can be coded in the inpatient se tting, when documented at the time of discharge. Please use your independent medical judgment in providing your response. THIS QUERY IS PART OF THE PERMANENT MEDICAL RECORD
--- NOTE | 2023-12-25 09:23 | MHC.CM.PN ---
Per MD, Patient is not yet medically cleared for dc (may need another sleep study);home/resume EPITAXIAL REACTOR TECHNICIAN is the goal and CM will continue to follow.
[2023-12-25] MEDS: Amphetamine Mixed Salts 10 MG TABLET 30 MG PO ×2 (09:25→16:13)
[2023-12-25] MEDS: Nicotine Polacrilex 2 MG GUM 4 MG BUCCAL (09:25)
[2023-12-25] MEDS: Atorvastatin Calcium 20 MG TABLET PO (09:25)
[2023-12-25] MEDS: Sertraline HCL 100 MG TABLET 200 MG PO (09:25)
[2023-12-25] MEDS: 0.9 % Sodium Chloride Flush 3 ML SYRINGE IVFLUSH ×3 (09:26→16:16)
[2023-12-25] MEDS: Buprenorphine/Naloxone 8/2 mg FILM 1 FILM SUBLINGUAL (09:26)
[2023-12-25] MEDS: Nicotine 21 MG PATCH.TD24 TRANSDERMA (09:44)
[2023-12-25 11:20] LABS: Glucose, Whole Blood 115 mg/dL (60-115)
--- NOTE | 2023-12-25 12:02 | P.PNIM_ITS ---
Subjective Subjective Date of Service: 12/25/23 Interval History: Seen and evaluated this morning More alert but easily confused Denies pain , tolerating PO Sleep study done overnight Review of Systems Review of Systems: Yes all other systems are reviewed and are negative Physical Exam 2 Vital Signs: Vital Signs: Last Vital Signs Temp 97.8 F 12/25/23 08:00 Pulse 64 12/25/23 08:00 Resp 18 12/25/23 08:00 BP 165/71 H 12/25/23 08:00 Pulse Ox 91 L 12/25/23 08:00 O2 Del Method Nasal Cannula 12/25/23 08:00 O2 Flow Rate 2 12/25/23 08:00 FiO2 30 12/24/23 16:00 BMI result Body Mass Index 33.1 Const: Other: Constitutional : Awake, interactive, not in distress Neck : Normal inspection, Supple Cardiovascular : RRR, no JVP, no lower extremity edema Respiratory : good bilateral air entry, no crackles, wheezes or rhonchi Gastrointestinal: soft, lax, Normal bowel sounds, Non tender Skin : Warm, Dry Neurological : Alert & oriented to self mainly and place but gets easily confused, No focal deficit Objective Data Active Medications Acetaminophen (Acetaminophen 325 Mg Tablet) 650 mg PO Q6H PRN PRN Reason: Pain, Mild (Pain Scale 1-3), fever or headache Last Admin: 12/25/23 03:28 Dose: 650 mg Documented By: POPEYE Albuterol/Ipratropium (Albuterol/Iprat 2.5/0.5mg 3 Ml Ampul.Neb) 3 ml INHALE RQ4H WHILE AWAKE [facility] Last Admin: 12/25/23 11:12 Dose: Not Given Documented By: CARY Non-Admin Reason: Patient Refused Amoxicillin/Clavulanate Potassium (Amoxicillin/Potassium Clav 875 Mg Tablet) 875 mg PO Q12H [facility] Last Admin: 12/23/23 17:25 Dose: 875 mg Documented By: JENNIFER Amphetamine/Dextroamphetamine (Amphetamine Mixed Salts 10 Mg Tablet) 10 mg PO DAILY@1200 [facility] Last Admin: 12/23/23 12:28 Dose: 10 mg Documented By: LEXI Amphetamine/Dextroamphetamine (Amphetamine Mixed Salts 10 Mg Tablet) 30 mg PO BID@0900,1500 [facility] Last Admin: 12/25/23 09:25 Dose: 30 mg Documented By: RICHARD Atorvastatin Calcium (Atorvastatin Calcium 20 Mg Tablet) 20 mg PO DAILY [facility] Last Admin: 12/25/23 09:25 Dose: 20 mg Documented By: RICHARD Buprenorphine/Naloxone (Buprenorphine/Naloxone 8/2 Mg Film) 1 film SUBLINGUAL DAILY [facility] Last Admin: 12/25/23 09:26 Dose: 1 film Documented By: RICHARD Buprenorphine/Naloxone (Buprenorphine/Naloxone 8/2 Mg Film) 1 film BUCCAL DAILY@1400 [facility] Last Admin: 12/23/23 14:01 Dose: 1 film Documented By: LEXI Clotrimazole (Clotrimazole 1 % Cream 15 Gm Tube) 1 appl TOPICAL BID [facility]; Protocol Last Admin: 12/25/23 09:30 Dose: Not Given Documented By: RICHARD Non-Admin Reason: Patient Refused Enoxaparin Sodium (Enoxaparin Sodium 40 Mg/0.4 Ml Syringe) 40 mg SUBCUT Q24H [facility] Last Admin: 12/24/23 14:47 Dose: 40 mg Documented By: ZEB Ceftriaxone Sodium 1 gm/ (Sodium Chloride) 50 mls @ 100 mls/hr IV Q24H [facility] Last Infusion: 12/24/23 22:31 Dose: Infused Documented By: POPEYE Metronidazole (Flagyl) 500 mg in 100 mls @ 100 mls/hr IV Q8H [facility] Last Infusion: 12/25/23 09:29 Dose: Infused Documented By: RICHARD Nicotine (Nicotine 21 Mg Patch.Td24) 21 mg TRANSDERMA DAILY [facility] Last Admin: 12/25/23 09:44 Dose: 21 mg Documented By: RICHARD Nicotine Polacrilex (Nicotine Polacrilex 2 Mg Gum) 4 mg BUCCAL BID [facility] Last Admin: 12/25/23 09:25 Dose: 4 mg Documented By: RICHARD Nicotine Polacrilex (Nicotine Polacrilex 2 Mg Gum) 2 mg BUCCAL Q1H PRN PRN Reason: craving Last Admin: 12/22/23 16:33 Dose: 2 mg Documented By: JENNIFER Non-Formulary Medication (Linaclotide [Linzess]) 290 mcg PO DAILY [facility] Omeprazole (Omeprazole 20 Mg Capsule.) 20 mg PO DAILY@0630 [facility] Last Admin: 12/25/23 06:11 Dose: 20 mg Documented By: POPEYE Ondansetron HCl (Ondansetron Hcl 4 Mg/2 Ml Vial) 4 mg IVPUSH Q8H PRN PRN Reason: Nausea and Vomiting Last Admin: 12/24/23 01:48 Dose: 4 mg Documented By: ASHLEY Risperidone (Risperidone 3 Mg Tablet) 3 mg PO BEDTIME [facility] Last Admin: 12/22/23 19:41 Dose: 3 mg Documented By: JENNIFER Sertraline HCl (Sertraline Hcl 100 Mg Tablet) 200 mg PO DAILY [facility] Last Admin: 12/25/23 09:25 Dose: 200 mg Documented By: RICHARD Sodium Chloride (0.9 % Sodium Chloride Flush 3 Ml Syringe) 3 ml IVFLUSH QSHIFT [facility] Last Admin: 12/25/23 09:26 Dose: 3 ml Documented By: RICHARD Labs 12/25/23 05:51 12/25/23 05:51 Labs: Laboratory Results - last 24 hr 12/24/23 12/24/23 12/25/23 16:35 21:26 05:51 MCV 89.7 MCH 29.0 MCHC 32.4 RDW 12.7 Plt Count 163 MPV 9.5 Immature Gran % (Auto) 0.4 Neut % (Auto) 70.3 Lymph % (Auto) 19.8 L [place] % (Auto) 8.3 Eos % (Auto) 0.8 Baso % (Auto) 0.4 Lymph # (Auto) 1.4 [place] # (Auto) 0.6 Eos # (Auto) 0.1 Baso # (Auto) 0.0 Abs Immat Gran (auto) 0.03 Absolute Neuts (auto) 5.1 Absolute Nucleated RBC 0.000 Nucleated RBC % (auto) 0.0 Anion Gap 16 Estim Creat Clear Calc 105.3 Estimated GFR > 60 POC Glucose 114 102 Random Glucose 112 Calcium 9.7 D Phosphorus 2.9 Magnesium 2.1 12/25/23 12/25/23 07:19 11:10 MCV MCH MCHC RDW Plt Count MPV Immature Gran % (Auto) Neut % (Auto) Lymph % (Auto) [place] % (Auto) Eos % (Auto) Baso % (Auto) Lymph # (Auto) [place] # (Auto) Eos # (Auto) Baso # (Auto) Abs Immat Gran (auto) Absolute Neuts (auto) Absolute Nucleated RBC Nucleated RBC % (auto) Anion Gap Estim Creat Clear Calc Estimated GFR POC Glucose 119 H 115 Random Glucose Calcium Phosphorus Magnesium Assessment and Plan (1) Terminal ileitis: Status: Acute (2) Obstructive sleep apnea: Status: Acute (3) Respiratory failure with hypoxia and hypercapnia: Status: Acute (4) Toxic metabolic encephalopathy: Status: Acute Plan 63F PMH copd, hld, chronic pain, obesity s/p sleeve gastrectomy, gerd, adhdh, mood disorder presented with abd pain acute Toxic metabolic encephalopathy, improving Multifactorial, Polypharmacy, Hypercapnia Improved with CPAP Avoid medications that might affect her mentation; restart Depakote and Gabapentin terminal ileitis Improving, tolerating diet Continue Rocephin, flagyl and hold Amoxic\Clav acute hpyoixc respiratory failure wean o2 as tolerated Had sleep study overnight; pending review use CPAP at night uti culture negative, finished 5 days Abx. copd stable gerd ppi full code dvt prophylaxis - lovenox reason for continued hospitalization: Pending resolution of encephalopathy pending clinical improvement and weaning off O2 Quality Stroke Does the patient have a stroke diagnosis?: No VTE Prior VTE?: No VTE Risk Level:: Medical - moderate - high VTE Device Contraindication: N/A - Device Ordered VTE Drug Contraindication: N/A - Med Ordered
[2023-12-25] MEDS: Amphetamine Mixed Salts 10 MG TABLET PO (13:21)
[2023-12-25] MEDS: Enoxaparin Sodium 40 MG/0.4 ML SYRINGE SUBCUT (13:21)
[2023-12-25 16:16] LABS: Glucose, Whole Blood 148 mg/dL (60-115)
[2023-12-25 20:29] LABS: Glucose, Whole Blood 99 mg/dL (60-115)
[2023-12-25] MEDS: Divalproex Sodium ER 500 MG TAB.ER.24H 1000 MG PO (21:25)
[2023-12-25] MEDS: cefTRIAXone sodium 1 GM in 0.9 % Sodium Chloride 50 ML IV (21:25)
[2023-12-26 03:07] VITALS: BP 159/78; PULSE 66; RESP 18; TEMP 36.6; O2SAT 98
[2023-12-26 06:00] VITALS: BMI 33.4
[2023-12-26] MEDS: metroNIDAZOLE/NS 500 MG/100 ML PIGGYBACK 100 MG IV (06:35)
[2023-12-26] MEDS: Omeprazole 20 MG CAPSULE.DR PO (06:35)
[2023-12-26 07:33] LABS: MANUAL DIFF FLAG NO
[2023-12-26 07:50] LABS: Glucose, Whole Blood 112 mg/dL (60-115)
[2023-12-26 07:53] LABS: Basophils Percent Auto 0.4 % (0-2); Eosinophils Absolute Auto 0.1 X10*3/uL (0.0-0.4); Eosinophils Percent Auto 0.8 % (0-4); Hematocrit 46.1 % (37.0-47.0); Hemoglobin 15.2 g/dl (12.0-16.0); Imm Gran Abs Auto 0.03 X10*3/uL (0.00-0.03); Imm Gran Pct Auto 0.4 % (0.0-0.4); Lymphocytes Absolute Auto 2.1 X10*3/uL (1.2-4.9); Mean Corpuscular Hemoglobin 29.2 pg (27.0-33.0); Mean Corpuscular Volume 88.5 fL (80.0-98.0); Mean Platelet Volume 9.8 fL (9.4-12.3); Monocytes Absolute Auto 0.7 X10*3/uL (0.1-1.2); Monocytes Percent Auto 9.9 % (2-11); Neutrophils Absolute Auto 4.4 x10*3/uL (2.0-8.3); Neutrophils Percent Auto 60.5 % (45-73); Platelet Count 180 X10*3/uL (160-400); Red Blood Count 5.21 X10*6/uL (4.20-5.50); Red Cell Distribution Width 13.2 % (11.0-16.0); White Blood Count 7.4 X10*3/uL (4.8-10.8)
[2023-12-26 07:59] LABS: Anion Gap 12 (12-20); Blood Urea Nitrogen 18 mg/dL (9-16); Calcium 9.6 mg/dL (8.4-10.2); Carbon Dioxide 38 mmol/L (22-29); Chloride 91 mmol/L (96-108); Creatinine Clr Calc Pharmacy 88.3; Estimated Glomerular Filt Rate > 60; Glucose Random 106 mg/dL (60-115); Magnesium 2.2 mg/dL (1.6-2.6); Phosphorus 3.3 mg/dL (2.7-4.5); Potassium 3.4 mmol/L (3.3-5.1); Sodium 138 mmol/L (135-145)
[2023-12-26 08:00] VITALS: BP 158/80; PULSE 75; RESP 18; TEMP 36.5; O2SAT 97
[2023-12-26] MEDS: Amphetamine Mixed Salts 10 MG TABLET 30 MG PO ×2 (09:17→15:05)
[2023-12-26] MEDS: Buprenorphine/Naloxone 8/2 mg FILM 1 FILM SUBLINGUAL (09:17)
[2023-12-26] MEDS: Atorvastatin Calcium 20 MG TABLET PO (09:17)
[2023-12-26] MEDS: 0.9 % Sodium Chloride Flush 3 ML SYRINGE IVFLUSH ×3 (09:18→15:07)
[2023-12-26] MEDS: Nicotine 21 MG PATCH.TD24 TRANSDERMA (09:18)
[2023-12-26] MEDS: Sertraline HCL 100 MG TABLET 200 MG PO (09:19)
--- NOTE | 2023-12-26 10:22 | MHC.CM.PN ---
Per ROUNDS discussion, Patient is not yet medically cleared for dc (needs Psych Eval r/t multiple Psych meds, PT eval to assist with disposition, and sleep study results are pending); CM will follow.
[2023-12-26] MEDS: Acetaminophen 325 MG TABLET 650 MG PO ×2 (10:46→20:23)
[2023-12-26 11:17] LABS: Glucose, Whole Blood 142 mg/dL (60-115)
[2023-12-26 12:00] VITALS: BP 147/75; PULSE 81; RESP 18; TEMP 36.2; O2SAT 98
[2023-12-26] MEDS: Enoxaparin Sodium 40 MG/0.4 ML SYRINGE SUBCUT (12:49)
[2023-12-26] MEDS: Amphetamine Mixed Salts 10 MG TABLET PO (12:49)
--- NOTE | 2023-12-26 14:59 | P.PNIM_ITS ---
Subjective Subjective Date of Service: 12/26/23 Interval History: Seen and evaluated this morning More alert and interactive, less confused Denies abdominal pain , tolerating PO refuses CPAP Review of Systems Review of Systems: Yes all other systems are reviewed and are negative Physical Exam 2 Vital Signs: Vital Signs: Last Vital Signs Temp 97.1 F 12/26/23 12:00 Pulse 81 12/26/23 12:00 Resp 18 12/26/23 12:00 BP 147/75 H 12/26/23 12:00 Pulse Ox 98 12/26/23 12:00 O2 Del Method Room Air 12/26/23 12:00 O2 Flow Rate 2 12/26/23 03:07 FiO2 30 12/24/23 16:00 BMI result Body Mass Index 33.4 Const: Other: Constitutional : Awake, interactive, not in distress Neck : Normal inspection, Supple Cardiovascular : RRR, no JVP, no lower extremity edema Respiratory : good bilateral air entry, no crackles, wheezes or rhonchi Gastrointestinal: soft, lax, Normal bowel sounds, Non tender Skin : Warm, Dry Neurological : Alert & oriented to self and place, No focal deficit Objective Data Active Medications Acetaminophen (Acetaminophen 325 Mg Tablet) 650 mg PO Q6H PRN PRN Reason: Pain, Mild (Pain Scale 1-3), fever or headache Last Admin: 12/26/23 10:46 Dose: 650 mg Documented By: RICHARD Albuterol/Ipratropium (Albuterol/Iprat 2.5/0.5mg 3 Ml Ampul.Neb) 3 ml INHALE RQ4H WHILE AWAKE [facility] Last Admin: 12/26/23 11:00 Dose: Not Given Documented By: CARY Non-Admin Reason: Patient Refused Amoxicillin/Clavulanate Potassium (Amoxicillin/Potassium Clav 875 Mg Tablet) 875 mg PO Q12H [facility] Last Admin: 12/23/23 17:25 Dose: 875 mg Documented By: JENNIFER Amphetamine/Dextroamphetamine (Amphetamine Mixed Salts 10 Mg Tablet) 10 mg PO DAILY@1200 [facility] Last Admin: 12/26/23 12:49 Dose: 10 mg Documented By: RICHARD Amphetamine/Dextroamphetamine (Amphetamine Mixed Salts 10 Mg Tablet) 30 mg PO BID@0900,1500 [facility] Last Admin: 12/26/23 09:17 Dose: 30 mg Documented By: RICHARD Atorvastatin Calcium (Atorvastatin Calcium 20 Mg Tablet) 20 mg PO DAILY [facility] Last Admin: 12/26/23 09:17 Dose: 20 mg Documented By: RICHARD Buprenorphine/Naloxone (Buprenorphine/Naloxone 8/2 Mg Film) 1 film SUBLINGUAL DAILY [facility] Last Admin: 12/26/23 09:17 Dose: 1 film Documented By: RICHARD Buprenorphine/Naloxone (Buprenorphine/Naloxone 8/2 Mg Film) 1 film BUCCAL DAILY@1400 [facility] Last Admin: 12/23/23 14:01 Dose: 1 film Documented By: LEXI Clotrimazole (Clotrimazole 1 % Cream 15 Gm Tube) 1 appl TOPICAL BID [facility]; Protocol Last Admin: 12/26/23 09:21 Dose: Not Given Documented By: RICHARD Non-Admin Reason: Patient Refused Divalproex Sodium (Divalproex Sodium Er 500 Mg Tab.Er.24h) 1,000 mg PO BEDTIME [facility] Last Admin: 12/25/23 21:25 Dose: 500 mg Documented By: POPEYE Comments: pt took 1 pill then stated she doesnt want anymore pf her meds Enoxaparin Sodium (Enoxaparin Sodium 40 Mg/0.4 Ml Syringe) 40 mg SUBCUT Q24H [facility] Last Admin: 12/26/23 12:49 Dose: 40 mg Documented By: RICHARD Ceftriaxone Sodium 1 gm/ (Sodium Chloride) 50 mls @ 100 mls/hr IV Q24H [facility] Last Infusion: 12/25/23 21:55 Dose: Infused Documented By: POPEYE Metronidazole (Metronidazole 500 Mg Tablet) 500 mg PO Q8H [facility] Nicotine (Nicotine 21 Mg Patch.Td24) 21 mg TRANSDERMA DAILY [facility] Last Admin: 12/26/23 09:18 Dose: 21 mg Documented By: RICHARD Nicotine Polacrilex (Nicotine Polacrilex 2 Mg Gum) 4 mg BUCCAL BID [facility] Last Admin: 12/26/23 11:09 Dose: Not Given Documented By: RICHARD Non-Admin Reason: Patient Refused Nicotine Polacrilex (Nicotine Polacrilex 2 Mg Gum) 2 mg BUCCAL Q1H PRN PRN Reason: craving Last Admin: 12/22/23 16:33 Dose: 2 mg Documented By: JENNIFER Omeprazole (Omeprazole 20 Mg Capsule.) 20 mg PO DAILY@0630 [facility] Last Admin: 12/26/23 06:35 Dose: 20 mg Documented By: POPEYE Ondansetron HCl (Ondansetron Hcl 4 Mg/2 Ml Vial) 4 mg IVPUSH Q8H PRN PRN Reason: Nausea and Vomiting Last Admin: 12/24/23 01:48 Dose: 4 mg Documented By: ASHLEY Risperidone (Risperidone 3 Mg Tablet) 3 mg PO BEDTIME [facility] Last Admin: 12/25/23 21:33 Dose: Not Given Documented By: POPEYE Non-Admin Reason: Patient Refused Sertraline HCl (Sertraline Hcl 100 Mg Tablet) 200 mg PO DAILY [facility] Last Admin: 12/26/23 09:19 Dose: 200 mg Documented By: RICHARD Sodium Chloride (0.9 % Sodium Chloride Flush 3 Ml Syringe) 3 ml IVFLUSH QSHIFT [facility] Last Admin: 12/26/23 09:18 Dose: 3 ml Documented By: RICHARD Labs 12/26/23 06:09 12/26/23 06:09 Labs: Laboratory Results - last 24 hr 12/25/23 12/25/23 12/26/23 16:10 20:20 06:09 MCV 88.5 MCH 29.2 MCHC 33.0 RDW 13.2 Plt Count 180 MPV 9.8 Immature Gran % (Auto) 0.4 Neut % (Auto) 60.5 Lymph % (Auto) 28.0 [place] % (Auto) 9.9 Eos % (Auto) 0.8 Baso % (Auto) 0.4 Lymph # (Auto) 2.1 [place] # (Auto) 0.7 Eos # (Auto) 0.1 Baso # (Auto) 0.0 Abs Immat Gran (auto) 0.03 Absolute Neuts (auto) 4.4 Absolute Nucleated RBC 0.000 Nucleated RBC % (auto) 0.0 Anion Gap 12 Estim Creat Clear Calc 88.3 Estimated GFR > 60 POC Glucose 148 H 99 Random Glucose 106 Calcium 9.6 Phosphorus 3.3 Magnesium 2.2 12/26/23 12/26/23 07:46 11:13 MCV MCH MCHC RDW Plt Count MPV Immature Gran % (Auto) Neut % (Auto) Lymph % (Auto) [place] % (Auto) Eos % (Auto) Baso % (Auto) Lymph # (Auto) [place] # (Auto) Eos # (Auto) Baso # (Auto) Abs Immat Gran (auto) Absolute Neuts (auto) Absolute Nucleated RBC Nucleated RBC % (auto) Anion Gap Estim Creat Clear Calc Estimated GFR POC Glucose 112 142 H Random Glucose Calcium Phosphorus Magnesium Assessment and Plan (1) Toxic metabolic encephalopathy: Status: Acute (2) Terminal ileitis: Status: Acute (3) Respiratory failure with hypoxia and hypercapnia: Status: Acute (4) Obstructive sleep apnea: Status: Acute Plan 63F PMH copd, hld, chronic pain, obesity s/p sleeve gastrectomy, gerd, adhdh, mood disorder presented with abd pain acute Toxic metabolic encephalopathy, improving Multifactorial, Polypharmacy, Hypercapnia Improved with CPAP and holding medications Avoid medications that might affect her mentation; restart Depakote and Gabapentin Psych eval for medications advice terminal ileitis Improving, tolerating diet Continue Rocephin, flagyl and hold Amoxic\Clav acute hpyoixc respiratory failure wean o2 as tolerated Had sleep study overnight; pending review The patient refuses to use CPAP at night and does not want to use it now or later uti culture negative, finished 5 days Abx. copd stable gerd ppi full code dvt prophylaxis - lovenox reason for continued hospitalization: Pending resolution of encephalopathy and increase diet intake pending psych evaluation Quality Stroke Does the patient have a stroke diagnosis?: No VTE Prior VTE?: No VTE Risk Level:: Medical - moderate - high VTE Device Contraindication: N/A - Device Ordered VTE Drug Contraindication: N/A - Med Ordered
[2023-12-26] MEDS: metroNIDAZOLE 500 MG TABLET PO ×2 (15:05→22:52)
[2023-12-26] MEDS: Butalb/Acetamin/Caff 50/325/40 TABLET 1 TAB PO (15:05)
[2023-12-26 15:17] VITALS: BP 133/73; PULSE 67; RESP 18; TEMP 36.5; O2SAT 91
[2023-12-26 15:52] LABS: Glucose, Whole Blood 126 mg/dL (60-115)
--- NOTE | 2023-12-26 16:10 | P.CNPS_ITS ---
History of Present Illness Date of Service: 12/26/2023 Chief Complaint: Ileitis w/ intractable pain Reason for Consult: Polypharmacy, confusion, for medication adjustment and need of in pt psych. Requesting physician: Dennis Garcia Sources of Information: patient interviewed and chart reviewed HPI Narrative: 63 yo female, history of mood disorder, ADHD, COPD, HLD, chronic pain secondary to arthritis, degenerative changes of lumbar spine (s/p 5 surgeries), sleeve gastrectomy, GERD, admitted 12/20/23 with intractable abdominal pain, L leg pain, pneumonia, polyuria. Pt found to have UTI, lactic acidosis which developed into respiratory failure with hypoxia. TEA was diagnosed. Pt developed acute metabolic encephalopathy and was admitted to ICU on 12/22 with agitation and altered mentation secondary to hypercapnia. She improved with BIPAP and returned to medicine. Mental status has improved daily. Today, met with pt and a family member. Pt reports episodic memory lapse regarding admission, and states she does experience some sx of confusion during the night, however, today is alert, oriented and with reports of no mood sx, no SI,HI, AH,VH, sx of miki or psychosis. She reports that some of her medications have been changed which were reviewed. At this time, Doxepin 50 mg HS and Trazodone 400 mg HS have been held. Gabapentin is just being restarted, Depakote decreased from 1500 mg daily to 1000 mg daily. Risperdal Adderall XR, Adderall, Sertraline and Suboxone are unchanged Past Psychiatric History: Pt sees Dr. Monge with [facility] [phone] Medical Evaluation Reviewed: Yes Review of Systems Review of Systems Reports some episodic memory loss regarding admission and some confusion during the night pt reports. [facility] Medical History (Updated 12/26/23 @ 16:36 by Chapis Tariq, ALONSO) Mood disorder Ileitis Vasomotor symptoms due to menopause Impaired fasting glucose Smoker unmotivated to quit Cough present for greater than 3 weeks Hair thinning Prolapse of female pelvic organs Bilateral finger arthralgia Coccyx pain Diabetes mellitus with diabetic neuropathy, without long-term current use of insulin Pain or burning when swallowing Heartburn Hepatomegaly Osteoarthritis, hip, bilateral Bilateral hip pain Lumbar spondylosis Bilateral groin pain Depressive 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 History of pneumonia Vitamin B12 deficiency Vitamin D deficiency Insomnia ADHD Community acquired bilateral lower lobe pneumonia Injury of left heel Cough Cigarette smoker motivated to quit Dysuria Left shoulder pain Dyslipidemia Low back pain Lumbar degenerative disc disease Mixed incontinence urge and stress TEA on CPAP Opiate addiction Depression COPD (chronic obstructive pulmonary disease) Surgical History H/O neck surgery Status post sleeve gastrectomy History of lumbar spinal fusion H/O colonoscopy Hx of cholecystectomy History of partial hysterectomy H/O tubal ligation History of lumbar fusion Diagnostics Vital Signs (24Hr): Vital Signs - 24 hr 12/25/23 19:20 12/25/23 23:05 12/26/23 03:07 Temperature 98.6 F 98.2 F 97.8 F Pulse Rate 67 76 66 Respiratory Rate 18 18 18 Blood Pressure 147/77 H 147/80 H 159/78 H Pulse Oximetry 93 92 98 Oxygen Delivery Method Nasal Cannula Nasal Cannula Nasal Cannula Oxygen Flow Rate 2 2 2 12/26/23 08:00 12/26/23 12:00 12/26/23 15:17 Temperature 97.7 F 97.1 F 97.7 F Pulse Rate 75 81 67 Respiratory Rate 18 18 18 Blood Pressure 158/80 H 147/75 H 133/73 Pulse Oximetry 97 98 91 L Oxygen Delivery Method Room Air Room Air Room Air Oxygen Flow Rate BMI result Body Mass Index 33.4 Labs 12/26/23 06:09 12/26/23 06:09 Labs: Laboratory Results - last 48 hr 12/24/23 12/24/23 12/25/23 16:35 21:26 05:51 WBC 7.2 RBC 5.03 Hgb 14.6 Hct 45.1 MCV 89.7 MCH 29.0 MCHC 32.4 RDW 12.7 Plt Count 163 MPV 9.5 Immature Gran % (Auto) 0.4 Neut % (Auto) 70.3 Lymph % (Auto) 19.8 L [place] % (Auto) 8.3 Eos % (Auto) 0.8 Baso % (Auto) 0.4 Lymph # (Auto) 1.4 [place] # (Auto) 0.6 Eos # (Auto) 0.1 Baso # (Auto) 0.0 Abs Immat Gran (auto) 0.03 Absolute Neuts (auto) 5.1 Absolute Nucleated RBC 0.000 Nucleated RBC % (auto) 0.0 Sodium 138 Potassium 3.6 Chloride 91 L Carbon Dioxide 35 H Anion Gap 16 BUN 9 Creatinine 0.60 Estim Creat Clear Calc 105.3 Estimated GFR > 60 POC Glucose 114 102 Random Glucose 112 Calcium 9.7 D Phosphorus 2.9 Magnesium 2.1 12/25/23 12/25/23 12/25/23 07:19 11:10 16:10 WBC RBC Hgb Hct MCV MCH MCHC RDW Plt Count MPV Immature Gran % (Auto) Neut % (Auto) Lymph % (Auto) [place] % (Auto) Eos % (Auto) Baso % (Auto) Lymph # (Auto) [place] # (Auto) Eos # (Auto) Baso # (Auto) Abs Immat Gran (auto) Absolute Neuts (auto) Absolute Nucleated RBC Nucleated RBC % (auto) Sodium Potassium Chloride Carbon Dioxide Anion Gap BUN Creatinine Estim Creat Clear Calc Estimated GFR POC Glucose 119 H 115 148 H Random Glucose Calcium Phosphorus Magnesium 12/25/23 12/26/23 12/26/23 20:20 06:09 07:46 WBC 7.4 RBC 5.21 Hgb 15.2 Hct 46.1 MCV 88.5 MCH 29.2 MCHC 33.0 RDW 13.2 Plt Count 180 MPV 9.8 Immature Gran % (Auto) 0.4 Neut % (Auto) 60.5 Lymph % (Auto) 28.0 [place] % (Auto) 9.9 Eos % (Auto) 0.8 Baso % (Auto) 0.4 Lymph # (Auto) 2.1 [place] # (Auto) 0.7 Eos # (Auto) 0.1 Baso # (Auto) 0.0 Abs Immat Gran (auto) 0.03 Absolute Neuts (auto) 4.4 Absolute Nucleated RBC 0.000 Nucleated RBC % (auto) 0.0 Sodium 138 Potassium 3.4 Chloride 91 L Carbon Dioxide 38 H Anion Gap 12 BUN 18 H Creatinine 0.72 Estim Creat Clear Calc 88.3 Estimated GFR > 60 POC Glucose 99 112 Random Glucose 106 Calcium 9.6 Phosphorus 3.3 Magnesium 2.2 12/26/23 12/26/23 11:13 15:36 WBC RBC Hgb Hct MCV MCH MCHC RDW Plt Count MPV Immature Gran % (Auto) Neut % (Auto) Lymph % (Auto) [place] % (Auto) Eos % (Auto) Baso % (Auto) Lymph # (Auto) [place] # (Auto) Eos # (Auto) Baso # (Auto) Abs Immat Gran (auto) Absolute Neuts (auto) Absolute Nucleated RBC Nucleated RBC % (auto) Sodium Potassium Chloride Carbon Dioxide Anion Gap BUN Creatinine Estim Creat Clear Calc Estimated GFR POC Glucose 142 H 126 H Random Glucose Calcium Phosphorus Magnesium Imaging Radiology Impressions: ITS Impressions Head CT 12/20/23 02:10 IMPRESSION: No acute intracranial process seen. Electronically signed by: Ludin Real MD 12/20/2023 04:56 AM EDT RP Abdomen/Pelvis CT 12/20/23 02:33 IMPRESSION: 1. Circumferential wall thickening and enhancement of the distal ileum extending to the ileocecal junction. The bowel loops are fluid-filled with adjacent stranding and trace fluid. No bowel wall pneumatosis. No significant cecal wall thickening or inflammatory change. Findings can be seen in the setting of an infectious or inflammatory enteritis. 2. No small or large bowel obstruction. Unremarkable appendix. Mild stool burden throughout the colon. 3. No intra-abdominal mass, lymphadenopathy, or ascites. Fleischner guidelines were followed. Electronically signed by: Emir Marrero MD 12/20/2023 06:26 AM EDT RP Femur X-Ray 12/20/23 06:34 IMPRESSION: No acute abnormality. Electronically signed by: Yinka Cartagena MD 12/20/2023 09:09 AM EDT RP Pelvis X-Ray 12/20/23 06:34 IMPRESSION: No acute abnormality. Electronically signed by: Yinka Cartagena MD 12/20/2023 09:09 AM EDT RP Chest X-Ray 12/20/23 06:59 IMPRESSION: No acute abnormality. Electronically signed by: Yinka Cartagena MD 12/20/2023 09:09 AM EDT RP Venous Duplex 12/20/23 07:24 IMPRESSION: No evidence of deep venous thrombosis involving the left lower extremity. Electronically signed by: Keagan Still MD 12/20/2023 07:59 AM EDT RP Chest X-Ray 12/22/23 09:25 IMPRESSION: Bronchial wall thickening and trace hazy opacity at the right lung base may be infectious and/or inflammatory in etiology. Electronically signed by: Rosa Mendez MD 12/22/2023 09:48 AM EDT RP Chest X-Ray 12/23/23 20:35 IMPRESSION: Small right pleural effusion and bibasilar streaky atelectasis. No large airspace consolidation. Electronically signed by: Miles Parks DO 12/23/2023 09:58 PM EDT RP Mental Status Exam Mental Status Exam Patient Appearance: Appropriate Patient Orientation: Person, Place, Time and Situation Level of Consciousness: Alert Patient Behavior: Appropriate, Talkative, Cooperative and Good Eye Contact Mood Description: Appropriate and Apprehensive Affect Description: Constricted Patient Cognition Impaired: No Ability to Follow Directions: Good Speech Pattern: Spontaneous Speech Memory Description: Episodic Impaired Hallucinations: None Delusions: Not Present Thought Process: Intact and Distracted (mildly-putting data together since her admission) Thought Content: positive for Intact, positive for [employer] and positive for Circumstantial Depressive Symptoms: Insomnia and Difficulty Sleeping Judgement: Fair Medications Medications Current Medications Acetaminophen (Acetaminophen 325 Mg Tablet) 650 mg PO Q6H PRN PRN Reason: Pain, Mild (Pain Scale 1-3), fever or headache Last Admin: 12/26/23 10:46 Dose: 650 mg Albuterol/Ipratropium (Albuterol/Iprat 2.5/0.5mg 3 Ml Ampul.Neb) 3 ml INHALE RQ4H WHILE AWAKE [facility] Last Admin: 12/26/23 15:02 Dose: Not Given Amoxicillin/Clavulanate Potassium (Amoxicillin/Potassium Clav 875 Mg Tablet) 875 mg PO Q12H [facility] Last Admin: 12/23/23 17:25 Dose: 875 mg Amphetamine/Dextroamphetamine (Amphetamine Mixed Salts 10 Mg Tablet) 10 mg PO DAILY@1200 [facility] Last Admin: 12/26/23 12:49 Dose: 10 mg Amphetamine/Dextroamphetamine (Amphetamine Mixed Salts 10 Mg Tablet) 30 mg PO BID@0900,1500 [facility] Last Admin: 12/26/23 15:05 Dose: 30 mg Atorvastatin Calcium (Atorvastatin Calcium 20 Mg Tablet) 20 mg PO DAILY [facility] Last Admin: 09/05/24 09:17 Dose: 20 mg Buprenorphine/Naloxone (Buprenorphine/Naloxone 8/2 Mg Film) 1 film SUBLINGUAL DAILY [facility] Last Admin: 12/26/23 09:17 Dose: 1 film Buprenorphine/Naloxone (Buprenorphine/Naloxone 8/2 Mg Film) 1 film BUCCAL DAILY@1400 [facility] Last Admin: 12/23/23 14:01 Dose: 1 film Clotrimazole (Clotrimazole 1 % Cream 15 Gm Tube) 1 appl TOPICAL BID [facility]; Protocol Last Admin: 12/26/23 09:21 Dose: Not Given Divalproex Sodium (Divalproex Sodium Er 500 Mg Tab.Er.24h) 1,000 mg PO BEDTIME [facility] Last Admin: 12/25/23 21:25 Dose: 500 mg Enoxaparin Sodium (Enoxaparin Sodium 40 Mg/0.4 Ml Syringe) 40 mg SUBCUT Q24H [facility] Last Admin: 12/26/23 12:49 Dose: 40 mg Ceftriaxone Sodium 1 gm/ (Sodium Chloride) 50 mls @ 100 mls/hr IV Q24H [facility] Last Infusion: 12/25/23 21:55 Dose: Infused Metronidazole (Metronidazole 500 Mg Tablet) 500 mg PO Q8H [facility] Last Admin: 12/26/23 15:05 Dose: 500 mg Nicotine (Nicotine 21 Mg Patch.Td24) 21 mg TRANSDERMA DAILY [facility] Last Admin: 12/26/23 09:18 Dose: 21 mg Nicotine Polacrilex (Nicotine Polacrilex 2 Mg Gum) 4 mg BUCCAL BID [facility] Last Admin: 12/26/23 11:09 Dose: Not Given Nicotine Polacrilex (Nicotine Polacrilex 2 Mg Gum) 2 mg BUCCAL Q1H PRN PRN Reason: craving Last Admin: 12/22/23 16:33 Dose: 2 mg Omeprazole (Omeprazole 20 Mg Capsule.Dr) 20 mg PO DAILY@0630 [facility] Last Admin: 12/26/23 06:35 Dose: 20 mg Ondansetron HCl (Ondansetron Hcl 4 Mg/2 Ml Vial) 4 mg IVPUSH Q8H PRN PRN Reason: Nausea and Vomiting Last Admin: 12/24/23 01:48 Dose: 4 mg Risperidone (Risperidone 3 Mg Tablet) 3 mg PO BEDTIME [facility] Last Admin: 12/25/23 21:33 Dose: Not Given Sertraline HCl (Sertraline Hcl 100 Mg Tablet) 200 mg PO DAILY [facility] Last Admin: 12/26/23 09:19 Dose: 200 mg Sodium Chloride (0.9 % Sodium Chloride Flush 3 Ml Syringe) 3 ml IVFLUSH QSHIFT [facility] Last Admin: 12/26/23 15:07 Dose: 3 ml Allergies Allergies Allergy/AdvReac Type Severity Reaction Status Date / Time bupropion [From Wellbutrin] Allergy Intermediate Itching Verified 12/19/23 22:35 influenza virus vaccine, Allergy Unknown RASH Verified 12/19/23 22:35 specific [FLU VACCINE] latex Allergy Unknown Rash Verified 12/19/23 22:35 Sulfa (Sulfonamide Allergy Unknown UNKNOWN, Verified 12/19/23 22:35 Antibiotics) itch, itching baclofen Allergy twitching, Verified 12/19/23 22:35 falling down Assessment & Plan Assessment & Plan (1) Mood disorder: Status: Acute Code(s): F39 - Unspecified mood [affective] disorder (2) ADHD: Status: Acute Code(s): F90.9 - Attention-deficit hyperactivity disorder, unspecified type Plan 63 yo female, admitted 12/20/23 with abdominal pain (terminal ileitis), L leg pain, pneumonia, polyuria, UTI which progressed into respiratory failure with hypoxia/hypercapnia and acute toxic metabolic encephalopathy, TEA. As a result, pt developed altered mentation, agitation, which is resolving. Today she reports confusion is mostly at night along with difficulty sleeping. TEA is newly identified, however pt declines CPAP due to feeling increase anxiety with the need for a mask. She was able to review medications with tw and discuss symptoms. Suggest 1. No medication changes at this time. --Continue Suboxone, Adderall XR, Adderall, Sertraline, Depakote at reduced dose, Risperdal, Gabapentin --Continue to hold Doxepin, Trazodone 2. Pt reports some increase in confusion during the night, most likely due to TEA. If possible access to nasal cannula due to refusal of CPAP may assist in decreasing this sx. 3. Valproate level 4. Re-consult if symptoms increase or if pt requests. 5. Message left for out patient provider with [facility] Fulton. Total time managing care of this patient today ____ minutes. Patient educated on: medication risk/benefits, therapeutic strategies and medical condition Informed Consent: understands
[2023-12-26 19:06] VITALS: BP 126/70; PULSE 75; RESP 16; TEMP 36; O2SAT 96
[2023-12-26] MEDS: Divalproex Sodium ER 500 MG TAB.ER.24H 1000 MG PO (20:24)
[2023-12-26] MEDS: risperiDONE 3 MG TABLET PO (20:25)
[2023-12-26] MEDS: Clotrimazole 1 % Cream 15 GM TUBE 1 APPL TOPICAL (20:34)
[2023-12-26 20:46] LABS: Glucose, Whole Blood 149 mg/dL (60-115)
[2023-12-26] MEDS: cefTRIAXone sodium 1 GM in 0.9 % Sodium Chloride 50 ML IV (21:46)
[2023-12-26 23:00] VITALS: BP 101/48; PULSE 66; RESP 16; TEMP 36.2; O2SAT 97
--- NOTE | 2023-12-26 23:40 | PC.RT ---
Patient refuses Bipap. Patient will notify RT epic application coordinator if she chooses to wear it.
[2023-12-27] MEDS: 0.9 % Sodium Chloride Flush 3 ML SYRINGE IVFLUSH ×2 (00:30→10:32)
[2023-12-27 03:42] VITALS: BP 126/63; PULSE 68; RESP 17; TEMP 36.2; O2SAT 94
[2023-12-27 06:00] VITALS: BMI 34.1
[2023-12-27 06:21] LABS: MANUAL DIFF FLAG NO
[2023-12-27] MEDS: metroNIDAZOLE 500 MG TABLET PO (06:32)
[2023-12-27] MEDS: Omeprazole 20 MG CAPSULE.DR PO (06:32)
[2023-12-27 06:43] LABS: Basophils Percent Auto 0.4 % (0-2); Eosinophils Absolute Auto 0.1 X10*3/uL (0.0-0.4); Eosinophils Percent Auto 1.8 % (0-4); Hemoglobin 14.3 g/dl (12.0-16.0); Imm Gran Abs Auto 0.03 X10*3/uL (0.00-0.03); Imm Gran Pct Auto 0.4 % (0.0-0.4); Lymphocytes Absolute Auto 3.1 X10*3/uL (1.2-4.9); Lymphocytes Percent Auto 45.8 % (20-40); Mean Corpuscular HGB Conc 32.5 g/dl (31.0-35.0); Mean Corpuscular Hemoglobin 28.8 pg (27.0-33.0); Mean Corpuscular Volume 88.7 fL (80.0-98.0); Mean Platelet Volume 9.7 fL (9.4-12.3); Monocytes Absolute Auto 0.5 X10*3/uL (0.1-1.2); Neutrophils Absolute Auto 2.9 x10*3/uL (2.0-8.3); Neutrophils Percent Auto 43.6 % (45-73); Platelet Count 174 X10*3/uL (160-400); Red Blood Count 4.96 X10*6/uL (4.20-5.50); Red Cell Distribution Width 13.3 % (11.0-16.0); White Blood Count 6.7 X10*3/uL (4.8-10.8)
[2023-12-27 06:46] LABS: Anion Gap 13 (12-20); Blood Urea Nitrogen 23 mg/dL (9-16); Calcium 9.3 mg/dL (8.4-10.2); Carbon Dioxide 35 mmol/L (22-29); Chloride 95 mmol/L (96-108); Creatinine Clr Calc Pharmacy 86.8; Estimated Glomerular Filt Rate > 60; Glucose Random 113 mg/dL (60-115); Magnesium 2.3 mg/dL (1.6-2.6); Phosphorus 4.4 mg/dL (2.7-4.5); Potassium 3.2 mmol/L (3.3-5.1); Sodium 140 mmol/L (135-145)
[2023-12-27 07:48] LABS: Glucose, Whole Blood 133 mg/dL (60-115)
[2023-12-27 07:50] VITALS: BP 101/54; PULSE 66; RESP 20; TEMP 36.1; O2SAT 95
--- NOTE | 2023-12-27 10:07 | PM.PNGS ---
Subjective Subjective Date of Service: 12/27/23 Interval history: Had respiratory problems requiring ICU care Now in [facility] Says she feels better Denies any abdominal pain Tolerating diet Physical Exam Vital Signs: Vital Signs: Last Vital Signs Temp 97 F 12/27/23 07:50 Pulse 66 12/27/23 07:50 Resp 20 12/27/23 07:50 BP 101/54 L 12/27/23 07:50 Pulse Ox 95 12/27/23 07:50 O2 Del Method Nasal Cannula 12/27/23 07:50 O2 Flow Rate 2 12/27/23 07:50 FiO2 30 12/24/23 16:00 BMI result Body Mass Index 34.1 Const: General: comfortable and no acute distress Resp: Effort & Inspection: normal respiratory effort Cardio: Rate: regular rate GI: Palpation (GI): Soft to palpation, not firm, nontender and no guarding Objective Data Active Medications Acetaminophen (Acetaminophen 325 Mg Tablet) 650 mg PO Q6H PRN PRN Reason: Pain, Mild (Pain Scale 1-3), fever or headache Last Admin: 12/26/23 20:23 Dose: 650 mg Documented By: ADINA Albuterol/Ipratropium (Albuterol/Iprat 2.5/0.5mg 3 Ml Ampul.Neb) 3 ml INHALE RQ4H WHILE AWAKE [facility] Last Admin: 12/27/23 07:35 Dose: Not Given Documented By: HOMERO Non-Admin Reason: Patient Refused Amoxicillin/Clavulanate Potassium (Amoxicillin/Potassium Clav 875 Mg Tablet) 875 mg PO Q12H [facility] Last Admin: 12/23/23 17:25 Dose: 875 mg Documented By: JENNIFER Amphetamine/Dextroamphetamine (Amphetamine Mixed Salts 10 Mg Tablet) 10 mg PO DAILY@1200 [facility] Last Admin: 12/26/23 12:49 Dose: 10 mg Documented By: RICHARD Amphetamine/Dextroamphetamine (Amphetamine Mixed Salts 10 Mg Tablet) 30 mg PO BID@0900,1500 [facility] Last Admin: 12/26/23 15:05 Dose: 30 mg Documented By: RICHARD Atorvastatin Calcium (Atorvastatin Calcium 20 Mg Tablet) 20 mg PO DAILY [facility] Last Admin: 12/26/23 09:17 Dose: 20 mg Documented By: RICHARD Buprenorphine/Naloxone (Buprenorphine/Naloxone 8/2 Mg Film) 1 film SUBLINGUAL DAILY [facility] Last Admin: 12/26/23 09:17 Dose: 1 film Documented By: RICHARD Buprenorphine/Naloxone (Buprenorphine/Naloxone 8/2 Mg Film) 1 film BUCCAL DAILY@1400 [facility] Last Admin: 12/23/23 14:01 Dose: 1 film Documented By: LEXI Clotrimazole (Clotrimazole 1 % Cream 15 Gm Tube) 1 appl TOPICAL BID [facility]; Protocol Last Admin: 12/26/23 20:34 Dose: 1 appl Documented By: ADINA Divalproex Sodium (Divalproex Sodium Er 500 Mg Tab.Er.24h) 1,000 mg PO BEDTIME [facility] Last Admin: 12/26/23 20:24 Dose: 1,000 mg Documented By: ADINA Enoxaparin Sodium (Enoxaparin Sodium 40 Mg/0.4 Ml Syringe) 40 mg SUBCUT Q24H [facility] Last Admin: 12/26/23 12:49 Dose: 40 mg Documented By: RICHARD Ceftriaxone Sodium 1 gm/ (Sodium Chloride) 50 mls @ 100 mls/hr IV Q24H [facility] Last Infusion: 12/26/23 22:16 Dose: Infused Documented By: ADINA Metronidazole (Metronidazole 500 Mg Tablet) 500 mg PO Q8H [facility] Last Admin: 12/27/23 06:32 Dose: 500 mg Documented By: ADINA Nicotine (Nicotine 21 Mg Patch.Td24) 21 mg TRANSDERMA DAILY [facility] Last Admin: 12/26/23 09:18 Dose: 21 mg Documented By: RICHARD Nicotine Polacrilex (Nicotine Polacrilex 2 Mg Gum) 4 mg BUCCAL BID [facility] Last Admin: 12/26/23 20:30 Dose: Not Given Documented By: ADINA Non-Admin Reason: Patient Refused Nicotine Polacrilex (Nicotine Polacrilex 2 Mg Gum) 2 mg BUCCAL Q1H PRN PRN Reason: craving Last Admin: 12/22/23 16:33 Dose: 2 mg Documented By: JENNIFER Omeprazole (Omeprazole 20 Mg Capsule.) 20 mg PO DAILY@0630 [facility] Last Admin: 12/27/23 06:32 Dose: 20 mg Documented By: ADINA Ondansetron HCl (Ondansetron Hcl 4 Mg/2 Ml Vial) 4 mg IVPUSH Q8H PRN PRN Reason: Nausea and Vomiting Last Admin: 12/24/23 01:48 Dose: 4 mg Documented By: ASHLEY Risperidone (Risperidone 3 Mg Tablet) 3 mg PO BEDTIME [facility] Last Admin: 12/26/23 20:25 Dose: 3 mg Documented By: ADINA Sertraline HCl (Sertraline Hcl 100 Mg Tablet) 200 mg PO DAILY [facility] Last Admin: 12/26/23 09:19 Dose: 200 mg Documented By: RICHARD Sodium Chloride (0.9 % Sodium Chloride Flush 3 Ml Syringe) 3 ml IVFLUSH QSHIFT [facility] Last Admin: 12/27/23 00:30 Dose: 3 ml Documented By: ADINA Labs 12/27/23 05:48 12/27/23 05:48 Labs: Laboratory Results - last 24 hr 12/26/23 12/26/23 12/26/23 11:13 15:36 20:37 MCV MCH MCHC RDW Plt Count MPV Immature Gran % (Auto) Neut % (Auto) Lymph % (Auto) Ogle % (Auto) Eos % (Auto) Baso % (Auto) Lymph # (Auto) Ogle # (Auto) Eos # (Auto) Baso # (Auto) Abs Immat Gran (auto) Absolute Neuts (auto) Absolute Nucleated RBC Nucleated RBC % (auto) Anion Gap Estim Creat Clear Calc Estimated GFR POC Glucose 142 H 126 H 149 H Random Glucose Calcium Phosphorus Magnesium 12/27/23 12/27/23 05:48 07:20 MCV 88.7 MCH 28.8 MCHC 32.5 RDW 13.3 Plt Count 174 MPV 9.7 Immature Gran % (Auto) 0.4 Neut % (Auto) 43.6 L Lymph % (Auto) 45.8 H Ogle % (Auto) 8.0 Eos % (Auto) 1.8 Baso % (Auto) 0.4 Lymph # (Auto) 3.1 Ogle # (Auto) 0.5 Eos # (Auto) 0.1 Baso # (Auto) 0.0 Abs Immat Gran (auto) 0.03 Absolute Neuts (auto) 2.9 Absolute Nucleated RBC 0.000 Nucleated RBC % (auto) 0.0 Anion Gap 13 Estim Creat Clear Calc 86.8 Estimated GFR > 60 POC Glucose 133 H Random Glucose 113 Calcium 9.3 Phosphorus 4.4 Magnesium 2.3 Procedures Date of Service Date of Service: 12/27/23 Progress Note: A&P Assessment and plan (1) Terminal ileitis: Status: Acute Assessment and Plan: Symptoms resolved Has respiratory issues - known COPD Abdomen is soft, benign nontender We will need GI follow-up Time Spent With Patient Time: Total time managing care of this patient today ____ minutes. Quality Stroke Does the patient have a stroke diagnosis?: No VTE Prior VTE?: No VTE Risk Level:: Medical - moderate - high VTE Device Contraindication: N/A - Device Ordered VTE Drug Contraindication: N/A - Med Ordered
[2023-12-27] MEDS: Nicotine 21 MG PATCH.TD24 TRANSDERMA (10:31)
[2023-12-27] MEDS: Buprenorphine/Naloxone 8/2 mg FILM 1 FILM SUBLINGUAL (10:32)
[2023-12-27] MEDS: Amphetamine Mixed Salts 10 MG TABLET 30 MG PO (10:33)
[2023-12-27] MEDS: Atorvastatin Calcium 20 MG TABLET PO (10:33)
[2023-12-27] MEDS: Sertraline HCL 100 MG TABLET 200 MG PO (10:33)
[2023-12-27 11:39] VITALS: BP 117/54; PULSE 70; RESP 20; TEMP 36.1; O2SAT 92
--- NOTE | 2023-12-27 12:39 | PM.DS ---
DS: Providers Provider Date of Service: 12/27/23 Date of admission: 12/20/23 12:41 Date of discharge: 12/27/23 Primary care physician: Melissa Topete MD Consults: 12/20/23 12:38 Consult to Gastroenterology Routine Consulting Provider: Jody Moreno Reason for consultation: CT abd showing ileitis 12/20/23 13:42 Consult to General Surgery Routine Consulting Provider: [facility] General Surgeons Reason for consultation: Intractable abd pain, CT w/enteritis 12/26/23 08:15 Consult to Psychiatry Routine Consulting Provider: Psych Covering Reason for consultation: Polypharmacy, confusion, for medications adjustments and need of inpt psych DS: Diagnosis Discharge Diagnosis (1) Terminal ileitis: Status: Acute (2) Mood disorder: Status: Acute (3) Toxic metabolic encephalopathy: Status: Acute (4) Respiratory failure with hypoxia and hypercapnia: Status: Acute (5) Obstructive sleep apnea: Status: Acute (6) Ileitis: Status: Acute DS: Summary Hospital Course Hospital Course: Admission note HPI Pt is a 63-year-old female with a PMH significant for?COPD, HLD, chronic pain syndrome secondary to arthritis and 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 Pt reports earlier in the week presented to an urgent care with cough that has been ongoing for 1.5 months occasionally productive of whitish sputum, worsening past week. Was diagnosed with pneumonia and started on azithromycin. The next day patient developed periumbilical sharp, stabbing, nonradiating abdominal pain. Denies nausea, vomiting, diarrhea. Pt also complains of diffuse left leg pain radiating to back over same time period. No known trauma to the area. Also endorses polyuria, no dysuria. Family is at bedside and sister notes patient has been ?doubled over? due to pain and needing wheelchair for ambulation rather than her walker. No chest pain/pressure, palpitations. Denies fever, chills. In the ED pt was hypertensive up to 168/86 and desatting as low as 85% on RA. Labs were significant for lactic acid 2.5, otherwise grossly unremarkable. No leukocytosis. Stable H&H. No significant electrolyte abnormalities. Renal and hepatic function WNL. Ammonia WNL. Troponin negative. UTI showing leukocyte esterase with wbc's 11-20 and 3-5 squamous cells. CXR showed no acute abnormality. CT?of head showed no acute intracranial process. CT of abdomen and pelvis showed findings suggestive of infectious or inflammatory enteritis. X-ray of pelvis negative. Left femur x-ray negative. Ultrasound venous duplex of left lower extremity negative for DVT. EKG showed normal sinus rhythm without evidence of significant ST elevations or depressions. Pt was treated with 3L IVF, morphine, Protonix, ondansetron, and ceftriaxone. Pt will be admitted to the hospital for treatment and further evaluation intractable abdominal pain in the setting of enteritis. Hospital course # Acute Toxic metabolic encephalopathy, Likely Multifactorial, Polypharmacy, Hypercapnia which has improved back to baseline during hospital stay with short term CPAP usage and holding medications with treating infection. The patient was asked to Avoid medications that might affect her mentation as her home medications gradually added. Psych evaluation for medications advised to continue to hold Trazodone and Doxepin on dischage with a plan to follow up with Psychiatry as outpatient. Gabapentin also decreased to 400 mg tid. # Acute terminal ileitis Was evaluated by surgery and GI who recommended medical management. Improved as she was able to tolerate diet. Treated with Rocephin, flagyl for 1 week. To continue to advance diet as tolerated at home. # acute hpyoixc respiratory failure Developed during hospital stay. likely multifactorial but with evidence of TEA and polypharmacy. weaned o2 to room air. Had sleep study overnight which reporting TEA. The patient refuses to use CPAP at night and does not want to use it now or later. Discussed with her and she would like to speak to her PCP about treatment options. # Bactirurea culture negative, finished 5 days Abx. Discharge plan Hold both Doxepin and Trazodone. Discuss with psychiatrist the need to restart Decrease Gabapentin to 400 mg three times daily Follow with psychiatry as outpatient Consider follow up with PCP regarding diagnosis of obstructive sleep apnea for management. Time Attestation Discharge Coordination Time (in mins): 47 Quality: Safe Use of Opioids Does Pt have an Active Cancer Diagnosis on the Problem List?: No Quality: Stroke Does the patient have a stroke diagnosis?: No Physical Exam Vital Signs: Vital Signs: Last Vital Signs Temp 97 F 12/27/23 11:39 Pulse 70 12/27/23 11:39 Resp 20 12/27/23 11:39 BP 117/54 L 12/27/23 11:39 Pulse Ox 92 12/27/23 11:39 O2 Del Method Nasal Cannula 12/27/23 11:39 O2 Flow Rate 3 12/27/23 11:39 FiO2 30 12/24/23 16:00 BMI result Body Mass Index 34.1 Const: Other: Constitutional : Awake, interactive, not in distress Neck : Normal inspection, Supple Cardiovascular : RRR, no JVP, no lower extremity edema Respiratory : good bilateral air entry, no crackles, wheezes or rhonchi Gastrointestinal: soft, lax, Normal bowel sounds, Non tender Skin : Warm, Dry Neurological : Alert & oriented x3, No focal deficit DS: Data Data Completed and Pending Completed studies during hospitalization [Text1]: Procedures Excision of Stomach, Percutaneous Endoscopic Approach, Vertical (10/24/21) Labs on day of discharge: Laboratory Results - last 24 hr 12/26/23 12/26/23 12/27/23 15:36 20:37 05:48 WBC 6.7 RBC 4.96 Hgb 14.3 Hct 44.0 MCV 88.7 MCH 28.8 MCHC 32.5 RDW 13.3 Plt Count 174 MPV 9.7 Immature Gran % (Auto) 0.4 Neut % (Auto) 43.6 L Lymph % (Auto) 45.8 H [place] % (Auto) 8.0 Eos % (Auto) 1.8 Baso % (Auto) 0.4 Lymph # (Auto) 3.1 [place] # (Auto) 0.5 Eos # (Auto) 0.1 Baso # (Auto) 0.0 Abs Immat Gran (auto) 0.03 Absolute Neuts (auto) 2.9 Absolute Nucleated RBC 0.000 Nucleated RBC % (auto) 0.0 Sodium 140 Potassium 3.2 L Chloride 95 L Carbon Dioxide 35 H Anion Gap 13 BUN 23 H Creatinine 0.74 Estim Creat Clear Calc 86.8 Estimated GFR > 60 POC Glucose 126 H 149 H Random Glucose 113 Calcium 9.3 Phosphorus 4.4 Magnesium 2.3 12/27/23 07:20 WBC RBC Hgb Hct MCV MCH MCHC RDW Plt Count MPV Immature Gran % (Auto) Neut % (Auto) Lymph % (Auto) [place] % (Auto) Eos % (Auto) Baso % (Auto) Lymph # (Auto) [place] # (Auto) Eos # (Auto) Baso # (Auto) Abs Immat Gran (auto) Absolute Neuts (auto) Absolute Nucleated RBC Nucleated RBC % (auto) Sodium Potassium Chloride Carbon Dioxide Anion Gap BUN Creatinine Estim Creat Clear Calc Estimated GFR POC Glucose 133 H Random Glucose Calcium Phosphorus Magnesium Imaging Chest x-ray: Radiologist's impression: ITS Impressions Head CT 12/20/23 02:10 IMPRESSION: No acute intracranial process seen. Electronically signed by: Ludin Real MD 12/20/2023 04:56 AM EDT RP Abdomen/Pelvis CT 12/20/23 02:33 IMPRESSION: 1. Circumferential wall thickening and enhancement of the distal ileum extending to the ileocecal junction. The bowel loops are fluid-filled with adjacent stranding and trace fluid. No bowel wall pneumatosis. No significant cecal wall thickening or inflammatory change. Findings can be seen in the setting of an infectious or inflammatory enteritis. 2. No small or large bowel obstruction. Unremarkable appendix. Mild stool burden throughout the colon. 3. No intra-abdominal mass, lymphadenopathy, or ascites. Fleischner guidelines were followed. Electronically signed by: Emir Marrero MD 12/20/2023 06:26 AM EDT RP Femur X-Ray 12/20/23 06:34 IMPRESSION: No acute abnormality. Electronically signed by: Yinka Cartagena MD 12/20/2023 09:09 AM EDT RP Pelvis X-Ray 12/20/23 06:34 IMPRESSION: No acute abnormality. Electronically signed by: Yinka Cartagena MD 12/20/2023 09:09 AM EDT RP Chest X-Ray 12/20/23 06:59 IMPRESSION: No acute abnormality. Electronically signed by: Yinka Cartagena MD 12/20/2023 09:09 AM EDT RP Venous Duplex 12/20/23 07:24 IMPRESSION: No evidence of deep venous thrombosis involving the left lower extremity. Electronically signed by: Keagan Still MD 12/20/2023 07:59 AM EDT RP Chest X-Ray 12/22/23 09:25 IMPRESSION: Bronchial wall thickening and trace hazy opacity at the right lung base may be infectious and/or inflammatory in etiology. Electronically signed by: Rosa Mendez MD 12/22/2023 09:48 AM EDT RP Chest X-Ray 12/23/23 20:35 IMPRESSION: Small right pleural effusion and bibasilar streaky atelectasis. No large airspace consolidation. Electronically signed by: Miles Parks DO 12/23/2023 09:58 PM EDT RP Discharge Plan Discharge Anticipated Discharge Date/Time: 12/27/23 12:30 Patient Disposition: Home, Self-Care Discharge Diagnosis: Terminal Ileitis Encephalopathy Referrals: Melissa Topete MD [Primary Care Provider] - 1 Week Discharge Medications: Continued albuterol sulfate [Ventolin HFA] 90 mcg/actuation HFA aerosol inhaler 2 puff PO QID PRN (Reason: wheezing) Qty: 8.5 3RF clotrimazole 1 % cream 1 appl topical BID Qty: 90 3RF dextroamphetamine-amphetamine 30 mg tablet 30 mg PO BID@0900,1500 buprenorphine-naloxone 8-2 mg film 1 strip sublingual DAILY nicotine (polacrilex) 4 mg gum 4 mg buccal BID nicotine 21 mg/24 hr patch 24 hour 1 patch topical DAILY Linzess 290 mcg capsule 290 mcg PO DAILY pantoprazole 40 mg tablet,delayed release (DR/EC) 40 mg PO DAILY@0630 Rx Instructions: take one tablet half an hour before breakfast buprenorphine-naloxone [Suboxone] 8-2 mg Film 1 film BUCCAL DAILY@1400 dextroamphetamine-amphetamine 10 mg tablet 1 tab PO DAILY@1200 rosuvastatin 5 mg tablet 5 mg PO DAILY Qty: 30 5RF sertraline 100 mg tablet 200 mg PO DAILY risperidone 3 mg tablet 3 mg PO BEDTIME divalproex 500 mg tablet extended release 24 hr 1,500 mg PO BEDTIME Changed gabapentin 800 mg tablet 400 mg PO TID 30 Days Qty: 90 6RF Held trazodone 100 mg tablet 400 mg PO BEDTIME Hold Instructions: Discuss with psychiatrist the need to restart and if you are restarting start with lower dose of 100 mg only. doxepin 50 mg capsule 50 mg PO BEDTIME Hold Instructions: Discuss with psychiatrist the need to restart Discharge Orders: Discharge Order (Routine); Ordered 12/27/23 Ordered By: Dennis Garcia Diet: Advance to usual diet Activity on Discharge: As tolerated Stand Alone Forms: Patient Portal Discharge page Print Language: [place] Care Plan Goals: You were treated for abdominal pain from infectious ileitis as you were evaluated by GI specialist with good response finishing 1 week of antibiotics. You were also treated for altered mentation from multi-medications. adjusted with good response. You refused CPAP machine as part of treatment of obstructive sleep apnea. Hold both Doxepin and Trazodone. Discuss with psychiatrist the need to restart Decrease Gabapentin to 400 mg three times daily Follow with psychiatry as outpatient Consider follow up with PCP regarding diagnosis of obstructive sleep apnea for management. Health Concerns: Read below Plan of Treatment: Read below Assessment: Read below
[2023-12-27 12:49] LABS: Glucose, Whole Blood 110 mg/dL (60-115)
[2023-12-27] MEDS: Enoxaparin Sodium 40 MG/0.4 ML SYRINGE SUBCUT (12:56)
[2023-12-27] MEDS: Amphetamine Mixed Salts 10 MG TABLET PO (12:56)
--- NOTE | 2023-12-27 13:08 | MHC.CM.PN ---
Second IMM given 12/26. Pt is medically cleared for discharge home self-care, pt has arranged her own transportation home.
== END 2023-12-27 13:00 | disposition home or self-care (01) | DRG 385 ==
LOC: HO.ED 12-20 07:00 → HO.EDOVER 12-20 12:59 → HO.S3 12-20 16:44 → HO.ICU 12-23 21:01 → HO.IMC 12-24 11:22
PROVIDERS: Emergency Medicine; Internal Medicine; Internal Medicine Critical Care Medicine; Nurse Practitioner Family; Student in an Organized Health Care Education/Training Program; Admitting Provider Student in an Organized Health Care Education/Training Program; Emergency Provider Emergency Medicine; PCP Internal Medicine; Visit Provider Student in an Organized Health Care Education/Training Program
DX: K50.00 Crohn's disease of small intestine without complications (principal); G92.8 Other toxic encephalopathy; J96.01 Acute respiratory failure with hypoxia; E87.20 Acidosis, unspecified; F11.20 Opioid dependence, uncomplicated; N39.0 Urinary tract infection, site not specified; J44.9 Chronic obstructive pulmonary disease, unspecified; T50.915A Adverse effect of multiple unspecified drugs, medicaments and biological substances, initial encounter; E78.5 Hyperlipidemia, unspecified; G47.33 Obstructive sleep apnea (adult) (pediatric); F39 Unspecified mood [affective] disorder; G89.4 Chronic pain syndrome; F90.9 Attention-deficit hyperactivity disorder, unspecified type; K21.9 Gastro-esophageal reflux disease without esophagitis; M79.662 Pain in left lower leg; F17.210 Nicotine dependence, cigarettes, uncomplicated; Z97.8 Presence of other specified devices; Z71.6 Tobacco abuse counseling; Z98.1 Arthrodesis status; Z98.84 Bariatric surgery status; Z79.899 Other long term (current) drug therapy
CPT/HCPCS: 36415; 36600; 70450; 71045; 71046; 72170; 73552; 74177; 80048; 80076; 80307; 81001; 81003; 82040; 82140; 82803; 82947; 83605; 83690; 83735; 84100; 84484; 85025; 85027; 87086; 92950; 93005; 93971; 94640; 94660; 99285; J0696; J1650; J1836; J2270; J2405; J2470; Q9967

== ENCOUNTER → 2023-12-20 01:10 | Outpatient (BNV) | payer OTHER, SELFPAY | PROVIDERS: Emergency Provider Emergency Medicine; PCP Internal Medicine; Visit Provider Physician Assistant Surgical | DX: R10.33 Periumbilical pain (principal) | CPT/HCPCS: 99284 ==

== ENCOUNTER → 2023-12-20 12:41 | Outpatient (BNV) | payer MEDICARE, SELFPAY | PROVIDERS: Admitting Provider Student in an Organized Health Care Education/Training Program; Emergency Provider Emergency Medicine; PCP Internal Medicine; Visit Provider Internal Medicine Critical Care Medicine | DX: J44.9 Chronic obstructive pulmonary disease, unspecified (principal); J96.91 Respiratory failure, unspecified with hypoxia; J96.92 Respiratory failure, unspecified with hypercapnia; G47.33 Obstructive sleep apnea (adult) (pediatric); K50.00 Crohn's disease of small intestine without complications | CPT/HCPCS: 99291 ==

== ENCOUNTER → 2023-12-20 12:41 | Outpatient (BNV) | payer MEDICARE, SELFPAY | PROVIDERS: Admitting Provider Student in an Organized Health Care Education/Training Program; Emergency Provider Emergency Medicine; PCP Internal Medicine; Visit Provider Clinical Nurse Specialist Psychiatric/Mental Health, Adult | DX: F39 Unspecified mood [affective] disorder (principal); F90.9 Attention-deficit hyperactivity disorder, unspecified type | CPT/HCPCS: 99232 ==

== ENCOUNTER → 2023-12-20 12:41 | Outpatient (BNV) | payer OTHER, SELFPAY | PROVIDERS: Admitting Provider Student in an Organized Health Care Education/Training Program; Emergency Provider Emergency Medicine; PCP Internal Medicine; Visit Provider Surgery | DX: K50.00 Crohn's disease of small intestine without complications (principal) | CPT/HCPCS: 99222; 99231; 99232; 99499 ==

== ENCOUNTER → 2023-12-20 12:41 | Outpatient (BNV) | payer OTHER, SELFPAY | PROVIDERS: Admitting Provider Student in an Organized Health Care Education/Training Program; Emergency Provider Emergency Medicine; PCP Internal Medicine; Visit Provider Internal Medicine Gastroenterology | DX: K52.9 Noninfective gastroenteritis and colitis, unspecified (principal) | CPT/HCPCS: 99223 ==

== ENCOUNTER → 2023-12-20 12:41 | Outpatient (BNV) | payer OTHER, SELFPAY | PROVIDERS: Admitting Provider Student in an Organized Health Care Education/Training Program; Emergency Provider Emergency Medicine; PCP Internal Medicine; Visit Provider Internal Medicine | DX: K50.00 Crohn's disease of small intestine without complications (principal); F39 Unspecified mood [affective] disorder; G92.8 Other toxic encephalopathy; J96.91 Respiratory failure, unspecified with hypoxia; J96.92 Respiratory failure, unspecified with hypercapnia; G47.33 Obstructive sleep apnea (adult) (pediatric); K52.9 Noninfective gastroenteritis and colitis, unspecified | CPT/HCPCS: 99223; 99232; 99239 ==

== ENCOUNTER → 2024-01-13 12:17 | Outpatient (BNVA) | payer MEDICARE, SELFPAY | PROVIDERS: PCP Internal Medicine; Visit Provider Internal Medicine ==

== ENCOUNTER 2024-01-16 10:52 | Outpatient (AMB) | payer MEDICARE, SELFPAY ==
--- NOTE | 2024-01-16 11:04 | A.OFFVIS_ITS ---
Vital Signs 01/16/24 11:13 Height 5 ft 4 in Weight 198 lb 2 oz BMI 34.0 BP 102/53 L Blood Pressure Location Lt brachial Position Sitting Respiration 16 Pulse 76 Pulse Source Pulse Oximeter Pulse Oximetry (%) 96 Oxygen Delivery Method Room Air Intake Visit Reasons: PUMP REFILL Intake Note: Patient comes in for intrathecal medication refill. Reports pain 01/29. Allergies bupropion [From Wellbutrin] Allergy (Intermediate, Verified 01/16/24 11:16) Itching influenza virus vaccine, specific [FLU VACCINE] Allergy (Unknown, Verified 01/16/24 11:16) RASH latex Allergy (Unknown, Verified 01/16/24 11:16) Rash Sulfa (Sulfonamide Antibiotics) Allergy (Unknown, Verified 01/16/24 11:16) UNKNOWN, itch, itching baclofen Allergy (Verified 01/16/24 11:16) twitching, falling down HPI Comments Details: Justa is here today for the refill of the intrathecal pain pump. She denies side effects on clonidine. Last time she stated that clonidine PTM dose gives her at least 50% pain relief. However unfortunately today she said that there is no help from the medication. She also stated that because of bowel obstruction she was admitted to the hospital and did not receive any intrathecal medication boluses while in the hospital. She appears to be interested again in the initiation of the Prialt therapy. Unfortunately it is unlikely the patient will be able to afford the co-pay with Prialt. The medication was refilled today see refill as below. I increased continuous dose of her clonidine in the hope that she will receive better pain relief from the increase the continuous dose of the medication. She also wanted to go for MRI, she is claustrophobic, she went to [facility] and because of the presence of intrathecal pain pump they denied performance of the MRI of the lumbar spine. I told the patient that if they have any questions about MRI compatibility of intrathecal pain pump that may give me a call and I will explain to them all my thoughts on that. Prior: She denies dizziness drowsiness lightheadedness secondary to her medications. She presents herself today with excess of 11 cc of the medication. We discussed situation at hands. I offered her to reprogrammed her machine for 6 applications at equal times every 4 hours of the extra clonidine doses. The patient wants to be able to apply PTM doses on herself. With flexible doses she will lose ability to use PTM. She is also upset to the fact that she needs to walk flexed forward using walker. She states that it has a 63 years old she should not be walking like this. She insists on sending her to MRI and eventually to a neurosurgeon to evaluate her spine. She requests me to increase her PTM doses. I increased it to 26 mg from 20 mg. Her next pump refill in 23 days now. We will have to double the concentration of the medication to 800 micro g of clonidine. She told me that she lost her gabapentin pills. I will prescribe her 1 extra prescription of gabapentin. Prior: results of the trial of intrathecal drug delivery system pain pump. She reported 2 days of 50% pain reduction. She reported that her activities of daily living improved, her mobility remain the same mostly on the account of right hip pain. She had significant right hip arthritis. She received intra- articular hip injections in the past with no result. She requests me to send her for orthopedic surgery consult in relation to THR on the left. As of her pain pump she would like me to schedule her for implantation of intrathecal drug delivery system pain pump. Risks and benefits were carefully explained to the patient. She does not want to continue trialing. She requests me to prescribe her motorized scooter to improve her mobility. I will issue prescription to her on paper. She will bring it to [facility]. She is suffering from postlaminectomy syndrome. She has pain in the lower back with minimal radiation bilaterally. She reports that she had 4 surgeries on her lumbar spine on her x-ray of the lumbar spine there is intradiscal hard underwood at L5-S1 interspace as well as L4-5 interspace and there is also transpedicular screws and rods fusing L4-5 vertebra as. I send her to MRI of the lumbar spine results of which dictated as below. She has multiple changes in the MRI specially above the level of her fusion. She has reversal of spinal lordosis. She has kissing osteophytes of the L1 through L3 and into L4 lumbar vertebra as. Those are most seen on the x-ray which was done for her as well. She has Modic type 1 changes in upper lumbar vertebras. She has minimal facet arthritis and ligamentum flavum thickening. There is no spinal canal or foraminal stenosis on any levels. Therefore I think that this patient is suffering from postlaminectomy syndrome. I would like to consider neuromodulation for her including pain pump and spinal cord stimulator. She past psych evaluation. She has negative about spinal cord stimulation and insisted on intrathecal drug delivery system pain pump. Also there is significant Modic changes which could be addressed with intracept procedure. All this options were again given to the patient. She would like to proceed with bupivacaine pain pump. The patient after consideration decided that she wants to go for the pain pump. She adamantly refused to try spinal cord stimulator. She said that she had spinal cord stimulator in the past and it did not work for her. I offered her also intrasept procedure but she adamantly refused to go for intracept as well. She is on Suboxone for OUD. Risks and benefits of the procedure were explained today to the patient. The patient will be scheduled for trial. [facility] Medical History (Updated 01/04/24 @ 00:02 by Nargis Arreguin) Obstructive sleep apnea Mood disorder Ileitis Vasomotor symptoms due to menopause Impaired fasting glucose Smoker unmotivated to quit Cough present for greater than 3 weeks Hair thinning Prolapse of female pelvic organs Bilateral finger arthralgia Coccyx pain Diabetes mellitus with diabetic neuropathy, without long-term current use of insulin Pain or burning when swallowing Heartburn Hepatomegaly Osteoarthritis, hip, bilateral Bilateral hip pain Lumbar spondylosis Bilateral groin pain Depressive 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 History of pneumonia Vitamin B12 deficiency Vitamin D deficiency Insomnia ADHD Community acquired bilateral lower lobe pneumonia Injury of left heel Cough Cigarette smoker motivated to quit Dysuria Left shoulder pain Dyslipidemia Low back pain Lumbar degenerative disc disease Mixed incontinence urge and stress TEA on CPAP Opiate addiction Depression COPD (chronic obstructive pulmonary disease) Surgical History H/O neck surgery Status post sleeve gastrectomy History of lumbar spinal fusion H/O colonoscopy Hx of cholecystectomy History of partial hysterectomy H/O tubal ligation History of lumbar fusion Family History Father Aneurysm Other No family history of cancer Social History Household Members: Family Household Members Other:: daughter Housing: House Are you a primary critical care clinical nurse specialist to a significant other at home: No Do you presently have visiting nurse or other home services: No Alcohol intake: never Comment: NOT INDICATED Patient Tobacco Use Status: Current everyday Tobacco user Tobacco use type: Cigarette Cigarettes Per Day: 10 e-Cigarette/Vaping Use: Currently Using Second Hand Smoke Exposure: Yes service: No Current occupational status: unemployed Cognitive needs: Yes (walker) Hearing needs: No Vision needs: Yes (glasses) Review of Systems Const All systems reviewed & are unremarkable except as noted in HPI and below Physical Exam Vital Signs: Last Vital Signs Pulse 76 01/16/24 11:13 Resp 16 01/16/24 11:13 BP 102/53 L 01/16/24 11:13 Pulse Ox 96 01/16/24 11:13 Oxygen Delivery Method Room Air 01/16/24 11:13 BMI result Body Mass Index 34.0 Const General: cooperative, alert, awake, in distress (due to pain) mild and moderate and anxious Nutritional Appearance: obese morbidly obese Limitations: ambulation with walker HEENT Head: Yes normal to inspection, Yes normocephalic and No occipital foramen tenderness Ears: hearing grossly normal bilaterally and external ears normal Face and sinus: Yes normal facial exam and Yes face symmetric Eyes General: appearance normal, both eyes and all related structures Visual Evangelista: normal visual evangelista by confrontation EOM: EOMs intact bilaterally Neck Neck: Yes normal visual inspection, Yes full ROM, Yes no lymphadenopathy, Yes supple, No anterior neck swelling and Yes no JVD Chest Chest palpation & inspection: normal inspection of the chest Resp Effort & Inspection: normal respiratory effort, able to speak in complete sentences, no audible wheezes, no cough, no respiratory distress and symmetric chest movement Cardio Jugular venous distension: no JVD Bruits: no carotid bruits Peripheral pulses: radial pulses present, posterior tibial pulses present and dorsalis pedis present GI Inspection: Yes normal to inspection, No distended, Yes Abdominal panniculus present and Yes obesity Palpation (GI): Soft to palpation and nontender General: Yes no CVA tenderness Back/Spine/Pelvis Other: Limited exam due to significant back and groin pain with movements or walking, able to stand on heels and tip toes with moderate difficulty due to pain. Can flex forward up to 50-60 degrees and extend to 5-10 degrees before experiencing moderate lumbar pain. Facet loading positive bilaterally, ROM limited to pain. Demonstrates 4/5 strength of quadriceps bilaterally as well as flexion/dorsiflexion of bilateral feet against resistance. 2+ pedal pulses bilaterally. Straight leg rise with dorsiflexion positive on the left. Significant groin pain with bilateral internal and external hip rotations. Antalgic gate, ambulates slowly with walker. Lateral and medial left hip rotation causes significant groin discomfort. The patient also reports groin pain with walking Back: no CVA tenderness Cervical Spine: cervical ROM normal Thoracic/Lumbar Spine: thoracic and lumbar spine normal to inspection, Thoracic/lumbar spine scar(s), Lasegue's sign positive, pain with thoraco-lumbar ROM, paraspinal muscle tenderness, thoraco-lumbar ROM limited with forward flexion (WNL) and with lateral flexion to the left (limited by pain) and straight leg raise positive left other (at 20 degrees) Pelvis: pain with anterior-posterior compression, pain with lateral compression, buttock tenderness bilaterally and no sciatic notch tenderness Skin General skin exam: no rashes or lesions noted Extrem General: Yes full ROM, Yes capillary refill normal, Yes no clubbing, cyanosis or edema and Yes no calf tenderness Psych Appearance: grossly normal Mental Status: mental status grossly normal Speech and movement: Normal speech and movement present, Pressured speech present and Psychomotor agitation in speech present Affect: normal affect and Irritable affect present Attitude: cooperative and Avoids eye contact (attititude/behavior) Thought process: Normal thought process present and Circumstantial thought process present Thought content: Normal thought content present Assessment & Plan Assessment & Plan (1) Low back pain: Code(s): M54.5 - Low back pain Category: Medical Qualifiers: Back pain laterality: bilateral Chronicity: chronic Sciatica presence: without sciatica Qualified Code(s): M54.50 - Low back pain, unspecified; G89.29 - Other chronic pain Plan: Patient with chronic pain syndrome related to arthritis and degenerative changes of her lumbar spine, s/p 5 back surgeries with lumbar fusion. MRI demonstrated no No spinal canal stenosis. The vertebras above the fusion are demonstrating Modic 1 type changes which could be another pain generator for her. She reports most significant pain when she is laying in bed. She is adamantly negative about intercept procedure. She insisted sending her for yet another MRI and send her for evaluation with neurosurgeon. I referred her to Dr. Eduardo. Unfortunately she is claustrophobic and could go to MRI only to [facility], however [facility] refused patient to have an MRI because of the presence of intrathecal pain pump. If it is the reason I can explain them than they are wrong, requested patient to request the facility to give me a call and I will give them appropriate explanations. I personally connected with [facility] and we will be faxing them the information about intrathecal pain pump to perform this MRI finally. (2) Osteoarthritis of right hip: Code(s): M16.11 - Unilateral primary osteoarthritis, right hip Category: Medical (3) Postlaminectomy syndrome: Code(s): M96.1 - Postlaminectomy syndrome, not elsewhere classified Category: Medical (4) Chronic pain syndrome: Code(s): G89.4 - Chronic pain syndrome Category: Medical Plan: (5) Thrombocytopenia: Code(s): D69.6 - Thrombocytopenia, unspecified Category: Medical Plan: Today there is no discrepancy between the pump and the obtain medications. Plan Intrathecal pump refill. The patient came today to the office to change medication in her pain pump. Today she will be refilled with 20 cc of clonidine 800 micro g per mL The pump was interrogated and the residual amount of fluid was found to be 12 mL. SHE WAS POSITIONED prone on the bed AND THE AREA OF THE INTRATHECAL PUMP WAS PREPPED WITH CHLORAPREP. The fenestrated drape was sterilely applied over the area of the pump. Sterile gloves were worn and of the aspiration system was assembled containing 2 in 22 gauge noncoring needle, the needle was connected to extension tubing which was connected to the 20 cc sterile syringe. The pain pump was palpated under the skin in the patient's right buttock area. The needle was inserted through the skin and the central plug of the pain pump and fluid was aspirated. The clear fluid was going into the syringe the total amount of the fluid was 12 mL .. After that a new batch? of medication was obtained which was containing clonidine 800 micro g per mL. The admixture was made in 20 cc syringe prepared by [facility] compounding pharmacy. The syringe was connected to the bacterial filter, and then connected to the extension tubing. After that the medication in the syringe was slowly instilled into the pump with aspirations at 15 and 5 cc [place].? The pump was reprogrammed for the continues doses of clonidine micro g a day as well as clonidine 32 micro g on demand PTM doses 6 times a day once in 4. hours. Patient Instructions: I here by testify that I spent 45 minutes in conversation with this patient as well as in conversation with diagnostic facility as well as planning her care and organizing this note. Coding Level of Care Code Est Pt Level 5 (27264) Procedure Only Diagnoses Low back pain M54.50; G89.29 Back pain laterality: bilateral Chronicity: chronic Sciatica presence: without sciatica Osteoarthritis of right hip M16.11 Postlaminectomy syndrome M96.1 Chronic pain syndrome G89.4 Thrombocytopenia D69.6
[2024-01-16 11:13] VITALS: BP 102/53; PULSE 76; RESP 16; O2SAT 96; BMI 34.0
== END 2024-01-16 11:38 | disposition home or self-care (01) ==
PROVIDERS: PCP Internal Medicine; Visit Provider Anesthesiology
DX: G89.4 Chronic pain syndrome (principal); M54.50 Low back pain, unspecified; M16.11 Unilateral primary osteoarthritis, right hip; M96.1 Postlaminectomy syndrome, not elsewhere classified; Z45.1 Encounter for adjustment and management of infusion pump; D69.6 Thrombocytopenia, unspecified
CPT/HCPCS: 62370; 99215

== ENCOUNTER → 2024-01-16 10:52 | Outpatient (BNVA) | payer MEDICARE, SELFPAY | PROVIDERS: PCP Internal Medicine; Visit Provider Anesthesiology | DX: M54.50 Low back pain, unspecified (principal); G89.29 Other chronic pain; M16.11 Unilateral primary osteoarthritis, right hip; M96.1 Postlaminectomy syndrome, not elsewhere classified; G89.4 Chronic pain syndrome; D69.6 Thrombocytopenia, unspecified; Z45.1 Encounter for adjustment and management of infusion pump | CPT/HCPCS: 62370; 99212 ==

== ENCOUNTER → 2024-02-10 10:25 | Outpatient (BNVA) | payer MEDICARE, SELFPAY | PROVIDERS: PCP Internal Medicine; Visit Provider Internal Medicine | DX: E66.811 Obesity, class 1 (principal); Z68.34 Body mass index [BMI] 34.0-34.9, adult; E11.40 Type 2 diabetes mellitus with diabetic neuropathy, unspecified; Z78.9 Other specified health status; G47.33 Obstructive sleep apnea (adult) (pediatric); Z71.3 Dietary counseling and surveillance | CPT/HCPCS: 99212 ==

== ENCOUNTER 2024-02-10 11:58 | Outpatient (AMB) | payer MEDICARE, SELFPAY ==
[2024-02-10 12:09] VITALS: BP 120/70; PULSE 80; O2SAT 97; BMI 34.7
--- NOTE | 2024-02-10 12:09 | A.OFFPC_ITS ---
Vital Signs 02/10/24 12:09 Height 5 ft 4 in Weight 202 lb BMI 34.7 BP 120/70 Blood Pressure Location Lt brachial Position Sitting Pulse 80 Pulse Source Pulse Oximeter Pulse Oximetry (%) 97 Oxygen Delivery Method Room Air Intake Visit Reasons: discuss wgt loss med Intake Note: Pt is here today to discuss wgt loss medication Allergies bupropion [From Wellbutrin] Allergy (Intermediate, Verified 02/10/24 12:22) Itching influenza virus vaccine, specific [FLU VACCINE] Allergy (Unknown, Verified 02/10/24 12:22) RASH latex Allergy (Unknown, Verified 02/10/24 12:22) Rash Sulfa (Sulfonamide Antibiotics) Allergy (Unknown, Verified 02/10/24 12:22) UNKNOWN, itch, itching baclofen Allergy (Verified 02/10/24 12:22) twitching, falling down Medication List - Last Reconciled 02/10/24 by Melissa Topete MD albuterol sulfate 90 mcg/actuation (Ventolin HFA) 2 puffs PO QID PRN buprenorphine-naloxone 8-2 mg (Suboxone) 1 film buccal DAILY@1400 clotrimazole 1% 1 appl topical BID dextroamphetamine-amphetamine 10 mg 1 tab PO DAILY@1200 dextroamphetamine-amphetamine 30 mg 30 mg PO BID@0900,1500 gabapentin 400 mg (1/2 x 800 mg) PO TID 30 days linaclotide (Linzess) 290 mcg PO DAILY nicotine 1 patch topical DAILY nicotine (polacrilex) 4 mg buccal BID pantoprazole 40 mg PO DAILY@0630 risperidone 3 mg PO BEDTIME rosuvastatin 5 mg PO DAILY sertraline 200 mg PO DAILY Tobacco use date assessed: 02/10/24 Dental Screening Dental Screen Date: 02/10/24 Did you have a dental visit in the last 12 months?: Yes Did you have a dental problem in the last 6 months where you did not have access to dental care?: Yes Was dental information given to patient?: Patient has dentist HPI discuss wgt loss med HPI Details 63-year-old lady with diabetes mellitus and obesity, here today wanting to see if she can be started on medication that helps her lose weight. She states that she checked with her insurance and that they would cover Wegovy . She has tried several diets, but unable to sustain it, to exercise much due to her joint pains and low back pain. She also has been diagnosed with obstructive sleep apnea in the past, but was unable to tolerate using the CPAP, and requesting to be prescribed Inspire Upper Airway Stimulation (UAS) system. Her sleep study however has been several years ago need a referral back to the sleep clinic [facility] Medical History (Updated 02/16/24 @ 18:51 by Melissa Topete MD) Obstructive sleep apnea hypopnea, moderate Claustrophobia Intolerance of continuous positive airway pressure (CPAP) ventilation Obesity (BMI 30.0-34.9) Obstructive sleep apnea Mood disorder Ileitis Smoker unmotivated to quit Prolapse of female pelvic organs Diabetes mellitus with diabetic neuropathy, without long-term current use of insulin Heartburn Osteoarthritis, hip, bilateral Depressive 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 Vitamin D deficiency Insomnia ADHD Cigarette smoker motivated to quit Dyslipidemia Lumbar degenerative disc disease Mixed incontinence urge and stress TEA on CPAP Opiate addiction Depression COPD (chronic obstructive pulmonary disease) Surgical History H/O neck surgery Status post sleeve gastrectomy History of lumbar spinal fusion H/O colonoscopy Hx of cholecystectomy History of partial hysterectomy H/O tubal ligation History of lumbar fusion Family History Father Aneurysm Other No family history of cancer Social History Household Members: Family Household Members Other:: daughter Housing: House Are you a primary transition of care specialist to a significant other at home: No Do you presently have visiting nurse or other home services: No Alcohol intake: never Comment: NOT INDICATED Patient Tobacco Use Status: Former Tobacco user Tobacco use type: Cigarette Cigarettes Per Day: 10 e-Cigarette/Vaping Use: Currently Using Second Hand Smoke Exposure: Yes service: No Current occupational status: unemployed Cognitive needs: Yes (walker) Hearing needs: No Vision needs: Yes (glasses) Questionnaire PHQ-9 Over the last 2 weeks, how often have you been bothered by any of the following problems? 1. Little interest or pleasure in doing things: nearly every day 2. Feeling down, depressed, or hopeless: not at all 3. Trouble falling or staying asleep, or sleeping too much: not at all 5. Poor appetite or overeating: not at all 6. Feeling bad about yourself - or that you are a failure or have let yourself or your family down: not at all 7. Trouble concentrating on things, such as reading the newspaper or watching television: not at all 8. Moving or speaking so slowly that other people could have noticed. Or the opposite - being so fidgety or restless that you have been moving around a lot more than usual: not at all 9. Thoughts that you would be better off or of hurting yourself in some way: not at all Depression Screening Interpretation: Negative Depression Screening Done: Yes Source: Developed by Drs. Mark Cota, Alva Ghotra, Adis Kramer and colleagues, with an educational adeel from [employer]. Thrive Questionnaire Date Thrive assessed: 12/23/23 I am a: Patient What is your living situation today?: I have a steady place to live Within the past 12 months, did the food you bought not last and you didn't have the money to get more?: Never true Within the past 12 months, did you worry whether your food would run out before you got money to buy more?: Never true Do you have trouble paying for medicines?: No Do you have trouble getting transportation to medical appointments?: No Do you have trouble paying your heating and electricity bill?: No Do you have trouble taking care of your child, family member or friend?: No Do you have trouble with day-to-day activities such as bathing, preparing meals, shopping, managing finances, etc.?: No Are you currently unemployed and looking for a job?: No Are you interested in more education?: No Please select the resources that you would like help with: None Currently or been in a relationship where the following occur: No concerns reported THRIVE Score: 0 AUDIT C Alcohol Use Questionnaire (AUDIT-C) 1. How often do you have a drink containing alcohol?: Never Total Score: 0 AMANDA-7 AMB Questionnaire AMANDA-7 Date AMANDA - 7 assessed: 06/28/23 Feeling nervous, anxious, or on edge: 0 = Not at all Not being able to stop or control worryin = Not at all Worrying too much about different things: 0 = Not at all Trouble relaxin = Nearly every day Being so restless that it is hard to sit still: 3 = Nearly every day Becoming easily annoyed or irritable: 0 = Not at all Feeling afraid as if something awful might happen: 0 = Not at all Total AMANDA-7 score (0-4 normal; 5-9 mild; 10-14 moderate; 15-21 severe): 6 Source: Developed by Drs. Mark Cota, Alva Ghotra, Adis Kramer and colleagues, with an educational adeel from [employer]. Review of Systems Const Reports as per HPI ENT Denies dysphagia and Denies sinus pain Card Denies chest pain, Denies irregular heart rhythm, Denies lightheadedness and Denies dyspnea Resp Reports as per HPI, Denies chest congestion and Denies dyspnea GI Denies abdominal pain and Denies dysphagia Reports urinary incontinence Musc Reports arthralgias and Reports stiffness Neuro Reports no additional complaints Endo Reports no additional complaints Aaron/Lymph Reports no additional complaints Physical exam (Primary Care) Vital Signs: Last Vital Signs Pulse 80 02/10/24 12:09 BP 120/70 02/10/24 12:09 Pulse Ox 97 02/10/24 12:09 Oxygen Delivery Method Room Air 02/10/24 12:09 BMI result Body Mass Index 34.7 Tobacco/Smoking Status: Tobacco use Status Tobacco use date assessed 02/10/24 02/10/24 12:16 Patient Tobacco Use Status Former Tobacco user 02/10/24 12:16 Tobacco use type Cigarette 02/10/24 12:16 e-Cigarette/Vaping Use Currently Using 02/10/24 12:16 Depression Screening Interpretation: Negative Thrive Assessment: Date of Thrive Assessment Date Thrive assessed 12/23/23 02/10/24 12:16 Currently or been in a relationship where the following occur: No concerns reported Const General: comfortable and no acute distress Nutritional Appearance: obese Orientation/consciousness: patient oriented x3 HENMT Mouth: Normal oral and palatal mucosa present and moist mucous membranes Neck Neck: Yes full ROM, Yes no lymphadenopathy and Yes supple Resp Effort & Inspection: normal respiratory effort and able to speak in complete sentences Auscultation: clear to auscultation bilaterally Cardio Other: S1-S2 present regular rate and rhythm GI Other: Normal bowel sounds soft, nontender with no mass palpated Neuro General: patient oriented x3, tone normal and no focal motor deficits Coding Level of Care Code Est Pt Level 4 (11059) Complex EM visit Add On G2211 Diagnoses Diabetes mellitus with diabetic neuropathy, without long-term current use of insulin E11.40 Obesity (BMI 30.0-34.9) E66.811 Intolerance of continuous positive airway pressure (CPAP) ventilation Z78.9 Obstructive sleep apnea hypopnea, moderate G47.33 Assessment & Plan Assessment & Plan (1) Diabetes mellitus with diabetic neuropathy, without long-term current use of insulin: Code(s): E11.40 - Type 2 diabetes mellitus with diabetic neuropathy, unspecified Category: Medical Plan: Reinforced importance of following recommended diet will start on Wegovy 0.25 mg per injection to be administered subcutaneously once a week, patient is on proper use of medication in given to patient, reinforced importance of combining this with adherence to healthy eating habits and staying active. Her back for follow-up in 4 weeks after starting medication (2) Obesity (BMI 30.0-34.9): Code(s): E66.811 - Obesity, class 1 Category: Medical Plan: Started on Wegovy 0.25 mg as directed (3) Intolerance of continuous positive airway pressure (CPAP) ventilation: Code(s): Z78.9 - Other specified health status Category: Medical Plan: Referred to sleep clinic for re-evaluation (4) Obstructive sleep apnea hypopnea, moderate: Code(s): G47.33 - Obstructive sleep apnea (adult) (pediatric) Category: Medical Plan: Referred to sleep clinic at [facility] for re-evaluation of sleep apnea and see if she is qualified to be prescribed inspire Orders: Orders Hemoglobin A1c Today E11.40 - Type 2 diabetes mellitus with diabetic neuropathy, unspecified Microalbumin, Random (w Creat) Today E11.40 - Type 2 diabetes mellitus with diabetic neuropathy, unspecified Referrals Sleep Medicine Referral F40.240 - Claustrophobia, G47.33 - Obstructive sleep apnea (adult) (pediatric), Z78.9 - Other specified health status Medications: New semaglutide (weight loss) (Wegovy) administer weeks 1 through 4 of therapy 0.25 mg (0.5 mL) subcut QWEEK 30 days 2 mL 2RF E11.40 - Type 2 diabetes mellitus with diabetic neuropathy, unspecified, E66.811 - Obesity, class 1
== END 2024-02-10 12:38 | disposition home or self-care (01) ==
PROVIDERS: PCP Internal Medicine; Visit Provider Internal Medicine
DX: E11.40 Type 2 diabetes mellitus with diabetic neuropathy, unspecified (principal); E66.811 Obesity, class 1; Z68.34 Body mass index [BMI] 34.0-34.9, adult; Z78.9 Other specified health status; G47.33 Obstructive sleep apnea (adult) (pediatric)

== ENCOUNTER 2024-03-09 13:01 | Outpatient (AMB) | payer MEDICARE, SELFPAY ==
--- NOTE | 2024-03-09 13:03 | HO.SPINEOV ---
Intake Visit Reasons: MRI follow up Intake Note: Ms. Larsen is here today to F/u on the results of her MRI. Cpa Tax Required: No Allergies bupropion [From Wellbutrin] Allergy (Intermediate, Verified 03/09/24 13:06) Itching influenza virus vaccine, specific [FLU VACCINE] Allergy (Unknown, Verified 03/09/24 13:06) RASH latex Allergy (Unknown, Verified 03/09/24 13:06) Rash Sulfa (Sulfonamide Antibiotics) Allergy (Unknown, Verified 02/10/24 12:22) UNKNOWN, itch, itching baclofen Allergy (Verified 03/09/24 13:06) twitching, falling down Assessment & Plan Assessment & Plan (1) Low back pain: Code(s): M54.5 - Low back pain Category: Medical Qualifiers: Back pain laterality: bilateral Chronicity: chronic Sciatica presence: without sciatica Qualified Code(s): M54.50 - Low back pain, unspecified; G89.29 - Other chronic pain Plan Justa comes in today for a subsequent follow up appointment to discuss her MRI results, which she had completed on 02/11/24. She reports that she has continued to have severe low back pain and has been ambulating hunched over with a walker since I saw her last. She is currently on a Clonidine pain pump, and is now only taking Gabapentin monotherapy for the pain per her report (previously on Suboxone as well). She has a Hx of [address] surgeries with [address] Quezada at [facility] as reported in my previous note. She never had resolution of her back pain despite these surgeries. On MRI imaging she does have a kyphotic deformity in her lumbar spine which corresponds well to her hunched over appearance with ambulation. She states that she desperately wants surgery to correct this deformity. I informed her that having surgery to correct this would most likely involve breaking the osteophyte bridges that are notable on her CT abdomen and pelvis completed in November of this year here at [facility]. Not only that, it is unclear if further fusion would relieve her back pain or he had her with ambulation. The most that I could really discuss with her was the likelihood that it would straighten out her posture, thereby perhaps making her able to ambulate better. I will review her imaging with Dr. Eduardo and call her back early next week with the plan. I informed her that it is not highly likely that he would proceed with a breaking her osteophyte bridging to correct the kyphotic deformity. Jamie Eduardo MD,PhD [facility] Coding Level of Care Code Est Pt Level 3 (75954) Diagnoses Low back pain M54.50; G89.29 Back pain laterality: bilateral Chronicity: chronic Sciatica presence: without sciatica
== END 2024-03-09 13:27 | disposition home or self-care (01) ==
PROVIDERS: PCP Internal Medicine; Visit Provider Physician Assistant
DX: M54.50 Low back pain, unspecified (principal); G89.29 Other chronic pain
CPT/HCPCS: 99213

== ENCOUNTER → 2024-03-09 13:01 | Outpatient (BNVA) | payer MEDICARE, SELFPAY | PROVIDERS: PCP Internal Medicine; Visit Provider Physician Assistant | DX: M54.50 Low back pain, unspecified (principal); G89.29 Other chronic pain | CPT/HCPCS: 99212 ==

== ENCOUNTER 2024-03-11 12:16 | Outpatient (REF) | payer MEDICARE, SELFPAY | END 2024-03-11 12:17 | disposition home or self-care (01) | LOC: HO.HOSX 12:16 | PROVIDERS: Visit Provider Physician Assistant | DX: Z13.89 Encounter for screening for other disorder (principal) ==

== ENCOUNTER 2024-03-12 15:13 | Outpatient (REF) | payer MEDICARE, SELFPAY ==
--- NOTE | ~2024-03-12 | CT_ITS ---
EXAMINATION: CT LUMBAR SPINE WITHOUT CONTRAST CLINICAL INFORMATION: [Intervertebral disc degeneration, lumbar spine COMPARISON: CT dated July 28, 2021 TECHNIQUE: Contiguous axial images through the lumbar spine from T12 to S1 using 2 mm collimation with bone and soft tissue algorithm. Sagittal and coronal reformatted images acquired. This CT examination was performed using dose optimization techniques as appropriate, variously including the following: *Automated exposure control *Adjustment of mA and/or kV according to patient size (this includes techniques or standardized protocols for targeted exams where dose is matched to indication/reason for exam; i.e. extremities or head) *Use of iterative reconstruction technique DLP; 1288 mGy-cm FINDINGS: Last rib-bearing vertebra labeled T12. Status post posterior fusion through the transplant pedicle screws at L4 and L5, bilaterally. Status post anterior intervertebral disc spacer placement at L4-5 and L5-S1 contained within the vertebral bodies margins. Multilevel marginal osteophyte formation, endplate sclerosis, subchondral cyst formation and intervertebral disc height with vacuum phenomenon at L2-3 and L3-4 level. Vacuum phenomenon and marginal osteophyte formation with decreased intervertebral disc height at T11-12 and T12-L1. Reverse curvature with the kyphotic apex morphology at L2-3. Grade 1 anterolisthesis T12-L1. Intraspinal electrode entering at the dorsal aspect of L2-3 in the thoracic spine, deep is not depicted in the exam. No acute cortical disruption. T10-11: No gross central spinal canal stenosis. T11-12: Facet joint hypertrophy. No central spinal canal stenosis. T12-L1: Facet joint hypertrophy. Reduced AP diameter of the central spinal canal. L1-2: Facet joint hypertrophy bilaterally. Reduced AP diameter of the central spinal canal. L2-3: Facet joint hypertrophy. Reduced AP diameter of the central spinal canal. L3-4: Facet joint hypertrophy. [place]-shaped calcification along the medial aspect of the left facet. Reduced AP diameter of the central spinal canal. L4-5: Post surgical changes. There is being hardening artifact secondary to metallic hardware. L5-S1: Postsurgical changes and metallic beam hardening artifact. Facet joint hypertrophy bilaterally. Fatty atrophy of the lower lumbar muscles. No gross fluid collections within the prevertebral compartment. Sutures along the lateral wall of stomach. Status post cholecystectomy. Metallic reservoir in the left gluteal region resulting in beam hardening artifact. No hydronephrosis or gross nephrolithiasis. CT/CT lumbar spine wo IV con IMPRESSION: Multilevel thoracolumbar spondylosis resulting in kyphotic deformity at L2-3, grade 1 anterolisthesis T12-L1 and multilevel central spinal canal stenosis more conspicuous at L1 to, L2-3 and L3-4 levels. No acute fracture. Electronically signed by: Rachid Bravo MD 03/13/2024 08:04 AM GRETCHEN
== END 2024-03-12 15:14 | disposition home or self-care (01) ==
LOC: HO.CT 15:13
PROVIDERS: PCP Internal Medicine; Visit Provider Physician Assistant
DX: M51.360 Other intervertebral disc degeneration, lumbar region with discogenic back pain only (principal)
CPT/HCPCS: 72131

== ENCOUNTER → 2024-03-12 15:15 | Outpatient (BNV) | payer MEDICARE, SELFPAY | PROVIDERS: PCP Internal Medicine; Visit Provider Radiology Diagnostic Radiology | DX: M47.895 Other spondylosis, thoracolumbar region (principal); M48.05 Spinal stenosis, thoracolumbar region | CPT/HCPCS: 72131 ==

== ENCOUNTER 2024-04-06 16:05 | Outpatient (REF) | payer MEDICARE, SELFPAY | END 2024-04-06 16:06 | disposition home or self-care (01) | LOC: HO.LAB 16:05 | PROVIDERS: PCP Internal Medicine | DX: R30.0 Dysuria (principal); N30.00 Acute cystitis without hematuria; G89.4 Chronic pain syndrome | CPT/HCPCS: 81003; 87086; 87088; 87186; 99212 ==

== ENCOUNTER 2024-04-06 16:05 | Outpatient (AMB) | payer MEDICARE, SELFPAY ==
[2024-04-06 16:07] VITALS: BP 122/84; PULSE 95; TEMP 36.5; O2SAT 99; BMI 34.3
--- NOTE | 2024-04-06 16:07 | MHC.OFFWIV ---
Intake Vital Signs 04/06/24 16:07 Height 5 ft 4 in Weight 200 lb BMI 34.3 BP 122/84 Blood Pressure Location Lt brachial Position Sitting Pulse 95 Pulse Source Pulse Oximeter Temp 97.7 F Temp Source Temporal Artery Scan Pulse Oximetry (%) 99 Oxygen Delivery Method Room Air Intake Visit Reasons: EP Sharp stomach/LT leg/lower back pain Intake Note: Pt presents to the office today for c/o sharp stomach pain x2 days,left leg pain x1 week. Pt states she has issues with her back but states she just can't bear the pain now. Patient Tobacco Use Status: Current everyday Tobacco user Allergies bupropion [From Wellbutrin] Allergy (Intermediate, Verified 04/06/24 16:09) Itching influenza virus vaccine, specific [FLU VACCINE] Allergy (Unknown, Verified 04/06/24 16:09) RASH latex Allergy (Unknown, Verified 04/06/24 16:09) Rash Sulfa (Sulfonamide Antibiotics) Allergy (Unknown, Verified 04/06/24 16:09) UNKNOWN, itch, itching baclofen Allergy (Verified 04/06/24 16:09) twitching, falling down HPI EP Sharp stomach/LT leg/lower back pain HPI Details This note is constructed using voice recognition software. While every effort has been made to ensure accuracy, assurance senior manager errors may have been included. The patient is a 63 year old postmenopausal female who presents to the clinic today with urinary burning, frequency for the past 2 days. She also notes that she is having left leg pain for the past week, which she attributes to her chronic low back pain. She has a specialist for this. She had did request Vicodin from this provider for the back pain. She initially stated that she has been taking ibuprofen, but then advised that she has not been taking it for the past few days as she has run out. She is currently taking gabapentin for her back, she does not feel that this is resolving her symptoms. She denies any specific injury to the back. [facility] Medical History (Updated 03/11/24 @ 12:17 by ALON Knapp) Obstructive sleep apnea hypopnea, moderate Claustrophobia Intolerance of continuous positive airway pressure (CPAP) ventilation Obesity (BMI 30.0-34.9) Obstructive sleep apnea Mood disorder Ileitis Smoker unmotivated to quit Prolapse of female pelvic organs Diabetes mellitus with diabetic neuropathy, without long-term current use of insulin Heartburn Osteoarthritis, hip, bilateral Depressive 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 Vitamin D deficiency Insomnia ADHD Cigarette smoker motivated to quit Dyslipidemia Lumbar degenerative disc disease Mixed incontinence urge and stress TEA on CPAP Opiate addiction Depression COPD (chronic obstructive pulmonary disease) Surgical History H/O neck surgery Status post sleeve gastrectomy History of lumbar spinal fusion H/O colonoscopy Hx of cholecystectomy History of partial hysterectomy H/O tubal ligation History of lumbar fusion Family History Father Aneurysm Other No family history of cancer Social History Household Members: Family Household Members Other:: daughter Housing: House Are you a primary critical care nurse practitioner to a significant other at home: No Do you presently have visiting nurse or other home services: No Alcohol intake: never Comment: NOT INDICATED Patient Tobacco Use Status: Current everyday Tobacco user Tobacco use type: Cigarette Cigarettes Per Day: 10 e-Cigarette/Vaping Use: Currently Using Second Hand Smoke Exposure: Yes service: No Current occupational status: unemployed Cognitive needs: Yes (walker) Hearing needs: No Vision needs: Yes (glasses) Review of Systems Const All systems reviewed & are unremarkable except as noted in HPI and below Physical Exam Vital Signs: Last Vital Signs Temp 97.7 F 04/06/24 16:07 Pulse 95 04/06/24 16:07 BP 122/84 04/06/24 16:07 Pulse Ox 99 04/06/24 16:07 Oxygen Delivery Method Room Air 04/06/24 16:07 BMI result Body Mass Index 34.3 Const General: cooperative, healthy appearing, comfortable, no acute distress and alert Orientation/consciousness: patient oriented x3 Limitations: no limitations Resp Effort & Inspection: normal respiratory effort and able to speak in complete sentences Other: Deferred General: Yes no CVA tenderness Back/Spine/Pelvis Other: Lower back tenderness across. Patient walking hunched over. Positive SLR on left, negative SLR. Able to climb up on table. Back: no CVA tenderness Skin General skin exam: no rashes or lesions noted, elasticity normal and turgor normal Neuro General: patient oriented x3 Psych Appearance: grossly normal Mental Status: mental status grossly normal Speech and movement: Normal speech and movement present Affect: normal affect Results AMB Urinalysis, Automated UA Leukoctes 70 Joanna/uL Last Edit by Hannah Agustin CMA on 04/06/24 16:24 UA Nitrite Negative Last Edit by Hannah Agustin, FRANK on 04/06/24 16:24 UA Urobilinogen 0.2 mg/dL Last Edit by Hannah Agustin, FRANK on 04/06/24 16:24 UA Protein 15 mg/dL Last Edit by Hannah Agustin, FRANK on 04/06/24 16:24 UA pH 8.0 Last Edit by Hannah Agustin, FRANK on 04/06/24 16:24 UA Blood 10 Benjamin/uL Last Edit by Hannah Agustin, FRANK on 04/06/24 16:24 UA Specific [place] 1.010 Last Edit by Hannah Agustin, FRANK on 04/06/24 16:24 UA Ketone Negative Last Edit by Hannah Agustin CMA on 04/06/24 16:24 UA Bilirubin 0 mg/dL Last Edit by Hannah Agustin CMA on 04/06/24 16:24 UA Glucose 0 mg/dL Last Edit by Hannah Agustin CMA on 04/06/24 16:24 Assessment & Plan Assessment & Plan (1) UTI (urinary tract infection): Code(s): N39.0 - Urinary tract infection, site not specified Qualifiers: Hematuria presence: without hematuria Urinary tract infection type: acute cystitis Qualified Code(s): N30.00 - Acute cystitis without hematuria Plan: Supportive measures encouraged and reviewed. Urine culture and sensitivity sent to confirm. Antibiotic sent to requested pharmacy, advised patient to take antibiotics until completed and not to stop if feeling better, unless the patient has side effects. Advised patient to follow up with primary care provider with worsening or failure to resolve. (2) Chronic pain syndrome: Code(s): G89.4 - Chronic pain syndrome Plan: Prescription ibuprofen sent to requested pharmacy per patient request for chronic pain. Advised patient to follow with her specialist for ongoing treatment. Likely she may be experiencing some form sciatica in addition to her chronic pain. Elected to defer muscle relaxer due to use of gabapentin. May benefit from physical therapy, patient advised to follow up with PCP. Plan See above for full details and plan. Orders: Orders AMB Urinalysis Automated Today R30.0 - Dysuria Urine Culture Today R30.0 - Dysuria Medications: New ibuprofen 800 mg PO Q8H PRN 20 tabs 0RF pain nitrofurantoin monohyd/m-cryst 100 mg must administer with a meal/food 100 mg PO Q12H 5 days 10 caps 0RF Coding Level of Care Code Est Pt Level 3 (07271) Diagnoses UTI (urinary tract infection) N30.00 Hematuria presence: without hematuria Urinary tract infection type: acute cystitis Chronic pain syndrome G89.4
== END 2024-04-06 16:44 | disposition home or self-care (01) ==
PROVIDERS: PCP Internal Medicine; Visit Provider Registered Nurse
DX: N30.00 Acute cystitis without hematuria (principal); G89.4 Chronic pain syndrome; R30.0 Dysuria

== ENCOUNTER 2024-04-16 13:22 | Outpatient (AMB) | payer MEDICARE, SELFPAY ==
--- NOTE | 2024-04-16 13:09 | A.OFFVIS_ITS ---
VS Expanded 04/16/24 13:11 Height 5 ft 4 in Weight 202 lb BMI 34.7 Intake Visit Reasons: (TELEPHONE) PO LSG 10/24/21 Allergies bupropion [From Wellbutrin] Allergy (Intermediate, Verified 04/06/24 16:09) Itching influenza virus vaccine, specific [FLU VACCINE] Allergy (Unknown, Verified 04/06/24 16:09) RASH latex Allergy (Unknown, Verified 04/06/24 16:09) Rash Sulfa (Sulfonamide Antibiotics) Allergy (Unknown, Verified 04/06/24 16:09) UNKNOWN, itch, itching baclofen Allergy (Verified 04/06/24 16:09) twitching, falling down HPI Comments Details: This?is a?63?yo female who is s/p LSG 10/24/2021. Presents for 2.5 year post op visit. Weight gain of 24lbs since last OV 6mo ago. Started on Wegovy, says she lost a little weight with it. Pt reports she is supposed to go to [place] for consult to break her back and reset my spine. Present meal plan includes: 3 Celebrate shakes with 1 scoop in 8oz UAM each, plus 2 Atkins protein bars pt reports she was eating 5 protein bars per day and attributes this to her weight gain Exercise routine includes: mobility is difficult, walks with a walker tries to exercise with seated movements Pt reports problems with excess skin of abdomen. She continues to have difficulty with rashes, not well controlled by clotrimazole. These rashes have been getting worse. If sweat or moisture collects in the skin fold it becomes very malodorous, has to wash frequently. Very uncomfortable and painful even when walking due to the heaviness of the skin. She also complains of problems of excess skin of arms. She develops irritation from excess skin rubbing against her body. Also causes discomfort due to heaviness. [facility] Medical History (Updated 03/11/24 @ 12:17 by ALON Knapp) Obstructive sleep apnea hypopnea, moderate Claustrophobia Intolerance of continuous positive airway pressure (CPAP) ventilation Obesity (BMI 30.0-34.9) Obstructive sleep apnea Mood disorder Ileitis Smoker unmotivated to quit Prolapse of female pelvic organs Diabetes mellitus with diabetic neuropathy, without long-term current use of insulin Heartburn Osteoarthritis, hip, bilateral Depressive 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 Vitamin D deficiency Insomnia ADHD Cigarette smoker motivated to quit Dyslipidemia Lumbar degenerative disc disease Mixed incontinence urge and stress TEA on CPAP Opiate addiction Depression COPD (chronic obstructive pulmonary disease) Surgical History (Updated 04/16/24 @ 13:33 by ALON Inman) Status post sleeve gastrectomy H/O neck surgery History of lumbar spinal fusion H/O colonoscopy Hx of cholecystectomy History of partial hysterectomy H/O tubal ligation History of lumbar fusion Family History Father Aneurysm Other No family history of cancer Social History Household Members: Family Household Members Other:: daughter Housing: House Are you a primary rn long term care to a significant other at home: No Do you presently have visiting nurse or other home services: No Alcohol intake: never Comment: NOT INDICATED Patient Tobacco Use Status: Current everyday Tobacco user Tobacco use type: Cigarette Cigarettes Per Day: 10 e-Cigarette/Vaping Use: Currently Using Second Hand Smoke Exposure: Yes service: No Current occupational status: unemployed Cognitive needs: Yes (walker) Hearing needs: No Vision needs: Yes (glasses) Telehealth Telehealth Telehealth Platform: Telephone Location of provider rendering services: other Location of patient: address on file Patient Identification confirmed using: Name, : Yes Telehealth method: voice only Patient verbally consented to treatment: Yes Patient verbally consented to billing insurance company: Yes Patient informed of any privacy concerns related to visit: Yes Minutes spent on Phone/Video with Pt.: 12 Assessment & Plan Assessment & Plan (1) Obesity (BMI 30.0-34.9): Code(s): E66.811 - Obesity, class 1 Category: Medical (2) Status post sleeve gastrectomy: Comment: 10/24/2021 Code(s): Z90.3 - Acquired absence of stomach [part of] Category: Surgical Plan Pt would like to explore options for skin removal surgery with another provider. She has tentative goal of BMI <30 for now. I told her I could fax office notes to another provider of her choosing. She may contact Dr. Hameed, gave phone # but made her aware he is moving his practice to [facility]. We did not get to discuss her meal plan today. She will reach out to me when she has decided on next steps regarding skin removal. I spent a total of 30 minutes reviewing/updating records, examining the patient and counseling the patient on weight management as detailed above.
[2024-04-16 13:11] VITALS: BMI 34.7
== END 2024-04-16 13:35 | disposition home or self-care (01) ==
LOC: HO.HBS 13:22
PROVIDERS: PCP Internal Medicine; Visit Provider Physician Assistant Surgical
DX: E66.811 Obesity, class 1 (principal); Z68.34 Body mass index [BMI] 34.0-34.9, adult; Z90.3 Acquired absence of stomach [part of]; Z98.84 Bariatric surgery status
CPT/HCPCS: 99214; G2211

== ENCOUNTER 2024-04-20 11:27 | Outpatient (AMB) | payer MEDICARE, SELFPAY ==
[2024-04-20 13:02] VITALS: BP 116/80; PULSE 70; TEMP 36.8; O2SAT 95
--- NOTE | 2024-04-20 13:02 | AM.OFFWIN_ITS ---
Intake Vital Signs 04/20/24 13:02 Weight 213 lb BP 116/80 Blood Pressure Location Lt brachial Position Sitting Pulse 70 Pulse Source Pulse Oximeter Temp 98.2 F Temp Source Oral Pulse Oximetry (%) 95 Oxygen Delivery Method Room Air Intake Visit Reasons: EP sore throat, body aches, headaches Intake Note: Patient here for cough, congestion, headaches and body aches that started about 5 days ago. Patient Tobacco Use Status: Current everyday Tobacco user Allergies bupropion [From Wellbutrin] Allergy (Intermediate, Verified 04/20/24 13:12) Itching influenza virus vaccine, specific [FLU VACCINE] Allergy (Unknown, Verified 04/20/24 13:12) RASH latex Allergy (Unknown, Verified 04/20/24 13:12) Rash Sulfa (Sulfonamide Antibiotics) Allergy (Unknown, Verified 04/20/24 13:12) UNKNOWN, itch, itching baclofen Allergy (Verified 04/20/24 13:12) twitching, falling down Do you need a note to return to daycare/school/sports/work: No HPI HPI Comments History of Present Illness Details History - The patient is a 63-year-old female pr esenting with symptomatic illness, primarily manifesting as ear pain and respiratory symptoms. - The illness has persisted for five day s and is characterized by sore throat, alternating hot and cold sweats, fever, and fatigue, contributing to disrupted sleep due to coughing. - The patient has a known medical histor y of asthma, bronchitis with no increased need for Ventolin inhaler use during this illness. - Despite fatigue and lack of energy, th e patient denies gastrointestinal symptoms such as nausea or diarrhea, but reports inadequate intake of food and fluids. - COVID testing was negative amidst her symptoms. - Pt also c/o months of a painful lesion on the left outer ear, causing significant discomfort. There has been no meteorology faculty member consultation for this lesion previously. Physical Exam General: Cooperative, healthy appearing, comfortable and no acute distress Orientation/consciousness: Patient oriented x3 Limitations: No limitations Head: Normal to inspection Ears: Hearing grossly normal bilaterally, external ears left is flesh colored raisded 0.5cm lesion with central concavity. left EAC with erythema, edema and left TM with purulent effusion Nose: Normal external nose present, Normal nares present and No nasal discharge present Face and sinus: Normal facial exam and Yes sinuses nontender Mouth: Normal oral and palatal mucosa present and moist mucous membranes Throat: Yes tonsils normal, Yes uvula midline. Posterior oropharynx erythema Eyes: Appearance normal, both eyes and all related structures Neck: Normal visual inspection Respiratory: Clear but very dim to auscultation bilaterally. Normal respiratory effort, able to speak in complete sentences, Actively coughing, no respiratory distress, not tachypneic, no tripod positioning and no use of accessory muscles Cardiovascular: Regular rate and rhythm. Normal S1 and S2 Skin: No rashes or lesions noted Neuro: Patient oriented x3 Extremities: Normal to inspection and Yes no clubbing, cyanosis or edema [facility] Medical History (Updated 04/20/24 @ 14:06 by Ysabel Snowden PA-C) Obstructive sleep apnea hypopnea, moderate Claustrophobia Intolerance of continuous positive airway pressure (CPAP) ventilation Obesity (BMI 30.0-34.9) Obstructive sleep apnea Mood disorder Ileitis Smoker unmotivated to quit Prolapse of female pelvic organs Diabetes mellitus with diabetic neuropathy, without long-term current use of ins ulin Heartburn Osteoarthritis, hip, bilateral Depressive 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 Vitamin D deficiency Insomnia ADHD Cigarette smoker motivated to quit Dyslipidemia Lumbar degenerative disc disease Mixed incontinence urge and stress TEA on CPAP Opiate addiction Depression COPD (chronic obstructive pulmonary disease) Surgical History (Updated 04/16/24 @ 13:33 by ALON Inman) Status post sleeve gastrectomy H/O neck surgery History of lumbar spinal fusion H/O colonoscopy Hx of cholecystectomy History of partial hysterectomy H/O tubal ligation History of lumbar fusion Family History Father Aneurysm Other No family history of cancer Social History Household Members: Family Household Members Other:: daughter Housing: House Are you a primary neurocritical care physician to a significant other at home: No Do you presently have visiting nurse or other home services: No Alcohol intake: never Comment: NOT INDICATED Patient Tobacco Use Status: Current everyday Tobacco user Tobacco use type: Cigarette Cigarettes Per Day: 10 e-Cigarette/Vaping Use: Currently Using Second Hand Smoke Exposure: Yes service: No Current occupational status: unemployed Cognitive needs: Yes (walker) Hearing needs: No Vision needs: Yes (glasses) Review of Systems Const All systems reviewed & are unremarkable except as noted in HPI and below Physical Exam Vital Signs: Last Vital Signs Temp 98.2 F 04/20/24 13:02 Pulse 70 04/20/24 13:02 BP 116/80 04/20/24 13:02 Pulse Ox 95 04/20/24 13:02 Oxygen Delivery Method Room Air 04/20/24 13:02 Assessment & Plan Assessment & Plan (1) Lesion of left earlobe: Code(s): H61.92 - Disorder of left external ear, unspecified Plan: Stat dermatology referral sent as lesion is painful and has been present for several months. (2) URI, acute: Code(s): J06.9 - Acute upper respiratory infection, unspecified Plan: Plan Prescribed dual antibiotics, Augmentin and a Z-Grupo, to cover potential bacterial infections given the patient's respiratory symptoms and history of recurrent pneumonia and asthma. A chest x-ray will be performed to evaluate the possibility of pneumonia due to reported 94% oxygen saturation and dim lungs on auscultation. Instructions on rest and hydration were given, and the treatment plan was clearly communicated to the patient. Patient was informed and verbally consented to the use of an ambient scribe for clinic note documentation during this visit (3) Otitis externa: Code(s): H60.90 - Unspecified otitis externa, unspecified ear Qualifiers: Otitis externa type: other infective Chronicity: acute Laterality: left Qualified Code(s): H60.392 - Other infective otitis externa, left ear Plan: abx ear drops sent to pharmacy (4) Otitis media: Code(s): H66.90 - Otitis media, unspecified, unspecified ear Qualifiers: Otitis media type: suppurative Chronicity: acute Laterality: left Recurrence: non-recurrent Spontaneous tympanic membrane rupture: without spontaneous rupture Qualified Code(s): H66.002 - Acute suppurative otitis media without spontaneous rupture of ear drum, left ear Plan: abx sent to pharmacy Orders: Orders XR chest 2V Today R05.9 - Cough, unspecified SARS-CoV2/FLU/RSV Today J06.9 - Acute upper respiratory infection, unspecified Referrals Dermatology Referral H61.92 - Disorder of left external ear, unspecified Medications: New azithromycin For 250 mg dose pack: take 500 mg today (day 1), then 250 mg for 4 days (days 2-5) PO 6 tabs 0RF [id number] 3.5-10,000-1 mg/mL-unit/mL-% apply to left ear canal 4 drps otic (ears) Q8H 7 days 10 mL 0RF amoxicillin-pot clavulanate 875-125 mg 1 tab PO Q12H 14 tabs 0RF Coding Level of Care Code Est Pt Level 5 (23051) Diagnoses Lesion of left earlobe H61.92 URI, acute J06.9 Other infective acute otitis externa of left ear H60.392 Otitis externa type: other infective Chronicity: acute Laterality: left Non-recurrent acute suppurative otitis media of left ear without spontaneous rupture of tympanic membrane H66.002 Otitis media type: suppurative Chronicity: acute Laterality: left Recurrence: non-recurrent Spontaneous tympanic membrane rupture: without spontaneous rupture
== END 2024-04-20 13:59 | disposition home or self-care (01) ==
PROVIDERS: PCP Internal Medicine; Visit Provider Physician Assistant
DX: H61.92 Disorder of left external ear, unspecified (principal); J06.9 Acute upper respiratory infection, unspecified; H60.392 Other infective otitis externa, left ear; H66.002 Acute suppurative otitis media without spontaneous rupture of ear drum, left ear

== ENCOUNTER 2024-04-20 11:27 | Outpatient (REF) | payer MEDICARE, SELFPAY ==
[2024-04-20 17:58] LABS: Influenza A PCR NEGATIVE (Negative); Influenza B PCR NEGATIVE (Negative); Resp Syncy Virus RNA Qual PCR NEGATIVE (Negative); SARS COV2 PCR INHOUSE NEGATIVE (Negative)
== END 2024-04-20 11:28 | disposition home or self-care (01) ==
LOC: HO.LNP 11:27
PROVIDERS: PCP Internal Medicine; Visit Provider Physician Assistant
DX: J06.9 Acute upper respiratory infection, unspecified (principal)
CPT/HCPCS: 0241U; 99212

== ENCOUNTER 2024-04-20 13:56 | Outpatient (REF) | payer MEDICARE, SELFPAY ==
--- NOTE | ~2024-04-20 | XR_ITS ---
EXAMINATION: XR CHEST CLINICAL INFORMATION: R05.9 - Cough, unspecified COMPARISON: Chest x-ray 12/23/2023. TECHNIQUE: 2 views of the chest were obtained. FINDINGS: The lungs are well-expanded and clear acute pneumonic process. There is bibasilar streaky atelectasis similar previous study The heart size and pulmonary vascularity is normal. There is moderate spondylosis mid and lower dorsal spine. There is hardware in the lower cervical spine for fusion. XR/XR chest 2V IMPRESSION: No acute process. Bibasilar streaky atelectasis or scarring unchanged to previous exam 01-13 Electronically signed by: Terrell Mohamud MD 04/21/2024 11:10 AM EST
[2024-04-20 16:35] LABS: Alanine Aminotransferase 19 U/L (0-31); Aspartate Amino Transferase 24 U/L (5-31); Cholesterol 191 mg/dL (<200); HDL Cholesterol 40 mg/dL (>40); LDL Cholesterol Calculated 111 mg/dL (<100); Triglycerides 202 mg/dL (<150)
[2024-04-20 16:39] LABS: Estimated Average Glucose 128 mg/dL; Hemoglobin A1C 164.1386 umol/L; Hemoglobin A1c % 6.1 % (<6.0); Total Hemoglobin (HGBA1C) 3773.1097 umol/L
[2024-04-20 16:58] LABS: Creatinine Urine 293.73 mg/dL; Microalbum/Creatinine Ratio Ur 10.2 ug/mg cr (<30)
== END 2024-04-20 13:57 | disposition home or self-care (01) ==
LOC: HO.HMGCX 13:56
PROVIDERS: PCP Internal Medicine; Referring Provider Physician Assistant; Visit Provider Internal Medicine
DX: E78.5 Hyperlipidemia, unspecified (principal); E11.40 Type 2 diabetes mellitus with diabetic neuropathy, unspecified; R05.9 Cough, unspecified; H61.92 Disorder of left external ear, unspecified; J06.9 Acute upper respiratory infection, unspecified; H61.392 Other acquired stenosis of left external ear canal
CPT/HCPCS: 0241U; 36415; 71046; 80061; 82043; 82570; 83036; 84450; 84460; 99212

== ENCOUNTER → 2024-04-20 14:10 | Outpatient (BNV) | payer MEDICARE, SELFPAY | PROVIDERS: PCP Internal Medicine; Referring Provider Physician Assistant; Visit Provider Radiology Diagnostic Radiology | DX: J98.11 Atelectasis (principal) | CPT/HCPCS: 71046 ==

== ENCOUNTER 2024-04-23 16:06 | Emergency (ER) | payer OTHER, SELFPAY ==
--- NOTE | 2024-04-23 | ECG_ITS ---
Test Reason : SOB Blood Pressure : / mmHG Vent. Rate : 072 BPM Atrial Rate : 072 BPM P-R Int : 134 ms QRS Dur : 082 ms QT Int : 382 ms P-R-T Axes : 081 072 067 degrees QTc Int : 418 ms Normal sinus rhythm Nonspecific ST abnormality Abnormal ECG When compared with ECG of 20-DEC-2023 02:25, No significant change was found Referred By: Brenton Luong Electronically Signed By:RAFAELA YOUNG MD
--- NOTE | ~2024-04-23 | CT_ITS ---
CLINICAL HISTORY: neck pain CT cervical spine without contrast Comparison: None Findings: Degenerative changes are present at the bilateral temporomandibular joints. Anterior spinal fusion hardware in place at the C5, C6, and C7 vertebral levels with an intervertebral disc spacer at C4-C5. Surgical hardware appears intact. There is bony fusion of the C4 through C7 vertebral bodies. No significant cervical spondylolisthesis identified. No acute fractures or dislocations. Multilevel bilateral degenerative facet arthropathy present at the cervical spine. Impression: 1. No acute fracture or dislocation injury identified at the cervical spine. This document has been electronically signed by: Cory Del Rosario MD on 04/23/2024 21:37:41
--- NOTE | ~2024-04-23 | XR_ITS ---
CLINICAL HISTORY: back pain Three views of the lumbar spine. COMPARISON: XR lumbar spine dated 07/16/23 at 11:17 EDT FINDINGS: Pain pump overlies the left hemipelvis. Posterior spinal fixation hardware present at L4-5 with intervertebral disc spacers present at L4-5 and L5-S1. Surgical clips in the left upper quadrant, right upper quadrant and along the left hemipelvis. Five uhf-gze-fyoleso lumbar type vertebral bodies. Vertebral body heights are maintained. Straightening of the normal lumbar lordosis. Multilevel marginal osteophytes with loss of disc space height most pronounced at L2-3 where there is vacuum disc phenomena. Facet joint arthrosis present throughout the lumbar spine. Visualized portions of the bones of the pelvis appear intact. Mildly increased sclerosis along the sacroiliac joints, similar to prior imaging. IMPRESSION: 1. No radiographic evidence of acute injury to the lumbar spine. 2. Anatomic alignment of posteriorly fixated lower lumbar spine without evidence of hardware complication. 3. Advanced multilevel degenerative changes of the lumbar spine, similar to prior imaging. This document has been electronically signed by: Dave Crawford MD on 04/23/2024 17:28:27
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
--- NOTE | ~2024-04-23 | XR_ITS ---
CLINICAL HISTORY: left shoulder pain Four views of the left shoulder. COMPARISON: None FINDINGS: Proximal left humerus, the left scapula, and the left clavicle appear intact. Humeral head is appropriately seated in the glenoid. Small osteophytes present along the inferior margin of the humeral head. Mild hypertrophy of the left acromioclavicular joint. Visualized portions of the left lung are clear. Anterior cervical fusion hardware along the lower cervical spine. IMPRESSION: 1. No radiographic evidence of acute injury to the left shoulder. 2. Mild degenerative changes of the left shoulder. This document has been electronically signed by: Dave Crawford MD on 04/23/2024 17:30:07
--- NOTE | ~2024-04-23 | XR_ITS ---
CLINICAL HISTORY: ankle pain Three views of the right foot. COMPARISON: None FINDINGS: No ankle joint effusion. Plantar calcaneal spur present. Normal tarsometatarsal alignment. Mild degenerative changes of the 1st MTP joint. Tarsals, metatarsals and phalanges appear intact. Interphalangeal joint space narrowing. IMPRESSION: 1. No radiographic evidence of acute injury to the right foot. This document has been electronically signed by: Dave Crawford MD on 04/23/2024 17:22:19
[2024-04-23 16:21] VITALS: BP 123/91; PULSE 80; RESP 19; TEMP 36.6; O2SAT 98; BMI 34.3
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
[2024-04-23 17:20] LABS: MANUAL DIFF FLAG NO
[2024-04-23 17:22] LABS: Basophils Absolute Auto 0.1 X10*3/uL (0.0-0.2); Basophils Percent Auto 0.5 % (0-2); Eosinophils Absolute Auto 0.1 X10*3/uL (0.0-0.4); Eosinophils Percent Auto 0.5 % (0-4); Hematocrit 43.6 % (37.0-47.0); Hemoglobin 14.6 g/dl (12.0-16.0); Imm Gran Abs Auto 0.06 X10*3/uL (0.00-0.03); Imm Gran Pct Auto 0.5 % (0.0-0.4); Lymphocytes Absolute Auto 3.7 X10*3/uL (1.2-4.9); Lymphocytes Percent Auto 33.9 % (20-40); Mean Corpuscular HGB Conc 33.5 g/dl (31.0-35.0); Mean Corpuscular Hemoglobin 29.4 pg (27.0-33.0); Mean Corpuscular Volume 87.7 fL (80.0-98.0); Mean Platelet Volume 9.4 fL (9.4-12.3); Monocytes Absolute Auto 0.9 X10*3/uL (0.1-1.2); Monocytes Percent Auto 8.4 % (2-11); Neutrophils Absolute Auto 6.1 x10*3/uL (2.0-8.3); Neutrophils Percent Auto 56.2 % (45-73); Platelet Count 229 X10*3/uL (160-400); Red Blood Count 4.97 X10*6/uL (4.20-5.50); Red Cell Distribution Width 12.8 % (11.0-16.0); White Blood Count 10.9 X10*3/uL (4.8-10.8)
[2024-04-23 17:37] LABS: Prothrombin Time 11.8 SEC (10.9-12.4)
[2024-04-23 17:39] LABS: Partial Thromboplastin Time 29.9 SEC (26.0-36.8)
[2024-04-23 17:47] LABS: Alanine Aminotransferase 26 U/L (0-31); Albumin Level 4.1 g/dL (3.5-5.0); Alkaline Phosphatase 79 U/L (39-117); Anion Gap 11 (12-20); Aspartate Amino Transferase 24 U/L (5-31); Bilirubin Total 0.2 mg/dL (0.0-1.0); Blood Urea Nitrogen 13 mg/dL (9-16); Calcium 8.8 mg/dL (8.4-10.2); Carbon Dioxide 28 mmol/L (22-29); Chloride 103 mmol/L (96-108); Creatinine Clr Calc Pharmacy 90.7; Estimated Glomerular Filt Rate > 60; Glucose Random 131 mg/dL (60-115); Potassium 4.1 mmol/L (3.3-5.1); Sodium 138 mmol/L (135-145); Total Protein 7.6 g/dL (6.5-8.0)
[2024-04-23 17:49] LABS: HCG Quantitative < 2 mIU/mL
--- NOTE | 2024-04-23 18:28 | PC.NURSE ---
PT states she can't breathe Patient O2 sats 97% on RA, provider notified EKG ordered.
[2024-04-23 19:06] VITALS: BP 140/79; PULSE 76; RESP 18; TEMP 36.7; O2SAT 94
[2024-04-23] MEDS: oxyCODONE HCl Immed Release 5 MG TABLET PO (19:15)
[2024-04-23] MEDS: diazePAM 5 MG TABLET 10 MG PO (19:33)
[2024-04-23] MEDS: iohexoL 350 MG/ML 100 ML INFUS..BTL 85 ML IV (21:10)
[2024-04-23 21:41] VITALS: BP 125/78; PULSE 97; RESP 20; TEMP 36.8; O2SAT 96
--- NOTE | 2024-04-23 22:06 | PC.NURSE ---
Addendum entered by Patricia Hatch RN 04/23/24 22:10: professor of economicsMANPREET Lewis made aware of incident. Original Note: Patient yelling in hallway in [facility], calling over every single human available to see it if her CT scan is back - it has not been resulted yet. Patient yelling she has been here for too long and has to go home . Informed patient she can leave at any time if she is willing to sign AMA form. Patient willing to sign. Provider made aware of patient's decision, provider okay with patient leaving AMA. Patient signed form w/ 2 nurse witnesses. Iv removed. Observed walking with steady gait to ED exit.
[2024-04-23 22:10] VITALS: BP 125/78; PULSE 97; RESP 20; TEMP 36.8; O2SAT 96
== END 2024-04-23 22:10 | disposition left against medical advice (07) ==
PROVIDERS: Physician Assistant; Emergency Provider Emergency Medicine; PCP Internal Medicine
DX: S39.91XA Unspecified injury of abdomen, initial encounter (principal); S19.9XXA Unspecified injury of neck, initial encounter; R06.02 Shortness of breath; R94.31 Abnormal electrocardiogram [ECG] [EKG]; R51.9 Headache, unspecified; M54.2 Cervicalgia; R10.2 Pelvic and perineal pain; R07.89 Other chest pain; M54.50 Low back pain, unspecified; M25.512 Pain in left shoulder; M25.571 Pain in right ankle and joints of right foot; F17.210 Nicotine dependence, cigarettes, uncomplicated; V43.52XA Car driver injured in collision with other type car in traffic accident, initial encounter; Y93.89 Activity, other specified; Y92.488 Other paved roadways as the place of occurrence of the external cause; Y99.8 Other external cause status; Z79.899 Other long term (current) drug therapy
CPT/HCPCS: 36415; 70450; 71260; 72100; 72125; 73030; 73610; 73630; 74177; 80053; 84702; 85025; 85610; 85730; 93005; 99284; Q9967

== ENCOUNTER → 2024-04-23 16:25 | Outpatient (BNV) | payer MEDICARE, SELFPAY | PROVIDERS: PCP Internal Medicine; Visit Provider Radiology Diagnostic Radiology | DX: S39.91XA Unspecified injury of abdomen, initial encounter (principal); S29.9XXA Unspecified injury of thorax, initial encounter; M54.2 Cervicalgia; S09.90XA Unspecified injury of head, initial encounter; M54.9 Dorsalgia, unspecified; M54.12 Radiculopathy, cervical region; M25.571 Pain in right ankle and joints of right foot | CPT/HCPCS: 70450; 71260; 72100; 72125; 73030; 73610; 73630; 74177 ==

== ENCOUNTER → 2024-04-23 18:42 | Outpatient (BNV) | payer MEDICARE, SELFPAY | PROVIDERS: Emergency Provider Emergency Medicine; PCP Internal Medicine; Visit Provider Internal Medicine Cardiovascular Disease | DX: R94.31 Abnormal electrocardiogram [ECG] [EKG] (principal) | CPT/HCPCS: 93010 ==

== ENCOUNTER 2024-06-04 13:33 | Outpatient (AMB) | payer OTHER, MEDICARE, SELFPAY ==
[2024-06-04 13:39] VITALS: BP 124/76; PULSE 84; RESP 18; O2SAT 99; BMI 43.6
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
--- OUTSIDE RECORDS SUMMARY | 2024-06-04 13:41 | XMS_ITS | Patient Health Record ---
Author Organization [facility] stacie Fillmore Address [address] [place] [address] Care Team Providers Care Data Keyer Name Role Phone Yoselyn NEVES, Melissa Carey Primary Care Provider Un available Ludwin Salguero Unavailable [phone] Allergies No Known Allergies Reason For Referral No Information Medications Medication SIG (Take, Route, Frequency, Duration) Notes Start Date End Date Status traZODone HCl Active Extra Depth Diabetic Shoes with 3 Pair Custom heat-molded multi-density innersoles for 1 year Dx: 04/26/2020 Active Adderall Active metFORMIN HCl 1000 MG 1 tablet with a me al Orally Once a day for 30 day(s) Active Social History Tobacco Use: Social History Observation Description Date Details (start date - stop date) Current Smoker NA - NA Tobacco Use/Smoking Question Answer Notes Are you a: current smoker How often do you smoke cigarettes? every day How many cigarettes a day do you smoke? 11-20 Additional Findings: Tobacco User Heavy cigarett e smoker (20-39 cigs/day) Alcohol Screen Question Answer Notes Did you have a drink containing alcohol in the p ast year? No Points 0 Interpretation Negative Tobacco use other than smoking: Question Answer Notes Are you an other tobacco user? No Problems Problem Type SNOMED Code ICD Code Onset Dates Problem Status W/U Status Risk Notes Problem Acquired hallux valgus (72481745) Hallux valgus (acquired), left foot (M20.12) Active confirmed Problem Acquired hallux valgus (74763270) Hallux valgus (acquired), right foot (M20.11) Active confirmed Problem Polyneuropathy due to type 2 diabetes mellitus (221027610) Type 2 diabetes mellitus with diabetic polyneuropathy (E11.42) Active confirmed Problem Polyneuropathy due to diabetes mellitus type I (526003936) Type 1 diabetes mellitus with diabetic polyneuropathy (E10.42) Active confirmed Encounters Encounter Location Date Provider Diagnosis [facility] [place] [address] [place] [address] 10/14/2023 Ludwin Salguero Plan Of Treatment Pending Test Test Name Order Date [id number] SKIN LESIONS, OVER 4 04/26/19 21 Insurance Providers Payer Name Payer Address Payer Phone Subscriber Number Group Number Insured Name Patient Relationship to Insured Coverage Start Date Coverage End Date Medicare [employer] [address] [place] [address] [id number] Justa Larsen Self - patient is the insured Medical (General) History Medical History History ICD Code Diabetes mellitus Diabetic neuropathy asthma Back,Hip,and Knee pain Diabetic Lung disease Numbness Surgical History Surgery Date(Month/Year) back surgery 1997 Hospitalization History Reason Date(Month/Year) [facility] [place] Diabetes 01/2020
--- OUTSIDE RECORDS SUMMARY | 2024-06-04 13:41 | XMS_ITS | Clinical Summary ---
Author Organization [facility] Address [address] [place] [address] Care Team Providers Care Shooter'S Helper Name Role Phone Pcp, No Primary Care Provider Unavailabl e Allergies No known active allergies Medications Medication Sig Dispensed Refills Start Date End Date Status buprenorphine-naloxon e (SUBOXONE) 8-2 mg per SL film DISSOLVE 2 FILMS UNT QD 06/05/2019 Active traZODone (DESYREL) 100 MG tablet 06/05/2019 Active nitrofurantoin monohydrate (MACROBID) 100 MG capsule TK 1 C PO BID 06/18/2019 Active ibuprofen (MOTRIN) 600 MG tabletIndications:Acu te low back pain, unspecified back pain laterality, unspecified whether sciatica present Take 1 tablet (600 mg total) by mouth 4 times daily (every 6 hours) as needed for mild pain. 30 tablet 06/22/2019 Active Social History Tobacco Use Types Packs/Day Years Used Date Smoking Tobacco: Never Assessed Sex and Gender Information Value Date Recorded Sex Assigned at Not on file Gender Identity Not on file Sexual Orientation Not on file Last Filed Vital Signs Vital Sign Reading Time Taken Comments Blood Pressure 116/80 06/22/2019 11:15 AM EST Pulse 78 06/22/2019 11:15 AM EST Temperature 37.1 ??C (98.7 ??F) 06/22/2019 11:[address] Respiratory Rate - - Oxygen Saturation 98% 06/22/2019 11:15 AM EST Inhaled Oxygen Concentration - - Weight 106 kg (233 lb) 06/22/2019 11:15 AM EST Height 162.6 cm (5' 4 ) 06/22/2019 11:15 AM EST Body Mass Index 39.99 06/22/2019 11:15 AM EST Plan of Treatment Health Maintenance Due Date Last Done Comments Hepatitis C Virus Screening 1962 HIV Screening 1975 DTaP/Tdap/Td Vaccines (1 - Tdap) 1981 Pap Smear (Ages 21-65) 1983 Mammogram 2002 Colonoscopy 2007 Pneumococcal Vaccines 50+ (1 of 1 - PCV) 2012 Zoster (Shingles) Vaccine (1 of 2) 2012 Influenza Vaccine 11/21/2023 COVID-19 Vaccine (1 - 2023-2 5 season) 2023 RSV Vaccine 60 years and old er and Patients (1 - 1-dose 75+ series) 2037 Hepatitis B Vaccines Aged Out No long er eligible based on patient's age to complete this topic Pneumococcal Vaccine: Pediat judson (0-5 Years) and At-Risk Patients (6 to 49 Years) Aged Out No longer eligible b ased on patient's age to complete this topic Care Teams Shooter'S Helper Relationship Specialty Start Date End Date Pcp, No PCP - General General Medicine 04/22/19
--- OUTSIDE RECORDS SUMMARY | 2024-06-04 13:41 | XMS_ITS | Data Portability ---
Author Organization [facility], [address] Address [address] [place] [address] Care Team Providers Care Assistant Teacher Primary Name Role Phone [facility] Primary Care Provider Assessment No assessment recorded. Plan of Treatment Reminders Order Date Submit Date Provider Last Modified By Organization Details Last Modified Time Details Appointments None recorded. Lab None recorded. Referral None recorded. Procedures None recorded. Surgeries None recorded. Imaging None recorded. Medication Orders Polytrim 10,000 unit-1 mg/mL eye drops 2022 023 [facility] #[id number], [address] [place], [address], 3 09:03:10 prednisone 20 mg tablet 2022 023 [facility] #[id number], [address] [place], [address], 3 09:03:09 diphenhydra mine 25 mg capsule 2022 023 [facility] #[id number], [address] [place], [address], 3 09:03:09 Patient TargetsNo targets recorded. Patient Instructions Encounter Date Encounter Id Patient Instructions Last Modified By Organization Details Last Modified Time 04/30/2022 [id number] Apply warm, mois t compresses over closed eyes 3-4 times per day for 10-15 minutes at a time. Do not return to work until after using the antibiotic drops for 24 hours. If your symptoms do not improve, worsen at any time, or if intense pain, redness, or burning occurs with use of the eye drops, stop the drops immediately and go to the ER. If you wear contact lenses, do not wear them for 2 days. after symptoms resolved. If you have disposable contacts, discard the pair you were wearing and start with a new pair. If they are not disposable, clean thoroughly before using again. [email or web address] Not available 04/30/2022 09:02:43 Uncertain etiology Will Rx prednisone x 3 d Zyrtec daily x 2 weeks Topical steroid x 1 week Eliminate any new foods, meds, soaps, detergents, hygeine products etc Follow up as needed for no improvement or worsening symptoms Discussed concerning red flags with patient and reasons to follow up in the Emergency Department urgently. [email or web address] Not available 04/30/2022 09:02:59 Reason for Referral None Reported. Procedures Surgical History Date Name Laterality Status Provider Name and Address Organization Details Recorded Time procedure on back completed KRISTA BARLOW PA - [email or web address] 04/30/2022 08:45:54 Gastric bypass for obesity completed [employer]REYA BARLOW PA - [email or web address] 04/30/2022 08:46:07 Imaging Results None recorded. Procedure Notes None recorded. Medical Equipment None Reported. Allergies No known drug allergies Medications Name Sig Start Date Stop Date Status Note LastModified by Organization Details LastModified Time prednisone 20 mg tablet Take 2 tablets every day by oral route in the morning for 5 days. 2022 active Not Available Not Available Not Avai lable diphenhydram ine 25 mg capsule Take 1 capsule every 6-8 hours by oral route for 7 days. 2022 active Not Available Not Available Not Avai lable Polytrim 10,000 unit-1 mg/mL eye drops INSTILL 1 DROP INTO AFFECTED EYE(S) BY OPHTHALMIC ROUTE EVERY 6 HOURS 2022 active Not Available Not Available Not Avai lable trazodone active Not Available Not Noreen ilable Not Available Vitals Date Recorded Body height Body mass index (BMI) Body weight Body temperature Oxygen saturation Oxygen saturation in Arterial blood by Pulse oximetry Heart rate Respiratory rate Systolic blood pressure Diastolic blood pressure Provider Name and Address Organization Details Last Updated DateTime 3 167.64 cm 27.3 kg/m2 99304.1 1 g 97.1 [degF] 95 % 95 % 65 /min 16 /min 107 mm[Hg] 67 mm[Hg] ASHLEEFlakito YEN [facility] - [facility] 08:49:33 Social History Question Answer Notes LastModified by Organizat ion Details LastModified Time Tobacco Smoking Status Current Every Day Smoker KRISTA YEN wagner PA - [facility] 04/30/2022 08:47:12 What Is Your Level Of Alcohol Consumption? None Information not available 04/30/2022 Have You Had Direct Contact, Or Contact During Intimacy, With Monkeypox Rash, Scabs, Or Body Fluids From A Person With Monkeypox? No [email or web address] Information not available 04/30/2022 Do You Use Any Illicit Or Recreational Drugs? No Information not available 04/30/2022 Have You Recently Traveled Abroad? No Information not available 04/30/2022 Sex: Unknown Functional Status None recorded. Mental Status None recorded. Family History Relationship Description Onset Age of this Age Resolved Age Notes LastModified by Organization Details LastModified Time Father No current problems or disability [email or web address] Not available 04/30 08:45:34 Mother No current problems or disability [email or web address] Not available 04/30 08:45:35 Medical History Condition Response Gout N Cancer, liver N Thyroid disorder N Hyperthyroidism N Rheumatoid arthritis N GI bleeding N Irritable bowel syndrome N COPD N Depression N Tinnitus, unspecified ear N Pneumonia N Cancer, uterus N Mental disorder, NOS N Headaches/Migraines N Insomia N Alzheimer's disease N Anxiety Disorder N Obesity N Arthritis N Cancer N Stroke N Alcohol abuse N Liver disease N Allergy Food/Medication N Cancer, bladder N Peripheral artery disease N Oxygen dependence N Fibromyalgia N Atrial fibrillation N Tinnitus, right ear N Kidney Disease N Deep vein thrombosis DVT leg N Migraine N Disorder of circulatory system N Anxiety N Cancer, brain N Disease of pancreas N Cancer, lung N Eating disorder, unspecified N Cancer, colon N Crohn's disease N Cancer, cervical N N Cancer, breast N Cancer, skin N Coagulation defect, unspecified N Cataract N Asthma N Congestive heart failure (CHF) N Substance Abuse N Vertigo N Coronary artery disease N Pulmonary Embolism N Cancer, pancreas N Tobacco use disorder N Disease of lung N Allergic rhinitis N Joint disorder, unspecified N Menopause N Back disorder N Drug dependence, unspecified N Hypothyroidism N Disorder kidney N Sickle Cell Anemia N Cancer, ovarian N Egan's Palsy N Disorder of eye N Cancer, prostate N Allergy Seasonal N Disorder of lymph system N Disorder of urinary system N Drug abuse N Radiculopathy, site unspecified N Myoneural disorder, unspecified N Nervous system disorder N ADHD N High Cholesterol N Post-herpetic neuralgia N Aneurysm, cerebral N Tinnitus, left ear N Prostate hypertrophy, benign N Disorder of skin/subcutaneous N Osteoarthritis N Disorder of ear N Ovarian cysts N Parkinson's disease N Low back pain N Carpal tunnel syndrome N Anemia N Disorder of muscle N Kidney stone N Bipolar affective disorder N Leukemia, unspecified N Diabetes N Disorder involving the immune mechanism N Endocrine disorder N Seizure N Hyperlipidemia N Eczema N Emphysema, unspecified N Lymphoma N Dementia N Diverticulitis N Lupus N Seizure disorder N Reflux/GERD N Sleep Apnea N Cancer, bone N Cardiac arrhythmia, unspecified N Disorder of thyroid N Disorder of bone N Heart Disease N Disorder of brain N Liver Disorder N Aneurysm, aortic N Hypertension N Osteoporosis N Disease of digestive system, unspecified N Gastroesophageal reflux (GERD) N Gynecological HistoryNo gynecological history recorded. Obstetrics History GPAL:G 0 P 0 0 0 0 Past Encounters Encounter ID Performer Location Encounter Start Date Encounter Closed Date Diagnosis/Indication Diagnosis SNOMED-CT Code Diagnosis ICD10 Code Diagnosis Note [id number] [address] [place] [address] 05/17/2018 10:06:58 05/17/2018 11:17:23 [id number] [address] [place] [address] 02/05/2019 11:11:01 02/05/2019 12:48:14 [id number] [address] [place] [address] 02/27/2019 12:30:54 02/27/2019 13:27:26 [id number] [address] [place] [address] 06/10/2019 11:00:06 06/10/2019 11:53:52 [id number] [address] [place] [address] 12/09/2017 08:26:42 12/09/2017 09:51:46 [id number] [address] [place] [address] 10/17/2019 13:11:34 10/17/2019 14:44:33 [id number] [address] [place] [address] 11/06/2019 16:08:26 11/06/2019 16:30:34 [id number] [address] [place] [address] 01/24/2022 08:23:16 01/24/2022 11:53:56 [id number] [address] [place] [address] 04/24/2018 08:59:05 04/24/2018 10:07:52 [id number] [address] [place] [address] 08/26/2020 13:14:17 08/26/2020 14:50:48 [id number] [address] [place] [address] 08/02/2018 11:54:27 08/02/2018 12:50:35 [id number] [address] [place] [address] 07/18/2020 11:23:35 07/18/2020 12:50:36 [id number] [address] [place] [address] 06/16/2016 12:47:45 06/16/2016 14:18:29 [id number] [address] [place] [address] 03/09/2021 18:31:21 03/09/2021 19:21:50 [id number] [address] [facility] [place] [address] 10/17/2020 14:44:06 10/17/2020 15:45:43 [id number] [address] [place] [address] 02/05/2020 17:27:17 02/05/2020 20:18:22 [id number] [address] [place] [address] 10/25/2018 14:57:35 10/25/2018 15:53:24 [id number] [address] [place] [address] 11/24/2019 14:46:22 11/24/2019 16:49:09 [id number] [address] [place] [address] 09/26/2016 19:08:06 09/26/2016 20:37:55 [id number] [address] [facility] [place] [address] 01/30/2019 11:09:39 01/30/2019 11:50:19 [id number] [address] [facility] [place] [address] 08/07/2017 17:58:06 08/07/2017 20:05:16 [id number] 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, EVENT TECHNICIAN [address] [facility] [place] [address] 04/30/2022 08:20:58 04/30/2022 09:07:24 Acute conjunctivitis of bilateral eyes 1242620498 53039 H10.33 Allergic r eaction to substance 512190895 T78.40XA Health Concerns Section Related Observation LastModified by Organization Detai ls LastModified Time None Recorded Concern Status LastModified by Organization Details LastModified Time None Recorded Advance Directives Directive None Recorded Payers Encounter Date Sequence Insurance Name Policy Number Policy Coleman Covered Member ID Coleman Member ID Guarantor Name 08/26/2020 1 MEDICARE B-[place]: [facility] [employer] Justa Larsen [id number] Justa Larsen 08/26/2020 2 [place] Justa Belloorg [id number] Justa Hammermborg 10/17/2020 1 [place] [employer] Justa Bell[place]g [id number] Justa Hammermborg 10/17/2020 2 [place] Justa Das Malmborg [id number] Justa Malmborg 03/09/2021 1 [place] [employer] Justa Das [place]mb[place] [id number] Justa Malmborg 03/09/2021 2 [place] Justa Das [place] [id number] Justa Malmborg 01/24/2022 1 [place] [employer] Justa Hammermborg [id number] [facility] [place] 01/24/2022 2 [place] Justa [place] [id number] Justa Malmborg 04/30/2022 1 [place] [employer] Justa [place] [id number] Justa Hammermborg 04/30/2022 2 [place] Justa [place] [id number] Justa [facility] Notes Date Note Type Note Provider Name and Address Organization Details Recorded Time 04/30/2022 text/html puffiness around bilateral eyes , conjunctiva redness bilateral , periorbital swelling bilateral x 1 day. 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 NP [address] [place], [address], [place] - [facility] 04/30/2022 09:03:32 OBGyn Episode No OBEpisode recorded.
--- OUTSIDE RECORDS SUMMARY | 2024-06-04 13:41 | XMS_ITS ---
Author Organization [facility] Address [address] [place] [address] Care Team Providers Care Business Broker Name Role Phone Yoselyn NEVES, Melissa Carey Primary Care Provider Un available Ludwin Salguero Unavailable [phone] REASON FOR VISIT Scheduling an apt Encounters Encounter Location Date Provider Diagnosis [facility] [address] [place] [address] 10/14/2023 Ludwin Salguero Plan Of Treatment No Information Progress Notes * TEXBeni Justa LDOB: [birth year] (63 yo F)Acc No.[id number]:10/14/2023 Patient:?Adriel Larsenalma Das :1960???Age:63 Y???Sex:Female Address:[address] [place] [address], [address] * true * Date:? Generated for Gail wahl/Kyle/eTransmitting on:?06/04/2024 01:41 PM EST
== END 2024-06-04 14:11 | disposition home or self-care (01) ==
PROVIDERS: PCP Internal Medicine; Visit Provider Internal Medicine
DX: M54.50 Low back pain, unspecified (principal); S13.4XXA Sprain of ligaments of cervical spine, initial encounter

== ENCOUNTER → 2024-06-04 13:33 | Outpatient (BNVA) | payer MEDICARE, SELFPAY | PROVIDERS: PCP Internal Medicine; Visit Provider Internal Medicine | DX: E11.40 Type 2 diabetes mellitus with diabetic neuropathy, unspecified (principal); E66.811 Obesity, class 1; Z78.9 Other specified health status; F40.240 Claustrophobia; G47.33 Obstructive sleep apnea (adult) (pediatric); M54.50 Low back pain, unspecified; S13.4XXD Sprain of ligaments of cervical spine, subsequent encounter | CPT/HCPCS: 96127 ==

== ENCOUNTER 2024-06-15 13:39 | Outpatient (AMB) | payer OTHER, MEDICARE, SELFPAY ==
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
[2024-06-15 13:45] VITALS: BP 132/72; PULSE 80; O2SAT 94; BMI 39.0
--- OUTSIDE RECORDS SUMMARY | 2024-06-15 15:38 | XMS_ITS | Data Portability ---
Author Organization [facility], [address] Address [address] [place] [address] Care Team Providers Care Newscast Producer Name Role Phone [facility] Primary Care Provider Assessment No assessment recorded. Plan of Treatment Reminders Order Date Submit Date Provider Last Modified By Organization Details Last Modified Time Details Appointments None recorded. Lab None recorded. Referral None recorded. Procedures None recorded. Surgeries None recorded. Imaging None recorded. Medication Orders Polytrim 10,000 unit-1 mg/mL eye drops 2022 023 [id number], [address] [place], [address], 3 09:03:10 prednisone 20 mg tablet 2022 023 [id number], [address] [place], [address], 3 09:03:09 diphenhydra mine 25 mg capsule 2022 023 [id number], [address] [place], [address], 3 09:03:09 Patient TargetsNo targets recorded. Patient Instructions Encounter Date Encounter Id Patient Instructions Last Modified By Organization Details Last Modified Time 04/30/2022 [id number] Apply warm, mois t compresses over closed [...] on back completed KRISTA BARLOW PA - [facility] 04/30/2022 08:45:54 Gastric bypass for obesity completed [employer] Cloud SecurityMIREYA BARLOW PA - [facility] 04/30/2022 08:46:07 Imaging Results None recorded. [...] Updated DateTime 3 167.64 cm 27.3 kg/m2 78907.1 1 g 97.1 [degF] 95 % 95 % 65 /min 16 /min 107 mm[Hg] 67 mm[Hg] ASHLEEFlakito YEN CHI - [facility] 08:49:33 Social History Question Answer Notes LastModified by Organizat ion Details LastModified Time Tobacco Smoking Status Current Every Day Smoker KRISTA YEN wagner PA - [facility] 04/30/2022 08:47:12 What Is Your Level Of Alcohol Consumption? None [email or web address] Information not available 04/30/2022 Have You Had Direct Contact, Or Contact During Intimacy, With Monkeypox Rash, Scabs, Or Body Fluids From A Person With Monkeypox? No [email or web address] Information not available 04/30/2022 Do You Use Any Illicit Or Recreational Drugs? No [email or web address] Information not available 04/30/2022 Have You Recently Traveled Abroad? No [email or web address] Information not available 04/30/2022 Sex: Unknown Functional Status None recorded. Mental Status None recorded. Family History Relationship Description Onset Age of this Age Resolved Age Notes LastModified by Organization Details LastModified Time Father No current problems or disability [email or web address] Not available 04/30 08:45:34 Mother No current problems or disability Not available 04/30 08:45:35 Medical History Condition Response Gout N Cancer, liver N Thyroid disorder N Hyperthyroidism N Rheumatoid arthritis N GI bleeding N Irritable bowel syndrome N Depression N COPD N Tinnitus, unspecified ear N Pneumonia N Cancer, uterus N Mental disorder, NOS N Headaches/Migraines N Insomia N Alzheimer's disease N Anxiety Disorder N Obesity N Arthritis N Cancer N Stroke N Alcohol abuse N Liver disease N Cancer, bladder N Allergy Food/Medication N Peripheral artery disease N Oxygen dependence [...] N Joint disorder, unspecified N Menopause N Drug dependence, unspecified N Back disorder N Hypothyroidism N Disorder kidney N Sickle Cell Anemia N Cancer, ovarian N Egan's Palsy N Disorder of eye N Cancer, prostate N Allergy Seasonal N Drug abuse N Disorder of urinary system N Disorder of lymph system N Radiculopathy, site unspecified N Myoneural disorder, unspecified N Nervous system disorder N ADHD N High Cholesterol N Post-herpetic neuralgia N Aneurysm, cerebral N Tinnitus, left ear N Prostate hypertrophy, benign N Disorder of skin/subcutaneous N Osteoarthritis N Disorder of ear N Ovarian cysts N Parkinson's disease N Low back pain N Carpal tunnel syndrome N Disorder of muscle N Anemia N Kidney stone N Bipolar affective disorder N Leukemia, unspecified N Diabetes N Endocrine disorder N Disorder involving the immune mechanism N Seizure N Hyperlipidemia N Lymphoma N Emphysema, unspecified N Eczema N Diverticulitis N Dementia N Lupus N Seizure disorder N Reflux/GERD N Sleep Apnea N Cancer, bone N Disorder of thyroid N Cardiac arrhythmia, unspecified N Disorder of bone N Heart Disease N Liver Disorder N Disorder of brain N Hypertension N Aneurysm, aortic N Osteoporosis N Gastroesophageal reflux (GERD) N Disease of digestive system, unspecified N Gynecological HistoryNo gynecological history recorded. Obstetrics History GPAL:G 0 P 0 0 0 0 Past Encounters Encounter ID Performer Location Encounter Start Date Encounter Closed Date Diagnosis/Indication Diagnosis SNOMED-CT Code Diagnosis ICD10 Code Diagnosis Note [id number] [address] [place] [address] 05/17/2018 10:06:58 05/17/2018 11:17:23 [id number] [address] [place] [address] 02/05/2019 11:11:01 02/05/2019 12:48:14 [id number] [address] [place] [address] 0 02/27/2019 12:30:54 02/27/2019 13:27:26 [id number] [address] [place] [address] 0 06/10/2019 11:00:06 06/10/2019 11:53:52 [id number] [address] [place] [address] 12/09/2017 08:26:42 12/09/2017 09:51:46 [id number] [address] [place] [address] 10/17/2019 13:11:34 10/17/2019 14:44:33 [id number] [address] [place] [address] 11/06/2019 16:08:26 11/06/2019 16:30:34 [id number] [address] [place] [address] 01/24/2022 08:23:16 01/24/2022 11:53:56 [id number] [address] [place] [address] 04/24/2018 08:59:05 04/24/2018 10:07:52 [id number] [address] [place] [address] 08/26/2020 13:14:17 08/26/2020 14:50:48 [id number] [address] [place] [address] 08/02/2018 11:54:27 08/02/2018 12:50:35 [id number] [address] [place] [address] 07/18/2020 11:23:35 07/18/2020 12:50:36 [id number] [address] [place] [address] 06/16/2016 12:47:45 06/16/2016 14:18:29 [id number] [address] [place] [address] 03/09/2021 18:31:21 03/09/2021 19:21:50 [id number] [address] [facility] [place] [address] 10/17/2020 14:44:06 10/17/2020 15:45:43 [id number] [address] [place] [address] 02/05/2020 17:27:17 02/05/2020 20:18:22 [id number] [address] [place] [address] 10/25/2018 14:57:35 10/25/2018 15:53:24 [id number] [address] [place] [address] 11/24/2019 14:46:22 11/24/2019 16:49:09 [id number] [address] [place] [address] 09/26/2016 19:08:06 09/26/2016 20:37:55 [id number] [address] [facility] [place] [address] 01/30/2019 11:09:39 01/30/2019 11:50:19 [id number] [address] [facility] [place] [address] 08/07/2017 17:58:06 08/07/2017 20:05:16 [id number] 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, 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 [address] [facility] [place] [address] 04/30/2022 08:20:58 04/30/2022 09:07:24 Acute conjunctivitis of bilateral eyes 2577204399 20614 H10.33 Allergic r eaction to substance 498486266 T78.40XA Health Concerns Section Related Observation LastModified by Organization Detai ls LastModified Time None Recorded Concern Status LastModified by Organization Details LastModified Time None Recorded Advance Directives Directive None Recorded Payers Encounter Date Sequence Insurance Name Policy Number Policy Coleman Covered Member ID Coleman Member ID Guarantor Name 08/26/2020 1 MEDICARE B-[place]: [facility] [employer] Justa Larsen [id number] Justa Larsen 08/26/2020 2 [place] Justa Belloorg [id number] Justa Hammermborg 10/17/2020 1 [place] [employer] Justa Belloorg [id number] Justa Hammermborg 10/17/2020 2 [place] Justa Das Malmborg [id number] Justa Malmborg 03/09/2021 1 [place] [employer] Justa Das Malmborg [id number] Justa Malmborg 03/09/2021 2 [place] Justa Das Malmborg [id number] Justa Malmborg 01/24/2022 1 [place] [employer] Justa Hammermborg [id number] [facility] 01/24/2022 2 [place] Justa Belloorg [id number] Justa Malmborg 04/30/2022 1 [place] [employer] Justa Belloorg [id number] Justa Hammermborg 04/30/2022 2 [place] Justa Belloorg [id number] [facility] Notes Date Note Type Note Provider Name and Address Organization Details Recorded Time 04/30/2022 text/html puffiness around bilateral eyes , conjunctiva redness bilateral , periorbital swelling bilateral x 1 day. 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 NP [address] [place], [address], PA - [facility] 04/30/2022 09:03:32 OBGyn Episode No OBEpisode recorded.
--- OUTSIDE RECORDS SUMMARY | 2024-06-15 15:38 | XMS_ITS | Patient Health Record ---
Author Organization [facility] [place] Address [address] [place] [address] Care Team Providers Care Health Policy Manager Name Role Phone Yoselyn NEVES, Melissa Carey Primary Care Provider Un available Ludwin Salguero Unavailable [phone] Allergies No Known Allergies Reason For Referral [...] Status Risk Notes Problem Acquired hallux valgus (01096718) Hallux valgus (acquired), left foot (M20.12) Active confirmed Problem Acquired hallux valgus (24251284) Hallux valgus (acquired), right foot (M20.11) Active confirmed Problem Polyneuropathy due to type 2 diabetes mellitus (533695653) Type 2 diabetes mellitus with diabetic polyneuropathy (E11.42) Active confirmed Problem Polyneuropathy due to diabetes mellitus type I (942068263) Type 1 diabetes mellitus with diabetic polyneuropathy (E10.42) Active confirmed Encounters Encounter Location Date Provider Diagnosis [facility] [address] [place] [address] 10/14/2023 Ludwin Salguero Plan Of Treatment Pending Test Test Name Order Date 14705-CAOB SKIN LESIONS, OVER 4 04/26/19 21 Insurance Providers Payer Name Payer Address Payer Phone Subscriber Number Group Number Insured Name Patient Relationship to Insured Coverage Start Date Coverage End Date Medicare National [employer] [address] [place] [address] [id number] Justa Larsen Self - patient is the insured Medical (General) History Medical History History ICD Code Diabetes mellitus Diabetic neuropathy asthma Back,Hip,and Knee pain Diabetic Lung disease Numbness Surgical History Surgery Date(Month/Year) back surgery 1997 Hospitalization History Reason Date(Month/[place] [facility] [place]
--- OUTSIDE RECORDS SUMMARY | 2024-06-15 15:38 | XMS_ITS ---
Author Organization [facility] Address [address] [place] [address] Care Team Providers Care Fence Installer Foreman Name Role Phone Yoselyn NEVES, Melissa Carey Primary Care Provider Un available Ludwin Salguero Unavailable [phone] REASON FOR VISIT Scheduling an apt Encounters Encounter Location Date Provider Diagnosis [facility] [address] [place] [address] 10/14/2023 Ludwin Salguero Plan Of Treatment No Information Progress Notes * TEXBeni Justa LDOB: [birth year] (63 yo F)Acc No.[id number]:10/14/2023 Patient:?Adriel Larsenalma Das :1960???Age:63 Y???Sex:Female Address:[address] [place] [address], [address] * true * Date:? Generated for Gail wahl/Kyle/eTransmitting on:?06/15/2024 03:38 PM EST
--- OUTSIDE RECORDS SUMMARY | 2024-06-15 15:39 | XMS_ITS | Clinical Summary ---
Author Organization [facility] Address [address] [place] [address] Care Team Providers Care Career Development Associate Name Role Phone Pcp, No Primary Care [...] age to complete this topic Care Teams Career Development Associate Relationship Specialty Start Date End Date Pcp, No PCP - General General Medicine 04/22/19
== END 2024-06-15 14:16 | disposition home or self-care (01) ==
PROVIDERS: PCP Internal Medicine; Visit Provider Nurse Practitioner Family
DX: G47.33 Obstructive sleep apnea (adult) (pediatric) (principal); K76.0 Fatty (change of) liver, not elsewhere classified; K21.9 Gastro-esophageal reflux disease without esophagitis; K59.04 Chronic idiopathic constipation
CPT/HCPCS: 99214; G2211

== ENCOUNTER 2024-08-05 09:50 | Outpatient (REF) | payer MEDICARE, SELFPAY ==
--- OUTSIDE RECORDS SUMMARY | 2024-08-05 11:05 | XMS_ITS | Clinical Summary ---
Author Organization [facility] Address [address] [place] [address] Care Team Providers Care Plastic Surgery Nurse Name Role Phone Pcp, No Primary Care Provider Unavailabl e Allergies No known active allergies Medications buprenorphine-na loxone (SUBOXONE) 8-2 mg per SL film DISSOLVE 2 FILMS UNT QD 0 Active traZODone (DESYREL) 100 MG tablet 0 Active nitrofurantoin monohydrate (MACROBID) 100 MG capsule TK 1 C PO BID 0 Active ibuprofen (MOTRIN) 600 MG tabletIndication s:Acute low back pain, unspecified back pain laterality, unspecified whether sciatica present Take 1 tablet (600 mg total) by mouth 4 times daily (every 6 hours) as needed for mild pain. 30 tablet 0 Active Social History Tobacco Use Types Packs/Day Years Used Date Smoking Tobacco: Never Assessed Comments Unknown Sex and Gender Information Value Date Recorded Sex Assigned at Not on file Legal Sex Female 7:03 PM EST Gender Identity Not on file Sexual Orientation [...] on patient's age to complete this topic Insurance MEDICARE PART A & B Care Teams Plastic Surgery Nurse Relationship Specialty Start Date End Date Pcp, No PCP - General General Medicine 04/22/19
--- OUTSIDE RECORDS SUMMARY | 2024-08-05 11:05 | XMS_ITS | Data Portability ---
Author Organization [facility], [address] Address [address] [place] [address] Care Team Providers Care Application Internship Name Role Phone [facility] Primary Care Provider Assessment No assessment recorded. Plan of Treatment Reminders Order Date Submit Date Provider Last Modified By Organization Details Last Modified Time Details Appointments None recorded. Lab None recorded. Referral None recorded. Procedures None recorded. Surgeries None recorded. Imaging None recorded. Medication Orders Polytrim 10,000 unit-1 mg/mL eye drops 2022 023 [facility]88, [address] [place], [address], 3 09:03:10 prednisone 20 mg tablet 2022 023 [facility], [address] [place], [address], 3 09:03:09 diphenhydra mine 25 mg capsule 2022 023 [facility], [address] [place], [address], 3 09:03:09 Patient TargetsNo targets recorded. Patient Instructions Encounter Date Encounter Id Patient Instructions Last Modified By Organization Details Last Modified Time 04/30/2022 [id number] Apply warm, mois t compresses over closed [...] on back completed KRISTA BARLOW PA - [facility] 04/30/2022 08:45:54 Gastric bypass for obesity completed ImmediatelyMIREYA BARLOW PA - [facility] 04/30/2022 08:46:07 Imaging Results None recorded. [...] Updated DateTime 3 167.64 cm 27.3 kg/m2 68645.1 1 g 97.1 [degF] 95 % 95 % 65 /min 16 /min 107 mm[Hg] 67 mm[Hg] ASHLEEFlakito YEN CHI - [facility] 08:49:33 Social History Question Answer Notes LastModified by Organizat ion Details LastModified Time Tobacco Smoking Status Current Every Day Smoker KRISTA YEN wagner PA - [facility] 04/30/2022 08:47:12 What Is Your Level Of Alcohol Consumption? None [email or web address] Information not available 04/30/2022 Have You Had Direct Contact, Or Contact During Intimacy, With Monkeypox Rash, Scabs, Or Body Fluids From A Person With Monkeypox? No [email or web address] Information not available 04/30/2022 Do You Use Any Illicit Or Recreational Drugs? No Information not available 04/30/2022 Have You Recently Traveled Abroad? No [email or web address] Information not available 04/30/2022 Sex: Unknown Functional Status None recorded. Mental Status None recorded. Family History Relationship Description Onset Age of this Age Resolved Age Notes LastModified by Organization Details LastModified Time Father No current problems or disability [email or web address] Not available 04/30 08:45:34 Mother No current problems or disability [email or web address] Not available 04/30 08:45:35 Medical History Condition [...] SNOMED-CT Code Diagnosis ICD10 Code Diagnosis Note [id number] [address] [place] [address] 05/17/2018 10:06:58 05/17/2018 11:17:23 [id number] [address] [place] [address] 02/05/2019 11:11:01 02/05/2019 12:48:14 [id number] [address] [place] [address] 0 02/27/2019 12:30:54 02/27/2019 13:27:26 [id number] [address] [place] [address] 06/10/2019 11:00:06 06/10/2019 11:53:52 [id number] [address] [place] [address] 12/09/2017 08:26:42 12/09/2017 09:51:46 [id number] [address] [place] [address] 10/17/2019 13:11:34 10/17/2019 14:44:33 [id number] [address] [place] [address] 11/06/2019 16:08:26 11/06/2019 16:30:34 [id number] [address] [place] [address] 01/24/2022 08:23:16 01/24/2022 11:53:56 [id number] [address] [place] [address] 04/24/2018 08:59:05 04/24/2018 10:07:52 [id number] [address] [place] [address] 08/26/2020 13:14:17 08/26/2020 14:50:48 [id number] [address] [place] [address] 08/02/2018 11:54:27 08/02/2018 12:50:35 [id number] [address] [place] [address] 07/18/2020 11:23:35 07/18/2020 12:50:36 [id number] [address] [place] [address] 06/16/2016 12:47:45 06/16/2016 14:18:29 [id number] [address] [place] [address] 03/09/2021 18:31:21 03/09/2021 19:21:50 [id number] [address] [facility] [place] [address] 10/17/2020 14:44:06 10/17/2020 15:45:43 [id number] [address] [place] [address] 02/05/2020 17:27:17 02/05/2020 20:18:22 [id number] [address] [place] [address] 10/25/2018 14:57:35 10/25/2018 15:53:24 [id number] [address] [facility] [address] [place] [address] 11/24/2019 14:46:22 11/24/2019 16:49:09 [id number] [address] [address] [facility] [place] [address] 09/26/2016 19:08:06 09/26/2016 20:37:55 [id number] [address] [facility] [address] [place] [address] [place] [address] 01/30/2019 11:09:39 01/30/2019 11:50:19 [id number] [address] [facility] [place] [address] 08/07/2017 17:58:06 08/07/2017 20:05:16 [id number] 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, 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 ROOM OPERATOR [address] [address] [facility] [address] [address] 04/30/2022 08:20:58 04/30/2022 09:07:24 Acute conjunctivitis of bilateral eyes 9112987595 05809 H10.33 Allergic r eaction to substance 848097650 T78.40XA Health Concerns Section Related Observation LastModified by Organization Detai ls LastModified Time None Recorded Concern Status LastModified by Organization Details LastModified Time None Recorded Advance Directives Directive None Recorded Payers Encounter Date Sequence Insurance Name Policy Number Policy Coleman Covered Member ID Coleman Member ID Guarantor Name 08/26/2020 1 [place] [facility] [employer] Justa Larsen [id number] Justa Ritchieg 08/26/2020 2 [place] Justa Belloorg [id number] Justa Hammermborg 10/17/2020 1 [place] [employer] Justa Belloorg [id number] Justa Belloorg 10/17/2020 2 [place] Justa Belloorg [id number] Justa Hammermborg 03/09/2021 1 [place] [employer] Justa Belloorg [id number] Justa Bell[place]g 03/09/2021 2 [place] Justa Belloorg [id number] Justa Ritchie 01/24/2022 1 [place] [employer] Justa Belloorg [id number] [facility] 01/24/2022 2 [place] Justa Belloorg [id number] Justa Ritchieg 04/30/2022 1 [place] [employer] Justa Belloorg [id number] Justa Ritchieg 04/30/2022 2 [place] Justa Belloorg [id number] [facility] Notes Date Note Type Note Provider Name and Address Organization Details Recorded Time 04/30/2022 text/html puffiness around bilateral eyes , conjunctiva redness bilateral , periorbital swelling bilateral x 1 day. 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 NP [address] [place], [address], [place] - [facility] 04/30/2022 09:03:32 OBGyn Episode No OBEpisode recorded.
[2024-08-05 13:34] LABS: Estimated Average Glucose 146 mg/dL; Hemoglobin A1C 182.8251 umol/L; Hemoglobin A1c % 6.7 % (<6.0); Total Hemoglobin (HGBA1C) 3695.9055 umol/L
[2024-08-05 13:51] LABS: Alanine Aminotransferase 45 U/L (0-31); Anion Gap 15 (12-20); Aspartate Amino Transferase 48 U/L (5-31); Blood Urea Nitrogen 21 mg/dL (9-16); Calcium 9.2 mg/dL (8.4-10.2); Carbon Dioxide 26 mmol/L (22-29); Chloride 100 mmol/L (96-108); Cholesterol 240 mg/dL (<200); Estimated Glomerular Filt Rate > 60; Glucose Fasting 165 mg/dL (60-99); HDL Cholesterol 44 mg/dL (>40); Potassium 4.2 mmol/L (3.3-5.1); Sodium 137 mmol/L (135-145); Triglycerides 466 mg/dL (<150)
[2024-08-05 14:02] LABS: Vitamin D 25-OH Total 33.9 ng/mL (>30)
== END 2024-08-05 09:51 | disposition home or self-care (01) ==
LOC: HO.HMGCLDS 09:50
PROVIDERS: PCP Internal Medicine; Visit Provider Internal Medicine
DX: E78.5 Hyperlipidemia, unspecified (principal); E11.40 Type 2 diabetes mellitus with diabetic neuropathy, unspecified; E66.811 Obesity, class 1; K76.0 Fatty (change of) liver, not elsewhere classified
CPT/HCPCS: 36415; 80048; 80061; 82306; 83036; 84450; 84460

== ENCOUNTER 2024-08-07 10:52 | Outpatient (AMB) | payer MEDICARE, SELFPAY ==
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
--- OUTSIDE RECORDS SUMMARY | 2024-08-07 11:56 | XMS_ITS | Data Portability ---
Author Organization [facility], [address] Address [address] [place] [address] Care Team Providers Care Gold Marker Name Role Phone [facility] Primary Care Provider Assessment No assessment recorded. Plan of Treatment Reminders Order Date Submit Date Provider Last Modified By Organization Details Last Modified Time Details Appointments None recorded. Lab None recorded. Referral None recorded. Procedures None recorded. Surgeries None recorded. Imaging None recorded. Medication Orders Polytrim 10,000 unit-1 mg/mL eye drops 2022 023 [id number], [address] [place], [address], 3 09:03:10 prednisone 20 mg tablet 2022 023 [id number], [address] [place], [address], 3 09:03:09 diphenhydra mine 25 mg capsule 2022 023 [id number], [address] [place], [address], 3 09:03:09 Patient TargetsNo targets recorded. Patient Instructions Encounter Date Encounter Id Patient Instructions Last Modified By Organization Details Last Modified Time 04/30/2022 [id number] Apply warm, mois t compresses over closed [...] on back completed KRISTA BARLOW PA - [facility] 04/30/2022 08:45:54 Gastric bypass for obesity completed [employer] ScientificMIREYA BARLOW PA - [facility] 04/30/2022 08:46:07 Imaging Results None recorded. [...] Updated DateTime 3 167.64 cm 27.3 kg/m2 56881.1 1 g 97.1 [degF] 95 % 95 % 65 /min 16 /min 107 mm[Hg] 67 mm[Hg] ASHLEEFlakito YEN CHI - [facility] 08:49:33 Social History Question Answer Notes LastModified by Organizat ion Details LastModified Time Tobacco Smoking Status Current Every Day Smoker KRISTA YEN wagner PA - [facility] 04/30/2022 08:47:12 What Is Your Level Of Alcohol Consumption? None [email or web address] Information not available 04/30/2022 Have You Had Direct Contact, Or Contact During Intimacy, With Monkeypox Rash, Scabs, Or Body Fluids From A Person With Monkeypox? No [email or web address] Information not available 04/30/2022 Do You Use Any Illicit Or Recreational Drugs? No [email or web address] Information not available 04/30/2022 Have You Recently Traveled Abroad? No Information not available 04/30/2022 Sex: Unknown Functional Status None recorded. Mental Status None recorded. Family History Relationship Description Onset Age of this Age Resolved Age Notes LastModified by Organization Details LastModified Time Father No current problems or disability [email or web address] Not available 04/30 08:45:34 Mother No current problems or disability [email or web address] Not available 04/30 08:45:35 Medical History Condition [...] SNOMED-CT Code Diagnosis ICD10 Code Diagnosis Note [id number] [address] [place] [phone] 05/17/2018 10:06:58 05/17/2018 11:17:23 [id number] [address] [facility] [place] [address] 02/05/2019 11:11:01 02/05/2019 12:48:14 [id number] [address] [place] [address] 02/27/2019 12:30:54 02/27/2019 13:27:26 [id number] [address] [place] [address] 06/10/2019 11:00:06 06/10/2019 11:53:52 [id number] [address] [place] [address] 12/09/2017 08:26:42 12/09/2017 09:51:46 [id number] [address] [place] [address] 10/17/2019 13:11:34 10/17/2019 14:44:33 [id number] [address] [place] [address] 11/06/2019 16:08:26 11/06/2019 16:30:34 [id number] [address] [place] [address] 01/24/2022 08:23:16 01/24/2022 11:53:56 [id number] [address] [place] [address] 04/24/2018 08:59:05 04/24/2018 10:07:52 [id number] [address] [place] [address] 08/26/2020 13:14:17 08/26/2020 14:50:48 [id number] [address] [place] [address] 08/02/2018 11:54:27 08/02/2018 12:50:35 [id number] [address] [place] [address] 07/18/2020 11:23:35 07/18/2020 12:50:36 [id number] [address] [place] [address] 06/16/2016 12:47:45 06/16/2016 14:18:29 [id number] [address] [place] [address] 03/09/2021 18:31:21 03/09/2021 19:21:50 [id number] [address] [place] [address] 10/17/2020 14:44:06 10/17/2020 15:45:43 [id number] [address] [place] [address] 02/05/2020 17:27:17 02/05/2020 20:18:22 [id number] [address] [place] [address] 10/25/2018 14:57:35 10/25/2018 15:53:24 [id number] [address] [place] [address] 11/24/2019 14:46:22 11/24/2019 16:49:09 [id number] [address] [place] [address] 09/26/2016 19:08:06 09/26/2016 20:37:55 [id number] [address] [place] [address] [place] [address] 01/30/2019 11:09:39 01/30/2019 11:50:19 [id number] [address] [place] [address] 08/07/2017 17:58:06 08/07/2017 20:05:16 [id number] 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, OPERATING ROOM MANAGER [address] [facility] [address] [address] 04/30/2022 08:20:58 04/30/2022 09:07:24 Acute conjunctivitis of bilateral eyes [id number] 85760 H10.33 Allergic r eaction to substance [id number] T78.40XA Health Concerns Section Related Observation LastModified by Organization Detai ls LastModified Time None Recorded Concern Status LastModified by Organization Details LastModified Time None Recorded Advance Directives Directive None Recorded Payers Encounter Date Sequence Insurance Name Policy Number Policy Coleman Covered Member ID Coleman Member ID Guarantor Name 08/26/2020 1 [place] B-[place]: [facility] [employer] Justa Larsen [id number] Justa Ritchieg 08/26/2020 2 [place] Justa Belloorg [id number] Justa Hammermborg 10/17/2020 1 [place] [employer] Justa Belloorg [id number] Justa Belloorg 10/17/2020 2 [place] Justa Belloorg [id number] Justa Hammermborg 03/09/2021 1 [place] [employer] Justa Belloorg [id number] Justa Belloorg 03/09/2021 2 [place] Justa [place] [id number] Justa Ritchie 01/24/2022 1 [place] [employer] Justa Belloorg [id number] [facility] 01/24/2022 2 [place] Justa Bell[place]g [id number] Justa Ritchieg 04/30/2022 1 [place] [employer] Justa Belloorg [id number] Justa Ritchieg 04/30/2022 2 [place] Justa Belloorg [id number] [facility] Notes Date Note Type Note Provider Name and Address Organization Details Recorded Time 04/30/2022 text/html puffiness around bilateral eyes , conjunctiva redness bilateral , periorbital swelling bilateral x 1 day. 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 NP [address] [place], [address], PA - [facility] 04/30/2022 09:03:32 OBGyn Episode No OBEpisode recorded.
--- OUTSIDE RECORDS SUMMARY | 2024-08-07 11:56 | XMS_ITS | Clinical Summary ---
Author Organization [facility] Address [address] [place] [address] Care Team Providers Care Aerial Gunner Name Role Phone Pcp, No Primary Care [...] MEDICARE PART A & B Care Teams Aerial Gunner Relationship Specialty Start Date End Date Pcp, No PCP - General General Medicine 04/22/19
== END 2024-08-07 15:12 | disposition home or self-care (01) ==
LOC: HO.HMCC 10:52
PROVIDERS: PCP Internal Medicine; Visit Provider Internal Medicine
DX: E78.2 Mixed hyperlipidemia (principal); E11.40 Type 2 diabetes mellitus with diabetic neuropathy, unspecified

== ENCOUNTER → 2024-08-07 10:52 | Outpatient (BNVA) | payer MEDICARE, SELFPAY | PROVIDERS: PCP Internal Medicine; Visit Provider Internal Medicine | DX: Z13.89 Encounter for screening for other disorder (principal) ==

== ENCOUNTER → 2024-09-01 10:52 | Outpatient (REF) | payer MEDICARE, SELFPAY ==
--- NOTE | 2024-09-01 11:01 | ECG_ITS ---
Test Reason : E78.2 - Mixed hyperlipidemia Blood Pressure : */* mmHG Vent. Rate : 86 BPM Atrial Rate : 86 BPM P-R Int : 128 ms QRS Dur : 78 ms QT Int : 358 ms P-R-T Axes : 74 60 58 degrees QTcB Int : 428 ms Normal sinus rhythm Nonspecific ST abnormality Abnormal ECG When compared with ECG of 23-Apr-2024 18:42, No significant change was found Referred By: Melissa Topete Electronically Signed By: RAFAELA YOUNG MD
--- OUTSIDE RECORDS SUMMARY | 2024-09-01 12:18 | XMS_ITS | Data Portability ---
Author Organization [facility], [address] Address [address] [place] [address] Care Team Providers Care Mold Construction Supervisor Name Role Phone [facility] Primary Care Provider Assessment No assessment recorded. Plan of Treatment Reminders Order Date Submit Date Provider Last Modified By Organization Details Last Modified Time Details Appointments None recorded. Lab None recorded. Referral None recorded. Procedures None recorded. Surgeries None recorded. Imaging None recorded. Medication Orders Polytrim 10,000 unit-1 mg/mL eye drops 2022 023 [facility]armacy #[id number], [address] [place], [address], 3 09:03:10 prednisone 20 mg tablet 2022 023 [facility]/Pharmacy #[id number], [address] [place], [address], 3 09:03:09 diphenhydra mine 25 mg capsule 2022 023 [facility]/Pharmacy #[id number], [address] [place], [address], 3 09:03:09 Patient TargetsNo targets recorded. Patient Instructions Encounter Date Encounter Id Patient Instructions Last Modified By Organization Details Last Modified Time 04/30/2022 [id number] Apply warm, mois t compresses over closed [...] on back completed KRISTA BARLOW PA - [facility] 04/30/2022 08:45:54 Gastric bypass for obesity completed [employer]YA BARLOW PA - [facility] 04/30/2022 08:46:07 Imaging Results None recorded. [...] Updated DateTime 3 167.64 cm 27.3 kg/m2 73145.1 1 g 97.1 [degF] 95 % 95 % 65 /min 16 /min 107 mm[Hg] 67 mm[Hg] KRISTA YEN CHI - [facility] 08:49:33 Social History Question Answer Notes LastModified by Organizat ion Details LastModified Time Tobacco Smoking Status Current Every Day Smoker KRISTA OSORIOSHARON wagner PA - [facility] 04/30/2022 08:47:12 Have You Had Direct Contact, Or Contact During Intimacy, With Monkeypox Rash, Scabs, Or Body Fluids From A Person With Monkeypox? No [email or web address] Information not available 04/30/2022 Have You Recently Traveled Abroad? No Information not available 04/30/2022 Sex: Unknown Functional Status Question Answer Note LastModified by Organizat ion Details LastModified Time Do you use any illicit or recreational drugs? No [email or web address] Information not available 04/30/2022 What is your level of alcohol consumption? None [email or web address] Information not available 04/30/2022 Mental Status None recorded. Family History Relationship Description Onset Age of this Age Resolved Age Notes LastModified by Organization Details LastModified Time Father No current problems or disability [email or web address] Not available 04/30 08:45:34 Mother No current problems or disability [email or web address] Not available 04/30 08:45:35 Medical History Condition [...] SNOMED-CT Code Diagnosis ICD10 Code Diagnosis Note [id number] [facility] [address] [place] [address] 05/17/2018 10:06:58 05/17/2018 11:17:23 [id number] [facility] [address] [place] [address] 02/05/2019 11:11:01 02/05/2019 12:48:14 [id number] [address] [address] [place] [address] 02/27/2019 12:30:54 02/27/2019 13:27:26 [id number] [address] [facility] [address] [facility] [place] [address] 06/10/2019 11:00:06 06/10/2019 11:53:52 [id number] [address] [facility] [address] [place] [address] 12/09/2017 08:26:42 12/09/2017 09:51:46 [id number] [address] [facility] [address] [address] [place] [address] 10/17/2019 13:11:34 10/17/2019 14:44:33 [id number] [address] [facility] [address] [place] [address] 11/06/2019 16:08:26 11/06/2019 16:30:34 [id number] [address] [facility] [address] [place] [address] 01/24/2022 08:23:16 01/24/2022 11:53:56 [id number] [address] [facility] [address] [place] [address] 04/24/2018 08:59:05 04/24/2018 10:07:52 [id number] [address] [facility] [place] [address] 08/26/2020 13:14:17 08/26/2020 14:50:48 [id number] [address] [facility] [address] [place] [address] 08/02/2018 11:54:27 08/02/2018 12:50:35 [id number] [address] [facility] [place] [address] 07/18/2020 11:23:35 07/18/2020 12:50:36 [id number] [address] [facility] [address] [place] [address] 06/16/2016 12:47:45 06/16/2016 14:18:29 [id number] [address] [facility] [address] [address] [place] [address] 03/09/2021 18:31:21 03/09/2021 19:21:50 [id number] [address] [facility] [address] [place] [address] 10/17/2020 14:44:06 10/17/2020 15:45:43 [id number] [address] [facility] [address] [place] [address] 02/05/2020 17:27:17 02/05/2020 20:18:22 [id number] [address] [facility] [address] [place] [address] 10/25/2018 14:57:35 10/25/2018 15:53:24 [id number] [address] [facility] [address] [place] [address] 11/24/2019 14:46:22 11/24/2019 16:49:09 [id number] [address] [facility] [address] [place] [address] 09/26/2016 19:08:06 09/26/2016 20:37:55 [id number] [address] [facility] [address] [place] [address] 01/30/2019 11:09:39 01/30/2019 11:50:19 [id number] [address] [facility] [address] [place] [address] 08/07/2017 17:58:06 08/07/2017 20:05:16 [id number] 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 NP [address] [place] [address] 04/30/2022 08:20:58 04/30/2022 09:07:24 Acute conjunctivitis of bilateral eyes [id number] 67530 H10.33 Allergic r eaction to substance [id number] T78.40XA Health Concerns Section Related Observation LastModified by Organization Detai ls LastModified Time None Recorded Concern Status LastModified by Organization Details LastModified Time None Recorded Advance Directives Directive None Recorded Payers Insurance Date Sequence Insurance Name Policy Number Policy Coleman Covered Member ID Coleman Member ID Guarantor Name 04/30/2022 1 MEDICARE B-ND: [employer] [facility] [id number] [facility] 04/30/2022 2 [facility]ICA[facility]-ND[facility] Justa Ritchie [id number] [facility] 04/30/2022 NORIDIAN - SPECIALITY CLAIMS (MEDICARE [facility]) Justa Larsen [id number] [facility] Notes Date Note Type Note Provider Name and Address Organization Details Recorded Time 04/30/2022 text/html puffiness around bilateral eyes , conjunctiva redness bilateral , periorbital swelling bilateral x 1 day. 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 NP [address] [place], [address], PA - [facility] 04/30/2022 09:03:32 OBGyn Episode No OBEpisode recorded.
--- OUTSIDE RECORDS SUMMARY | 2024-09-01 12:18 | XMS_ITS | Clinical Summary ---
Author Organization [facility] Address [address] [place] [address] Care Team Providers Care Technology Training Associate Name Role Phone Pcp, No Primary [...] Zoster (Shingles) Vaccine (1 of 2) 2012 COVID-19 Vaccine (1 - 2023-2 5 season) 2023 Influenza Vaccine 11/20/2024 RSV Vaccine 60 years and old er and Patients (1 - 1-dose 75+ series) 2037 Hepatitis B Vaccines Aged Out No long er eligible based on patient's age to complete this topic Insurance MEDICARE PART A & B Care Teams Technology Training Associate Relationship Specialty Start Date End Date Pcp, No PCP - General General Medicine 04/22/19
== END ==
LOC: HO.CARD 10:52
PROVIDERS: PCP Internal Medicine; Visit Provider Internal Medicine
DX: Z01.818 Encounter for other preprocedural examination (principal); E78.2 Mixed hyperlipidemia
CPT/HCPCS: 93005

== ENCOUNTER → 2024-09-01 11:01 | Outpatient (BNV) | payer MEDICARE, SELFPAY | PROVIDERS: PCP Internal Medicine; Visit Provider Internal Medicine Cardiovascular Disease | DX: R94.31 Abnormal electrocardiogram [ECG] [EKG] (principal); E78.2 Mixed hyperlipidemia | CPT/HCPCS: 93010 ==

== ENCOUNTER → 2024-09-29 15:46 | Outpatient (BNV) | payer MEDICARE, SELFPAY | PROVIDERS: PCP Internal Medicine; Visit Provider Radiology Diagnostic Radiology | DX: R07.9 Chest pain, unspecified (principal) | CPT/HCPCS: 71045 ==

== ENCOUNTER 2024-09-29 15:47 | Emergency (ER) | payer MEDICARE, SELFPAY ==
--- NOTE | ~2024-09-29 | XR_ITS ---
EXAMINATION: XR CHEST CLINICAL INFORMATION: multiple complaints, inc chest pain COMPARISON: 04/20/2024 TECHNIQUE: Frontal view of the chest was obtained. FINDINGS: Heart size normal. Mediastinal and hilar structures are unremarkable. Lungs are clear and well aerated. Anterior plate and screws fuse the lower cervical spine. XR/XR chest 1V IMPRESSION: No acute disease Electronically signed by: Dat Auguste MD 09/29/2024 05:06 PM EDT
[2024-09-29 16:16] VITALS: BP 126/66; PULSE 93; RESP 20; TEMP 36.9; O2SAT 95; BMI 35.4
--- NOTE | 2024-09-29 16:23 | ECG_ITS ---
Test Reason : multiple complaints, inc chest pain Blood Pressure : */* mmHG Vent. Rate : 81 BPM Atrial Rate : 81 BPM P-R Int : 124 ms QRS Dur : 80 ms QT Int : 380 ms P-R-T Axes : 83 60 51 degrees QTcB Int : 441 ms Normal sinus rhythm Nonspecific ST abnormality Abnormal ECG When compared with ECG of 01-Sep-2024 11:06, No significant change was found Referred By: Generic ED Physician Electronically Signed By: RAFAELA YOUNG MD
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
[2024-09-29 16:41] LABS: MANUAL DIFF FLAG NO
[2024-09-29 16:43] LABS: Basophils Percent Auto 0.3 % (0-2); Eosinophils Percent Auto 0.4 % (0-4); Hematocrit 44.8 % (37.0-47.0); Hemoglobin 14.5 g/dl (12.0-16.0); Imm Gran Abs Auto 0.02 X10*3/uL (0.00-0.03); Imm Gran Pct Auto 0.3 % (0.0-0.4); Lymphocytes Absolute Auto 1.9 X10*3/uL (1.2-4.9); Lymphocytes Percent Auto 27.6 % (20-40); Mean Corpuscular HGB Conc 32.4 g/dl (31.0-35.0); Mean Corpuscular Hemoglobin 27.5 pg (27.0-33.0); Mean Platelet Volume 10.1 fL (9.4-12.3); Monocytes Absolute Auto 0.4 X10*3/uL (0.1-1.2); Monocytes Percent Auto 6.3 % (2-11); Neutrophils Absolute Auto 4.6 x10*3/uL (2.0-8.3); Neutrophils Percent Auto 65.1 % (45-73); Platelet Count 183 X10*3/uL (160-400); Red Blood Count 5.27 X10*6/uL (4.20-5.50); Red Cell Distribution Width 13.9 % (11.0-16.0)
[2024-09-29 16:53] LABS: D Dimer High Sensitivity 223 NG/ML
[2024-09-29 16:54] LABS: Ethanol 12 mg/dL
[2024-09-29 16:57] LABS: Alanine Aminotransferase 112 U/L (0-31); Alkaline Phosphatase 115 U/L (39-117); Anion Gap 14 (12-20); Aspartate Amino Transferase 73 U/L (5-31); Bilirubin Direct 0.1 mg/dL (0.0-0.5); Bilirubin Total 0.4 mg/dL (0.0-1.0); Blood Urea Nitrogen 12 mg/dL (9-16); Carbon Dioxide 24 mmol/L (22-29); Chloride 102 mmol/L (96-108); Creatinine Clr Calc Pharmacy 94.4; Estimated Glomerular Filt Rate > 60; Glucose Random 240 mg/dL (60-115); Lipase 41 U/L (8-78); Potassium 3.7 mmol/L (3.3-5.1); Sodium 136 mmol/L (135-145); Total Protein 7.5 g/dL (6.5-8.0)
[2024-09-29 17:03] LABS: Troponin-I High Sensitivity 3.9 ng/L (<3.5-17.0)
--- NOTE | 2024-09-29 19:08 | PC.NURSE ---
NO ANSWER WHEN CALLED FROM AT 1900
[2024-09-29 21:20] VITALS: BP 122/70; PULSE 82; RESP 18; TEMP 36.6; O2SAT 95
[2024-09-29] MEDS: Acetaminophen 325 MG TABLET 975 MG PO (21:20)
--- NOTE | 2024-09-29 21:23 | PC.NURSE ---
ambulated into triage room using walker, in no apparent distress, asked how much longer the wait is going to be. requested tylenol for 10/10 pain to head. administered per jun. given urine cup for sample.
[2024-09-29 21:42] LABS: Appearance Urine Clear; Color Urine Dark Yellow; Glucose Urine UA Negative (Negative); Leukocyte Esterase Urine Trace (Negative); Nitrite Urine Positive (Negative); PH 5.5 (5.0-9.0); Specific Gravity - Urine 1.025 (1.005-1.025); UMIC TRIGGER UACC YES; Urine Blood Negative (Negative); Urine Ketones Trace mg/dL (Negative); Urine Protein Negative (Neg-Trace)
[2024-09-29 21:49] LABS: Bacteria Urine 4+ (None Seen); Hyaline Casts Urine 0-2 /LPF (0-2); RBC Urine 0-2 /HPF (0-2); Squamous Epithelial Cell Urine 0-2 /HPF (0-2); UACC Culture Trigger YES; WBC Urine 0-5 /HPF (0-5)
[2024-09-29 22:28] VITALS: BP 132/54; PULSE 73; RESP 16; TEMP 36.6; O2SAT 95
--- OUTSIDE RECORDS SUMMARY | 2024-09-29 22:32 | XMS_ITS | Data Portability ---
Author Organization [facility], [address] Address [address] [place] [address] Care Team Providers Care Orthopedic Technician Name Role Phone [facility] Primary Care Provider Assessment No assessment recorded. Plan of Treatment Reminders Order Date Submit Date Provider Last Modified By Organization Details Last Modified Time Details Appointments None recorded. Lab None recorded. Referral None recorded. Procedures None recorded. Surgeries None recorded. Imaging None recorded. Medication Orders Polytrim 10,000 unit-1 mg/mL eye drops [address] [facility] #[id number], [address] [place], [address], 3 09:03:10 prednisone 20 mg tablet [address] [facility] #[id number], [address] [place], [address], 3 09:03:09 diphenhydra mine 25 mg capsule [address] [facility] #[id number], [address] [place], [address], 3 09:03:09 Patient TargetsNo targets recorded. Patient Instructions Encounter Date Encounter Id Patient Instructions Last Modified By Organization Details Last Modified Time 04/30/2022 [id number] Apply warm, mois t compresses over closed [...] on back completed KRISTA BARLOW PA - [facility] 04/30/2022 08:45:54 Gastric bypass for obesity completed QC CorpMIREYA BARLOW PA - [facility] 04/30/2022 08:46:07 Imaging Results None recorded. [...] Updated DateTime 3 167.64 cm 27.3 kg/m2 68779.1 1 g 97.1 [degF] 95 % 95 [...] Fluids From A Person With Monkeypox? No [email or web address] Information not available 04/30/2022 Have You Recently Traveled Abroad? No [email or web address] Information not available 04/30/2022 Sex: Unknown Functional Status Question Answer Note LastModified by Organizat ion Details LastModified Time Do you use any illicit or recreational drugs? No [email or web address] Information not available 04/30/2022 What is your level of alcohol consumption? None [email or web address] Information not available 04/30/2022 Mental Status None recorded. Family History Relationship Description Onset Age of this Age Resolved Age Notes LastModified by Organization Details LastModified Time Father No current problems or disability [email or web address] Not available 04/30 08:45:34 Mother No current problems or disability [email or web address] Not available 04/30 08:45:35 Medical History Condition [...] SNOMED-CT Code Diagnosis ICD10 Code Diagnosis Note [id number] [facility] [address] [place] [address] 05/17/2018 10:06:58 05/17/2018 11:17:23 [id number] [facility] [address] [place] [address] 02/05/2019 11:11:01 02/05/2019 12:48:14 [id number] [address] [address] [place] [address] 02/27/2019 12:30:54 02/27/2019 13:27:26 [id number] [facility] [address] [address] [place] [address] 06/10/2019 11:00:06 06/10/2019 11:53:52 [id number] [address] [address] [address] [place] [address] 12/09/2017 08:26:42 12/09/2017 09:51:46 [id number] [address] [address] [address] [place] [address] 10/17/2019 13:11:34 10/17/2019 14:44:33 [id number] [address] [address] [address] [place] [address] 11/06/2019 16:08:26 11/06/2019 16:30:34 [id number] [address] [address] [address] [place] [address] 01/24/2022 08:23:16 01/24/2022 11:53:56 [id number] [address] [address] [address] [place] [address] 04/24/2018 08:59:05 04/24/2018 10:07:52 [id number] [address] [address] [address] [place] [address] 08/26/2020 13:14:17 08/26/2020 14:50:48 [id number] [address] [address] [address] [place] [address] 08/02/2018 11:54:27 08/02/2018 12:50:35 [id number] [address] [address] [address] [place] [address] 07/18/2020 11:23:35 07/18/2020 12:50:36 [id number] [address] [address] [facility] [address] [place] [address] 06/16/2016 12:47:45 06/16/2016 14:18:29 [id number] [address] [address] [address] [place] [address] 03/09/2021 18:31:21 03/09/2021 19:21:50 [id number] [address] [address] [address] [place] [address] 10/17/2020 14:44:06 10/17/2020 15:45:43 [id number] [address] [address] [address] [place] [address] 02/05/2020 17:27:17 02/05/2020 20:18:22 [id number] [address] [address] [address] [place] [address] 10/25/2018 14:57:35 10/25/2018 15:53:24 [id number] [address] [address] [address] [place] [address] 11/24/2019 14:46:22 11/24/2019 16:49:09 [id number] [address] [address] [address] [place] [address] 09/26/2016 19:08:06 09/26/2016 20:37:55 [id number] [address] [address] [address] [place] [address] 01/30/2019 11:09:39 01/30/2019 11:50:19 [id number] [address] [address] [address] [place] [address] 08/07/2017 17:58:06 08/07/2017 20:05:16 [id number] 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 NP [address] [address] [place] [address] 04/30/2022 08:20:58 04/30/2022 09:07:24 Acute conjunctivitis of bilateral eyes [id number] 81697 H10.33 Allergic r eaction to substance 273286995 T78.40XA Health Concerns Section Related Observation LastModified by Organization Detai ls LastModified Time None Recorded Concern Status LastModified by Organization Details LastModified Time None Recorded Advance Directives Directive None Recorded Payers Insurance Date Sequence Insurance Name Policy Number Policy Coleman Covered Member ID Coleman Member ID Guarantor Name 04/30/2022 1 MEDICARE B-PA: [employer] [facility] [id number] [facility] 04/30/2022 2 [facility]ID[facility] Ritchie [id number] [facility] 04/30/2022 NORIDIAN - SPECIALITY CLAIMS (MEDICARE [facility] A) Justa Larsen [id number] [facility] Notes Date Note Type Note Provider Name and Address Organization Details Recorded Time 04/30/2022 text/html puffiness around bilateral eyes , conjunctiva redness bilateral , periorbital swelling bilateral x 1 day. 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 NP [address] [place], [address], [place] - [facility] 04/30/2022 09:03:32 OBGyn Episode No OBEpisode recorded.
[2024-09-29] MEDS: Albuterol Sulfate 90 MCG 8 GM INHALER 8 PUFF INHALE (22:52)
[2024-09-29] MEDS: Ketorolac Tromethamine 30 MG/ML VIAL IM (22:52)
[2024-09-29] MEDS: Morphine Sulfate Immed Release 15 MG TABLET 30 MG PO (22:52)
[2024-09-29 22:56] VITALS: PULSE 78; RESP 22; O2SAT 92
[2024-09-29 23:41] VITALS: BP 127/59; PULSE 75; RESP 16; TEMP 36.6; O2SAT 92
[2024-09-29 23:44] VITALS: BP 127/59; PULSE 75; RESP 16; TEMP 36.6; O2SAT 92
== END 2024-09-29 23:44 | disposition home or self-care (01) ==
PROVIDERS: Emergency Medicine; Emergency Provider Emergency Medicine; PCP Internal Medicine
DX: M54.50 Low back pain, unspecified (principal); R06.02 Shortness of breath; R05.9 Cough, unspecified; R94.31 Abnormal electrocardiogram [ECG] [EKG]; F17.210 Nicotine dependence, cigarettes, uncomplicated; Z79.899 Other long term (current) drug therapy; Z51.81 Encounter for therapeutic drug level monitoring
CPT/HCPCS: 36415; 71045; 80048; 80076; 80307; 81001; 83690; 84484; 85025; 85379; 87086; 87088; 87186; 93005; 94640; 96372; 99284; 99285; J1885

== ENCOUNTER → 2024-09-29 16:23 | Outpatient (BNV) | payer MEDICARE, SELFPAY | PROVIDERS: Emergency Provider Emergency Medicine; PCP Internal Medicine; Visit Provider Internal Medicine Cardiovascular Disease | DX: R94.31 Abnormal electrocardiogram [ECG] [EKG] (principal); R07.9 Chest pain, unspecified | CPT/HCPCS: 93010 ==

== ENCOUNTER 2024-10-25 12:32 | Emergency (ER) | payer MEDICARE, SELFPAY ==
--- NOTE | ~2024-10-25 | CT_ITS ---
CLINICAL HISTORY: fall with head strike CT cervical spine without contrast. COMPARISON: CT cervical spine dated 04/23/24 at 20:45 EST FINDINGS: Anterior cervical fusion hardware bridges the C5, C6 and C7 vertebral body levels. No evidence of hardware loosening or failure. Intervertebral disc spacer present at C4-C5. Vertebral body heights are maintained. No evidence of acute vertebral body injury. Suture material present at the right lung apex. Calcified plaque present at the carotid bulbs bilaterally. Visualized intracranial structures are unremarkable. C2-C3: Facet joint arthrosis. C3-C4: Anterior marginal osteophytes. Posterior disc osteophyte complex. Uncovertebral joint hypertrophy. Facet joint arthrosis. Moderate left and severe right neural foraminal narrowing. C4-C5: Fusion of the vertebral bodies anteriorly. Uncovertebral joint hypertrophy. Moderate bilateral neural foraminal narrowing. C5-C6: Fusion of the vertebral bodies anteriorly. Uncovertebral joint hypertrophy. Mild bilateral neural foraminal narrowing. C6-C7: Fusion of the vertebral bodies anteriorly. Mild left neural foraminal narrowing. IMPRESSION: 1. No evidence of acute injury to the cervical spine. 2. Stable anatomic alignment of anteriorly fused C5 through C7 levels without evidence of hardware complication. This document has been electronically signed by: Dave Crawford MD on 10/25/2024 14:08:45
--- NOTE | ~2024-10-25 | CT_ITS ---
CLINICAL HISTORY: fall with head strike CT head without contrast. COMPARISON: CT head dated 04/23/24 at 20:45 EST FINDINGS: Fluid present at the base of the left mastoid air cells, similar to prior imaging. Right mastoid air cells are clear. Mild mucosal thickening present within the right maxillary sinus. No calvarial fracture. No evidence of mass or mass effect. No intracranial hemorrhage or abnormal extra-axial fluid collection. No hydrocephalus. Basilar cisterns are patent. Posterior fossa is unremarkable. IMPRESSION: 1. No acute intracranial findings. This document has been electronically signed by: Dave Crawford MD on 10/25/2024 14:03:39
--- NOTE | ~2024-10-25 | XR_ITS ---
CLINICAL HISTORY: fall from ladder ; best images obtained with PT body habitus, pain level and cooperativity with exam requirements. Three views of the lumbar spine. COMPARISON: XR lumbar spine dated 04/23/24 at 16:54 EST FINDINGS: Limited lateral imaging with facet joints outside the field of view. Pain pump overlies the left hemipelvis. Surgical clips in the left upper quadrant. Posterior spinal fixation hardware with intervertebral disc spacers bridges the L4-5 level. No evidence of hardware loosening or failure. Five wxo-[id number]-awskzdv lumbar type vertebral bodies. Straightening of the normal lumbar lordosis. Vertebral body heights are maintained. Multilevel marginal osteophytes. Disc space height loss in the upper lumbar spine. Vacuum disc phenomena present at L2-L3. Visualized bones of the pelvis appear intact. IMPRESSION: 1. Technically limited study with portions of the facet joints outside the field of view on lateral imaging. Within limits of study, no evidence of acute injury to the lumbar spine. 2. Stable anatomic alignment of posteriorly fixated lower lumbar spine without evidence of hardware complication. 3. Advanced multilevel degenerative changes of the lumbar spine, similar to prior imaging. This document has been electronically signed by: Dave Crawford MD on 10/25/2024 14:02:40
--- NOTE | ~2024-10-25 | XR_ITS ---
CLINICAL HISTORY: fall from ladder ; best images obtained with PT body habitus, pain level and cooperativity with exam requirements. Three views of the thoracic spine. COMPARISON: XR thoracic spine dated 07/16/23 at 11:16 EDT FINDINGS: Anterior cervical fusion hardware along the lower cervical spine. Mild rightward curvature of the lower thoracic spine. Vertebral body heights are maintained. Multilevel marginal osteophytes most pronounced in the midthoracic spine. Vertebral body heights are maintained. No evidence of acute vertebral body injury. Visualized portions of the lungs are unremarkable. IMPRESSION: 1. No radiographic evidence of acute injury to the thoracic spine. This document has been electronically signed by: Dave Crawford MD on 10/25/2024 14:00:31
[2024-10-25 12:39] VITALS: BP 128/67; PULSE 99; RESP 16; TEMP 36.6; O2SAT 96; BMI 31.8
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
[2024-10-25] MEDS: Morphine Sulfate Immed Release 15 MG TABLET PO (13:54)
[2024-10-25] MEDS: Lidocaine 4 % Patch ADH..PATCH 1 PATCH TRANSDERMA (13:55)
== END 2024-10-25 17:00 | disposition left against medical advice (07) ==
PROVIDERS: Emergency Provider Emergency Medicine; PCP Internal Medicine
DX: S39.92XA Unspecified injury of lower back, initial encounter (principal); R35.0 Frequency of micturition; M54.2 Cervicalgia; R51.9 Headache, unspecified; M54.6 Pain in thoracic spine; F17.210 Nicotine dependence, cigarettes, uncomplicated; X58.XXXA Exposure to other specified factors, initial encounter; Y93.9 Activity, unspecified; Y92.9 Unspecified place or not applicable; Y99.8 Other external cause status; Z79.899 Other long term (current) drug therapy
CPT/HCPCS: 70450; 72072; 72100; 72125; 99284

== ENCOUNTER → 2024-10-25 12:43 | Outpatient (BNV) | payer MEDICARE, SELFPAY | PROVIDERS: Emergency Provider Emergency Medicine; PCP Internal Medicine; Visit Provider Radiology Diagnostic Radiology | DX: M43.22 Fusion of spine, cervical region (principal); S09.90XA Unspecified injury of head, initial encounter; M51.360 Other intervertebral disc degeneration, lumbar region with discogenic back pain only; M54.6 Pain in thoracic spine; W11.XXXA Fall on and from ladder, initial encounter | CPT/HCPCS: 70450; 72072; 72100; 72125 ==

== ENCOUNTER 2025-02-23 13:13 | Outpatient (AMB) | payer MEDICARE, SELFPAY ==
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
[2025-02-23 13:31] VITALS: BP 120/78; PULSE 73; RESP 17; TEMP 36.7; O2SAT 96; BMI 38.3
--- OUTSIDE RECORDS SUMMARY | 2025-02-23 16:10 | XMS_ITS | Clinical Summary ---
Author Organization [facility] Address [address] [place] [address] Care Team Providers Care Air Transportation Provider Name Role Phone Pcp, No Primary Care [...] 78 06/22/2019 11:15 AM EST Temperature 37.1 C (98.7 F) 06/22/2019 11:15 AM EST Respiratory Rate - - Oxygen Saturation 98% [...] Vaccine (1 of 2) 2012 Influenza Vaccine 11/20/2024 COVID-19 Vaccine (1 - 2023-2 5 season) 2024 RSV Vaccine 50 years and old er and Patients (1 - 1-dose 75+ series) 2037 Hepatitis B Vaccines Aged Out No long er eligible based on patient's age to complete this topic Insurance MEDICARE PART A & B Care Teams Air Transportation Provider Relationship Specialty Start Date End Date Pcp, No PCP - General General Medicine 04/22/19
--- OUTSIDE RECORDS SUMMARY | 2025-02-23 16:10 | XMS_ITS | Data Portability ---
Author Organization [facility], [address] Address [address] [place] [address] Care Team Providers Care Nutritionist Public Health Name Role Phone [facility] Primary Care Provider Assessment No assessment recorded. Plan of Treatment Reminders Order Date Submit Date Provider Last Modified By Organization Details Last Modified Time Details Appointments None recorded. Lab None recorded. Referral None recorded. Procedures None recorded. Surgeries None recorded. Imaging None recorded. Medication Orders Polytrim 10,000 unit-1 mg/mL eye drops 2022 023 [id number], [address] [place], [address], 3 09:03:10 prednisone 20 mg tablet 2022 023 [id number], [address] [place], [address], 3 09:03:09 diphenhydra mine 25 mg capsule 2022 023 [id number] [address] [place], [address], 3 09:03:09 Patient TargetsNo targets recorded. Patient Instructions Encounter Date Encounter Id Patient Instructions Last Modified By Organization Details Last Modified Time 04/30/2022 [id number] Apply warm, mois t compresses over closed [...] not disposable, clean thoroughly before using again. [email or web address] Not available 04/30/2022 09:02:43 Uncertain etiology Will Rx prednisone x 3 d Zyrtec daily x 2 weeks Topical steroid x 1 week Eliminate any new foods, meds, soaps, detergents, hygeine products etc Follow up as needed for no improvement or worsening symptoms Discussed concerning red flags with patient and reasons to follow up in the Emergency Department urgently. [email or web address] Not available 04/30/2022 09:02:59 Reason for Referral None Reported. Procedures Surgical History Date Name Laterality Status Provider Name and Address Organization Details Recorded Time procedure on back completed [email or web address] 04/30/2022 08:45:54 Gastric bypass for obesity completed [facility]YA [email or web address] 04/30/2022 08:46:07 Imaging Results None recorded. [...] Pulse oximetry Heart rate Respiratory rate Systolic And Diastolic Provider Name and Address Organization Details Last Updated DateTime 3 167.64 cm 27.3 kg/m2 85273.1 1 g 97.1 [degF] 95 % 95 % 65 /min 16 /min 107/67 mm[Hg] ASHLEEFlakito YEN [facility] - [facility] 08:49:33 Social History Question Answer Notes LastModified by Organizat ion Details LastModified Time Tobacco Smoking Status Current Every Day Smoker KRISTA YEN wagner [place] - [facility] 04/30/2022 08:47:12 Have You Had Direct Contact, Or Contact During Intimacy, With Monkeypox Rash, Scabs, Or Body Fluids From A Person With Monkeypox? No [email or web address] Information not available 04/30/2022 Have You Recently Traveled Abroad? No [email or web address] Information not available 04/30/2022 Sex: Unknown Functional Status Question Answer Note LastModified by Organizat ion Details LastModified Time Do you use any illicit or recreational drugs? No [email or web address] Information not available 04/30/2022 What is your level of alcohol consumption? None [email or web address] Information not available 04/30/2022 Mental Status None recorded. Family History Relationship Description Onset Age of this Age Resolved Age Notes LastModified by Organization Details LastModified Time Father No current problems or disability [email or web address] Not available 04/30 08:45:34 Mother No current problems or disability [email or web address] Not available 04/30 08:45:35 Medical History Condition [...] Diagnosis SNOMED-CT Code Diagnosis ICD10 Code Diagnosis IMO Codes Diagnosis Note [id number] [facility] [address] [place] [address] 05/17/2018 10:06:58 05/17/2018 11:17:23 [id number] [facility] [address] [place] [address] 02/05/2019 11:11:01 02/05/2019 12:48:14 [id number] [address] [place] [address] 02/27/2019 12:30:54 02/27/2019 13:27:26 [id number] [address] [place] [address] 06/10/2019 11:00:06 06/10/2019 11:53:52 [id number] [address] [place] [address] 12/09/2017 08:26:42 12/09/2017 09:51:46 [id number] [address] [place] [address] 10/17/2019 13:11:34 10/17/2019 14:44:33 [id number] [address] [place] [address] 11/06/2019 16:08:26 11/06/2019 16:30:34 [id number] [address] [place] [address] 01/24/2022 08:23:16 01/24/2022 11:53:56 [id number] [address] [place] [address] 04/24/2018 08:59:05 04/24/2018 10:07:52 [id number] [address] [place] [address] 08/26/2020 13:14:17 08/26/2020 14:50:48 [id number] [address] [place] [address] 08/02/2018 11:54:27 08/02/2018 12:50:35 [id number] [address] [place] [address] 07/18/2020 11:23:35 07/18/2020 12:50:36 [id number] [address] [place] [address] 06/16/2016 12:47:45 06/16/2016 14:18:29 [id number] [address] [place] [address] 03/09/2021 18:31:21 03/09/2021 19:21:50 [id number] [address] [place] [address] 10/17/2020 14:44:06 10/17/2020 15:45:43 [id number] [address] [place] [address] 02/05/2020 17:27:17 02/05/2020 20:18:22 [id number] [address] [place] [address] 10/25/2018 14:57:35 10/25/2018 15:53:24 [id number] [address] [place] [address] 11/24/2019 14:46:22 11/24/2019 16:49:09 [id number] [address] [place] [address] 09/26/2016 19:08:06 09/26/2016 20:37:55 [id number] [address] [place] [address] 01/30/2019 11:09:39 01/30/2019 11:50:19 [id number] [address] [place] [address] 08/07/2017 17:58:06 08/07/2017 20:05:16 [id number] 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 NP [address] [place] [address] 04/30/2022 08:20:58 04/30/2022 09:07:24 Acute conjunctivitis of bilateral eyes [id number] 33118 H10.33 Allergic r eaction to substance [id number] T78.40XA Health Concerns Section Related Observation LastModified by Organization Detai ls LastModified Time None Recorded Concern Status LastModified by Organization Details LastModified Time None Recorded Advance Directives Directive None Recorded Payers Insurance Date Sequence Insurance Name Policy Number Policy Coleman Covered Member ID Coleman Member ID Guarantor Name 04/30/2022 1 [place] [employer] Justa Ritchie [id number] [facility] 04/30/2022 2 [place] [facility] Justa Ritchie [id number] [facility] 04/30/2022 [place] - SPECIALITY CLAIMS (MEDICARE [facility] A) Justa Larsen [id number] Justa [facility] Notes Date Note Type Note Provider Name and Address Organization Details Recorded Time 04/30/2022 text/html puffiness around bilateral eyes , conjunctiva redness bilateral , periorbital swelling bilateral x 1 day. 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 NP [address] [place], [address], [place] - [facility] 04/30/2022 09:03:32 OBGyn Episode No OBEpisode recorded.
== END 2025-02-23 14:44 | disposition home or self-care (01) ==
LOC: HO.HMCC 13:14
PROVIDERS: PCP Internal Medicine; Visit Provider Internal Medicine
DX: Z13.9 Encounter for screening, unspecified (principal)

== ENCOUNTER → 2025-02-23 13:13 | Outpatient (BNVA) | payer MEDICARE, SELFPAY | PROVIDERS: PCP Internal Medicine; Visit Provider Internal Medicine | DX: Z01.818 Encounter for other preprocedural examination (principal); E11.65 Type 2 diabetes mellitus with hyperglycemia; E11.40 Type 2 diabetes mellitus with diabetic neuropathy, unspecified; E78.2 Mixed hyperlipidemia; K21.9 Gastro-esophageal reflux disease without esophagitis; M51.360 Other intervertebral disc degeneration, lumbar region with discogenic back pain only; G47.33 Obstructive sleep apnea (adult) (pediatric) | CPT/HCPCS: 83036; 96127; 99212 ==

== ENCOUNTER 2025-03-29 11:27 | Outpatient (AMB) | payer MEDICARE, SELFPAY ==
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
[2025-03-29 11:06] VITALS: BMI 37.8
== END 2025-03-29 11:28 | disposition home or self-care (01) ==
LOC: HO.HBS 11:27
PROVIDERS: PCP Internal Medicine; Visit Provider Physician Assistant Surgical
DX: E66.811 Obesity, class 1 (principal); E11.65 Type 2 diabetes mellitus with hyperglycemia
CPT/HCPCS: 99213; G2211

== ENCOUNTER → 2025-03-29 11:27 | Outpatient (BNVA) | payer MEDICARE, SELFPAY | PROVIDERS: PCP Internal Medicine; Visit Provider Physician Assistant Surgical | DX: E66.811 Obesity, class 1 (principal); E11.65 Type 2 diabetes mellitus with hyperglycemia; Z68.37 Body mass index [BMI] 37.0-37.9, adult; Z90.3 Acquired absence of stomach [part of] | CPT/HCPCS: 99212 ==

== ENCOUNTER 2025-04-08 19:35 | Emergency (ER) | payer MEDICARE, SELFPAY ==
--- NOTE | ~2025-04-08 | XR_ITS ---
CLINICAL HISTORY: pain 4 views lumbar spine Comparison: CR - XR LUMBAR SPINE 2-3V - 10/25/24 13:08 EDT Findings: Straightening of the lumbar spine is similar to prior. Posterior fusion at L4-L5 with intervertebral disc spacers. Hardware is intact and stable in position. Chronic mild anterior wedging of L2. No acute fracture or listhesis. Multilevel degenerative changes. Subcutaneous device in the left flank. IMPRESSION: 1. Stable posterior fusion at L4-L5 with intact hardware. 2. No acute findings. This document has been electronically signed by: Ju Landa MD on 04/08/2025 21:22:07
--- NOTE | ~2025-04-08 | CT_ITS ---
CLINICAL HISTORY: trauma CT head without contrast Comparison: CT/SR - CT HEAD/BRAIN WO IV CON - 10/25/24 12:48 EDT Findings: No intra-axial mass, midline shift, hydrocephalus, or acute hemorrhage. No significant atrophy-like change or white matter disease. The visualized paranasal sinuses and mastoid air cells are normal. The orbits are within normal limits. No skull fracture. IMPRESSION: 1. No acute intracranial findings. This document has been electronically signed by: Ju Landa MD on 04/09/2025 00:04:12
[2025-04-08 20:17] VITALS: BP 137/63; PULSE 90; RESP 20; TEMP 37.6; O2SAT 95; BMI 35.4
[2025-04-08 21:10] LABS: MANUAL DIFF FLAG NO
[2025-04-08 21:29] LABS: Alanine Aminotransferase 14 U/L (0-31); Albumin Level 3.9 g/dL (3.5-5.0); Alkaline Phosphatase 75 U/L (39-117); Anion Gap 12 (12-20); Aspartate Amino Transferase 23 U/L (5-31); Blood Urea Nitrogen 6 mg/dL (9-16); Calcium 9.2 mg/dL (8.4-10.2); Carbon Dioxide 31 mmol/L (22-29); Chloride 96 mmol/L (96-108); Creatinine Clr Calc Pharmacy 97.4; Estimated Glomerular Filt Rate > 60; Potassium 4.0 mmol/L (3.3-5.1); Sodium 135 mmol/L (135-145); Total Protein 7.2 g/dL (6.5-8.0)
[2025-04-08 21:32] LABS: Hematocrit 43.1 % (37.0-47.0); Hemoglobin 13.9 g/dl (12.0-16.0); Imm Gran Abs Auto 0.04 X10*3/uL (0.00-0.03); Imm Gran Pct Auto 0.5 % (0.0-0.4); Lymphocytes Absolute Auto 1.9 X10*3/uL (1.2-4.9); Mean Corpuscular HGB Conc 32.3 g/dl (31.0-35.0); Mean Corpuscular Hemoglobin 28.9 pg (27.0-33.0); Mean Corpuscular Volume 89.6 fL (80.0-98.0); NRBC Abs Auto 0.000 X10*3/uL (0.0-0.012); NRBC Pct Auto 0.0 /100WBC (0.0-0.2); Platelet Count 146 X10*3/uL (160-400); Red Blood Count 4.81 X10*6/uL (4.20-5.50); White Blood Count 7.7 X10*3/uL (4.8-10.8)
--- OUTSIDE RECORDS SUMMARY | 2025-04-08 22:20 | XMS_ITS | Data Portability ---
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 Plan of Treatment Reminders Order Date Submit Date Provider Last Modified By Organization Details Last Modified Time Details Appointments None recorded. Lab None recorded. Referral None recorded. Procedures None recorded. Surgeries None recorded. Imaging None recorded. Medication Orders Polytrim 10,000 unit-1 mg/mL eye drops 2022 023 [facility] #[id number], [address] [place], [address], 3 09:03:10 prednisone 20 mg tablet 2022 023 [facility] #[id number], [address] [place], [address], 3 09:03:09 diphenhydra mine 25 mg capsule 2022 023 [id number] [address] [place], [address], 3 09:03:09 Patient TargetsNo targets recorded. Patient Instructions Encounter Date Encounter Id Patient Instructions Last Modified By Organization Details Last Modified Time 04/30/2022 [id number] Apply warm, mois t compresses over closed [...] Details Recorded Time procedure on back completed [facility] 04/30/2022 08:45:54 Gastric bypass for obesity completed [facility] 04/30/2022 08:46:07 Imaging Results None recorded. [...] (BMI) Body weight Body temperature Oxygen saturation Heart rate Respiratory rate Systolic And Diastolic Provider Name and Address Organization Details Last Updated DateTime 3 167.64 cm 27.3 kg/m2 34655.1 1 g 97.1 [degF] 95 % 65 /min 16 /min 107/67 mm[Hg] KRISTA OSORIOFFEY PA - [facility] 08:49:33 Social History Question Answer Notes LastModified by Organizat ion Details LastModified Time Tobacco Smoking Status Current Every Day Smoker KRISTA BARLOW bernard, PA - [facility] 04/30/2022 08:47:12 Have You Had Direct Contact, Or Contact During Intimacy, With Monkeypox Rash, Scabs, Or Body Fluids From A Person With Monkeypox? No [email or web address] Information not available 04/30/2022 Have You Recently Traveled Abroad? No [email or web address] Information not available 04/30/2022 Sex: Unknown Functional Status Question Answer Note LastModified by Organizat ion Details LastModified Time Do you use any illicit or recreational drugs? No [email or web address] Information not available 04/30/2022 What is your level of alcohol consumption? None [email or web address] Information not available 04/30/2022 Mental Status None recorded. Family History Relationship Description Onset Age of this Age Resolved Age Notes LastModified by Organization Details LastModified Time Father No current problems or disability [email or web address] Not available 04/30 08:45:34 Mother No current problems or disability [email or web address] Not available 04/30 08:45:35 Medical History Condition [...] ICD10 Code Diagnosis IMO Codes Diagnosis Note [id number] [facility] [address] [place] [address] 05/17/2018 10:06:58 05/17/2018 11:17:23 [id number] [facility] [address] [place] [address] 02/05/2019 11:11:01 02/05/2019 12:48:14 [id number] [address] [address] [place] [address] 02/27/2019 12:30:54 02/27/2019 13:27:26 [id number] [facility] [address] [address] [place] [address] 06/10/2019 11:00:06 06/10/2019 11:53:52 [id number] [address] [address] [address] [place] [address] 12/09/2017 08:26:42 12/09/2017 09:51:46 [id number] [address] [address] [address] [place] [address] 10/17/2019 13:11:34 10/17/2019 14:44:33 [id number] [address] [address] [address] [place] [address] 11/06/2019 16:08:26 11/06/2019 16:30:34 [id number] [address] [address] [place] [address] 01/24/2022 08:23:16 01/24/2022 11:53:56 [id number] [address] [address] [place] [address] 04/24/2018 08:59:05 04/24/2018 10:07:52 [id number] [address] [address] [address] [place] [address] 08/26/2020 13:14:17 08/26/2020 14:50:48 [id number] [address] [address] [address] [place] [address] 08/02/2018 11:54:27 08/02/2018 12:50:35 [id number] [address] [facility] [address] [address] [place] [address] 07/18/2020 11:23:35 07/18/2020 12:50:36 [id number] [address] [address] [place] [address] 06/16/2016 12:47:45 06/16/2016 14:18:29 [id number] [address] [address] [place] [address] 03/09/2021 18:31:21 03/09/2021 19:21:50 [id number] [address] [address] [place] [address] 10/17/2020 14:44:06 10/17/2020 15:45:43 [id number] [address] [address] [address] [place] [address] 02/05/2020 17:27:17 02/05/2020 20:18:22 [id number] [address] [address] [address] [place] [address] 10/25/2018 14:57:35 10/25/2018 15:53:24 [id number] [address] [facility] [address] [address] [place] [address] 11/24/2019 14:46:22 11/24/2019 16:49:09 [id number] [address] [address] [address] [place] [address] 09/26/2016 19:08:06 09/26/2016 20:37:55 [id number] [address] [address] [place] [address] 01/30/2019 11:09:39 01/30/2019 11:50:19 [id number] [address] [address] [address] [place] [address] 08/07/2017 17:58:06 08/07/2017 20:05:16 [id number] 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 NP [address] [place] [address] 04/30/2022 08:20:58 04/30/2022 09:07:24 Acute conjunctivitis of bilateral eyes [id number] 07653 H10.33 Allergic r eaction to substance [id number] T78.40XA Health Concerns Section Related Observation LastModified by Organization Detai ls LastModified Time None Recorded Concern Status LastModified by Organization Details LastModified Time None Recorded Advance Directives Directive None Recorded Payers Insurance Date Sequence Insurance Name Policy Number Policy Coleman Covered Member ID Coleman Member ID Guarantor Name 04/30/2022 1 MEDICARE B-PA: [employer] Justa Ritchie [id number] Justa Hammerghazal 04/30/2022 2 MEDICAID-[facility] Justa Ritchieg [id number] [facility] 04/30/2022 NORIDIAN - SPECIALITY CLAIMS (MEDICARE [facility] Justa Larsen [id number] [facility] Notes Date Note Type Note Provider Name and Address Organization Details Recorded Time 04/30/2022 text/html puffiness around bilateral eyes , conjunctiva redness bilateral , periorbital swelling bilateral x 1 day. 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 NP [address] [place], [address], PA - [facility] 04/30/2022 09:03:32 OBGyn Episode No OBEpisode recorded.
--- OUTSIDE RECORDS SUMMARY | 2025-04-08 22:20 | XMS_ITS | Clinical Summary ---
Author Organization [facility] Address [address] [place] [address] Care Team Providers Care Senior It Assistant Name Role Phone Pcp, No Primary Care [...] Influenza Vaccine 11/20/2024 COVID-19 Vaccine (1 - 2024-2 6 season) 2024 RSV Vaccine 50 years and old er and Patients (1 - 1-dose 75+ series) 2037 Hepatitis B Vaccines Aged Out No long er eligible based on patient's age to complete this topic Insurance MEDICARE PART A & B Care Teams Senior It Assistant Relationship Specialty Start Date End Date Pcp, No PCP - General General Medicine 04/22/19
[2025-04-08] MEDS: HYDROcodone Bit/Acetam 5/325 TABLET 1 TAB PO (22:49)
--- NOTE | 2025-04-08 22:50 | PC.NURSE ---
late entry - this RN had triaged patient. patient state she was unable to ambulate and arrived in wheelchair. patient placed back in waiting room but was moving herself in wheel chair around the waiting room. this RN hear a yell and a loud noise, patient seen to be on the ground. stated she had to go to the bathroom. no loc. but stated she hit the right side of her head. patient did not ask for assistance nor was she near a bathroom to use. security and [facility] came to assist patient. patient placed back in her wheelchair and stated will I be going back now . meteorologist in charge aware and patient placed in RP.
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
[2025-04-09 00:11] LABS: Appearance Urine Cloudy; Glucose Urine UA Negative (Negative); PH 7.0 (5.0-9.0); Specific Gravity - Urine 1.020 (1.005-1.025); UMIC TRIGGER UACC YES
[2025-04-09 00:20] LABS: UACC Culture Trigger YES
[2025-04-09 00:55] VITALS: BP 119/49; PULSE 80; RESP 18; TEMP 36.2; O2SAT 92
[2025-04-09 01:11] VITALS: BP 119/49; PULSE 80; RESP 18; TEMP 36.2; O2SAT 92
== END 2025-04-09 01:12 | disposition home or self-care (01) ==
PROVIDERS: Emergency Provider Emergency Medicine Emergency Medical Services; PCP Internal Medicine
DX: G89.29 Other chronic pain (principal); M54.50 Low back pain, unspecified; S09.90XA Unspecified injury of head, initial encounter; S00.83XA Contusion of other part of head, initial encounter; W05.0XXA Fall from non-moving wheelchair, initial encounter; Y93.89 Activity, other specified; Y92.238 Other place in hospital as the place of occurrence of the external cause; Y99.9 Unspecified external cause status; Z79.899 Other long term (current) drug therapy
CPT/HCPCS: 36415; 70450; 72100; 80053; 81001; 85025; 87086; 87088; 87186; 99283; 99284

== ENCOUNTER → 2025-04-08 20:35 | Outpatient (BNV) | payer MEDICARE, SELFPAY | PROVIDERS: PCP Internal Medicine; Visit Provider Radiology Diagnostic Radiology | DX: M43.26 Fusion of spine, lumbar region (principal) | CPT/HCPCS: 70450; 72100 ==